=== PATIENT | female | born 1945 | race Caucasian/White ===

== ENCOUNTER → 2016-05-04 | Outpatient (CLI) | payer MEDICARE, OTHER ==
[2016-03-18 16:49] VITALS: BP 135/85
[~2016-05-04] MED LIST: ACET500T68 PO; ALPR0.5T10 PO; ASPI-482 PO; ASPI325T4 PO; BUPR100T6 PO; BUTA-14 PO; BUTA1CAP29 PO; CYCL10TA2 PO; DICY10CA3 PO; ESTR1TAB15 PO; FENT1PAT17 TD; FLUT16SP NS; GABA-585 PO; HYDR-2666 PO; HYDR-2678 PO; IBUP-1060 PO; IBUP200T43 PO; LEVO25TA4 PO; MELO-156 PO; OMEP40CA5 PO; ONDA8TAB12 PO; RISP0.5T18 PO; SIMV20TA PO; ZOLP5TAB PO; [UNRECOGNIZED DRUG - CODE]; [UNRECOGNIZED DRUG - CODE]; [UNRECOGNIZED DRUG - CODE] IJ; [UNRECOGNIZED DRUG - OTHER]; gi cocktail PO
--- NOTE | 2016-05-05 04:46 | PAIN ---
DATE OF SERVICE: 05/04/2016 PROGRESS NOTE DIAGNOSES: 1. Cervical radiculopathy with post-cervical laminectomy syndrome. 2. Lumbar degenerative disk disease with lumbar radiculopathy. 3. Bilateral knee joint pain and hip joint pain with primary osteoarthritis. HISTORY OF PRESENT ILLNESS: The patient is a 70-year-old female who returns for followup status post recent revision and replacement of right-sided stimulator generator with good results with the stimulation, she is reporting very good coverage, but she is having some pain with the pocket that the generator has been flipping posteriorly in the inferior aspect of it causing some pain and some pressure on her back itself. When it does this, the patient reports that she is having some significant pain and has to manually pushed down and flip the stimulator down into a more flat configuration to get it to charge and to be more comfortable. The patient reports otherwise doing well. Reports the pain as 4 on a scale of 10. Overall still pain in the low back and leg as well as the neck and shoulders with a combination of intrathecal therapy with her intrathecal pump and the stimulator she is doing very well with overall about 70% to 80% improvement without any side effects. The patient's old chart was reviewed as her current medication regimen updated. Current review of systems updated today as well. PHYSICAL EXAMINATION: VITAL SIGNS: Today, the patient's blood pressure is 119/64, pulse 85, respirations 16, temperature 98.1 degrees Fahrenheit, height is 5 feet 2 inches, weight is 205 pounds. GENERAL: The patient is awake, alert, oriented, appropriate, very pleasant demeanor. HEENT: Shows normocephalic, atraumatic. Extraocular movements are intact, symmetrical. Oral cavity, mucous membranes are moist and pink. Dentition is intact. NECK: Shows anterior throat supple. Swallow reflex is symmetrical. Neck shows good rotation motion both laterally greater than 45 degrees as well as extension, full forward flexion without significant tenderness. CHEST: Shows normal on inspection with breath sounds clear to auscultation bilaterally. HEART: Shows S1 and S2 clear. ABDOMEN: Soft, obese, nontender, nondistended. Easily palpable intrathecal pump is noted in the left lower quadrant, which is nontender. BACK: The patient's back shows spine grossly midline. Well-healed surgical scarring is noted. The lumbar paraspinous muscle shows some [id number] tenderness with palpation, but only diffusely in the lower lumbar distribution bilaterally. The patient's right-sided gluteus shows a well-healed surgical scar from recent replacement of spinal cord stimulator battery with some mobility with palpation in the inferior aspect of the stimulator itself, as it is anchored internally to the pocket on the superior aspect where the anchoring devices holes for anchoring are provided. But the patient's pocket is still manipulatable and the generator can be pushed into a more horizontal position, posterior vertical when the patient is standing, which is very tender for her. PLAN: Options were discussed with the patient. We will schedule patient for revision of the right-sided stimulator generator pocket and have this performed once scheduling time is available. We discussed the risk of the procedure including bleeding, infection, possibility of poor results regarding pain control. Damage to the stimulator itself and the patient is willing to undergo this and we will get her scheduled when available. The patient was given refill medications today for hydrocodone as she is doing well with this, but with the increased pain in her stimulator pocket has been using more of these lately, but again without side effect. CHITRA EPPERSON MD DR: TRAV/benito JOB#: [id number] / [id number]
== END | disposition home or self-care (01) ==
LOC: PNCL 11:09
PROVIDERS: ATTEND Anesthesiology
DX: M54.12 Radiculopathy, cervical region (principal); M96.1 Postlaminectomy syndrome, not elsewhere classified; M51.16 Intervertebral disc disorders with radiculopathy, lumbar region; M25.562 Pain in left knee; M25.561 Pain in right knee; M25.552 Pain in left hip; M25.551 Pain in right hip; M17.0 Bilateral primary osteoarthritis of knee
CPT/HCPCS: G0463

== ENCOUNTER → 2016-05-27 | Outpatient (CLI) | payer MEDICARE, OTHER ==
[2016-03-18 16:49] VITALS: BP 135/85
[~2016-05-27] MED LIST changes: +IOHEXOL 180 MG/ML 10 ML VIAL. ONE
--- NOTE | 2016-05-28 03:12 | PAIN ---
DATE OF SERVICE: 05/27/2016 DIAGNOSES: 1. Bilateral knee joint pain with primary osteoarthritis of the knee joints. 2. Cervical radiculopathy with post-laminectomy syndrome. 3. Degenerative disk disease, lumbar spine with lumbar spinal cord stimulator. HISTORY OF PRESENT ILLNESS: The patient is a 70-year-old female who returns for followup status post previous knee injections as well as revision of her spinal cord stimulator generator and intrathecal pump. The patient reports significant pain in the knees bilaterally, right greater than left, it is sharp, aching and dull alternating, rates it 8 on a scale of 10, mostly in the right knee and we have had good success with intra-articular knee joint injections in the past with steroid as well as Synvisc and she would like to try the Synvisc routine again. We discussed this with her earlier and she returns today for #1 Synvisc injection in the right knee. The patient reports it is sharp, again aching alternating with dull pain, worse with standing and walking, worse with putting all of her weight on her knees such as stepping up on stairs or on a curb with all the weight on one side. The patient reports right knee is worse than the left in the pain ____ and we will start with this today. The patient reports no new motor or sensory deficits, no new bowel or bladder incontinence or other complaints. The patient is doing well with her medication regimen, intrathecal pump as well as oral medications with good results and about 75% improvement without side effects with this in regard to the medications that she is taking. PHYSICAL EXAMINATION: VITAL SIGNS: The patient's blood pressure ____/92, pulse 74, respirations 18, temperature 97.9 degrees Fahrenheit, height is 5 feet 2 inches, weight is 205 pounds. GENERAL: The patient is awake, alert, oriented, appropriate, very pleasant demeanor. The patient accompanied by her . HEENT: Head shows normocephalic, atraumatic. The patient wears eyeglasses. Extraocular movements are intact and symmetrical. Oral cavity, mucous membranes are moist and pink. Dentition is intact. NECK: Shows anterior throat supple without palpable lymphadenopathy noted. Swallow reflex is symmetrical. CHEST: Shows normal on inspection. Breath sounds clear to auscultation bilaterally. HEART: Shows S1 and S2 clear. ABDOMEN: Soft, nontender, nondistended. Well-healed midline surgical scars noted. The patient has a small area on the left of the midline near the surgical scar where she does seem to have a slight outpouching consistent with a possible herniation from the previous surgery without any bowel sounds within it, but mildly tender with bearing down shows increased bulging of this area just to the left of midline in the upper abdomen. Otherwise, nontender. The patient's intrathecal pump is easily palpable without tenderness. BACK: Shows spine grossly midline. Lumbar paraspinous musculature shows some moderate tenderness throughout with palpation bilaterally and intrathecally ____spinal cord stimulator generator is palpable over the right gluteus, which has not been moving as much by her report and indeed it cannot, I was unable to get it to move or flip positions on exam today and is nontender with palpation. EXTREMITIES: Lower extremities show deep tendon reflexes 1+ in the patellar and tendo calcaneus tendons. Patient's knee shows tenderness with weightbearing only, good range of motion in hinged fashion bilaterally without crepitus or popping or ratcheting. PLAN: Options were discussed with the patient. Patient's old chart was reviewed as her current medication regimen and updated. Current review of systems updated today as well. We will plan on a right intra-articular knee joint injection with Synvisc with fluoroscopic guidance. Risks were again discussed including, but not limited to bleeding, infection, possibility of intravascular injection sequelae, spread of local anesthetic and numbness, exposure to fluoroscopy and poor results regarding pain control. The patient understands and wishes to proceed. The patient will return to clinic in approximately one week for a second injection of the Synvisc in the right knee. The patient was counseled as to activity levels as well as side effects to be aware of and followup appointment. DIAGNOSIS: Primary osteoarthritis, right knee joint. PROCEDURE: Intra-articular knee joint injection on the right with Synvisc using C-arm fluoroscopic guidance under sterile prep and drape using local anesthesia. MEDICATIONS INJECTED: 2 mL of Synvisc and 1 mL of Isovue contrast. CONDITION AT DISCHARGE: The patient is stable. The patient tolerated the procedure well, had no complications. CHITRA EPPERSON MD DR: TRAV/benito JOB#: [id number] / [id number]
== END ==
LOC: PNCL 10:01
PROVIDERS: ATTEND Anesthesiology
DX: M17.11 Unilateral primary osteoarthritis, right knee (principal); M51.36 Other intervertebral disc degeneration, lumbar region; M48.06 Spinal stenosis, lumbar region; M96.1 Postlaminectomy syndrome, not elsewhere classified; M54.12 Radiculopathy, cervical region; F41.9 Anxiety disorder, unspecified; F32.9 Major depressive disorder, single episode, unspecified; J44.9 Chronic obstructive pulmonary disease, unspecified; E03.9 Hypothyroidism, unspecified; Z90.49 Acquired absence of other specified parts of digestive tract; Z90.710 Acquired absence of both cervix and uterus
CPT/HCPCS: 20610; 77002

== ENCOUNTER → 2016-06-09 | Outpatient (CLI) | payer MEDICARE, OTHER ==
[2016-03-18 16:49] VITALS: BP 135/85
--- NOTE | 2016-06-10 23:01 | PAIN ---
DATE OF SERVICE: 06/09/2016 DIAGNOSES: 1. Cervical radiculopathy with post-cervical laminectomy syndrome. 2. Lumbar degenerative disk disease. 3. Bilateral knee joint pain with primary osteoarthritis. HISTORY OF PRESENT ILLNESS: The patient is a 70-year-old female who returns for followup status post right knee Synvisc injection about a week and a half ago. The patient reports she did very well for the first week or so, but the pain is beginning to return in the right knee especially with weightbearing, standing, walking, climbing stairs or putting all of her weight on her right leg, anywhere from 4 to a 10 on scale of 10, it was much worse last night, did awaken her from sleep actually, but is now 4 today. The patient reports no new motor or sensory deficits or other complaints, still some low back pain. The patient also with intrathecal pump and spinal cord stimulator and her pump is due for refill tomorrow actually. Patient's right knee shows significant pain, aching and dull, again worse with weightbearing, standing. Left knee is somewhat painful as well, but only about 50% of the pain level of the right knee she is experiencing. The patient reports no new motor or sensory deficits, no new bowel or bladder incontinence or other complaints. PHYSICAL EXAMINATION: VITAL SIGNS: The patient's blood pressure 130/94, pulse 77, respirations 18, temperature 98.3 degrees Fahrenheit, height is 5 feet 2 inches, weight is 207 pounds. GENERAL: The patient is awake, alert, oriented, appropriate, very pleasant demeanor. HEENT: Head shows normocephalic, atraumatic. Extraocular movements are intact and symmetrical. Oral cavity, mucous membranes are moist and pink. Dentition is intact. NECK: Shows anterior throat supple without palpable lymphadenopathy noted. Swallow reflex is symmetrical. CHEST: Shows normal on inspection. HEART: Shows S1 and S2 clear. ABDOMEN: Soft, nontender, nondistended. Patient does have a slight hernia next to ____ midline scar just to the left and easily palpable intrathecal pump in the left lower quadrant, which is nontender. BACK: The patient's back shows spine grossly midline. Well-healed surgical scarring is noted. Spinal cord stimulator is easily palpable over the right gluteus, but is nontender and scars appear well healed. Lumbar paraspinous muscle shows some moderate tenderness with palpation. EXTREMITIES: The patient's lower extremities show deep tendon reflexes at 1+ in the patellar and tendo calcaneus tendons. Significant tenderness with weightbearing on the right knee especially with putting all of her weight on her right leg such as standing on a step stool and coming up and down ____stairs. The patient reports moderate pain in the left knee, but motor and sensory exam is intact with 4/5 dorsiflexion, extension and equal bilaterally. Peripheral pulses are 1+ posterior tibial and dorsalis pedis pulses, but no peripheral edema is noted bilaterally. PLAN: Options were discussed with the patient. The patient's old chart was reviewed as her current medication regimen and updated. Current review of systems updated today as well. We will proceed with a right knee Synvisc injection, the second in this series with fluoroscopic guidance. Risks were again discussed including, but not limited to bleeding, infection, possibility of intravascular injection sequelae, spread of local anesthetic and numbness, side effects of steroid medications, exposure to fluoroscopy and poor results regarding pain control. The patient understands and wishes to proceed. The patient will return to clinic tomorrow for intrathecal pump refill and will return in about 1 week for third Synvisc injection in the right knee as well. The patient was counseled as to activity level as well as side effects to be aware of. DIAGNOSIS: Primary osteoarthritis, bilateral knee joints. PROCEDURE: Right knee intraarticular Synvisc injection with local anesthesia under sterile prep and drape and using a C-arm fluoroscopic guidance. MEDICATIONS INJECTED: Synvisc 2 mL and 2 mL of Isovue contrast. CONDITION AT DISCHARGE: Stable. The patient tolerated the procedure well, had no complications. CHITRA EPPERSON MD DR: TRAV/benito JOB#: [id number] / [id number]
== END | disposition home or self-care (01) ==
LOC: PNCL 09:36
PROVIDERS: ATTEND Anesthesiology
DX: M17.0 Bilateral primary osteoarthritis of knee (principal); M54.12 Radiculopathy, cervical region; M96.1 Postlaminectomy syndrome, not elsewhere classified; M51.36 Other intervertebral disc degeneration, lumbar region; I63.9 Cerebral infarction, unspecified; G45.9 Transient cerebral ischemic attack, unspecified; E78.00 Pure hypercholesterolemia, unspecified; J44.9 Chronic obstructive pulmonary disease, unspecified; Z90.49 Acquired absence of other specified parts of digestive tract; E66.9 Obesity, unspecified; K21.9 Gastro-esophageal reflux disease without esophagitis; Z90.710 Acquired absence of both cervix and uterus; N39.0 Urinary tract infection, site not specified; M19.90 Unspecified osteoarthritis, unspecified site; E03.9 Hypothyroidism, unspecified; F41.9 Anxiety disorder, unspecified; F32.9 Major depressive disorder, single episode, unspecified
CPT/HCPCS: 20610; 77002

== ENCOUNTER → 2016-06-10 | Outpatient (CLI) | payer MEDICARE, OTHER ==
[2016-03-18 16:49] VITALS: BP 135/85
[~2016-06-10] MED LIST changes: +BUPIVACAINE MPF 0.75% 30 ML VIAL. ONE; +CLONIDINE PF 5,000 MCG/10 ML VIAL for PC Charging ONLY. EP ONE; +FENTANYL PF 250 MCG/5 ML VIAL. ONE; -IOHEXOL 180 MG/ML 10 ML VIAL. ONE
--- NOTE | 2016-06-12 01:05 | PAIN ---
DATE OF SERVICE: 06/10/2016 DIAGNOSES: 1. Cervical radiculopathy with cervical post-laminectomy syndrome. 2. Bilateral knee joint pain with primary osteoarthritis. 3. Bilateral hip joint pain with osteoarthritis. 4. Lumbar degenerative disk disease with spinal cord stimulator and intrathecal pump therapy. HISTORY OF PRESENT ILLNESS: The patient is a 70-year-old female who returns follow up for pump refill today. The patient reports doing very well. Reports her pain is 0-1 on a scale of 10 with combination of her stimulator and intrathecal pump working very well for good coverage of her pain in her back and legs as well as her neck and shoulders without side effects with approximately a 75%-80% improvement in overall. The patient reports no new motor or sensory deficits. She did have Synvisc injection in her knee yesterday, which she reports is already feeling better on the right knee. The patient reports otherwise doing well. Her K-TRACS reporting has been appropriate to date as was her urinalysis to date. PHYSICAL EXAMINATION: VITAL SIGNS: The patient's blood pressure is 109/65, pulse 56, respirations 20, temperature 98.1 degrees Fahrenheit. Her weight is 204 pounds. GENERAL: The patient is awake, alert, oriented, appropriate, very pleasant demeanor. HEENT: Shows normocephalic, atraumatic. Extraocular movements are intact and symmetrical. The patient wears eye glasses. Oral cavity shows mucous membranes are moist and pink. Dentition is intact. NECK: Shows anterior throat supple without palpable lymphadenopathy noted. Swallow reflex is symmetrical. CHEST: Shows normal on inspection. Breath sounds are clear to auscultation bilaterally. HEART: Shows S1 and S2 clear. ABDOMEN: Obese, soft, nontender, nondistended. There is a slight area left midline in the upper abdomen with a small hernia, which is palpable, but nontender. Easily palpable intrathecal pump is noted in the left lower quadrant, which is mobile and nontender as well. Options were discussed with the patient. The patient's old chart was reviewed as was her current medication regimen and updated. Current review of systems is updated today as well. We will proceed with intrathecal pump, refill and reprogramming, and also PTM reprogramming today. Risks were discussed including but not limited to bleeding, infection, possibility of extravasation of medication with absorption of high concentration of intrathecal medicines with possible resuscitative measures if necessary as well as poor results regarding pain control. The patient understands and wished to proceed. The patient will return for pump refill prior to July and will return next week for additional Synvisc injections in the right knee as scheduled. DIAGNOSES: 1. Cervical radiculopathy, post-cervical laminectomy syndrome. 2. Bilateral knee joint pain. 3. Bilateral hip joint pain with primary osteoarthritis. 4. Lumbar degenerative disk disease. PROCEDURE: Intrathecal pump refill and reprogramming. Under sterile prep and drape using a 22-gauge Clinipace [employer] noncutting needle, pump was accessed easily without difficulty. 2 mL of the old medication was withdrawn and discarded and 40 mL of the new medication containing bupivacaine, clonidine and fentanyl was then replaced in the pump without difficulty. Needle was removed. Sterile bandage was applied. The patient tolerated procedure well, had no complications. CHITRA EPPERSON MD DR: TRAV/benito JOB#: [id number] / [id number]
== END | disposition home or self-care (01) ==
LOC: PNCL 10:45
PROVIDERS: ATTEND Anesthesiology
DX: M51.36 Other intervertebral disc degeneration, lumbar region (principal); M54.12 Radiculopathy, cervical region; M96.1 Postlaminectomy syndrome, not elsewhere classified
CPT/HCPCS: 95991; J0735; J3010; J3490

== ENCOUNTER → 2016-06-22 | Outpatient (CLI) | payer MEDICARE, OTHER ==
[2016-03-18 16:49] VITALS: BP 135/85
[~2016-06-22] MED LIST changes: -BUPIVACAINE MPF 0.75% 30 ML VIAL. ONE; -CLONIDINE PF 5,000 MCG/10 ML VIAL for PC Charging ONLY. EP ONE; -FENTANYL PF 250 MCG/5 ML VIAL. ONE; +HYLAN G-F 20 16 MG/2 ML SYRINGE. ONE; +IOHEXOL 180 MG/ML 10 ML VIAL. ONE
--- NOTE | 2016-06-23 05:12 | PAIN ---
DATE OF SERVICE: 06/22/2016 DIAGNOSES: 1. Bilateral knee joint pain with osteoarthritis primarily in the knee joints. 2. Bilateral hip joint pain with osteoarthritis in the hip joints. 3. Cervical radiculopathy with post-cervical laminectomy syndrome. 4. Lumbar degenerative disk disease with spinal cord stimulator and intrathecal pump implant. HISTORY OF PRESENT ILLNESS: The patient is a 70-year-old female who returns for followup status post Synvisc injections in the right knee x 2, last was on 06/10/2016. The patient reports she is doing very well with this, about 50% improvement overall in the right knee with pain still present with putting all of her weight on that leg such as climbing stairs or steps, but is getting better. The patient reports still some pain at night, rated at 3 on a scale of 10 at its worst. The patient reports it is intermittent in intensity and much less present during the daytime and walking has improved significantly with the Synvisc after her second injection, her ability to become mobile and is noticing more pain in the left knee now and the right one is feeling better. The patient reports no new motor or sensory deficits or other complaints. The patient is also taking hydrocodone on a long-term basis and has recently had a ventral hernia repair and was taking the hydrocodone as we instructed her to do for the postsurgical pain and will need a refill today. We will take care of this as well. She has had very stable dosing, been very stable regimen, appropriate K-TRACS reporting and appropriate urinalysis to date as well. PHYSICAL EXAMINATION: VITAL SIGNS: The patient's blood pressure 124/85, pulse 85, respirations 18, temperature 97.9 degrees Fahrenheit, height is 5 feet 2 inches, weight is 202 pounds. GENERAL: The patient is awake, alert, oriented, appropriate, very pleasant demeanor. HEENT: Shows normocephalic, atraumatic. Extraocular movements are intact and symmetrical. Oral cavity shows mucous membranes moist and pink. Dentition is intact. NECK: Shows anterior throat supple without palpable lymphadenopathy noted. Swallow reflex is symmetrical. CHEST: Shows normal on inspection. Breath sounds clear to auscultation bilaterally. HEART: Shows S1 and S2 clear. ABDOMEN: Obese, soft, nontender. BACK: Nondistended. Well healing surgical scar in the midline is demonstrated with some mild tenderness near the incision site, but otherwise not tender. Bowel sounds are present in all 4 quadrants. The patient's lower extremities shows significant tenderness with weightbearing on the knees, more on the left than the right; however, and better ambulation with less difficulty with balance and not using any assistive devices on her exam today. Options were discussed with the patient and the patient's old chart was reviewed. CURRENT MEDICATIONS: Regimen updated. CURRENT REVIEW OF SYSTEMS: Updated today as well. We will proceed with the third in the series of Synvisc injection in the right knee with fluoroscopic guidance. Risks were again discussed including, but not limited to bleeding, infection, possibility of intravascular injection sequelae, spread of local anesthetic and numbness as well as exposure to fluoroscopy and poor results regarding pain control. The patient understands and wishes to proceed. The patient will return to clinic in approximately 2 weeks for followup, counseled on return appointment, activity level and side effects to be aware of. DIAGNOSES: Primary osteoarthritis, bilateral knee joints with knee pain. PROCEDURE: Synvisc injection, right knee #3 in the series with C-arm fluoroscopic guidance under sterile prep and drape using local anesthetic. Medications injected is 2 mL of Synvisc and 1.5 mL of Isovue contrast. Condition on discharge is stable. The patient tolerated the procedure well. Had no complications. CHITRA EPPERSON MD DR: TRAV/benito JOB#: [id number] / [id number]
== END | disposition home or self-care (01) ==
LOC: PNCL 10:29
PROVIDERS: ATTEND Anesthesiology
DX: M17.0 Bilateral primary osteoarthritis of knee (principal); F41.9 Anxiety disorder, unspecified; F32.9 Major depressive disorder, single episode, unspecified; E03.9 Hypothyroidism, unspecified; E66.9 Obesity, unspecified; J44.9 Chronic obstructive pulmonary disease, unspecified; K21.9 Gastro-esophageal reflux disease without esophagitis; Z87.442 Personal history of urinary calculi; Z87.39 Personal history of other diseases of the musculoskeletal system and connective tissue; Z90.49 Acquired absence of other specified parts of digestive tract; Z96.698 Presence of other orthopedic joint implants
CPT/HCPCS: 20610; J7325

== ENCOUNTER → 2016-06-29 | Outpatient (CLI) | payer MEDICARE, OTHER ==
[2016-03-18 16:49] VITALS: BP 135/85
[~2016-06-29] MED LIST changes: -HYLAN G-F 20 16 MG/2 ML SYRINGE. ONE
--- NOTE | 2016-06-30 05:18 | PAIN ---
DATE OF SERVICE: 06/29/2016 DIAGNOSES: 1. Cervical radiculopathy with post-cervical laminectomy syndrome. 2. Bilateral knee joint pain with primary osteoarthritis in bilateral knee joints. 3. Bilateral hip joint pain with primary osteoarthritis in bilateral hip joints. 4. Degenerative disk disease of lumbar spine with spinal cord stimulator and intrathecal pump therapy. HISTORY OF PRESENT ILLNESS: The patient is a 79-year-old female, who returns for a followup, status post right-sided Synvisc injections in her knee x 3. The patient reports about 50% improvement in the right knee, but with still some significant pain at night in the knee itself and with standing and walking, but better than it was. The patient is still having some significant pain and hoping to avoid knee replacement anytime soon, but this may be inevitable. The patient reports that her pain now is a 6 on a scale of 10, and the left knee is much more painful than the right one after her Synvisc injections and we will plan to start on her left knee today with the first Synvisc injection in this series. The patient reports again pain that is worse at night on the right side as well as the left, worse with standing and walking, putting all of her weight on her left leg such as climbing stairs. The patient reports no new motor or sensory deficits and rates her pain as a 6 on a scale of 10. No new bowel or bladder incontinence or other complaints. PHYSICAL EXAMINATION: VITAL SIGNS: Today, the patient's blood pressure is 122/81, pulse 77, and respirations 18. Height is 5 feet 2 inches, weight is 202 pounds. The patient's temperature is 98.2 degrees Fahrenheit. GENERAL: The patient is awake, alert, oriented, and appropriate, very pleasant demeanor. HEENT: Head shows normocephalic, atraumatic. The patient wears eyeglasses. Extraocular movements are intact and symmetrical. Oral cavity shows mucous membranes moist and pink. Dentition is intact. NECK: Shows anterior throat supple without palpable lymphadenopathy noted. Swallow reflex is symmetrical. CHEST: Shows normal with inspection. Breath sounds are clear to auscultation bilaterally. HEART: Shows S1 and S2 clear. No murmurs auscultated. ABDOMEN: Obese, soft, nontender, and nondistended. The patient has a well-healed surgical scar in the midline, which is from a recent hernia repair, which is mildly tender in the inferior aspect only, but without rebound and without guarding demonstrated. BACK: Shows spine grossly in midline with some moderate tenderness with palpation in the lower lumbar distribution, but only diffusely in the lumbar paraspinous muscles. The patient's lower extremities show good range of motion in the knee joints with some tenderness in the left knee with even passive motion, but without any specific ratcheting or popping sensation to either knee. Motor exam is strong with approximately 4 on a scale of 5, but equal dorsiflexion, extension, quadriceps, and hamstring flexion and symmetrical. PLAN: Options were discussed with the patient. The patient's old chart was reviewed as was her current medication regimen updated. Current review of systems updated today as well. We will proceed with a left-sided intra-articular knee joint injection with Synvisc under fluoroscopic guidance. Risks were again discussed including, but not limited to bleeding, infection, possibility of epidural hematoma and possibility of intravascular injection and its sequelae, spread of local anesthetic and numbness, exposure to fluoroscopy as well as poor results regarding pain control. The patient understands and wishes to proceed. The patient will return to clinic in approximately 1 week for followup. She was counseled on return appointment, activity level, and side effects to be aware of. DIAGNOSIS: Primary osteoarthritis, bilateral knee joints. PROCEDURE: Left knee joint Synvisc injection with fluoroscopic guidance under sterile prep and drape using local anesthetic. Medication injected is 2 mL of Synvisc and 1.5 mL of Isovue for contrast. CONDITION AT DISCHARGE: Stable. The patient tolerated the procedure well, had no complications. CHITRA EPPERSON MD DR: TRAV/benito JOB#: [id number] / [id number]
== END | disposition home or self-care (01) ==
LOC: PNCL 10:25
PROVIDERS: ATTEND Anesthesiology
DX: M17.0 Bilateral primary osteoarthritis of knee (principal); E78.00 Pure hypercholesterolemia, unspecified; J44.9 Chronic obstructive pulmonary disease, unspecified; E66.9 Obesity, unspecified; K21.9 Gastro-esophageal reflux disease without esophagitis; M19.90 Unspecified osteoarthritis, unspecified site; F41.9 Anxiety disorder, unspecified; F32.9 Major depressive disorder, single episode, unspecified; E03.9 Hypothyroidism, unspecified; Z87.39 Personal history of other diseases of the musculoskeletal system and connective tissue; Z96.698 Presence of other orthopedic joint implants; Z87.442 Personal history of urinary calculi; Z90.49 Acquired absence of other specified parts of digestive tract; Z90.710 Acquired absence of both cervix and uterus
CPT/HCPCS: 20610; 77002

== ENCOUNTER → 2016-07-06 | Outpatient (CLI) | payer MEDICARE, OTHER ==
[2016-03-18 16:49] VITALS: BP 135/85
[~2016-07-06] MED LIST changes: +HYLAN G-F 20 16 MG/2 ML SYRINGE. ONE
--- NOTE | 2016-07-07 05:15 | PAIN ---
DATE OF SERVICE: 07/06/2016 PROGRESS NOTE FOR PAIN CLINIC DIAGNOSES: 1. Cervical radiculopathy with post-cervical laminectomy syndrome. 2. Lumbar radiculopathy with lumbar degenerative disk disease. 3. Bilateral knee joint pain with primary osteoarthritis of knee joints. 4. Bilateral hip joint pain with osteoarthritis of the hip joints. HISTORY OF PRESENT ILLNESS: The patient is a 70-year-old female who returns for followup status post left knee Synvisc injection x 1 and 3 injections on the right. The patient reports that her right knee is still having some significant pain, especially with walking, standing and weightbearing, putting all of her weight on one side. Left side shows improvement of about 40% after the last injection. The patient reports much better with walking on her left knee and she is considering checking back with her orthopedist regarding right knee replacement in the near future. The patient reports no new motor or sensory deficits. Still some aches at night in the knee, but significantly improved on the left side with weightbearing and standing. The patient reports no new motor or sensory deficits, no new bowel or bladder incontinence or other complaints, functioning well with her spinal cord stimulator as well as intrathecal pump without side effects. PHYSICAL EXAMINATION: VITAL SIGNS: Today, the patient's blood pressure is 117/85, pulse 99, respirations 18, temperature 98.0 degrees Fahrenheit, height is 5 feet 2 inches, weight is 201 pounds. GENERAL: The patient is awake, alert, oriented, appropriate, very pleasant demeanor. The patient accompanied by her spouse. HEENT: Head shows normocephalic, atraumatic. The patient wears eyeglasses. Extraocular movements are intact and symmetrical. Oral cavity, mucous membranes are moist and pink. Dentition is intact. NECK: Shows anterior throat supple without palpable lymphadenopathy noted. Swallow reflex is symmetrical. CHEST: Shows normal on inspection. Breath sounds are clear to auscultation bilaterally. HEART: Shows S1 and S2 clear. ABDOMEN: Soft, nontender, nondistended. No palpable organomegaly is noted. No rebound or guarding demonstrated. BACK: Shows spine grossly midline. Well-healed surgical scarring is noted once again with some moderate tenderness to palpation in the lower lumbar distribution bilaterally, but without radiation. EXTREMITIES: The patient's lower extremities show significant tenderness with palpation over the right anterior aspect of the patella and the medial component of the knee with good range of motion, however, bilaterally without popping or ratcheting noted. Left knee shows no significant tenderness with palpation medially or laterally over the collateral ligaments and good range of motion as well without ratcheting, popping or other abnormalities. Motor exam remain strong with lower extremities at approximately 4 on a scale of 5, but equal with dorsiflexion and extension bilaterally. PLAN: Options were discussed with the patient at this time. The patient's old chart was reviewed as her current medication regimen updated. Current review of systems updated today as well. We will proceed with a second Synvisc injection in the left knee under fluoroscopic guidance. Risks were again discussed including, but not limited to bleeding, infection, possibility of intravascular injection sequelae, spread of local anesthetic and numbness, side effects of contrast and exposure to fluoroscopy as well as poor results regarding pain control. The patient understands and wishes to proceed. The patient will return to the clinic in approximately 2 weeks for followup, was counseled on return appointment, activity level and side effects to be aware of. DIAGNOSIS: Primary osteoarthritis, bilateral knee joints. PROCEDURE: Left knee Synvisc injection #2 with ____ fluoroscopic guidance under sterile prep and drape using local anesthetic. Medication injected is 2 mL of Synvisc and 1 mL Isovue contrast. CONDITION AT DISCHARGE: Stable. The patient tolerated the procedure well, had no complications. CHITRA EPPERSON MD DR: TRAV/benito JOB#: [id number] / [id number]
== END | disposition home or self-care (01) ==
LOC: PNCL 10:32
PROVIDERS: ATTEND Anesthesiology
DX: M17.0 Bilateral primary osteoarthritis of knee (principal); M16.0 Bilateral primary osteoarthritis of hip; M51.16 Intervertebral disc disorders with radiculopathy, lumbar region; M96.1 Postlaminectomy syndrome, not elsewhere classified; J44.9 Chronic obstructive pulmonary disease, unspecified; E78.00 Pure hypercholesterolemia, unspecified; E66.9 Obesity, unspecified; M19.90 Unspecified osteoarthritis, unspecified site; F41.9 Anxiety disorder, unspecified; F32.9 Major depressive disorder, single episode, unspecified; E03.9 Hypothyroidism, unspecified; Z86.73 Personal history of transient ischemic attack (TIA), and cerebral infarction without residual deficits; Z90.49 Acquired absence of other specified parts of digestive tract; Z87.442 Personal history of urinary calculi
CPT/HCPCS: 20610

== ENCOUNTER → 2016-07-20 | Outpatient (CLI) | payer MEDICARE, OTHER ==
[2016-03-18 16:49] VITALS: BP 135/85
--- NOTE | 2016-07-21 03:03 | PAIN ---
DATE OF SERVICE: 07/20/2016 PROGRESS NOTE FOR PAIN CLINIC DIAGNOSES: 1. Bilateral knee joint pain with primary osteoarthritis, bilateral knees. 2. Bilateral hip joint pain with osteoarthritis of the hips. 3. Lumbar degenerative disk disease. 4. Cervical radiculopathy with post-cervical laminectomy syndrome. HISTORY OF PRESENT ILLNESS: The patient is a 70-year-old female who returns for followup status post Synvisc injection x 2 in the left knee. The patient reports her pain is decreased by about 50% overall in the left knee. The right knee, however, is significantly painful, is a 10/10, left knee is a 7 on a scale of 10, worse with walking up and down stairs now ____ on the right side primarily, but still significant pain on both sides. The patient reports that she feels Synvisc has been helping on the left side greater than on the right as she has had 3 injections on the right side in the past as well. The patient does have orthopedic referral pending for evaluation for total knee replacement on the right side. The patient reports otherwise doing fairly well. No new motor or sensory deficits, no new complaints. Intrathecal pump as well as spinal cord stimulator functioning well without side effects on either. The patient reports the pain is worse again with walking down stairs on the left knee, ____ left noticeable than the right, but still significant pain with weightbearing. PHYSICAL EXAMINATION: VITAL SIGNS: The patient's blood pressure is 150/96, pulse 85, respirations 18, temperature is 98.0 degrees Fahrenheit, height is 5 feet 2 inches, weight is 201 pounds. GENERAL: The patient is awake, alert, oriented, appropriate, has a very pleasant demeanor. The patient is accompanied by her spouse. HEENT: Shows normocephalic, atraumatic. Extraocular movements are intact, symmetrical. Oral cavity, mucous membranes are moist and pink. Dentition is intact. NECK: Shows anterior throat supple without palpable lymphadenopathy noted. Swallow reflex is symmetrical. CHEST: Shows normal on inspection. Breath sounds are clear to auscultation bilaterally. HEART: Shows S1 and S2 clear. ABDOMEN: Obese, soft, nontender, nondistended. Easily palpable intrathecal pump is noted without pain reported on manipulation. BACK: Shows spine grossly in the midline. Some flattening of the lumbar lordotic curvature is noted with previously well-healed surgical scars and spinal cord stimulator in the right gluteus without tenderness as well with palpation over the battery itself. EXTREMITIES: The patient's lower extremities showed deep tendon reflexes 1+ in the patellar and tendo calcaneus tendons. Motor exam is approximately 4 on a scale of 5, but equal and symmetrical with dorsiflexion, extension, quadriceps and hamstring flexion. The patient's knee shows good range of motion both passively and actively without ratcheting or popping noted. PLAN: Options were discussed with the patient and the patient's old chart was reviewed as was her current medication regimen and updated. Current review of systems updated today as well. We will proceed with a third Synvisc injection in the left knee with fluoroscopic guidance. Risks were again discussed including, but not limited to bleeding, infection, possibility of intravascular injection sequelae, spread of local anesthetic and numbness, exposure to fluoroscopy as well as poor results regarding pain control. The patient understands and wishes to proceed. The patient will return to clinic in approximately 2 weeks for followup, was counseled on return appointment, activity level and side effects to be aware of. DIAGNOSIS: Primary osteoarthritis, bilateral knee joints. PROCEDURE: Left knee Synvisc injection with fluoroscopic guidance under sterile prep and drape using local anesthetic. MEDICATIONS INJECTED: 2 mL of Synvisc and 1.5 mL of Isovue for contrast. CONDITION AT DISCHARGE: Stable. The patient tolerated the procedure well, had no complications. CHITRA EPPERSON MD DR: TRAV/benito JOB#: [id number] / [id number]
== END ==
LOC: PNCL 10:30
PROVIDERS: ATTEND Anesthesiology
DX: M17.0 Bilateral primary osteoarthritis of knee (principal); M16.0 Bilateral primary osteoarthritis of hip; M51.36 Other intervertebral disc degeneration, lumbar region; M50.30 Other cervical disc degeneration, unspecified cervical region
CPT/HCPCS: 20610; 77002; J7325

== ENCOUNTER → 2016-08-09 | Outpatient (CLI) | payer MEDICARE, OTHER ==
[2016-03-18 16:49] VITALS: BP 135/85
[~2016-08-09] MED LIST changes: +BUPIVACAINE MPF 0.75% 30 ML VIAL. ONE; -HYLAN G-F 20 16 MG/2 ML SYRINGE. ONE; -IOHEXOL 180 MG/ML 10 ML VIAL. ONE; +cloNIDine PF 5,000 MCG/10 ML VIAL EP ONE; +fentaNYL PF VIAL 250 MCG/5 ML VIAL ONE
--- NOTE | 2016-08-10 02:24 | PAIN ---
DATE OF SERVICE: 08/09/2016 PROGRESS NOTE FOR PAIN CLINIC DIAGNOSES: 1. Cervical radiculopathy with post-cervical laminectomy syndrome. 2. Bilateral knee joint pain with primary osteoarthritis, bilateral knee joints. 3. Bilateral hip joint pain with osteoarthritis of the bilateral hip joints. 4. Lumbar degenerative disk disease with spinal cord stimulator and intrathecal pump therapy. HISTORY OF PRESENT ILLNESS: The patient is a 71-year-old female who returns for followup status post left knee joint Synvisc injection with good results, but the pain has been returning after 07/20/2016. It was her third injection of Synvisc at that time and reports she did well, but the pain is still bothering her. She has seen her orthopedic surgeon for followup and he is recommending a total knee replacement. She is going to wait until the end of the summer to do this due to personal scheduling issues, but does want to get these done, probably the right knee replaced before the left one. The patient reports otherwise doing fairly well, doing well with her intrathecal pump, which she is here for refill and reprogramming today. No specific side effects and her pain is controlled fairly well, she reports anywhere from a 2 to a 10 on a scale of 10, but 10 is in the knees, mostly on the right side. The patient reports no new motor or sensory deficits, no new bowel or bladder incontinence or other complaints. Again, no side effects with the medications and reports about a 75% improvement with medications in the pump and her stimulator combined. The patient is getting good stimulation in the back and legs where she prefers it with good comfort with this as well. The patient also taking oral medications with good results and no side effects, constipation, dizziness, drowsiness or sedation as well. PHYSICAL EXAMINATION: VITAL SIGNS: Today, the patient's blood pressure is 155/90, pulse is 81, respirations 18, temperature is 98.2 degrees Fahrenheit, height is 5 feet 2 inches, weight is 200 pounds. GENERAL: The patient is awake, alert, oriented, appropriate, has a very pleasant demeanor. HEENT: Shows normocephalic, atraumatic. Extraocular movements are intact, symmetrical. Oral cavity, mucous membranes moist and pink. Dentition is intact. NECK: Shows anterior throat supple without palpable lymphadenopathy noted. Swallow reflex is symmetrical. CHEST: Shows normal on inspection with breath sounds clear to auscultation bilaterally. HEART: Shows S1 and S2 clear. No murmurs auscultated. ABDOMEN: Soft, obese, nontender, nondistended. No palpable organomegaly is noted. No rebound or guarding demonstrated. Easily palpable intrathecal pump is noted in the left lower quadrant, which is mobile, but nontender with well-healed surgical scar in this region as well. PLAN: Options were discussed with the patient. The patient's old chart was reviewed as was her current medication regimen and updated. Current review of systems updated today as well. We will proceed with the intrathecal pump refill and reprogramming today. Risks were discussed including, but not limited to bleeding, infection, possibility of intravascular injection and sequelae, spread of intrathecal medication outside of the pump with absorption and potential resuscitative efforts as well as poor results regarding pain control. The patient understands and wishes to proceed. Under sterile prep and drape, the patient's left lower quadrant of the abdomen was prepped over the site of her intrathecal pump. Using a 22-gauge noncutting [employer] needle, was accessed without difficulty. Aspiration of 2 mL of old medication was withdrawn and discarded and 40 mL of new medication containing bupivacaine, clonidine and fentanyl as noted was then injected into the pump without difficulty. Needle was withdrawn. Sterile bandage was applied. The pump was reprogrammed as to volume and rate settings. Also, PTM settings reprogrammed again. The patient will follow up for refill prior to 10/08/2016 and will check with her PTM if this date will change with use. The patient was discharged in stable and good condition without complications from the procedure. CHITRA EPPERSON MD DR: TRAV/benito JOB#: [id number] / [id number]
== END | disposition home or self-care (01) ==
LOC: PNCL 10:30
PROVIDERS: ATTEND Anesthesiology
DX: M17.0 Bilateral primary osteoarthritis of knee (principal); M16.0 Bilateral primary osteoarthritis of hip; M51.36 Other intervertebral disc degeneration, lumbar region; M96.1 Postlaminectomy syndrome, not elsewhere classified; M54.16 Radiculopathy, lumbar region; J44.9 Chronic obstructive pulmonary disease, unspecified; E78.00 Pure hypercholesterolemia, unspecified; E66.9 Obesity, unspecified; K21.9 Gastro-esophageal reflux disease without esophagitis; E03.9 Hypothyroidism, unspecified; F41.9 Anxiety disorder, unspecified; F32.9 Major depressive disorder, single episode, unspecified; Z90.49 Acquired absence of other specified parts of digestive tract; Z90.710 Acquired absence of both cervix and uterus
CPT/HCPCS: 62370; J0735; J3010; J3490; 95991

== ENCOUNTER → 2016-10-04 | Outpatient (CLI) | payer MEDICARE, OTHER ==
[2016-03-18 16:49] VITALS: BP 135/85
[~2016-10-04] MED LIST changes: -BUPIVACAINE MPF 0.75% 30 ML VIAL. ONE; +CONTRAST GIVEN MC PRN; +IOHEXOL 300 MG/ML 75 ML VIAL IV ONE; -cloNIDine PF 5,000 MCG/10 ML VIAL EP ONE; -fentaNYL PF VIAL 250 MCG/5 ML VIAL ONE
[2016-10-04 09:19] LABS: CALCIUM 8.5 mg/dL (8.5-10.1); CREATININE 0.9 mg/dL (0.6-1.0); GFR 61.7
--- NOTE | 2016-10-04 10:47 | RAD ---
Indication abdominal pain. Assess for potential hernia. Axial images through the abdomen and pelvis were obtained. Approximately 75 cc of Omnipaque 300 was administered intravenously. Only a very small amount of oral contrast was administered. Note is made of a previous examination 06/27/2013. The lung bases are clear. There is a very small hernia in the upper abdomen, containing only fat and appearing uncomplicated. There is considerable atrophy associated with the rectus muscles right greater than left and there is diastases of same. The mid transverse colon abuts the linea alba but does not protrude through it. No additional abdominal wall finding is seen. Battery device in the subcutaneous soft tissues of the left ventral pelvis is noted. Neuro stimulating device is also noted. Postoperative changes are seen associated with the lumbar spine. The liver and spleen appear unremarkable. Clips are noted in the gallbladder fossa. Slightly prominent extrahepatic biliary system is noted. This is likely a function of the postcholecystectomy state. The appearance is similar to the previous exam. The liver and spleen appear unremarkable. No pancreatic adrenal or renal anomalies are seen. Acute finding in the abdomen is not apparent. No acute finding is apparent in the pelvis. IMPRESSION: No acute finding seen in the abdomen or pelvis. Tiny ventral abdominal wall hernia in the upper abdomen containing only fat. Marked thinning of the rectus muscles with associated diastases of same. A portion of the transverse colon abuts the linea alba but does not protrude through it.
== END | disposition home or self-care (01) ==
LOC: CT 09:27
PROVIDERS: ATTEND Surgery
DX: K43.9 Ventral hernia without obstruction or gangrene (principal)
CPT/HCPCS: 36415; 74177; 80048; Q9967

== ENCOUNTER → 2016-10-07 | Outpatient (CLI) | payer MEDICARE, OTHER ==
[2016-03-18 16:49] VITALS: BP 135/85
[~2016-10-07] MED LIST changes: -ASPI325T4 PO; +ASPI325T8 PO; +BUPIVACAINE MPF 0.75% 30 ML VIAL. ONE; -CONTRAST GIVEN MC PRN; -HYDR-2666 PO; +HYDR-2758 PO; -IOHEXOL 300 MG/ML 75 ML VIAL IV ONE; -MELO-156 PO; +MELO7.5T29 PO; -RISP0.5T18 PO; +RISP0.5T24 PO; +cloNIDine PF 5,000 MCG/10 ML VIAL EP ONE; +fentaNYL PF VIAL 250 MCG/5 ML VIAL ONE
--- NOTE | 2016-10-08 09:07 | PAIN ---
DATE OF SERVICE: 10/07/2016 DIAGNOSES: 1. Cervical radiculopathy with post-cervical laminectomy syndrome. 2. Bilateral knee joint pain with osteoarthritis. 3. Bilateral hip joint pain with osteoarthritis. 4. Degenerative disk disease of the lumbar spine with spinal cord stimulator and intrathecal pump therapy. HISTORY OF PRESENT ILLNESS: The patient is a 71-year-old female who returns for followup status post intrathecal pump therapy and for refill today of the intrathecal pump and reprogramming. The patient reports she has been doing very well, has been feeling much better, has decreased her hydrocodone use, has been taking Tylenol instead, but still having some significant headaches and migraines, she is taking some butalbital for that, which seems to be helping fairly well. Also, the patient has been taking Tylenol hydrocodone mostly at night, which is helping with her knee and hip pain. The patient reports her pain is a 7 on a scale of 10 at its worst; it is a 1 on a scale of 10 currently. The patient reports she still awakens from sleep with the pain mostly from her back and knees, about 6 hours of sleep at a time to reposition, get up and walk around, change position in the bed, she is able to get back to sleep. The patient reports no new motor or sensory deficits, no new bowel or bladder incontinence, no side effects with her medications reported. PHYSICAL EXAMINATION: VITAL SIGNS: The patient's blood pressure is 152/80, pulse 68, respirations are 18, temperature 98.0 degrees Fahrenheit, height is 5 feet 2 inches, weight is 205 pounds. GENERAL: The patient is awake, alert, oriented, appropriate, very pleasant demeanor. HEENT: Shows normocephalic and atraumatic. Extraocular movements are intact and symmetrical. Oral cavity shows mucous membranes are moist and pink. Dentition is intact. NECK: Shows anterior throat supple. CHEST: Shows normal on inspection. Breath sounds are clear to auscultation bilaterally. HEART: Shows S1 and S2 clear. ABDOMEN: Obese, soft, nontender, nondistended. The patient's left lower quadrant shows easily palpable intrathecal pump. Options were discussed with the patient. The patient's old chart was reviewed as her current medication regimen and updated. Current review of systems updated today as well, and we will proceed with the intrathecal pump refill and reprogramming as well as PTM reprogramming. This is done under sterile prep and drape using 22-gauge noncutting [employer] kit needle, accessed the pump without difficulty after EMLA cream topical anesthetic, 2 mL of old medication was removed and 40 mL of new medication containing bupivacaine, fentanyl, and clonidine as documented was then replaced. The patient tolerated the procedure well, had no complications. Sterile bandage was applied once the needle was removed. The pump was then reprogrammed as was the PTM. The patient will follow up with return prior to 12/06/2016 for the next pump refill or sooner as necessary. DIAGNOSES: Cervical radiculopathy with post-cervical laminectomy syndrome and lumbar degenerative disk disease. PROCEDURE: Intrathecal pump refill and reprogramming and PTM reprogramming. MEDICATIONS: Include 2 mL of wasted old medication and 40 mL of new medication containing fentanyl, bupivacaine, and clonidine under sterile prep and drape using local anesthetic, topical. COMPLICATIONS: None. CONDITION AT DISCHARGE: Stable. The patient tolerated the procedure well, had no complications. CHITRA EPPERSON MD DR: TRAV/benito JOB#: [id number] / [id number]
== END | disposition home or self-care (01) ==
LOC: PNCL 10:50
PROVIDERS: ATTEND Anesthesiology
DX: M51.36 Other intervertebral disc degeneration, lumbar region (principal); M96.1 Postlaminectomy syndrome, not elsewhere classified; M54.12 Radiculopathy, cervical region; M17.0 Bilateral primary osteoarthritis of knee; M16.0 Bilateral primary osteoarthritis of hip; E78.00 Pure hypercholesterolemia, unspecified; J44.9 Chronic obstructive pulmonary disease, unspecified; F41.9 Anxiety disorder, unspecified; F32.9 Major depressive disorder, single episode, unspecified; E03.9 Hypothyroidism, unspecified; Z90.49 Acquired absence of other specified parts of digestive tract; Z90.710 Acquired absence of both cervix and uterus; Z87.442 Personal history of urinary calculi; Z88.1 Allergy status to other antibiotic agents; Z91.040 Latex allergy status; Z88.8 Allergy status to other drugs, medicaments and biological substances; Z91.048 Other nonmedicinal substance allergy status
CPT/HCPCS: 62370; 95991; J0735; J3010; J3490

== ENCOUNTER → 2016-10-25 | Outpatient (CLI) | payer MEDICARE, OTHER ==
[2016-03-18 16:49] VITALS: BP 135/85
[~2016-10-25] MED LIST changes: +BUPIVACAINE MPF 0.25% 10 ML VIAL. ONE; -BUPIVACAINE MPF 0.75% 30 ML VIAL. ONE; +IOHEXOL 180 MG/ML 10 ML VIAL. ONE; -cloNIDine PF 5,000 MCG/10 ML VIAL EP ONE; -fentaNYL PF VIAL 250 MCG/5 ML VIAL ONE; +methylPREDNISolone ACETATE 80 MG/ML VIAL. ONE
== END | disposition home or self-care (01) ==
LOC: PNCL 11:03
PROVIDERS: ATTEND Anesthesiology
DX: M17.11 Unilateral primary osteoarthritis, right knee (principal); Z86.69 Personal history of other diseases of the nervous system and sense organs; Z86.73 Personal history of transient ischemic attack (TIA), and cerebral infarction without residual deficits; E78.00 Pure hypercholesterolemia, unspecified; J44.9 Chronic obstructive pulmonary disease, unspecified; Z90.49 Acquired absence of other specified parts of digestive tract; E66.9 Obesity, unspecified; Z68.45 Body mass index [BMI] 70 or greater, adult; K21.9 Gastro-esophageal reflux disease without esophagitis; Z90.710 Acquired absence of both cervix and uterus; Z87.442 Personal history of urinary calculi; Z87.440 Personal history of urinary (tract) infections; M19.90 Unspecified osteoarthritis, unspecified site; E03.9 Hypothyroidism, unspecified; F41.9 Anxiety disorder, unspecified; F32.9 Major depressive disorder, single episode, unspecified; Z88.1 Allergy status to other antibiotic agents; Z91.040 Latex allergy status; Z91.048 Other nonmedicinal substance allergy status
CPT/HCPCS: 20610; J1040; J3490

== ENCOUNTER → 2016-11-21 | Outpatient (CLI) | payer MEDICARE, OTHER ==
[2016-03-18 16:49] VITALS: BP 135/85
[~2016-11-21] MED LIST changes: -BUPIVACAINE MPF 0.25% 10 ML VIAL. ONE; +CHOL2000 PO; -IOHEXOL 180 MG/ML 10 ML VIAL. ONE; -methylPREDNISolone ACETATE 80 MG/ML VIAL. ONE
[2016-11-21 09:16] LABS: BASO % 1 % (0-3); EOS % 2 % (0-3); HEMATOCRIT 36.3 % (36.0-47.0); HEMOGLOBIN 12.2 g/dL (12.0-15.5); LYMPH # 3.8 x10^3/uL (1.0-4.8); LYMPH % 51 % (24-48); MEAN CORPUSCULAR HEMOGLOBIN 28 pg (25-35); MEAN CORPUSCULAR HGB CONC 34 g/dL (31-37); MEAN CORPUSCULAR VOLUME 84 fL (79-100); MONO % 11 % (0-9); NEUT % 35 % (31-73); PLATELET COUNT 364 x10^3/uL (140-400); RED CELL DISTRIBUTION WIDTH 16.6 % (11.5-14.5); WHITE BLOOD COUNT 7.6 x10^3/uL (4.0-11.0)
[2016-11-21 09:38] LABS: PROTHROMBIN TIME PATIENT 12.7 SEC (11.7-14.0)
[2016-11-21 09:55] LABS: BILIRUBIN,URINE NEGATIVE (NEG); GLUCOSE,URINE NEGATIVE (NEG); NITRITE,URINE NEGATIVE (NEG); PROTEIN,URINE NEGATIVE (NEG-TRACE); UROBILINOGEN,URINE 0.2 mg/dL (0.2 mg/dL)
[2016-11-21 10:00] LABS: BACTERIA,URINE FEW /HPF (0-FEW); RBC,URINE OCC /HPF (0-2); SQUAMOUS EPITHELIAL CELL,UR MOD /LPF
--- NOTE | 2016-11-21 13:20 | EKG ---
[facility] [address] [place] [address] Test Date: 2016-11-21 Test Time: 13:17:53 Pat Name: RC MCMILLAN Department: Room: Gender: F Refractive Surgeon: RICHIE : 1945 Requested By: AIDAN ROMO Order Number: [id number] Reading MD: Measurements Intervals [place] Rate: 71 P: 35 MN: 146 QRS: -56 QRSD: 100 T: 32 QT: 446 QTc: 485 Interpretive Statements SINUS RHYTHM ABNORMAL LEFT AXIS DEVIATION R-S TRANSITION ZONE IN V LEADS DISPLACED TO THE LEFT LEFT ANTERIOR FASCICULAR BLOCK QRS(T) CONTOUR ABNORMALITY CONSIDER ANTEROSEPTAL MYOCARDIAL DAMAGE PROLONGED QT ABNORMAL ECG RI6.01 Compared to ECG 11/04/2015 14:43:51 Left-axis deviation now present Left anterior fascicular block now present Prolonged QT interval now present
--- NOTE | 2016-11-21 17:59 | RAD ---
Chest, 2 views, 11/21/2016: History: Preop evaluation for knee surgery Comparison is made to a study from 12/31/2014. Spinal stimulator leads extend into the upper thoracic spinal canal. The heart size and pulmonary vascularity are normal. There is calcific plaquing of the aorta. No pulmonary infiltrates are seen. There is no evidence of pleural fluid. IMPRESSION: No acute cardiopulmonary abnormality is detected.
== END | disposition home or self-care (01) ==
LOC: SURGPAT 15:34
PROVIDERS: ATTEND Orthopaedic Surgery Sports Medicine
DX: Z01.818 Encounter for other preprocedural examination (principal); I10 Essential (primary) hypertension
CPT/HCPCS: 36415; 71020; 81001; 85027; 85610; 85651; 85730; 87641; 93005

== ENCOUNTER → 2016-12-02 | Outpatient (CLI) | payer MEDICARE, OTHER ==
[2016-03-18 16:49] VITALS: BP 135/85
[~2016-12-02] MED LIST changes: +BUPIVACAINE MPF 0.75% 30 ML VIAL. ONE; -[UNRECOGNIZED DRUG - OTHER]; +[UNRECOGNIZED DRUG - OTHER] PO; +cloNIDine PF 5,000 MCG/10 ML VIAL EP ONE; +fentaNYL PF VIAL 250 MCG/5 ML VIAL ONE
--- NOTE | 2016-12-02 09:53 | PAIN ---
DATE OF SERVICE: 12/02/2016 PROGRESS NOTE FOR PAIN CLINIC DIAGNOSES: 1. Cervical radiculopathy with post-cervical laminectomy syndrome. 2. Bilateral knee joint pain with primary osteoarthritis of the knee joint. 3. Bilateral hip joint pain. 4. Lumbar degenerative disk disease. HISTORY OF PRESENT ILLNESS: The patient is a 71-year-old female who returns for followup status post both interventional techniques for her knees as well as medication management with intrathecal pump and oral medications. The patient also with spinal cord stimulator reports that with the combination of these she does very well, about a 70%-80% improvement in her pain in her knees as well as her back, neck, shoulders and upper extremities. The patient is having knee replacement on the right, coming up in about 3 days and she is quite excited to get this done, as she put off for many years. The patient reports she has been doing fairly well, has some burning and stabbing pain in the base of the neck, but is very tolerable. Her PTM settings on her intrathecal pump worked very well for her and she can ____ the pain pretty well. The patient reports no new motor or sensory deficits, no new bowel or bladder incontinence. No side effects with the medication. The patient reports she has been sleeping fairly well at night about 6 hours ____ she can reposition or get out of bed and reposition again and get back to sleep. PHYSICAL EXAMINATION: VITAL SIGNS: Today, the patient's blood pressure 132/93, pulse 79, respirations 18, temperature 97.9 degrees Fahrenheit. Height is 5 feet 1 inch, weight is 206 pounds. GENERAL: The patient is awake, alert, oriented, appropriate, very pleasant demeanor. HEENT: Head shows normocephalic, atraumatic. Extraocular movements are intact, symmetrical. Oral cavity, mucous membranes are moist and pink. The patient wears eye glasses. NECK: Shows anterior throat supple without palpable lymphadenopathy noted. Swallow reflex is symmetrical. CHEST: Shows normal with inspection. Breath sounds clear to auscultation bilaterally. HEART: Shows S1 and S2 clear. No murmurs auscultated. ABDOMEN: Soft, nontender, nondistended. The patient has a ventral hernia in the upper left quadrant which is palpable and more noticeable with Valsalva maneuver, but nontender, easily palpable intrathecal pump is noted in the left lower quadrant. No rebound or guarding demonstrated. BACK: The patient's back shows spine grossly in the midline. Slight exaggeration of thoracic kyphosis and some flattening of lumbar lordotic curvature as well as some flattening cervical lordotic curvature. The patient has surgical scars that are noted once again. Cervical paraspinous musculature shows some moderate tenderness to palpation, but only diffusely and only to moderate extend in the low cervical paraspinous musculature as well as the superior medial trapezius, but is symmetrical. The patient shows good rotational motion both laterally as well as extension and flexion of the cervical spine without significant difficulty. EXTREMITIES: Upper extremities show deep tendon reflexes at 2+ in the biceps and triceps tendons. Motor exam is strong with approximately 4 on a scale of 5 with military source operations specialist strength intact and symmetrical. Peripheral pulses are 2+ radial distribution. Options were discussed with the patient and the patient's old chart was reviewed as her current medication regimen updated. Current review of systems updated today as well and we will proceed with Intrathecal pump refill and reprogramming as well as PTM reprogramming. Risks were discussed including but not limited to bleeding, infection, possibility of extravasation of medication and resuscitative measures if necessary as well as poor results regarding pain control. The patient understands and wishes to proceed. The patient will have refill date of 01/31/2017 and we will have her return prior to this. Also, the patient was counseled as to activity level and her upcoming surgery, to follow the rehab instructions with this course. She will maintain her medication regimen with the pump while an inpatient. We will also recommend some medication for breakthrough when the surgery date arises. The patient will follow up as scheduled. DIAGNOSES: 1. Post-cervical laminectomy syndrome with cervical radiculopathy. 2. Bilateral knee joint pain with primary osteoarthritis of the bilateral knee. PROCEDURES: Intrathecal pump refill and reprogramming, under sterile prep and drape using local topical anesthesia, with 22-gauge noncutting [employer] Medical[employer] needle, pump was entered without difficulty, aspirated 4 mL of the old medication which was discarded and 40 mL of the new medication was then replaced after intermittent aspiration. Needle was withdrawn. Sterile bandage was applied. Pump was reprogrammed as was the PTM reprogrammed for settings. The patient's medications 40 mL included bupivacaine, fentanyl and clonidine as documented. CONDITION AT DISCHARGE: Stable. The patient tolerated the procedure and had no complications. CHITRA EPPERSON MD DR: Jas JOB#: [id number] / [id number]
== END | disposition home or self-care (01) ==
LOC: PNCL 08:07
PROVIDERS: ATTEND Anesthesiology
DX: M54.12 Radiculopathy, cervical region (principal); M51.36 Other intervertebral disc degeneration, lumbar region; M16.0 Bilateral primary osteoarthritis of hip
CPT/HCPCS: 95991; J0735; J3010; J3490

== ENCOUNTER 2016-12-05 06:02 | Inpatient (IN) | payer MEDICARE, OTHER ==
[~2016-12-05] VITALS: Ht 154.9 cm; Wt 93.4 kg
[2016-12-05] VITALS (12 sets, daily range): BP systolic 113–146; BP diastolic 67–100
[~2016-12-05 06:02] MED LIST changes: -BUPIVACAINE MPF 0.75% 30 ML VIAL. ONE; +HYDROcodone/APAP 7.5/325MG 1 TAB TABLET PO PRN; +MELOXICAM 7.5 MG TABLET PO PRN; +MORPHINE SULFATE 5 MG, KETOROLAC TROMETHAMINE 30 MG, ROPIVacaine 0.5% PF 60 ML, EPINEPH... INT ART ONE; -cloNIDine PF 5,000 MCG/10 ML VIAL EP ONE; -fentaNYL PF VIAL 250 MCG/5 ML VIAL ONE
[2016-12-05] MEDS ORDERED: ONDANSETRON PF 4 MG/2 ML VIAL. IV PRN (07:00)
[2016-12-05] MEDS ORDERED: IV RINGERS,LACTATED 1000ML 1,000 ML IV SCH (07:00)
[2016-12-05] MEDS ORDERED: LIDOCAINE 1% 1 ML SYRINGE. ID PRN (07:00)
[2016-12-05] MEDS ORDERED: fentaNYL PF VIAL 100 MCG/2 ML VIAL IV PRN ×2 (07:00→07:15)
[2016-12-05] MEDS ORDERED: LIDOCAINE 2% PF Vial for OR 5 ML VIAL. ONE (07:04)
[2016-12-05] MEDS ORDERED: PROPOFOL 20 ML IV ONE (07:04)
[2016-12-05] MEDS ORDERED: fentaNYL PF VIAL 100 MCG/2 ML VIAL ONE ×4 (07:04→10:33)
[2016-12-05] MEDS ORDERED: DEXAMETHASONE SOD PHOS 20 MG/5 ML VIAL. ONE (07:04)
[2016-12-05] MEDS ORDERED: MIDAZOLAM HCL/PF 2 MG/2 ML VIAL. ONE (07:04)
[2016-12-05] MEDS ORDERED: ONDANSETRON PF 4 MG/2 ML VIAL. ONE (07:04)
[2016-12-05] MEDS ORDERED: ROCURONIUM 100 MG/10 ML VIAL. ONE (07:04)
[2016-12-05] MEDS ORDERED: ZOLPIDEM 5 MG TABLET. PO PRN (07:15)
[2016-12-05] MEDS ORDERED: 0.9 % SODIUM CHLORIDE 10 ML DISP.SYRIN. IV PRN (07:15)
[2016-12-05] MEDS ORDERED: diphenhydrAMINE 50 MG/ML VIAL IV PRN (07:15)
[2016-12-05] MEDS ORDERED: ACETAMINOPHEN 325 MG TABLET. PO PRN (07:15)
[2016-12-05] MEDS ORDERED: METOCLOPRAMIDE HCL 10 MG/2 ML VIAL. IV PRN (07:15)
[2016-12-05] MEDS ORDERED: traMADol 50 MG TABLET PO PRN ×2 (07:15)
[2016-12-05] MEDS ORDERED: DEXTROSE 50% 25 GM / 50ML DISP.SYRIN. IV PRN (07:15)
[2016-12-05] MEDS ORDERED: MORPHINE SULFATE 10 MG/ML VIAL. IV PRN (07:15)
[2016-12-05] MEDS ORDERED: MORPHINE SULFATE 4 MG/ML DISP.SYRIN. IV PRN ×4 (07:15→11:00)
[2016-12-05] MEDS ORDERED: ONDANSETRON ODT 4 MG TAB.RAPDIS. PO PRN (07:30)
[2016-12-05] MEDS ORDERED: ALPRAZolam 0.5 MG TABLET PO PRN (07:30)
--- NOTE | 2016-12-05 07:46 | PDOC4 ---
Operative Note Operative Note Date of surgery: 12/05/2016 Surgeon: Blane Romo MD Preoperative diagnosis: Advanced right knee degenerative joint disease Postoperative diagnosis: Same Procedure performed: Right total knee arthroplasty Components inserted: [employer] cobalt chrome size 4 journey 2 femoral component, size 2 tibial component, 9 mm thick polyethylene articular insert, 23 mm biconvex patella Blood loss: 100 mL Tourniquet time: 49 minutes Anesthesia Gen. plus local Black Powder Glazing Operator: Norma Rush Reason for procedure: Patient is a very pleasant 71-year-old female with severe and progressive right knee pain that has failed conservative therapy such as a rehabilitation program, anti-inflammatories, and intra-articular injections. Because of progressive pain and interference with her activities of daily living we had a discussion of the risks, benefits, and alternatives to the above procedure and she wished to proceed. Description of procedure: Patient was greeted in the preoperative area by myself for the correct extremity was marked and verified. She was taken back to the operative suite and her antibiotics were started and row. Once in the operating room, she was transferred gently supine to the OR table and secured to the bed with all pressure points padded. After successful induction of a general anesthetic, we placed a nonsterile tourniquet in place to her right upper thigh. A padded bump was used laterally at her hip and we attached the footplate reddy for our Ojeda positioning device to the foot of the bed. After this, we proceeded to prep and drape in her usual sterile fashion including an Ioban [place]. I then palpated and marked her surface anatomy and marky a line from a standard anterior midline skin incision. With the extremity was exsanguinated with an Esmarch and tourniquet was insufflated to 250 mmHg. I then made my skin incision and dissected subcutaneous tissue with electrocautery until identified the extensor mechanism including quadriceps tendon, medial border of the patella and patellar tendon. I then made my standard medial parapatellar arthrotomy. I then bluntly dissected the fat pad off of the posterior patellar tendon and protected this with a retractor and excised the fat pad. I then performed my medial release with a combination of Leiva elevator and electrocautery. After this, her knee was flexed and the cruciates were excised. I then placed my Z retractors and pinned into position my distal femoral cutting guide. I then made my distal femoral cut. I then impacted my distal femoral 5 in 1 cutting guide into his edition and secured with threaded pins and then made these respective cuts. The bone ends were delivered from the operative field. I palpated at the posterior condyles to make sure I removed all osteophytes. After this, we directed our attention to the tibia and further flexed the knee and repositioned our Z retractors as well as our were pickle fork retractor. I then used the extramedullary tibial cutting guide and made my proximal tibial cut and delivered this remnant from the operative field was circumferentially electrocautery. We then brought her leg onto extension and I used a spacer block and drop griffin to confirm good alignment. After this we reflexed the knee and repositioned our retractors. I then sized for my tibial component and provisionally pinned it into position. I then drilled and punched for this. I then directed my attention to our femur and placed my trial femoral component and then reamed and punched for the cam. The trial cam was placed. We then trialed polyethylene sizes. The 9 mm thick trial polyethylene gave her excellent range of motion and stability After selecting our components I directed my attention to the patella and used the inset patellar guide and selected my size and then reamed for this. A trial patellar button was then inserted she had excellent tracking, stability, and range of motion. After this, all trial components were removed and all bony surfaces were thoroughly irrigated. We then proceeded to cement in place for tibial component followed by a femoral component. I took care to remove excess cement. We then placed a trial polyethylene insert and the cement was allowed to polymerize with the leg in extension. I then secured my patellar polyethylene button in place and held with a clamp. While the cement was polymerizing, I injected my periarticular mixture. After the cement hardened I tested range of motion and stability again and felt the above size polyethylene articular insert was most appropriate. I removed the trial polyethylene and irrigated everything out again. The tourniquet was let down and bleeders were cauterized. I then inserted my polyethylene articular insert and reduced the knee. I then close the arthrotomy with simple interrupted #1 Vicryl, with the exception of a [id number] proximally. I tested arthrotomy closure in flexion and noted no extravasation of blood. Her subcutaneous tissue was closed with inverted interrupted 2-0 Vicryl. Running 4-0 Monocryl in a subcuticular fashion was used for skin. Prior to comp she wound closure all culture report is correct 2. She tolerated surgery well. Conclusion of this procedure, her leg was cleansed and dried and a sterile dressing was applied. She was then awakened from anesthesia and transferred gently supine to a hospital bed and taken to the PACU in a stable and extubated condition. Postoperative plan is to admit her to the joint center where she will receive antibiotic and DVT prophylaxis. She'll receive IV pain medicine and begin her rehabilitation as well. BLANE ROMO II, MD Dec 05, 2016 07:46
[2016-12-05] MEDS ORDERED: SEVOFLURANE 61 TO 120 MINUTES. IH ONE (08:29)
[2016-12-05] MEDS ORDERED: NEOSTIGMINE 10 MG/10 ML VIAL. ONE (09:04)
[2016-12-05] MEDS ORDERED: GLYCOPYRROLATE 1 MG/5 ML VIAL. ONE (09:04)
[2016-12-05] MEDS: fentaNYL PF VIAL 100 MCG/2 ML VIAL IV PRN ×8 (10:16→20:04)
[2016-12-05] MEDS ORDERED: MORPHINE SULFATE 2 MG/ML DISP.SYRIN. ONE (10:53)
--- NOTE | 2016-12-05 11:12 | RAD ---
AP and lateral right knee radiographs 12/05/2016 Clinical history: Post right knee replacement. Portable AP and lateral digital radiographs of the right knee were obtained. The patient is status post right TKA. The prosthetic components are intact. No fracture or dislocation is seen. Impression: Status post right TKA.
[2016-12-05] MEDS: IV DEXTROSE 5 %-0.45 % NACL 1,000 ML IV SCH ×2 (11:55→15:00)
[2016-12-05] MEDS: CALCIUM CARBONATE 500 MG TAB.CHEW PO PRN (12:25)
[2016-12-05] MEDS: CYCLOBENZAPRINE 10 MG TABLET. PO SCH ×3 (14:00→21:12)
[2016-12-05] MEDS: GABAPENTIN 300 MG CAPSULE. PO SCH ×3 (14:00→21:12)
[2016-12-05] MEDS ORDERED: WARFARIN 7.5 MG TABLET. PO ONE (16:00)
[2016-12-05] MEDS: FERROUS SULFATE 325 MG TABLET. PO SCH (17:20)
[2016-12-05] MEDS: SIMVASTATIN 20 MG TABLET PO SCH (21:11)
[2016-12-05] MEDS: CELECOXIB 200 MG CAPSULE. PO SCH (21:11)
[2016-12-05] MEDS: risperiDONE 0.25 MG TABLET. PO SCH (21:12)
[2016-12-05] MEDS: ZOLPIDEM 5 MG TABLET. PO SCH (21:12)
--- NOTE | 2016-12-06 01:35 | ACF ---
Admission Forms Criteria PAIN MANAGEMENT [facility] Clinical Indications for Admission to Inpatient Care (Place 'X' for any and all applicable criteria): Hospital admission is needed for appropriate care of the patient because of 1 or more of the following are present (1)(2)(3)(4)(5): [ ]I. Severe pain requiring acute inpatient management as indicated by 1 or more of the following (2)(5)(10): [ ]a) Continuous or frequent (eg, every 2 to 4 hours) parenteral analgesics required [A] [ ]b) Necessity (ie, alternative approaches not effective) for analgesic regimen that can only be performed or initiated in inpatient setting [X]II. Pain causing debilitation to the point of inability to function or be supported at any other level of care [ ]III. Severe side effects from pain medications as indicated by ANY ONE of the following (12)(13)(14)(15): [ ]a) Uncontrollable seizures [ ]b) Cardiac arrhythmias of immediate concern [ ]c) Dehydration that is severe or persistent [ ]d) Vomiting that is severe or persistent [ ]e) Altered mental status that is severe or persistent [ ]f) Obstipation with inadequate GI function to maintain nutrition The original [employer] content created by [employer] has been revised. The portions of the content which have been revised are identified through the use of italic text or in bold, and [facility] [employer] [facility] has neither reviewed nor approved the modified material. All other unmodified content is copyright [employer]. Please see references footnoted in the original [employer] [facility] [employer] edition 2016 Admission Criteria Met?: Yes KAJAL GUTIERREZ Dec 06, 2016 01:35 AIDAN ROMO II, MD Dec 06, 2016 14:42
[2016-12-06] MEDS: fentaNYL PF VIAL 100 MCG/2 ML VIAL IV PRN ×2 (01:52→05:42)
[2016-12-06 03:00] VITALS: BP 121/71
[2016-12-06 04:22] LABS: HEMATOCRIT 32.5 % (36.0-47.0); HEMOGLOBIN 10.5 g/dL (12.0-15.5)
[2016-12-06 05:10] LABS: INR 1.2 (0.8-1.1); PROTHROMBIN TIME PATIENT 14.7 SEC (11.7-14.0)
[2016-12-06] MEDS: LEVOTHYROXINE 50 MCG TABLET PO SCH (05:41)
[2016-12-06] MEDS ORDERED: MAGNESIUM HYDROXIDE 2,400 MG/30 ML ORAL.SUSP. PO PRN (06:00)
[2016-12-06 07:14] VITALS: BP 142/77
[2016-12-06] MEDS: CALCIUM CARBONATE 500 MG TAB.CHEW PO PRN (07:32)
[2016-12-06] MEDS: PANTOPRAZOLE 40 MG TABLET.DR. PO SCH (07:32)
[2016-12-06] MEDS: HYDROcodone/APAP 7.5/325MG 1 TAB TABLET PO PRN (07:32)
[2016-12-06] MEDS: ASPIRIN 325 MG TABLET PO SCH (07:42)
[2016-12-06] MEDS: GABAPENTIN 300 MG CAPSULE. PO SCH ×3 (07:42→20:52)
[2016-12-06] MEDS: MULTIVITAMIN with MINERAL TABLET. PO SCH (07:42)
[2016-12-06] MEDS: CELECOXIB 200 MG CAPSULE. PO SCH ×2 (07:42→20:52)
[2016-12-06] MEDS: buPROPion XL 150 MG TAB.ER.24H. PO SCH (07:42)
[2016-12-06] MEDS: FERROUS SULFATE 325 MG TABLET. PO SCH ×2 (07:42→16:21)
[2016-12-06] MEDS: SENNOSIDES/DOCUSATE 8.6/50MG TABLET. PO SCH (07:42)
[2016-12-06] MEDS: CYCLOBENZAPRINE 10 MG TABLET. PO SCH ×3 (07:55→20:52)
[2016-12-06 09:37] LABS: BILIRUBIN,URINE NEGATIVE (NEG); GLUCOSE,URINE 100 mg/dL (NEG); NITRITE,URINE NEGATIVE (NEG); PROTEIN,URINE NEGATIVE (NEG-TRACE); UROBILINOGEN,URINE 0.2 mg/dL (0.2 mg/dL)
[2016-12-06 09:45] LABS: SQUAMOUS EPITHELIAL CELL,UR FEW /LPF; WBC,URINE TNTC /HPF (0-4)
[2016-12-06 09:46] LABS: BACTERIA,URINE FEW /HPF (0-FEW); RBC,URINE OCC /HPF (0-2)
--- NOTE | 2016-12-06 10:13 | PDOC ---
ORTHO PROGRESS NOTES Subjective Hayley tells me that her right knee is quite sore today. She does relate the pain meds are helping her quite a bit though. She denies any bowel complaints or breathing difficulty. Does feel like she is getting a urinary tract infection. She has had these frequently in the past Vitals Vital Signs Date Time Temp Pulse Resp B/P (MAP) Pulse Ox O2 Delivery O2 Flow Rate FiO2 12/06/16 08:11 Room Air 12/06/16 07:32 95 12/06/16 07:14 99.0 78 142/77 (98) 99.0 12/06/16 03:00 18 12/05/16 18:35 3.0 Labs Laboratory Tests Test 12/05/16 06:45 12/06/16 04:13 12/06/16 09:00 Prothrombin Time 13.0 SEC (11.7-14.0) 14.7 SEC (11.7-14.0) Prothromb Time International Ratio 1.0 (0.8-1.1) 1.2 (0.8-1.1) Activated Partial Thromboplast Time 27 SEC (24-38) Hemoglobin 10.5 g/dL (12.0-15.5) Hematocrit 32.5 % (36.0-47.0) Mean Corpuscular Hemoglobin Concent 32 g/dL (31-37) Urine Collection Type Unknown Urine Color Yellow Urine Clarity Clear Urine pH 6.0 Urine Specific [place] 1.020 Urine Protein Negative mg/dL (NEG-TRACE) Urine Glucose (UA) 100 mg/dL (NEG) Urine Ketones (Stick) Negative mg/dL (NEG) Urine Blood Negative (NEG) Urine Nitrite Negative (NEG) Urine Bilirubin Negative (NEG) Urine Urobilinogen Dipstick 0.2 mg/dL (0.2 mg/dL) Urine Leukocyte Esterase Large (NEG) Urine RBC Occ /HPF (0-2) Urine WBC Tntc /HPF (0-4) Urine Squamous Epithelial Cells Few /LPF Urine Bacteria Few /HPF (0-FEW) Urine Mucus Mod /LPF Laboratory Tests Test 12/06/16 04:13 12/06/16 09:00 Hemoglobin 10.5 g/dL (12.0-15.5) Hematocrit 32.5 % (36.0-47.0) Mean Corpuscular Hemoglobin Concent 32 g/dL (31-37) Prothrombin Time 14.7 SEC (11.7-14.0) Prothromb Time International Ratio 1.2 (0.8-1.1) Urine Collection Type Unknown Urine Color Yellow Urine Clarity Clear Urine pH 6.0 Urine Specific [place] 1.020 Urine Protein Negative mg/dL (NEG-TRACE) Urine Glucose (UA) 100 mg/dL (NEG) Urine Ketones (Stick) Negative mg/dL (NEG) Urine Blood Negative (NEG) Urine Nitrite Negative (NEG) Urine Bilirubin Negative (NEG) Urine Urobilinogen Dipstick 0.2 mg/dL (0.2 mg/dL) Urine Leukocyte Esterase Large (NEG) Urine RBC Occ /HPF (0-2) Urine WBC Tntc /HPF (0-4) Urine Squamous Epithelial Cells Few /LPF Urine Bacteria Few /HPF (0-FEW) Urine Mucus Mod /LPF Notes On examination, she is awake and alert and sitting in chair. Her right lower extremity is neurovascularly intact. Dressing has some bloody drainage around but looks okay. Assessment and Plan We will send off a urinalysis. Given her frequency with these in the past we will start her on some Cipro right now. AIDAN ROMO II, MD Dec 06, 2016 10:13
[2016-12-06] MEDS: HYDROcodone/APAP 10/325 1 TAB TABLET PO PRN ×3 (11:14→19:29)
[2016-12-06] MEDS ORDERED: BISACODYL 10 MG SUPP.RECT. PR PRN (16:00)
[2016-12-06] MEDS ORDERED: WARFARIN 5 MG TABLET. PO ONE (16:00)
[2016-12-06] MEDS: DOMPERIDONE 10 MG PO SCH (16:22)
[2016-12-06 18:31] VITALS: BP 142/79
[2016-12-06] MEDS: ZOLPIDEM 5 MG TABLET. PO SCH (20:52)
[2016-12-06] MEDS: SIMVASTATIN 20 MG TABLET PO SCH (20:52)
[2016-12-06] MEDS: risperiDONE 0.25 MG TABLET. PO SCH (20:52)
[2016-12-06] MEDS ORDERED: CIPROFLOXACIN HCL 250 MG TABLET. PO SCH (21:00)
[2016-12-07] MEDS: HYDROcodone/APAP 10/325 1 TAB TABLET PO PRN ×6 (00:36→20:46)
[2016-12-07 04:55] LABS: HEMATOCRIT 31.2 % (36.0-47.0)
[2016-12-07 05:19] LABS: INR 1.5 (0.8-1.1); PROTHROMBIN TIME PATIENT 17.5 SEC (11.7-14.0)
[2016-12-07] MEDS: PANTOPRAZOLE 40 MG TABLET.DR. PO SCH (05:48)
[2016-12-07] MEDS: LEVOTHYROXINE 50 MCG TABLET PO SCH (05:49)
[2016-12-07 06:21] VITALS: BP 110/69
[2016-12-07] MEDS: buPROPion XL 150 MG TAB.ER.24H. PO SCH (08:41)
[2016-12-07] MEDS: FERROUS SULFATE 325 MG TABLET. PO SCH ×2 (08:41→17:12)
[2016-12-07] MEDS: ASPIRIN 325 MG TABLET PO SCH (08:41)
[2016-12-07] MEDS: GABAPENTIN 300 MG CAPSULE. PO SCH ×3 (08:42→20:45)
[2016-12-07] MEDS: CELECOXIB 200 MG CAPSULE. PO SCH ×2 (08:42→20:46)
[2016-12-07] MEDS: CYCLOBENZAPRINE 10 MG TABLET. PO SCH ×3 (08:42→20:46)
[2016-12-07] MEDS: MULTIVITAMIN with MINERAL TABLET. PO SCH (08:42)
[2016-12-07] MEDS: SENNOSIDES/DOCUSATE 8.6/50MG TABLET. PO SCH (08:42)
[2016-12-07] MEDS: DOMPERIDONE 10 MG PO SCH ×3 (08:42→17:14)
[2016-12-07] MEDS ORDERED: WARFARIN 4 MG TABLET. PO ONE (16:00)
--- NOTE | 2016-12-07 16:58 | PATHOLOGY ---
PATHOLOGY REPORT * * * * * * * * FINAL DIAGNOSIS: Segments of bone and soft tissue, right total knee arthroplasty: - Degenerative arthritis. (JPM:db; 12/07/2016) REPORT ELECTRONICALLY SIGNED BY: Edwin Virgen M.D. DATE/TIME: 12/07/2016 16:57 * * * * * * * * GROSS PATHOLOGY: The specimen is received in formalin, labeled "Charisse-right knee bone and tissue" is a 78 g, 10.5 x 9.5 x 2.7 cm aggregate of yellowish-white irregular hard fragments of bone and attached yellow lobular adipose tissue and melo-brown membranous tissue. The articular surfaces of the specimens are white-melo with focal areas of eburnation. Sectioning through the specimens reveal yellow-melo hard trabeculated cut surfaces and articular surfaces ranging in thickness from 0.1 up to 0.3 cm. Rotary Helper sections of the specimen are submitted in cassette A1 following decalcification. (AKA; 12/06/2016) INITIAL CPT CODE(S): A; 58282, 04478 Professional services performed [place] [facility] [place] [address] Technical services performed by [facility] at [address] [place] [address]. SPECIMEN(S) RECEIVED: A.Right knee bone and tissue CLINICAL HISTORY: DJD PATIENT: RC MCMILLAN /AGE: 3 1945 (Age: 71) PATIENT #: [id number] ALT CASE #: SPECIMEN COLLECTION DATE: 12/05/2016 SPECIMEN RECEIVED DATE: 12/05/2016 [facility] - [address] [place] [address] - PHONE: [phone] * * * END OF REPORT * * *
[2016-12-07 18:42] VITALS: BP 126/71
[2016-12-07] MEDS: risperiDONE 0.25 MG TABLET. PO SCH (20:45)
[2016-12-07] MEDS: ZOLPIDEM 5 MG TABLET. PO SCH (20:46)
[2016-12-07] MEDS: SIMVASTATIN 20 MG TABLET PO SCH (20:46)
[2016-12-08] MEDS: HYDROcodone/APAP 10/325 1 TAB TABLET PO PRN ×2 (03:14→09:02)
[2016-12-08 05:45] VITALS: BP 106/61
[2016-12-08 05:49] LABS: HEMOGLOBIN 9.5 g/dL (12.0-15.5)
[2016-12-08 06:07] LABS: INR 1.5 (0.8-1.1)
[2016-12-08] MEDS: LEVOTHYROXINE 50 MCG TABLET PO SCH (06:22)
[2016-12-08] MEDS: PANTOPRAZOLE 40 MG TABLET.DR. PO SCH (06:22)
[2016-12-08] MEDS: DOMPERIDONE 10 MG PO SCH ×2 (07:20→11:43)
--- NOTE | 2016-12-08 08:24 | DISCH ---
DISCHARGE INSTRUCTIONS Condition on Discharge Condition on Discharge: Stable Activity After Discharge Activity Instructions for Disc: No restrictions Bathing Instructions: Shower-keep dressing dry Weight Bearing Status after Di: As tolerated Diet after Discharge Diet after Discharge: Regular Wound Incision Care Wound/Incision Care: Ice to area for comfort, Keep wound/cast CDI, Do not change dressing Contacting the DRKosta after DC Call your doctor for: Concerns you may have Follow-Up Follow up with: Louie in 2wks AIDAN ROMO II, MD Dec 08, 2016 08:24
--- NOTE | 2016-12-08 08:28 | PDOC ---
ORTHO PROGRESS NOTES Subjective Pain controlled. UTI improving Vitals Vital Signs Date Time Temp Pulse Resp B/P (MAP) Pulse Ox O2 Delivery O2 Flow Rate FiO2 12/08/16 05:45 98.8 71 16 106/61 (76) 93 BiPAP/CPAP 2.0 98.8 Labs Laboratory Tests Test 12/06/16 09:00 12/07/16 04:10 12/08/16 05:25 Urine Collection Type Unknown Urine Color Yellow Urine Clarity Clear Urine pH 6.0 Urine Specific [place] 1.020 Urine Protein Negative mg/dL (NEG-TRACE) Urine Glucose (UA) 100 mg/dL (NEG) Urine Ketones (Stick) Negative mg/dL (NEG) Urine Blood Negative (NEG) Urine Nitrite Negative (NEG) Urine Bilirubin Negative (NEG) Urine Urobilinogen Dipstick 0.2 mg/dL (0.2 mg/dL) Urine Leukocyte Esterase Large (NEG) Urine RBC Occ /HPF (0-2) Urine WBC Tntc /HPF (0-4) Urine Squamous Epithelial Cells Few /LPF Urine Bacteria Few /HPF (0-FEW) Urine Mucus Mod /LPF Hemoglobin 10.0 g/dL (12.0-15.5) 9.5 g/dL (12.0-15.5) Hematocrit 31.2 % (36.0-47.0) 28.0 % (36.0-47.0) Mean Corpuscular Hemoglobin Concent 32 g/dL (31-37) 34 g/dL (31-37) Prothrombin Time 17.5 SEC (11.7-14.0) 17.0 SEC (11.7-14.0) Prothromb Time International Ratio 1.5 (0.8-1.1) 1.5 (0.8-1.1) Laboratory Tests Test 12/08/16 05:25 Hemoglobin 9.5 g/dL (12.0-15.5) Hematocrit 28.0 % (36.0-47.0) Mean Corpuscular Hemoglobin Concent 34 g/dL (31-37) Prothrombin Time 17.0 SEC (11.7-14.0) Prothromb Time International Ratio 1.5 (0.8-1.1) X-Rays UA/UC reviewed Notes A and A in chair VAC in place and working remains NVI RLE Assessment and Plan to HCR today f/u 2 wks ABERLE,AIDAN S II MD Dec 08, 2016 08:28
[2016-12-08] MEDS: ASPIRIN 325 MG TABLET PO SCH (09:01)
[2016-12-08] MEDS: FERROUS SULFATE 325 MG TABLET. PO SCH (09:01)
[2016-12-08] MEDS: CELECOXIB 200 MG CAPSULE. PO SCH (09:01)
[2016-12-08] MEDS: MULTIVITAMIN with MINERAL TABLET. PO SCH (09:02)
[2016-12-08] MEDS: CYCLOBENZAPRINE 10 MG TABLET. PO SCH ×2 (09:02→14:36)
[2016-12-08] MEDS: buPROPion XL 150 MG TAB.ER.24H. PO SCH (09:02)
[2016-12-08] MEDS: GABAPENTIN 300 MG CAPSULE. PO SCH ×2 (09:02→14:36)
[2016-12-08] MEDS: SENNOSIDES/DOCUSATE 8.6/50MG TABLET. PO SCH (09:02)
[2016-12-08] MEDS: HYDROcodone/APAP 7.5/325MG 1 TAB TABLET PO PRN ×2 (11:46→16:36)
[2016-12-08] MEDS ORDERED: WARFARIN 5 MG TABLET. PO ONE (14:00)
[2016-12-08 14:57] VITALS: BP 120/69
--- NOTE | 2016-12-09 09:53 | HP ---
ADMIT DATE: 12/05/2016 CHIEF COMPLAINT: Right knee pain. HISTORY OF PRESENT ILLNESS: The patient has medial and anterior right knee pain, worse with walking on stairs. The pain does radiate distally a little bit. It does well occasionally. She does feel like out. Her pain has been progressive. She has tried and failed conservative therapy such as anti-inflammatories, exercises program and intraarticular injections. We discussed proceeding with total knee replacement and she elected to proceed. REVIEW OF SYSTEMS: Twelve point review of systems negative except as per HPI. PAST MEDICAL HISTORY: Hyperlipidemia, arthritis, GERD, gastroparesis, hypothyroidism, depression, anxiety, migraines. PAST SURGICAL HISTORY: , inguinal herniorrhaphy, , bunionectomy, hysterectomy, cholecystectomy, breast biopsy, spinal fusion, umbilical hernia repair, lumpectomies, spinal cord stimulator, gastric surgery. FAMILY HISTORY: Cardiac issue. SOCIAL HISTORY: No tobacco, no alcohol. MEDICATIONS: Synthroid, Wellbutrin, Zocor, domperidone, omeprazole, alprazolam, Risperdal, Fioricet, Ambien, Zofran, Lortab, aspirin, Flexeril, Mobic, clonidine. ALLERGIES: COMPAZINE, CIPRO, CLINDAMYCIN AND ADHESIVE TAPE. PHYSICAL EXAMINATION: GENERAL: The patient is alert and oriented. No acute distress. HEENT: Normocephalic, atraumatic. Extraocular muscles are intact. CARDIOVASCULAR: Regular rate and rhythm. Dorsalis pedis 2+ and symmetric. LUNGS: Respirations are unlabored with symmetric chest. ABDOMEN: Soft, nondistended. EXTREMITIES: Examination of right lower extremity reveals knee is stable to varus and valgus. Mild effusion present today. Overlying skin is intact. IMAGING: X-rays are reviewed. IMPRESSION: Primary right degenerative joint disease of her knee. PLAN: We will plan on proceeding with total knee arthroplasty as we did discuss in our outpatient note. AIDAN ROMO MD DR: ADDY/benito JOB#: [id number] / [id number]
== END 2016-12-08 16:44 | DRG 470 ==
LOC: OPSVCIP 06:02 → 4 SOUTHEST 12:00
PROVIDERS: ADMIT Orthopaedic Surgery Sports Medicine; ATTEND Orthopaedic Surgery Sports Medicine
PROC: 0SRC0J9 Replacement of Right Knee Joint with Synthetic Substitute, Cemented, Open Approach (ICD-10-PCS; principal; 2016-12-05 07:30)
DX: M17.11 Unilateral primary osteoarthritis, right knee (principal); N39.0 Urinary tract infection, site not specified; E03.9 Hypothyroidism, unspecified; E78.5 Hyperlipidemia, unspecified; K21.9 Gastro-esophageal reflux disease without esophagitis; K31.84 Gastroparesis
CPT/HCPCS: 36415; 73560; 81001; 85014; 85018; 85610; 85730; 86850; 86900; 86901; 87086; 88304; 88311; J0171; J0690; J1100; J1885; J2001; J2250; J2270; J2405; J2704; J2710; J2795; J3010; J3490; J7030; J7120; Q0162; 97110; 97116; 97150; 97530; 97535; C1769

== ENCOUNTER 2016-12-20 17:46 | Inpatient (IN) | payer MEDICARE ==
[~2016-12-20] VITALS: Ht 154.9 cm; Wt 97.1 kg
[~2016-12-20 17:46] MED LIST changes: -HYDROcodone/APAP 7.5/325MG 1 TAB TABLET PO PRN; -MELOXICAM 7.5 MG TABLET PO PRN; -MORPHINE SULFATE 5 MG, KETOROLAC TROMETHAMINE 30 MG, ROPIVacaine 0.5% PF 60 ML, EPINEPH... INT ART ONE
[2016-12-20] MEDS ORDERED: IV NORMAL SALINE 1000ML BAG 1,000 ML IV SCH (18:18)
--- NOTE | 2016-12-20 18:22 | PHYS DOC ---
Past Medical History Past Medical History: Anxiety, Arthritis, Depression, Diverticulitis, GERD, Hypothyroid, TIA Additional Past Medical Histor: CHRONIC PAIN, GASTROPARESIS, MIGRAINES, pre DM Past Surgical History: Cholecystectomy, , Tonsillectomy Additional Past Surgical Histo: HERNIA, BUNIONECTOMY BILAT FEET, FUNDOLICATION , SPINAL CORD STIMULATOR, Alcohol Use: None Drug Use: None Adult General Chief Complaint Chief Complaint: NAUSEA/VOMITING/DIARRHA HPI HPI Patient is a 71 year old female who presents with complaint of abdominal pain and vomiting. Patient's symptoms started early this afternoon after eating lunch. The patient has had several episodes of vomiting. The appearance of the vomitus was undigested food at first, however the last couple episodes have been red tinged according to the patient's . Patient also has been passing dark stools over the last couple days. Patient states that she is having pain all throughout her abdomen currently. Patient rates her pain as 9 out of 10. [facility] no [facility] in symptoms. The [facility] after recently having right total knee arthroplasty surgery 2 weeks ago. Patient has had history of abdominal hernia surgery and has followed with both Dr. Steele and Dr. John of general surgery in the past. Patient states that her pain currently is generalized. Patient denies any fever associated with her symptoms. Review of Systems Review of Systems Constitutional: Denies fever or chills [] Eyes: Denies change in visual acuity, redness, or eye pain [] HENT: Denies nasal congestion or sore throat [] Respiratory: Denies cough or shortness of breath [] Cardiovascular: Denies chest pain or edema [] GI: Abdominal pain, nausea, vomiting, dark stools [] : Denies dysuria or hematuria [] Musculoskeletal: Denies back pain or joint pain [] Integument: Denies rash or skin lesions [] Neurologic: Denies headache, focal weakness or sensory changes [] Current Medications Current Medications Current Medications Medications (Trade) Dose Ordered Sig/Suki Start Time Stop Time Status Last Admin Dose Admin Famotidine (Pepcid) 20 mg 1X ONCE 12/20/16 18:30 12/20/16 18:31 DC 12/20/16 18:38 20 MG Ondansetron HCl (Zofran) 4 mg 1X ONCE 12/20/16 18:30 12/20/16 18:31 DC 12/20/16 18:35 4 MG Sodium Chloride 1,000 ml @ 1,000 mls/hr Q1H 12/20/16 18:18 12/20/16 19:17 DC 12/20/16 18:31 1,000 MLS/HR Allergies Allergies Allergies Coded Allergies Type Severity Reaction Last Updated Verified prochlorperazine edisylate Allergy Severe Anaphylaxis 12/05/16 Yes prochlorperazine maleate Allergy Severe Anaphylaxis 12/05/16 Yes adhesive Allergy Intermediate 12/05/16 Yes ciprofloxacin Allergy Intermediate hallucinations 12/05/16 Yes ciprofloxacin HCl Allergy Intermediate hallucinations 12/05/16 Yes clindamycin Allergy Intermediate extreme heartburn 12/05/16 Yes latex Allergy Intermediate 12/05/16 Yes oxycodone Allergy Intermediate 12/05/16 Yes Physical Exam Physical Exam Constitutional: Alert, afebrile, appears in moderate to severe discomfort. [] HENT: Normocephalic, atraumatic, bilateral external ears normal, oropharynx moist, no oral exudates, nose normal. [] Eyes: PERRLA, EOMI, conjunctiva normal, no discharge. [] Neck: Normal range of motion, no tenderness, supple, no stridor. [] Cardiovascular:Heart rate regular rhythm, no murmur [] Lungs & Thorax: Mild to moderate restriction of air movement bilaterally, no wheezes, no rales [] Abdomen: Bowel sounds hypoactive, abdomen distended, diffusely tender in all 4 quadrants, ventral wall hernia reducible. [] Skin: Warm, dry, no erythema, no rash. [] Back: No tenderness, no CVA tenderness. [] Extremities: No tenderness, no cyanosis, no clubbing, ROM intact, no edema. [] Neurologic: Alert and oriented X 3, normal motor function, normal sensory function, no focal deficits noted. [] Current Patient Data Vital Signs Vital Signs Date Time Temp Pulse Resp B/P (MAP) Pulse Ox O2 Delivery O2 Flow Rate FiO2 12/20/16 18:58 96 Nasal Cannula 2.0 12/20/16 18:26 94 20 139/75 (96) 12/20/16 17:55 99.1 99.1 Lab Values Laboratory Tests Test 12/20/16 18:18 12/20/16 18:25 12/20/16 19:35 O2 Saturation 95 % (92-99) Arterial Blood pH 7.41 (7.35-7.45) Arterial Blood pCO2 at Patient Temp 39 mmHg (35-46) Arterial Blood pO2 at Patient Temp 84 mmHg (65-108) Arterial Blood HCO3 24 mmol/L (21-28) Arterial Blood Base Excess 0 mmol/L (-3-3) FiO2 28 White Blood Count 15.1 x10^3/uL (4.0-11.0) H Red Blood Count 3.95 x10^6/uL (3.50-5.40) Hemoglobin 11.2 g/dL (12.0-15.5) L Hematocrit 33.8 % (36.0-47.0) L Mean Corpuscular Volume 86 fL (79-100) Mean Corpuscular Hemoglobin 28 pg (25-35) Mean Corpuscular Hemoglobin Concent 33 g/dL (31-37) Red Cell Distribution Width 18.3 % (11.5-14.5) H Platelet Count 627 x10^3/uL (140-400) H Neutrophils (%) (Auto) 81 % (31-73) H Lymphocytes (%) (Auto) 9 % (24-48) L Monocytes (%) (Auto) 8 % (0-9) Eosinophils (%) (Auto) 0 % (0-3) Basophils (%) (Auto) 1 % (0-3) Neutrophils # (Auto) 12.3 x10^3uL (1.8-7.7) H Lymphocytes # (Auto) 1.4 x10^3/uL (1.0-4.8) Monocytes # (Auto) 1.1 x10^3/uL (0.0-1.1) Eosinophils # (Auto) 0.1 x10^3/uL (0.0-0.7) Basophils # (Auto) 0.2 x10^3/uL (0.0-0.2) Prothrombin Time 27.6 SEC (11.7-14.0) H Prothrombin Time INR 2.8 (0.8-1.1) H PTT 41 SEC (24-38) H Sodium Level 139 mmol/L (136-145) Potassium Level 4.0 mmol/L (3.5-5.1) Chloride Level 103 mmol/L (98-107) Carbon Dioxide Level 25 mmol/L (21-32) Anion Gap 11 (6-14) Blood Urea Nitrogen 19 mg/dL (7-20) Creatinine 0.8 mg/dL (0.6-1.0) Estimated GFR (Cockcroft-Gault) 70.7 BUN/Creatinine Ratio 24 (6-20) H Glucose Level 156 mg/dL (70-99) H Lactic Acid Level 0.9 mmol/L (0.4-2.0) Calcium Level 8.9 mg/dL (8.5-10.1) Total Bilirubin 0.3 mg/dL (0.2-1.0) Aspartate Amino Transferase (AST) 32 U/L (15-37) Alanine Aminotransferase (ALT) 39 U/L (14-59) Alkaline Phosphatase 127 U/L (46-116) H Total Protein 7.4 g/dL (6.4-8.2) Albumin 2.8 g/dL (3.4-5.0) L Albumin/Globulin Ratio 0.6 (1.0-1.7) L Lipase 360 U/L (73-393) Stool Occult Blood Negative (NEG) Laboratory Tests 12/20/16 18:25 Laboratory Tests 12/20/16 18:25 EKG EKG Interpreted by me: Heart rate 96, sinus rhythm, left axis deviation, no acute ST /T-wave abnormalities present [] Radiology/Procedures Radiology/Procedures 3 view acute abdominal series interpreted by me: No pulmonary infiltrates or effusions, normal cardiac silhouette, multiple loops of distended small bowel [] Course & Med Decision Making Course & Med Decision Making Pertinent Labs and Imaging studies reviewed. (See chart for details) The patient's abdominal x-rays appear consistent with acute small bowel obstruction. Stool guaiac test was negative for blood. The patient was initially started on IV fluids and Zofran. The patient had an NG tube placed in the emergency department and was given IV morphine for pain. I spoke with Dr. John of general surgery. He agreed with initial measures and will follow with patient in hospital. Patient admitted to Dr. Rodriguez. Sergio Disclaimer Sergio Disclaimer This electronic medical record was generated, in whole or in part, using a voice recognition dictation system. Departure Departure Impression: Primary Impression: Small bowel obstruction Disposition: ADMITTED INPATIENT Admitting Physician: Patricia Rodriguez Condition: GUARDED Referrals: DIMA BARAJAS MD (PCP) REINA CUMMINGS MD Dec 20, 2016 18:22
[2016-12-20] MEDS ORDERED: FAMOTIDINE 20 MG/2 ML VIAL IVP ONE (18:30)
[2016-12-20] MEDS ORDERED: ONDANSETRON PF 4 MG/2 ML VIAL. IV ONE (18:30)
[2016-12-20 18:35] LABS: BASO # 0.2 x10^3/uL (0.0-0.2); BASO % 1 % (0-3); EOS % 0 % (0-3); HEMATOCRIT 33.8 % (36.0-47.0); HEMOGLOBIN 11.2 g/dL (12.0-15.5); LYMPH # 1.4 x10^3/uL (1.0-4.8); LYMPH % 9 % (24-48); MEAN CORPUSCULAR HEMOGLOBIN 28 pg (25-35); MEAN CORPUSCULAR HGB CONC 33 g/dL (31-37); MEAN CORPUSCULAR VOLUME 86 fL (79-100); MONO % 8 % (0-9); NEUT % 81 % (31-73); PLATELET COUNT 627 x10^3/uL (140-400); RED BLOOD COUNT 3.95 x10^6/uL (3.50-5.40); RED CELL DISTRIBUTION WIDTH 18.3 % (11.5-14.5); WHITE BLOOD COUNT 15.1 x10^3/uL (4.0-11.0)
[2016-12-20 18:48] LABS: INR 2.8 (0.8-1.1); PROTHROMBIN TIME PATIENT 27.6 SEC (11.7-14.0)
[2016-12-20 19:26] LABS: CALCIUM 8.9 mg/dL (8.5-10.1); CREATININE 0.8 mg/dL (0.6-1.0); GFR 70.7
[2016-12-20 19:26] LABS: HCO3 ABG 24 mmol/L (21-28); PCO2 ABG 39 mmHg (35-46); PH ABG 7.41 (7.35-7.45); PO2 ABG 84 mmHg (65-108); SAT O2 ABG 95 % (92-99)
[2016-12-20 19:27] LABS: FIO2 ABG 28
[2016-12-20 19:35] LABS: ALBUMIN 2.8 g/dL (3.4-5.0); ALBUMIN/GLOBULIN RATIO 0.6 (1.0-1.7); TOTAL BILIRUBIN 0.3 mg/dL (0.2-1.0); TOTAL PROTEIN 7.4 g/dL (6.4-8.2)
[2016-12-20 19:56] LABS: NEG OBC FOB NEG; POS OBC FOB POS
[2016-12-20] MEDS ORDERED: MORPHINE SULFATE 10 MG/ML VIAL. IV ONE (20:30)
[2016-12-20] MEDS ORDERED: diphenhydrAMINE 50 MG/ML VIAL IVP PRN (20:45)
[2016-12-20] MEDS ORDERED: MORPHINE SULFATE 2 MG/ML DISP.SYRIN. IV PRN (20:45)
[2016-12-20] MEDS ORDERED: ACETAMINOPHEN 325 MG TABLET. PO PRN (20:45)
[2016-12-20] MEDS ORDERED: PROCHLORPERAZINE 10 MG/2 ML VIAL. IV PRN (20:45)
[2016-12-20] MEDS ORDERED: ONDANSETRON PF 4 MG/2 ML VIAL. IV PRN (20:45)
--- NOTE | 2016-12-20 20:47 | PDOC1 ---
History and Physical Date of Admission Date of Admission DATE: 12/20/16 TIME: 20:33 Identification/Chief Complaint Chief Complaint abd pain, vomiting multiple times today Problems: Source Source: Caregiver, Chart review, Patient History of Present Illness History of Present Illness Very pleasant 71/ y/oCAucasian female, from [facility] after a recent R knee sx by Louie Valladares on dec 05, comes in bec of today's acute onset emesis multiple times, loose stools severe abd pain, and bloatedness, Rushed to ER, Tympanitic abd, in pain, clearly uncomfortable, Acute abd series shows SBO, NGT placed and immediately, 400cc bilous matl out, Multiple abd sxs, known to our GS service, Sx include hernia repair with midline scar appreciable this yr, and a yvonne'? or pyloroplasty last yr also by our GS group. GS consulted,a oswald of admission, BP high side. Awaiting home meds, Will be strictly NPO Past Medical History Cardiovascular: HTN, Hyperlipidemia Past Surgical History Past Surgical History: Other (hernia repair, nissens. pylorolasty, TKA) Family History Family History: No Significant Social History Smoke: No ALCOHOL: none Drugs: None Current Medications Current Medications Current Medications Sodium Chloride 1,000 ml @ 1,000 mls/hr Q1H IV Last administered on 12/20/16 18:31; Start 12/20/16 at 18:18; Stop 12/20/16 at 19:17; Status DC Ondansetron HCl (Zofran) 4 mg 1X ONCE IV Last administered on 12/20/16 18:35 ; Start 12/20/16 at 18:30; Stop 12/20/16 at 18:31; Status DC Famotidine (Pepcid) 20 mg 1X ONCE IVP Last administered on 12/20/16 18:38; Start 12/20/16 at 18:30; Stop 12/20/16 at 18:31; Status DC Morphine Sulfate 5 mg 1X ONCE IV ; Start 12/20/16 at 20:30; Stop 12/20/16 at 20 :31; Status DC Active Scripts Active Reported Vitamin D (Cholecalciferol (Vitamin D3)) 2,000 Unit Capsule 2,000 Unit PO TID Cyclobenzaprine Hcl 10 Mg Tablet 10 Mg PO TID Lortab 5-325 mg Tablet (Hydrocodone/Acetaminophen) 1 Each Tablet 1 Tab PO PRN Q6HRS PRN Fioricet 50-300-40 Mg Capsule (Butalb/Acetaminophen/Caffeine) 1 Each Capsule 1 Each PO PRN Q4HRS PRN Gabapentin 100 Mg Capsule 300 Mg PO TID [gi cocktail] 500 Mg PO PRN PRN [Clonidine/Pump] [Fentanyl/Pump] Aspirin 325 Mg Tablet 1 Tab PO DAILY Bupivacaine 0.25% On-Q Pump (Bupivacaine Hcl/Pf) 100 Ml Els.desulfurizer machine.fr 100 Ml IJ PER PAIN PUMP Alprazolam 0.5 Mg Tab.rapdis 0.5 Mg PO PRN Zofran Odt (Ondansetron) 8 Mg Tab.rapdis 8 Mg PO PRN Ambien (Zolpidem Tartrate) 5 Mg Tablet 5 Mg PO HS Risperdal (Risperidone) 0.5 Mg Tablet 0.5 Mg PO HS [domperadone] 10mg Tablet 20 Mg PO TIDAC Omeprazole 40 Mg Capsule.dr 40 Mg PO BID Zocor (Simvastatin) 20 Mg Tablet 20 Mg PO HS Wellbutrin (Bupropion Hcl) 100 Mg Tablet 150 Mg PO DAILY Levothyroxine Sodium 25 Mcg Tablet 50 Mcg PO DAILY Allergies Allergies: Coded Allergies: prochlorperazine edisylate (Verified Allergy, Severe, Anaphylaxis, 12/05/16) prochlorperazine maleate (Verified Allergy, Severe, Anaphylaxis, 12/05/16) adhesive (Verified Allergy, Intermediate, 12/05/16) ciprofloxacin (Verified Allergy, Intermediate, hallucinations, 12/05/16) ciprofloxacin HCl (Verified Allergy, Intermediate, hallucinations, 12/05/16) clindamycin (Verified Allergy, Intermediate, extreme heartburn, 12/05/16) latex (Verified Allergy, Intermediate, 12/05/16) oxycodone (Verified Allergy, Intermediate, 12/05/16) 'HALLUCINATIONS' ROS Review of System as per HPI, limited uncomfortable Physical Exam General: No acute distress, Other (but clearly uncofrtable) HEENT: Atraumatic, PERRLA, Other (NGT in place with bilous draiange) Lungs: Clear to auscultation Heart: S1S2, RRR, no gallops, no murmurs Cardiovascular: S1, S2 Breasts: Normal, Rt breast nml w/o mass, Lt breast nml w/o mass, Nipples normal Abdomen: Normal bowel sounds, Soft, No tenderness (tender on mild to mod palp, bloated, tympanitic no guarding), No hepatosplenomegaly, No masses Male Genitals Exam: normal genitalia, normal prostate Rectal Exam: not examined Extremities: No clubbing, No cyanosis, No edema, Normal pulses, No tenderness/ swelling Vitals Vitals Vital Signs Date Time Temp Pulse Resp B/P (MAP) Pulse Ox O2 Delivery O2 Flow Rate FiO2 12/20/16 18:58 96 Nasal Cannula 2.0 12/20/16 18:26 94 20 139/75 (96) 12/20/16 17:55 99.1 99.1 Labs Labs Laboratory Tests Test 12/20/16 18:18 12/20/16 18:25 12/20/16 19:35 O2 Saturation 95 % (92-99) Arterial Blood pH 7.41 (7.35-7.45) Arterial Blood pCO2 at Patient Temp 39 mmHg (35-46) Arterial Blood pO2 at Patient Temp 84 mmHg (65-108) Arterial Blood HCO3 24 mmol/L (21-28) Arterial Blood Base Excess 0 mmol/L (-3-3) FiO2 28 White Blood Count 15.1 x10^3/uL (4.0-11.0) Red Blood Count 3.95 x10^6/uL (3.50-5.40) Hemoglobin 11.2 g/dL (12.0-15.5) Hematocrit 33.8 % (36.0-47.0) Mean Corpuscular Volume 86 fL (79-100) Mean Corpuscular Hemoglobin 28 pg (25-35) Mean Corpuscular Hemoglobin Concent 33 g/dL (31-37) Red Cell Distribution Width 18.3 % (11.5-14.5) Platelet Count 627 x10^3/uL (140-400) Neutrophils (%) (Auto) 81 % (31-73) Lymphocytes (%) (Auto) 9 % (24-48) Monocytes (%) (Auto) 8 % (0-9) Eosinophils (%) (Auto) 0 % (0-3) Basophils (%) (Auto) 1 % (0-3) Neutrophils # (Auto) 12.3 x10^3uL (1.8-7.7) Lymphocytes # (Auto) 1.4 x10^3/uL (1.0-4.8) Monocytes # (Auto) 1.1 x10^3/uL (0.0-1.1) Eosinophils # (Auto) 0.1 x10^3/uL (0.0-0.7) Basophils # (Auto) 0.2 x10^3/uL (0.0-0.2) Prothrombin Time 27.6 SEC (11.7-14.0) Prothromb Time International Ratio 2.8 (0.8-1.1) Activated Partial Thromboplast Time 41 SEC (24-38) Sodium Level 139 mmol/L (136-145) Potassium Level 4.0 mmol/L (3.5-5.1) Chloride Level 103 mmol/L (98-107) Carbon Dioxide Level 25 mmol/L (21-32) Anion Gap 11 (6-14) Blood Urea Nitrogen 19 mg/dL (7-20) Creatinine 0.8 mg/dL (0.6-1.0) Estimated GFR (Cockcroft-Gault) 70.7 BUN/Creatinine Ratio 24 (6-20) Glucose Level 156 mg/dL (70-99) Lactic Acid Level 0.9 mmol/L (0.4-2.0) Calcium Level 8.9 mg/dL (8.5-10.1) Total Bilirubin 0.3 mg/dL (0.2-1.0) Aspartate Amino Transf (AST/SGOT) 32 U/L (15-37) Alanine Aminotransferase (ALT/SGPT) 39 U/L (14-59) Alkaline Phosphatase 127 U/L (46-116) Total Protein 7.4 g/dL (6.4-8.2) Albumin 2.8 g/dL (3.4-5.0) Albumin/Globulin Ratio 0.6 (1.0-1.7) Lipase 360 U/L (73-393) Stool Occult Blood Negative (NEG) Laboratory Tests Test 12/20/16 18:18 12/20/16 18:25 12/20/16 19:35 O2 Saturation 95 % (92-99) Arterial Blood pH 7.41 (7.35-7.45) Arterial Blood pCO2 at Patient Temp 39 mmHg (35-46) Arterial Blood pO2 at Patient Temp 84 mmHg (65-108) Arterial Blood HCO3 24 mmol/L (21-28) Arterial Blood Base Excess 0 mmol/L (-3-3) FiO2 28 White Blood Count 15.1 x10^3/uL (4.0-11.0) Red Blood Count 3.95 x10^6/uL (3.50-5.40) Hemoglobin 11.2 g/dL (12.0-15.5) Hematocrit 33.8 % (36.0-47.0) Mean Corpuscular Volume 86 fL (79-100) Mean Corpuscular Hemoglobin 28 pg (25-35) Mean Corpuscular Hemoglobin Concent 33 g/dL (31-37) Red Cell Distribution Width 18.3 % (11.5-14.5) Platelet Count 627 x10^3/uL (140-400) Neutrophils (%) (Auto) 81 % (31-73) Lymphocytes (%) (Auto) 9 % (24-48) Monocytes (%) (Auto) 8 % (0-9) Eosinophils (%) (Auto) 0 % (0-3) Basophils (%) (Auto) 1 % (0-3) Neutrophils # (Auto) 12.3 x10^3uL (1.8-7.7) Lymphocytes # (Auto) 1.4 x10^3/uL (1.0-4.8) Monocytes # (Auto) 1.1 x10^3/uL (0.0-1.1) Eosinophils # (Auto) 0.1 x10^3/uL (0.0-0.7) Basophils # (Auto) 0.2 x10^3/uL (0.0-0.2) Prothrombin Time 27.6 SEC (11.7-14.0) Prothromb Time International Ratio 2.8 (0.8-1.1) Activated Partial Thromboplast Time 41 SEC (24-38) Sodium Level 139 mmol/L (136-145) Potassium Level 4.0 mmol/L (3.5-5.1) Chloride Level 103 mmol/L (98-107) Carbon Dioxide Level 25 mmol/L (21-32) Anion Gap 11 (6-14) Blood Urea Nitrogen 19 mg/dL (7-20) Creatinine 0.8 mg/dL (0.6-1.0) Estimated GFR (Cockcroft-Gault) 70.7 BUN/Creatinine Ratio 24 (6-20) Glucose Level 156 mg/dL (70-99) Lactic Acid Level 0.9 mmol/L (0.4-2.0) Calcium Level 8.9 mg/dL (8.5-10.1) Total Bilirubin 0.3 mg/dL (0.2-1.0) Aspartate Amino Transf (AST/SGOT) 32 U/L (15-37) Alanine Aminotransferase (ALT/SGPT) 39 U/L (14-59) Alkaline Phosphatase 127 U/L (46-116) Total Protein 7.4 g/dL (6.4-8.2) Albumin 2.8 g/dL (3.4-5.0) Albumin/Globulin Ratio 0.6 (1.0-1.7) Lipase 360 U/L (73-393) Stool Occult Blood Negative (NEG) VTE Prophylaxis Ordered VTE Prophylaxis Devices: Yes VTE Pharmacological Prophylaxi: Yes Assessment/Plan Assessment/Plan 1. BOwel obstruction, indwelling NGT with drainage 2. Mult abd sxs, (hernia repair, yvonne/pyloropasty?) 3. SIRS POA no sepsis 4. Recent Rt knee TKA 5. Diarrhea PLAN: Admit STrict NPO Pocalamine for nutrition DVt prophy PT/OT PPI iV COnsult GS Consult Ortho - due 2 week post TKA ff up Should be on coumadin post knee sx? buts trictly NPO so I have her on Lovenox qD only - will defer to orthi if want BID therapeutic dose IV synthroid - half dose of oral synthroid Ice chips ok NGT to low intermittent suction Send for stool studies PAin control ICe chips ok Dw hsuband and ER MD Dr. Jhaveri Recheck labs marta feliciano leukocytosis SANGEETA BARKLEY MD Dec 20, 2016 20:47
[2016-12-20] MEDS: ONDANSETRON PF 4 MG/2 ML VIAL. IV PRN (20:51)
[2016-12-20] MEDS: ENOXAPARIN 40 MG/0.4 ML SYRINGE. SQ SCH (21:00)
[2016-12-20 21:20] VITALS: BP 115/81
[2016-12-20] MEDS: IV NORMAL SALINE 1000ML BAG 1,000 ML IV SCH (21:20)
[2016-12-20] MEDS: fentaNYL PF VIAL 100 MCG/2 ML VIAL IV PRN (21:38)
[2016-12-20] MEDS: AMINO AC 3%/ELECTROLYTE/GLYCER 1,000 ML IV SCH (21:42)
--- NOTE | 2016-12-20 22:03 | EKG ---
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
[2016-12-20] MEDS: NITROGLYCERIN SUBLINGUAL 0.4 MG BOTTLE OF 25. SL PRN ×2 (22:42→22:57)
[2016-12-20 22:58] LABS: NEG OBC GOB NEG
[2016-12-20 22:59] LABS: POS OBC GOB POS
[2016-12-20 23:00] VITALS: BP 112/61
--- NOTE | 2016-12-20 23:09 | ACF ---
Admission Forms Criteria INTESTINAL OBSTRUCTION Clinical Indications for Admission to Inpatient Care ([place]/check or initial the applicable condition/criteria) Admission is indicated for 1 or more of the following (1)(2)(3)(4)(5)(6)(7): [X] I. Partial bowel obstruction II. Complete bowel obstruction Extended stay beyond goal length of stay may be needed for(3)(25): [ ]a) Identified etiology (eg, hernia, volvulus, cancer with obstruction) requiring intervention [ ]b) Gallstone ileus (26) [ ]c) Surgical intervention (3)(4)(5)(7)(27)(28)(29)(30): [ ]d) Acute comorbid illness (eg, electrolyte imbalance, hypovolemia, renal failure) The original [employer] content created by [employer] has been revised. The portions of the content which have been revised are identified through the use of italic text or in bold, and [facility] has neither reviewed nor approved the modified material. All other unmodified content is copyright [facility]. Please see references footnoted in the original [employer] edition 2017 Admission Criteria Met?: Yes KAJAL GUTIERREZ Dec 20, 2016 23:09
[2016-12-20 23:24] LABS: CKMB MASS 1.6 ng/mL (0.0-3.6)
[2016-12-21 03:00] VITALS: BP 123/81
[2016-12-21 05:16] LABS: BILIRUBIN,URINE NEGATIVE (NEG); GLUCOSE,URINE NEGATIVE (NEG); NITRITE,URINE NEGATIVE (NEG); PROTEIN,URINE NEGATIVE (NEG-TRACE); UROBILINOGEN,URINE 0.2 mg/dL (0.2 mg/dL)
[2016-12-21 05:27] LABS: BACTERIA,URINE FEW /HPF (0-FEW); RBC,URINE OCC /HPF (0-2); SQUAMOUS EPITHELIAL CELL,UR MOD /LPF
[2016-12-21] MEDS: fentaNYL PF VIAL 100 MCG/2 ML VIAL IV PRN ×4 (05:31→13:14)
[2016-12-21 05:58] LABS: BASO # 0.1 x10^3/uL (0.0-0.2); BASO % 1 % (0-3); EOS % 1 % (0-3); HEMATOCRIT 27.8 % (36.0-47.0); HEMOGLOBIN 9.3 g/dL (12.0-15.5); LYMPH # 2.7 x10^3/uL (1.0-4.8); LYMPH % 23 % (24-48); MEAN CORPUSCULAR HEMOGLOBIN 29 pg (25-35); MEAN CORPUSCULAR HGB CONC 33 g/dL (31-37); MEAN CORPUSCULAR VOLUME 87 fL (79-100); MONO % 11 % (0-9); NEUT % 63 % (31-73); PLATELET COUNT 539 x10^3/uL (140-400); RED BLOOD COUNT 3.19 x10^6/uL (3.50-5.40); RED CELL DISTRIBUTION WIDTH 18.8 % (11.5-14.5); WHITE BLOOD COUNT 11.5 x10^3/uL (4.0-11.0)
[2016-12-21 06:10] LABS: CREATININE 0.7 mg/dL (0.6-1.0); GFR 82.5; POTASSIUM 3.7 mmol/L (3.5-5.1)
[2016-12-21] MEDS: IV NORMAL SALINE 1000ML BAG 1,000 ML IV SCH ×2 (06:52→16:40)
[2016-12-21 07:00] VITALS: BP 134/75
[2016-12-21] MEDS ORDERED: SENN1TAB21 PO (07:02)
[2016-12-21] MEDS ORDERED: NA P133E2 RC (07:11)
[2016-12-21] MEDS ORDERED: PANT40TA3 PO (07:11)
[2016-12-21] MEDS ORDERED: LEVO50TA5 PO (07:11)
[2016-12-21] MEDS ORDERED: WARF-78 PO (07:11)
[2016-12-21] MEDS ORDERED: TRAM50TA PO ×2 (07:11)
[2016-12-21] MEDS ORDERED: GUAI600T47 PO (07:11)
[2016-12-21] MEDS ORDERED: BISA10SU55 RC (07:24)
[2016-12-21] MEDS: PHENOL ORAL SPRAY 177ML BOTTLE. PO PRN ×2 (08:32→22:38)
--- NOTE | 2016-12-21 09:15 | PDOC ---
ORTHO PROGRESS NOTES Vitals Vital Signs Date Time Temp Pulse Resp B/P (MAP) Pulse Ox O2 Delivery O2 Flow Rate FiO2 12/21/16 07:00 98.6 83 18 134/75 (94) 97 Nasal Cannula 2.0 98.6 Labs Laboratory Tests Test 12/20/16 18:18 12/20/16 18:25 12/20/16 19:35 12/20/16 22:45 O2 Saturation 95 % (92-99) Arterial Blood pH 7.41 (7.35-7.45) Arterial Blood pCO2 at Patient Temp 39 mmHg (35-46) Arterial Blood pO2 at Patient Temp 84 mmHg (65-108) Arterial Blood HCO3 24 mmol/L (21-28) Arterial Blood Base Excess 0 mmol/L (-3-3) FiO2 28 White Blood Count 15.1 x10^3/uL (4.0-11.0) Red Blood Count 3.95 x10^6/uL (3.50-5.40) Hemoglobin 11.2 g/dL (12.0-15.5) Hematocrit 33.8 % (36.0-47.0) Mean Corpuscular Volume 86 fL (79-100) Mean Corpuscular Hemoglobin 28 pg (25-35) Mean Corpuscular Hemoglobin Concent 33 g/dL (31-37) Red Cell Distribution Width 18.3 % (11.5-14.5) Platelet Count 627 x10^3/uL (140-400) Neutrophils (%) (Auto) 81 % (31-73) Lymphocytes (%) (Auto) 9 % (24-48) Monocytes (%) (Auto) 8 % (0-9) Eosinophils (%) (Auto) 0 % (0-3) Basophils (%) (Auto) 1 % (0-3) Neutrophils # (Auto) 12.3 x10^3uL (1.8-7.7) Lymphocytes # (Auto) 1.4 x10^3/uL (1.0-4.8) Monocytes # (Auto) 1.1 x10^3/uL (0.0-1.1) Eosinophils # (Auto) 0.1 x10^3/uL (0.0-0.7) Basophils # (Auto) 0.2 x10^3/uL (0.0-0.2) Prothrombin Time 27.6 SEC (11.7-14.0) Prothromb Time International Ratio 2.8 (0.8-1.1) Activated Partial Thromboplast Time 41 SEC (24-38) Sodium Level 139 mmol/L (136-145) Potassium Level 4.0 mmol/L (3.5-5.1) Chloride Level 103 mmol/L (98-107) Carbon Dioxide Level 25 mmol/L (21-32) Anion Gap 11 (6-14) Blood Urea Nitrogen 19 mg/dL (7-20) Creatinine 0.8 mg/dL (0.6-1.0) Estimated GFR (Cockcroft-Gault) 70.7 BUN/Creatinine Ratio 24 (6-20) Glucose Level 156 mg/dL (70-99) Lactic Acid Level 0.9 mmol/L (0.4-2.0) Calcium Level 8.9 mg/dL (8.5-10.1) Total Bilirubin 0.3 mg/dL (0.2-1.0) Aspartate Amino Transf (AST/SGOT) 32 U/L (15-37) Alanine Aminotransferase (ALT/SGPT) 39 U/L (14-59) Alkaline Phosphatase 127 U/L (46-116) Total Protein 7.4 g/dL (6.4-8.2) Albumin 2.8 g/dL (3.4-5.0) Albumin/Globulin Ratio 0.6 (1.0-1.7) Lipase 360 U/L (73-393) Stool Occult Blood Negative (NEG) Gastric Fluid Occult Blood Positive (NEG) Test 12/20/16 22:50 12/21/16 04:25 12/21/16 04:50 Creatine Kinase 82 U/L (26-192) Creatine Kinase MB (Mass) 1.6 ng/mL (0.0-3.6) Creatine Kinase MB Relative Index 2.0 % (0-4) Troponin I Quantitative < 0.017 ng/mL (0.000-0.055) White Blood Count 11.5 x10^3/uL (4.0-11.0) Red Blood Count 3.19 x10^6/uL (3.50-5.40) Hemoglobin 9.3 g/dL (12.0-15.5) Hematocrit 27.8 % (36.0-47.0) Mean Corpuscular Volume 87 fL (79-100) Mean Corpuscular Hemoglobin 29 pg (25-35) Mean Corpuscular Hemoglobin Concent 33 g/dL (31-37) Red Cell Distribution Width 18.8 % (11.5-14.5) Platelet Count 539 x10^3/uL (140-400) Neutrophils (%) (Auto) 63 % (31-73) Lymphocytes (%) (Auto) 23 % (24-48) Monocytes (%) (Auto) 11 % (0-9) Eosinophils (%) (Auto) 1 % (0-3) Basophils (%) (Auto) 1 % (0-3) Neutrophils # (Auto) 7.3 x10^3uL (1.8-7.7) Lymphocytes # (Auto) 2.7 x10^3/uL (1.0-4.8) Monocytes # (Auto) 1.3 x10^3/uL (0.0-1.1) Eosinophils # (Auto) 0.1 x10^3/uL (0.0-0.7) Basophils # (Auto) 0.1 x10^3/uL (0.0-0.2) Sodium Level 140 mmol/L (136-145) Potassium Level 3.7 mmol/L (3.5-5.1) Chloride Level 106 mmol/L (98-107) Carbon Dioxide Level 28 mmol/L (21-32) Anion Gap 6 (6-14) Blood Urea Nitrogen 14 mg/dL (7-20) Creatinine 0.7 mg/dL (0.6-1.0) Estimated GFR (Cockcroft-Gault) 82.5 Glucose Level 121 mg/dL (70-99) Calcium Level 8.0 mg/dL (8.5-10.1) Urine Collection Type Unknown Urine Color Yellow Urine Clarity Clear Urine pH 7.0 Urine Specific [place] 1.020 Urine Protein Negative mg/dL (NEG-TRACE) Urine Glucose (UA) Negative mg/dL (NEG) Urine Ketones (Stick) Negative mg/dL (NEG) Urine Blood Negative (NEG) Urine Nitrite Negative (NEG) Urine Bilirubin Negative (NEG) Urine Urobilinogen Dipstick 0.2 mg/dL (0.2 mg/dL) Urine Leukocyte Esterase Negative (NEG) Urine RBC Occ /HPF (0-2) Urine WBC 1-4 /HPF (0-4) Urine Squamous Epithelial Cells Mod /LPF Urine Bacteria Few /HPF (0-FEW) Urine Mucus Slight /LPF Laboratory Tests Test 12/20/16 18:18 12/20/16 18:25 12/20/16 19:35 12/20/16 22:45 O2 Saturation 95 % (92-99) Arterial Blood pH 7.41 (7.35-7.45) Arterial Blood pCO2 at Patient Temp 39 mmHg (35-46) Arterial Blood pO2 at Patient Temp 84 mmHg (65-108) Arterial Blood HCO3 24 mmol/L (21-28) Arterial Blood Base Excess 0 mmol/L (-3-3) FiO2 28 White Blood Count 15.1 x10^3/uL (4.0-11.0) Red Blood Count 3.95 x10^6/uL (3.50-5.40) Hemoglobin 11.2 g/dL (12.0-15.5) Hematocrit 33.8 % (36.0-47.0) Mean Corpuscular Volume 86 fL (79-100) Mean Corpuscular Hemoglobin 28 pg (25-35) Mean Corpuscular Hemoglobin Concent 33 g/dL (31-37) Red Cell Distribution Width 18.3 % (11.5-14.5) Platelet Count 627 x10^3/uL (140-400) Neutrophils (%) (Auto) 81 % (31-73) Lymphocytes (%) (Auto) 9 % (24-48) Monocytes (%) (Auto) 8 % (0-9) Eosinophils (%) (Auto) 0 % (0-3) Basophils (%) (Auto) 1 % (0-3) Neutrophils # (Auto) 12.3 x10^3uL (1.8-7.7) Lymphocytes # (Auto) 1.4 x10^3/uL (1.0-4.8) Monocytes # (Auto) 1.1 x10^3/uL (0.0-1.1) Eosinophils # (Auto) 0.1 x10^3/uL (0.0-0.7) Basophils # (Auto) 0.2 x10^3/uL (0.0-0.2) Prothrombin Time 27.6 SEC (11.7-14.0) Prothromb Time International Ratio 2.8 (0.8-1.1) Activated Partial Thromboplast Time 41 SEC (24-38) Sodium Level 139 mmol/L (136-145) Potassium Level 4.0 mmol/L (3.5-5.1) Chloride Level 103 mmol/L (98-107) Carbon Dioxide Level 25 mmol/L (21-32) Anion Gap 11 (6-14) Blood Urea Nitrogen 19 mg/dL (7-20) Creatinine 0.8 mg/dL (0.6-1.0) Estimated GFR (Cockcroft-Gault) 70.7 BUN/Creatinine Ratio 24 (6-20) Glucose Level 156 mg/dL (70-99) Lactic Acid Level 0.9 mmol/L (0.4-2.0) Calcium Level 8.9 mg/dL (8.5-10.1) Total Bilirubin 0.3 mg/dL (0.2-1.0) Aspartate Amino Transf (AST/SGOT) 32 U/L (15-37) Alanine Aminotransferase (ALT/SGPT) 39 U/L (14-59) Alkaline Phosphatase 127 U/L (46-116) Total Protein 7.4 g/dL (6.4-8.2) Albumin 2.8 g/dL (3.4-5.0) Albumin/Globulin Ratio 0.6 (1.0-1.7) Lipase 360 U/L (73-393) Stool Occult Blood Negative (NEG) Gastric Fluid Occult Blood Positive (NEG) Test 12/20/16 22:50 12/21/16 04:25 12/21/16 04:50 Creatine Kinase 82 U/L (26-192) Creatine Kinase MB (Mass) 1.6 ng/mL (0.0-3.6) Creatine Kinase MB Relative Index 2.0 % (0-4) Troponin I Quantitative < 0.017 ng/mL (0.000-0.055) White Blood Count 11.5 x10^3/uL (4.0-11.0) Red Blood Count 3.19 x10^6/uL (3.50-5.40) Hemoglobin 9.3 g/dL (12.0-15.5) Hematocrit 27.8 % (36.0-47.0) Mean Corpuscular Volume 87 fL (79-100) Mean Corpuscular Hemoglobin 29 pg (25-35) Mean Corpuscular Hemoglobin Concent 33 g/dL (31-37) Red Cell Distribution Width 18.8 % (11.5-14.5) Platelet Count 539 x10^3/uL (140-400) Neutrophils (%) (Auto) 63 % (31-73) Lymphocytes (%) (Auto) 23 % (24-48) Monocytes (%) (Auto) 11 % (0-9) Eosinophils (%) (Auto) 1 % (0-3) Basophils (%) (Auto) 1 % (0-3) Neutrophils # (Auto) 7.3 x10^3uL (1.8-7.7) Lymphocytes # (Auto) 2.7 x10^3/uL (1.0-4.8) Monocytes # (Auto) 1.3 x10^3/uL (0.0-1.1) Eosinophils # (Auto) 0.1 x10^3/uL (0.0-0.7) Basophils # (Auto) 0.1 x10^3/uL (0.0-0.2) Sodium Level 140 mmol/L (136-145) Potassium Level 3.7 mmol/L (3.5-5.1) Chloride Level 106 mmol/L (98-107) Carbon Dioxide Level 28 mmol/L (21-32) Anion Gap 6 (6-14) Blood Urea Nitrogen 14 mg/dL (7-20) Creatinine 0.7 mg/dL (0.6-1.0) Estimated GFR (Cockcroft-Gault) 82.5 Glucose Level 121 mg/dL (70-99) Calcium Level 8.0 mg/dL (8.5-10.1) Urine Collection Type Unknown Urine Color Yellow Urine Clarity Clear Urine pH 7.0 Urine Specific [place] 1.020 Urine Protein Negative mg/dL (NEG-TRACE) Urine Glucose (UA) Negative mg/dL (NEG) Urine Ketones (Stick) Negative mg/dL (NEG) Urine Blood Negative (NEG) Urine Nitrite Negative (NEG) Urine Bilirubin Negative (NEG) Urine Urobilinogen Dipstick 0.2 mg/dL (0.2 mg/dL) Urine Leukocyte Esterase Negative (NEG) Urine RBC Occ /HPF (0-2) Urine WBC 1-4 /HPF (0-4) Urine Squamous Epithelial Cells Mod /LPF Urine Bacteria Few /HPF (0-FEW) Urine Mucus Slight /LPF Assessment and Plan WBAT, PT as eldon Lovenox 40 daily AIDAN ROMO II, MD Dec 21, 2016 09:15
--- NOTE | 2016-12-21 09:19 | PDOC2 ---
CONSULT Date of Consult Date of Consult DATE: 12/21/16 TIME: 09:15 Reason for Consult Reason for Consult: Right total knee arthroplasty Referring Physician Referring Physician: Jennifer Identification/Chief Complaint Chief Complaint Nausea and vomiting Problems: Source Source: Caregiver, Patient History of Present Illness Reason for Visit: Hayley underwent a right total knee arthroplasty with an uncomplicated postoperative course until recently. [place] had some abdominal distention, fullness, nausea and a large amount of vomiting. She was transferred back here for a small bowel obstruction. She tells me her right knee has been sore. She does not take her Coumadin yesterday. She feels pretty fatigued as well. Her abdomen is a little bit better since arriving here. She still has some nausea. Past Medical History Cardiovascular: HTN, Hyperlipidemia Past Surgical History Past Surgical History: Total hip replacement, Total knee replacement, Other ( hernia repair, nissens. pylorolasty, TKA) Family History Family History: No Significant Social History No ALCOHOL: none Drugs: None Current Medications Current Medications Current Medications Sodium Chloride 1,000 ml @ 1,000 mls/hr Q1H IV Last administered on 12/20/16 18:31; Start 12/20/16 at 18:18; Stop 12/20/16 at 19:17; Status DC Ondansetron HCl (Zofran) 4 mg 1X ONCE IV Last administered on 12/20/16 18:35 ; Start 12/20/16 at 18:30; Stop 12/20/16 at 18:31; Status DC Famotidine (Pepcid) 20 mg 1X ONCE IVP Last administered on 12/20/16 18:38; Start 12/20/16 at 18:30; Stop 12/20/16 at 18:31; Status DC Morphine Sulfate 5 mg 1X ONCE IV Last administered on 12/20/16 20:48; Start 12/20/16 at 20:30; Stop 12/20/16 at 20:31; Status DC Morphine Sulfate 4 mg PRN Q2HR PRN IV PAIN; Start 12/20/16 at 20:45 Ondansetron HCl (Zofran) 4 mg PRN Q6HRS PRN IV NAUSEA/VOMITING Last administered on 12/20/16 20:51; Start 12/20/16 at 20:45 Prochlorperazine Edisylate (Compazine) 10 mg TID PRN IV n/v; Start 12/20/16 at 20:45; Status UNV Enoxaparin Sodium (Lovenox 40mg Syringe) 40 mg QHS SQ ; Start 12/20/16 at 21:00 Lorazepam (Ativan) 1 mg PRN Q4HRS PRN IV ANXIETY / AGITATION Last administered on 12/20/16 23:13; Start 12/20/16 at 20:45 Diphenhydramine HCl (Benadryl) 25 mg PRN QHS PRN IVP sleep; Start 12/20/16 at 20:45 Amino Acids/ Glycerin/ Electrolytes 1,000 ml @ 80 mls/hr [id number] IV Last administered on 12/20/16 21:42; Start 12/20/16 at 20:45 Ondansetron HCl (Zofran) 4 mg PRN Q8HRS PRN IV NAUSEA/VOMITING; Start 12/20/16 at 20:45; Stop 12/21/16 at 20:44 Fentanyl Citrate (Fentanyl 2ml Vial) 50 mcg PRN Q2HR PRN IV PAIN Last administered on 12/21/16 08:32; Start 12/20/16 at 20:45; Stop 12/21/16 at 20:44 Sodium Chloride 1,000 ml @ 100 mls/hr Q10H IV Last administered on 12/21/16 06:52; Start 12/20/16 at 20:40; Stop 12/21/16 at 20:39 Acetaminophen (Tylenol) 650 mg PRN Q4HRS PRN PO FEVER; Start 12/20/16 at 20:45 ; Stop 12/21/16 at 20:44 Levothyroxine Sodium 25 mcg/ Sodium Chloride 5 ml @ 100 mls/hr DAILY IVP ; Start 12/21/16 at 09:00 Nitroglycerin (Nitrostat) 0.4 mg PRN Q5MIN PRN SL X 3 DOSES FOR CHEST PAIN Last administered on 12/20/16 22:57; Start 12/20/16 at 22:00 Throat Lozenges (Chloraseptic) 1 spray PRN Q2HR PRN PO SORE THROAT Last administered on 12/21/16 08:32; Start 12/21/16 at 08:00 Active Scripts Active Reported Dulcolax (Bisacodyl) 10 Mg Supp.rect 10 Mg RC PRN DAILY PRN Fleet Enema (Na Phos,M-B/Na Phos,Di-Ba) 133 Ml Enema 1 Each RC DAILY PRN Tramadol Hcl 50 Mg Tablet 2 Tab PO PRN Q3HRS PRN Tramadol Hcl 50 Mg Tablet 1 Tab PO PRN Q6HRS Mucinex (Guaifenesin) 600 Mg Tablet.er 1 Tab PO BID PRN Coumadin (Warfarin Sodium) 5 Mg Tablet 1 Tab PO DAILY Protonix (Pantoprazole Sodium) 40 Mg Tablet.dr 1 Tab PO DAILY Levothyroxine Sodium 50 Mcg Tablet 1 Tab PO DAILY Senna Plus Tablet (Sennosides/Docusate Sodium) 1 Each Tablet 1 Tab PO DAILY Vitamin D (Cholecalciferol (Vitamin D3)) 2,000 Unit Capsule 2,000 Unit PO TID Cyclobenzaprine Hcl 10 Mg Tablet 10 Mg PO TID Lortab 5-325 mg Tablet (Hydrocodone/Acetaminophen) 1 Each Tablet 1 Tab PO PRN Q6HRS PRN Fioricet 50-300-40 Mg Capsule (Butalb/Acetaminophen/Caffeine) 1 Each Capsule 1 Each PO PRN Q4HRS PRN Gabapentin 100 Mg Capsule 300 Mg PO TID [gi cocktail] 500 Mg PO PRN PRN [Clonidine/Pump] [Fentanyl/Pump] Aspirin 325 Mg Tablet 1 Tab PO DAILY Bupivacaine 0.25% On-Q Pump (Bupivacaine Hcl/Pf) 100 Ml 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 100 Ml IJ PER PAIN PUMP Alprazolam 0.5 Mg Tab.rapdis 0.5 Mg PO PRN Zofran Odt (Ondansetron) 8 Mg Tab.rapdis 8 Mg PO PRN Ambien (Zolpidem Tartrate) 5 Mg Tablet 5 Mg PO HS Risperdal (Risperidone) 0.5 Mg Tablet 0.5 Mg PO HS [domperadone] 10mg Tablet 20 Mg PO TIDAC Omeprazole 40 Mg Capsule.dr 40 Mg PO BID Zocor (Simvastatin) 20 Mg Tablet 20 Mg PO HS Wellbutrin (Bupropion Hcl) 100 Mg Tablet 150 Mg PO DAILY Levothyroxine Sodium 25 Mcg Tablet 50 Mcg PO DAILY Allergies Allergies: Coded Allergies: prochlorperazine edisylate (Verified Allergy, Severe, Anaphylaxis, 12/05/16) prochlorperazine maleate (Verified Allergy, Severe, Anaphylaxis, 12/05/16) adhesive (Verified Allergy, Intermediate, 12/05/16) ciprofloxacin (Verified Allergy, Intermediate, hallucinations, 12/05/16) ciprofloxacin HCl (Verified Allergy, Intermediate, hallucinations, 12/05/16) clindamycin (Verified Allergy, Intermediate, extreme heartburn, 12/05/16) latex (Verified Allergy, Intermediate, 12/05/16) oxycodone (Verified Allergy, Intermediate, 12/05/16) 'HALLUCINATIONS' ROS General: YES: Fatigue PSYCHOLOGICAL ROS: No: Anxiety, Behavioral Disorder, Concentration difficultie , Decreased libido, Depression, Disorientation, Hallucinations, Hostility, Irritablity, Memory difficulties, Mood Swings, Obsessive thoughts, Physical abuse, Sexual abuse, Sleep disturbances, Suicidal ideation, Other Eyes: No Blurry vision, No Decreased vision, No Double vision, No Dry eyes, No Excessive tearing, No Eye Pain, No Itchy Eyes, No Loss of vision, No Photophobia , No Scotomata, No Uses contacts, No Uses glasses, No Other HEENT: No: Heacaches, Visual Changes, Hearing change, Nasal congestion, Nasal discharge, Oral lesions, Sinus pain, Sore Throat, Epistaxis, Sneezing, Snoring, Tinnitus, Vertigo, Vocal changes, Other ALLERGY AND IMMUNOLOGY: No: Hives, Insect Bite Sensitivity, Itchy/Watery Eyes, Nasal Congestion, Post Nasal Drip, Seasonal Allergies, Other Respiratory: No: Cough, Hemoptysis, Orthopnea, Pleuritic Pain, Shortness of breath, SOB with excertion, Sputum Changes, Stridor, Tachypnea, Wheezing, Other Cardiovascular: No Chest Pain, No Palpitations, No Orthopnea, No Paroxysmal Noc. Dyspnea, No Edema, No Lt Headedness, No Other Gastrointestinal: Yes Nausea, Yes Vomiting, Yes Abdominal Pain Genitourinary: No Dysuria, No Frequency, No Incontinence, No Hematuria, No Retention, No Discharge, No Urgency, No Pain, No Flank Pain, No Other, No , No , No , No , No , No , No Musculoskeletal: Yes Joint Pain Neurological: No Behavorial Changes, No Bowel/Bladder ControlChng, No Confusion , No Dizziness, No Gait Disturbance, No Headaches, No Impaired Coord/balance, No Memory Loss, No Numbness/Tingling, No Seizures, No Speech Problems, No Tremors, No Visual Changes, No Weakness, No Other Physical Exam General: Alert, Oriented X3, Other (she is ill-appearing) HEENT: Atraumatic, EOMI Lungs: Other (respirations are unlabored with symmetric chest rise) Abdomen: Other (abdomen is distended and tender) Extremities: Normal pulses Neuro: Strength at 5/5 X4 ext, Sensation intact Psych/Mental Status: Mental status NL, Mood NL MUSCULOSKELETAL: Other (her right total knee arthroplasty incision is healing well. She is stave machine tender to palpation around her anterior knee.) Vitals VITALS Vital Signs Date Time Temp Pulse Resp B/P (MAP) Pulse Ox O2 Delivery O2 Flow Rate FiO2 12/21/16 07:00 98.6 83 18 134/75 (94) 97 Nasal Cannula 2.0 98.6 Labs Labs Laboratory Tests Test 12/20/16 18:18 12/20/16 18:25 12/20/16 19:35 12/20/16 22:45 O2 Saturation 95 % (92-99) Arterial Blood pH 7.41 (7.35-7.45) Arterial Blood pCO2 at Patient Temp 39 mmHg (35-46) Arterial Blood pO2 at Patient Temp 84 mmHg (65-108) Arterial Blood HCO3 24 mmol/L (21-28) Arterial Blood Base Excess 0 mmol/L (-3-3) FiO2 28 White Blood Count 15.1 x10^3/uL (4.0-11.0) Red Blood Count 3.95 x10^6/uL (3.50-5.40) Hemoglobin 11.2 g/dL (12.0-15.5) Hematocrit 33.8 % (36.0-47.0) Mean Corpuscular Volume 86 fL (79-100) Mean Corpuscular Hemoglobin 28 pg (25-35) Mean Corpuscular Hemoglobin Concent 33 g/dL (31-37) Red Cell Distribution Width 18.3 % (11.5-14.5) Platelet Count 627 x10^3/uL (140-400) Neutrophils (%) (Auto) 81 % (31-73) Lymphocytes (%) (Auto) 9 % (24-48) Monocytes (%) (Auto) 8 % (0-9) Eosinophils (%) (Auto) 0 % (0-3) Basophils (%) (Auto) 1 % (0-3) Neutrophils # (Auto) 12.3 x10^3uL (1.8-7.7) Lymphocytes # (Auto) 1.4 x10^3/uL (1.0-4.8) Monocytes # (Auto) 1.1 x10^3/uL (0.0-1.1) Eosinophils # (Auto) 0.1 x10^3/uL (0.0-0.7) Basophils # (Auto) 0.2 x10^3/uL (0.0-0.2) Prothrombin Time 27.6 SEC (11.7-14.0) Prothromb Time International Ratio 2.8 (0.8-1.1) Activated Partial Thromboplast Time 41 SEC (24-38) Sodium Level 139 mmol/L (136-145) Potassium Level 4.0 mmol/L (3.5-5.1) Chloride Level 103 mmol/L (98-107) Carbon Dioxide Level 25 mmol/L (21-32) Anion Gap 11 (6-14) Blood Urea Nitrogen 19 mg/dL (7-20) Creatinine 0.8 mg/dL (0.6-1.0) Estimated GFR (Cockcroft-Gault) 70.7 BUN/Creatinine Ratio 24 (6-20) Glucose Level 156 mg/dL (70-99) Lactic Acid Level 0.9 mmol/L (0.4-2.0) Calcium Level 8.9 mg/dL (8.5-10.1) Total Bilirubin 0.3 mg/dL (0.2-1.0) Aspartate Amino Transf (AST/SGOT) 32 U/L (15-37) Alanine Aminotransferase (ALT/SGPT) 39 U/L (14-59) Alkaline Phosphatase 127 U/L (46-116) Total Protein 7.4 g/dL (6.4-8.2) Albumin 2.8 g/dL (3.4-5.0) Albumin/Globulin Ratio 0.6 (1.0-1.7) Lipase 360 U/L (73-393) Stool Occult Blood Negative (NEG) Gastric Fluid Occult Blood Positive (NEG) Test 12/20/16 22:50 12/21/16 04:12/21/16 04:50 Creatine Kinase 82 U/L (26-192) Creatine Kinase MB (Mass) 1.6 ng/mL (0.0-3.6) Creatine Kinase MB Relative Index 2.0 % (0-4) Troponin I Quantitative < 0.017 ng/mL (0.000-0.055) White Blood Count 11.5 x10^3/uL (4.0-11.0) Red Blood Count 3.19 x10^6/uL (3.50-5.40) Hemoglobin 9.3 g/dL (12.0-15.5) Hematocrit 27.8 % (36.0-47.0) Mean Corpuscular Volume 87 fL (79-100) Mean Corpuscular Hemoglobin 29 pg (25-35) Mean Corpuscular Hemoglobin Concent 33 g/dL (31-37) Red Cell Distribution Width 18.8 % (11.5-14.5) Platelet Count 539 x10^3/uL (140-400) Neutrophils (%) (Auto) 63 % (31-73) Lymphocytes (%) (Auto) 23 % (24-48) Monocytes (%) (Auto) 11 % (0-9) Eosinophils (%) (Auto) 1 % (0-3) Basophils (%) (Auto) 1 % (0-3) Neutrophils # (Auto) 7.3 x10^3uL (1.8-7.7) Lymphocytes # (Auto) 2.7 x10^3/uL (1.0-4.8) Monocytes # (Auto) 1.3 x10^3/uL (0.0-1.1) Eosinophils # (Auto) 0.1 x10^3/uL (0.0-0.7) Basophils # (Auto) 0.1 x10^3/uL (0.0-0.2) Sodium Level 140 mmol/L (136-145) Potassium Level 3.7 mmol/L (3.5-5.1) Chloride Level 106 mmol/L (98-107) Carbon Dioxide Level 28 mmol/L (21-32) Anion Gap 6 (6-14) Blood Urea Nitrogen 14 mg/dL (7-20) Creatinine 0.7 mg/dL (0.6-1.0) Estimated GFR (Cockcroft-Gault) 82.5 Glucose Level 121 mg/dL (70-99) Calcium Level 8.0 mg/dL (8.5-10.1) Urine Collection Type Unknown Urine Color Yellow Urine Clarity Clear Urine pH 7.0 Urine Specific [place] 1.020 Urine Protein Negative mg/dL (NEG-TRACE) Urine Glucose (UA) Negative mg/dL (NEG) Urine Ketones (Stick) Negative mg/dL (NEG) Urine Blood Negative (NEG) Urine Nitrite Negative (NEG) Urine Bilirubin Negative (NEG) Urine Urobilinogen Dipstick 0.2 mg/dL (0.2 mg/dL) Urine Leukocyte Esterase Negative (NEG) Urine RBC Occ /HPF (0-2) Urine WBC 1-4 /HPF (0-4) Urine Squamous Epithelial Cells Mod /LPF Urine Bacteria Few /HPF (0-FEW) Urine Mucus Slight /LPF Laboratory Tests Test 12/20/16 18:18 12/20/16 18:25 12/20/16 19:35 12/20/16 22:45 O2 Saturation 95 % (92-99) Arterial Blood pH 7.41 (7.35-7.45) Arterial Blood pCO2 at Patient Temp 39 mmHg (35-46) Arterial Blood pO2 at Patient Temp 84 mmHg (65-108) Arterial Blood HCO3 24 mmol/L (21-28) Arterial Blood Base Excess 0 mmol/L (-3-3) FiO2 28 White Blood Count 15.1 x10^3/uL (4.0-11.0) Red Blood Count 3.95 x10^6/uL (3.50-5.40) Hemoglobin 11.2 g/dL (12.0-15.5) Hematocrit 33.8 % (36.0-47.0) Mean Corpuscular Volume 86 fL (79-100) Mean Corpuscular Hemoglobin 28 pg (25-35) Mean Corpuscular Hemoglobin Concent 33 g/dL (31-37) Red Cell Distribution Width 18.3 % (11.5-14.5) Platelet Count 627 x10^3/uL (140-400) Neutrophils (%) (Auto) 81 % (31-73) Lymphocytes (%) (Auto) 9 % (24-48) Monocytes (%) (Auto) 8 % (0-9) Eosinophils (%) (Auto) 0 % (0-3) Basophils (%) (Auto) 1 % (0-3) Neutrophils # (Auto) 12.3 x10^3uL (1.8-7.7) Lymphocytes # (Auto) 1.4 x10^3/uL (1.0-4.8) Monocytes # (Auto) 1.1 x10^3/uL (0.0-1.1) Eosinophils # (Auto) 0.1 x10^3/uL (0.0-0.7) Basophils # (Auto) 0.2 x10^3/uL (0.0-0.2) Prothrombin Time 27.6 SEC (11.7-14.0) Prothromb Time International Ratio 2.8 (0.8-1.1) Activated Partial Thromboplast Time 41 SEC (24-38) Sodium Level 139 mmol/L (136-145) Potassium Level 4.0 mmol/L (3.5-5.1) Chloride Level 103 mmol/L (98-107) Carbon Dioxide Level 25 mmol/L (21-32) Anion Gap 11 (6-14) Blood Urea Nitrogen 19 mg/dL (7-20) Creatinine 0.8 mg/dL (0.6-1.0) Estimated GFR (Cockcroft-Gault) 70.7 BUN/Creatinine Ratio 24 (6-20) Glucose Level 156 mg/dL (70-99) Lactic Acid Level 0.9 mmol/L (0.4-2.0) Calcium Level 8.9 mg/dL (8.5-10.1) Total Bilirubin 0.3 mg/dL (0.2-1.0) Aspartate Amino Transf (AST/SGOT) 32 U/L (15-37) Alanine Aminotransferase (ALT/SGPT) 39 U/L (14-59) Alkaline Phosphatase 127 U/L (46-116) Total Protein 7.4 g/dL (6.4-8.2) Albumin 2.8 g/dL (3.4-5.0) Albumin/Globulin Ratio 0.6 (1.0-1.7) Lipase 360 U/L (73-393) Stool Occult Blood Negative (NEG) Gastric Fluid Occult Blood Positive (NEG) Test 12/20/16 22:50 12/21/16 04:25 12/21/16 04:50 Creatine Kinase 82 U/L (26-192) Creatine Kinase MB (Mass) 1.6 ng/mL (0.0-3.6) Creatine Kinase MB Relative Index 2.0 % (0-4) Troponin I Quantitative < 0.017 ng/mL (0.000-0.055) White Blood Count 11.5 x10^3/uL (4.0-11.0) Red Blood Count 3.19 x10^6/uL (3.50-5.40) Hemoglobin 9.3 g/dL (12.0-15.5) Hematocrit 27.8 % (36.0-47.0) Mean Corpuscular Volume 87 fL (79-100) Mean Corpuscular Hemoglobin 29 pg (25-35) Mean Corpuscular Hemoglobin Concent 33 g/dL (31-37) Red Cell Distribution Width 18.8 % (11.5-14.5) Platelet Count 539 x10^3/uL (140-400) Neutrophils (%) (Auto) 63 % (31-73) Lymphocytes (%) (Auto) 23 % (24-48) Monocytes (%) (Auto) 11 % (0-9) Eosinophils (%) (Auto) 1 % (0-3) Basophils (%) (Auto) 1 % (0-3) Neutrophils # (Auto) 7.3 x10^3uL (1.8-7.7) Lymphocytes # (Auto) 2.7 x10^3/uL (1.0-4.8) Monocytes # (Auto) 1.3 x10^3/uL (0.0-1.1) Eosinophils # (Auto) 0.1 x10^3/uL (0.0-0.7) Basophils # (Auto) 0.1 x10^3/uL (0.0-0.2) Sodium Level 140 mmol/L (136-145) Potassium Level 3.7 mmol/L (3.5-5.1) Chloride Level 106 mmol/L (98-107) Carbon Dioxide Level 28 mmol/L (21-32) Anion Gap 6 (6-14) Blood Urea Nitrogen 14 mg/dL (7-20) Creatinine 0.7 mg/dL (0.6-1.0) Estimated GFR (Cockcroft-Gault) 82.5 Glucose Level 121 mg/dL (70-99) Calcium Level 8.0 mg/dL (8.5-10.1) Urine Collection Type Unknown Urine Color Yellow Urine Clarity Clear Urine pH 7.0 Urine Specific [place] 1.020 Urine Protein Negative mg/dL (NEG-TRACE) Urine Glucose (UA) Negative mg/dL (NEG) Urine Ketones (Stick) Negative mg/dL (NEG) Urine Blood Negative (NEG) Urine Nitrite Negative (NEG) Urine Bilirubin Negative (NEG) Urine Urobilinogen Dipstick 0.2 mg/dL (0.2 mg/dL) Urine Leukocyte Esterase Negative (NEG) Urine RBC Occ /HPF (0-2) Urine WBC 1-4 /HPF (0-4) Urine Squamous Epithelial Cells Mod /LPF Urine Bacteria Few /HPF (0-FEW) Urine Mucus Slight /LPF Assessment/Plan Assessment/Plan Small bowel obstruction Right total knee arthroplasty recently. I do think she would benefit from some physical therapy. She can weight-bear as tolerated. PT would be helpful, even if she can only do it supine in while lying down. I would recommend Lovenox 40 mg daily. AIDAN ROMO II, MD Dec 21, 2016 09:19
--- NOTE | 2016-12-21 09:33 | RAD ---
Acute abdomen series with chest, 3 views, 12/20/2016: History: Vomiting, abdominal distention There is mild gaseous distention of several small bowel loops in the central abdomen. A small amount of colonic gas is present. No free air is seen in the abdomen. There are surgical clips in the abdomen and pelvis. Spinal stimulator leads extend into the lower thoracic spinal canal. There are associated electronic devices projected over the left upper pelvis and right mid abdomen. Surgical fixation screws and rods are present in the lower lumbar spine. The heart is at the upper limits of normal in size. The pulmonary vascularity is normal. There is calcific plaquing of the aorta. No pulmonary infiltrates are seen. There is no evidence of pleural fluid. IMPRESSION: 1. Postsurgical changes as described above. 2. Mild gaseous distention of small bowel loops raising the possibility of small bowel obstruction. Note: The findings were called to personnel in the [facility] ER at 9:30 AM on 12/21/2016.
[2016-12-21] MEDS: AMINO AC 3%/ELECTROLYTE/GLYCER 1,000 ML IV SCH (09:56)
[2016-12-21] MEDS: LEVOTHYROXINE SODIUM 25 MCG in IV NORMAL SALINE 50ML 5 ML IVP SCH (09:57)
--- NOTE | 2016-12-21 10:06 | EKG ---
[facility] [address] [place] [id number] Test Date: 2016-12-20 Test Time: 17:58:56 Pat Name: RC MCMILLAN Department: Room: 406 Gender: F [employer] Clerk: : [id number] Requested By: SANGEETA BARKLEY Order Number: [id number] Reading MD: Alberto Carranza Measurements Intervals [place] Rate: 96 P: -24 [place]: 124 QRS: -76 QRSD: 98 T: 56 QT: 344 QTc: 435 Interpretive Statements SINUS RHYTHM ABNORMAL LEFT AXIS DEVIATION R-S TRANSITION ZONE IN V LEADS DISPLACED TO THE LEFT LEFT ANTERIOR FASCICULAR BLOCK NON-SPECIFIC ST/T CHANGES Electronically Signed On 12-26-2016 14:20:57 CDT by Alberto Carranza
[2016-12-21 11:00] VITALS: BP 139/76
[2016-12-21] MEDS ORDERED: ONDANSETRON PF 4 MG/2 ML VIAL. IV PRN (11:36)
--- NOTE | 2016-12-21 11:42 | PDOC ---
PROGRESS NOTES Chief Complaint Chief Complaint 1. BOwel obstruction, indwelling NGT with drainage 2. Mult abd sxs, (hernia repair, yvonne/pyloropasty?) 3. SIRS POA no sepsis 4. Recent Rt knee TKA 5. Diarrhea, better History of Present Illness History of Present Illness LOts of NGT drainage - 300cc so far (400cc from ER) NGT hurts Pulled it out last night - needed mittens- does not remember the events last night NAusea better CUrrent pain regimen working Abd tympanitic,bloated, no guarding Lytes ok On procalamine BP ok WBC 11 from 15 on admit Ortho note reviewed, recommended lovenox 40 SQ PLAN: HUrrican spray qdaily prn Await GS rounds PT/OT Keep lovenox 40 SQ - appreciate ortho Keep NGT - still lots of drainage Dw family at bedside and pt Vitals Vitals Vital Signs Date Time Temp Pulse Resp B/P (MAP) Pulse Ox O2 Delivery O2 Flow Rate FiO2 12/21/16 11:00 98.2 86 18 139/76 (97) 98 Nasal Cannula 2.0 98.2 Physical Exam General: Alert, Oriented X3, Other (she is ill-appearing) Heart: Regular rate, Normal S1 Lungs: Clear, Other Abdomen: Soft, Other (abdomen is distended and tender) Extremities: Normal pulses Labs LABS Laboratory Tests Test 12/20/16 18:18 12/20/16 18:25 12/20/16 19:35 12/20/16 22:45 O2 Saturation 95 % (92-99) Arterial Blood pH 7.41 (7.35-7.45) Arterial Blood pCO2 at Patient Temp 39 mmHg (35-46) Arterial Blood pO2 at Patient Temp 84 mmHg (65-108) Arterial Blood HCO3 24 mmol/L (21-28) Arterial Blood Base Excess 0 mmol/L (-3-3) FiO2 28 White Blood Count 15.1 x10^3/uL (4.0-11.0) Red Blood Count 3.95 x10^6/uL (3.50-5.40) Hemoglobin 11.2 g/dL (12.0-15.5) Hematocrit 33.8 % (36.0-47.0) Mean Corpuscular Volume 86 fL (79-100) Mean Corpuscular Hemoglobin 28 pg (25-35) Mean Corpuscular Hemoglobin Concent 33 g/dL (31-37) Red Cell Distribution Width 18.3 % (11.5-14.5) Platelet Count 627 x10^3/uL (140-400) Neutrophils (%) (Auto) 81 % (31-73) Lymphocytes (%) (Auto) 9 % (24-48) Monocytes (%) (Auto) 8 % (0-9) Eosinophils (%) (Auto) 0 % (0-3) Basophils (%) (Auto) 1 % (0-3) Neutrophils # (Auto) 12.3 x10^3uL (1.8-7.7) Lymphocytes # (Auto) 1.4 x10^3/uL (1.0-4.8) Monocytes # (Auto) 1.1 x10^3/uL (0.0-1.1) Eosinophils # (Auto) 0.1 x10^3/uL (0.0-0.7) Basophils # (Auto) 0.2 x10^3/uL (0.0-0.2) Prothrombin Time 27.6 SEC (11.7-14.0) Prothromb Time International Ratio 2.8 (0.8-1.1) Activated Partial Thromboplast Time 41 SEC (24-38) Sodium Level 139 mmol/L (136-145) Potassium Level 4.0 mmol/L (3.5-5.1) Chloride Level 103 mmol/L (98-107) Carbon Dioxide Level 25 mmol/L (21-32) Anion Gap 11 (6-14) Blood Urea Nitrogen 19 mg/dL (7-20) Creatinine 0.8 mg/dL (0.6-1.0) Estimated GFR (Cockcroft-Gault) 70.7 BUN/Creatinine Ratio 24 (6-20) Glucose Level 156 mg/dL (70-99) Lactic Acid Level 0.9 mmol/L (0.4-2.0) Calcium Level 8.9 mg/dL (8.5-10.1) Total Bilirubin 0.3 mg/dL (0.2-1.0) Aspartate Amino Transf (AST/SGOT) 32 U/L (15-37) Alanine Aminotransferase (ALT/SGPT) 39 U/L (14-59) Alkaline Phosphatase 127 U/L (46-116) Total Protein 7.4 g/dL (6.4-8.2) Albumin 2.8 g/dL (3.4-5.0) Albumin/Globulin Ratio 0.6 (1.0-1.7) Lipase 360 U/L (73-393) Stool Occult Blood Negative (NEG) Gastric Fluid Occult Blood Positive (NEG) Test 12/20/16 22:50 12/21/16 04:25 12/21/16 04:50 Creatine Kinase 82 U/L (26-192) Creatine Kinase MB (Mass) 1.6 ng/mL (0.0-3.6) Creatine Kinase MB Relative Index 2.0 % (0-4) Troponin I Quantitative < 0.017 ng/mL (0.000-0.055) White Blood Count 11.5 x10^3/uL (4.0-11.0) Red Blood Count 3.19 x10^6/uL (3.50-5.40) Hemoglobin 9.3 g/dL (12.0-15.5) Hematocrit 27.8 % (36.0-47.0) Mean Corpuscular Volume 87 fL (79-100) Mean Corpuscular Hemoglobin 29 pg (25-35) Mean Corpuscular Hemoglobin Concent 33 g/dL (31-37) Red Cell Distribution Width 18.8 % (11.5-14.5) Platelet Count 539 x10^3/uL (140-400) Neutrophils (%) (Auto) 63 % (31-73) Lymphocytes (%) (Auto) 23 % (24-48) Monocytes (%) (Auto) 11 % (0-9) Eosinophils (%) (Auto) 1 % (0-3) Basophils (%) (Auto) 1 % (0-3) Neutrophils # (Auto) 7.3 x10^3uL (1.8-7.7) Lymphocytes # (Auto) 2.7 x10^3/uL (1.0-4.8) Monocytes # (Auto) 1.3 x10^3/uL (0.0-1.1) Eosinophils # (Auto) 0.1 x10^3/uL (0.0-0.7) Basophils # (Auto) 0.1 x10^3/uL (0.0-0.2) Sodium Level 140 mmol/L (136-145) Potassium Level 3.7 mmol/L (3.5-5.1) Chloride Level 106 mmol/L (98-107) Carbon Dioxide Level 28 mmol/L (21-32) Anion Gap 6 (6-14) Blood Urea Nitrogen 14 mg/dL (7-20) Creatinine 0.7 mg/dL (0.6-1.0) Estimated GFR (Cockcroft-Gault) 82.5 Glucose Level 121 mg/dL (70-99) Calcium Level 8.0 mg/dL (8.5-10.1) Urine Collection Type Unknown Urine Color Yellow Urine Clarity Clear Urine pH 7.0 Urine Specific [place] 1.020 Urine Protein Negative mg/dL (NEG-TRACE) Urine Glucose (UA) Negative mg/dL (NEG) Urine Ketones (Stick) Negative mg/dL (NEG) Urine Blood Negative (NEG) Urine Nitrite Negative (NEG) Urine Bilirubin Negative (NEG) Urine Urobilinogen Dipstick 0.2 mg/dL (0.2 mg/dL) Urine Leukocyte Esterase Negative (NEG) Urine RBC Occ /HPF (0-2) Urine WBC 1-4 /HPF (0-4) Urine Squamous Epithelial Cells Mod /LPF Urine Bacteria Few /HPF (0-FEW) Urine Mucus Slight /LPF Review of Systems Review of Systems abd pain, nausea, thirsty, dry mouth Comment Review of Relevant I have reviewed the following items néstor (where applicable) has been applied. Labs Laboratory Tests Test 12/20/16 18:18 12/20/16 18:25 12/20/16 19:35 12/20/16 22:45 O2 Saturation 95 % (92-99) Arterial Blood pH 7.41 (7.35-7.45) Arterial Blood pCO2 at Patient Temp 39 mmHg (35-46) Arterial Blood pO2 at Patient Temp 84 mmHg (65-108) Arterial Blood HCO3 24 mmol/L (21-28) Arterial Blood Base Excess 0 mmol/L (-3-3) FiO2 28 White Blood Count 15.1 x10^3/uL (4.0-11.0) Red Blood Count 3.95 x10^6/uL (3.50-5.40) Hemoglobin 11.2 g/dL (12.0-15.5) Hematocrit 33.8 % (36.0-47.0) Mean Corpuscular Volume 86 fL (79-100) Mean Corpuscular Hemoglobin 28 pg (25-35) Mean Corpuscular Hemoglobin Concent 33 g/dL (31-37) Red Cell Distribution Width 18.3 % (11.5-14.5) Platelet Count 627 x10^3/uL (140-400) Neutrophils (%) (Auto) 81 % (31-73) Lymphocytes (%) (Auto) 9 % (24-48) Monocytes (%) (Auto) 8 % (0-9) Eosinophils (%) (Auto) 0 % (0-3) Basophils (%) (Auto) 1 % (0-3) Neutrophils # (Auto) 12.3 x10^3uL (1.8-7.7) Lymphocytes # (Auto) 1.4 x10^3/uL (1.0-4.8) Monocytes # (Auto) 1.1 x10^3/uL (0.0-1.1) Eosinophils # (Auto) 0.1 x10^3/uL (0.0-0.7) Basophils # (Auto) 0.2 x10^3/uL (0.0-0.2) Prothrombin Time 27.6 SEC (11.7-14.0) Prothromb Time International Ratio 2.8 (0.8-1.1) Activated Partial Thromboplast Time 41 SEC (24-38) Sodium Level 139 mmol/L (136-145) Potassium Level 4.0 mmol/L (3.5-5.1) Chloride Level 103 mmol/L (98-107) Carbon Dioxide Level 25 mmol/L (21-32) Anion Gap 11 (6-14) Blood Urea Nitrogen 19 mg/dL (7-20) Creatinine 0.8 mg/dL (0.6-1.0) Estimated GFR (Cockcroft-Gault) 70.7 BUN/Creatinine Ratio 24 (6-20) Glucose Level 156 mg/dL (70-99) Lactic Acid Level 0.9 mmol/L (0.4-2.0) Calcium Level 8.9 mg/dL (8.5-10.1) Total Bilirubin 0.3 mg/dL (0.2-1.0) Aspartate Amino Transf (AST/SGOT) 32 U/L (15-37) Alanine Aminotransferase (ALT/SGPT) 39 U/L (14-59) Alkaline Phosphatase 127 U/L (46-116) Total Protein 7.4 g/dL (6.4-8.2) Albumin 2.8 g/dL (3.4-5.0) Albumin/Globulin Ratio 0.6 (1.0-1.7) Lipase 360 U/L (73-393) Stool Occult Blood Negative (NEG) Gastric Fluid Occult Blood Positive (NEG) Test 12/20/16 22:50 12/21/16 04:25 12/21/16 04:50 Creatine Kinase 82 U/L (26-192) Creatine Kinase MB (Mass) 1.6 ng/mL (0.0-3.6) Creatine Kinase MB Relative Index 2.0 % (0-4) Troponin I Quantitative < 0.017 ng/mL (0.000-0.055) White Blood Count 11.5 x10^3/uL (4.0-11.0) Red Blood Count 3.19 x10^6/uL (3.50-5.40) Hemoglobin 9.3 g/dL (12.0-15.5) Hematocrit 27.8 % (36.0-47.0) Mean Corpuscular Volume 87 fL (79-100) Mean Corpuscular Hemoglobin 29 pg (25-35) Mean Corpuscular Hemoglobin Concent 33 g/dL (31-37) Red Cell Distribution Width 18.8 % (11.5-14.5) Platelet Count 539 x10^3/uL (140-400) Neutrophils (%) (Auto) 63 % (31-73) Lymphocytes (%) (Auto) 23 % (24-48) Monocytes (%) (Auto) 11 % (0-9) Eosinophils (%) (Auto) 1 % (0-3) Basophils (%) (Auto) 1 % (0-3) Neutrophils # (Auto) 7.3 x10^3uL (1.8-7.7) Lymphocytes # (Auto) 2.7 x10^3/uL (1.0-4.8) Monocytes # (Auto) 1.3 x10^3/uL (0.0-1.1) Eosinophils # (Auto) 0.1 x10^3/uL (0.0-0.7) Basophils # (Auto) 0.1 x10^3/uL (0.0-0.2) Sodium Level 140 mmol/L (136-145) Potassium Level 3.7 mmol/L (3.5-5.1) Chloride Level 106 mmol/L (98-107) Carbon Dioxide Level 28 mmol/L (21-32) Anion Gap 6 (6-14) Blood Urea Nitrogen 14 mg/dL (7-20) Creatinine 0.7 mg/dL (0.6-1.0) Estimated GFR (Cockcroft-Gault) 82.5 Glucose Level 121 mg/dL (70-99) Calcium Level 8.0 mg/dL (8.5-10.1) Urine Collection Type Unknown Urine Color Yellow Urine Clarity Clear Urine pH 7.0 Urine Specific [place] 1.020 Urine Protein Negative mg/dL (NEG-TRACE) Urine Glucose (UA) Negative mg/dL (NEG) Urine Ketones (Stick) Negative mg/dL (NEG) Urine Blood Negative (NEG) Urine Nitrite Negative (NEG) Urine Bilirubin Negative (NEG) Urine Urobilinogen Dipstick 0.2 mg/dL (0.2 mg/dL) Urine Leukocyte Esterase Negative (NEG) Urine RBC Occ /HPF (0-2) Urine WBC 1-4 /HPF (0-4) Urine Squamous Epithelial Cells Mod /LPF Urine Bacteria Few /HPF (0-FEW) Urine Mucus Slight /LPF Laboratory Tests Test 12/20/16 18:18 12/20/16 18:25 12/20/16 19:35 12/20/16 22:45 O2 Saturation 95 % (92-99) Arterial Blood pH 7.41 (7.35-7.45) Arterial Blood pCO2 at Patient Temp 39 mmHg (35-46) Arterial Blood pO2 at Patient Temp 84 mmHg (65-108) Arterial Blood HCO3 24 mmol/L (21-28) Arterial Blood Base Excess 0 mmol/L (-3-3) FiO2 28 White Blood Count 15.1 x10^3/uL (4.0-11.0) Red Blood Count 3.95 x10^6/uL (3.50-5.40) Hemoglobin 11.2 g/dL (12.0-15.5) Hematocrit 33.8 % (36.0-47.0) Mean Corpuscular Volume 86 fL (79-100) Mean Corpuscular Hemoglobin 28 pg (25-35) Mean Corpuscular Hemoglobin Concent 33 g/dL (31-37) Red Cell Distribution Width 18.3 % (11.5-14.5) Platelet Count 627 x10^3/uL (140-400) Neutrophils (%) (Auto) 81 % (31-73) Lymphocytes (%) (Auto) 9 % (24-48) Monocytes (%) (Auto) 8 % (0-9) Eosinophils (%) (Auto) 0 % (0-3) Basophils (%) (Auto) 1 % (0-3) Neutrophils # (Auto) 12.3 x10^3uL (1.8-7.7) Lymphocytes # (Auto) 1.4 x10^3/uL (1.0-4.8) Monocytes # (Auto) 1.1 x10^3/uL (0.0-1.1) Eosinophils # (Auto) 0.1 x10^3/uL (0.0-0.7) Basophils # (Auto) 0.2 x10^3/uL (0.0-0.2) Prothrombin Time 27.6 SEC (11.7-14.0) Prothromb Time International Ratio 2.8 (0.8-1.1) Activated Partial Thromboplast Time 41 SEC (24-38) Sodium Level 139 mmol/L (136-145) Potassium Level 4.0 mmol/L (3.5-5.1) Chloride Level 103 mmol/L (98-107) Carbon Dioxide Level 25 mmol/L (21-32) Anion Gap 11 (6-14) Blood Urea Nitrogen 19 mg/dL (7-20) Creatinine 0.8 mg/dL (0.6-1.0) Estimated GFR (Cockcroft-Gault) 70.7 BUN/Creatinine Ratio 24 (6-20) Glucose Level 156 mg/dL (70-99) Lactic Acid Level 0.9 mmol/L (0.4-2.0) Calcium Level 8.9 mg/dL (8.5-10.1) Total Bilirubin 0.3 mg/dL (0.2-1.0) Aspartate Amino Transf (AST/SGOT) 32 U/L (15-37) Alanine Aminotransferase (ALT/SGPT) 39 U/L (14-59) Alkaline Phosphatase 127 U/L (46-116) Total Protein 7.4 g/dL (6.4-8.2) Albumin 2.8 g/dL (3.4-5.0) Albumin/Globulin Ratio 0.6 (1.0-1.7) Lipase 360 U/L (73-393) Stool Occult Blood Negative (NEG) Gastric Fluid Occult Blood Positive (NEG) Test 12/20/16 22:50 12/21/16 04:25 12/21/16 04:50 Creatine Kinase 82 U/L (26-192) Creatine Kinase MB (Mass) 1.6 ng/mL (0.0-3.6) Creatine Kinase MB Relative Index 2.0 % (0-4) Troponin I Quantitative < 0.017 ng/mL (0.000-0.055) White Blood Count 11.5 x10^3/uL (4.0-11.0) Red Blood Count 3.19 x10^6/uL (3.50-5.40) Hemoglobin 9.3 g/dL (12.0-15.5) Hematocrit 27.8 % (36.0-47.0) Mean Corpuscular Volume 87 fL (79-100) Mean Corpuscular Hemoglobin 29 pg (25-35) Mean Corpuscular Hemoglobin Concent 33 g/dL (31-37) Red Cell Distribution Width 18.8 % (11.5-14.5) Platelet Count 539 x10^3/uL (140-400) Neutrophils (%) (Auto) 63 % (31-73) Lymphocytes (%) (Auto) 23 % (24-48) Monocytes (%) (Auto) 11 % (0-9) Eosinophils (%) (Auto) 1 % (0-3) Basophils (%) (Auto) 1 % (0-3) Neutrophils # (Auto) 7.3 x10^3uL (1.8-7.7) Lymphocytes # (Auto) 2.7 x10^3/uL (1.0-4.8) Monocytes # (Auto) 1.3 x10^3/uL (0.0-1.1) Eosinophils # (Auto) 0.1 x10^3/uL (0.0-0.7) Basophils # (Auto) 0.1 x10^3/uL (0.0-0.2) Sodium Level 140 mmol/L (136-145) Potassium Level 3.7 mmol/L (3.5-5.1) Chloride Level 106 mmol/L (98-107) Carbon Dioxide Level 28 mmol/L (21-32) Anion Gap 6 (6-14) Blood Urea Nitrogen 14 mg/dL (7-20) Creatinine 0.7 mg/dL (0.6-1.0) Estimated GFR (Cockcroft-Gault) 82.5 Glucose Level 121 mg/dL (70-99) Calcium Level 8.0 mg/dL (8.5-10.1) Urine Collection Type Unknown Urine Color Yellow Urine Clarity Clear Urine pH 7.0 Urine Specific [place] 1.020 Urine Protein Negative mg/dL (NEG-TRACE) Urine Glucose (UA) Negative mg/dL (NEG) Urine Ketones (Stick) Negative mg/dL (NEG) Urine Blood Negative (NEG) Urine Nitrite Negative (NEG) Urine Bilirubin Negative (NEG) Urine Urobilinogen Dipstick 0.2 mg/dL (0.2 mg/dL) Urine Leukocyte Esterase Negative (NEG) Urine RBC Occ /HPF (0-2) Urine WBC 1-4 /HPF (0-4) Urine Squamous Epithelial Cells Mod /LPF Urine Bacteria Few /HPF (0-FEW) Urine Mucus Slight /LPF Medications Current Medications Sodium Chloride 1,000 ml @ 1,000 mls/hr Q1H IV Last administered on 12/20/16 18:31; Start 12/20/16 at 18:18; Stop 12/20/16 at 19:17; Status DC Ondansetron HCl (Zofran) 4 mg 1X ONCE IV Last administered on 12/20/16 18:35 ; Start 12/20/16 at 18:30; Stop 12/20/16 at 18:31; Status DC Famotidine (Pepcid) 20 mg 1X ONCE IVP Last administered on 12/20/16 18:38; Start 12/20/16 at 18:30; Stop 12/20/16 at 18:31; Status DC Morphine Sulfate 5 mg 1X ONCE IV Last administered on 12/20/16 20:48; Start 12/20/16 at 20:30; Stop 12/20/16 at 20:31; Status DC Morphine Sulfate 4 mg PRN Q2HR PRN IV PAIN; Start 12/20/16 at 20:45; Stop 12/21 at 10:37; Status DC Ondansetron HCl (Zofran) 4 mg PRN Q6HRS PRN IV NAUSEA/VOMITING Last administered on 12/20/16 20:51; Start 12/20/16 at 20:45 Prochlorperazine Edisylate (Compazine) 10 mg TID PRN IV n/v; Start 12/20/16 at 20:45; Status UNV Enoxaparin Sodium (Lovenox 40mg Syringe) 40 mg QHS SQ ; Start 12/20/16 at 21:00 Lorazepam (Ativan) 1 mg PRN Q4HRS PRN IV ANXIETY / AGITATION Last administered on 12/20/16 23:13; Start 12/20/16 at 20:45 Diphenhydramine HCl (Benadryl) 25 mg PRN QHS PRN IVP sleep; Start 12/20/16 at 20:45 Amino Acids/ Glycerin/ Electrolytes 1,000 ml @ 80 mls/hr [id number] IV Last administered on 12/21/16 09:56; Start 12/20/16 at 20:45 Ondansetron HCl (Zofran) 4 mg PRN Q8HRS PRN IV NAUSEA/VOMITING; Start 12/20/16 at 20:45; Stop 12/21/16 at 20:44 Fentanyl Citrate (Fentanyl 2ml Vial) 50 mcg PRN Q2HR PRN IV PAIN Last administered on 12/21/16 10:45; Start 12/20/16 at 20:45; Stop 12/21/16 at 20:44 Sodium Chloride 1,000 ml @ 100 mls/hr Q10H IV Last administered on 12/21/16 06:52; Start 12/20/16 at 20:40; Stop 12/21/16 at 20:39 Acetaminophen (Tylenol) 650 mg PRN Q4HRS PRN PO FEVER; Start 12/20/16 at 20:45 ; Stop 12/21/16 at 20:44 Levothyroxine Sodium 25 mcg/ Sodium Chloride 5 ml @ 100 mls/hr DAILY IVP Last administered on 12/21/16 09:57; Start 12/21/16 at 09:00 Nitroglycerin (Nitrostat) 0.4 mg PRN Q5MIN PRN SL X 3 DOSES FOR CHEST PAIN Last administered on 12/20/16 22:57; Start 12/20/16 at 22:00 Throat Lozenges (Chloraseptic) 1 spray PRN Q2HR PRN PO SORE THROAT Last administered on 12/21/16 08:32; Start 12/21/16 at 08:00 Morphine Sulfate 4 mg PRN Q2HR PRN IV PAIN; Start 12/21/16 at 10:45 Active Scripts Active Reported Dulcolax (Bisacodyl) 10 Mg Supp.rect 10 Mg RC PRN DAILY PRN Fleet Enema (Na Phos,M-B/Na Phos,Di-Ba) 133 Ml Enema 1 Each RC DAILY PRN Tramadol Hcl 50 Mg Tablet 2 Tab PO PRN Q3HRS PRN Tramadol Hcl 50 Mg Tablet 1 Tab PO PRN Q6HRS Mucinex (Guaifenesin) 600 Mg Tablet.er 1 Tab PO BID PRN Coumadin (Warfarin Sodium) 5 Mg Tablet 1 Tab PO DAILY Protonix (Pantoprazole Sodium) 40 Mg Tablet.dr 1 Tab PO DAILY Levothyroxine Sodium 50 Mcg Tablet 1 Tab PO DAILY Senna Plus Tablet (Sennosides/Docusate Sodium) 1 Each Tablet 1 Tab PO DAILY Vitamin D (Cholecalciferol (Vitamin D3)) 2,000 Unit Capsule 2,000 Unit PO TID Cyclobenzaprine Hcl 10 Mg Tablet 10 Mg PO TID Lortab 5-325 mg Tablet (Hydrocodone/Acetaminophen) 1 Each Tablet 1 Tab PO PRN Q6HRS PRN Fioricet 50-300-40 Mg Capsule (Butalb/Acetaminophen/Caffeine) 1 Each Capsule 1 Each PO PRN Q4HRS PRN Gabapentin 100 Mg Capsule 300 Mg PO TID [gi cocktail] 500 Mg PO PRN PRN [Clonidine/Pump] [Fentanyl/Pump] Aspirin 325 Mg Tablet 1 Tab PO DAILY Bupivacaine 0.25% On-Q Pump (Bupivacaine Hcl/Pf) 100 Ml [email or web address] 100 Ml IJ PER PAIN PUMP Alprazolam 0.5 Mg Tab.rapdis 0.5 Mg PO PRN Zofran Odt (Ondansetron) 8 Mg Tab.rapdis 8 Mg PO PRN Ambien (Zolpidem Tartrate) 5 Mg Tablet 5 Mg PO HS Risperdal (Risperidone) 0.5 Mg Tablet 0.5 Mg PO HS [domperadone] 10mg Tablet 20 Mg PO TIDAC Omeprazole 40 Mg Capsule.dr 40 Mg PO BID Zocor (Simvastatin) 20 Mg Tablet 20 Mg PO HS Wellbutrin (Bupropion Hcl) 100 Mg Tablet 150 Mg PO DAILY Levothyroxine Sodium 25 Mcg Tablet 50 Mcg PO DAILY Vitals/I & O Vital Sign - Last 24 Hours 12/20/16 12/20/16 12/20/16 12/20/16 17:55 18:26 18:51 18:58 Temp 99.1 99.1 Pulse 97 94 83 Resp 20 20 B/P (MAP) 138/76 (96) 139/75 (96) 134/72 (92) Pulse Ox 92 94 95 96 O2 Delivery Room Air Nasal Cannula Nasal Cannula Nasal Cannula O2 Flow Rate 2.0 2.0 2.0 12/20/16 12/20/16 12/20/16 12/20/16 19:21 19:51 20:41 21:18 Pulse 84 107 86 B/P (MAP) 138/84 (102) 142/92 (109) 144/79 (100) Pulse Ox 98 98 98 95 O2 Delivery Nasal Cannula Nasal Cannula Nasal Cannula Nasal Cannula O2 Flow Rate 2.0 2.0 2.0 2.0 12/20/16 12/20/16 12/20/16 12/20/16 21:20 21:38 22:08 22:42 Temp 96.6 96.6 Pulse 91 82 Resp 18 18 B/P (MAP) 115/81 (92) 147/75 Pulse Ox 90 96 95 O2 Delivery Nasal Cannula Nasal Cannula Nasal Cannula O2 Flow Rate 2.0 2.0 2.0 12/20/16 12/20/16 12/20/16 12/21/16 22:57 23:00 23:20 03:00 Temp 98.8 98.8 98.8 98.8 Pulse 83 86 84 Resp 18 18 B/P (MAP) 117/68 112/61 (78) 123/81 (95) Pulse Ox 94 95 O2 Delivery Nasal Cannula Nasal Cannula Room Air O2 Flow Rate 2.0 2.0 2.0 12/21/16 12/21/16 12/21/16 12/21/16 05:31 07:00 08:00 11:00 Temp 98.6 98.2 98.6 98.2 Pulse 83 86 Resp 20 18 18 B/P (MAP) 134/75 (94) 139/76 (97) Pulse Ox 95 97 98 O2 Delivery Nasal Cannula Nasal Cannula Nasal Cannula Nasal Cannula O2 Flow Rate 2.0 2.0 2.0 2.0 Intake and Output 12/20/16 12/20/16 12/21/16 15:00 23:00 07:00 Intake Total 1000 ml Balance 1000 ml SANGEETA BARKLEY MD Dec 21, 2016 11:42
[2016-12-21] MEDS ORDERED: BENZOCAINE ONE 20% MUCOSAL SPRAY. MM PRN (11:45)
[2016-12-21] MEDS: MORPHINE SULFATE 4 MG/ML DISP.SYRIN. IV PRN ×2 (12:09→23:46)
--- NOTE | 2016-12-21 12:11 | PDOC2 ---
CONSULT Date of Consult Date of Consult DATE: 12/21/16 TIME: 12:07 Reason for Consult Reason for Consult: possible SBO Referring Physician Referring Physician: Jennifer Identification/Chief Complaint Chief Complaint Nausea, abd pain, hematemesis Problems: Source Source: Caregiver, Chart review, Patient History of Present Illness Reason for Visit: 71 yo F well known, presents with c/o N/V, concern for hematemesis. Recent ortho procedure and rehabbing at longterm. Also noted to have loose stools. Past Medical History Cardiovascular: HTN, Hyperlipidemia Past Surgical History Past Surgical History: Total hip replacement, Total knee replacement, Other ( hernia repair, nissens. pylorolasty, TKA) Family History Family History: No Significant Social History No ALCOHOL: none Drugs: None Current Medications Current Medications Current Medications Sodium Chloride 1,000 ml @ 1,000 mls/hr Q1H IV Last administered on 12/20/16 18:31; Start 12/20/16 at 18:18; Stop 12/20/16 at 19:17; Status DC Ondansetron HCl (Zofran) 4 mg 1X ONCE IV Last administered on 12/20/16 18:35 ; Start 12/20/16 at 18:30; Stop 12/20/16 at 18:31; Status DC Famotidine (Pepcid) 20 mg 1X ONCE IVP Last administered on 12/20/16 18:38; Start 12/20/16 at 18:30; Stop 12/20/16 at 18:31; Status DC Morphine Sulfate 5 mg 1X ONCE IV Last administered on 12/20/16 20:48; Start 12/20/16 at 20:30; Stop 12/20/16 at 20:31; Status DC Morphine Sulfate 4 mg PRN Q2HR PRN IV PAIN; Start 12/20/16 at 20:45; Stop 12/21 at 10:37; Status DC Ondansetron HCl (Zofran) 4 mg PRN Q6HRS PRN IV NAUSEA/VOMITING Last administered on 12/20/16 20:51; Start 12/20/16 at 20:45 Prochlorperazine Edisylate (Compazine) 10 mg TID PRN IV n/v; Start 12/20/16 at 20:45; Status UNV Enoxaparin Sodium (Lovenox 40mg Syringe) 40 mg QHS SQ ; Start 12/20/16 at 21:00 Lorazepam (Ativan) 1 mg PRN Q4HRS PRN IV ANXIETY / AGITATION Last administered on 12/20/16 23:13; Start 12/20/16 at 20:45 Diphenhydramine HCl (Benadryl) 25 mg PRN QHS PRN IVP sleep; Start 12/20/16 at 20:45 Amino Acids/ Glycerin/ Electrolytes 1,000 ml @ 80 mls/hr [id number] IV Last administered on 12/21/16 09:56; Start 12/20/16 at 20:45 Ondansetron HCl (Zofran) 4 mg PRN Q8HRS PRN IV NAUSEA/VOMITING; Start 12/20/16 at 20:45; Stop 12/21/16 at 11:39; Status DC Fentanyl Citrate (Fentanyl 2ml Vial) 50 mcg PRN Q2HR PRN IV PAIN Last administered on 12/21/16 10:45; Start 12/20/16 at 20:45; Stop 12/21/16 at 20:44 Sodium Chloride 1,000 ml @ 100 mls/hr Q10H IV Last administered on 12/21/16 06:52; Start 12/20/16 at 20:40; Stop 12/21/16 at 20:39 Acetaminophen (Tylenol) 650 mg PRN Q4HRS PRN PO FEVER; Start 12/20/16 at 20:45 ; Stop 12/21/16 at 20:44 Levothyroxine Sodium 25 mcg/ Sodium Chloride 5 ml @ 100 mls/hr DAILY IVP Last administered on 12/21/16 09:57; Start 12/21/16 at 09:00 Nitroglycerin (Nitrostat) 0.4 mg PRN Q5MIN PRN SL X 3 DOSES FOR CHEST PAIN Last administered on 12/20/16 22:57; Start 12/20/16 at 22:00 Throat Lozenges (Chloraseptic) 1 spray PRN Q2HR PRN PO SORE THROAT Last administered on 12/21/16 08:32; Start 12/21/16 at 08:00 Morphine Sulfate 4 mg PRN Q2HR PRN IV PAIN; Start 12/21/16 at 10:45 Ondansetron HCl (Zofran) 4 mg PRN Q6HRS PRN IV NAUSEA/VOMITING; Start 12/21/16 at 11:36; Stop 12/22/16 at 11:35 Benzocaine (Hurricaine One) 1 spray PRN DAILY PRN MM pain ; Start 12/21/16 at 11:45 Active Scripts Active Reported Dulcolax (Bisacodyl) 10 Mg Supp.rect 10 Mg RC PRN DAILY PRN Fleet Enema (Na Phos,M-B/Na Phos,Di-Ba) 133 Ml Enema 1 Each RC DAILY PRN Tramadol Hcl 50 Mg Tablet 2 Tab PO PRN Q3HRS PRN Tramadol Hcl 50 Mg Tablet 1 Tab PO PRN Q6HRS Mucinex (Guaifenesin) 600 Mg Tablet.er 1 Tab PO BID PRN Coumadin (Warfarin Sodium) 5 Mg Tablet 1 Tab PO DAILY Protonix (Pantoprazole Sodium) 40 Mg Tablet.dr 1 Tab PO DAILY Levothyroxine Sodium 50 Mcg Tablet 1 Tab PO DAILY Senna Plus Tablet (Sennosides/Docusate Sodium) 1 Each Tablet 1 Tab PO DAILY Vitamin D (Cholecalciferol (Vitamin D3)) 2,000 Unit Capsule 2,000 Unit PO TID Cyclobenzaprine Hcl 10 Mg Tablet 10 Mg PO TID Lortab 5-325 mg Tablet (Hydrocodone/Acetaminophen) 1 Each Tablet 1 Tab PO PRN Q6HRS PRN Fioricet 50-300-40 Mg Capsule (Butalb/Acetaminophen/Caffeine) 1 Each Capsule 1 Each PO PRN Q4HRS PRN Gabapentin 100 Mg Capsule 300 Mg PO TID [gi cocktail] 500 Mg PO PRN PRN [Clonidine/Pump] [Fentanyl/Pump] Aspirin 325 Mg Tablet 1 Tab PO DAILY Bupivacaine 0.25% On-Q Pump (Bupivacaine Hcl/Pf) 100 Ml Els.rn tele.fr 100 Ml IJ PER PAIN PUMP Alprazolam 0.5 Mg Tab.rapdis 0.5 Mg PO PRN Zofran Odt (Ondansetron) 8 Mg Tab.rapdis 8 Mg PO PRN Ambien (Zolpidem Tartrate) 5 Mg Tablet 5 Mg PO HS Risperdal (Risperidone) 0.5 Mg Tablet 0.5 Mg PO HS [domperadone] 10mg Tablet 20 Mg PO TIDAC Omeprazole 40 Mg Capsule.dr 40 Mg PO BID Zocor (Simvastatin) 20 Mg Tablet 20 Mg PO HS Wellbutrin (Bupropion Hcl) 100 Mg Tablet 150 Mg PO DAILY Levothyroxine Sodium 25 Mcg Tablet 50 Mcg PO DAILY Allergies Allergies: Coded Allergies: prochlorperazine edisylate (Verified Allergy, Severe, Anaphylaxis, 12/05/16) prochlorperazine maleate (Verified Allergy, Severe, Anaphylaxis, 12/05/16) adhesive (Verified Allergy, Intermediate, 12/05/16) ciprofloxacin (Verified Allergy, Intermediate, hallucinations, 12/05/16) ciprofloxacin HCl (Verified Allergy, Intermediate, hallucinations, 12/05/16) clindamycin (Verified Allergy, Intermediate, extreme heartburn, 12/05/16) latex (Verified Allergy, Intermediate, 12/05/16) oxycodone (Verified Allergy, Intermediate, 12/05/16) 'HALLUCINATIONS' ROS Review of System pt not providing much history currently, pt's notes severe nausea, more then usual with her gastroparesis Physical Exam General: Alert, Cooperative, No acute distress HEENT: Atraumatic, EOMI Lungs: Normal air movement Abdomen: Soft, Other (mild TTP) Extremities: No clubbing, No edema Skin: No rashes, No breakdown Psych/Mental Status: Mood NL Vitals VITALS Vital Signs Date Time Temp Pulse Resp B/P (MAP) Pulse Ox O2 Delivery O2 Flow Rate FiO2 12/21/16 11:00 98.2 86 18 139/76 (97) 98 Nasal Cannula 2.0 98.2 Labs Labs Laboratory Tests Test 12/20/16 18:18 12/20/16 18:25 12/20/16 19:35 12/20/16 22:45 O2 Saturation 95 % (92-99) Arterial Blood pH 7.41 (7.35-7.45) Arterial Blood pCO2 at Patient Temp 39 mmHg (35-46) Arterial Blood pO2 at Patient Temp 84 mmHg (65-108) Arterial Blood HCO3 24 mmol/L (21-28) Arterial Blood Base Excess 0 mmol/L (-3-3) FiO2 28 White Blood Count 15.1 x10^3/uL (4.0-11.0) Red Blood Count 3.95 x10^6/uL (3.50-5.40) Hemoglobin 11.2 g/dL (12.0-15.5) Hematocrit 33.8 % (36.0-47.0) Mean Corpuscular Volume 86 fL (79-100) Mean Corpuscular Hemoglobin 28 pg (25-35) Mean Corpuscular Hemoglobin Concent 33 g/dL (31-37) Red Cell Distribution Width 18.3 % (11.5-14.5) Platelet Count 627 x10^3/uL (140-400) Neutrophils (%) (Auto) 81 % (31-73) Lymphocytes (%) (Auto) 9 % (24-48) Monocytes (%) (Auto) 8 % (0-9) Eosinophils (%) (Auto) 0 % (0-3) Basophils (%) (Auto) 1 % (0-3) Neutrophils # (Auto) 12.3 x10^3uL (1.8-7.7) Lymphocytes # (Auto) 1.4 x10^3/uL (1.0-4.8) Monocytes # (Auto) 1.1 x10^3/uL (0.0-1.1) Eosinophils # (Auto) 0.1 x10^3/uL (0.0-0.7) Basophils # (Auto) 0.2 x10^3/uL (0.0-0.2) Prothrombin Time 27.6 SEC (11.7-14.0) Prothromb Time International Ratio 2.8 (0.8-1.1) Activated Partial Thromboplast Time 41 SEC (24-38) Sodium Level 139 mmol/L (136-145) Potassium Level 4.0 mmol/L (3.5-5.1) Chloride Level 103 mmol/L (98-107) Carbon Dioxide Level 25 mmol/L (21-32) Anion Gap 11 (6-14) Blood Urea Nitrogen 19 mg/dL (7-20) Creatinine 0.8 mg/dL (0.6-1.0) Estimated GFR (Cockcroft-Gault) 70.7 BUN/Creatinine Ratio 24 (6-20) Glucose Level 156 mg/dL (70-99) Lactic Acid Level 0.9 mmol/L (0.4-2.0) Calcium Level 8.9 mg/dL (8.5-10.1) Total Bilirubin 0.3 mg/dL (0.2-1.0) Aspartate Amino Transf (AST/SGOT) 32 U/L (15-37) Alanine Aminotransferase (ALT/SGPT) 39 U/L (14-59) Alkaline Phosphatase 127 U/L (46-116) Total Protein 7.4 g/dL (6.4-8.2) Albumin 2.8 g/dL (3.4-5.0) Albumin/Globulin Ratio 0.6 (1.0-1.7) Lipase 360 U/L (73-393) Stool Occult Blood Negative (NEG) Gastric Fluid Occult Blood Positive (NEG) Test 12/20/16 22:50 12/21/16 04:25 12/21/16 04:50 Creatine Kinase 82 U/L (26-192) Creatine Kinase MB (Mass) 1.6 ng/mL (0.0-3.6) Creatine Kinase MB Relative Index 2.0 % (0-4) Troponin I Quantitative < 0.017 ng/mL (0.000-0.055) White Blood Count 11.5 x10^3/uL (4.0-11.0) Red Blood Count 3.19 x10^6/uL (3.50-5.40) Hemoglobin 9.3 g/dL (12.0-15.5) Hematocrit 27.8 % (36.0-47.0) Mean Corpuscular Volume 87 fL (79-100) Mean Corpuscular Hemoglobin 29 pg (25-35) Mean Corpuscular Hemoglobin Concent 33 g/dL (31-37) Red Cell Distribution Width 18.8 % (11.5-14.5) Platelet Count 539 x10^3/uL (140-400) Neutrophils (%) (Auto) 63 % (31-73) Lymphocytes (%) (Auto) 23 % (24-48) Monocytes (%) (Auto) 11 % (0-9) Eosinophils (%) (Auto) 1 % (0-3) Basophils (%) (Auto) 1 % (0-3) Neutrophils # (Auto) 7.3 x10^3uL (1.8-7.7) Lymphocytes # (Auto) 2.7 x10^3/uL (1.0-4.8) Monocytes # (Auto) 1.3 x10^3/uL (0.0-1.1) Eosinophils # (Auto) 0.1 x10^3/uL (0.0-0.7) Basophils # (Auto) 0.1 x10^3/uL (0.0-0.2) Sodium Level 140 mmol/L (136-145) Potassium Level 3.7 mmol/L (3.5-5.1) Chloride Level 106 mmol/L (98-107) Carbon Dioxide Level 28 mmol/L (21-32) Anion Gap 6 (6-14) Blood Urea Nitrogen 14 mg/dL (7-20) Creatinine 0.7 mg/dL (0.6-1.0) Estimated GFR (Cockcroft-Gault) 82.5 Glucose Level 121 mg/dL (70-99) Calcium Level 8.0 mg/dL (8.5-10.1) Urine Collection Type Unknown Urine Color Yellow Urine Clarity Clear Urine pH 7.0 Urine Specific [place] 1.020 Urine Protein Negative mg/dL (NEG-TRACE) Urine Glucose (UA) Negative mg/dL (NEG) Urine Ketones (Stick) Negative mg/dL (NEG) Urine Blood Negative (NEG) Urine Nitrite Negative (NEG) Urine Bilirubin Negative (NEG) Urine Urobilinogen Dipstick 0.2 mg/dL (0.2 mg/dL) Urine Leukocyte Esterase Negative (NEG) Urine RBC Occ /HPF (0-2) Urine WBC 1-4 /HPF (0-4) Urine Squamous Epithelial Cells Mod /LPF Urine Bacteria Few /HPF (0-FEW) Urine Mucus Slight /LPF Laboratory Tests Test 12/20/16 18:18 12/20/16 18:25 12/20/16 19:35 12/20/16 22:45 O2 Saturation 95 % (92-99) Arterial Blood pH 7.41 (7.35-7.45) Arterial Blood pCO2 at Patient Temp 39 mmHg (35-46) Arterial Blood pO2 at Patient Temp 84 mmHg (65-108) Arterial Blood HCO3 24 mmol/L (21-28) Arterial Blood Base Excess 0 mmol/L (-3-3) FiO2 28 White Blood Count 15.1 x10^3/uL (4.0-11.0) Red Blood Count 3.95 x10^6/uL (3.50-5.40) Hemoglobin 11.2 g/dL (12.0-15.5) Hematocrit 33.8 % (36.0-47.0) Mean Corpuscular Volume 86 fL (79-100) Mean Corpuscular Hemoglobin 28 pg (25-35) Mean Corpuscular Hemoglobin Concent 33 g/dL (31-37) Red Cell Distribution Width 18.3 % (11.5-14.5) Platelet Count 627 x10^3/uL (140-400) Neutrophils (%) (Auto) 81 % (31-73) Lymphocytes (%) (Auto) 9 % (24-48) Monocytes (%) (Auto) 8 % (0-9) Eosinophils (%) (Auto) 0 % (0-3) Basophils (%) (Auto) 1 % (0-3) Neutrophils # (Auto) 12.3 x10^3uL (1.8-7.7) Lymphocytes # (Auto) 1.4 x10^3/uL (1.0-4.8) Monocytes # (Auto) 1.1 x10^3/uL (0.0-1.1) Eosinophils # (Auto) 0.1 x10^3/uL (0.0-0.7) Basophils # (Auto) 0.2 x10^3/uL (0.0-0.2) Prothrombin Time 27.6 SEC (11.7-14.0) Prothromb Time International Ratio 2.8 (0.8-1.1) Activated Partial Thromboplast Time 41 SEC (24-38) Sodium Level 139 mmol/L (136-145) Potassium Level 4.0 mmol/L (3.5-5.1) Chloride Level 103 mmol/L (98-107) Carbon Dioxide Level 25 mmol/L (21-32) Anion Gap 11 (6-14) Blood Urea Nitrogen 19 mg/dL (7-20) Creatinine 0.8 mg/dL (0.6-1.0) Estimated GFR (Cockcroft-Gault) 70.7 BUN/Creatinine Ratio 24 (6-20) Glucose Level 156 mg/dL (70-99) Lactic Acid Level 0.9 mmol/L (0.4-2.0) Calcium Level 8.9 mg/dL (8.5-10.1) Total Bilirubin 0.3 mg/dL (0.2-1.0) Aspartate Amino Transf (AST/SGOT) 32 U/L (15-37) Alanine Aminotransferase (ALT/SGPT) 39 U/L (14-59) Alkaline Phosphatase 127 U/L (46-116) Total Protein 7.4 g/dL (6.4-8.2) Albumin 2.8 g/dL (3.4-5.0) Albumin/Globulin Ratio 0.6 (1.0-1.7) Lipase 360 U/L (73-393) Stool Occult Blood Negative (NEG) Gastric Fluid Occult Blood Positive (NEG) Test 12/20/16 22:50 12/21/16 04:25 12/21/16 04:50 Creatine Kinase 82 U/L (26-192) Creatine Kinase MB (Mass) 1.6 ng/mL (0.0-3.6) Creatine Kinase MB Relative Index 2.0 % (0-4) Troponin I Quantitative < 0.017 ng/mL (0.000-0.055) White Blood Count 11.5 x10^3/uL (4.0-11.0) Red Blood Count 3.19 x10^6/uL (3.50-5.40) Hemoglobin 9.3 g/dL (12.0-15.5) Hematocrit 27.8 % (36.0-47.0) Mean Corpuscular Volume 87 fL (79-100) Mean Corpuscular Hemoglobin 29 pg (25-35) Mean Corpuscular Hemoglobin Concent 33 g/dL (31-37) Red Cell Distribution Width 18.8 % (11.5-14.5) Platelet Count 539 x10^3/uL (140-400) Neutrophils (%) (Auto) 63 % (31-73) Lymphocytes (%) (Auto) 23 % (24-48) Monocytes (%) (Auto) 11 % (0-9) Eosinophils (%) (Auto) 1 % (0-3) Basophils (%) (Auto) 1 % (0-3) Neutrophils # (Auto) 7.3 x10^3uL (1.8-7.7) Lymphocytes # (Auto) 2.7 x10^3/uL (1.0-4.8) Monocytes # (Auto) 1.3 x10^3/uL (0.0-1.1) Eosinophils # (Auto) 0.1 x10^3/uL (0.0-0.7) Basophils # (Auto) 0.1 x10^3/uL (0.0-0.2) Sodium Level 140 mmol/L (136-145) Potassium Level 3.7 mmol/L (3.5-5.1) Chloride Level 106 mmol/L (98-107) Carbon Dioxide Level 28 mmol/L (21-32) Anion Gap 6 (6-14) Blood Urea Nitrogen 14 mg/dL (7-20) Creatinine 0.7 mg/dL (0.6-1.0) Estimated GFR (Cockcroft-Gault) 82.5 Glucose Level 121 mg/dL (70-99) Calcium Level 8.0 mg/dL (8.5-10.1) Urine Collection Type Unknown Urine Color Yellow Urine Clarity Clear Urine pH 7.0 Urine Specific [place] 1.020 Urine Protein Negative mg/dL (NEG-TRACE) Urine Glucose (UA) Negative mg/dL (NEG) Urine Ketones (Stick) Negative mg/dL (NEG) Urine Blood Negative (NEG) Urine Nitrite Negative (NEG) Urine Bilirubin Negative (NEG) Urine Urobilinogen Dipstick 0.2 mg/dL (0.2 mg/dL) Urine Leukocyte Esterase Negative (NEG) Urine RBC Occ /HPF (0-2) Urine WBC 1-4 /HPF (0-4) Urine Squamous Epithelial Cells Mod /LPF Urine Bacteria Few /HPF (0-FEW) Urine Mucus Slight /LPF Images Images KUB c/w SBO Assessment/Plan Assessment/Plan SBO, hematemesis favor gastroenteritis cont supportive care will check CT consult GI Thanks for consult! KEENA DEVLIN MD Dec 21, 2016 12:11
[2016-12-21] MEDS ORDERED: IOHEXOL 300 MG/ML 75 ML VIAL IV ONE (12:30)
[2016-12-21] MEDS ORDERED: IOHEXOL 240 MG/ML 50ML VIAL. PO ONE (12:30)
[2016-12-21] MEDS ORDERED: CONTRAST GIVEN MC PRN (12:30)
[2016-12-21] MEDS: ONDANSETRON PF 4 MG/2 ML VIAL. IV PRN (12:54)
--- NOTE | 2016-12-21 14:52 | PDOC2 ---
GI CONSULT Reason For Consult: NGT aspirate positive for blood HPI: HPI: 71 y/o female admitted from rehab where she was recovering from recent knee replacement. Most of history from , pt participates some. Reports sticky dark stools for a few days, then yesterday vomited after lunch - significant amount, first food and then bile w/ red tinge. Also had abd pain. Acute abd series w/ small bowel distention, NG tube placed. Per RN, contents were bilious and then bloody. Currently clamped for CT A/P w/ oral and IV contrast. Has been on Warfarin since knee surgery, Hgb from 11.2 to 9.3, INR 2.8. Gastric occult positive, fecal occult negative. Normal BUN/Cr, lactic acid, LFTs (except Alk Phos 127), and lipase. On PPN, no anti-secretory. Significant GI history as below includes GERD on PPI, gastroparesis on domperidone (has continued at rehab), and multiple abd surgeries. Sees Dr. Strickland. Last EGD 07/2013 w/ reflux esophagitis and gastritis. Last colonoscopy w/ retained stool throughout the colon, few divertiula, small tubular adenoma, and int/ext hemorrhoids. PMH: PMH: HTN, HLD, OA, depression/anxiety, hypothyroidism, GERD, adenomatous colon polyp , ischemic colitis, non-alcoholic liver disease, diverticulosis, hemorrhoids, gastroparesis (last GES w/ rapid emptying on domperidone in 2012), incisional hernia repair, modified fundoplication and pyloroplasty w/ G tube placement, previous fundoplication (1977), spinal cord stimulator, pain pump, , hysterectomy w/ BSO, cholecystectomy, tonsillectomy, right toe surgery, bunionectomies, right total knee replacement, lumbar fusion, left ureteral implantation, benign breast lumpectomies FH: Family History: CAD, CVA, Other (mother - "bowel disease") Social History: Smoke: No ALCOHOL: none Drugs: None ROS: GEN: Denies fevers, chills, sweats HEENT: Denies blurred vision, sore throat CV: Denies chest pain RESP: Denies shortness of air, cough GI: Per HPI : Denies hematuria, dysuria ENDO: Denies weight changes NEURO: Denies confusion, dizziness MSK: +weakness +knee pain SKIN: Denies jaundice, pruritus Vitals: Vitals: Vital Signs Date Time Temp Pulse Resp B/P (MAP) Pulse Ox O2 Delivery O2 Flow Rate FiO2 12/21/16 11:00 98.2 86 18 139/76 (97) 98 Nasal Cannula 2.0 98.2 Labs: Labs: Laboratory Tests Test 12/20/16 18:18 12/20/16 18:25 12/20/16 19:35 12/20/16 22:45 O2 Saturation 95 % (92-99) Arterial Blood pH 7.41 (7.35-7.45) Arterial Blood pCO2 at Patient Temp 39 mmHg (35-46) Arterial Blood pO2 at Patient Temp 84 mmHg (65-108) Arterial Blood HCO3 24 mmol/L (21-28) Arterial Blood Base Excess 0 mmol/L (-3-3) FiO2 28 White Blood Count 15.1 x10^3/uL (4.0-11.0) Red Blood Count 3.95 x10^6/uL (3.50-5.40) Hemoglobin 11.2 g/dL (12.0-15.5) Hematocrit 33.8 % (36.0-47.0) Mean Corpuscular Volume 86 fL (79-100) Mean Corpuscular Hemoglobin 28 pg (25-35) Mean Corpuscular Hemoglobin Concent 33 g/dL (31-37) Red Cell Distribution Width 18.3 % (11.5-14.5) Platelet Count 627 x10^3/uL (140-400) Neutrophils (%) (Auto) 81 % (31-73) Lymphocytes (%) (Auto) 9 % (24-48) Monocytes (%) (Auto) 8 % (0-9) Eosinophils (%) (Auto) 0 % (0-3) Basophils (%) (Auto) 1 % (0-3) Neutrophils # (Auto) 12.3 x10^3uL (1.8-7.7) Lymphocytes # (Auto) 1.4 x10^3/uL (1.0-4.8) Monocytes # (Auto) 1.1 x10^3/uL (0.0-1.1) Eosinophils # (Auto) 0.1 x10^3/uL (0.0-0.7) Basophils # (Auto) 0.2 x10^3/uL (0.0-0.2) Prothrombin Time 27.6 SEC (11.7-14.0) Prothromb Time International Ratio 2.8 (0.8-1.1) Activated Partial Thromboplast Time 41 SEC (24-38) Sodium Level 139 mmol/L (136-145) Potassium Level 4.0 mmol/L (3.5-5.1) Chloride Level 103 mmol/L (98-107) Carbon Dioxide Level 25 mmol/L (21-32) Anion Gap 11 (6-14) Blood Urea Nitrogen 19 mg/dL (7-20) Creatinine 0.8 mg/dL (0.6-1.0) Estimated GFR (Cockcroft-Gault) 70.7 BUN/Creatinine Ratio 24 (6-20) Glucose Level 156 mg/dL (70-99) Lactic Acid Level 0.9 mmol/L (0.4-2.0) Calcium Level 8.9 mg/dL (8.5-10.1) Total Bilirubin 0.3 mg/dL (0.2-1.0) Aspartate Amino Transf (AST/SGOT) 32 U/L (15-37) Alanine Aminotransferase (ALT/SGPT) 39 U/L (14-59) Alkaline Phosphatase 127 U/L (46-116) Total Protein 7.4 g/dL (6.4-8.2) Albumin 2.8 g/dL (3.4-5.0) Albumin/Globulin Ratio 0.6 (1.0-1.7) Lipase 360 U/L (73-393) Stool Occult Blood Negative (NEG) Gastric Fluid Occult Blood Positive (NEG) Test 12/20/16 22:50 12/21/16 04:25 12/21/16 04:50 Creatine Kinase 82 U/L (26-192) Creatine Kinase MB (Mass) 1.6 ng/mL (0.0-3.6) Creatine Kinase MB Relative Index 2.0 % (0-4) Troponin I Quantitative < 0.017 ng/mL (0.000-0.055) White Blood Count 11.5 x10^3/uL (4.0-11.0) Red Blood Count 3.19 x10^6/uL (3.50-5.40) Hemoglobin 9.3 g/dL (12.0-15.5) Hematocrit 27.8 % (36.0-47.0) Mean Corpuscular Volume 87 fL (79-100) Mean Corpuscular Hemoglobin 29 pg (25-35) Mean Corpuscular Hemoglobin Concent 33 g/dL (31-37) Red Cell Distribution Width 18.8 % (11.5-14.5) Platelet Count 539 x10^3/uL (140-400) Neutrophils (%) (Auto) 63 % (31-73) Lymphocytes (%) (Auto) 23 % (24-48) Monocytes (%) (Auto) 11 % (0-9) Eosinophils (%) (Auto) 1 % (0-3) Basophils (%) (Auto) 1 % (0-3) Neutrophils # (Auto) 7.3 x10^3uL (1.8-7.7) Lymphocytes # (Auto) 2.7 x10^3/uL (1.0-4.8) Monocytes # (Auto) 1.3 x10^3/uL (0.0-1.1) Eosinophils # (Auto) 0.1 x10^3/uL (0.0-0.7) Basophils # (Auto) 0.1 x10^3/uL (0.0-0.2) Sodium Level 140 mmol/L (136-145) Potassium Level 3.7 mmol/L (3.5-5.1) Chloride Level 106 mmol/L (98-107) Carbon Dioxide Level 28 mmol/L (21-32) Anion Gap 6 (6-14) Blood Urea Nitrogen 14 mg/dL (7-20) Creatinine 0.7 mg/dL (0.6-1.0) Estimated GFR (Cockcroft-Gault) 82.5 Glucose Level 121 mg/dL (70-99) Calcium Level 8.0 mg/dL (8.5-10.1) Urine Collection Type Unknown Urine Color Yellow Urine Clarity Clear Urine pH 7.0 Urine Specific [place] 1.020 Urine Protein Negative mg/dL (NEG-TRACE) Urine Glucose (UA) Negative mg/dL (NEG) Urine Ketones (Stick) Negative mg/dL (NEG) Urine Blood Negative (NEG) Urine Nitrite Negative (NEG) Urine Bilirubin Negative (NEG) Urine Urobilinogen Dipstick 0.2 mg/dL (0.2 mg/dL) Urine Leukocyte Esterase Negative (NEG) Urine RBC Occ /HPF (0-2) Urine WBC 1-4 /HPF (0-4) Urine Squamous Epithelial Cells Mod /LPF Urine Bacteria Few /HPF (0-FEW) Urine Mucus Slight /LPF Allergies: Coded Allergies: prochlorperazine edisylate (Verified Allergy, Severe, Anaphylaxis, 12/05/16) prochlorperazine maleate (Verified Allergy, Severe, Anaphylaxis, 12/05/16) adhesive (Verified Allergy, Intermediate, 12/05/16) ciprofloxacin (Verified Allergy, Intermediate, hallucinations, 12/05/16) ciprofloxacin HCl (Verified Allergy, Intermediate, hallucinations, 12/05/16) clindamycin (Verified Allergy, Intermediate, extreme heartburn, 12/05/16) latex (Verified Allergy, Intermediate, 12/05/16) oxycodone (Verified Allergy, Intermediate, 12/05/16) 'HALLUCINATIONS' Medications: Current Medications Medications (Trade) Dose Ordered Sig/Suki Route PRN Reason Start Time Stop Time Status Last Admin Dose Admin Sodium Chloride 1,000 ml @ 1,000 mls/hr Q1H IV 12/20/16 18:18 12/20/16 19:17 DC 12/20/16 18:31 Ondansetron HCl (Zofran) 4 mg 1X ONCE IV 12/20/16 18:30 12/20/16 18:31 DC 12/20/16 18:35 Famotidine (Pepcid) 20 mg 1X ONCE IVP 12/20/16 18:30 12/20/16 18:31 DC 12/20/16 18:38 Morphine Sulfate 5 mg 1X ONCE IV 12/20/16 20:30 12/20/16 20:31 DC 12/20/16 20:48 Ondansetron HCl (Zofran) 4 mg PRN Q6HRS PRN IV NAUSEA/VOMITING 12/20/16 20:45 12/21/16 12:54 Lorazepam (Ativan) 1 mg PRN Q4HRS PRN IV ANXIETY / AGITATION 12/20/16 20:45 12/20/16 23:13 Amino Acids/ Glycerin/ Electrolytes 1,000 ml @ 80 mls/hr [id number] IV 12/20/16 20:45 12/21/16 09:56 Fentanyl Citrate (Fentanyl 2ml Vial) 50 mcg PRN Q2HR PRN IV PAIN 12/20/16 20:45 12/21/16 20:44 12/21/16 13:14 Sodium Chloride 1,000 ml @ 100 mls/hr Q10H IV 12/20/16 20:40 12/21/16 20:39 12/21/16 06:52 Levothyroxine Sodium 25 mcg/ Sodium Chloride 5 ml @ 100 mls/hr DAILY IVP 12/21/16 09:00 12/21/16 09:57 Nitroglycerin (Nitrostat) 0.4 mg PRN Q5MIN PRN SL X 3 DOSES FOR CHEST PAIN 12/20/16 22:00 12/20/16 22:57 Throat Lozenges (Chloraseptic) 1 spray PRN Q2HR PRN PO SORE THROAT 12/21/16 08:00 12/21/16 08:32 Morphine Sulfate 4 mg PRN Q2HR PRN IV PAIN 12/21/16 10:45 12/21/16 12:09 Benzocaine (Hurricaine One) 1 spray PRN DAILY PRN MM pain 12/21/16 11:45 12/21/16 12:09 Imaging: Imaging: Acute Abd Series 12/20/16 IMPRESSION: 1. Postsurgical changes as described above. 2. Mild gaseous distention of small bowel loops raising the possibility of small bowel obstruction. PE: GEN: NAD HEENT: Atraumatic, PERRL LUNGS: clear, nasal cannula HEART: RRR ABD: BS+, vaguely tender throughout, NG clamped EXTREMITY: BLE edema, wrapped SKIN: No rashes, no jaundice NEURO/PSYCH: forgetful A/P: A/P: Vomiting/hematemesis/blood in NG, abd pain, dark stools -acute abd series w/ SB dilation, NG placed, currently clamped for CT GERD, gastroparesis, diverticulosis, hemorrhoids -last EGD 2013, last colonoscopy 2014 Multiple abd surgeries as above Anemia, gastric occult positive Recent knee surgery on Warfarin, INR 2.8 -- Start IV H2 tyson. Update: D/w Dr. Emery. CT shows no obstruction but ventral midline abdominal wall defects containing anterior wall of the mid transverse colon and omental fat. Continue per surgery. KAM DAMON Dec 21, 2016 14:52
--- NOTE | 2016-12-21 15:08 | RAD ---
CT abdomen/pelvis with IV contrast Indication: Abdominal pain. Technique: CT abdomen/pelvis with 60 mL of Omnipaque 300 with multiplanar reformats. Comparison: Previous study from 10/04/2016 Findings: Heart is normal in size. No pericardial or pleural effusion. Mild bibasilar atelectasis. Liver is mildly enlarged measuring 22 cm and clinical dimension without focal lesion. Spleen is within normal limits. Status post cholecystectomy. Stable dilation of CBD measuring 1.7 cm in the mid segment with smooth distal tapering. Pancreas is within normal limits. Stable mild dilation of the main pancreatic duct in the head. Adrenal glands show no focal lesion. Bilateral extrarenal pelvises. No hydronephrosis or suspicious renal lesion. 1.5 x 1.1 cm common hepatic artery lymph node, previously 2.0 x 1.2 cm. 2.2 x 0.9 cm vance hepatis lymph node, previously 1.7 x 0.7 cm. No retroperitoneal or pelvic adenopathy. NG tube is seen with its tip within the body of the stomach. No bowel obstruction. Loops of small bowel are opacified with contrast material. Mild sigmoid diverticulosis. Stable defect seen within the anterior abdominal wall musculature with herniation of the anterior wall of the mid transverse colon. The neck of the hernia measures approximately 6.7 cm. Herniation of omental fat is seen inferior to this defect. The bladder is markedly distended without focal lesion. Uterus is not visualized likely surgically absent. No solid pelvic masses. No free fluid in the pelvis. Spinal canal stimulator noted in the left anterolateral abdominal wall and right gluteal region. Laminectomy changes noted at L4, L5 vertebral bodies with pedicle screws. Impression: 1. No bowel obstruction. 2. Ventral midline abdominal wall defects containing anterior wall of the mid transverse colon and omental fat. 3. Nonspecific abdominal lymph nodes as above, likely reactive. PQRS Compliance Statement: One or more of the following individualized dose reduction techniques were utilized for this examination: 1. Automated exposure control 2. Adjustment of the mA and/or kV according to patient size 3. Use of iterative reconstruction technique
[2016-12-21 19:00] VITALS: BP 144/80
[2016-12-21] MEDS: ENOXAPARIN 40 MG/0.4 ML SYRINGE. SQ SCH (21:00)
[2016-12-21] MEDS: FAMOTIDINE 20 MG/2 ML VIAL IVP SCH (22:38)
[2016-12-21 23:00] VITALS: BP 120/72
[2016-12-22] MEDS: AMINO AC 3%/ELECTROLYTE/GLYCER 1,000 ML IV SCH ×2 (02:10→10:15)
[2016-12-22] MEDS: fentaNYL PF VIAL 100 MCG/2 ML VIAL IV PRN ×4 (02:27→18:16)
[2016-12-22 03:00] VITALS: BP 131/71
[2016-12-22 07:33] VITALS: BP 138/78
--- NOTE | 2016-12-22 08:06 | PDOC ---
ORTHO PROGRESS NOTES Subjective Abd feels better today. Knee pain tolerable Vitals Vital Signs Date Time Temp Pulse Resp B/P (MAP) Pulse Ox O2 Delivery O2 Flow Rate FiO2 12/22/16 04:59 20 12/22/16 04:29 Nasal Cannula 3.0 12/22/16 03:00 98.1 80 131/71 (91) 93 98.1 Labs Laboratory Tests Test 12/20/16 18:18 12/20/16 18:25 12/20/16 19:35 12/20/16 21:00 O2 Saturation 95 % (92-99) Arterial Blood pH 7.41 (7.35-7.45) Arterial Blood pCO2 at Patient Temp 39 mmHg (35-46) Arterial Blood pO2 at Patient Temp 84 mmHg (65-108) Arterial Blood HCO3 24 mmol/L (21-28) Arterial Blood Base Excess 0 mmol/L (-3-3) FiO2 28 White Blood Count 15.1 x10^3/uL (4.0-11.0) Red Blood Count 3.95 x10^6/uL (3.50-5.40) Hemoglobin 11.2 g/dL (12.0-15.5) Hematocrit 33.8 % (36.0-47.0) Mean Corpuscular Volume 86 fL (79-100) Mean Corpuscular Hemoglobin 28 pg (25-35) Mean Corpuscular Hemoglobin Concent 33 g/dL (31-37) Red Cell Distribution Width 18.3 % (11.5-14.5) Platelet Count 627 x10^3/uL (140-400) Neutrophils (%) (Auto) 81 % (31-73) Lymphocytes (%) (Auto) 9 % (24-48) Monocytes (%) (Auto) 8 % (0-9) Eosinophils (%) (Auto) 0 % (0-3) Basophils (%) (Auto) 1 % (0-3) Neutrophils # (Auto) 12.3 x10^3uL (1.8-7.7) Lymphocytes # (Auto) 1.4 x10^3/uL (1.0-4.8) Monocytes # (Auto) 1.1 x10^3/uL (0.0-1.1) Eosinophils # (Auto) 0.1 x10^3/uL (0.0-0.7) Basophils # (Auto) 0.2 x10^3/uL (0.0-0.2) Prothrombin Time 27.6 SEC (11.7-14.0) Prothromb Time International Ratio 2.8 (0.8-1.1) Activated Partial Thromboplast Time 41 SEC (24-38) Sodium Level 139 mmol/L (136-145) Potassium Level 4.0 mmol/L (3.5-5.1) Chloride Level 103 mmol/L (98-107) Carbon Dioxide Level 25 mmol/L (21-32) Anion Gap 11 (6-14) Blood Urea Nitrogen 19 mg/dL (7-20) Creatinine 0.8 mg/dL (0.6-1.0) Estimated GFR (Cockcroft-Gault) 70.7 BUN/Creatinine Ratio 24 (6-20) Glucose Level 156 mg/dL (70-99) Lactic Acid Level 0.9 mmol/L (0.4-2.0) Calcium Level 8.9 mg/dL (8.5-10.1) Total Bilirubin 0.3 mg/dL (0.2-1.0) Aspartate Amino Transf (AST/SGOT) 32 U/L (15-37) Alanine Aminotransferase (ALT/SGPT) 39 U/L (14-59) Alkaline Phosphatase 127 U/L (46-116) Total Protein 7.4 g/dL (6.4-8.2) Albumin 2.8 g/dL (3.4-5.0) Albumin/Globulin Ratio 0.6 (1.0-1.7) Lipase 360 U/L (73-393) Stool Occult Blood Negative (NEG) Nasal Screen MRSA (PCR) Negative (Negative) Test 12/20/16 22:45 12/20/16 22:50 12/21/16 04:25 12/21/16 04:50 Gastric Fluid Occult Blood Positive (NEG) Creatine Kinase 82 U/L (26-192) Creatine Kinase MB (Mass) 1.6 ng/mL (0.0-3.6) Creatine Kinase MB Relative Index 2.0 % (0-4) Troponin I Quantitative < 0.017 ng/mL (0.000-0.055) White Blood Count 11.5 x10^3/uL (4.0-11.0) Red Blood Count 3.19 x10^6/uL (3.50-5.40) Hemoglobin 9.3 g/dL (12.0-15.5) Hematocrit 27.8 % (36.0-47.0) Mean Corpuscular Volume 87 fL (79-100) Mean Corpuscular Hemoglobin 29 pg (25-35) Mean Corpuscular Hemoglobin Concent 33 g/dL (31-37) Red Cell Distribution Width 18.8 % (11.5-14.5) Platelet Count 539 x10^3/uL (140-400) Neutrophils (%) (Auto) 63 % (31-73) Lymphocytes (%) (Auto) 23 % (24-48) Monocytes (%) (Auto) 11 % (0-9) Eosinophils (%) (Auto) 1 % (0-3) Basophils (%) (Auto) 1 % (0-3) Neutrophils # (Auto) 7.3 x10^3uL (1.8-7.7) Lymphocytes # (Auto) 2.7 x10^3/uL (1.0-4.8) Monocytes # (Auto) 1.3 x10^3/uL (0.0-1.1) Eosinophils # (Auto) 0.1 x10^3/uL (0.0-0.7) Basophils # (Auto) 0.1 x10^3/uL (0.0-0.2) Sodium Level 140 mmol/L (136-145) Potassium Level 3.7 mmol/L (3.5-5.1) Chloride Level 106 mmol/L (98-107) Carbon Dioxide Level 28 mmol/L (21-32) Anion Gap 6 (6-14) Blood Urea Nitrogen 14 mg/dL (7-20) Creatinine 0.7 mg/dL (0.6-1.0) Estimated GFR (Cockcroft-Gault) 82.5 Glucose Level 121 mg/dL (70-99) Calcium Level 8.0 mg/dL (8.5-10.1) Urine Collection Type Unknown Urine Color Yellow Urine Clarity Clear Urine pH 7.0 Urine Specific [place] 1.020 Urine Protein Negative mg/dL (NEG-TRACE) Urine Glucose (UA) Negative mg/dL (NEG) Urine Ketones (Stick) Negative mg/dL (NEG) Urine Blood Negative (NEG) Urine Nitrite Negative (NEG) Urine Bilirubin Negative (NEG) Urine Urobilinogen Dipstick 0.2 mg/dL (0.2 mg/dL) Urine Leukocyte Esterase Negative (NEG) Urine RBC Occ /HPF (0-2) Urine WBC 1-4 /HPF (0-4) Urine Squamous Epithelial Cells Mod /LPF Urine Bacteria Few /HPF (0-FEW) Urine Mucus Slight /LPF Notes A and A in bed, NG in place RLE: incision over knee ok remains NVI RLE Assessment and Plan PT/OT for knee rehab AIDAN ROMO II, MD Dec 22, 2016 08:06
[2016-12-22] MEDS: LEVOTHYROXINE SODIUM 25 MCG in IV NORMAL SALINE 50ML 5 ML IVP SCH (09:41)
[2016-12-22] MEDS: FAMOTIDINE 20 MG/2 ML VIAL IVP SCH ×2 (09:41→20:24)
[2016-12-22] MEDS: ONDANSETRON PF 4 MG/2 ML VIAL. IV PRN (10:51)
[2016-12-22 11:26] VITALS: BP 125/73
--- NOTE | 2016-12-22 11:52 | PDOC ---
PROGRESS NOTES Chief Complaint Chief Complaint 1. BOwel obstruction, indwelling NGT with drainage 2. Mult abd sxs, (hernia repair, yvonne/pyloropasty?) 3. SIRS POA no sepsis 4. Recent Rt knee TKA 5. Diarrhea, better 6. Mild hemoptysis History of Present Illness History of Present Illness NGT seems to be less in output Shows me some blood tinged mucousy phlegm Seems better abd sequeira Explained the CT findings ti Lots of qs - 30 mins in room alone ct: Impression: 1. No bowel obstruction. 2. Ventral midline abdominal wall defects containing anterior wall of the mid transverse colon and omental fat. 3. Nonspecific abdominal lymph nodes as above, likely reactive. mentions EGD plans? NOthing mentioned in notes re that. RT knee looks good, curious if we should restart coumadin post knee sx given risks of developing clots PLAN: Wait for bowel fcn to normalize ENcoiurage ambulation PT/OT on case Hopefully will be able to dc NGT marta once less output- NGT clamping trial per gS Ok to start couamdin for post knee sx (30 day duration) goal INR 2-3. WOF bleeding Dw -and RN rafael, Signif time Will go back to HCR upon dc Vitals Vitals Vital Signs Date Time Temp Pulse Resp B/P (MAP) Pulse Ox O2 Delivery O2 Flow Rate FiO2 12/22/16 11:26 98.4 86 18 125/73 (90) 98 Nasal Cannula 2.0 98.4 Physical Exam General: Alert, Cooperative, No acute distress Heart: Regular rate, Normal S1 Lungs: Clear, Other Abdomen: Soft, Other (mild TTP) Extremities: No clubbing, No edema Skin: No rashes, No breakdown Review of Systems Review of Systems hemoptysis, all else is neg Comment Review of Relevant I have reviewed the following items néstor (where applicable) has been applied. Labs Laboratory Tests Test 12/20/16 18:18 12/20/16 18:25 12/20/16 19:35 12/20/16 21:00 O2 Saturation 95 % (92-99) Arterial Blood pH 7.41 (7.35-7.45) Arterial Blood pCO2 at Patient Temp 39 mmHg (35-46) Arterial Blood pO2 at Patient Temp 84 mmHg (65-108) Arterial Blood HCO3 24 mmol/L (21-28) Arterial Blood Base Excess 0 mmol/L (-3-3) FiO2 28 White Blood Count 15.1 x10^3/uL (4.0-11.0) Red Blood Count 3.95 x10^6/uL (3.50-5.40) Hemoglobin 11.2 g/dL (12.0-15.5) Hematocrit 33.8 % (36.0-47.0) Mean Corpuscular Volume 86 fL (79-100) Mean Corpuscular Hemoglobin 28 pg (25-35) Mean Corpuscular Hemoglobin Concent 33 g/dL (31-37) Red Cell Distribution Width 18.3 % (11.5-14.5) Platelet Count 627 x10^3/uL (140-400) Neutrophils (%) (Auto) 81 % (31-73) Lymphocytes (%) (Auto) 9 % (24-48) Monocytes (%) (Auto) 8 % (0-9) Eosinophils (%) (Auto) 0 % (0-3) Basophils (%) (Auto) 1 % (0-3) Neutrophils # (Auto) 12.3 x10^3uL (1.8-7.7) Lymphocytes # (Auto) 1.4 x10^3/uL (1.0-4.8) Monocytes # (Auto) 1.1 x10^3/uL (0.0-1.1) Eosinophils # (Auto) 0.1 x10^3/uL (0.0-0.7) Basophils # (Auto) 0.2 x10^3/uL (0.0-0.2) Prothrombin Time 27.6 SEC (11.7-14.0) Prothromb Time International Ratio 2.8 (0.8-1.1) Activated Partial Thromboplast Time 41 SEC (24-38) Sodium Level 139 mmol/L (136-145) Potassium Level 4.0 mmol/L (3.5-5.1) Chloride Level 103 mmol/L (98-107) Carbon Dioxide Level 25 mmol/L (21-32) Anion Gap 11 (6-14) Blood Urea Nitrogen 19 mg/dL (7-20) Creatinine 0.8 mg/dL (0.6-1.0) Estimated GFR (Cockcroft-Gault) 70.7 BUN/Creatinine Ratio 24 (6-20) Glucose Level 156 mg/dL (70-99) Lactic Acid Level 0.9 mmol/L (0.4-2.0) Calcium Level 8.9 mg/dL (8.5-10.1) Total Bilirubin 0.3 mg/dL (0.2-1.0) Aspartate Amino Transf (AST/SGOT) 32 U/L (15-37) Alanine Aminotransferase (ALT/SGPT) 39 U/L (14-59) Alkaline Phosphatase 127 U/L (46-116) Total Protein 7.4 g/dL (6.4-8.2) Albumin 2.8 g/dL (3.4-5.0) Albumin/Globulin Ratio 0.6 (1.0-1.7) Lipase 360 U/L (73-393) Stool Occult Blood Negative (NEG) Nasal Screen MRSA (PCR) Negative (Negative) Test 12/20/16 22:45 12/20/16 22:50 12/21/16 04:25 12/21/16 04:50 Gastric Fluid Occult Blood Positive (NEG) Creatine Kinase 82 U/L (26-192) Creatine Kinase MB (Mass) 1.6 ng/mL (0.0-3.6) Creatine Kinase MB Relative Index 2.0 % (0-4) Troponin I Quantitative < 0.017 ng/mL (0.000-0.055) White Blood Count 11.5 x10^3/uL (4.0-11.0) Red Blood Count 3.19 x10^6/uL (3.50-5.40) Hemoglobin 9.3 g/dL (12.0-15.5) Hematocrit 27.8 % (36.0-47.0) Mean Corpuscular Volume 87 fL (79-100) Mean Corpuscular Hemoglobin 29 pg (25-35) Mean Corpuscular Hemoglobin Concent 33 g/dL (31-37) Red Cell Distribution Width 18.8 % (11.5-14.5) Platelet Count 539 x10^3/uL (140-400) Neutrophils (%) (Auto) 63 % (31-73) Lymphocytes (%) (Auto) 23 % (24-48) Monocytes (%) (Auto) 11 % (0-9) Eosinophils (%) (Auto) 1 % (0-3) Basophils (%) (Auto) 1 % (0-3) Neutrophils # (Auto) 7.3 x10^3uL (1.8-7.7) Lymphocytes # (Auto) 2.7 x10^3/uL (1.0-4.8) Monocytes # (Auto) 1.3 x10^3/uL (0.0-1.1) Eosinophils # (Auto) 0.1 x10^3/uL (0.0-0.7) Basophils # (Auto) 0.1 x10^3/uL (0.0-0.2) Sodium Level 140 mmol/L (136-145) Potassium Level 3.7 mmol/L (3.5-5.1) Chloride Level 106 mmol/L (98-107) Carbon Dioxide Level 28 mmol/L (21-32) Anion Gap 6 (6-14) Blood Urea Nitrogen 14 mg/dL (7-20) Creatinine 0.7 mg/dL (0.6-1.0) Estimated GFR (Cockcroft-Gault) 82.5 Glucose Level 121 mg/dL (70-99) Calcium Level 8.0 mg/dL (8.5-10.1) Urine Collection Type Unknown Urine Color Yellow Urine Clarity Clear Urine pH 7.0 Urine Specific [place] 1.020 Urine Protein Negative mg/dL (NEG-TRACE) Urine Glucose (UA) Negative mg/dL (NEG) Urine Ketones (Stick) Negative mg/dL (NEG) Urine Blood Negative (NEG) Urine Nitrite Negative (NEG) Urine Bilirubin Negative (NEG) Urine Urobilinogen Dipstick 0.2 mg/dL (0.2 mg/dL) Urine Leukocyte Esterase Negative (NEG) Urine RBC Occ /HPF (0-2) Urine WBC 1-4 /HPF (0-4) Urine Squamous Epithelial Cells Mod /LPF Urine Bacteria Few /HPF (0-FEW) Urine Mucus Slight /LPF Medications Current Medications Sodium Chloride 1,000 ml @ 1,000 mls/hr Q1H IV Last administered on 12/20/16 18:31; Start 12/20/16 at 18:18; Stop 12/20/16 at 19:17; Status DC Ondansetron HCl (Zofran) 4 mg 1X ONCE IV Last administered on 12/20/16 18:35 ; Start 12/20/16 at 18:30; Stop 12/20/16 at 18:31; Status DC Famotidine (Pepcid) 20 mg 1X ONCE IVP Last administered on 12/20/16 18:38; Start 12/20/16 at 18:30; Stop 12/20/16 at 18:31; Status DC Morphine Sulfate 5 mg 1X ONCE IV Last administered on 12/20/16 20:48; Start 12/20/16 at 20:30; Stop 12/20/16 at 20:31; Status DC Morphine Sulfate 4 mg PRN Q2HR PRN IV PAIN; Start 12/20/16 at 20:45; Stop 12/21 at 10:37; Status DC Ondansetron HCl (Zofran) 4 mg PRN Q6HRS PRN IV NAUSEA/VOMITING Last administered on 12/22/16 10:51; Start 12/20/16 at 20:45 Prochlorperazine Edisylate (Compazine) 10 mg TID PRN IV n/v; Start 12/20/16 at 20:45; Status UNV Enoxaparin Sodium (Lovenox 40mg Syringe) 40 mg QHS SQ ; Start 12/20/16 at 21:00 Lorazepam (Ativan) 1 mg PRN Q4HRS PRN IV ANXIETY / AGITATION Last administered on 12/20/16 23:13; Start 12/20/16 at 20:45 Diphenhydramine HCl (Benadryl) 25 mg PRN QHS PRN IVP sleep; Start 12/20/16 at 20:45 Amino Acids/ Glycerin/ Electrolytes 1,000 ml @ 80 mls/hr [id number] IV Last administered on 12/22/16 02:10; Start 12/20/16 at 20:45 Ondansetron HCl (Zofran) 4 mg PRN Q8HRS PRN IV NAUSEA/VOMITING; Start 12/20/16 at 20:45; Stop 12/21/16 at 11:39; Status DC Fentanyl Citrate (Fentanyl 2ml Vial) 50 mcg PRN Q2HR PRN IV PAIN Last administered on 12/21/16 13:14; Start 12/20/16 at 20:45; Stop 12/21/16 at 20:44 ; Status DC Sodium Chloride 1,000 ml @ 100 mls/hr Q10H IV Last administered on 12/21/16 06:52; Start 12/20/16 at 20:40; Stop 12/21/16 at 17:44; Status DC Acetaminophen (Tylenol) 650 mg PRN Q4HRS PRN PO FEVER; Start 12/20/16 at 20:45 ; Stop 12/21/16 at 20:44; Status DC Levothyroxine Sodium 25 mcg/ Sodium Chloride 5 ml @ 100 mls/hr DAILY IVP Last administered on 12/22/16 09:41; Start 12/21/16 at 09:00 Nitroglycerin (Nitrostat) 0.4 mg PRN Q5MIN PRN SL X 3 DOSES FOR CHEST PAIN Last administered on 12/20/16 22:57; Start 12/20/16 at 22:00 Throat Lozenges (Chloraseptic) 1 spray PRN Q2HR PRN PO SORE THROAT Last administered on 12/21/16 22:38; Start 12/21/16 at 08:00 Morphine Sulfate 4 mg PRN Q2HR PRN IV PAIN Last administered on 12/21/16 23:46 ; Start 12/21/16 at 10:45 Ondansetron HCl (Zofran) 4 mg PRN Q6HRS PRN IV NAUSEA/VOMITING; Start 12/21/16 at 11:36; Stop 12/22/16 at 11:35; Status DC Benzocaine (Hurricaine One) 1 spray PRN DAILY PRN MM pain Last administered on 12/21/16 12:09; Start 12/21/16 at 11:45; Stop 12/21/16 at 21:19; Status DC Iohexol (Omnipaque 240 Mg/ml) 30 ml 1X ONCE PO ; Start 12/21/16 at 12:30; Stop 12/21/16 at 12:31; Status DC Iohexol (Omnipaque 300 Mg/ml) 75 ml 1X ONCE IV Last administered on 12/21/16 12:30; Start 12/21/16 at 12:30; Stop 12/21/16 at 12:31; Status DC Info (Do NOT chart on this entry -- for MONITORING) 1 each PRN DAILY PRN MC SEE COMMENTS; Start 12/21/16 at 12:30; Stop 12/23/16 at 12:29 Famotidine (Pepcid) 20 mg BID IVP Last administered on 12/22/16 09:41; Start 12/21/16 at 21:00 Fentanyl Citrate (Fentanyl 2ml Vial) 50 mcg PRN Q2HR PRN IV PAIN Last administered on 12/22/16 04:29; Start 12/22/16 at 02:00 Active Scripts Active Reported Dulcolax (Bisacodyl) 10 Mg Supp.rect 10 Mg RC PRN DAILY PRN Fleet Enema (Na Phos,M-B/Na Phos,Di-Ba) 133 Ml Enema 1 Each RC DAILY PRN Tramadol Hcl 50 Mg Tablet 2 Tab PO PRN Q3HRS PRN Tramadol Hcl 50 Mg Tablet 1 Tab PO PRN Q6HRS Mucinex (Guaifenesin) 600 Mg Tablet.er 1 Tab PO BID PRN Coumadin (Warfarin Sodium) 5 Mg Tablet 1 Tab PO DAILY Protonix (Pantoprazole Sodium) 40 Mg Tablet.dr 1 Tab PO DAILY Levothyroxine Sodium 50 Mcg Tablet 1 Tab PO DAILY Senna Plus Tablet (Sennosides/Docusate Sodium) 1 Each Tablet 1 Tab PO DAILY Vitamin D (Cholecalciferol (Vitamin D3)) 2,000 Unit Capsule 2,000 Unit PO TID Cyclobenzaprine Hcl 10 Mg Tablet 10 Mg PO TID Lortab 5-325 mg Tablet (Hydrocodone/Acetaminophen) 1 Each Tablet 1 Tab PO PRN Q6HRS PRN Fioricet 50-300-40 Mg Capsule (Butalb/Acetaminophen/Caffeine) 1 Each Capsule 1 Each PO PRN Q4HRS PRN Gabapentin 100 Mg Capsule 300 Mg PO TID [gi cocktail] 500 Mg PO PRN PRN [Clonidine/Pump] [Fentanyl/Pump] Aspirin 325 Mg Tablet 1 Tab PO DAILY Bupivacaine 0.25% On-Q Pump (Bupivacaine Hcl/Pf) 100 Ml Els.high school admissions representative.fr 100 Ml IJ PER PAIN PUMP Alprazolam 0.5 Mg Tab.rapdis 0.5 Mg PO PRN Zofran Odt (Ondansetron) 8 Mg Tab.rapdis 8 Mg PO PRN Ambien (Zolpidem Tartrate) 5 Mg Tablet 5 Mg PO HS Risperdal (Risperidone) 0.5 Mg Tablet 0.5 Mg PO HS [domperadone] 10mg Tablet 20 Mg PO TIDAC Omeprazole 40 Mg Capsule.dr 40 Mg PO BID Zocor (Simvastatin) 20 Mg Tablet 20 Mg PO HS Wellbutrin (Bupropion Hcl) 100 Mg Tablet 150 Mg PO DAILY Levothyroxine Sodium 25 Mcg Tablet 50 Mcg PO DAILY Vitals/I & O Vital Sign - Last 24 Hours 12/21/16 12/21/16 12/21/16 12/21/16 19:00 20:00 23:00 23:46 Temp 99.5 97.5 99.5 97.5 Pulse 80 79 Resp 18 18 20 B/P (MAP) 144/80 (101) 120/72 (88) Pulse Ox 98 94 O2 Delivery Nasal Cannula Nasal Cannula Nasal Cannula O2 Flow Rate 2.0 2.0 2.0 12/22/16 12/22/16 12/22/16 12/22/16 00:16 02:27 03:00 04:29 Temp 98.1 98.1 Pulse 80 Resp 18 16 B/P (MAP) 131/71 (91) Pulse Ox 93 O2 Delivery Nasal Cannula Nasal Cannula O2 Flow Rate 2.0 3.0 12/22/16 12/22/16 12/22/16 12/22/16 04:59 07:33 07:40 11:26 Temp 98.4 98.4 98.4 98.4 Pulse 81 86 Resp 20 18 18 B/P (MAP) 138/78 (98) 125/73 (90) Pulse Ox 97 98 O2 Delivery Nasal Cannula Nasal Cannula Nasal Cannula O2 Flow Rate 2.0 2.0 2.0 Intake and Output 12/21/16 12/21/16 12/22/16 15:00 23:00 07:00 Intake Total 0 ml Output Total 200 ml 150 ml 150 ml Balance -200 ml -150 ml -150 ml SANGEETA BARKLEY MD Dec 22, 2016 11:52
--- NOTE | 2016-12-22 13:06 | PDOC ---
Subjective: Subjective: Nausea. says related to phlegm. No flatus or stools. Objective: Objective: Per RN - ~600 out of NG last night, slowing today. Vital Signs: Vital Signs Date Time Temp Pulse Resp B/P (MAP) Pulse Ox O2 Delivery O2 Flow Rate FiO2 12/22/16 11:26 98.4 86 18 125/73 (90) 98 Nasal Cannula 2.0 98.4 PE: GEN: NAD, on commode LUNGS: CTAB HEART: RRR ABD: NG, some distention, non-tender NEURO/PSYCH: A & O 3 A/P: Ventral midline abdominal wall defects containing colon Anemia, gastric occult positive, hematemesis (resolved) -recent knee surg on Warfarin -on IV H2 tyson -last EGD 2013, colonoscopy 2014 ---> h/o GERD, gastroparesis, diverticulosis, hemorrhoids -- Continue same GI-sequeira, defer NG management and discussion re: abd wall defect to surgery. KAM DAMON Dec 22, 2016 13:06
--- NOTE | 2016-12-22 13:33 | PDOC ---
SURGICAL PROGRESS NOTE Subjective NG in place no flatus or stool CT showing hernia with loop of bowel Vital Signs Vital Signs Date Time Temp Pulse Resp B/P (MAP) Pulse Ox O2 Delivery O2 Flow Rate FiO2 12/22/16 11:26 98.4 86 18 125/73 (90) 98 Nasal Cannula 2.0 98.4 I&O Intake and Output 12/22/16 07:00 Intake Total 0 ml Output Total 500 ml Balance -500 ml Intake Oral 0 ml Output Gastric Drainage Total 500 ml # Voids 8 General: Alert, Oriented X3, Cooperative, No acute distress HEENT: Other (NG bilious) Abdomen: Soft, No tenderness Labs Laboratory Tests Test 12/20/16 18:18 12/20/16 18:25 12/20/16 19:35 12/20/16 21:00 O2 Saturation 95 % (92-99) Arterial Blood pH 7.41 (7.35-7.45) Arterial Blood pCO2 at Patient Temp 39 mmHg (35-46) Arterial Blood pO2 at Patient Temp 84 mmHg (65-108) Arterial Blood HCO3 24 mmol/L (21-28) Arterial Blood Base Excess 0 mmol/L (-3-3) FiO2 28 White Blood Count 15.1 x10^3/uL (4.0-11.0) Red Blood Count 3.95 x10^6/uL (3.50-5.40) Hemoglobin 11.2 g/dL (12.0-15.5) Hematocrit 33.8 % (36.0-47.0) Mean Corpuscular Volume 86 fL (79-100) Mean Corpuscular Hemoglobin 28 pg (25-35) Mean Corpuscular Hemoglobin Concent 33 g/dL (31-37) Red Cell Distribution Width 18.3 % (11.5-14.5) Platelet Count 627 x10^3/uL (140-400) Neutrophils (%) (Auto) 81 % (31-73) Lymphocytes (%) (Auto) 9 % (24-48) Monocytes (%) (Auto) 8 % (0-9) Eosinophils (%) (Auto) 0 % (0-3) Basophils (%) (Auto) 1 % (0-3) Neutrophils # (Auto) 12.3 x10^3uL (1.8-7.7) Lymphocytes # (Auto) 1.4 x10^3/uL (1.0-4.8) Monocytes # (Auto) 1.1 x10^3/uL (0.0-1.1) Eosinophils # (Auto) 0.1 x10^3/uL (0.0-0.7) Basophils # (Auto) 0.2 x10^3/uL (0.0-0.2) Prothrombin Time 27.6 SEC (11.7-14.0) Prothromb Time International Ratio 2.8 (0.8-1.1) Activated Partial Thromboplast Time 41 SEC (24-38) Sodium Level 139 mmol/L (136-145) Potassium Level 4.0 mmol/L (3.5-5.1) Chloride Level 103 mmol/L (98-107) Carbon Dioxide Level 25 mmol/L (21-32) Anion Gap 11 (6-14) Blood Urea Nitrogen 19 mg/dL (7-20) Creatinine 0.8 mg/dL (0.6-1.0) Estimated GFR (Cockcroft-Gault) 70.7 BUN/Creatinine Ratio 24 (6-20) Glucose Level 156 mg/dL (70-99) Lactic Acid Level 0.9 mmol/L (0.4-2.0) Calcium Level 8.9 mg/dL (8.5-10.1) Total Bilirubin 0.3 mg/dL (0.2-1.0) Aspartate Amino Transf (AST/SGOT) 32 U/L (15-37) Alanine Aminotransferase (ALT/SGPT) 39 U/L (14-59) Alkaline Phosphatase 127 U/L (46-116) Total Protein 7.4 g/dL (6.4-8.2) Albumin 2.8 g/dL (3.4-5.0) Albumin/Globulin Ratio 0.6 (1.0-1.7) Lipase 360 U/L (73-393) Stool Occult Blood Negative (NEG) Nasal Screen MRSA (PCR) Negative (Negative) Test 12/20/16 22:45 12/20/16 22:50 12/21/16 04:25 12/21/16 04:50 Gastric Fluid Occult Blood Positive (NEG) Creatine Kinase 82 U/L (26-192) Creatine Kinase MB (Mass) 1.6 ng/mL (0.0-3.6) Creatine Kinase MB Relative Index 2.0 % (0-4) Troponin I Quantitative < 0.017 ng/mL (0.000-0.055) White Blood Count 11.5 x10^3/uL (4.0-11.0) Red Blood Count 3.19 x10^6/uL (3.50-5.40) Hemoglobin 9.3 g/dL (12.0-15.5) Hematocrit 27.8 % (36.0-47.0) Mean Corpuscular Volume 87 fL (79-100) Mean Corpuscular Hemoglobin 29 pg (25-35) Mean Corpuscular Hemoglobin Concent 33 g/dL (31-37) Red Cell Distribution Width 18.8 % (11.5-14.5) Platelet Count 539 x10^3/uL (140-400) Neutrophils (%) (Auto) 63 % (31-73) Lymphocytes (%) (Auto) 23 % (24-48) Monocytes (%) (Auto) 11 % (0-9) Eosinophils (%) (Auto) 1 % (0-3) Basophils (%) (Auto) 1 % (0-3) Neutrophils # (Auto) 7.3 x10^3uL (1.8-7.7) Lymphocytes # (Auto) 2.7 x10^3/uL (1.0-4.8) Monocytes # (Auto) 1.3 x10^3/uL (0.0-1.1) Eosinophils # (Auto) 0.1 x10^3/uL (0.0-0.7) Basophils # (Auto) 0.1 x10^3/uL (0.0-0.2) Sodium Level 140 mmol/L (136-145) Potassium Level 3.7 mmol/L (3.5-5.1) Chloride Level 106 mmol/L (98-107) Carbon Dioxide Level 28 mmol/L (21-32) Anion Gap 6 (6-14) Blood Urea Nitrogen 14 mg/dL (7-20) Creatinine 0.7 mg/dL (0.6-1.0) Estimated GFR (Cockcroft-Gault) 82.5 Glucose Level 121 mg/dL (70-99) Calcium Level 8.0 mg/dL (8.5-10.1) Urine Collection Type Unknown Urine Color Yellow Urine Clarity Clear Urine pH 7.0 Urine Specific [place] 1.020 Urine Protein Negative mg/dL (NEG-TRACE) Urine Glucose (UA) Negative mg/dL (NEG) Urine Ketones (Stick) Negative mg/dL (NEG) Urine Blood Negative (NEG) Urine Nitrite Negative (NEG) Urine Bilirubin Negative (NEG) Urine Urobilinogen Dipstick 0.2 mg/dL (0.2 mg/dL) Urine Leukocyte Esterase Negative (NEG) Urine RBC Occ /HPF (0-2) Urine WBC 1-4 /HPF (0-4) Urine Squamous Epithelial Cells Mod /LPF Urine Bacteria Few /HPF (0-FEW) Urine Mucus Slight /LPF Problem List sbo vs gastroenteritis CT showing hernia with loop of colon--no obstructive signs she is on coumadin with INR of 2.[address] John Problems: BRADLEY FRANCOIS APRN Dec 22, 2016 13:33
[2016-12-22] MEDS: PHENOL ORAL SPRAY 177ML BOTTLE. PO PRN (14:12)
[2016-12-22 15:28] VITALS: BP 129/86
[2016-12-22] MEDS ORDERED: WARFARIN 5 MG TABLET. PO ONE (16:00)
[2016-12-22 19:00] VITALS: BP 138/69
[2016-12-22] MEDS: ENOXAPARIN 40 MG/0.4 ML SYRINGE. SQ SCH (20:24)
[2016-12-22] MEDS: NYSTATIN TOPICAL POWDER 15GM BOTTLE. TP SCH (21:00)
[2016-12-22 23:30] VITALS: BP 142/74
[2016-12-23] MEDS: AMINO AC 3%/ELECTROLYTE/GLYCER 1,000 ML IV SCH ×2 (02:47→11:26)
[2016-12-23] MEDS: fentaNYL PF VIAL 100 MCG/2 ML VIAL IV PRN (02:47)
[2016-12-23 03:00] VITALS: BP 138/79
[2016-12-23 07:00] VITALS: BP 145/80
--- NOTE | 2016-12-23 08:48 | PDOC ---
SURGICAL PROGRESS NOTE Subjective Pt with c/o multiple loose stools, feels better overall, No N/V, no obvious bleeding in NGT Vital Signs Vital Signs Date Time Temp Pulse Resp B/P (MAP) Pulse Ox O2 Delivery O2 Flow Rate FiO2 12/23/16 07:00 97.7 91 18 145/80 (101) 95 Nasal Cannula 2.0 97.7 I&O Intake and Output 12/23/16 07:00 Intake Total 560 ml Output Total 100 ml Balance 460 ml Intake Oral 0 ml IV Total 560 ml Output Gastric Drainage Total 100 ml # Voids 17 # Bowel Movements 1 General: Alert, Oriented X3, Cooperative Abdomen: Soft, No tenderness I have reviewed the following CT hernia, but no obstruction Problem List SBO vs ileus, favor gastroenteritis, improving d/c NGT clears Problems: KEENA DEVLIN MD Dec 23, 2016 08:48
[2016-12-23 09:00] LABS: INR 1.8 (0.8-1.1); PROTHROMBIN TIME PATIENT 19.7 SEC (11.7-14.0)
[2016-12-23] MEDS: FAMOTIDINE 20 MG/2 ML VIAL IVP SCH (09:00)
--- NOTE | 2016-12-23 10:10 | PDOC ---
Subjective: Subjective: Right upper throat soreness w/ swallowing. No abd pain. +flatus, also reports 3 stools Objective: Objective: Reviewed other notes, plans to try clears. Per RN - NG fell out. No bleeding. Urinary frequency. Vital Signs: Vital Signs Date Time Temp Pulse Resp B/P (MAP) Pulse Ox O2 Delivery O2 Flow Rate FiO2 12/23/16 07:00 97.7 91 18 145/80 (101) 95 Nasal Cannula 2.0 97.7 Labs: Laboratory Tests Test 12/23/16 08:40 Prothrombin Time 19.7 SEC Prothromb Time International Ratio 1.8 PE: GEN: NAD, on commode LUNGS: CTAB HEART: RRR ABD: BS+, soft, non-tender NEURO/PSYCH: A & O 3 A/P: Abdominal wall defects containing colon -no obstructive symptoms currently Anemia, gastric occult positive, hematemesis (resolved) -recent knee surg on Warfarin, INR improving -on IV H2 tyson -last EGD 2013, colonoscopy 2014 ---> h/o GERD, gastroparesis, diverticulosis, hemorrhoids -- Await response to diet. Stop IV H2 tyson, change to PO PPI. KAM DAMON Dec 23, 2016 10:10
[2016-12-23] MEDS: LEVOTHYROXINE SODIUM 25 MCG in IV NORMAL SALINE 50ML 5 ML IVP SCH (10:14)
[2016-12-23] MEDS: NYSTATIN TOPICAL POWDER 15GM BOTTLE. TP SCH ×2 (10:15→21:06)
[2016-12-23] MEDS ORDERED: BUPIVACAINE HCL IJ SCH (10:30)
[2016-12-23] MEDS ORDERED: BISACODYL 10 MG SUPP.RECT. RC PRN (10:30)
[2016-12-23] MEDS ORDERED: MAG HYDROX/ALUMINUM HYD/SIMETH 30 ML ORAL.SUSP PO PRN (10:30)
[2016-12-23] MEDS ORDERED: SODIUM PHOSPHATES 19/7GM 133 ML ENEMA. RC PRN (10:30)
--- NOTE | 2016-12-23 10:33 | PDOC ---
PROGRESS NOTES Chief Complaint Chief Complaint 1. BOwel obstruction,improving with conservative measures 2. Mult abd sxs, (hernia repair, yvonne/pyloropasty?) 3. SIRS POA no sepsis 4. Recent Rt knee TKA 5. Diarrhea, better 6. Mild hemoptysis History of Present Illness History of Present Illness NGT out Soft belly Started on liquids, no emesis but "still not sitting right with her" Hx of mulriple abd/sxconditions/hostile abd Educated her again about small meals instead of big large ones and keeping upright Walks to the bathroom, but minimal over all ambulation RT TKA looks ok Warf per pharamcy x 30 days post TKA INR 1.[address] John, no surgical plans PLAn: Resume PO pain meds Liquid diet Dc iV synthroid Current procalamine to consume Encourage ambulation Mylanta prn PT/OT WIll go back to [facility] on dc Warf per pharmacy (goal INR 2-3) Vitals Vitals Vital Signs Date Time Temp Pulse Resp B/P (MAP) Pulse Ox O2 Delivery O2 Flow Rate FiO2 12/23/16 07:00 97.7 91 18 145/80 (101) 95 Nasal Cannula 2.0 97.7 Physical Exam General: Alert, Oriented X3, Cooperative Heart: Regular rate, Normal S1 Lungs: Clear, Other Abdomen: Soft, No tenderness Extremities: No clubbing, No edema Skin: No rashes, No breakdown Labs LABS Laboratory Tests Test 12/23/16 08:40 Prothrombin Time 19.7 SEC (11.7-14.0) Prothromb Time International Ratio 1.8 (0.8-1.1) Review of Systems Review of Systems chronic nausea, no emesis, some abd dc Comment Review of Relevant I have reviewed the following items néstor (where applicable) has been applied. Labs Laboratory Tests Test 12/23/16 08:40 Prothrombin Time 19.7 SEC (11.7-14.0) Prothromb Time International Ratio 1.8 (0.8-1.1) Laboratory Tests Test 12/23/16 08:40 Prothrombin Time 19.7 SEC (11.7-14.0) Prothromb Time International Ratio 1.8 (0.8-1.1) Medications Current Medications Sodium Chloride 1,000 ml @ 1,000 mls/hr Q1H IV Last administered on 12/20/16 18:31; Start 12/20/16 at 18:18; Stop 12/20/16 at 19:17; Status DC Ondansetron HCl (Zofran) 4 mg 1X ONCE IV Last administered on 12/20/16 18:35 ; Start 12/20/16 at 18:30; Stop 12/20/16 at 18:31; Status DC Famotidine (Pepcid) 20 mg 1X ONCE IVP Last administered on 12/20/16 18:38; Start 12/20/16 at 18:30; Stop 12/20/16 at 18:31; Status DC Morphine Sulfate 5 mg 1X ONCE IV Last administered on 12/20/16 20:48; Start 12/20/16 at 20:30; Stop 12/20/16 at 20:31; Status DC Morphine Sulfate 4 mg PRN Q2HR PRN IV PAIN; Start 12/20/16 at 20:45; Stop 12/21 at 10:37; Status DC Ondansetron HCl (Zofran) 4 mg PRN Q6HRS PRN IV NAUSEA/VOMITING Last administered on 12/22/16 10:51; Start 12/20/16 at 20:45 Prochlorperazine Edisylate (Compazine) 10 mg TID PRN IV n/v; Start 12/20/16 at 20:45; Status UNV Enoxaparin Sodium (Lovenox 40mg Syringe) 40 mg QHS SQ ; Start 12/20/16 at 21:00 Lorazepam (Ativan) 1 mg PRN Q4HRS PRN IV ANXIETY / AGITATION Last administered on 12/20/16 23:13; Start 12/20/16 at 20:45 Diphenhydramine HCl (Benadryl) 25 mg PRN QHS PRN IVP sleep; Start 12/20/16 at 20:45 Amino Acids/ Glycerin/ Electrolytes 1,000 ml @ 80 mls/hr [id number] IV Last administered on 12/23/16 02:47; Start 12/20/16 at 20:45 Ondansetron HCl (Zofran) 4 mg PRN Q8HRS PRN IV NAUSEA/VOMITING; Start 12/20/16 at 20:45; Stop 12/21/16 at 11:39; Status DC Fentanyl Citrate (Fentanyl 2ml Vial) 50 mcg PRN Q2HR PRN IV PAIN Last administered on 12/21/16 13:14; Start 12/20/16 at 20:45; Stop 12/21/16 at 20:44 ; Status DC Sodium Chloride 1,000 ml @ 100 mls/hr Q10H IV Last administered on 12/21/16 06:52; Start 12/20/16 at 20:40; Stop 12/21/16 at 17:44; Status DC Acetaminophen (Tylenol) 650 mg PRN Q4HRS PRN PO FEVER; Start 12/20/16 at 20:45 ; Stop 12/21/16 at 20:44; Status DC Levothyroxine Sodium 25 mcg/ Sodium Chloride 5 ml @ 100 mls/hr DAILY IVP Last administered on 12/23/16 10:14; Start 12/21/16 at 09:00 Nitroglycerin (Nitrostat) 0.4 mg PRN Q5MIN PRN SL X 3 DOSES FOR CHEST PAIN Last administered on 12/20/16 22:57; Start 12/20/16 at 22:00 Throat Lozenges (Chloraseptic) 1 spray PRN Q2HR PRN PO SORE THROAT Last administered on 12/22/16 14:12; Start 12/21/16 at 08:00 Morphine Sulfate 4 mg PRN Q2HR PRN IV PAIN Last administered on 12/21/16 23:46 ; Start 12/21/16 at 10:45 Ondansetron HCl (Zofran) 4 mg PRN Q6HRS PRN IV NAUSEA/VOMITING; Start 12/21/16 at 11:36; Stop 12/22/16 at 11:35; Status DC Benzocaine (Hurricaine One) 1 spray PRN DAILY PRN MM pain Last administered on 12/21/16 12:09; Start 12/21/16 at 11:45; Stop 12/21/16 at 21:19; Status DC Iohexol (Omnipaque 240 Mg/ml) 30 ml 1X ONCE PO ; Start 12/21/16 at 12:30; Stop 12/21/16 at 12:31; Status DC Iohexol (Omnipaque 300 Mg/ml) 75 ml 1X ONCE IV Last administered on 12/21/16 12:30; Start 12/21/16 at 12:30; Stop 12/21/16 at 12:31; Status DC Info (Do NOT chart on this entry -- for MONITORING) 1 each PRN DAILY PRN MC SEE COMMENTS; Start 12/21/16 at 12:30; Stop 12/23/16 at 12:29 Famotidine (Pepcid) 20 mg BID IVP Last administered on 12/22/16 20:24; Start 12/21/16 at 21:00; Stop 12/23/16 at 10:11; Status DC Fentanyl Citrate (Fentanyl 2ml Vial) 50 mcg PRN Q2HR PRN IV PAIN Last administered on 12/23/16 02:47; Start 12/22/16 at 02:00 Warfarin Sodium (Coumadin Per Pharmacy) 1 each PRN DAILY PRN MC SEE COMMENTS Last administered on 12/22/16 14:19; Start 12/22/16 at 12:00 Warfarin Sodium (Coumadin) 5 mg 1X WARF ONCE PO ; Start 12/22/16 at 16:00; Stop 12/22/16 at 16:01; Status DC Nystatin (Nystop) 1 astrid BID TP Last administered on 12/23/16 10:15; Start at 21:00 Pantoprazole Sodium (Protonix) 40 mg DAILYAC PO ; Start 12/23/16 at 11:00 Active Scripts Active Reported Dulcolax (Bisacodyl) 10 Mg Supp.rect 10 Mg RC PRN DAILY PRN Fleet Enema (Na Phos,M-B/Na Phos,Di-Ba) 133 Ml Enema 1 Each RC DAILY PRN Tramadol Hcl 50 Mg Tablet 2 Tab PO PRN Q3HRS PRN Tramadol Hcl 50 Mg Tablet 1 Tab PO PRN Q6HRS Mucinex (Guaifenesin) 600 Mg Tablet.er 1 Tab PO BID PRN Coumadin (Warfarin Sodium) 5 Mg Tablet 1 Tab PO DAILY Protonix (Pantoprazole Sodium) 40 Mg Tablet.dr 1 Tab PO DAILY Levothyroxine Sodium 50 Mcg Tablet 1 Tab PO DAILY Senna Plus Tablet (Sennosides/Docusate Sodium) 1 Each Tablet 1 Tab PO DAILY Vitamin D (Cholecalciferol (Vitamin D3)) 2,000 Unit Capsule 2,000 Unit PO TID Cyclobenzaprine Hcl 10 Mg Tablet 10 Mg PO TID Lortab 5-325 mg Tablet (Hydrocodone/Acetaminophen) 1 Each Tablet 1 Tab PO PRN Q6HRS PRN Fioricet 50-300-40 Mg Capsule (Butalb/Acetaminophen/Caffeine) 1 Each Capsule 1 Each PO PRN Q4HRS PRN Gabapentin 100 Mg Capsule 300 Mg PO TID [gi cocktail] 500 Mg PO PRN PRN [Clonidine/Pump] [Fentanyl/Pump] Aspirin 325 Mg Tablet 1 Tab PO DAILY Bupivacaine 0.25% On-Q Pump (Bupivacaine Hcl/Pf) 100 Ml Els.relocation specialist.fr 100 Ml IJ PER PAIN PUMP Alprazolam 0.5 Mg Tab.rapdis 0.5 Mg PO PRN Zofran Odt (Ondansetron) 8 Mg Tab.rapdis 8 Mg PO PRN Ambien (Zolpidem Tartrate) 5 Mg Tablet 5 Mg PO HS Risperdal (Risperidone) 0.5 Mg Tablet 0.5 Mg PO HS [domperadone] 10mg Tablet 20 Mg PO TIDAC Omeprazole 40 Mg Capsule.dr 40 Mg PO BID Zocor (Simvastatin) 20 Mg Tablet 20 Mg PO HS Wellbutrin (Bupropion Hcl) 100 Mg Tablet 150 Mg PO DAILY Levothyroxine Sodium 25 Mcg Tablet 50 Mcg PO DAILY Vitals/I & O Vital Sign - Last 24 Hours 12/22/16 12/22/16 12/22/16 12/22/16 11:26 15:28 15:34 16:27 Temp 98.4 98.1 98.4 98.1 Pulse 86 83 Resp 18 18 16 B/P (MAP) 125/73 (90) 129/86 (100) Pulse Ox 98 97 O2 Delivery Nasal Cannula Nasal Cannula Room Air O2 Flow Rate 2.0 2.0 2.0 12/22/16 12/22/16 12/22/16 12/22/16 18:16 19:00 20:00 23:30 Temp 98.9 98.0 98.9 98.0 Pulse 82 88 Resp 16 18 18 B/P (MAP) 138/69 (92) 142/74 (96) Pulse Ox 94 94 O2 Delivery Nasal Cannula Room Air Room Air Room Air O2 Flow Rate 2.0 12/23/16 12/23/16 12/23/16 12/23/16 02:47 03:00 03:17 07:00 Temp 99.6 97.7 99.6 97.7 Pulse 87 91 Resp 20 18 18 18 B/P (MAP) 138/79 (98) 145/80 (101) Pulse Ox 94 92 92 95 O2 Delivery Room Air Room Air Room Air Nasal Cannula O2 Flow Rate 2.0 Intake and Output 12/22/16 12/22/16 12/23/16 15:00 23:00 07:00 Intake Total 0 ml 560 ml Output Total 100 ml Balance -100 ml 560 ml SANGEETA BARKLEY MD Dec 23, 2016 10:33
[2016-12-23 11:00] VITALS: BP_SYST 114; BP_SYST 136; BP_DIAS 45; BP_DIAS 77
[2016-12-23] MEDS ORDERED: BUTALB/APAP/CAFEIN 50/325/40MG TABLET. PO PRN (11:00)
[2016-12-23] MEDS: PANTOPRAZOLE 40 MG TABLET.DR. PO SCH (11:26)
[2016-12-23] MEDS: ALPRAZolam 0.5 MG TABLET PO PRN (11:26)
[2016-12-23] MEDS: buPROPion 100 MG TABLET PO SCH (11:26)
[2016-12-23] MEDS: traMADol 50 MG TABLET PO PRN ×2 (11:26→20:11)
[2016-12-23] MEDS: ASPIRIN 325 MG TABLET PO SCH (11:26)
[2016-12-23] MEDS: CHOLECALCIFEROL (VITAMIN D3) 1,000 UNIT TABLET PO SCH (11:26)
[2016-12-23] MEDS: HYDROcodone/APAP 5/325MG 1 TAB TABLET PO PRN ×2 (11:30→17:03)
[2016-12-23] MEDS: DOMPERIDONE 20 MG PO SCH ×2 (11:30→16:30)
[2016-12-23] MEDS: GABAPENTIN 300 MG CAPSULE. PO SCH ×2 (14:10→21:03)
[2016-12-23] MEDS: CYCLOBENZAPRINE 10 MG TABLET. PO SCH ×2 (14:10→21:04)
[2016-12-23 15:00] VITALS: BP 129/74
[2016-12-23] MEDS ORDERED: WARFARIN 5 MG TABLET. PO ONE (16:00)
[2016-12-23 19:00] VITALS: BP 118/49
[2016-12-23] MEDS: ZOLPIDEM 5 MG TABLET. PO SCH (21:03)
[2016-12-23] MEDS: SIMVASTATIN 20 MG TABLET PO SCH (21:03)
[2016-12-23] MEDS: risperiDONE 0.25 MG TABLET. PO SCH (21:04)
[2016-12-23] MEDS: ENOXAPARIN 40 MG/0.4 ML SYRINGE. SQ SCH (21:04)
[2016-12-23 23:00] VITALS: BP 108/47
[2016-12-24] MEDS: HYDROcodone/APAP 5/325MG 1 TAB TABLET PO PRN ×3 (00:03→15:57)
[2016-12-24] MEDS: AMINO AC 3%/ELECTROLYTE/GLYCER 1,000 ML IV SCH ×2 (02:30→12:15)
[2016-12-24] MEDS: traMADol 50 MG TABLET PO PRN (02:31)
[2016-12-24 03:00] VITALS: BP 97/49
[2016-12-24] MEDS: LEVOTHYROXINE 50 MCG TABLET PO SCH (06:24)
[2016-12-24] MEDS: DOMPERIDONE 20 MG PO SCH (07:30)
[2016-12-24 07:35] VITALS: BP 116/66
[2016-12-24] MEDS: CYCLOBENZAPRINE 10 MG TABLET. PO SCH ×3 (08:17→21:24)
[2016-12-24] MEDS: ASPIRIN 325 MG TABLET PO SCH (08:17)
[2016-12-24] MEDS: ALPRAZolam 0.5 MG TABLET PO PRN (08:17)
[2016-12-24] MEDS: CHOLECALCIFEROL (VITAMIN D3) 1,000 UNIT TABLET PO SCH (08:18)
[2016-12-24] MEDS: PANTOPRAZOLE 40 MG TABLET.DR. PO SCH (08:19)
[2016-12-24] MEDS: GABAPENTIN 300 MG CAPSULE. PO SCH ×3 (08:19→21:24)
[2016-12-24] MEDS: buPROPion 100 MG TABLET PO SCH (08:19)
[2016-12-24] MEDS: NYSTATIN TOPICAL POWDER 15GM BOTTLE. TP SCH ×2 (08:22→21:24)
[2016-12-24 10:14] LABS: INR 2.1 (0.8-1.1); PROTHROMBIN TIME PATIENT 22.1 SEC (11.7-14.0)
[2016-12-24 11:30] VITALS: BP 90/56
--- NOTE | 2016-12-24 12:26 | PDOC ---
PROGRESS NOTES Chief Complaint Chief Complaint 1. BOwel obstruction,improving with conservative measures 2. Mult abd sxs, (hernia repair, yvonne/pyloropasty?) 3. SIRS POA no sepsis 4. Recent Rt knee TKA on coumadin x 30 days with INR at goal 5. Diarrhea, better 6. Mild hemoptysis History of Present Illness History of Present Illness COnt to improve Tolerating liq diet so far INR at goal, dw pharmacy - for knee sx - goal is 1.6 to 2.5 x 30 days She was at 1.8 yesterday PLAN: Dc lovenox Shots since iNR at goal Advance to GI soft NOw does not want to go back to [facility] - patient is ok going back there Await SW to screen other SNU per request ( mentions ortho had other SNU preference?) Vitals Vitals Vital Signs Date Time Temp Pulse Resp B/P (MAP) Pulse Ox O2 Delivery O2 Flow Rate FiO2 12/24/16 11:30 97.5 70 20 90/56 (67) 93 BiPAP/CPAP 97.5 12/23/16 23:00 2.0 Physical Exam General: Alert, Oriented X3, Cooperative Heart: Regular rate, Normal S1 Lungs: Clear, Other Abdomen: Soft, No tenderness Extremities: No clubbing, No edema Skin: No rashes, No breakdown Labs LABS Laboratory Tests Test 12/24/16 09:18 Prothrombin Time 22.1 SEC (11.7-14.0) Prothromb Time International Ratio 2.1 (0.8-1.1) Review of Systems Review of Systems denies 14 pt reviewed Comment Review of Relevant I have reviewed the following items néstor (where applicable) has been applied. Labs Laboratory Tests Test 12/23/16 08:40 12/24/16 09:18 Prothrombin Time 19.7 SEC (11.7-14.0) 22.1 SEC (11.7-14.0) Prothromb Time International Ratio 1.8 (0.8-1.1) 2.1 (0.8-1.1) Laboratory Tests Test 12/24/16 09:18 Prothrombin Time 22.1 SEC (11.7-14.0) Prothromb Time International Ratio 2.1 (0.8-1.1) Medications Current Medications Sodium Chloride 1,000 ml @ 1,000 mls/hr Q1H IV Last administered on 12/20/16 18:31; Start 12/20/16 at 18:18; Stop 12/20/16 at 19:17; Status DC Ondansetron HCl (Zofran) 4 mg 1X ONCE IV Last administered on 12/20/16 18:35 ; Start 12/20/16 at 18:30; Stop 12/20/16 at 18:31; Status DC Famotidine (Pepcid) 20 mg 1X ONCE IVP Last administered on 12/20/16 18:38; Start 12/20/16 at 18:30; Stop 12/20/16 at 18:31; Status DC Morphine Sulfate 5 mg 1X ONCE IV Last administered on 12/20/16 20:48; Start 12/20/16 at 20:30; Stop 12/20/16 at 20:31; Status DC Morphine Sulfate 4 mg PRN Q2HR PRN IV PAIN; Start 12/20/16 at 20:45; Stop 12/21 at 10:37; Status DC Ondansetron HCl (Zofran) 4 mg PRN Q6HRS PRN IV NAUSEA/VOMITING Last administered on 12/22/16 10:51; Start 12/20/16 at 20:45 Prochlorperazine Edisylate (Compazine) 10 mg TID PRN IV n/v; Start 12/20/16 at 20:45; Status UNV Enoxaparin Sodium (Lovenox 40mg Syringe) 40 mg QHS SQ Last administered on 12/23 21:04; Start 12/20/16 at 21:00; Stop 12/24/16 at 08:50; Status DC Lorazepam (Ativan) 1 mg PRN Q4HRS PRN IV ANXIETY / AGITATION Last administered on 12/20/16 23:13; Start 12/20/16 at 20:45 Diphenhydramine HCl (Benadryl) 25 mg PRN QHS PRN IVP sleep; Start 12/20/16 at 20:45 Amino Acids/ Glycerin/ Electrolytes 1,000 ml @ 80 mls/hr [id number] IV Last administered on 12/24/16 02:30; Start 12/20/16 at 20:45 Ondansetron HCl (Zofran) 4 mg PRN Q8HRS PRN IV NAUSEA/VOMITING; Start 12/20/16 at 20:45; Stop 12/21/16 at 11:39; Status DC Fentanyl Citrate (Fentanyl 2ml Vial) 50 mcg PRN Q2HR PRN IV PAIN Last administered on 12/21/16 13:14; Start 12/20/16 at 20:45; Stop 12/21/16 at 20:44 ; Status DC Sodium Chloride 1,000 ml @ 100 mls/hr Q10H IV Last administered on 12/21/16 06:52; Start 12/20/16 at 20:40; Stop 12/21/16 at 17:44; Status DC Acetaminophen (Tylenol) 650 mg PRN Q4HRS PRN PO FEVER; Start 12/20/16 at 20:45 ; Stop 12/21/16 at 20:44; Status DC Levothyroxine Sodium 25 mcg/ Sodium Chloride 5 ml @ 100 mls/hr DAILY IVP Last administered on 12/23/16 10:14; Start 12/21/16 at 09:00; Stop 12/23/16 at 10:31 ; Status DC Nitroglycerin (Nitrostat) 0.4 mg PRN Q5MIN PRN SL X 3 DOSES FOR CHEST PAIN Last administered on 12/20/16 22:57; Start 12/20/16 at 22:00 Throat Lozenges (Chloraseptic) 1 spray PRN Q2HR PRN PO SORE THROAT Last administered on 12/22/16 14:12; Start 12/21/16 at 08:00 Morphine Sulfate 4 mg PRN Q2HR PRN IV PAIN Last administered on 12/21/16 23:46 ; Start 12/21/16 at 10:45 Ondansetron HCl (Zofran) 4 mg PRN Q6HRS PRN IV NAUSEA/VOMITING; Start 12/21/16 at 11:36; Stop 12/22/16 at 11:35; Status DC Benzocaine (Hurricaine One) 1 spray PRN DAILY PRN MM pain Last administered on 12/21/16 12:09; Start 12/21/16 at 11:45; Stop 12/21/16 at 21:19; Status DC Iohexol (Omnipaque 240 Mg/ml) 30 ml 1X ONCE PO ; Start 12/21/16 at 12:30; Stop 12/21/16 at 12:31; Status DC Iohexol (Omnipaque 300 Mg/ml) 75 ml 1X ONCE IV Last administered on 12/21/16 12:30; Start 12/21/16 at 12:30; Stop 12/21/16 at 12:31; Status DC Info (Do NOT chart on this entry -- for MONITORING) 1 each PRN DAILY PRN MC SEE COMMENTS; Start 12/21/16 at 12:30; Stop 12/23/16 at 12:29; Status DC Famotidine (Pepcid) 20 mg BID IVP Last administered on 12/22/16 20:24; Start 12/21/16 at 21:00; Stop 12/23/16 at 10:11; Status DC Fentanyl Citrate (Fentanyl 2ml Vial) 50 mcg PRN Q2HR PRN IV PAIN Last administered on 12/23/16 02:47; Start 12/22/16 at 02:00 Warfarin Sodium (Coumadin Per Pharmacy) 1 each PRN DAILY PRN MC SEE COMMENTS Last administered on 12/23/16 14:44; Start 12/22/16 at 12:00 Warfarin Sodium (Coumadin) 5 mg 1X WARF ONCE PO ; Start 12/22/16 at 16:00; Stop 12/22/16 at 16:01; Status DC Nystatin (Nystop) 1 astrid BID TP Last administered on 12/24/16 08:22; Start at 21:00 Pantoprazole Sodium (Protonix) 40 mg DAILYAC PO Last administered on 12/24/16 08:19; Start 12/23/16 at 11:00 Al Hydroxide/Mg Hydroxide (Mylanta Plus Xs) 30 ml PRN Q2HR PRN PO HEARTBURN / GAS; Start 12/23/16 at 10:30 Levothyroxine Sodium (Synthroid) 50 mcg DAILY07 PO Last administered on 06:24; Start 12/24/16 at 07:00 Aspirin (Ale Aspirin) 325 mg DAILY PO Last administered on 12/24/16 08:17; Start 12/23/16 at 11:30 Bisacodyl (Dulcolax Supp) 10 mg PRN DAILY PRN RC CONSTIPATION; Start 12/23/16 at 10:30 Bupropion HCl (Wellbutrin) 150 mg DAILY PO Last administered on 12/24/16 08:19 ; Start 12/23/16 at 11:30 Cyclobenzaprine HCl (Flexeril) 10 mg TID PO Last administered on 12/24/16 08: 17; Start 12/23/16 at 14:00 Gabapentin (Neurontin) 300 mg TID PO Last administered on 12/24/16 08:19; Start 12/23/16 at 14:00 Guaifenesin (Mucinex) 600 mg PRN BID PRN PO SEE COMMENTS; Start 12/23/16 at 10: 30 Acetaminophen/ Hydrocodone Bitart (Lortab 5/325) 1 tab PRN Q6HRS PRN PO PAIN Last administered on 12/24/16 08:18; Start 12/23/16 at 10:30 Sodium Monofluorophosphate (Fleet Adult) 133 ml PRN DAILY PRN RC CONSTIPATION; Start 12/23/16 at 10:30 Simvastatin (Zocor) 20 mg HS PO Last administered on 12/23/16 21:03; Start at 21:00 Tramadol HCl (Ultram) 50 mg PRN Q6HRS PRN PO PAIN Last administered on 02:31; Start 12/23/16 at 10:30 Zolpidem Tartrate (Ambien) 5 mg HS PO Last administered on 12/23/16 21:03; Start 12/23/16 at 21:00 Alprazolam (Xanax) 0.5 mg PRN DAILY PRN PO ANXIETY / AGITATION Last administered on 12/24/16 08:17; Start 12/23/16 at 11:00 Non-Formulary Medication 100 ml per pain pump IJ ; Start 12/23/16 at 10:30 Acetaminophen/ Butalbital/ Caffeine (Fioricet) 1 tab PRN Q6HRS PRN PO MIGRAINE HEADACHE Last administered on 12/23/16 14:10; Start 12/23/16 at 11:00 Vitamin D (Vitamin D3) 2,000 unit DAILY PO Last administered on 12/24/16 08:18 ; Start 12/23/16 at 11:30 Risperidone (RisperDAL) 0.5 mg QHS PO Last administered on 12/23/16 21:04; Start 12/23/16 at 21:00 Non-Formulary Medication 20 mg TIDAC PO ; Start 12/23/16 at 11:30; Stop at 08:00; Status DC Warfarin Sodium (Coumadin) 5 mg 1X WARF ONCE PO Last administered on t 17:03; Start 12/23/16 at 16:00; Stop 12/23/16 at 16:01; Status DC Active Scripts Active Reported Dulcolax (Bisacodyl) 10 Mg Supp.rect 10 Mg RC PRN DAILY PRN Fleet Enema (Na Phos,M-B/Na Phos,Di-Ba) 133 Ml Enema 1 Each RC DAILY PRN Tramadol Hcl 50 Mg Tablet 2 Tab PO PRN Q3HRS PRN Tramadol Hcl 50 Mg Tablet 1 Tab PO PRN Q6HRS Mucinex (Guaifenesin) 600 Mg Tablet.er 1 Tab PO BID PRN Coumadin (Warfarin Sodium) 5 Mg Tablet 1 Tab PO DAILY Protonix (Pantoprazole Sodium) 40 Mg Tablet.dr 1 Tab PO DAILY Levothyroxine Sodium 50 Mcg Tablet 1 Tab PO DAILY Senna Plus Tablet (Sennosides/Docusate Sodium) 1 Each Tablet 1 Tab PO DAILY Vitamin D (Cholecalciferol (Vitamin D3)) 2,000 Unit Capsule 2,000 Unit PO TID Cyclobenzaprine Hcl 10 Mg Tablet 10 Mg PO TID Lortab 5-325 mg Tablet (Hydrocodone/Acetaminophen) 1 Each Tablet 1 Tab PO PRN Q6HRS PRN Fioricet 50-300-40 Mg Capsule (Butalb/Acetaminophen/Caffeine) 1 Each Capsule 1 Each PO PRN Q4HRS PRN Gabapentin 100 Mg Capsule 300 Mg PO TID [gi cocktail] 500 Mg PO PRN PRN [Clonidine/Pump] [Fentanyl/Pump] Aspirin 325 Mg Tablet 1 Tab PO DAILY Bupivacaine 0.25% On-Q Pump (Bupivacaine Hcl/Pf) 100 Ml Els.dye lab technician.fr 100 Ml IJ PER PAIN PUMP Alprazolam 0.5 Mg Tab.rapdis 0.5 Mg PO PRN Zofran Odt (Ondansetron) 8 Mg Tab.rapdis 8 Mg PO PRN Ambien (Zolpidem Tartrate) 5 Mg Tablet 5 Mg PO HS Risperdal (Risperidone) 0.5 Mg Tablet 0.5 Mg PO HS [domperadone] 10mg Tablet 20 Mg PO TIDAC Omeprazole 40 Mg Capsule.dr 40 Mg PO BID Zocor (Simvastatin) 20 Mg Tablet 20 Mg PO HS Wellbutrin (Bupropion Hcl) 100 Mg Tablet 150 Mg PO DAILY Levothyroxine Sodium 25 Mcg Tablet 50 Mcg PO DAILY Vitals/I & O Vital Sign - Last 24 Hours 12/23/16 12/23/16 12/23/16 12/23/16 15:00 19:00 19:49 20:11 Temp 99.3 97.9 99.3 97.9 Pulse 82 72 Resp 18 18 18 B/P (MAP) 129/74 (92) 118/49 (72) Pulse Ox 94 96 O2 Delivery Nasal Cannula Nasal Cannula Room Air Room Air O2 Flow Rate 2.0 2.0 2.0 12/23/16 12/24/16 12/24/16 12/24/16 23:00 00:03 01:10 02:31 Temp 97.9 97.9 Pulse 82 Resp 18 16 16 16 B/P (MAP) 108/47 (67) Pulse Ox 90 O2 Delivery Nasal Cannula Room Air Room Air Room Air O2 Flow Rate 2.0 12/24/16 12/24/16 12/24/16 12/24/16 03:00 03:40 07:35 08:00 Temp 97.9 97.9 97.9 97.9 Pulse 78 82 Resp 20 16 20 B/P (MAP) 97/49 (65) 116/66 (83) Pulse Ox 97 93 O2 Delivery BiPAP/CPAP Room Air BiPAP/CPAP Room Air 12/24/16 12/24/16 08:18 11:30 Temp 97.5 97.5 Pulse 70 Resp 20 20 B/P (MAP) 90/56 (67) Pulse Ox 93 O2 Delivery Room Air BiPAP/CPAP Intake and Output 12/23/16 12/23/16 12/24/16 15:00 23:00 07:00 Intake Total 1000 ml 790 ml Balance 1000 ml 790 ml SANGEETA BARKLEY MD Dec 24, 2016 12:26
--- NOTE | 2016-12-24 14:11 | PDOC ---
SURGICAL PROGRESS NOTE Subjective tolerating clears had loose stool no pain Vital Signs Vital Signs Date Time Temp Pulse Resp B/P (MAP) Pulse Ox O2 Delivery O2 Flow Rate FiO2 12/24/16 11:30 97.5 70 20 90/56 (67) 93 BiPAP/CPAP 97.5 12/23/16 23:00 2.0 I&O Intake and Output 12/24/16 06:59 Intake Total 1790 ml Balance 1790 ml Intake Oral 1790 ml # Voids 8 # Bowel Movements 1 General: Alert, Oriented X3, Cooperative, No acute distress Abdomen: Normal bowel sounds, Soft, No tenderness Labs Laboratory Tests Test 12/23/16 08:40 12/24/16 09:18 Prothrombin Time 19.7 SEC (11.7-14.0) 22.1 SEC (11.7-14.0) Prothromb Time International Ratio 1.8 (0.8-1.1) 2.1 (0.8-1.1) Laboratory Tests Test 12/24/16 09:18 Prothrombin Time 22.1 SEC (11.7-14.0) Prothromb Time International Ratio 2.1 (0.8-1.1) Problem List abd pain, likely gastroenteritis advancing diet Problems: BRADLEY FRANCOIS CIRCULAR CLERK Dec 24, 2016 14:11
[2016-12-24 15:21] VITALS: BP 105/63
[2016-12-24] MEDS ORDERED: WARFARIN 4 MG TABLET. PO ONE (16:00)
[2016-12-24] MEDS: DOMPERIDONE 10 MG PO SCH (17:03)
[2016-12-24 19:00] VITALS: BP 110/62
[2016-12-24] MEDS: SIMVASTATIN 20 MG TABLET PO SCH (21:24)
[2016-12-24] MEDS: ZOLPIDEM 5 MG TABLET. PO SCH (21:24)
[2016-12-24] MEDS: risperiDONE 0.25 MG TABLET. PO SCH (21:24)
[2016-12-24 23:00] VITALS: BP 112/60
[2016-12-25 03:00] VITALS: BP 104/57
[2016-12-25] MEDS: LEVOTHYROXINE 50 MCG TABLET PO SCH (06:28)
[2016-12-25 07:15] VITALS: BP 109/61
--- NOTE | 2016-12-25 08:06 | PDOC ---
SURGICAL PROGRESS NOTE Subjective tolerating diet loose stools no abdominal pain Vital Signs Vital Signs Date Time Temp Pulse Resp B/P (MAP) Pulse Ox O2 Delivery O2 Flow Rate FiO2 12/25/16 07:15 97.8 63 17 109/61 (77) 95 Room Air 97.8 I&O Intake and Output 12/25/16 07:00 Intake Total 900 ml Balance 900 ml Intake Oral 900 ml # Voids 6 General: Alert, Oriented X3, Cooperative, No acute distress Abdomen: Soft, No tenderness, Other (ND) Labs Laboratory Tests Test 12/23/16 08:40 12/24/16 09:18 Prothrombin Time 19.7 SEC (11.7-14.0) 22.1 SEC (11.7-14.0) Prothromb Time International Ratio 1.8 (0.8-1.1) 2.1 (0.8-1.1) Laboratory Tests Test 12/24/16 09:18 Prothrombin Time 22.1 SEC (11.7-14.0) Prothromb Time International Ratio 2.1 (0.8-1.1) Problem List abd pain, gastroenteritis tolerating diet, no pain no surgical needs Dc planning Problems: BRADLEY FRANCOIS APRN Dec 25, 2016 08:06
[2016-12-25] MEDS: DOMPERIDONE 10 MG PO SCH ×3 (08:19→17:12)
[2016-12-25] MEDS: PANTOPRAZOLE 40 MG TABLET.DR. PO SCH (08:20)
[2016-12-25] MEDS: CHOLECALCIFEROL (VITAMIN D3) 1,000 UNIT TABLET PO SCH (08:20)
[2016-12-25] MEDS: buPROPion 100 MG TABLET PO SCH (08:20)
[2016-12-25] MEDS: GABAPENTIN 300 MG CAPSULE. PO SCH ×3 (08:21→21:00)
[2016-12-25] MEDS: CYCLOBENZAPRINE 10 MG TABLET. PO SCH ×3 (08:21→21:00)
[2016-12-25] MEDS: HYDROcodone/APAP 5/325MG 1 TAB TABLET PO PRN ×3 (08:21→21:01)
[2016-12-25] MEDS: ASPIRIN 325 MG TABLET PO SCH (08:21)
--- NOTE | 2016-12-25 09:07 | PDOC ---
PROGRESS NOTES Chief Complaint Chief Complaint 1. BOwel obstruction,improving with conservative measures 2. Mult abd sxs, (hernia repair, yvonne/pyloropasty?) 3. SIRS POA no sepsis 4. Recent Rt knee TKA on coumadin x 30 days with INR at goal 5. Diarrhea, better 6. Mild hemoptysis History of Present Illness History of Present Illness Tolerated GI soft started monday lunch time Was able to go to the bathroom byv herself with walker! (she was very proud of it) wants a diff SNU on dc (claims Nayana squires shares same opinion). LOng time dw on weekend INR at goal (Goal inr post TKA is 1.6 -2.5 per pharmacy x 30d ays PLAN: COnt GI soft (tends to have GI upset real quick) SW consult for different SNU preference Otherwise medically ready to dc to snu with coumadin goal inr 1.6-2.5 for around 2 more weeks (total 30 days) - (s/p RT TKA) Vitals Vitals Vital Signs Date Time Temp Pulse Resp B/P (MAP) Pulse Ox O2 Delivery O2 Flow Rate FiO2 12/25/16 08:21 20 Room Air 12/25/16 07:15 97.8 63 109/61 (77) 95 97.8 Physical Exam General: Alert, Oriented X3, Cooperative, No acute distress Heart: Regular rate, Normal S1 Lungs: Clear, Other Abdomen: Soft, No tenderness, Other (ND) Extremities: No clubbing, No edema Skin: No rashes, No breakdown Labs LABS Laboratory Tests Test 12/24/16 09:18 Prothrombin Time 22.1 SEC (11.7-14.0) Prothromb Time International Ratio 2.1 (0.8-1.1) Review of Systems Review of Systems denies 14 pt Comment Review of Relevant I have reviewed the following items néstor (where applicable) has been applied. Labs Laboratory Tests Test 12/24/16 09:18 Prothrombin Time 22.1 SEC (11.7-14.0) Prothromb Time International Ratio 2.1 (0.8-1.1) Laboratory Tests Test 12/24/16 09:18 Prothrombin Time 22.1 SEC (11.7-14.0) Prothromb Time International Ratio 2.1 (0.8-1.1) Medications Current Medications Sodium Chloride 1,000 ml @ 1,000 mls/hr Q1H IV Last administered on 12/20/16 18:31; Start 12/20/16 at 18:18; Stop 12/20/16 at 19:17; Status DC Ondansetron HCl (Zofran) 4 mg 1X ONCE IV Last administered on 12/20/16 18:35 ; Start 12/20/16 at 18:30; Stop 12/20/16 at 18:31; Status DC Famotidine (Pepcid) 20 mg 1X ONCE IVP Last administered on 12/20/16 18:38; Start 12/20/16 at 18:30; Stop 12/20/16 at 18:31; Status DC Morphine Sulfate 5 mg 1X ONCE IV Last administered on 12/20/16 20:48; Start 12/20/16 at 20:30; Stop 12/20/16 at 20:31; Status DC Morphine Sulfate 4 mg PRN Q2HR PRN IV PAIN; Start 12/20/16 at 20:45; Stop 12/21 at 10:37; Status DC Ondansetron HCl (Zofran) 4 mg PRN Q6HRS PRN IV NAUSEA/VOMITING Last administered on 12/22/16 10:51; Start 12/20/16 at 20:45 Prochlorperazine Edisylate (Compazine) 10 mg TID PRN IV n/v; Start 12/20/16 at 20:45; Status UNV Enoxaparin Sodium (Lovenox 40mg Syringe) 40 mg QHS SQ Last administered on 12/23 21:04; Start 12/20/16 at 21:00; Stop 12/24/16 at 08:50; Status DC Lorazepam (Ativan) 1 mg PRN Q4HRS PRN IV ANXIETY / AGITATION Last administered on 12/20/16 23:13; Start 12/20/16 at 20:45 Diphenhydramine HCl (Benadryl) 25 mg PRN QHS PRN IVP sleep; Start 12/20/16 at 20:45 Amino Acids/ Glycerin/ Electrolytes 1,000 ml @ 80 mls/hr [id number] IV Last administered on 12/24/16 02:30; Start 12/20/16 at 20:45; Stop 12/24/16 at 12:24 ; Status DC Ondansetron HCl (Zofran) 4 mg PRN Q8HRS PRN IV NAUSEA/VOMITING; Start 12/20/16 at 20:45; Stop 12/21/16 at 11:39; Status DC Fentanyl Citrate (Fentanyl 2ml Vial) 50 mcg PRN Q2HR PRN IV PAIN Last administered on 12/21/16 13:14; Start 12/20/16 at 20:45; Stop 12/21/16 at 20:44 ; Status DC Sodium Chloride 1,000 ml @ 100 mls/hr Q10H IV Last administered on 12/21/16 06:52; Start 12/20/16 at 20:40; Stop 12/21/16 at 17:44; Status DC Acetaminophen (Tylenol) 650 mg PRN Q4HRS PRN PO FEVER; Start 12/20/16 at 20:45 ; Stop 12/21/16 at 20:44; Status DC Levothyroxine Sodium 25 mcg/ Sodium Chloride 5 ml @ 100 mls/hr DAILY IVP Last administered on 12/23/16 10:14; Start 12/21/16 at 09:00; Stop 12/23/16 at 10:31 ; Status DC Nitroglycerin (Nitrostat) 0.4 mg PRN Q5MIN PRN SL X 3 DOSES FOR CHEST PAIN Last administered on 12/20/16 22:57; Start 12/20/16 at 22:00 Throat Lozenges (Chloraseptic) 1 spray PRN Q2HR PRN PO SORE THROAT Last administered on 12/22/16 14:12; Start 12/21/16 at 08:00 Morphine Sulfate 4 mg PRN Q2HR PRN IV PAIN Last administered on 12/21/16 23:46 ; Start 12/21/16 at 10:45 Ondansetron HCl (Zofran) 4 mg PRN Q6HRS PRN IV NAUSEA/VOMITING; Start 12/21/16 at 11:36; Stop 12/22/16 at 11:35; Status DC Benzocaine (Hurricaine One) 1 spray PRN DAILY PRN MM pain Last administered on 12/21/16 12:09; Start 12/21/16 at 11:45; Stop 12/21/16 at 21:19; Status DC Iohexol (Omnipaque 240 Mg/ml) 30 ml 1X ONCE PO ; Start 12/21/16 at 12:30; Stop 12/21/16 at 12:31; Status DC Iohexol (Omnipaque 300 Mg/ml) 75 ml 1X ONCE IV Last administered on 12/21/16 12:30; Start 12/21/16 at 12:30; Stop 12/21/16 at 12:31; Status DC Info (Do NOT chart on this entry -- for MONITORING) 1 each PRN DAILY PRN MC SEE COMMENTS; Start 12/21/16 at 12:30; Stop 12/23/16 at 12:29; Status DC Famotidine (Pepcid) 20 mg BID IVP Last administered on 12/22/16 20:24; Start 12/21/16 at 21:00; Stop 12/23/16 at 10:11; Status DC Fentanyl Citrate (Fentanyl 2ml Vial) 50 mcg PRN Q2HR PRN IV PAIN Last administered on 12/23/16 02:47; Start 12/22/16 at 02:00 Warfarin Sodium (Coumadin Per Pharmacy) 1 each PRN DAILY PRN MC SEE COMMENTS Last administered on 12/24/16 13:47; Start 12/22/16 at 12:00 Warfarin Sodium (Coumadin) 5 mg 1X WARF ONCE PO ; Start 12/22/16 at 16:00; Stop 12/22/16 at 16:01; Status DC Nystatin (Nystop) 1 astrid BID TP Last administered on 12/24/16 21:24; Start at 21:00 Pantoprazole Sodium (Protonix) 40 mg DAILYAC PO Last administered on 12/25/16 08:20; Start 12/23/16 at 11:00 Al Hydroxide/Mg Hydroxide (Mylanta Plus Xs) 30 ml PRN Q2HR PRN PO HEARTBURN / GAS; Start 12/23/16 at 10:30 Levothyroxine Sodium (Synthroid) 50 mcg DAILY07 PO Last administered on 06:28; Start 12/24/16 at 07:00 Aspirin (Ale Aspirin) 325 mg DAILY PO Last administered on 12/25/16 08:21; Start 12/23/16 at 11:30 Bisacodyl (Dulcolax Supp) 10 mg PRN DAILY PRN RC CONSTIPATION; Start 12/23/16 at 10:30 Bupropion HCl (Wellbutrin) 150 mg DAILY PO Last administered on 12/25/16 08:20 ; Start 12/23/16 at 11:30 Cyclobenzaprine HCl (Flexeril) 10 mg TID PO Last administered on 12/25/16 08: 21; Start 12/23/16 at 14:00 Gabapentin (Neurontin) 300 mg TID PO Last administered on 12/25/16 08:21; Start 12/23/16 at 14:00 Guaifenesin (Mucinex) 600 mg PRN BID PRN PO SEE COMMENTS; Start 12/23/16 at 10: 30 Acetaminophen/ Hydrocodone Bitart (Lortab 5/325) 1 tab PRN Q6HRS PRN PO SEVERE PAIN Last administered on 12/25/16 08:21; Start 12/23/16 at 10:30 Sodium Monofluorophosphate (Fleet Adult) 133 ml PRN DAILY PRN RC CONSTIPATION; Start 12/23/16 at 10:30 Simvastatin (Zocor) 20 mg HS PO Last administered on 12/24/16 21:24; Start at 21:00 Tramadol HCl (Ultram) 50 mg PRN Q6HRS PRN PO MODERATE PAIN Last administered on 12/24/16 02:31; Start 12/23/16 at 10:30 Zolpidem Tartrate (Ambien) 5 mg HS PO Last administered on 12/24/16 21:24; Start 12/23/16 at 21:00 Alprazolam (Xanax) 0.5 mg PRN DAILY PRN PO ANXIETY / AGITATION Last administered on 12/24/16 08:17; Start 12/23/16 at 11:00 Non-Formulary Medication 100 ml per pain pump IJ ; Start 12/23/16 at 10:30 Acetaminophen/ Butalbital/ Caffeine (Fioricet) 1 tab PRN Q6HRS PRN PO MIGRAINE HEADACHE Last administered on 12/23/16 14:10; Start 12/23/16 at 11:00 Vitamin D (Vitamin D3) 2,000 unit DAILY PO Last administered on 12/25/16 08:20 ; Start 12/23/16 at 11:30 Risperidone (RisperDAL) 0.5 mg QHS PO Last administered on 12/24/16 21:24; Start 12/23/16 at 21:00 Non-Formulary Medication 20 mg TIDAC PO ; Start 12/23/16 at 11:30; Stop at 08:00; Status DC Warfarin Sodium (Coumadin) 5 mg 1X WARF ONCE PO Last administered on 17:03; Start 12/23/16 at 16:00; Stop 12/23/16 at 16:01; Status DC Warfarin Sodium (Coumadin) 4 mg 1X WARF ONCE PO Last administered on 17:03; Start 12/24/16 at 16:00; Stop 12/24/16 at 16:01; Status DC Non-Formulary Medication 2 ea TIDAC PO Last administered on 12/25/16 08:19; Start 12/24/16 at 17:00 Active Scripts Active Reported Dulcolax (Bisacodyl) 10 Mg Supp.rect 10 Mg RC PRN DAILY PRN Fleet Enema (Na Phos,M-B/Na Phos,Di-Ba) 133 Ml Enema 1 Each RC DAILY PRN Tramadol Hcl 50 Mg Tablet 2 Tab PO PRN Q3HRS PRN Tramadol Hcl 50 Mg Tablet 1 Tab PO PRN Q6HRS Mucinex (Guaifenesin) 600 Mg Tablet.er 1 Tab PO BID PRN Coumadin (Warfarin Sodium) 5 Mg Tablet 1 Tab PO DAILY Protonix (Pantoprazole Sodium) 40 Mg Tablet.dr 1 Tab PO DAILY Levothyroxine Sodium 50 Mcg Tablet 1 Tab PO DAILY Senna Plus Tablet (Sennosides/Docusate Sodium) 1 Each Tablet 1 Tab PO DAILY Vitamin D (Cholecalciferol (Vitamin D3)) 2,000 Unit Capsule 2,000 Unit PO TID Cyclobenzaprine Hcl 10 Mg Tablet 10 Mg PO TID Lortab 5-325 mg Tablet (Hydrocodone/Acetaminophen) 1 Each Tablet 1 Tab PO PRN Q6HRS PRN Fioricet 50-300-40 Mg Capsule (Butalb/Acetaminophen/Caffeine) 1 Each Capsule 1 Each PO PRN Q4HRS PRN Gabapentin 100 Mg Capsule 300 Mg PO TID [gi cocktail] 500 Mg PO PRN PRN [Clonidine/Pump] [Fentanyl/Pump] Aspirin 325 Mg Tablet 1 Tab PO DAILY Bupivacaine 0.25% On-Q Pump (Bupivacaine Hcl/Pf) 100 Ml Els.sales engagement executive.fr 100 Ml IJ PER PAIN PUMP Alprazolam 0.5 Mg Tab.rapdis 0.5 Mg PO PRN Zofran Odt (Ondansetron) 8 Mg Tab.rapdis 8 Mg PO PRN Ambien (Zolpidem Tartrate) 5 Mg Tablet 5 Mg PO HS Risperdal (Risperidone) 0.5 Mg Tablet 0.5 Mg PO HS [domperadone] 10mg Tablet 20 Mg PO TIDAC Omeprazole 40 Mg Capsule.dr 40 Mg PO BID Zocor (Simvastatin) 20 Mg Tablet 20 Mg PO HS Wellbutrin (Bupropion Hcl) 100 Mg Tablet 150 Mg PO DAILY Levothyroxine Sodium 25 Mcg Tablet 50 Mcg PO DAILY Vitals/I & O Vital Sign - Last 24 Hours 12/24/16 12/24/16 12/24/16 12/24/16 11:30 15:21 15:57 16:57 Temp 97.5 97.9 97.5 97.9 Pulse 70 75 Resp 20 20 20 20 B/P (MAP) 90/56 (67) 105/63 (77) Pulse Ox 93 96 O2 Delivery BiPAP/CPAP BiPAP/CPAP Room Air Room Air 12/24/16 12/24/16 12/24/16 12/25/16 19:00 20:00 23:00 03:00 Temp 96.3 97.3 97.7 96.3 97.3 97.7 Pulse 60 79 70 Resp 17 19 18 B/P (MAP) 110/62 (78) 112/60 (77) 104/57 (73) Pulse Ox 97 96 95 O2 Delivery Room Air Room Air BiPAP/CPAP BiPAP/CPAP 12/25/16 12/25/16 12/25/16 07:15 08:00 08:21 Temp 97.8 97.8 Pulse 63 Resp 17 20 B/P (MAP) 109/61 (77) Pulse Ox 95 O2 Delivery Room Air Room Air Room Air Intake and Output 12/24/16 12/24/16 12/25/16 15:00 23:00 07:00 Intake Total 900 ml Balance 900 ml SANGEETA BARKLEY MD Dec 25, 2016 09:07
[2016-12-25 09:21] LABS: BASO # 0.1 x10^3/uL (0.0-0.2); BASO % 1 % (0-3); EOS % 4 % (0-3); HEMATOCRIT 30.3 % (36.0-47.0); LYMPH # 2.6 x10^3/uL (1.0-4.8); LYMPH % 34 % (24-48); MEAN CORPUSCULAR HEMOGLOBIN 29 pg (25-35); MEAN CORPUSCULAR HGB CONC 33 g/dL (31-37); MEAN CORPUSCULAR VOLUME 88 fL (79-100); MONO % 13 % (0-9); NEUT % 49 % (31-73); PLATELET COUNT 575 x10^3/uL (140-400); RED BLOOD COUNT 3.45 x10^6/uL (3.50-5.40); RED CELL DISTRIBUTION WIDTH 18.8 % (11.5-14.5); WHITE BLOOD COUNT 7.8 x10^3/uL (4.0-11.0)
[2016-12-25 09:25] LABS: CALCIUM 8.7 mg/dL (8.5-10.1); CREATININE 0.9 mg/dL (0.6-1.0); GFR 61.7; POTASSIUM 3.9 mmol/L (3.5-5.1)
[2016-12-25 09:31] LABS: INR 2.3 (0.8-1.1); PROTHROMBIN TIME PATIENT 23.5 SEC (11.7-14.0)
[2016-12-25 10:38] VITALS: BP 125/74
[2016-12-25] MEDS: ALPRAZolam 0.5 MG TABLET PO PRN (12:41)
[2016-12-25] MEDS: traMADol 50 MG TABLET PO PRN ×2 (12:41→23:55)
[2016-12-25] MEDS: NYSTATIN TOPICAL POWDER 15GM BOTTLE. TP SCH ×2 (12:42→21:00)
[2016-12-25 15:22] VITALS: BP 106/62
[2016-12-25] MEDS ORDERED: WARFARIN 4 MG TABLET. PO ONE (16:00)
[2016-12-25 19:00] VITALS: BP 122/68
[2016-12-25] MEDS: ZOLPIDEM 5 MG TABLET. PO SCH (21:00)
[2016-12-25] MEDS: SIMVASTATIN 20 MG TABLET PO SCH (21:01)
[2016-12-25] MEDS: risperiDONE 0.25 MG TABLET. PO SCH (21:01)
[2016-12-25] MEDS: FLUCONAZOLE 100 MG TABLET. PO SCH (21:01)
[2016-12-25 23:00] VITALS: BP 115/62
[2016-12-26 03:00] VITALS: BP 108/60
[2016-12-26] MEDS: LEVOTHYROXINE 50 MCG TABLET PO SCH (06:41)
[2016-12-26 07:00] VITALS: BP 129/72
[2016-12-26] MEDS: CYCLOBENZAPRINE 10 MG TABLET. PO SCH ×3 (08:17→21:00)
[2016-12-26] MEDS: HYDROcodone/APAP 5/325MG 1 TAB TABLET PO PRN ×3 (08:17→23:47)
[2016-12-26] MEDS: PANTOPRAZOLE 40 MG TABLET.DR. PO SCH (08:17)
[2016-12-26] MEDS: CHOLECALCIFEROL (VITAMIN D3) 1,000 UNIT TABLET PO SCH (08:18)
[2016-12-26] MEDS: GABAPENTIN 300 MG CAPSULE. PO SCH ×3 (08:18→20:50)
[2016-12-26] MEDS: buPROPion 100 MG TABLET PO SCH (08:18)
[2016-12-26] MEDS: FLUCONAZOLE 100 MG TABLET. PO SCH ×2 (08:18→20:50)
[2016-12-26] MEDS: ASPIRIN 325 MG TABLET PO SCH (08:18)
[2016-12-26] MEDS: DOMPERIDONE 10 MG PO SCH ×3 (08:21→15:57)
[2016-12-26] MEDS: NYSTATIN TOPICAL POWDER 15GM BOTTLE. TP SCH ×2 (08:22→21:01)
[2016-12-26] MEDS ORDERED: HYDR-2758 PO (10:10)
[2016-12-26 11:00] VITALS: BP 115/66
--- NOTE | 2016-12-26 11:04 | PDOC ---
Subjective: Subjective: Feeling much better. Tolerating PO w/o abd pain, stooling normally. Plans to DC to [place] or [facility]. Objective: Vital Signs: Vital Signs Date Time Temp Pulse Resp B/P (MAP) Pulse Ox O2 Delivery O2 Flow Rate FiO2 12/26/16 08:25 Room Air 12/26/16 07:00 99.7 74 20 129/72 (91) 94 99.7 PE: GEN: NAD, looks much better LUNGS: CTAB HEART: RRR ABD: NABS, S/ND/NT NEURO/PSYCH: A & O 3 A/P: Hernia containing colon (on CT 12/21/16) -obstructive symptoms resolved -surg following Anemia, gastric occult positive, hematemesis (resolved) -recent knee surg on Warfarin -last EGD 2013, colonoscopy 2014 ---> h/o GERD, gastroparesis, diverticulosis, hemorrhoids -on PPI, Domperidone -- Improved. DC per primary. KAM DAMON Dec 26, 2016 11:04
[2016-12-26] MEDS: traMADol 50 MG TABLET PO PRN ×2 (13:01→18:33)
--- NOTE | 2016-12-26 13:13 | PDOC ---
SURGICAL PROGRESS NOTE Subjective Pt feels better, eldon PO well, having stools, min abd pain Vital Signs Vital Signs Date Time Temp Pulse Resp B/P (MAP) Pulse Ox O2 Delivery O2 Flow Rate FiO2 12/26/16 13:01 Room Air 12/26/16 11:00 99.5 72 18 115/66 (82) 93 99.5 I&O Intake and Output 12/26/16 07:00 Intake Total 420 ml Balance 420 ml Intake Oral 420 ml # Voids 4 General: Alert, Oriented X3, Cooperative, No acute distress Abdomen: Soft, No tenderness Labs Laboratory Tests Test 12/25/16 08:13 White Blood Count 7.8 x10^3/uL (4.0-11.0) Red Blood Count 3.45 x10^6/uL (3.50-5.40) Hemoglobin 10.0 g/dL (12.0-15.5) Hematocrit 30.3 % (36.0-47.0) Mean Corpuscular Volume 88 fL (79-100) Mean Corpuscular Hemoglobin 29 pg (25-35) Mean Corpuscular Hemoglobin Concent 33 g/dL (31-37) Red Cell Distribution Width 18.8 % (11.5-14.5) Platelet Count 575 x10^3/uL (140-400) Neutrophils (%) (Auto) 49 % (31-73) Lymphocytes (%) (Auto) 34 % (24-48) Monocytes (%) (Auto) 13 % (0-9) Eosinophils (%) (Auto) 4 % (0-3) Basophils (%) (Auto) 1 % (0-3) Neutrophils # (Auto) 3.8 x10^3uL (1.8-7.7) Lymphocytes # (Auto) 2.6 x10^3/uL (1.0-4.8) Monocytes # (Auto) 1.0 x10^3/uL (0.0-1.1) Eosinophils # (Auto) 0.3 x10^3/uL (0.0-0.7) Basophils # (Auto) 0.1 x10^3/uL (0.0-0.2) Prothrombin Time 23.5 SEC (11.7-14.0) Prothromb Time International Ratio 2.3 (0.8-1.1) Sodium Level 138 mmol/L (136-145) Potassium Level 3.9 mmol/L (3.5-5.1) Chloride Level 103 mmol/L (98-107) Carbon Dioxide Level 25 mmol/L (21-32) Anion Gap 10 (6-14) Blood Urea Nitrogen 12 mg/dL (7-20) Creatinine 0.9 mg/dL (0.6-1.0) Estimated GFR (Cockcroft-Gault) 61.7 Glucose Level 141 mg/dL (70-99) Calcium Level 8.7 mg/dL (8.5-10.1) Problem List gastroenteritis, resolving doing well, eldon diet OK to d/c f/u PRN to consider hernia repair Problems: KEENA DEVLIN MD Dec 26, 2016 13:13
[2016-12-26 15:00] VITALS: BP 122/69
[2016-12-26] MEDS ORDERED: WARFARIN 4 MG TABLET. PO SCH (16:00)
[2016-12-26 19:00] VITALS: BP 130/68
[2016-12-26] MEDS: risperiDONE 0.25 MG TABLET. PO SCH (20:50)
[2016-12-26] MEDS: SIMVASTATIN 20 MG TABLET PO SCH (20:51)
[2016-12-26] MEDS: ZOLPIDEM 5 MG TABLET. PO SCH (20:51)
[2016-12-26 23:07] VITALS: BP 108/56
[2016-12-27] MEDS: traMADol 50 MG TABLET PO PRN (00:32)
[2016-12-27 02:51] VITALS: BP 111/73
[2016-12-27 07:00] VITALS: BP 118/82
[2016-12-27] MEDS: LEVOTHYROXINE 50 MCG TABLET PO SCH (07:00)
[2016-12-27] MEDS: PANTOPRAZOLE 40 MG TABLET.DR. PO SCH (07:30)
[2016-12-27] MEDS: DOMPERIDONE 10 MG PO SCH (07:30)
[2016-12-27] MEDS: NYSTATIN TOPICAL POWDER 15GM BOTTLE. TP SCH (09:00)
[2016-12-27] MEDS: ASPIRIN 325 MG TABLET PO SCH (09:00)
[2016-12-27] MEDS: FLUCONAZOLE 100 MG TABLET. PO SCH (09:00)
[2016-12-27] MEDS: GABAPENTIN 300 MG CAPSULE. PO SCH (09:00)
[2016-12-27] MEDS: CHOLECALCIFEROL (VITAMIN D3) 1,000 UNIT TABLET PO SCH (09:00)
[2016-12-27] MEDS: CYCLOBENZAPRINE 10 MG TABLET. PO SCH (09:00)
[2016-12-27] MEDS: buPROPion 100 MG TABLET PO SCH (09:00)
--- NOTE | 2016-12-27 09:45 | PDOC ---
SURGICAL PROGRESS NOTE Subjective Pt with c/o left knee pain, eldon diet well, min abd pain, having normal stools. Vital Signs Vital Signs Date Time Temp Pulse Resp B/P (MAP) Pulse Ox O2 Delivery O2 Flow Rate FiO2 12/27/16 07:00 97.8 75 20 118/82 (94) 93 Room Air 97.8 General: Alert, Oriented X3, Cooperative, No acute distress Abdomen: Soft, No tenderness Assessment/Plan ileus vs SBO, favor gastroenteritis, improved cont supportive care, agree with tx to rehab d/w pt and pt's , f/u PRN Problems: KEENA DEVLIN MD Dec 27, 2016 09:45
[2016-12-27] MEDS: HYDROcodone/APAP 5/325MG 1 TAB TABLET PO PRN (10:47)
--- NOTE | 2016-12-27 10:52 | PDOC ---
Subjective: Subjective: No GI complaints. Going to [facility] today. present, has questions. Objective: Vital Signs: Vital Signs Date Time Temp Pulse Resp B/P (MAP) Pulse Ox O2 Delivery O2 Flow Rate FiO2 12/27/16 10:47 Room Air 12/27/16 07:00 97.8 75 20 118/82 (94) 93 97.8 PE: GEN: NAD, up to chair LUNGS: CTAB HEART: RRR ABD: NABS, S/ND/NT NEURO/PSYCH: A & O 3 A/P: Anemia (stable), gastric occult positive, hematemesis (resolved) -recent knee surg on Warfarin -last EGD 2013, colonoscopy 2014 -h/o GERD, gastroparesis, diverticulosis, hemorrhoids ---> on PPI, Domperidone Hernia containing colon (on CT 12/21/16) -had NG, obstructive symptoms resolved, surgery has seen -- Improved. DC per primary. Continue current GI meds. KAM DAMON Dec 27, 2016 10:52
--- NOTE | 2016-12-27 11:30 | PDOC ---
PROGRESS NOTES Chief Complaint Chief Complaint late entry, from 12.26, had been initiated to DC to rehab 1. BOwel obstruction,improving with conservative measures 2. Mult abd sxs, (hernia repair, yvonne/pyloropasty?) 3. SIRS POA no sepsis 4. Recent Rt knee TKA on coumadin x 30 days with INR at goal 5. Diarrhea, better 6. Mild hemoptysis History of Present Illness History of Present Illness Tolerated GI soft up with walker, plan to SNU, prov place or resort INR at goal (Goal inr post TKA is 1.6 -2.5 per pharmacy x 30d ays SW consult for different SNU preference Vitals Vitals Vital Signs Date Time Temp Pulse Resp B/P (MAP) Pulse Ox O2 Delivery O2 Flow Rate FiO2 12/27/16 10:47 Room Air 12/27/16 07:00 97.8 75 20 118/82 (94) 93 97.8 Physical Exam General: Alert, Oriented X3, Cooperative, No acute distress Heart: Regular rate, Normal S1 Lungs: Clear, Other Abdomen: Soft, No tenderness Extremities: No clubbing, No edema Skin: No rashes, No breakdown Comment Review of Relevant I have reviewed the following items néstor (where applicable) has been applied. Medications Current Medications Sodium Chloride 1,000 ml @ 1,000 mls/hr Q1H IV Last administered on 12/20/16 18:31; Start 12/20/16 at 18:18; Stop 12/20/16 at 19:17; Status DC Ondansetron HCl (Zofran) 4 mg 1X ONCE IV Last administered on 12/20/16 18:35 ; Start 12/20/16 at 18:30; Stop 12/20/16 at 18:31; Status DC Famotidine (Pepcid) 20 mg 1X ONCE IVP Last administered on 12/20/16 18:38; Start 12/20/16 at 18:30; Stop 12/20/16 at 18:31; Status DC Morphine Sulfate 5 mg 1X ONCE IV Last administered on 12/20/16 20:48; Start 12/20/16 at 20:30; Stop 12/20/16 at 20:31; Status DC Morphine Sulfate 4 mg PRN Q2HR PRN IV PAIN; Start 12/20/16 at 20:45; Stop 12/21 at 10:37; Status DC Ondansetron HCl (Zofran) 4 mg PRN Q6HRS PRN IV NAUSEA/VOMITING Last administered on 12/22/16 10:51; Start 12/20/16 at 20:45 Prochlorperazine Edisylate (Compazine) 10 mg TID PRN IV n/v; Start 12/20/16 at 20:45; Status UNV Enoxaparin Sodium (Lovenox 40mg Syringe) 40 mg QHS SQ Last administered on 12/23 21:04; Start 12/20/16 at 21:00; Stop 12/24/16 at 08:50; Status DC Lorazepam (Ativan) 1 mg PRN Q4HRS PRN IV ANXIETY / AGITATION Last administered on 12/20/16 23:13; Start 12/20/16 at 20:45 Diphenhydramine HCl (Benadryl) 25 mg PRN QHS PRN IVP sleep; Start 12/20/16 at 20:45 Amino Acids/ Glycerin/ Electrolytes 1,000 ml @ 80 mls/hr [id number] IV Last administered on 12/24/16 02:30; Start 12/20/16 at 20:45; Stop 12/24/16 at 12:24 ; Status DC Ondansetron HCl (Zofran) 4 mg PRN Q8HRS PRN IV NAUSEA/VOMITING; Start 12/20/16 at 20:45; Stop 12/21/16 at 11:39; Status DC Fentanyl Citrate (Fentanyl 2ml Vial) 50 mcg PRN Q2HR PRN IV PAIN Last administered on 12/21/16 13:14; Start 12/20/16 at 20:45; Stop 12/21/16 at 20:44 ; Status DC Sodium Chloride 1,000 ml @ 100 mls/hr Q10H IV Last administered on 12/21/16 06:52; Start 12/20/16 at 20:40; Stop 12/21/16 at 17:44; Status DC Acetaminophen (Tylenol) 650 mg PRN Q4HRS PRN PO FEVER; Start 12/20/16 at 20:45 ; Stop 12/21/16 at 20:44; Status DC Levothyroxine Sodium 25 mcg/ Sodium Chloride 5 ml @ 100 mls/hr DAILY IVP Last administered on 12/23/16 10:14; Start 12/21/16 at 09:00; Stop 12/23/16 at 10:31 ; Status DC Nitroglycerin (Nitrostat) 0.4 mg PRN Q5MIN PRN SL X 3 DOSES FOR CHEST PAIN Last administered on 12/20/16 22:57; Start 12/20/16 at 22:00 Throat Lozenges (Chloraseptic) 1 spray PRN Q2HR PRN PO SORE THROAT Last administered on 12/22/16 14:12; Start 12/21/16 at 08:00 Morphine Sulfate 4 mg PRN Q2HR PRN IV PAIN Last administered on 12/21/16 23:46 ; Start 12/21/16 at 10:45 Ondansetron HCl (Zofran) 4 mg PRN Q6HRS PRN IV NAUSEA/VOMITING; Start 12/21/16 at 11:36; Stop 12/22/16 at 11:35; Status DC Benzocaine (Hurricaine One) 1 spray PRN DAILY PRN MM pain Last administered on 12/21/16 12:09; Start 12/21/16 at 11:45; Stop 12/21/16 at 21:19; Status DC Iohexol (Omnipaque 240 Mg/ml) 30 ml 1X ONCE PO ; Start 12/21/16 at 12:30; Stop 12/21/16 at 12:31; Status DC Iohexol (Omnipaque 300 Mg/ml) 75 ml 1X ONCE IV Last administered on 12/21/16 12:30; Start 12/21/16 at 12:30; Stop 12/21/16 at 12:31; Status DC Info (Do NOT chart on this entry -- for MONITORING) 1 each PRN DAILY PRN MC SEE COMMENTS; Start 12/21/16 at 12:30; Stop 12/23/16 at 12:29; Status DC Famotidine (Pepcid) 20 mg BID IVP Last administered on 12/22/16 20:24; Start 12/21/16 at 21:00; Stop 12/23/16 at 10:11; Status DC Fentanyl Citrate (Fentanyl 2ml Vial) 50 mcg PRN Q2HR PRN IV PAIN Last administered on 12/23/16 02:47; Start 12/22/16 at 02:00 Warfarin Sodium (Coumadin Per Pharmacy) 1 each PRN DAILY PRN MC SEE COMMENTS Last administered on 12/26/16 11:33; Start 12/22/16 at 12:00 Warfarin Sodium (Coumadin) 5 mg 1X WARF ONCE PO ; Start 12/22/16 at 16:00; Stop 12/22/16 at 16:01; Status DC Nystatin (Nystop) 1 astrid BID TP Last administered on 12/26/16 21:01; Start at 21:00 Pantoprazole Sodium (Protonix) 40 mg DAILYAC PO Last administered on 12/26/16 08:17; Start 12/23/16 at 11:00 Al Hydroxide/Mg Hydroxide (Mylanta Plus Xs) 30 ml PRN Q2HR PRN PO HEARTBURN / GAS; Start 12/23/16 at 10:30 Levothyroxine Sodium (Synthroid) 50 mcg DAILY07 PO Last administered on 06:41; Start 12/24/16 at 07:00 Aspirin (Ale Aspirin) 325 mg DAILY PO Last administered on 12/26/16 08:18; Start 12/23/16 at 11:30 Bisacodyl (Dulcolax Supp) 10 mg PRN DAILY PRN RC CONSTIPATION; Start 12/23/16 at 10:30 Bupropion HCl (Wellbutrin) 150 mg DAILY PO Last administered on 12/26/16 08:18 ; Start 12/23/16 at 11:30 Cyclobenzaprine HCl (Flexeril) 10 mg TID PO Last administered on 12/26/16 21: 00; Start 12/23/16 at 14:00 Gabapentin (Neurontin) 300 mg TID PO Last administered on 12/26/16 20:50; Start 12/23/16 at 14:00 Guaifenesin (Mucinex) 600 mg PRN BID PRN PO SEE COMMENTS; Start 12/23/16 at 10: 30 Acetaminophen/ Hydrocodone Bitart (Lortab 5/325) 1 tab PRN Q6HRS PRN PO SEVERE PAIN Last administered on 12/27/16 10:47; Start 12/23/16 at 10:30 Sodium Monofluorophosphate (Fleet Adult) 133 ml PRN DAILY PRN RC CONSTIPATION; Start 12/23/16 at 10:30 Simvastatin (Zocor) 20 mg HS PO Last administered on 12/26/16 20:51; Start at 21:00 Tramadol HCl (Ultram) 50 mg PRN Q6HRS PRN PO MODERATE PAIN Last administered on 12/27/16 00:32; Start 12/23/16 at 10:30 Zolpidem Tartrate (Ambien) 5 mg HS PO Last administered on 12/26/16 20:51; Start 12/23/16 at 21:00 Alprazolam (Xanax) 0.5 mg PRN DAILY PRN PO ANXIETY / AGITATION Last administered on 12/25/16 12:41; Start 12/23/16 at 11:00 Non-Formulary Medication 100 ml per pain pump IJ ; Start 12/23/16 at 10:30 Acetaminophen/ Butalbital/ Caffeine (Fioricet) 1 tab PRN Q6HRS PRN PO MIGRAINE HEADACHE Last administered on 12/23/16 14:10; Start 12/23/16 at 11:00 Vitamin D (Vitamin D3) 2,000 unit DAILY PO Last administered on 12/26/16 08:18 ; Start 12/23/16 at 11:30 Risperidone (RisperDAL) 0.5 mg QHS PO Last administered on 12/26/16 20:50; Start 12/23/16 at 21:00 Non-Formulary Medication 20 mg TIDAC PO ; Start 12/23/16 at 11:30; Stop at 08:00; Status DC Warfarin Sodium (Coumadin) 5 mg 1X WARF ONCE PO Last administered on 17:03; Start 12/23/16 at 16:00; Stop 12/23/16 at 16:01; Status DC Warfarin Sodium (Coumadin) 4 mg 1X WARF ONCE PO Last administered on 17:03; Start 12/24/16 at 16:00; Stop 12/24/16 at 16:01; Status DC Non-Formulary Medication 2 ea TIDAC PO Last administered on 12/26/16 15:57; Start 12/24/16 at 17:00 Warfarin Sodium (Coumadin) 4 mg 1X WARF ONCE PO Last administered on 17:11; Start 12/25/16 at 16:00; Stop 12/25/16 at 16:01; Status DC Fluconazole (Diflucan) 100 mg BID PO Last administered on 12/26/16 20:50; Start 12/25/16 at 21:00 Warfarin Sodium (Coumadin) 4 mg DAILY16 PO Last administered on 12/26/16 15:56 ; Start 12/26/16 at 16:00; Stop 01/01/17 at 15:59 Active Scripts Active Hydrocodone-Apap 5-325 (Hydrocodone Bit/Acetaminophen) 1 Each Tablet 1 Tab PO PRN Q6HRS PRN Reported Dulcolax (Bisacodyl) 10 Mg Supp.rect 10 Mg RC PRN DAILY PRN Fleet Enema (Na Phos,M-B/Na Phos,Di-Ba) 133 Ml Enema 1 Each RC DAILY PRN Tramadol Hcl 50 Mg Tablet 2 Tab PO PRN Q3HRS PRN Tramadol Hcl 50 Mg Tablet 1 Tab PO PRN Q6HRS Mucinex (Guaifenesin) 600 Mg Tablet.er 1 Tab PO BID PRN Coumadin (Warfarin Sodium) 5 Mg Tablet 1 Tab PO DAILY Protonix (Pantoprazole Sodium) 40 Mg Tablet.dr 1 Tab PO DAILY Levothyroxine Sodium 50 Mcg Tablet 1 Tab PO DAILY Senna Plus Tablet (Sennosides/Docusate Sodium) 1 Each Tablet 1 Tab PO DAILY Vitamin D (Cholecalciferol (Vitamin D3)) 2,000 Unit Capsule 2,000 Unit PO TID Cyclobenzaprine Hcl 10 Mg Tablet 10 Mg PO TID Lortab 5-325 mg Tablet (Hydrocodone/Acetaminophen) 1 Each Tablet 1 Tab PO PRN Q6HRS PRN Fioricet 50-300-40 Mg Capsule (Butalb/Acetaminophen/Caffeine) 1 Each Capsule 1 Each PO PRN Q4HRS PRN Gabapentin 100 Mg Capsule 300 Mg PO TID [gi cocktail] 500 Mg PO PRN PRN [Clonidine/Pump] [Fentanyl/Pump] Aspirin 325 Mg Tablet 1 Tab PO DAILY Bupivacaine 0.25% On-Q Pump (Bupivacaine Hcl/Pf) 100 Ml Els.body welder.fr 100 Ml IJ PER PAIN PUMP Alprazolam 0.5 Mg Tab.rapdis 0.5 Mg PO PRN Zofran Odt (Ondansetron) 8 Mg Tab.rapdis 8 Mg PO PRN Ambien (Zolpidem Tartrate) 5 Mg Tablet 5 Mg PO HS Risperdal (Risperidone) 0.5 Mg Tablet 0.5 Mg PO HS [domperadone] 10mg Tablet 20 Mg PO TIDAC Omeprazole 40 Mg Capsule.dr 40 Mg PO BID Zocor (Simvastatin) 20 Mg Tablet 20 Mg PO HS Wellbutrin (Bupropion Hcl) 100 Mg Tablet 150 Mg PO DAILY Levothyroxine Sodium 25 Mcg Tablet 50 Mcg PO DAILY Vitals/I & O Vital Sign - Last 24 Hours 12/26/16 12/26/16 12/26/16 12/26/16 13:01 15:00 15:13 16:15 Temp 98.1 98.1 Pulse 76 Resp 20 B/P (MAP) 122/69 (86) Pulse Ox 94 O2 Delivery Room Air Room Air Room Air Room Air 12/26/16 12/26/16 12/26/16 12/26/16 18:33 19:00 20:00 23:07 Temp 98.2 97.7 98.2 97.7 Pulse 71 68 Resp 18 20 B/P (MAP) 130/68 (88) 108/56 (73) Pulse Ox 97 98 O2 Delivery Room Air Room Air Room Air BiPAP/CPAP 12/26/16 12/27/16 12/27/16 12/27/16 23:47 00:32 01:32 02:51 Temp 97.5 97.5 Pulse 72 Resp 20 B/P (MAP) 111/73 (86) Pulse Ox 94 O2 Delivery Room Air Room Air Room Air Room Air 12/27/16 12/27/16 07:00 10:47 Temp 97.8 97.8 Pulse 75 Resp 20 B/P (MAP) 118/82 (94) Pulse Ox 93 O2 Delivery Room Air Room Air CHIVO WATSON MD Dec 27, 2016 11:30
== END 2016-12-27 11:00 | disposition home or self-care (01) | DRG 389 ==
LOC: ER 17:46 → 4 NORTH 19:35
PROVIDERS: ADMIT Internal Medicine; ATTEND Internal Medicine
DX: K56.60 Unspecified intestinal obstruction (principal); A09 Infectious gastroenteritis and colitis, unspecified; E44.0 Moderate protein-calorie malnutrition; R65.10 Systemic inflammatory response syndrome (SIRS) of non-infectious origin without acute organ dysfunction; R04.2 Hemoptysis; K31.84 Gastroparesis; D64.9 Anemia, unspecified; G43.909 Migraine, unspecified, not intractable, without status migrainosus; G89.29 Other chronic pain; K21.0 Gastro-esophageal reflux disease with esophagitis; M19.90 Unspecified osteoarthritis, unspecified site; Z96.651 Presence of right artificial knee joint; I10 Essential (primary) hypertension; K21.9 Gastro-esophageal reflux disease without esophagitis; Z96.649 Presence of unspecified artificial hip joint; E03.9 Hypothyroidism, unspecified; E78.5 Hyperlipidemia, unspecified; F32.9 Major depressive disorder, single episode, unspecified; K43.9 Ventral hernia without obstruction or gangrene; K57.90 Diverticulosis of intestine, part unspecified, without perforation or abscess without bleeding; F41.9 Anxiety disorder, unspecified; Z82.3 Family history of stroke; Z82.49 Family history of ischemic heart disease and other diseases of the circulatory system; Z86.73 Personal history of transient ischemic attack (TIA), and cerebral infarction without residual deficits; Z88.5 Allergy status to narcotic agent; Z88.8 Allergy status to other drugs, medicaments and biological substances; Z88.1 Allergy status to other antibiotic agents; Z91.040 Latex allergy status; Z90.49 Acquired absence of other specified parts of digestive tract; Z90.89 Acquired absence of other organs
CPT/HCPCS: 36415; 36600; 43752; 74022; 74177; 80048; 80053; 81001; 82271; 82274; 82553; 82805; 83605; 83690; 84484; 85025; 85610; 85730; 87641; 93005; 96361; 96374; 96375; J1650; J2060; J2270; J2405; J3010; J7030; Q9967; S0028; 97110; 97116; 97530; 97535; 99285-25

== ENCOUNTER → 2017-02-01 | Outpatient (CLI) | payer MEDICARE, OTHER ==
[~2017-02-01] MED LIST changes: +BISA10SU55 RC; +BUPIVACAINE MPF 0.75% 30 ML VIAL. ONE; +GUAI600T47 PO; +LEVO50TA5 PO; +LIDOCAINE/PRILOCAINE TOPICAL CREAM 5GM TUBE. TP ONE; +NA P133E2 RC; +PANT40TA3 PO; +SENN1TAB21 PO; +TRAM50TA PO; +WARF-78 PO; +cloNIDine PF 5,000 MCG/10 ML VIAL EP ONE; +fentaNYL PF VIAL 250 MCG/5 ML VIAL ONE
--- NOTE | 2017-02-02 04:43 | PAIN ---
DATE OF SERVICE: 02/01/2017 PROGRESS NOTE FOR PAIN CLINIC DIAGNOSES: 1. Cervical radiculopathy with post-cervical laminectomy syndrome. 2. Bilateral knee joint pain with osteoarthritis. 3. Bilateral hip joint pain with osteoarthritis of the hips. 4. Lumbar degenerative disk disease with intrathecal therapy and spinal cord stimulator therapy. HISTORY OF PRESENT ILLNESS: The patient is a 71-year-old female who returns for followup status post medication management as well as intrathecal pump therapy, spinal cord stimulator therapy and knee joint injections. The patient has recently had her right knee replaced ____ doing well. Reports good rehab and good treatment with her facilities and her rehabilitation is coming along very well on the right knee, still having some significant pain in neck, upper back, shoulders as well as low back and extremities, but fairly well controlled with her intrathecal pump and spinal cord stimulator combination. The patient reports no new motor or sensory deficits, no new bowel or bladder incontinence or other complaints and again some pain with her right knee secondary to rehab, but doing quite well. The patient reports she has not been using her PTM very often as she has been through therapy and is doing quite well with it. The patient reports her pain is a 6 on a scale of 10, it is worse at a 3, on average at 2 at least with sitting, worse in the evenings when she has been up and around with pain in the base of the neck and shoulder as her primary complaint. The patient reports it is burning, radiating off and on now and again well controlled with her intrathecal pump therapy and spinal cord stimulator therapy for the low back and legs. The patient reports no new motor or sensory deficits, no new bowel or bladder incontinence or other complaints. PHYSICAL EXAMINATION: VITAL SIGNS: Shows blood pressure of 138/90, pulse 81, respirations are 20, temperature 98.6 degrees Fahrenheit. Weight is 201 pounds. GENERAL: The patient is awake, alert, oriented, appropriate, very pleasant demeanor. The patient is accompanied by her spouse. HEENT: Shows normocephalic, atraumatic. Extraocular movements are intact and symmetrical. Oral cavity shows mucous membranes moist and pink. The patient wears eye glasses. NECK: Shows anterior throat supple without palpable lymphadenopathy noted. Swallow reflex is symmetrical. CHEST: Shows normal on inspection. Breath sounds are clear to auscultation bilaterally. HEART: Shows S1 and S2 clear. ABDOMEN: Obese, soft, nontender, nondistended. The patient does have a noticeable hernia in the left upper quadrant, which is reducible and without significant tenderness. Well-healed surgical scars noted in the midline. The patient has easily detected intrathecal pump on the left side and left lower quadrant, which is nontender with palpation as well. The patient's back shows spine grossly in the midline with slight exaggeration of thoracic kyphosis and mild flattening of lumbar lordotic curvature, but only with moderate tenderness with palpation in the cervical paraspinous musculature, good rotational motion both laterally as well as extension and flexion. Thoracic paraspinous muscles are mildly tender and the lumbar paraspinous muscles are also mildly tender diffusely bilaterally without radiation. EXTREMITIES: The patient's upper extremities show deep tendon reflexes at 2+ in the biceps and triceps tendons. Motor exam is strong with hand ironer strength rated at 5/5 as is biceps and triceps flexion. Peripheral pulses are 2+. Lower extremities show well-healed surgical scar on the right knee. Patellar tendon reflex is deferred on the right by the patient's request and is 1+ on the left. Tendo-calcaneus tendons are 1+ bilaterally. Motor exam is strong with approximately 3-4 on a scale of 5 with right quadriceps and hamstring flexion 5/5 on the left. Options were discussed with the patient. The patient's old chart was reviewed as her current medication regimen updated. Current review of systems updated today as well and we will refill the patient's intrathecal pump today with 40 mL medications containing bupivacaine, fentanyl, clonidine as documented, 2 mL of old medication was withdrawn. Under sterile prep and drape, the patient's pump and PTM were then reprogrammed to rate and volume as documented. The patient will continue rehab with her right knee, also maintain activity stretches and strengthening exercises as previously and we will follow up prior to next refill day, which is 04/01. DIAGNOSES: Cervical radiculopathy with post-cervical laminectomy syndrome, bilateral knee joint pain, bilateral hip joint pain, lumbar degenerative disk disease. PROCEDURE: Intrathecal pump refill and reprogramming under sterile prep and drape using a topical local anesthetic with a 22-gauge noncutting [employer]ptive [employer] needle accessing the pump without difficulty with aspiration of 2 mL of old medication and replacing 40 mL of the new medication containing bupivacaine, fentanyl and clonidine as documented. Needle was withdrawn. Sterile bandage applied. The patient tolerated the procedure well, had no complications. CHITRA EPPERSON MD DR: TRAV/benito JOB#: [id number] / [id number]
== END | disposition home or self-care (01) ==
LOC: PNCL 14:39
PROVIDERS: ATTEND Anesthesiology
DX: M51.36 Other intervertebral disc degeneration, lumbar region (principal); M54.12 Radiculopathy, cervical region; M96.1 Postlaminectomy syndrome, not elsewhere classified; E78.00 Pure hypercholesterolemia, unspecified; J44.9 Chronic obstructive pulmonary disease, unspecified; E66.9 Obesity, unspecified; K21.9 Gastro-esophageal reflux disease without esophagitis; M19.91 Primary osteoarthritis, unspecified site; E03.9 Hypothyroidism, unspecified; F41.9 Anxiety disorder, unspecified; F32.9 Major depressive disorder, single episode, unspecified; Z98.890 Other specified postprocedural states; Z86.69 Personal history of other diseases of the nervous system and sense organs; Z87.440 Personal history of urinary (tract) infections; Z86.73 Personal history of transient ischemic attack (TIA), and cerebral infarction without residual deficits; Z90.49 Acquired absence of other specified parts of digestive tract; Z90.710 Acquired absence of both cervix and uterus; Z87.39 Personal history of other diseases of the musculoskeletal system and connective tissue; Z87.442 Personal history of urinary calculi; Z88.1 Allergy status to other antibiotic agents; Z86.39 Personal history of other endocrine, nutritional and metabolic disease; Z91.040 Latex allergy status; Z88.8 Allergy status to other drugs, medicaments and biological substances; Z91.048 Other nonmedicinal substance allergy status
CPT/HCPCS: 62370; 95991; J0735; J3010; J3490

== ENCOUNTER 2017-03-25 16:11 | Inpatient (IN) | payer MEDICARE ==
[~2017-03-25] VITALS: Ht 154.9 cm; Wt 89.4 kg
[~2017-03-25 16:11] MED LIST changes: -BUPIVACAINE MPF 0.75% 30 ML VIAL. ONE; -LIDOCAINE/PRILOCAINE TOPICAL CREAM 5GM TUBE. TP ONE; -cloNIDine PF 5,000 MCG/10 ML VIAL EP ONE; -fentaNYL PF VIAL 250 MCG/5 ML VIAL ONE
[2017-03-25 16:55] LABS: BASO # 0.1 x10^3/uL (0.0-0.2); BASO % 1 % (0-3); EOS % 3 % (0-3); HEMOGLOBIN 13.4 g/dL (12.0-15.5); LYMPH # 3.9 x10^3/uL (1.0-4.8); LYMPH % 46 % (24-48); MEAN CORPUSCULAR HEMOGLOBIN 27 pg (25-35); MEAN CORPUSCULAR HGB CONC 32 g/dL (31-37); MEAN CORPUSCULAR VOLUME 84 fL (79-100); MONO % 11 % (0-9); NEUT % 39 % (31-73); PLATELET COUNT 383 x10^3/uL (140-400); RED BLOOD COUNT 4.99 x10^6/uL (3.50-5.40); RED CELL DISTRIBUTION WIDTH 16.8 % (11.5-14.5); WHITE BLOOD COUNT 8.5 x10^3/uL (4.0-11.0)
[2017-03-25] MEDS: fentaNYL PF VIAL 100 MCG/2 ML VIAL IV PRN ×2 (16:55→18:03)
[2017-03-25] MEDS ORDERED: CONTRAST GIVEN MC PRN (17:00)
[2017-03-25 17:02] LABS: CALCIUM 9.7 mg/dL (8.5-10.1); CREATININE 0.8 mg/dL (0.6-1.0); GFR 70.7; POTASSIUM 3.7 mmol/L (3.5-5.1)
[2017-03-25 17:08] LABS: ALBUMIN 3.4 g/dL (3.4-5.0); ALBUMIN/GLOBULIN RATIO 0.8 (1.0-1.7); TOTAL BILIRUBIN 0.4 mg/dL (0.2-1.0); TOTAL PROTEIN 7.7 g/dL (6.4-8.2)
[2017-03-25] MEDS ORDERED: IOHEXOL 300 MG/ML 100ML VIAL. IV ONE (17:15)
--- NOTE | 2017-03-25 18:07 | RAD ---
CT ABD PELV W/ IV CONTRST ONLY dated 03/25/2017 5:34 PM Indication:abd pain; Omni 300, 75ml Comparison: 12/29/2010. Technique: Images were obtained through the abdomen and pelvis using IV contrast. No oral contrast was given. One or more of the following individualized dose reduction techniques were utilized for this examination: 1. Automated exposure control 2. Adjustment of the mA and/or kV according to patient size 3. Use of iterative reconstruction technique Findings: There is mild atelectasis in the left lower lobe. The lung bases otherwise are clear. The liver and spleen are homogeneous in density and normal in configuration. Both kidneys enhance with contrast. No mass or obstruction is seen. The adrenal glands are not enlarged. No pancreatic abnormality is seen. Prominent caliber of the extrahepatic biliary tree is unchanged and likely relates to previous cholecystectomy. No retroperitoneal or mesenteric adenopathy is seen. There is no apparent abdominal soft tissue mass. A hernia is now seen through the left anterior abdominal wall. This contains fat and a segment of what is thought to be small bowel. There is some narrowing of one of the loops leaving the hernia, and a component of obstruction may be present. There are fluid-filled dilated small bowel loops in the area. The more distal small bowel is decompressed. Transverse colon also bulges into this region, but does not appear to be entrapped. A second fat-containing hernia is seen just below this level near the midline. There is now an electronic device in the left anterior abdominal wall. This is apparently a stimulator device. Images through the pelvis show no abnormality of the distal ureters or bladder. No pelvic or inguinal adenopathy is seen. There is no separate pelvic mass or inflammatory process. IMPRESSION: There is now an anterior abdominal wall hernia containing small bowel, and there may be a component of obstruction related to this. Electronically signed by: Benjamin Arreola Jr., MD (03/25/2017 6:03 PM) [facility]
--- NOTE | 2017-03-25 18:24 | PHYS DOC ---
Past Medical History Past Medical History: Anxiety, Arthritis, Depression, Diverticulitis, GERD, Hypothyroid, Migraines, TIA, Other Additional Past Medical Histor: CHRONIC PAIN,GASTROPARESIS,pre DM,SBO,PAIN PUMP Past Surgical History: Cholecystectomy, , Knee Replacement, Tonsillectomy Additional Past Surgical Histo: HERNIA,BUNIONECTOMY BILAT FEET,FUNDOLICATION, SPINAL CORD STIMULATOR, Alcohol Use: Rarely Drug Use: None Adult General Chief Complaint Chief Complaint: ABDOMINAL PAIN HPI HPI Patient is a 71 year old female who presents ambulatory to the ED with the complaint of abdominal pain. "It hurts so bad". Patient had diarrhea several times yesterday. She's had no vomiting. The pain made her toss and turn last night that was with her when she got up this morning and has gotten worse all day. She didn't eat today because of the pain. She's never had pain just like this before. She has a history of gastroparesis. She also has an implanted pain pump. She recently a few weeks ago had a knee replacement. She was admitted here in November for possible small bowel obstruction but patient has been states that Dr. John ended up thinking that she just had a bad GI virus. She got all better after that. states that she has "diastases recti". She has had many abdominal surgeries. She has known abdominal wall herniation sped Dr. John is reluctant to use mesh if he doesn't have to. She has had cholecystectomy, fundoplication and repeat, hernia repairs. She does have the left-sided abdomen implanted pain pump. She has not had appendectomy. No history of pancreatitis. Patient denies vomiting. Denies fever or chills. Denies UTI symptoms. Surgeon Dr. John PCP Dr. Dima Shirley Review of Systems Review of Systems Constitutional: Denies fever or chills [] HENT: Denies nasal congestion or sore throat [] Respiratory: Denies cough or shortness of breath [] Cardiovascular: Denies chest pain GI: As in history of present illness : Denies dysuria or hematuria [] Musculoskeletal: Recent joint replacement, pain is improving, using a cane Integument: Denies rash or skin lesions [] Neurologic: Denies headache, focal weakness or sensory changes [] All other systems were reviewed and found to be within normal limits, except as documented in this note. Current Medications Current Medications Current Medications Medications (Trade) Dose Ordered Sig/Suki Start Time Stop Time Status Last Admin Dose Admin Fentanyl Citrate (Fentanyl 2ml Vial) 50 mcg PRN Q15MIN PRN 03/25/17 17:00 03/25/17 19:35 DC 03/25/17 18:03 50 MCG Info (Do NOT chart on this entry -- for MONITORING) 1 each PRN DAILY PRN 03/25/17 17:00 03/27/17 16:59 Iohexol (Omnipaque 300 Mg/ml) 75 ml 1X ONCE 03/25/17 17:15 03/25/17 17:16 DC 03/25/17 17:40 75 ML Allergies Allergies Allergies Coded Allergies Type Severity Reaction Last Updated Verified prochlorperazine edisylate Allergy Severe Anaphylaxis 12/05/16 Yes prochlorperazine maleate Allergy Severe Anaphylaxis 12/05/16 Yes adhesive Allergy Intermediate 12/05/16 Yes ciprofloxacin Allergy Intermediate hallucinations 12/05/16 Yes ciprofloxacin HCl Allergy Intermediate hallucinations 12/05/16 Yes clindamycin Allergy Intermediate extreme heartburn 12/05/16 Yes latex Allergy Intermediate 12/05/16 Yes oxycodone Allergy Intermediate 12/05/16 Yes Physical Exam Physical Exam Constitutional: Well developed, well nourished, no acute distress, non-toxic appearance. Alert, warm and dry, appears uncomfortable but not acute. HENT: Normocephalic, atraumatic, bilateral external ears normal, nose normal. [ ] Eyes: conjunctiva normal, no discharge. [] Neck: Normal range of motion, no stridor. [] Cardiovascular:Heart rate regular rhythm, no murmur [] Lungs & Thorax: Bilateral breath sounds clear to auscultation [] Abdomen: Obese. Somewhat distended. Tender to palpation across the upper abdomen. No rebound or guarding. Increased tympany across the upper abdomen. No significant tenderness below the umbilicus. Implanted pain pump is palpable, overlying skin appears normal. Skin: Warm, dry, no erythema, no rash. [] Back: No tenderness, no CVA tenderness. [] Extremities: No tenderness, no cyanosis, no clubbing, ROM intact, no edema. [] Neurologic: Alert and oriented X 3, normal motor function, normal sensory function, no focal deficits noted. [] Current Patient Data Vital Signs Vital Signs Date Time Temp Pulse Resp B/P (MAP) Pulse Ox O2 Delivery O2 Flow Rate FiO2 03/25/17 18:14 66 12 135/77 (96) 95 Room Air 03/25/17 16:16 98.4 98.4 Lab Values Laboratory Tests Test 03/25/17 16:30 White Blood Count 8.5 x10^3/uL (4.0-11.0) Red Blood Count 4.99 x10^6/uL (3.50-5.40) Hemoglobin 13.4 g/dL (12.0-15.5) Hematocrit 42.0 % (36.0-47.0) Mean Corpuscular Volume 84 fL (79-100) Mean Corpuscular Hemoglobin 27 pg (25-35) Mean Corpuscular Hemoglobin Concent 32 g/dL (31-37) Red Cell Distribution Width 16.8 % (11.5-14.5) H Platelet Count 383 x10^3/uL (140-400) Neutrophils (%) (Auto) 39 % (31-73) Lymphocytes (%) (Auto) 46 % (24-48) Monocytes (%) (Auto) 11 % (0-9) H Eosinophils (%) (Auto) 3 % (0-3) Basophils (%) (Auto) 1 % (0-3) Neutrophils # (Auto) 3.4 x10^3uL (1.8-7.7) Lymphocytes # (Auto) 3.9 x10^3/uL (1.0-4.8) Monocytes # (Auto) 0.9 x10^3/uL (0.0-1.1) Eosinophils # (Auto) 0.2 x10^3/uL (0.0-0.7) Basophils # (Auto) 0.1 x10^3/uL (0.0-0.2) Sodium Level 142 mmol/L (136-145) Potassium Level 3.7 mmol/L (3.5-5.1) Chloride Level 104 mmol/L (98-107) Carbon Dioxide Level 27 mmol/L (21-32) Anion Gap 11 (6-14) Blood Urea Nitrogen 10 mg/dL (7-20) Creatinine 0.8 mg/dL (0.6-1.0) Estimated GFR (Cockcroft-Gault) 70.7 BUN/Creatinine Ratio 13 (6-20) Glucose Level 117 mg/dL (70-99) H Calcium Level 9.7 mg/dL (8.5-10.1) Total Bilirubin 0.4 mg/dL (0.2-1.0) Aspartate Amino Transferase (AST) 34 U/L (15-37) Alanine Aminotransferase (ALT) 32 U/L (14-59) Alkaline Phosphatase 113 U/L (46-116) Total Protein 7.7 g/dL (6.4-8.2) Albumin 3.4 g/dL (3.4-5.0) Albumin/Globulin Ratio 0.8 (1.0-1.7) L Lipase 83 U/L (73-393) Laboratory Tests 03/25/17 16:30 Laboratory Tests 03/25/17 16:30 EKG EKG [] Radiology/Procedures Radiology/Procedures CT scan of the abdomen and pelvis with IV contrast was read by the radiologist. I discussed the findings with the radiologist. Compared to previous CT scans, they are now noting small bowel herniated through an abdominal wall hernia. It' s hard to say whether that intestine has good blood flow but the intestinal saldana look okay and the neck of the hernia is wide, radiologist does not believe it is likely that the intestine is strangulated or incarcerated. There is the appearance of small bowel obstruction proximally and flattened bowel distally.[] Course & Med Decision Making Course & Med Decision Making Pertinent Labs and Imaging studies reviewed. (See chart for details) 71-year-old female with known abdominal wall hernias presents with upper abdominal pain, no vomiting. Labs are unremarkable. CT scan is concerning for positive small bowel herniated through a left upper quadrant abdominal wall hernia, per my discussion with the radiologist. She was given 1 dose of IV fentanyl without much relief, given the second dose, and I rechecked the patient and she stated she felt "better". Repeat exam of the patient. The upper abdominal area of the hernia feels flat and nontender at this time. I'm not able to palpate intestine in the hernia at this time. It may have reduced on its own. I'm encouraged the patient's pain improved after 2 doses of IV fentanyl and reexam suggests that possibly the small bowel may have reduced itself. I would like to admit the patient for nothing by mouth status, reevaluation by her surgeon Dr. John. Patient is agreeable to that plan. Discussed the case with Dr. Rodriguez, [facility]. She will admit the patient. I wrote bridge orders. I discussed the case with Dr. John who will see the patient in the hospital. I don't believe she has a surgical abdomen or requires any intervention tonight. [] Dragon Disclaimer Dragon Disclaimer This electronic medical record was generated, in whole or in part, using a voice recognition dictation system. Departure Departure Impression: Primary Impression: Small bowel obstruction Disposition: ADMITTED INPATIENT Admitting Physician: Patricia Rodriguez Condition: STABLE Referrals: DIMA SHIRLEY MD (PCP) ROSEANNE COYLE MD Mar 25, 2017 18:24
[2017-03-25] MEDS ORDERED: fentaNYL PF VIAL 100 MCG/2 ML VIAL IV PRN (18:30)
[2017-03-25] MEDS ORDERED: ONDANSETRON PF 4 MG/2 ML VIAL. IV PRN (18:30)
[2017-03-25] MEDS ORDERED: BISACODYL 10 MG SUPP.RECT. RC PRN (19:45)
[2017-03-25] MEDS ORDERED: diphenhydrAMINE 50 MG/ML VIAL IVP PRN (19:45)
[2017-03-25 19:59] VITALS: BP 144/80
--- NOTE | 2017-03-25 20:34 | PDOC1 ---
History and Physical Date of Admission Date of Admission DATE: 03/25/17 TIME: 20:28 Identification/Chief Complaint Chief Complaint severe abd pain today Problems: Source Source: Caregiver, Chart review, Patient History of Present Illness History of Present Illness Very pleasant 71 y.o female who lives at home and is accompanied by her started to have diarrhea 1 day SCLEROSCOPE TESTER, no fevers, watery then today 10/ 10 abd pain woke her up from sleep, anterior abdominal area COULD not take in anything today but her cough drops so went to ER, SHe has had multiple abd sxs in past and known to [facility]. CT shows the abd verntal hernia with fat and loops of bowel in it with possible obstrxn, Hence pt admitted with GS on board, NPO and iVF and pain meds Past Medical History Cardiovascular: HTN, Hyperlipidemia Past Surgical History Past Surgical History: Total hip replacement, Total knee replacement, Other ( Bambi fundoplication) Family History Family History: No Significant Social History Smoke: No ALCOHOL: none Drugs: None Current Medications Current Medications Current Medications Fentanyl Citrate (Fentanyl 2ml Vial) 50 mcg PRN Q15MIN PRN IV PAIN GREATER THAN 3/10 Last administered on 03/25/17 18:03; Start 03/25/17 at 17:00; Stop 03/25/17 at 19:35; Status DC Iohexol (Omnipaque 300 Mg/ml) 75 ml 1X ONCE IV Last administered on t 17:40; Start 03/25/17 at 17:15; Stop 03/25/17 at 17:16; Status DC Info (Do NOT chart on this entry -- for MONITORING) 1 each PRN DAILY PRN MC SEE COMMENTS; Start 03/25/17 at 17:00; Stop 03/27/17 at 16:59 Ondansetron HCl (Zofran) 4 mg PRN Q8HRS PRN IV NAUSEA/VOMITING; Start at 18:30; Stop 03/25/17 at 19:35; Status DC Fentanyl Citrate (Fentanyl 2ml Vial) 50 mcg PRN Q2HR PRN IV PAIN; Start at 18:30; Stop 03/26/17 at 18:29 Sodium Chloride 1,000 ml @ 75 mls/hr [id number] IV ; Start 03/25/17 at 19:00; Stop 03/26/17 at 18:59 Ondansetron HCl (Zofran) 4 mg PRN Q6HRS PRN IV NAUSEA/VOMITING; Start at 19:45 Famotidine (Pepcid Vial) 20 mg QHS IVP ; Start 03/25/17 at 21:00 Bisacodyl (Dulcolax Supp) 10 mg PRN DAILY PRN RC CONSTIPATION; Start 03/25/17 at 19:45 Levothyroxine Sodium 25 mcg/ Sodium Chloride 5 ml @ 100 mls/hr DAILY IVP ; Start 03/26/17 at 09:00 Diphenhydramine HCl (Benadryl) 25 mg PRN QHS PRN IVP INSOMNIA; Start 03/25/17 at 19:45 Active Scripts Active Hydrocodone-Apap 5-325 (Hydrocodone Bit/Acetaminophen) 1 Each Tablet 1 Tab PO PRN Q6HRS PRN Reported Dulcolax (Bisacodyl) 10 Mg Supp.rect 10 Mg RC PRN DAILY PRN Fleet Enema (Na Phos,M-B/Na Phos,Di-Ba) 133 Ml Enema 1 Each RC DAILY PRN Tramadol Hcl 50 Mg Tablet 2 Tab PO PRN Q3HRS PRN Tramadol Hcl 50 Mg Tablet 1 Tab PO PRN Q6HRS Mucinex (Guaifenesin) 600 Mg Tablet.er 1 Tab PO BID PRN Coumadin (Warfarin Sodium) 5 Mg Tablet 1 Tab PO DAILY Protonix (Pantoprazole Sodium) 40 Mg Tablet.dr 1 Tab PO DAILY Levothyroxine Sodium 50 Mcg Tablet 1 Tab PO DAILY Senna Plus Tablet (Sennosides/Docusate Sodium) 1 Each Tablet 1 Tab PO DAILY Vitamin D (Cholecalciferol (Vitamin D3)) 2,000 Unit Capsule 2,000 Unit PO TID Cyclobenzaprine Hcl 10 Mg Tablet 10 Mg PO TID Lortab 5-325 mg Tablet (Hydrocodone/Acetaminophen) 1 Each Tablet 1 Tab PO PRN Q6HRS PRN Fioricet 50-300-40 Mg Capsule (Butalb/Acetaminophen/Caffeine) 1 Each Capsule 1 Each PO PRN Q4HRS PRN Gabapentin 100 Mg Capsule 300 Mg PO TID [gi cocktail] 500 Mg PO PRN PRN [Clonidine/Pump] [Fentanyl/Pump] Aspirin 325 Mg Tablet 1 Tab PO DAILY Bupivacaine 0.25% On-Q Pump (Bupivacaine Hcl/Pf) 100 Ml Els.inspector aligning.fr 100 Ml IJ PER PAIN PUMP Alprazolam 0.5 Mg Tab.rapdis 0.5 Mg PO PRN Zofran Odt (Ondansetron) 8 Mg Tab.rapdis 8 Mg PO PRN Ambien (Zolpidem Tartrate) 5 Mg Tablet 5 Mg PO HS Risperdal (Risperidone) 0.5 Mg Tablet 0.5 Mg PO HS [domperadone] 10mg Tablet 20 Mg PO TIDAC Omeprazole 40 Mg Capsule.dr 40 Mg PO BID Zocor (Simvastatin) 20 Mg Tablet 20 Mg PO HS Wellbutrin (Bupropion Hcl) 100 Mg Tablet 150 Mg PO DAILY Levothyroxine Sodium 25 Mcg Tablet 50 Mcg PO DAILY Allergies Allergies: Coded Allergies: prochlorperazine edisylate (Verified Allergy, Severe, Anaphylaxis, 12/05/16) prochlorperazine maleate (Verified Allergy, Severe, Anaphylaxis, 12/05/16) adhesive (Verified Allergy, Intermediate, 12/05/16) ciprofloxacin (Verified Allergy, Intermediate, hallucinations, 12/05/16) ciprofloxacin HCl (Verified Allergy, Intermediate, hallucinations, 12/05/16) clindamycin (Verified Allergy, Intermediate, extreme heartburn, 12/05/16) latex (Verified Allergy, Intermediate, 12/05/16) oxycodone (Verified Allergy, Intermediate, 12/05/16) 'HALLUCINATIONS' ROS Review of System as per HPI, cough too, diarrhea, abd pain, all else is neg, NO emesis Physical Exam General: Alert, Oriented X3, Cooperative, No acute distress HEENT: Atraumatic, PERRLA, EOMI Lungs: Clear to auscultation, Normal air movement Heart: S1S2, RRR, no thrills, no rubs, no gallops Cardiovascular: S1, S2 Breasts: Normal, Rt breast nml w/o mass, Lt breast nml w/o mass, Nipples normal Abdomen: Soft, Other (protruding abd wall hernia, midline scar, no guarding actually minimally tender to my exam tonight) Rectal Exam: not examined PELVIC: Nml ext genitalia Extremities: No clubbing, No cyanosis, No edema, Normal pulses, No tenderness/ swelling Skin: No rashes, No breakdown, No significant lesion Neuro: Normal gait, Normal speech, Strength at 5/5 X4 ext, Normal tone, Sensation intact, Cranial nerves 3-12 NL, Reflexes 2+ Psych/Mental Status: Mental status NL, Mood NL Vitals Vitals Vital Signs Date Time Temp Pulse Resp B/P (MAP) Pulse Ox O2 Delivery O2 Flow Rate FiO2 03/25/17 19:22 66 17 149/82 (104) 99 Room Air 03/25/17 16:16 98.4 98.4 Labs Labs Laboratory Tests Test 03/25/17 16:30 White Blood Count 8.5 x10^3/uL (4.0-11.0) Red Blood Count 4.99 x10^6/uL (3.50-5.40) Hemoglobin 13.4 g/dL (12.0-15.5) Hematocrit 42.0 % (36.0-47.0) Mean Corpuscular Volume 84 fL (79-100) Mean Corpuscular Hemoglobin 27 pg (25-35) Mean Corpuscular Hemoglobin Concent 32 g/dL (31-37) Red Cell Distribution Width 16.8 % (11.5-14.5) Platelet Count 383 x10^3/uL (140-400) Neutrophils (%) (Auto) 39 % (31-73) Lymphocytes (%) (Auto) 46 % (24-48) Monocytes (%) (Auto) 11 % (0-9) Eosinophils (%) (Auto) 3 % (0-3) Basophils (%) (Auto) 1 % (0-3) Neutrophils # (Auto) 3.4 x10^3uL (1.8-7.7) Lymphocytes # (Auto) 3.9 x10^3/uL (1.0-4.8) Monocytes # (Auto) 0.9 x10^3/uL (0.0-1.1) Eosinophils # (Auto) 0.2 x10^3/uL (0.0-0.7) Basophils # (Auto) 0.1 x10^3/uL (0.0-0.2) Sodium Level 142 mmol/L (136-145) Potassium Level 3.7 mmol/L (3.5-5.1) Chloride Level 104 mmol/L (98-107) Carbon Dioxide Level 27 mmol/L (21-32) Anion Gap 11 (6-14) Blood Urea Nitrogen 10 mg/dL (7-20) Creatinine 0.8 mg/dL (0.6-1.0) Estimated GFR (Cockcroft-Gault) 70.7 BUN/Creatinine Ratio 13 (6-20) Glucose Level 117 mg/dL (70-99) Calcium Level 9.7 mg/dL (8.5-10.1) Total Bilirubin 0.4 mg/dL (0.2-1.0) Aspartate Amino Transf (AST/SGOT) 34 U/L (15-37) Alanine Aminotransferase (ALT/SGPT) 32 U/L (14-59) Alkaline Phosphatase 113 U/L (46-116) Total Protein 7.7 g/dL (6.4-8.2) Albumin 3.4 g/dL (3.4-5.0) Albumin/Globulin Ratio 0.8 (1.0-1.7) Lipase 83 U/L (73-393) Laboratory Tests Test 03/25/17 16:30 White Blood Count 8.5 x10^3/uL (4.0-11.0) Red Blood Count 4.99 x10^6/uL (3.50-5.40) Hemoglobin 13.4 g/dL (12.0-15.5) Hematocrit 42.0 % (36.0-47.0) Mean Corpuscular Volume 84 fL (79-100) Mean Corpuscular Hemoglobin 27 pg (25-35) Mean Corpuscular Hemoglobin Concent 32 g/dL (31-37) Red Cell Distribution Width 16.8 % (11.5-14.5) Platelet Count 383 x10^3/uL (140-400) Neutrophils (%) (Auto) 39 % (31-73) Lymphocytes (%) (Auto) 46 % (24-48) Monocytes (%) (Auto) 11 % (0-9) Eosinophils (%) (Auto) 3 % (0-3) Basophils (%) (Auto) 1 % (0-3) Neutrophils # (Auto) 3.4 x10^3uL (1.8-7.7) Lymphocytes # (Auto) 3.9 x10^3/uL (1.0-4.8) Monocytes # (Auto) 0.9 x10^3/uL (0.0-1.1) Eosinophils # (Auto) 0.2 x10^3/uL (0.0-0.7) Basophils # (Auto) 0.1 x10^3/uL (0.0-0.2) Sodium Level 142 mmol/L (136-145) Potassium Level 3.7 mmol/L (3.5-5.1) Chloride Level 104 mmol/L (98-107) Carbon Dioxide Level 27 mmol/L (21-32) Anion Gap 11 (6-14) Blood Urea Nitrogen 10 mg/dL (7-20) Creatinine 0.8 mg/dL (0.6-1.0) Estimated GFR (Cockcroft-Gault) 70.7 BUN/Creatinine Ratio 13 (6-20) Glucose Level 117 mg/dL (70-99) Calcium Level 9.7 mg/dL (8.5-10.1) Total Bilirubin 0.4 mg/dL (0.2-1.0) Aspartate Amino Transf (AST/SGOT) 34 U/L (15-37) Alanine Aminotransferase (ALT/SGPT) 32 U/L (14-59) Alkaline Phosphatase 113 U/L (46-116) Total Protein 7.7 g/dL (6.4-8.2) Albumin 3.4 g/dL (3.4-5.0) Albumin/Globulin Ratio 0.8 (1.0-1.7) Lipase 83 U/L (73-393) VTE Prophylaxis Ordered VTE Prophylaxis Devices: Yes VTE Pharmacological Prophylaxi: Yes Assessment/Plan Assessment/Plan 1. Abd ventral hernia with fat and bowel in it with possible obstrxn 2. Hx multiple abd sxs in past Bambi fundoplication etc 3. Diastasis recti 4. HTN , Dyslipidemia, HYpothyroidism -chronic stable 5,. COugh 6. Obesity bMI 37.8 PLan: Admit 2MN NPO,strict including meds IVF GS consult Synthroid IV PPI IV since NPO COugh drops ok Prn IV pushes in case BP shoots up PT/OT Dw and RN at bedside SANGEETA BARKLEY MD Mar 25, 2017 20:34
[2017-03-25] MEDS: IV NORMAL SALINE 1000ML BAG 1,000 ML IV SCH (21:29)
[2017-03-25] MEDS: BENZOCAINE/MENTHOL LOZENGE. PO PRN (21:32)
[2017-03-25] MEDS: FAMOTIDINE 20 MG/2 ML VIAL IVP SCH (21:32)
[2017-03-25 23:11] VITALS: BP 155/86
[2017-03-26 03:08] VITALS: BP 137/83
[2017-03-26 07:00] VITALS: BP 131/93
[2017-03-26] MEDS: IV NORMAL SALINE 1000ML BAG 1,000 ML IV SCH ×2 (08:48→20:17)
[2017-03-26] MEDS: LEVOTHYROXINE SODIUM 25 MCG in IV NORMAL SALINE 50ML 5 ML IVP SCH (08:48)
--- NOTE | 2017-03-26 10:38 | PDOC2 ---
CONSULT Date of Consult Date of Consult DATE: 03/26/17 TIME: 10:25 Reason for Consult Reason for Consult: VIH with partial SBO Referring Physician Referring Physician: GUMARO Identification/Chief Complaint Chief Complaint abdominal pain, diarrhea Problems: Source Source: Chart review, Patient History of Present Illness Reason for Visit: 71 yo obese female known to our service from previous procedures. Presents with abdominal pain and diarrhea. No nausea or vomiting. Known VIH. Past Medical History Cardiovascular: HTN, Hyperlipidemia CENTRAL NERVOUS SYSTEM: Migraine GI: Diverticulosis, GERD, Other (gastroparesis) Psych: Anxiety, Depression Endocrine: Hypothyroidism Past Surgical History Past Surgical History: Cholecystectomy, Total hip replacement, Total knee replacement, Other (Bambi fundoplication) Family History Family History: No Significant Social History No ALCOHOL: none Drugs: None Current Medications Current Medications Current Medications Fentanyl Citrate (Fentanyl 2ml Vial) 50 mcg PRN Q15MIN PRN IV PAIN GREATER THAN 3/10 Last administered on 03/25/17 18:03; Start 03/25/17 at 17:00; Stop 03/25/17 at 19:35; Status DC Iohexol (Omnipaque 300 Mg/ml) 75 ml 1X ONCE IV Last administered on 17:40; Start 03/25/17 at 17:15; Stop 03/25/17 at 17:16; Status DC Info (Do NOT chart on this entry -- for MONITORING) 1 each PRN DAILY PRN MC SEE COMMENTS; Start 03/25/17 at 17:00; Stop 03/27/17 at 16:59 Ondansetron HCl (Zofran) 4 mg PRN Q8HRS PRN IV NAUSEA/VOMITING; Start at 18:30; Stop 03/25/17 at 19:35; Status DC Fentanyl Citrate (Fentanyl 2ml Vial) 50 mcg PRN Q2HR PRN IV PAIN; Start at 18:30; Stop 03/26/17 at 18:29 Sodium Chloride 1,000 ml @ 75 mls/hr [id number] IV Last administered on 08:48; Start 03/25/17 at 19:00; Stop 03/26/17 at 18:59 Ondansetron HCl (Zofran) 4 mg PRN Q6HRS PRN IV NAUSEA/VOMITING; Start at 19:45 Famotidine (Pepcid Vial) 20 mg QHS IVP Last administered on 03/25/17 21:32; Start 03/25/17 at 21:00 Bisacodyl (Dulcolax Supp) 10 mg PRN DAILY PRN RC CONSTIPATION; Start 03/25/17 at 19:45 Levothyroxine Sodium 25 mcg/ Sodium Chloride 5 ml @ 100 mls/hr DAILY IVP Last administered on 03/26/17 08:48; Start 03/26/17 at 09:00 Diphenhydramine HCl (Benadryl) 25 mg PRN QHS PRN IVP INSOMNIA; Start 03/25/17 at 19:45 Throat Lozenges (Cepacol Sore Throat Lozenge) 1 katelynn PRN Q2HRS PRN PO SORE THROAT Last administered on 03/25/17 21:32; Start 03/25/17 at 20:30 Active Scripts Active Hydrocodone-Apap 5-325 (Hydrocodone Bit/Acetaminophen) 1 Each Tablet 1 Tab PO PRN Q6HRS PRN Reported Dulcolax (Bisacodyl) 10 Mg Supp.rect 10 Mg RC PRN DAILY PRN Fleet Enema (Na Phos,M-B/Na Phos,Di-Ba) 133 Ml Enema 1 Each RC DAILY PRN Tramadol Hcl 50 Mg Tablet 1 Tab PO PRN Q6HRS Mucinex (Guaifenesin) 600 Mg Tablet.er 1 Tab PO BID PRN Protonix (Pantoprazole Sodium) 40 Mg Tablet.dr 1 Tab PO DAILY Levothyroxine Sodium 50 Mcg Tablet 1 Tab PO DAILY Vitamin D (Cholecalciferol (Vitamin D3)) 2,000 Unit Capsule 2,000 Unit PO TID Cyclobenzaprine Hcl 10 Mg Tablet 10 Mg PO TID Lortab 5-325 mg Tablet (Hydrocodone/Acetaminophen) 1 Each Tablet 1 Tab PO PRN Q6HRS PRN Fioricet 50-300-40 Mg Capsule (Butalb/Acetaminophen/Caffeine) 1 Each Capsule 1 Each PO PRN Q4HRS PRN Gabapentin 100 Mg Capsule 300 Mg PO TID [gi cocktail] 500 Mg PO PRN PRN [Clonidine/Pump] [Fentanyl/Pump] Aspirin 325 Mg Tablet 1 Tab PO DAILY Bupivacaine 0.25% On-Q Pump (Bupivacaine Hcl/Pf) 100 Ml Els.pathology laboratory director.fr 100 Ml IJ PER PAIN PUMP Alprazolam 0.5 Mg Tab.rapdis 0.5 Mg PO PRN Zofran Odt (Ondansetron) 8 Mg Tab.rapdis 8 Mg PO PRN Ambien (Zolpidem Tartrate) 5 Mg Tablet 5 Mg PO HS Risperdal (Risperidone) 0.5 Mg Tablet 0.5 Mg PO HS [domperadone] 10mg Tablet 20 Mg PO TIDAC Zocor (Simvastatin) 20 Mg Tablet 20 Mg PO HS Wellbutrin (Bupropion Hcl) 100 Mg Tablet 150 Mg PO DAILY Allergies Allergies: Coded Allergies: prochlorperazine edisylate (Verified Allergy, Severe, Anaphylaxis, 12/05/16) prochlorperazine maleate (Verified Allergy, Severe, Anaphylaxis, 12/05/16) adhesive (Verified Allergy, Intermediate, 12/05/16) ciprofloxacin (Verified Allergy, Intermediate, hallucinations, 12/05/16) ciprofloxacin HCl (Verified Allergy, Intermediate, hallucinations, 12/05/16) clindamycin (Verified Allergy, Intermediate, extreme heartburn, 12/05/16) latex (Verified Allergy, Intermediate, 12/05/16) oxycodone (Verified Allergy, Intermediate, 12/05/16) 'HALLUCINATIONS' ROS Gastrointestinal: Yes Abdominal Pain, Yes Diarrhea Physical Exam General: Alert, Oriented X3, Cooperative, No acute distress HEENT: Atraumatic, EOMI Lungs: Normal air movement Heart: Regular rate Abdomen: Soft, Other (well healed right subcostal incision, well healed mildine incision, at the upper end of midline scar is an area suggesting fascial defect, no palpable contents, no TTP) Extremities: Other (recent TKR scar) Skin: No rashes Neuro: Normal speech Psych/Mental Status: Mental status NL Vitals VITALS Vital Signs Date Time Temp Pulse Resp B/P (MAP) Pulse Ox O2 Delivery O2 Flow Rate FiO2 03/26/17 07:00 97.9 69 18 131/93 (106) 92 Room Air 97.9 03/25/17 19:45 2.0 Labs Labs Laboratory Tests Test 03/25/17 16:30 White Blood Count 8.5 x10^3/uL (4.0-11.0) Red Blood Count 4.99 x10^6/uL (3.50-5.40) Hemoglobin 13.4 g/dL (12.0-15.5) Hematocrit 42.0 % (36.0-47.0) Mean Corpuscular Volume 84 fL (79-100) Mean Corpuscular Hemoglobin 27 pg (25-35) Mean Corpuscular Hemoglobin Concent 32 g/dL (31-37) Red Cell Distribution Width 16.8 % (11.5-14.5) Platelet Count 383 x10^3/uL (140-400) Neutrophils (%) (Auto) 39 % (31-73) Lymphocytes (%) (Auto) 46 % (24-48) Monocytes (%) (Auto) 11 % (0-9) Eosinophils (%) (Auto) 3 % (0-3) Basophils (%) (Auto) 1 % (0-3) Neutrophils # (Auto) 3.4 x10^3uL (1.8-7.7) Lymphocytes # (Auto) 3.9 x10^3/uL (1.0-4.8) Monocytes # (Auto) 0.9 x10^3/uL (0.0-1.1) Eosinophils # (Auto) 0.2 x10^3/uL (0.0-0.7) Basophils # (Auto) 0.1 x10^3/uL (0.0-0.2) Sodium Level 142 mmol/L (136-145) Potassium Level 3.7 mmol/L (3.5-5.1) Chloride Level 104 mmol/L (98-107) Carbon Dioxide Level 27 mmol/L (21-32) Anion Gap 11 (6-14) Blood Urea Nitrogen 10 mg/dL (7-20) Creatinine 0.8 mg/dL (0.6-1.0) Estimated GFR (Cockcroft-Gault) 70.7 BUN/Creatinine Ratio 13 (6-20) Glucose Level 117 mg/dL (70-99) Calcium Level 9.7 mg/dL (8.5-10.1) Total Bilirubin 0.4 mg/dL (0.2-1.0) Aspartate Amino Transf (AST/SGOT) 34 U/L (15-37) Alanine Aminotransferase (ALT/SGPT) 32 U/L (14-59) Alkaline Phosphatase 113 U/L (46-116) Total Protein 7.7 g/dL (6.4-8.2) Albumin 3.4 g/dL (3.4-5.0) Albumin/Globulin Ratio 0.8 (1.0-1.7) Lipase 83 U/L (73-393) Laboratory Tests Test 03/25/17 16:30 White Blood Count 8.5 x10^3/uL (4.0-11.0) Red Blood Count 4.99 x10^6/uL (3.50-5.40) Hemoglobin 13.4 g/dL (12.0-15.5) Hematocrit 42.0 % (36.0-47.0) Mean Corpuscular Volume 84 fL (79-100) Mean Corpuscular Hemoglobin 27 pg (25-35) Mean Corpuscular Hemoglobin Concent 32 g/dL (31-37) Red Cell Distribution Width 16.8 % (11.5-14.5) Platelet Count 383 x10^3/uL (140-400) Neutrophils (%) (Auto) 39 % (31-73) Lymphocytes (%) (Auto) 46 % (24-48) Monocytes (%) (Auto) 11 % (0-9) Eosinophils (%) (Auto) 3 % (0-3) Basophils (%) (Auto) 1 % (0-3) Neutrophils # (Auto) 3.4 x10^3uL (1.8-7.7) Lymphocytes # (Auto) 3.9 x10^3/uL (1.0-4.8) Monocytes # (Auto) 0.9 x10^3/uL (0.0-1.1) Eosinophils # (Auto) 0.2 x10^3/uL (0.0-0.7) Basophils # (Auto) 0.1 x10^3/uL (0.0-0.2) Sodium Level 142 mmol/L (136-145) Potassium Level 3.7 mmol/L (3.5-5.1) Chloride Level 104 mmol/L (98-107) Carbon Dioxide Level 27 mmol/L (21-32) Anion Gap 11 (6-14) Blood Urea Nitrogen 10 mg/dL (7-20) Creatinine 0.8 mg/dL (0.6-1.0) Estimated GFR (Cockcroft-Gault) 70.7 BUN/Creatinine Ratio 13 (6-20) Glucose Level 117 mg/dL (70-99) Calcium Level 9.7 mg/dL (8.5-10.1) Total Bilirubin 0.4 mg/dL (0.2-1.0) Aspartate Amino Transf (AST/SGOT) 34 U/L (15-37) Alanine Aminotransferase (ALT/SGPT) 32 U/L (14-59) Alkaline Phosphatase 113 U/L (46-116) Total Protein 7.7 g/dL (6.4-8.2) Albumin 3.4 g/dL (3.4-5.0) Albumin/Globulin Ratio 0.8 (1.0-1.7) Lipase 83 U/L (73-393) Images Images CT scan done on admission is reviewed. Assessment/Plan Assessment/Plan abdominal pain, diarrhea known VIH partial SBO by CT 2/2 hernia obesity no emergent surgical need will offer water, ice chips will discuss elective repair will follow Thanks for consult TRESSA DAWN MD Mar 26, 2017 10:38
[2017-03-26 11:42] VITALS: BP 143/86
--- NOTE | 2017-03-26 12:14 | PDOC ---
PROGRESS NOTES Chief Complaint Chief Complaint 1. Abd ventral hernia with fat and bowel in it with possible obstrxn 2. Hx multiple abd sxs in past Bambi fundoplication etc 3. Diastasis recti 4. HTN , Dyslipidemia, HYpothyroidism -chronic stable 5,. COugh 6. Obesity bMI 37.8 History of Present Illness History of Present Illness Looks good Minimal pain Possibe plans of sx either tmr or monday after GS discusses with Dr. John who is her surgeon She has had multiple abd surgeries in the past by Dr. John She is leaning towards wanting to have sx to "fix the problem" Allowed to drink water with ice chips today by GS On CT she had abd fat and loop bowel with poss obstruction SHe came in with a 10/10 abd pain that woke he r up from sleep and loose stools that has since resolved PLAN: ALlowed to drink water and ice NPO post MN in case OR monday Cont IVF pain meds ALl po meds on hold IV synthroid Dw her and RN at bedside Vitals Vitals Vital Signs Date Time Temp Pulse Resp B/P (MAP) Pulse Ox O2 Delivery O2 Flow Rate FiO2 03/26/17 11:42 98.0 70 18 143/86 (105) 93 Room Air 98.0 03/25/17 19:45 2.0 Physical Exam General: Alert, Oriented X3, Cooperative, No acute distress Heart: Regular rate Lungs: Clear, Other Abdomen: Soft, Other (well healed right subcostal incision, well healed mildine incision, at the upper end of midline scar is an area suggesting fascial defect, no palpable contents, no TTP) Extremities: Other (recent TKR scar) Skin: No rashes Labs LABS Laboratory Tests Test 03/25/17 16:30 White Blood Count 8.5 x10^3/uL (4.0-11.0) Red Blood Count 4.99 x10^6/uL (3.50-5.40) Hemoglobin 13.4 g/dL (12.0-15.5) Hematocrit 42.0 % (36.0-47.0) Mean Corpuscular Volume 84 fL (79-100) Mean Corpuscular Hemoglobin 27 pg (25-35) Mean Corpuscular Hemoglobin Concent 32 g/dL (31-37) Red Cell Distribution Width 16.8 % (11.5-14.5) Platelet Count 383 x10^3/uL (140-400) Neutrophils (%) (Auto) 39 % (31-73) Lymphocytes (%) (Auto) 46 % (24-48) Monocytes (%) (Auto) 11 % (0-9) Eosinophils (%) (Auto) 3 % (0-3) Basophils (%) (Auto) 1 % (0-3) Neutrophils # (Auto) 3.4 x10^3uL (1.8-7.7) Lymphocytes # (Auto) 3.9 x10^3/uL (1.0-4.8) Monocytes # (Auto) 0.9 x10^3/uL (0.0-1.1) Eosinophils # (Auto) 0.2 x10^3/uL (0.0-0.7) Basophils # (Auto) 0.1 x10^3/uL (0.0-0.2) Sodium Level 142 mmol/L (136-145) Potassium Level 3.7 mmol/L (3.5-5.1) Chloride Level 104 mmol/L (98-107) Carbon Dioxide Level 27 mmol/L (21-32) Anion Gap 11 (6-14) Blood Urea Nitrogen 10 mg/dL (7-20) Creatinine 0.8 mg/dL (0.6-1.0) Estimated GFR (Cockcroft-Gault) 70.7 BUN/Creatinine Ratio 13 (6-20) Glucose Level 117 mg/dL (70-99) Calcium Level 9.7 mg/dL (8.5-10.1) Total Bilirubin 0.4 mg/dL (0.2-1.0) Aspartate Amino Transf (AST/SGOT) 34 U/L (15-37) Alanine Aminotransferase (ALT/SGPT) 32 U/L (14-59) Alkaline Phosphatase 113 U/L (46-116) Total Protein 7.7 g/dL (6.4-8.2) Albumin 3.4 g/dL (3.4-5.0) Albumin/Globulin Ratio 0.8 (1.0-1.7) Lipase 83 U/L (73-393) Review of Systems Review of Systems minimal abd pain, thirsty, no emesis, no cp, soa Comment Review of Relevant I have reviewed the following items néstor (where applicable) has been applied. Labs Laboratory Tests Test 11/25/17 16:30 White Blood Count 8.5 x10^3/uL (4.0-11.0) Red Blood Count 4.99 x10^6/uL (3.50-5.40) Hemoglobin 13.4 g/dL (12.0-15.5) Hematocrit 42.0 % (36.0-47.0) Mean Corpuscular Volume 84 fL (79-100) Mean Corpuscular Hemoglobin 27 pg (25-35) Mean Corpuscular Hemoglobin Concent 32 g/dL (31-37) Red Cell Distribution Width 16.8 % (11.5-14.5) Platelet Count 383 x10^3/uL (140-400) Neutrophils (%) (Auto) 39 % (31-73) Lymphocytes (%) (Auto) 46 % (24-48) Monocytes (%) (Auto) 11 % (0-9) Eosinophils (%) (Auto) 3 % (0-3) Basophils (%) (Auto) 1 % (0-3) Neutrophils # (Auto) 3.4 x10^3uL (1.8-7.7) Lymphocytes # (Auto) 3.9 x10^3/uL (1.0-4.8) Monocytes # (Auto) 0.9 x10^3/uL (0.0-1.1) Eosinophils # (Auto) 0.2 x10^3/uL (0.0-0.7) Basophils # (Auto) 0.1 x10^3/uL (0.0-0.2) Sodium Level 142 mmol/L (136-145) Potassium Level 3.7 mmol/L (3.5-5.1) Chloride Level 104 mmol/L (98-107) Carbon Dioxide Level 27 mmol/L (21-32) Anion Gap 11 (6-14) Blood Urea Nitrogen 10 mg/dL (7-20) Creatinine 0.8 mg/dL (0.6-1.0) Estimated GFR (Cockcroft-Gault) 70.7 BUN/Creatinine Ratio 13 (6-20) Glucose Level 117 mg/dL (70-99) Calcium Level 9.7 mg/dL (8.5-10.1) Total Bilirubin 0.4 mg/dL (0.2-1.0) Aspartate Amino Transf (AST/SGOT) 34 U/L (15-37) Alanine Aminotransferase (ALT/SGPT) 32 U/L (14-59) Alkaline Phosphatase 113 U/L (46-116) Total Protein 7.7 g/dL (6.4-8.2) Albumin 3.4 g/dL (3.4-5.0) Albumin/Globulin Ratio 0.8 (1.0-1.7) Lipase 83 U/L (73-393) Laboratory Tests Test 03/25/17 16:30 White Blood Count 8.5 x10^3/uL (4.0-11.0) Red Blood Count 4.99 x10^6/uL (3.50-5.40) Hemoglobin 13.4 g/dL (12.0-15.5) Hematocrit 42.0 % (36.0-47.0) Mean Corpuscular Volume 84 fL (79-100) Mean Corpuscular Hemoglobin 27 pg (25-35) Mean Corpuscular Hemoglobin Concent 32 g/dL (31-37) Red Cell Distribution Width 16.8 % (11.5-14.5) Platelet Count 383 x10^3/uL (140-400) Neutrophils (%) (Auto) 39 % (31-73) Lymphocytes (%) (Auto) 46 % (24-48) Monocytes (%) (Auto) 11 % (0-9) Eosinophils (%) (Auto) 3 % (0-3) Basophils (%) (Auto) 1 % (0-3) Neutrophils # (Auto) 3.4 x10^3uL (1.8-7.7) Lymphocytes # (Auto) 3.9 x10^3/uL (1.0-4.8) Monocytes # (Auto) 0.9 x10^3/uL (0.0-1.1) Eosinophils # (Auto) 0.2 x10^3/uL (0.0-0.7) Basophils # (Auto) 0.1 x10^3/uL (0.0-0.2) Sodium Level 142 mmol/L (136-145) Potassium Level 3.7 mmol/L (3.5-5.1) Chloride Level 104 mmol/L (98-107) Carbon Dioxide Level 27 mmol/L (21-32) Anion Gap 11 (6-14) Blood Urea Nitrogen 10 mg/dL (7-20) Creatinine 0.8 mg/dL (0.6-1.0) Estimated GFR (Cockcroft-Gault) 70.7 BUN/Creatinine Ratio 13 (6-20) Glucose Level 117 mg/dL (70-99) Calcium Level 9.7 mg/dL (8.5-10.1) Total Bilirubin 0.4 mg/dL (0.2-1.0) Aspartate Amino Transf (AST/SGOT) 34 U/L (15-37) Alanine Aminotransferase (ALT/SGPT) 32 U/L (14-59) Alkaline Phosphatase 113 U/L (46-116) Total Protein 7.7 g/dL (6.4-8.2) Albumin 3.4 g/dL (3.4-5.0) Albumin/Globulin Ratio 0.8 (1.0-1.7) Lipase 83 U/L (73-393) Medications Current Medications Fentanyl Citrate (Fentanyl 2ml Vial) 50 mcg PRN Q15MIN PRN IV PAIN GREATER THAN 3/10 Last administered on 03/25/17 18:03; Start 03/25/17 at 17:00; Stop 03/25/17 at 19:35; Status DC Iohexol (Omnipaque 300 Mg/ml) 75 ml 1X ONCE IV Last administered on 17:40; Start 03/25/17 at 17:15; Stop 03/25/17 at 17:16; Status DC Info (Do NOT chart on this entry -- for MONITORING) 1 each PRN DAILY PRN MC SEE COMMENTS; Start 03/25/17 at 17:00; Stop 03/27/17 at 16:59 Ondansetron HCl (Zofran) 4 mg PRN Q8HRS PRN IV NAUSEA/VOMITING; Start at 18:30; Stop 03/25/17 at 19:35; Status DC Fentanyl Citrate (Fentanyl 2ml Vial) 50 mcg PRN Q2HR PRN IV PAIN; Start at 18:30; Stop 03/26/17 at 18:29 Sodium Chloride 1,000 ml @ 75 mls/hr [id number] IV Last administered on 08:48; Start 03/25/17 at 19:00; Stop 03/26/17 at 18:59 Ondansetron HCl (Zofran) 4 mg PRN Q6HRS PRN IV NAUSEA/VOMITING; Start at 19:45 Famotidine (Pepcid Vial) 20 mg QHS IVP Last administered on 03/25/17 21:32; Start 03/25/17 at 21:00 Bisacodyl (Dulcolax Supp) 10 mg PRN DAILY PRN RC CONSTIPATION; Start 03/25/17 at 19:45 Levothyroxine Sodium 25 mcg/ Sodium Chloride 5 ml @ 100 mls/hr DAILY IVP Last administered on 03/26/17 08:48; Start 03/26/17 at 09:00 Diphenhydramine HCl (Benadryl) 25 mg PRN QHS PRN IVP INSOMNIA; Start 03/25/17 at 19:45 Throat Lozenges (Cepacol Sore Throat Lozenge) 1 katelynn PRN Q2HRS PRN PO SORE THROAT Last administered on 03/25/17 21:32; Start 03/25/17 at 20:30 Active Scripts Active Hydrocodone-Apap 5-325 (Hydrocodone Bit/Acetaminophen) 1 Each Tablet 1 Tab PO PRN Q6HRS PRN Reported Dulcolax (Bisacodyl) 10 Mg Supp.rect 10 Mg RC PRN DAILY PRN Fleet Enema (Na Phos,M-B/Na Phos,Di-Ba) 133 Ml Enema 1 Each RC DAILY PRN Tramadol Hcl 50 Mg Tablet 1 Tab PO PRN Q6HRS Mucinex (Guaifenesin) 600 Mg Tablet.er 1 Tab PO BID PRN Protonix (Pantoprazole Sodium) 40 Mg Tablet.dr 1 Tab PO DAILY Levothyroxine Sodium 50 Mcg Tablet 1 Tab PO DAILY Vitamin D (Cholecalciferol (Vitamin D3)) 2,000 Unit Capsule 2,000 Unit PO TID Cyclobenzaprine Hcl 10 Mg Tablet 10 Mg PO TID Lortab 5-325 mg Tablet (Hydrocodone/Acetaminophen) 1 Each Tablet 1 Tab PO PRN Q6HRS PRN Fioricet 50-300-40 Mg Capsule (Butalb/Acetaminophen/Caffeine) 1 Each Capsule 1 Each PO PRN Q4HRS PRN Gabapentin 100 Mg Capsule 300 Mg PO TID [gi cocktail] 500 Mg PO PRN PRN [Clonidine/Pump] [Fentanyl/Pump] Aspirin 325 Mg Tablet 1 Tab PO DAILY Bupivacaine 0.25% On-Q Pump (Bupivacaine Hcl/Pf) 100 Ml Els.supervisor vacuum metalizing.fr 100 Ml IJ PER PAIN PUMP Alprazolam 0.5 Mg Tab.rapdis 0.5 Mg PO PRN Zofran Odt (Ondansetron) 8 Mg Tab.rapdis 8 Mg PO PRN Ambien (Zolpidem Tartrate) 5 Mg Tablet 5 Mg PO HS Risperdal (Risperidone) 0.5 Mg Tablet 0.5 Mg PO HS [domperadone] 10mg Tablet 20 Mg PO TIDAC Zocor (Simvastatin) 20 Mg Tablet 20 Mg PO HS Wellbutrin (Bupropion Hcl) 100 Mg Tablet 150 Mg PO DAILY Vitals/I & O Vital Sign - Last 24 Hours 03/25/17 03/25/17 03/25/17 03/25/17 16:16 16:34 16:55 17:04 Temp 98.4 98.4 Pulse 107 80 Resp 24 22 13 B/P (MAP) 154/119 (131) 140/95 (110) 135/82 (99) Pulse Ox 98 97 93 O2 Delivery Room Air Room Air Room Air Room Air 03/25/17 03/25/17 03/25/17 03/25/17 17:44 18:03 18:14 18:33 Pulse 66 Resp 20 12 20 B/P (MAP) 137/80 (99) 135/77 (96) Pulse Ox 95 95 94 O2 Delivery Room Air Room Air Room Air Room Air 03/25/17 03/25/17 03/25/17 03/25/17 18:44 19:22 19:45 19:59 Temp 98.2 98.2 Pulse 66 66 72 Resp 12 17 18 B/P (MAP) 139/81 (100) 149/82 (104) 144/80 (101) Pulse Ox 99 93 O2 Delivery Room Air Room Air Nasal Cannula Room Air O2 Flow Rate 2.0 03/25/17 03/26/17 03/26/17 03/26/17 23:11 03:08 07:00 11:42 Temp 98.6 98.8 97.9 98.0 98.6 98.8 97.9 98.0 Pulse 84 68 69 70 Resp 18 18 18 18 B/P (MAP) 155/86 (109) 137/83 (101) 131/93 (106) 143/86 (105) Pulse Ox 96 97 92 93 O2 Delivery Room Air Room Air Room Air Room Air Intake and Output 03/25/17 03/25/17 03/26/17 15:00 23:00 07:00 Output Total 100 ml Balance -100 ml SANGEETA BARKLEY MD Mar 26, 2017 12:14
[2017-03-26 15:22] VITALS: BP 133/69
[2017-03-26] MEDS: ONDANSETRON PF 4 MG/2 ML VIAL. IV PRN (17:55)
[2017-03-26 19:00] VITALS: BP 144/85
[2017-03-26] MEDS ORDERED: fentaNYL PF VIAL 100 MCG/2 ML VIAL IV PRN (19:45)
[2017-03-26] MEDS: FAMOTIDINE 20 MG/2 ML VIAL IVP SCH (20:18)
[2017-03-26 23:00] VITALS: BP 138/83
[2017-03-27] MEDS ORDERED: ALPRAZolam 0.5 MG TABLET PO ONE (01:30)
[2017-03-27 03:00] VITALS: BP 137/71
[2017-03-27 07:00] VITALS: BP 114/70
--- NOTE | 2017-03-27 08:58 | RAD ---
Abdomen, 2 views, 03/27/2017: History: Abdominal pain, recent diarrhea Comparison is made to a study from 12/20/2016. Gas is present in large and small bowel in a nonspecific pattern. No free air is present in the abdomen. There is no evidence of organomegaly. Surgical clips are present in the abdomen and pelvis. Spinal stimulator leads extend into the thoracolumbar spinal canal. Surgical rods and screws are evident in the lower lumbar spine with an underlying laminectomy defect IMPRESSION: No acute abdominal abnormality is detected.
[2017-03-27] MEDS: LEVOTHYROXINE SODIUM 25 MCG in IV NORMAL SALINE 50ML 5 ML IVP SCH (09:17)
--- NOTE | 2017-03-27 09:57 | PDOC ---
SURGICAL PROGRESS NOTE Subjective some abdominal pain nausea + diarrhea Vital Signs Vital Signs Date Time Temp Pulse Resp B/P (MAP) Pulse Ox O2 Delivery O2 Flow Rate FiO2 03/27/17 08:00 Room Air 03/27/17 07:00 98.2 64 18 114/70 (85) 90 98.2 I&O Intake and Output 03/27/17 07:00 Intake Total 2155 ml Output Total 650 ml Balance 1505 ml Intake Oral 1150 ml IV Total 1005 ml Output Urine Total 650 ml General: Alert, Oriented X3, Cooperative, No acute distress Abdomen: Soft, Other (ND, tender lower abdomen) Labs Laboratory Tests Test 03/25/17 16:30 White Blood Count 8.5 x10^3/uL (4.0-11.0) Red Blood Count 4.99 x10^6/uL (3.50-5.40) Hemoglobin 13.4 g/dL (12.0-15.5) Hematocrit 42.0 % (36.0-47.0) Mean Corpuscular Volume 84 fL (79-100) Mean Corpuscular Hemoglobin 27 pg (25-35) Mean Corpuscular Hemoglobin Concent 32 g/dL (31-37) Red Cell Distribution Width 16.8 % (11.5-14.5) Platelet Count 383 x10^3/uL (140-400) Neutrophils (%) (Auto) 39 % (31-73) Lymphocytes (%) (Auto) 46 % (24-48) Monocytes (%) (Auto) 11 % (0-9) Eosinophils (%) (Auto) 3 % (0-3) Basophils (%) (Auto) 1 % (0-3) Neutrophils # (Auto) 3.4 x10^3uL (1.8-7.7) Lymphocytes # (Auto) 3.9 x10^3/uL (1.0-4.8) Monocytes # (Auto) 0.9 x10^3/uL (0.0-1.1) Eosinophils # (Auto) 0.2 x10^3/uL (0.0-0.7) Basophils # (Auto) 0.1 x10^3/uL (0.0-0.2) Sodium Level 142 mmol/L (136-145) Potassium Level 3.7 mmol/L (3.5-5.1) Chloride Level 104 mmol/L (98-107) Carbon Dioxide Level 27 mmol/L (21-32) Anion Gap 11 (6-14) Blood Urea Nitrogen 10 mg/dL (7-20) Creatinine 0.8 mg/dL (0.6-1.0) Estimated GFR (Cockcroft-Gault) 70.7 BUN/Creatinine Ratio 13 (6-20) Glucose Level 117 mg/dL (70-99) Calcium Level 9.7 mg/dL (8.5-10.1) Total Bilirubin 0.4 mg/dL (0.2-1.0) Aspartate Amino Transf (AST/SGOT) 34 U/L (15-37) Alanine Aminotransferase (ALT/SGPT) 32 U/L (14-59) Alkaline Phosphatase 113 U/L (46-116) Total Protein 7.7 g/dL (6.4-8.2) Albumin 3.4 g/dL (3.4-5.0) Albumin/Globulin Ratio 0.8 (1.0-1.7) Lipase 83 U/L (73-393) Assessment/Plan VIH, SBO xrays without obstruction will review with Dr Steele--surgical plans Problems: BRADLEY FRANCOIS APRN Mar 27, 2017 09:57
--- NOTE | 2017-03-27 10:01 | PDOC ---
SURGICAL PROGRESS NOTE Subjective still complains of pain having diarrhea, some nausea, no vomiting at bedside Vital Signs Vital Signs Date Time Temp Pulse Resp B/P (MAP) Pulse Ox O2 Delivery O2 Flow Rate FiO2 03/27/17 08:00 Room Air 03/27/17 07:00 98.2 64 18 114/70 (85) 90 98.2 I&O Intake and Output 03/27/17 07:00 Intake Total 2155 ml Output Total 650 ml Balance 1505 ml Intake Oral 1150 ml IV Total 1005 ml Output Urine Total 650 ml PATIENT HAS A ELLIOTT: No General: Alert, Oriented X3, No acute distress Abdomen: Soft, Other (minimally TTP, no evidence of incarcerated contents) Labs Laboratory Tests Test 03/25/17 16:30 White Blood Count 8.5 x10^3/uL (4.0-11.0) Red Blood Count 4.99 x10^6/uL (3.50-5.40) Hemoglobin 13.4 g/dL (12.0-15.5) Hematocrit 42.0 % (36.0-47.0) Mean Corpuscular Volume 84 fL (79-100) Mean Corpuscular Hemoglobin 27 pg (25-35) Mean Corpuscular Hemoglobin Concent 32 g/dL (31-37) Red Cell Distribution Width 16.8 % (11.5-14.5) Platelet Count 383 x10^3/uL (140-400) Neutrophils (%) (Auto) 39 % (31-73) Lymphocytes (%) (Auto) 46 % (24-48) Monocytes (%) (Auto) 11 % (0-9) Eosinophils (%) (Auto) 3 % (0-3) Basophils (%) (Auto) 1 % (0-3) Neutrophils # (Auto) 3.4 x10^3uL (1.8-7.7) Lymphocytes # (Auto) 3.9 x10^3/uL (1.0-4.8) Monocytes # (Auto) 0.9 x10^3/uL (0.0-1.1) Eosinophils # (Auto) 0.2 x10^3/uL (0.0-0.7) Basophils # (Auto) 0.1 x10^3/uL (0.0-0.2) Sodium Level 142 mmol/L (136-145) Potassium Level 3.7 mmol/L (3.5-5.1) Chloride Level 104 mmol/L (98-107) Carbon Dioxide Level 27 mmol/L (21-32) Anion Gap 11 (6-14) Blood Urea Nitrogen 10 mg/dL (7-20) Creatinine 0.8 mg/dL (0.6-1.0) Estimated GFR (Cockcroft-Gault) 70.7 BUN/Creatinine Ratio 13 (6-20) Glucose Level 117 mg/dL (70-99) Calcium Level 9.7 mg/dL (8.5-10.1) Total Bilirubin 0.4 mg/dL (0.2-1.0) Aspartate Amino Transf (AST/SGOT) 34 U/L (15-37) Alanine Aminotransferase (ALT/SGPT) 32 U/L (14-59) Alkaline Phosphatase 113 U/L (46-116) Total Protein 7.7 g/dL (6.4-8.2) Albumin 3.4 g/dL (3.4-5.0) Albumin/Globulin Ratio 0.8 (1.0-1.7) Lipase 83 U/L (73-393) I have reviewed the following plain films from this AM reviewed Assessment/Plan pSBO 2/2 recurrent VIH obesity chronic back and neck pain hx of colitis discussed issues surrounding surgery, increased risk of recurrence due to previous attempted repairs, weight, probable hostile abdomen also chance for her to continue to have pain despite hernia repair will d/w Dr Dora acuna clears ambulate Problems: TRESSA DAWN MD Mar 27, 2017 10:01
[2017-03-27 11:00] VITALS: BP 127/70
[2017-03-27] MEDS: ENOXAPARIN 40 MG/0.4 ML SYRINGE. SQ SCH (11:06)
[2017-03-27] MEDS: IV NORMAL SALINE 1000ML BAG 1,000 ML IV SCH (11:07)
[2017-03-27] MEDS ORDERED: DIPHENHYDRAMINE/ZINC ACETATE 2%/0.1% TOPICAL CREAM 28GM TUBE. TP PRN (11:30)
[2017-03-27] MEDS: BUTALB/APAP/CAFEIN 50/325/40MG TABLET. PO PRN ×2 (11:37→17:14)
--- NOTE | 2017-03-27 13:33 | PDOC ---
PROGRESS NOTES Chief Complaint Chief Complaint 1. Abd ventral hernia with fat and bowel in it with possible obstrxn 2. Hx multiple abd sxs in past Bambi fundoplication etc 3. Diastasis recti 4. HTN , Dyslipidemia, HYpothyroidism -chronic stable 5,. COugh 6. Obesity bMI 37.8 History of Present Illness History of Present Illness Looks good pain better Dr. John following, Dr. Cedric toussaint today She has had multiple abd surgeries in the past by Dr. John clear liquid diet, advance to fulls some intermittent colicky pain Cont IVF pain meds ALl po meds on hold synthroid to PO Dw her and RN at bedside Vitals Vitals Vital Signs Date Time Temp Pulse Resp B/P (MAP) Pulse Ox O2 Delivery O2 Flow Rate FiO2 03/27/17 11:00 97.8 59 18 127/70 (89) 92 Room Air 97.8 Physical Exam General: Alert, Oriented X3, No acute distress Heart: Regular rate Lungs: Clear, Other Abdomen: Soft, Other (minimally TTP, no evidence of incarcerated contents) Extremities: Other (recent TKR scar) Skin: No rashes Review of Systems Review of Systems abd pain better no event Assessment and Plan Assessmemt and Plan adat, cont current IV fluid surg following improved Problems: Comment Review of Relevant I have reviewed the following items néstor (where applicable) has been applied. Labs Laboratory Tests Test 03/25/17 16:30 White Blood Count 8.5 x10^3/uL (4.0-11.0) Red Blood Count 4.99 x10^6/uL (3.50-5.40) Hemoglobin 13.4 g/dL (12.0-15.5) Hematocrit 42.0 % (36.0-47.0) Mean Corpuscular Volume 84 fL (79-100) Mean Corpuscular Hemoglobin 27 pg (25-35) Mean Corpuscular Hemoglobin Concent 32 g/dL (31-37) Red Cell Distribution Width 16.8 % (11.5-14.5) Platelet Count 383 x10^3/uL (140-400) Neutrophils (%) (Auto) 39 % (31-73) Lymphocytes (%) (Auto) 46 % (24-48) Monocytes (%) (Auto) 11 % (0-9) Eosinophils (%) (Auto) 3 % (0-3) Basophils (%) (Auto) 1 % (0-3) Neutrophils # (Auto) 3.4 x10^3uL (1.8-7.7) Lymphocytes # (Auto) 3.9 x10^3/uL (1.0-4.8) Monocytes # (Auto) 0.9 x10^3/uL (0.0-1.1) Eosinophils # (Auto) 0.2 x10^3/uL (0.0-0.7) Basophils # (Auto) 0.1 x10^3/uL (0.0-0.2) Sodium Level 142 mmol/L (136-145) Potassium Level 3.7 mmol/L (3.5-5.1) Chloride Level 104 mmol/L (98-107) Carbon Dioxide Level 27 mmol/L (21-32) Anion Gap 11 (6-14) Blood Urea Nitrogen 10 mg/dL (7-20) Creatinine 0.8 mg/dL (0.6-1.0) Estimated GFR (Cockcroft-Gault) 70.7 BUN/Creatinine Ratio 13 (6-20) Glucose Level 117 mg/dL (70-99) Calcium Level 9.7 mg/dL (8.5-10.1) Total Bilirubin 0.4 mg/dL (0.2-1.0) Aspartate Amino Transf (AST/SGOT) 34 U/L (15-37) Alanine Aminotransferase (ALT/SGPT) 32 U/L (14-59) Alkaline Phosphatase 113 U/L (46-116) Total Protein 7.7 g/dL (6.4-8.2) Albumin 3.4 g/dL (3.4-5.0) Albumin/Globulin Ratio 0.8 (1.0-1.7) Lipase 83 U/L (73-393) Medications Current Medications Fentanyl Citrate (Fentanyl 2ml Vial) 50 mcg PRN Q15MIN PRN IV PAIN GREATER THAN 3/10 Last administered on 03/25/17 18:03; Start 03/25/17 at 17:00; Stop 03/25/17 at 19:35; Status DC Iohexol (Omnipaque 300 Mg/ml) 75 ml 1X ONCE IV Last administered on 17:40; Start 03/25/17 at 17:15; Stop 03/25/17 at 17:16; Status DC Info (Do NOT chart on this entry -- for MONITORING) 1 each PRN DAILY PRN MC SEE COMMENTS; Start 03/25/17 at 17:00; Stop 03/27/17 at 16:59 Ondansetron HCl (Zofran) 4 mg PRN Q8HRS PRN IV NAUSEA/VOMITING; Start at 18:30; Stop 03/25/17 at 19:35; Status DC Fentanyl Citrate (Fentanyl 2ml Vial) 50 mcg PRN Q2HR PRN IV PAIN Last administered on 03/26/17 16:38; Start 03/25/17 at 18:30; Stop 03/26/17 at 18 :29; Status DC Sodium Chloride 1,000 ml @ 75 mls/hr [id number] IV Last administered on 08:48; Start 03/25/17 at 19:00; Stop 03/26/17 at 18:59; Status DC Ondansetron HCl (Zofran) 4 mg PRN Q6HRS PRN IV NAUSEA/VOMITING Last administered on 03/26/17 17:55; Start 03/25/17 at 19:45 Famotidine (Pepcid Vial) 20 mg QHS IVP Last administered on 03/26/17 20:18; Start 03/25/17 at 21:00 Bisacodyl (Dulcolax Supp) 10 mg PRN DAILY PRN RC CONSTIPATION; Start 03/25/17 at 19:45 Levothyroxine Sodium 25 mcg/ Sodium Chloride 5 ml @ 100 mls/hr DAILY IVP Last administered on 03/27/17 09:17; Start 03/26/17 at 09:00 Diphenhydramine HCl (Benadryl) 25 mg PRN QHS PRN IVP INSOMNIA Last administered on 03/27/17 02:53; Start 03/25/17 at 19:45 Throat Lozenges (Cepacol Sore Throat Lozenge) 1 katelynn PRN Q2HRS PRN PO SORE THROAT Last administered on 03/25/17 21:32; Start 03/25/17 at 20:30 Fentanyl Citrate (Fentanyl 2ml Vial) 50 mcg PRN Q2HR PRN IV PAIN Last administered on 11/26/17at 20:14; Start 03/26/17 at 19:45 Sodium Chloride 1,000 ml @ 75 mls/hr [id number] IV Last administered on 11:07; Start 03/26/17 at 20:00 Alprazolam (Xanax) 0.5 mg 1X ONCE PO Last administered on 03/27/17 01:32; Start 03/27/17 at 01:30; Stop 03/27/17 at 01:31; Status DC Enoxaparin Sodium (Lovenox 40mg Syringe) 40 mg Q24H SQ Last administered on 11:06; Start 03/27/17 at 11:00 Zinc Acetate/ Diphenhydramine (Benadryl Topical) 1 astrid PRN Q4HRS PRN TP puritis Last administered on 03/27/17 11:37; Start 03/27/17 at 11:30 Acetaminophen/ Butalbital/ Caffeine (Fioricet) 1 tab PRN Q6HRS PRN PO MIGRAINE HEADACHE Last administered on 03/27/17 11:37; Start 03/27/17 at 11:30 Active Scripts Active Hydrocodone-Apap 5-325 (Hydrocodone Bit/Acetaminophen) 1 Each Tablet 1 Tab PO PRN Q6HRS PRN Reported Dulcolax (Bisacodyl) 10 Mg Supp.rect 10 Mg RC PRN DAILY PRN Fleet Enema (Na Phos,M-B/Na Phos,Di-Ba) 133 Ml Enema 1 Each RC DAILY PRN Tramadol Hcl 50 Mg Tablet 1 Tab PO PRN Q6HRS Mucinex (Guaifenesin) 600 Mg Tablet.er 1 Tab PO BID PRN Protonix (Pantoprazole Sodium) 40 Mg Tablet.dr 1 Tab PO DAILY Levothyroxine Sodium 50 Mcg Tablet 1 Tab PO DAILY Vitamin D (Cholecalciferol (Vitamin D3)) 2,000 Unit Capsule 2,000 Unit PO TID Cyclobenzaprine Hcl 10 Mg Tablet 10 Mg PO TID Lortab 5-325 mg Tablet (Hydrocodone/Acetaminophen) 1 Each Tablet 1 Tab PO PRN Q6HRS PRN Fioricet 50-300-40 Mg Capsule (Butalb/Acetaminophen/Caffeine) 1 Each Capsule 1 Each PO PRN Q4HRS PRN Gabapentin 100 Mg Capsule 300 Mg PO TID [gi cocktail] 500 Mg PO PRN PRN [Clonidine/Pump] [Fentanyl/Pump] Aspirin 325 Mg Tablet 1 Tab PO DAILY Bupivacaine 0.25% On-Q Pump (Bupivacaine Hcl/Pf) 100 Ml Els.cushion worker.fr 100 Ml IJ PER PAIN PUMP Alprazolam 0.5 Mg Tab.rapdis 0.5 Mg PO PRN Zofran Odt (Ondansetron) 8 Mg Tab.rapdis 8 Mg PO PRN Ambien (Zolpidem Tartrate) 5 Mg Tablet 5 Mg PO HS Risperdal (Risperidone) 0.5 Mg Tablet 0.5 Mg PO HS [domperadone] 10mg Tablet 20 Mg PO TIDAC Zocor (Simvastatin) 20 Mg Tablet 20 Mg PO HS Wellbutrin (Bupropion Hcl) 100 Mg Tablet 150 Mg PO DAILY Vitals/I & O Vital Sign - Last 24 Hours 03/26/17 03/26/17 03/26/17 03/26/17 15:22 16:38 19:00 20:14 Temp 98.1 98.1 98.1 98.1 Pulse 69 65 Resp 18 20 16 B/P (MAP) 133/69 (90) 144/85 (104) Pulse Ox 93 94 O2 Delivery Room Air Room Air Room Air Room Air 03/26/17 03/26/17 03/27/17 03/27/17 20:44 23:00 03:00 07:00 Temp 97.9 97.9 98.2 97.9 97.9 98.2 Pulse 82 77 64 Resp 16 16 18 B/P (MAP) 138/83 (101) 137/71 (93) 114/70 (85) Pulse Ox 95 95 90 O2 Delivery Room Air Room Air BiPAP/CPAP BiPAP/CPAP 03/27/17 03/27/17 08:00 11:00 Temp 97.8 97.8 Pulse 59 Resp 18 B/P (MAP) 127/70 (89) Pulse Ox 92 O2 Delivery Room Air Room Air Intake and Output 03/26/17 03/26/17 03/27/17 15:00 23:00 07:00 Intake Total 1005 ml 500 ml 650 ml Output Total 650 ml Balance 1005 ml 500 ml 0 ml CHIVO WATSON MD Mar 27, 2017 13:33
[2017-03-27 15:09] VITALS: BP 106/67
[2017-03-27] MEDS: ONDANSETRON PF 4 MG/2 ML VIAL. IV PRN (18:21)
[2017-03-27 19:00] VITALS: BP 139/80
[2017-03-27] MEDS: FAMOTIDINE 20 MG/2 ML VIAL IVP SCH (21:01)
[2017-03-27] MEDS: ALPRAZolam 0.5 MG TABLET PO PRN (22:31)
[2017-03-27] MEDS: ZOLPIDEM 5 MG TABLET. PO PRN (22:31)
[2017-03-27 23:00] VITALS: BP 109/72
[2017-03-28] MEDS: IV NORMAL SALINE 1000ML BAG 1,000 ML IV SCH (01:32)
[2017-03-28 03:00] VITALS: BP 102/66
[2017-03-28 07:00] VITALS: BP 103/56
[2017-03-28] MEDS: LEVOTHYROXINE SODIUM 25 MCG in IV NORMAL SALINE 50ML 5 ML IVP SCH (09:06)
[2017-03-28] MEDS: BUTALB/APAP/CAFEIN 50/325/40MG TABLET. PO PRN (10:09)
[2017-03-28 10:50] VITALS: BP 136/81
[2017-03-28] MEDS ORDERED: HYDROcodone/APAP 5/325MG 1 TAB TABLET PO PRN (11:45)
[2017-03-28] MEDS ORDERED: traMADol 50 MG TABLET PO PRN (11:45)
--- NOTE | 2017-03-28 11:50 | PDOC ---
PROGRESS NOTES Chief Complaint Chief Complaint 1. Abd ventral hernia with fat and bowel in it with possible obstrxn 2. Hx multiple abd sxs in past s/p Bambi fundoplication 3. Diastasis recti 4. HTN , Dyslipidemia, HYpothyroidism -chronic stable 5,. Cough 6. Obesity bMI 37.8 7. OA, knee pain, weakness, History of Present Illness History of Present Illness Looks imrpoved pain better Dr. John following, per patient, plan is for surgery in a few weeks, plan DC to rehab tomorrow lls some intermittent colicky pain dc IVF pain meds ALl po meds on hold synthroid to PO Dw her and RN at bedside Vitals Vitals Vital Signs Date Time Temp Pulse Resp B/P (MAP) Pulse Ox O2 Delivery O2 Flow Rate FiO2 03/28/17 10:50 97.9 65 18 136/81 (99) 94 Room Air 97.9 03/27/17 20:00 2.0 Physical Exam General: Alert, Oriented X3, No acute distress Heart: Regular rate Lungs: Clear, Other Abdomen: Soft, Other (minimally TTP, no evidence of incarcerated contents) Extremities: No clubbing, No edema, Other (recent TKR scar) Skin: No rashes Review of Systems Review of Systems cough knee pain slept well eldon full liquids, mostly Comment Review of Relevant I have reviewed the following items néstor (where applicable) has been applied. Medications Current Medications Fentanyl Citrate (Fentanyl 2ml Vial) 50 mcg PRN Q15MIN PRN IV PAIN GREATER THAN 3/10 Last administered on 03/25/17 18:03; Start 03/25/17 at 17:00; Stop 03/25/17 at 19:35; Status DC Iohexol (Omnipaque 300 Mg/ml) 75 ml 1X ONCE IV Last administered on 17:40; Start 03/25/17 at 17:15; Stop 03/25/17 at 17:16; Status DC Info (Do NOT chart on this entry -- for MONITORING) 1 each PRN DAILY PRN MC SEE COMMENTS; Start 03/25/17 at 17:00; Stop 03/27/17 at 16:59; Status DC Ondansetron HCl (Zofran) 4 mg PRN Q8HRS PRN IV NAUSEA/VOMITING; Start at 18:30; Stop 03/25/17 at 19:35; Status DC Fentanyl Citrate (Fentanyl 2ml Vial) 50 mcg PRN Q2HR PRN IV PAIN Last administered on 03/26/17 16:38; Start 03/25/17 at 18:30; Stop 03/26/17 at 18 :29; Status DC Sodium Chloride 1,000 ml @ 75 mls/hr [id number] IV Last administered on 08:48; Start 03/25/17 at 19:00; Stop 03/26/17 at 18:59; Status DC Ondansetron HCl (Zofran) 4 mg PRN Q6HRS PRN IV NAUSEA/VOMITING Last administered on 03/27/17 18:21; Start 03/25/17 at 19:45 Famotidine (Pepcid Vial) 20 mg QHS IVP Last administered on 03/27/17 21:01; Start 03/25/17 at 21:00 Bisacodyl (Dulcolax Supp) 10 mg PRN DAILY PRN RC CONSTIPATION; Start 03/25/17 at 19:45 Levothyroxine Sodium 25 mcg/ Sodium Chloride 5 ml @ 100 mls/hr DAILY IVP Last administered on 03/28/17 09:06; Start 03/26/17 at 09:00 Diphenhydramine HCl (Benadryl) 25 mg PRN QHS PRN IVP INSOMNIA Last administered on 03/27/17 02:53; Start 03/25/17 at 19:45 Throat Lozenges (Cepacol Sore Throat Lozenge) 1 katelynn PRN Q2HRS PRN PO SORE THROAT Last administered on 03/25/17 21:32; Start 03/25/17 at 20:30 Fentanyl Citrate (Fentanyl 2ml Vial) 50 mcg PRN Q2HR PRN IV PAIN Last administered on 03/26/17 20:14; Start 03/26/17 at 19:45 Sodium Chloride 1,000 ml @ 75 mls/hr [id number] IV Last administered on 01:32; Start 03/26/17 at 20:00 Alprazolam (Xanax) 0.5 mg 1X ONCE PO Last administered on 03/27/17 01:32; Start 03/27/17 at 01:30; Stop 03/27/17 at 01:31; Status DC Enoxaparin Sodium (Lovenox 40mg Syringe) 40 mg Q24H SQ Last administered on 11:06; Start 03/27/17 at 11:00 Zinc Acetate/ Diphenhydramine (Benadryl Topical) 1 astrid PRN Q4HRS PRN TP puritis Last administered on 03/27/17 11:37; Start 03/27/17 at 11:30 Acetaminophen/ Butalbital/ Caffeine (Fioricet) 1 tab PRN Q6HRS PRN PO MIGRAINE HEADACHE Last administered on 03/28/17 10:09; Start 03/27/17 at 11:30 Alprazolam (Xanax) 0.5 mg PRN Q8HRS PRN PO ANXIETY / AGITATION Last administered on 03/27/17 22:31; Start 03/27/17 at 22:15 Zolpidem Tartrate (Ambien) 5 mg PRN QHS PRN PO INSOMNIA Last administered on 22:31; Start 03/27/17 at 22:15 Active Scripts Active Hydrocodone-Apap 5-325 (Hydrocodone Bit/Acetaminophen) 1 Each Tablet 1 Tab PO PRN Q6HRS PRN Reported Dulcolax (Bisacodyl) 10 Mg Supp.rect 10 Mg RC PRN DAILY PRN Fleet Enema (Na Phos,M-B/Na Phos,Di-Ba) 133 Ml Enema 1 Each RC DAILY PRN Tramadol Hcl 50 Mg Tablet 1 Tab PO PRN Q6HRS Mucinex (Guaifenesin) 600 Mg Tablet.er 1 Tab PO BID PRN Protonix (Pantoprazole Sodium) 40 Mg Tablet.dr 1 Tab PO DAILY Levothyroxine Sodium 50 Mcg Tablet 1 Tab PO DAILY Vitamin D (Cholecalciferol (Vitamin D3)) 2,000 Unit Capsule 2,000 Unit PO TID Cyclobenzaprine Hcl 10 Mg Tablet 10 Mg PO TID Lortab 5-325 mg Tablet (Hydrocodone/Acetaminophen) 1 Each Tablet 1 Tab PO PRN Q6HRS PRN Fioricet 50-300-40 Mg Capsule (Butalb/Acetaminophen/Caffeine) 1 Each Capsule 1 Each PO PRN Q4HRS PRN Gabapentin 100 Mg Capsule 300 Mg PO TID [gi cocktail] 500 Mg PO PRN PRN [Clonidine/Pump] [Fentanyl/Pump] Aspirin 325 Mg Tablet 1 Tab PO DAILY Bupivacaine 0.25% On-Q Pump (Bupivacaine Hcl/Pf) 100 Ml Els.catalyst manufacturing operator.fr 100 Ml IJ PER PAIN PUMP Alprazolam 0.5 Mg Tab.rapdis 0.5 Mg PO PRN Zofran Odt (Ondansetron) 8 Mg Tab.rapdis 8 Mg PO PRN Ambien (Zolpidem Tartrate) 5 Mg Tablet 5 Mg PO HS Risperdal (Risperidone) 0.5 Mg Tablet 0.5 Mg PO HS [domperadone] 10mg Tablet 20 Mg PO TIDAC Zocor (Simvastatin) 20 Mg Tablet 20 Mg PO HS Wellbutrin (Bupropion Hcl) 100 Mg Tablet 150 Mg PO DAILY Vitals/I & O Vital Sign - Last 24 Hours 03/27/17 03/27/17 03/27/17 03/27/17 15:09 19:00 20:00 23:00 Temp 97.8 100.4 99.0 97.8 100.4 99.0 Pulse 74 69 79 Resp 18 18 18 B/P (MAP) 106/67 (80) 139/80 (99) 109/72 (84) Pulse Ox 92 94 96 O2 Delivery Room Air Room Air Room Air Room Air O2 Flow Rate 2.0 03/28/17 03/28/17 03/28/17 03:00 07:00 10:50 Temp 99.0 97.9 97.9 99.0 97.9 97.9 Pulse 74 58 65 Resp 18 18 18 B/P (MAP) 102/66 (78) 103/56 (72) 136/81 (99) Pulse Ox 96 90 94 O2 Delivery Room Air Room Air Room Air Intake and Output 03/27/17 03/27/17 03/28/17 15:00 23:00 07:00 Intake Total 1000 ml 800 ml 300 ml Output Total 200 ml Balance 1000 ml 600 ml 300 ml CHIVO WATSON MD Mar 28, 2017 11:50
[2017-03-28] MEDS: ENOXAPARIN 40 MG/0.4 ML SYRINGE. SQ SCH (12:00)
[2017-03-28] MEDS: buPROPion XL 150 MG TAB.ER.24H. PO SCH (12:00)
[2017-03-28] MEDS: guaiFENesin DM 200MG/20MG 10 ML SYRUP PO PRN ×2 (12:03→20:58)
--- NOTE | 2017-03-28 12:58 | PDOC ---
SURGICAL PROGRESS NOTE Subjective Pt without c/o, eldon PO, passing loose stools Vital Signs Vital Signs Date Time Temp Pulse Resp B/P (MAP) Pulse Ox O2 Delivery O2 Flow Rate FiO2 03/28/17 10:50 97.9 65 18 136/81 (99) 94 Room Air 97.9 03/27/17 20:00 2.0 I&O Intake and Output 03/28/17 07:00 Intake Total 2100 ml Output Total 200 ml Balance 1900 ml Intake Oral 1100 ml IV Total 1000 ml Output Urine Total 200 ml # Voids 5 General: Alert, Oriented X3, Cooperative Abdomen: Soft, No tenderness Problem List VIH plan elective repair OK to d/c from surg POV Problems: KEENA DEVLIN MD Mar 28, 2017 12:58
[2017-03-28] MEDS: CYCLOBENZAPRINE 10 MG TABLET. PO SCH ×2 (14:14→20:59)
[2017-03-28] MEDS: GABAPENTIN 300 MG CAPSULE. PO SCH ×2 (14:14→20:59)
[2017-03-28 15:00] VITALS: BP 94/57
[2017-03-28] MEDS: ONDANSETRON PF 4 MG/2 ML VIAL. IV PRN (18:26)
[2017-03-28 19:00] VITALS: BP 122/77
[2017-03-28] MEDS: BENZOCAINE/MENTHOL LOZENGE. PO PRN (20:58)
[2017-03-28] MEDS: ZOLPIDEM 5 MG TABLET. PO PRN (20:59)
[2017-03-28] MEDS: ALPRAZolam 0.5 MG TABLET PO PRN (20:59)
[2017-03-28] MEDS ORDERED: FAMOTIDINE 20 MG TABLET. PO SCH (21:00)
[2017-03-28] MEDS ORDERED: NYST15CR2 TP (22:49)
[2017-03-28 23:00] VITALS: BP 118/70
[2017-03-28] MEDS ORDERED: NYSTATIN 100,000 UNIT/GM TOPICAL CREAM 15GM TUBE. TP SCH (23:00)
[2017-03-28] MEDS ORDERED: TRIAMCINOLONE ACETONIDE 0.1% TOPICAL CREAM 15GM TUBE. TP SCH (23:00)
[2017-03-28] MEDS ORDERED: TRIAMCINOLONE ACETONIDE 0.1% TOPICAL CREAM 15GM TUBE. TP PRN (23:30)
[2017-03-29 03:00] VITALS: BP 105/69
[2017-03-29 07:00] VITALS: BP 110/75
[2017-03-29] MEDS ORDERED: LEVOTHYROXINE 50 MCG TABLET PO SCH (07:00)
[2017-03-29] MEDS: GABAPENTIN 300 MG CAPSULE. PO SCH (09:44)
[2017-03-29] MEDS: buPROPion XL 150 MG TAB.ER.24H. PO SCH (09:44)
[2017-03-29] MEDS: CYCLOBENZAPRINE 10 MG TABLET. PO SCH (09:44)
[2017-03-29 11:00] VITALS: BP 127/83
[2017-03-29] MEDS: ENOXAPARIN 40 MG/0.4 ML SYRINGE. SQ SCH (11:00)
[2017-03-29] MEDS: BENZOCAINE/MENTHOL LOZENGE. PO PRN (11:39)
[2017-03-29] MEDS: guaiFENesin DM 200MG/20MG 10 ML SYRUP PO PRN (11:39)
[2017-03-29] MEDS ORDERED: NYSTATIN 100,000 UNIT/GM TOPICAL CREAM 15GM TUBE. TP PRN (23:00)
== END 2017-03-29 12:00 | disposition home or self-care (01) | DRG 393 ==
LOC: ER 16:11 → 5 SOUTH 18:23
PROVIDERS: ADMIT Internal Medicine; ATTEND Internal Medicine
PROC: 5A09357 Assistance with Respiratory Ventilation, Less than 24 Consecutive Hours, Continuous Positive Airway Pressure (ICD-10-PCS; principal; 2017-03-25)
PROC: 5A09357 Assistance with Respiratory Ventilation, Less than 24 Consecutive Hours, Continuous Positive Airway Pressure (ICD-10-PCS; 2017-03-25)
DX: K43.6 Other and unspecified ventral hernia with obstruction, without gangrene (principal); Q79.59 Other congenital malformations of abdominal wall; K31.84 Gastroparesis; E03.9 Hypothyroidism, unspecified; E66.9 Obesity, unspecified; Z68.37 Body mass index [BMI] 37.0-37.9, adult; E78.5 Hyperlipidemia, unspecified; G89.29 Other chronic pain; I10 Essential (primary) hypertension; K21.9 Gastro-esophageal reflux disease without esophagitis; M17.10 Unilateral primary osteoarthritis, unspecified knee; Z86.73 Personal history of transient ischemic attack (TIA), and cerebral infarction without residual deficits; Z96.649 Presence of unspecified artificial hip joint; Z96.659 Presence of unspecified artificial knee joint; F32.9 Major depressive disorder, single episode, unspecified; F41.9 Anxiety disorder, unspecified; G43.909 Migraine, unspecified, not intractable, without status migrainosus; Z90.49 Acquired absence of other specified parts of digestive tract; Z88.5 Allergy status to narcotic agent; Z88.8 Allergy status to other drugs, medicaments and biological substances; Z88.1 Allergy status to other antibiotic agents; Z91.040 Latex allergy status
CPT/HCPCS: 36415; 74020; 74177; 80053; 83690; 85025; J1200; J1650; J2405; J3010; J7030; Q9967; S0028; 97116; 97530; 99285-25

== ENCOUNTER → 2017-03-31 | Outpatient (CLI) | payer MEDICARE, OTHER ==
[2017-03-29 11:00] VITALS: BP 127/83
[~2017-03-31] MED LIST changes: +BUPIVACAINE MPF 0.75% 30 ML VIAL. ONE; -IBUP200T43 PO; +IBUP200T44 PO; +LIDOCAINE/PRILOCAINE TOPICAL CREAM 5GM TUBE. TP ONE; +NYST15CR2 TP; +cloNIDine PF 5,000 MCG/10 ML VIAL EP ONE; +fentaNYL PF VIAL 250 MCG/5 ML VIAL ONE
--- NOTE | 2017-03-31 20:05 | PAIN ---
DATE OF SERVICE: 03/31/2017 PROGRESS NOTE FOR PAIN CLINIC DIAGNOSES: 1. Cervical radiculopathy with post-cervical laminectomy syndrome. 2. Bilateral knee and hip joint pain with primary osteoarthritis. 3. Lumbar degenerative disk disease. HISTORY OF PRESENT ILLNESS: The patient is a 71-year-old female who returns for followup status post intrathecal pump therapy as well as bilateral knee injections in the past as well as hip injections. The patient recently had her right knee replaced and doing quite well with this, having some back pain today, but otherwise doing fairly well. The patient reports her pain overall is controlled very well with her intrathecal pump and spinal cord stimulator and still having some pain in the back and the right hip and side a 10 on a 10 scale at its worst and a 4 on average and a 4 at its least and is a 4 today. The patient reports it is sharp pain in the back on the right side, also some pain in the right knee postoperatively, but it is getting better over time. The patient reports a stabbing pain in the right side of the low back. The knee is on and off, the pain in the low back is only come up for the last day and has been more aggravating. Woke up from sleep, felt like she slept weird on her left side and reports that this happens about once every 6 months and it gets better with some heat application and stretching. The patient reports no new motor or sensory deficits. Reports her pump is working well. Again, no side effects with approximately overall about 80% improvement. The patient reports no new motor or sensory deficits, no new bowel or bladder incontinence, no other complaints. Pain in her back right now is worse with activity, walking, standing, but better with lying down and she has not been having difficulty sleeping with it. PHYSICAL EXAMINATION: VITAL SIGNS: The patient's blood pressure 137/81, pulse 84, respirations 18, temperature is 98.2 degrees Fahrenheit. Height is 5 feet 2 inches, weight is 200 pounds. GENERAL: The patient is awake, alert, oriented, appropriate, very pleasant demeanor. HEENT: Head shows normocephalic, atraumatic. Extraocular movements are intact and symmetrical. Oral cavity shows mucous membranes moist and pink. Dentition is intact. NECK: Shows anterior throat supple without palpable lymphadenopathy noted. Swallow reflex is symmetrical. CHEST: Shows normal with inspection. Breath sounds are clear to auscultation bilaterally. HEART: Shows S1, S2 clear. ABDOMEN: Soft, nontender, nondistended. No palpable organomegaly. No rebound or guarding demonstrated. BACK: Shows spine grossly in the midline. Lumbar paraspinous muscle shows some moderate tenderness with palpation, but only diffusely in the upper, middle and lower distributions. Neck shows posterior cervical musculature with some moderate tenderness with palpation, but without radiation, without atrophy, hypertrophy. The patient has good rotational motion of the cervical spine without difficulty including extension, flexion, right and left lateral rotation as well as with lumbar spine. Some minor decrease in rotation to the right as she is having some muscle spasticity there and the muscles are very firm and tender over the lateral aspect of the posterior flank and superior to the iliac crest, but only diffusely tender without specific trigger points or radiation. EXTREMITIES: The patient's extremities show upper extremity deep tendon reflexes 1+ in the biceps, triceps tendons. Lower extremities show 1+ in the left patellar and zero over the right patella. A well-healed surgical scar is noted. Motor exam is intact; however, with dorsiflexion, extension, quadriceps and hamstring flexion rate approximately 4 on a scale of 5, but equal and symmetrical. Peripheral pulses are 2+ radial and 1+ posterior tibial and dorsalis pedis pulses. No peripheral edema is noted bilaterally. Options were discussed with the patient. The patient's old chart was reviewed as her current medication regimen and updated. Current review of systems updated today as well and we will refill the patient's intrathecal pump, which is easily palpable in the left lower quadrant of her abdomen without tenderness on palpation. Risks were discussed including but not limited to bleeding, infection, possibility of extravasation of the medication and possible resuscitative measures as necessary as well as mechanical pump failure and poor results regarding pain control. The patient understands and wished to proceed. The patient will return to the clinic for pump refill prior to 05/29/2017 or sooner as necessary. The patient was encouraged to increase her stretching and strengthening as well as heat application and ice application of the low back on the right side to decrease the pain there as well and increase activity as tolerated and as recommended with her rehabilitation therapy for her right knee replacement. DIAGNOSES: 1. Cervical post-laminectomy syndrome with cervical radiculopathy. 2. Primary osteoarthritis, bilateral knees and hip joints. 3. Lumbar degenerative disk disease. PROCEDURE: Intrathecal pump refill and reprogramming also PTM reprogramming under sterile prep and drape using local topical anesthetic with 22-gauge noncutting Osmosis Skincaretronic needle with pump entered without difficulty. A 2 mL removed from the old medication discarded. A 40 mL of a new medication containing bupivacaine, fentanyl and clonidine was replaced. Needle was withdrawn. Sterile bandage applied. Pump was then reprogrammed as to volume setting as well as PTM settings. The patient tolerated procedure well, had no complications. CHITRA EPPERSON MD DR: TRAV/benito JOB#: [id number] / [id number]
== END | disposition home or self-care (01) ==
LOC: PNCL 11:11
PROVIDERS: ATTEND Anesthesiology
DX: M51.36 Other intervertebral disc degeneration, lumbar region (principal); M17.0 Bilateral primary osteoarthritis of knee; M16.0 Bilateral primary osteoarthritis of hip; M96.1 Postlaminectomy syndrome, not elsewhere classified; M54.12 Radiculopathy, cervical region; E78.00 Pure hypercholesterolemia, unspecified; J44.9 Chronic obstructive pulmonary disease, unspecified; Z86.69 Personal history of other diseases of the nervous system and sense organs; Z86.73 Personal history of transient ischemic attack (TIA), and cerebral infarction without residual deficits; Z90.49 Acquired absence of other specified parts of digestive tract; Z90.710 Acquired absence of both cervix and uterus; Z87.440 Personal history of urinary (tract) infections; Z87.442 Personal history of urinary calculi; Z88.1 Allergy status to other antibiotic agents; Z91.040 Latex allergy status; Z88.8 Allergy status to other drugs, medicaments and biological substances; Z91.048 Other nonmedicinal substance allergy status
CPT/HCPCS: 62370; J0735; J3010; J3490; 95991

== ENCOUNTER → 2017-05-29 | Outpatient (CLI) | payer MEDICARE, OTHER ==
[~2017-05-29] MED LIST changes: -ACET500T68 PO; -ALPR0.5T10 PO; -ASPI-482 PO; -ASPI325T8 PO; -BISA10SU55 RC; +BUPIVACAINE MPF 0.75% 30 ML VIAL.; -BUPIVACAINE MPF 0.75% 30 ML VIAL. ONE; -BUPR100T6 PO; -BUTA-14 PO; -BUTA1CAP29 PO; -CHOL2000 PO; -CYCL10TA2 PO; -DICY10CA3 PO; -ESTR1TAB15 PO; -FENT1PAT17 TD; -FLUT16SP NS; -GABA-585 PO; -GUAI600T47 PO; -HYDR-2678 PO; -HYDR-2758 PO; -IBUP-1060 PO; -IBUP200T44 PO; -LEVO25TA4 PO; -LEVO50TA5 PO; +LIDOCAINE/PRILOCAINE TOPICAL CREAM 5GM TUBE. TP; -LIDOCAINE/PRILOCAINE TOPICAL CREAM 5GM TUBE. TP ONE; -MELO7.5T29 PO; -NA P133E2 RC; -NYST15CR2 TP; -OMEP40CA5 PO; -ONDA8TAB12 PO; -PANT40TA3 PO; -RISP0.5T24 PO; -SENN1TAB21 PO; -SIMV20TA PO; -TRAM50TA PO; -WARF-78 PO; -ZOLP5TAB PO; -[UNRECOGNIZED DRUG - CODE]; -[UNRECOGNIZED DRUG - CODE]; -[UNRECOGNIZED DRUG - CODE] IJ; -[UNRECOGNIZED DRUG - OTHER] PO; +cloNIDine PF 5,000 MCG/10 ML VIAL EP; -cloNIDine PF 5,000 MCG/10 ML VIAL EP ONE; +fentaNYL PF VIAL 250 MCG/5 ML VIAL; -fentaNYL PF VIAL 250 MCG/5 ML VIAL ONE; -gi cocktail PO
== END | disposition home or self-care (01) ==
LOC: PNCL 11:18
DX: M51.36 Other intervertebral disc degeneration, lumbar region (principal); M96.1 Postlaminectomy syndrome, not elsewhere classified; M17.0 Bilateral primary osteoarthritis of knee; J44.9 Chronic obstructive pulmonary disease, unspecified; E03.9 Hypothyroidism, unspecified; F41.9 Anxiety disorder, unspecified; F32.9 Major depressive disorder, single episode, unspecified; Z96.651 Presence of right artificial knee joint; Z86.69 Personal history of other diseases of the nervous system and sense organs; Z86.73 Personal history of transient ischemic attack (TIA), and cerebral infarction without residual deficits; Z98.890 Other specified postprocedural states; Z90.49 Acquired absence of other specified parts of digestive tract; Z87.442 Personal history of urinary calculi; Z87.39 Personal history of other diseases of the musculoskeletal system and connective tissue; Z87.440 Personal history of urinary (tract) infections; Z86.39 Personal history of other endocrine, nutritional and metabolic disease; Z88.1 Allergy status to other antibiotic agents; Z91.040 Latex allergy status; Z88.8 Allergy status to other drugs, medicaments and biological substances; Z91.048 Other nonmedicinal substance allergy status
CPT/HCPCS: 62370; 95991; J0735; J3010; J3490

== ENCOUNTER → 2017-07-27 | Outpatient (CLI) | payer MEDICARE, OTHER | END | disposition home or self-care (01) | LOC: PNCL 11:41 | DX: Z45.1 Encounter for adjustment and management of infusion pump (principal); M54.12 Radiculopathy, cervical region; M96.1 Postlaminectomy syndrome, not elsewhere classified; M17.0 Bilateral primary osteoarthritis of knee; M51.36 Other intervertebral disc degeneration, lumbar region; E78.00 Pure hypercholesterolemia, unspecified; J44.9 Chronic obstructive pulmonary disease, unspecified; M19.90 Unspecified osteoarthritis, unspecified site; G47.33 Obstructive sleep apnea (adult) (pediatric); E03.9 Hypothyroidism, unspecified; F32.9 Major depressive disorder, single episode, unspecified; F41.9 Anxiety disorder, unspecified; Z90.49 Acquired absence of other specified parts of digestive tract; Z98.890 Other specified postprocedural states; Z86.73 Personal history of transient ischemic attack (TIA), and cerebral infarction without residual deficits; Z90.710 Acquired absence of both cervix and uterus; Z79.899 Other long term (current) drug therapy; Z91.040 Latex allergy status; Z88.8 Allergy status to other drugs, medicaments and biological substances; Z79.82 Long term (current) use of aspirin; Z79.891 Long term (current) use of opiate analgesic | CPT/HCPCS: 95991; J0735; J3010; J3490 ==

== ENCOUNTER → 2017-09-01 | Outpatient (CLI) | payer MEDICARE, OTHER | END | disposition home or self-care (01) | LOC: KCIC CT 08:53 | DX: R41.3 Other amnesia (principal); E78.00 Pure hypercholesterolemia, unspecified; E78.5 Hyperlipidemia, unspecified; I10 Essential (primary) hypertension; E03.9 Hypothyroidism, unspecified; J44.9 Chronic obstructive pulmonary disease, unspecified | CPT/HCPCS: 70450 ==

== ENCOUNTER → 2017-09-08 | Outpatient (CLI) | payer MEDICARE, OTHER ==
[2017-09-08 14:59] LABS: THYROID STIM HORMONE (TSH) 1.385 uIU/mL (0.358-3.74)
[2017-09-08 15:44] LABS: SEDIMENTATION RATE 93 (0-25); VITAMIN-B12 270 pg/mL (247-911)
[2017-09-08 15:57] LABS: FOLATE > 20.00 ng/ml (3.2-20.0)
== END | disposition home or self-care (01) ==
LOC: LAB 13:58
DX: R41.3 Other amnesia (principal)
CPT/HCPCS: 36415; 82607; 82746; 84443; 85651

== ENCOUNTER → 2017-09-21 | Outpatient (CLI) | payer MEDICARE, OTHER ==
[~2017-09-21] MED LIST changes: -BUPIVACAINE MPF 0.75% 30 ML VIAL.; -cloNIDine PF 5,000 MCG/10 ML VIAL EP; -fentaNYL PF VIAL 250 MCG/5 ML VIAL
== END ==
LOC: PNCL 12:40
DX: M51.36 Other intervertebral disc degeneration, lumbar region (principal); M54.12 Radiculopathy, cervical region; M96.1 Postlaminectomy syndrome, not elsewhere classified; M17.0 Bilateral primary osteoarthritis of knee
CPT/HCPCS: 95991

== ENCOUNTER → 2017-10-16 | Outpatient (CLI) | payer MEDICARE, OTHER | END | disposition home or self-care (01) | LOC: RAD 14:24 | DX: Z01.818 Encounter for other preprocedural examination (principal); M17.12 Unilateral primary osteoarthritis, left knee; I10 Essential (primary) hypertension | CPT/HCPCS: 77073 ==

== ENCOUNTER → 2017-10-17 | Outpatient (CLI) | payer MEDICARE, OTHER ==
[2017-10-17 16:23] LABS: SEDIMENTATION RATE 24 (0-25)
== END | disposition home or self-care (01) ==
LOC: LAB 14:50
DX: Z47.1 Aftercare following joint replacement surgery (principal); Z96.651 Presence of right artificial knee joint
CPT/HCPCS: 36415; 85651; 86140

== ENCOUNTER → 2017-10-30 | Outpatient (CLI) | payer MEDICARE, OTHER ==
[2017-10-30 14:11] LABS: ADD MAN DIFF? NO
[2017-10-30 14:16] LABS: BASO # 0.1 x10^3/uL (0.0-0.2); BASO % 1 % (0-3); EOS # 0.2 x10^3/uL (0.0-0.7); EOS % 3 % (0-3); HEMATOCRIT 37.7 % (36.0-47.0); HEMOGLOBIN 12.2 g/dL (12.0-15.5); LYMPH # 2.2 x10^3/uL (1.0-4.8); LYMPH % 34 % (24-48); MEAN CORPUSCULAR HEMOGLOBIN 27 pg (25-35); MEAN CORPUSCULAR HGB CONC 32 g/dL (31-37); MEAN CORPUSCULAR VOLUME 84 fL (79-100); MONO # 0.8 x10^3/uL (0.0-1.1); MONO % 13 % (0-9); NEUT # 3.2 x10^3uL (1.8-7.7); NEUT % 50 % (31-73); PLATELET COUNT 386 x10^3/uL (140-400); RED CELL DISTRIBUTION WIDTH 18.1 % (11.5-14.5); WHITE BLOOD COUNT 6.5 x10^3/uL (4.0-11.0)
[2017-10-30 14:23] LABS: PARTIAL THROMBOPLASTIN TIME 24 SEC (24-38); PROTHROMBIN TIME PATIENT 12.4 SEC (11.7-14.0)
[2017-10-30 14:30] LABS: ALBUMIN 3.4 g/dL (3.4-5.0); ANION GAP 9 (6-14); BLOOD UREA NITROGEN 15 mg/dL (7-20); CALCIUM 9.3 mg/dL (8.5-10.1); CARBON DIOXIDE 26 mmol/L (21-32); CHLORIDE 105 mmol/L (98-107); CREATININE 1.2 mg/dL (0.6-1.0); GFR 44.2; GLUCOSE 114 mg/dL (70-99); POTASSIUM 4.3 mmol/L (3.5-5.1); SODIUM 140 mmol/L (136-145)
[2017-10-30 15:32] LABS: BILIRUBIN,URINE NEGATIVE (NEG); CLARITY,URINE CLEAR; COLOR,URINE YELLOW; GLUCOSE,URINE NEGATIVE (NEG); NITRITE,URINE NEGATIVE (NEG); PH,URINE 7.5; PROTEIN,URINE NEGATIVE (NEG-TRACE)
[2017-10-30 15:33] LABS: SEDIMENTATION RATE 30 (0-25)
[2017-10-30 15:38] LABS: BACTERIA,URINE FEW /HPF (0-FEW); RBC,URINE RARE /HPF (0-2); SQUAMOUS EPITHELIAL CELL,UR MOD /LPF
[2017-10-31 01:12] LABS: MRSA BY PCR Negative (Negative)
== END | disposition home or self-care (01) ==
LOC: SURGPAT 13:33
DX: Z01.818 Encounter for other preprocedural examination (principal); I51.7 Cardiomegaly; I10 Essential (primary) hypertension; E78.5 Hyperlipidemia, unspecified; E78.00 Pure hypercholesterolemia, unspecified; E03.9 Hypothyroidism, unspecified; J44.9 Chronic obstructive pulmonary disease, unspecified; K21.9 Gastro-esophageal reflux disease without esophagitis
CPT/HCPCS: 36415; 71046; 80048; 81001; 82040; 85025; 85610; 85651; 85730; 87086; 87641; 93005

== ENCOUNTER → 2017-11-17 | Outpatient (CLI) | payer MEDICARE, OTHER ==
[~2017-11-17] MED LIST changes: +BUPIVACAINE MPF 0.75% 30 ML VIAL.; -LIDOCAINE/PRILOCAINE TOPICAL CREAM 5GM TUBE. TP; +cloNIDine PF 5,000 MCG/10 ML VIAL EP; +fentaNYL PF VIAL 250 MCG/5 ML VIAL
== END | disposition home or self-care (01) ==
LOC: PNCL 11:06
DX: M51.36 Other intervertebral disc degeneration, lumbar region (principal); M96.1 Postlaminectomy syndrome, not elsewhere classified; M17.0 Bilateral primary osteoarthritis of knee; Z88.5 Allergy status to narcotic agent; Z88.1 Allergy status to other antibiotic agents; Z88.8 Allergy status to other drugs, medicaments and biological substances; Z91.040 Latex allergy status; Z86.73 Personal history of transient ischemic attack (TIA), and cerebral infarction without residual deficits; Z98.890 Other specified postprocedural states; E78.00 Pure hypercholesterolemia, unspecified; J44.9 Chronic obstructive pulmonary disease, unspecified; G47.30 Sleep apnea, unspecified; Z90.49 Acquired absence of other specified parts of digestive tract; E66.9 Obesity, unspecified; Z90.710 Acquired absence of both cervix and uterus; K21.9 Gastro-esophageal reflux disease without esophagitis; Z90.79 Acquired absence of other genital organ(s); Z90.721 Acquired absence of ovaries, unilateral; Z87.442 Personal history of urinary calculi; Z87.440 Personal history of urinary (tract) infections; M19.90 Unspecified osteoarthritis, unspecified site; Z96.651 Presence of right artificial knee joint; Z96.698 Presence of other orthopedic joint implants; F41.9 Anxiety disorder, unspecified; F32.9 Major depressive disorder, single episode, unspecified; Z82.49 Family history of ischemic heart disease and other diseases of the circulatory system; E89.0 Postprocedural hypothyroidism
CPT/HCPCS: 62370; 95991; J0735; J3010; J3490

== ENCOUNTER 2017-12-22 19:01 | Inpatient (IN) | payer MEDICARE, OTHER ==
[~2017-12-22] VITALS: Ht 154.9 cm; Wt 88.0 kg
[~2017-12-22 19:01] MED LIST changes: +ACET500T68 PO; +ALPR0.5T10 PO; +ASPI-482 PO; +ASPI325T8 PO; +BISA10SU55 RC; -BUPIVACAINE MPF 0.75% 30 ML VIAL.; +BUPR100T6 PO; +BUTA-14 PO; +BUTA1CAP29 PO; +CHOL2000 PO; +COLE1TAB2 PO; +CYCL10TA2 PO; +DICY10CA3 PO; +DOMPERIDONE PO; +ESTR1TAB15 PO; +FENT1PAT17 TD; +FLUC150T PO; +FLUT16SP NS; +GABA-585 PO; +GUAI600T47 PO; +HYDR-2678 PO; +HYDR-2758 PO; +IBUP-1060 PO; +IBUP200T44 PO; +LEVO25TA4 PO; +LEVO50TA5 PO; +MELA3TAB2 PO; +MELO15TA6 PO; +MELO7.5T29 PO; +NA P133E2 RC; +NYST15CR2 TP; +OMEP40CA5 PO; +ONDA8TAB12 PO; +PANT40TA3 PO; +RISP0.5T24 PO; +SENN1TAB21 PO; +SIMV20TA PO; +TRAM50TA PO; +WARF-78 PO; +ZOLP5TAB PO; +[UNRECOGNIZED DRUG - CODE]; +[UNRECOGNIZED DRUG - CODE]; +[UNRECOGNIZED DRUG - CODE] IJ; +[UNRECOGNIZED DRUG - OTHER] PO; -cloNIDine PF 5,000 MCG/10 ML VIAL EP; -fentaNYL PF VIAL 250 MCG/5 ML VIAL; +gi cocktail PO
[2017-12-22] MEDS ORDERED: IV NORMAL SALINE 1000ML BAG 1,000 ML IV ONE ×2 (19:15→22:15)
--- NOTE | 2017-12-22 19:19 | PHYS DOC ---
Past Medical History Past Medical History: Anxiety, Arthritis, Depression, Diverticulitis, GERD, Hypothyroid, Migraines, TIA, Other Additional Past Medical Histor: CHRONIC PAIN,GASTROPARESIS,pre DM,SBO,PAIN PUMP Past Surgical History: Cholecystectomy, , Knee Replacement, Tonsillectomy Additional Past Surgical Histo: HERNIA,BUNIONECTOMY BILAT FEET,FUNDOLICATION, SPINAL CORD STIMULATOR, Alcohol Use: Rarely Drug Use: None Adult General HPI HPI Patient is a 72 year old female with history of anxiety, depression, arthritis , gastroparesis, small bowel obstruction, abdominal surgeries, who presents today complaining of mild epigastric abdominal pain with nausea and vomiting since yesterday evening. Patient states it does not feel like her gastroparesis. Denies any hematemesis, denies any melena, denies any chance she is constipated, she states she had a normal bowel movement today. Denies any chest pain or shortness of breath. PCP Dr. Casper bennett Review of Systems Review of Systems Constitutional: Denies fever or chills [] Eyes: Denies change in visual acuity, redness, or eye pain [] HENT: Denies nasal congestion or sore throat [] Respiratory: Denies cough or shortness of breath [] Cardiovascular: No additional information not addressed in HPI [] GI: Reports epigastric abdominal pain with nausea and vomiting, denies bloody stools or diarrhea [] : Denies dysuria or hematuria [] Musculoskeletal: Denies back pain or joint pain [] Integument: Denies rash or skin lesions [] Neurologic: Denies headache, focal weakness or sensory changes [] All other systems were reviewed and found to be within normal limits, except as documented in this note. Current Medications Current Medications Current Medications Medications (Trade) Dose Ordered Sig/Suki Start Time Stop Time Status Last Admin Dose Admin Fentanyl Citrate (Fentanyl 2ml Vial) 50 mcg PRN Q2HR PRN 12/22/17 22:15 12/23/17 22:14 Info (CONTRAST GIVEN -- Rx MONITORING) 1 each PRN DAILY PRN 12/22/17 21:45 12/24/17 21:44 Iohexol (Omnipaque 300 Mg/ml) 100 ml 1X ONCE 12/22/17 21:45 12/22/17 21:46 DC Ondansetron HCl (Zofran) 4 mg PRN Q8HRS PRN 12/22/17 22:15 12/23/17 22:14 Pantoprazole Sodium (PROTONIX VIAL for IV PUSH) 40 mg DAILY 12/23/17 09:00 Sodium Chloride 1,000 ml @ 125 mls/hr 1X ONCE 12/22/17 22:15 12/23/17 06:14 Allergies Allergies Allergies Coded Allergies Type Severity Reaction Last Updated Verified prochlorperazine edisylate Allergy Severe Anaphylaxis 11/20/17 Yes prochlorperazine maleate Allergy Severe Anaphylaxis 11/20/17 Yes adhesive Allergy Intermediate 11/20/17 Yes clindamycin Allergy Intermediate extreme heartburn 11/20/17 Yes latex Allergy Intermediate 11/20/17 Yes ciprofloxacin Adverse Reaction Intermediate hallucinations 11/21/17 Yes ciprofloxacin HCl Adverse Reaction Intermediate hallucinations 11/21/17 Yes oxycodone Adverse Reaction Intermediate 11/21/17 Yes Physical Exam Physical Exam Constitutional: Well developed, well nourished, no acute distress, non-toxic appearance. [] HENT: Normocephalic, atraumatic, bilateral external ears normal, oropharynx moist, no oral exudates, nose normal. [] Eyes: PERRLA, EOMI, conjunctiva normal, no discharge. [] Neck: Normal range of motion, no tenderness, supple, no stridor. [] Cardiovascular:Heart rate regular rhythm, no murmur [] Lungs & Thorax: Bilateral breath sounds clear to auscultation [] Abdomen: Rounded distended abdomen. Bowel sounds normal, soft, slight tenderness at the epigastric region, no right lower quadrant tenderness, no right upper quadrant tenderness, no masses, no pulsatile masses. [] Skin: Warm, dry, no erythema, no rash. [] Back: No tenderness, no CVA tenderness. [] Extremities: No tenderness, no cyanosis, no clubbing, ROM intact, no edema. [] Neurologic: Alert and oriented X 3, normal motor function, normal sensory function, no focal deficits noted. [] Psychologic: Affect normal, judgement normal, mood normal. [] Current Patient Data Vital Signs Vital Signs Date Time Temp Pulse Resp B/P (MAP) Pulse Ox O2 Delivery O2 Flow Rate FiO2 12/22/17 20:02 17 12/22/17 19:10 99.8 87 125/72 (89) 93 Nasal Cannula 2.0 99.8 Lab Values Laboratory Tests Test 12/22/17 19:22 12/22/17 21:18 White Blood Count 7.5 x10^3/uL (4.0-11.0) Red Blood Count 3.90 x10^6/uL (3.50-5.40) Hemoglobin 11.1 g/dL (12.0-15.5) L Hematocrit 33.6 % (36.0-47.0) L Mean Corpuscular Volume 86 fL (79-100) Mean Corpuscular Hemoglobin 29 pg (25-35) Mean Corpuscular Hemoglobin Concent 33 g/dL (31-37) Red Cell Distribution Width 17.7 % (11.5-14.5) H Platelet Count 478 x10^3/uL (140-400) H Neutrophils (%) (Auto) 53 % (31-73) Lymphocytes (%) (Auto) 31 % (24-48) Monocytes (%) (Auto) 14 % (0-9) H Eosinophils (%) (Auto) 1 % (0-3) Basophils (%) (Auto) 1 % (0-3) Neutrophils # (Auto) 4.0 x10^3uL (1.8-7.7) Lymphocytes # (Auto) 2.4 x10^3/uL (1.0-4.8) Monocytes # (Auto) 1.0 x10^3/uL (0.0-1.1) Eosinophils # (Auto) 0.0 x10^3/uL (0.0-0.7) Basophils # (Auto) 0.1 x10^3/uL (0.0-0.2) Sodium Level 135 mmol/L (136-145) L Potassium Level 3.5 mmol/L (3.5-5.1) Chloride Level 105 mmol/L (98-107) Carbon Dioxide Level 26 mmol/L (21-32) Anion Gap 4 (6-14) L Blood Urea Nitrogen 11 mg/dL (7-20) Creatinine 0.9 mg/dL (0.6-1.0) Estimated GFR (Cockcroft-Gault) 61.5 BUN/Creatinine Ratio 12 (6-20) Glucose Level 129 mg/dL (70-99) H Calcium Level 9.1 mg/dL (8.5-10.1) Total Bilirubin 0.4 mg/dL (0.2-1.0) Aspartate Amino Transferase (AST) 29 U/L (15-37) Alanine Aminotransferase (ALT) 27 U/L (14-59) Alkaline Phosphatase 119 U/L (46-116) H Troponin I Quantitative < 0.017 ng/mL (0.000-0.055) Total Protein 7.1 g/dL (6.4-8.2) Albumin 3.0 g/dL (3.4-5.0) L Albumin/Globulin Ratio 0.7 (1.0-1.7) L Lipase 57 U/L (73-393) L Ethyl Alcohol Level < 10 mg/dL (0-10) Urine Collection Type Unknown Urine Color Yellow Urine Clarity Clear Urine pH 7.0 Urine Specific Hustler 1.010 Urine Protein Negative mg/dL (NEG-TRACE) Urine Glucose (UA) Negative mg/dL (NEG) Urine Ketones (Stick) Negative mg/dL (NEG) Urine Blood Negative (NEG) Urine Nitrite Negative (NEG) Urine Bilirubin Negative (NEG) Urine Urobilinogen Dipstick 1.0 mg/dL (0.2 mg/dL) Urine Leukocyte Esterase Trace (NEG) Urine RBC Occ /HPF (0-2) Urine WBC 5-10 /HPF (0-4) Urine Squamous Epithelial Cells Mod /LPF Urine Bacteria 0 /HPF (0-FEW) Urine Mucus Slight /LPF Urine Opiates Screen Pos (NEG) Urine Methadone Screen Neg (NEG) Urine Barbiturates Neg (NEG) Urine Phencyclidine Screen Neg (NEG) Urine Amphetamine/Methamphetamine Neg (NEG) Urine Benzodiazepines Screen Neg (NEG) Urine Cocaine Screen Neg (NEG) Urine Cannabinoids Screen Neg (NEG) Urine Ethyl Alcohol Neg (NEG) Laboratory Tests 12/22/17 19:22 Laboratory Tests 12/22/17 19:22 EKG EKG 20:[address] Bernard sinus rhythm heart rate 78 no STEMI[] Radiology/Procedures Radiology/Procedures []PROCEDURE: ACUTE ABDOMEN SERIES Indication: Low abdominal pain and shortness of breath for one day TECHNIQUE: Upright chest and 3 views of the abdomen and pelvis COMPARISON: None FINDINGS: Heart is top normal in size. Lungs are clear. No pneumothorax or pleural effusion. Stimulator leads are seen in the level of T5 and T6 vertebral bodies. No evidence of pneumoperitoneum. Dilated loops of small bowel are seen. Visualized bones are within normal limits. IMPRESSION: Distended loops of small bowel. Findings may be secondary to ileus or evolving small bowel obstruction. Follow-up KUB in 6 hours recommended. Electronically signed by: Luisito Morales DO (12/22/2017 9:49 PM) [facility] DICTATED and SIGNED BY: LUISITO MORALES DO DATE: 12/22/172146 Course & Med Decision Making Course & Med Decision Making Pertinent Labs and Imaging studies reviewed. (See chart for details) This is a 72-year-old female patient presented to the ED today with epigastric abdominal pain with nausea and vomiting. Patient's labs are negative for any acute findings. Acute abdominal series was noted for an illeus or small bowel obstruction. CT abdomen and pelvic was noted for diffusely distended loops of small bowel is with fluid nonspecific but may represent developing small bowel obstruction. KUB recommended in 6 hours. Large amount of stool also noted in the colon. Patient's nausea and vomiting as were controlled. She does not need an NG right now. She was made NPO. 22:08 Dr. Rodriguez accepted patient for admission Routine consult for general surgery Dragon Disclaimer Dragon Disclaimer This electronic medical record was generated, in whole or in part, using a voice recognition dictation system. Departure Departure Impression: Primary Impression: Adynamic ileus Additional Impressions: Constipation Small bowel obstruction Disposition: ADMITTED INPATIENT Condition: STABLE Referrals: DIMA BARAJAS MD (PCP) Problem Qualifiers Additional Impressions: Constipation Constipation type: unspecified constipation type Qualified Codes: K59.00 - Constipation, unspecified ABDIEL FLOYD CARDIO CLINICIAN Dec 22, 2017 19:19
[2017-12-22] MEDS ORDERED: fentaNYL PF VIAL 100 MCG/2 ML VIAL IV ONE (19:30)
[2017-12-22] MEDS ORDERED: PANTOPRAZOLE IV PUSH 40 MG VIAL. IVP ONE (19:30)
[2017-12-22] MEDS ORDERED: ONDANSETRON PF 4 MG/2 ML VIAL. IV ONE (19:30)
[2017-12-22 19:37] LABS: BASO # 0.1 x10^3/uL (0.0-0.2); BASO % 1 % (0-3); EOS % 1 % (0-3); HEMATOCRIT 33.6 % (36.0-47.0); HEMOGLOBIN 11.1 g/dL (12.0-15.5); LYMPH # 2.4 x10^3/uL (1.0-4.8); LYMPH % 31 % (24-48); MEAN CORPUSCULAR HEMOGLOBIN 29 pg (25-35); MEAN CORPUSCULAR HGB CONC 33 g/dL (31-37); MEAN CORPUSCULAR VOLUME 86 fL (79-100); MONO % 14 % (0-9); NEUT % 53 % (31-73); PLATELET COUNT 478 x10^3/uL (140-400); RED CELL DISTRIBUTION WIDTH 17.7 % (11.5-14.5); WHITE BLOOD COUNT 7.5 x10^3/uL (4.0-11.0)
[2017-12-22 19:48] LABS: CALCIUM 9.1 mg/dL (8.5-10.1); CREATININE 0.9 mg/dL (0.6-1.0); GFR 61.5; POTASSIUM 3.5 mmol/L (3.5-5.1)
[2017-12-22 19:56] LABS: ALBUMIN/GLOBULIN RATIO 0.7 (1.0-1.7); TOTAL BILIRUBIN 0.4 mg/dL (0.2-1.0); TOTAL PROTEIN 7.1 g/dL (6.4-8.2)
[2017-12-22 21:38] LABS: BILIRUBIN,URINE NEGATIVE (NEG); CLARITY,URINE CLEAR; COLOR,URINE YELLOW; NITRITE,URINE NEGATIVE (NEG); PROTEIN,URINE NEGATIVE (NEG-TRACE)
[2017-12-22 21:44] LABS: BARBITURATES NEG (NEG); BENZODIAZEPINES NEG (NEG); CANNABINOIDS NEG (NEG); COCAINE NEG (NEG); METHADONE NEG (NEG); OPIATES POS (NEG); PHENCYCLIDINE NEG (NEG)
[2017-12-22] MEDS ORDERED: CONTRAST GIVEN. MC PRN (21:45)
[2017-12-22] MEDS ORDERED: IOHEXOL 300 MG/ML 100ML VIAL. IV ONE (21:45)
[2017-12-22 21:46] LABS: AMPHETAMINE/METHAMPHETAMINE NEG (NEG)
[2017-12-22 21:48] LABS: BACTERIA,URINE 0 /HPF (0-FEW); RBC,URINE OCC /HPF (0-2); SQUAMOUS EPITHELIAL CELL,UR MOD /LPF
--- NOTE | 2017-12-22 21:52 | RAD ---
Indication: Low abdominal pain and shortness of breath for one day TECHNIQUE: Upright chest and 3 views of the abdomen and pelvis COMPARISON: None FINDINGS: Heart is top normal in size. Lungs are clear. No pneumothorax or pleural effusion. Stimulator leads are seen in the level of T5 and T6 vertebral bodies. No evidence of pneumoperitoneum. Dilated loops of small bowel are seen. Visualized bones are within normal limits. IMPRESSION: Distended loops of small bowel. Findings may be secondary to ileus or evolving small bowel obstruction. Follow-up KUB in 6 hours recommended. Electronically signed by: Luisito Morales DO (12/22/2017 9:49 PM) [facility]
--- NOTE | 2017-12-22 22:09 | RAD ---
PQRS Compliance statement: One or more of the following individualized dose reduction techniques were utilized for this examination: 1. Automated exposure control. 2. Adjustment of the mA and/or kV according to patient size. 3. Use of iterative reconstruction technique. Indication:ABD PAIN, HX HYSTERECTOMY, NURYS, EXPLORAT SX, HERNIA TECHNIQUE: CT abdomen and pelvis with IV contrast with multiplanar reformats. COMPARISON: 03/25/2017 FINDINGS: Heart is normal in size. No pericardial or pleural effusion. Clear lung bases. Liver, spleen, pancreas, adrenals within normal limits. Status post cholecystectomy. No hydronephrosis. Left extrarenal pelvis noted. Punctate nonobstructing right renal stone. No enlarged retroperitoneal or pelvic adenopathy. Large amount of stool is seen in the colon. Diffusely distended fluid-filled small bowel loops are seen. Urinary bladder within normal limits. Status post hysterectomy. No free pelvic fluid or ascites. No pneumoperitoneum. Left anterolateral abdominal wall stimulator device is seen with its lead visualized in the spinal canal. Status post posterior fusion at L4-L5. No suspicious bony lesion. IMPRESSION: 1. Diffusely distended loops of small bowel with fluid, nonspecific but may represent developing small bowel obstruction. Follow-up KUB recommended. 2. Punctate nonobstructing right renal stone. 3. Large amount of colonic stool burden, patient may be constipated. Electronically signed by: Luisito Morales DO (12/22/2017 10:06 PM) [facility]
[2017-12-22] MEDS ORDERED: ONDANSETRON PF 4 MG/2 ML VIAL. IV PRN (22:15)
[2017-12-22 23:25] VITALS: BP 148/80
[2017-12-23] MEDS ORDERED: [UNRECOGNIZED DRUG - OTHER] TP (00:51)
[2017-12-23] MEDS ORDERED: MULT1TAB52 PO (00:51)
[2017-12-23] MEDS ORDERED: ALPR0.5T PO (00:51)
[2017-12-23] MEDS ORDERED: NYST15CR TP (00:51)
[2017-12-23] MEDS ORDERED: SENN1TAB21 PO (00:51)
[2017-12-23] MEDS ORDERED: CHOL10003 PO (00:51)
[2017-12-23] MEDS ORDERED: lidoderm (00:51)
[2017-12-23] MEDS ORDERED: domperidone PO (00:51)
[2017-12-23] MEDS ORDERED: CALC200T3 PO (00:51)
[2017-12-23] MEDS ORDERED: ENOX40DI SQ (00:51)
[2017-12-23] MEDS ORDERED: PANT20TA2 PO (00:51)
[2017-12-23] MEDS ORDERED: OXYB5TAB7 PO (00:51)
[2017-12-23] MEDS ORDERED: CYCL10TA2 PO (00:51)
[2017-12-23] MEDS ORDERED: dulcolax PR (00:51)
[2017-12-23] MEDS ORDERED: lidoderm 5% TOP (00:51)
[2017-12-23] MEDS: fentaNYL PF VIAL 100 MCG/2 ML VIAL IV PRN ×5 (02:21→21:07)
[2017-12-23 03:00] VITALS: BP 110/62
[2017-12-23 05:19] LABS: BASO % 1 % (0-3); EOS # 0.1 x10^3/uL (0.0-0.7); EOS % 2 % (0-3); HEMATOCRIT 31.6 % (36.0-47.0); HEMOGLOBIN 10.2 g/dL (12.0-15.5); LYMPH # 2.5 x10^3/uL (1.0-4.8); LYMPH % 37 % (24-48); MEAN CORPUSCULAR HEMOGLOBIN 28 pg (25-35); MEAN CORPUSCULAR HGB CONC 32 g/dL (31-37); MEAN CORPUSCULAR VOLUME 87 fL (79-100); MONO % 15 % (0-9); NEUT % 45 % (31-73); PLATELET COUNT 419 x10^3/uL (140-400); RED BLOOD COUNT 3.65 x10^6/uL (3.50-5.40); RED CELL DISTRIBUTION WIDTH 17.4 % (11.5-14.5); WHITE BLOOD COUNT 6.7 x10^3/uL (4.0-11.0)
[2017-12-23 05:51] LABS: CREATININE 0.8 mg/dL (0.6-1.0); GFR 70.5; POTASSIUM 3.9 mmol/L (3.5-5.1)
[2017-12-23 07:00] VITALS: BP 109/69
--- NOTE | 2017-12-23 07:05 | EKG ---
[facility] [address] [place] [address] Test Date: 2017-12-22 Test Time: 19:59:09 Pat Name: RC MCMILLAN Department: Room: 428 1 Gender: F Baker Pie: : 1945 Requested By: ABDIEL FLOYD Order Number: [id number] Reading MD: Alberto Carranza MD Measurements Intervals [place] Rate: 77 P: 22 CT: 138 QRS: -54 QRSD: 102 T: 31 QT: 420 QTc: 482 Interpretive Statements SINUS RHYTHM ABNORMAL LEFT AXIS DEVIATION R-S TRANSITION ZONE IN V LEADS DISPLACED TO THE LEFT LEFT ANTERIOR FASCICULAR BLOCK NON SPECIFIC T ABNORMALITY PROLONGED QT Electronically Signed On 12-26-2017 9:03:26 CDT by Alberto Carranza MD
--- NOTE | 2017-12-23 08:32 | PDOC2 ---
BRADLEY FRANCOIS HOSPITALIST PHYSICIAN 12/23/17 0832: CONSULT Date of Consult Date of Consult DATE: 12/23/17 TIME: 08:28 Reason for Consult Reason for Consult: sbo vs ileus Referring Physician Referring Physician: ER Identification/Chief Complaint Chief Complaint abdominal pain Source Source: Chart review, Patient History of Present Illness Reason for Visit: Reports have abdominal pain and diarrhea, associated vomiting. Monday did not feel any better, sent to ER from [facility]. Reports normal stool yesterday, no flatus today, no pain now, no n/v Multiple abdominal surgeries, last was VIH by Dr John in May Past Medical History Cardiovascular: HTN, Hyperlipidemia CENTRAL NERVOUS SYSTEM: Migraine GI: Diverticulosis, GERD, Other Psych: Anxiety, Depression Endocrine: Hypothyroidism Past Surgical History Past Surgical History: Cholecystectomy, Hernia Repair, Total hip replacement, Total knee replacement, Other Family History Family History: No Significant, Other (noncontributory to current illness ) Social History No ALCOHOL: none Drugs: None Lives: [facility] Current Problem List Problem List Problems Medical Problems: (1) Adynamic ileus Status: Acute (2) Constipation Status: Acute Current Medications Current Medications Current Medications Sodium Chloride 1,000 ml @ 1,000 mls/hr 1X ONCE IV Last administered on at 19:57; Start 12/22/17 at 19:15; Stop 12/22/17 at 20:14; Status DC Pantoprazole Sodium (PROTONIX VIAL for IV PUSH) 40 mg 1X ONCE IVP Last administered on 12/22/17at 20:07; Start 12/22/17 at 19:30; Stop 12/22/17 at 19:31 ; Status DC Ondansetron HCl (Zofran) 4 mg 1X ONCE IV ; Start 12/22/17 at 19:30; Stop at 19:31; Status DC Fentanyl Citrate (Fentanyl 2ml Vial) 50 mcg 1X ONCE IV Last administered on at 20:02; Start 12/22/17 at 19:30; Stop 12/22/17 at 19:31; Status DC Iohexol (Omnipaque 300 Mg/ml) 100 ml 1X ONCE IV Last administered on at 21:45; Start 12/22/17 at 21:45; Stop 12/22/17 at 21:46; Status DC Info (CONTRAST GIVEN -- Rx MONITORING) 1 each PRN DAILY PRN MC SEE COMMENTS; Start 12/22/17 at 21:45; Stop 12/24/17 at 21:44 Ondansetron HCl (Zofran) 4 mg PRN Q8HRS PRN IV NAUSEA/VOMITING; Start 12/22/17 at 22:15; Stop 12/23/17 at 22:14 Fentanyl Citrate (Fentanyl 2ml Vial) 50 mcg PRN Q2HR PRN IV PAIN Last administered on 12/23/17at 02:21; Start 12/22/17 at 22:15; Stop 12/23/17 at 22:14 Pantoprazole Sodium (PROTONIX VIAL for IV PUSH) 40 mg DAILY IVP ; Start at 09:00 Sodium Chloride 1,000 ml @ 125 mls/hr 1X ONCE IV Last administered on at 00:15; Start 12/22/17 at 22:15; Stop 12/23/17 at 06:14; Status DC Pharmacy Consult (C.diff Med Screen By Rx) 1 each 1X ONCE MC ; Start 12/23/17 at 09:00; Stop 12/23/17 at 09:01 Enoxaparin Sodium (Lovenox 40mg Syringe) 40 mg DAILY SQ ; Start 12/23/17 at 09: 00 Nystatin (Mycostatin) 1 sara QID TP ; Start 12/23/17 at 09:00 Lidocaine (Lidoderm) 1 patch DAILY TP ; Start 12/23/17 at 09:00 Active Scripts Active Reported Cyclobenzaprine Hcl 10 Mg Tablet 1 Tab PO DAILY Nystatin 15 Gm Cream..g. 1 Sara TP QID apply to abdominal folds and groin [lidoerm 5%] 1 Patch TP DAILY apply to left lateral knee [lidoderm 5%] 1 Patch TOP DAILY [lidoderm] Lovenox (Enoxaparin Sodium) 40 Mg/0.4 Ml Disp.syrin 0.4 Ml SQ DAILY Oxybutynin Chloride 5 Mg Tablet 1 Tab PO BID [domperidone] 20 Mg PO TID Tums (Calcium Carbonate) 200 Mg Tab.chew 200 Mg PO PRN QID PRN Vitamin D3 (Cholecalciferol (Vitamin D3)) 1,000 Unit Tablet 2,000 Unit PO DAILY Multivitamins (Multivitamin) 1 Each Tablet 1 Tab PO DAILY Protonix (Pantoprazole Sodium) 20 Mg Tablet.dr 40 Mg PO DAILY Senna Plus Tablet (Sennosides/Docusate Sodium) 1 Each Tablet 1 Each PO DAILY [dulcolax] 10 Mg GA PRN DAILY PRN Xanax (Alprazolam) 0.5 Mg Tablet 0.5 Mg PO PRN Q8HRS PRN Melatonin 3 Mg Tablet 10 Mg PO QHS Colestipol Hcl 1 Gm Tablet 1 Gm PO PRN TID PRN Mucinex (Guaifenesin) 600 Mg Tablet.er 1 Tab PO BID PRN Levothyroxine Sodium 50 Mcg Tablet 1 Tab PO DAILY Vitamin D (Cholecalciferol (Vitamin D3)) 2,000 Unit Capsule 2,000 Unit PO TID Fioricet 50-300-40 Mg Capsule (Butalb/Acetaminophen/Caffeine) 1 Each Capsule 1 Each PO PRN Q4HRS PRN Gabapentin 100 Mg Capsule 300 Mg PO DAILY [Clonidine/Pump] Bupivacaine 0.25% On-Q Pump (Bupivacaine Hcl/Pf) 100 Ml Els.exhibit display representative.fr 100 Ml IJ PER PAIN PUMP Alprazolam 0.5 Mg Tab.rapdis 0.5 Mg PO DAILY Zofran Odt (Ondansetron) 8 Mg Tab.rapdis 8 Mg PO PRN Q8HRS PRN Risperdal (Risperidone) 0.5 Mg Tablet 0.5 Mg PO HS Zocor (Simvastatin) 20 Mg Tablet 20 Mg PO HS Wellbutrin (Bupropion Hcl) 100 Mg Tablet 150 Mg PO DAILY Allergies Allergies: Coded Allergies: prochlorperazine edisylate (Verified Allergy, Severe, Anaphylaxis, 11/20/17 ) prochlorperazine maleate (Verified Allergy, Severe, Anaphylaxis, 11/20/17) adhesive (Verified Allergy, Intermediate, 11/20/17) clindamycin (Verified Allergy, Intermediate, extreme heartburn, 11/20/17) latex (Verified Allergy, Intermediate, 11/20/17) ciprofloxacin (Verified Adverse Reaction, Intermediate, hallucinations, ) ciprofloxacin HCl (Verified Adverse Reaction, Intermediate, hallucinations , 11/21/17) oxycodone (Verified Adverse Reaction, Intermediate, 11/21/17) 'HALLUCINATIONS' ROS General: No: Chills, Other (fevers) PSYCHOLOGICAL ROS: No: Anxiety, Depression Eyes: No Blurry vision, No Double vision HEENT: No: Heacaches, Sore Throat Hematological and Lymphatic: No: Bleeding Problems, Blood Clots Respiratory: No: Cough, Shortness of breath Cardiovascular: No Chest Pain, No Palpitations Gastrointestinal: Yes Other (see hpi) Genitourinary: No Dysuria, No Hematuria Musculoskeletal: No Gait Disturbance, No Joint Pain Neurological: No Impaired Coord/balance, No Numbness/Tingling Skin: No Pruritus, No Rash Physical Exam General: Alert, Oriented X3, Cooperative, No acute distress HEENT: PERRLA, Mucous membr. moist/pink Lungs: Clear to auscultation, Normal air movement Heart: Regular rate, Normal S1, Normal S2, No murmurs Abdomen: Soft, No tenderness, Other (ND) Extremities: No clubbing, No cyanosis Skin: No rashes, No breakdown Neuro: Normal gait, Normal speech Psych/Mental Status: Mental status NL, Mood NL MUSCULOSKELETAL: No deformity, No swelling Vitals VITALS Vital Signs Date Time Temp Pulse Resp B/P (MAP) Pulse Ox O2 Delivery O2 Flow Rate FiO2 12/23/17 03:08 20 Nasal Cannula 2.0 12/23/17 03:00 98.8 70 110/62 (78) 94 98.8 Labs Labs Laboratory Tests Test 12/22/17 19:22 12/22/17 21:18 12/23/17 04:45 White Blood Count 7.5 x10^3/uL (4.0-11.0) 6.7 x10^3/uL (4.0-11.0) Red Blood Count 3.90 x10^6/uL (3.50-5.40) 3.65 x10^6/uL (3.50-5.40) Hemoglobin 11.1 g/dL (12.0-15.5) 10.2 g/dL (12.0-15.5) Hematocrit 33.6 % (36.0-47.0) 31.6 % (36.0-47.0) Mean Corpuscular Volume 86 fL (79-100) 87 fL (79-100) Mean Corpuscular Hemoglobin 29 pg (25-35) 28 pg (25-35) Mean Corpuscular Hemoglobin Concent 33 g/dL (31-37) 32 g/dL (31-37) Red Cell Distribution Width 17.7 % (11.5-14.5) 17.4 % (11.5-14.5) Platelet Count 478 x10^3/uL (140-400) 419 x10^3/uL (140-400) Neutrophils (%) (Auto) 53 % (31-73) 45 % (31-73) Lymphocytes (%) (Auto) 31 % (24-48) 37 % (24-48) Monocytes (%) (Auto) 14 % (0-9) 15 % (0-9) Eosinophils (%) (Auto) 1 % (0-3) 2 % (0-3) Basophils (%) (Auto) 1 % (0-3) 1 % (0-3) Neutrophils # (Auto) 4.0 x10^3uL (1.8-7.7) 3.0 x10^3uL (1.8-7.7) Lymphocytes # (Auto) 2.4 x10^3/uL (1.0-4.8) 2.5 x10^3/uL (1.0-4.8) Monocytes # (Auto) 1.0 x10^3/uL (0.0-1.1) 1.0 x10^3/uL (0.0-1.1) Eosinophils # (Auto) 0.0 x10^3/uL (0.0-0.7) 0.1 x10^3/uL (0.0-0.7) Basophils # (Auto) 0.1 x10^3/uL (0.0-0.2) 0.0 x10^3/uL (0.0-0.2) Sodium Level 135 mmol/L (136-145) 141 mmol/L (136-145) Potassium Level 3.5 mmol/L (3.5-5.1) 3.9 mmol/L (3.5-5.1) Chloride Level 105 mmol/L (98-107) 107 mmol/L (98-107) Carbon Dioxide Level 26 mmol/L (21-32) 26 mmol/L (21-32) Anion Gap 4 (6-14) 8 (6-14) Blood Urea Nitrogen 11 mg/dL (7-20) 10 mg/dL (7-20) Creatinine 0.9 mg/dL (0.6-1.0) 0.8 mg/dL (0.6-1.0) Estimated GFR (Cockcroft-Gault) 61.5 70.5 BUN/Creatinine Ratio 12 (6-20) Glucose Level 129 mg/dL (70-99) 104 mg/dL (70-99) Calcium Level 9.1 mg/dL (8.5-10.1) 8.0 mg/dL (8.5-10.1) Total Bilirubin 0.4 mg/dL (0.2-1.0) Aspartate Amino Transf (AST/SGOT) 29 U/L (15-37) Alanine Aminotransferase (ALT/SGPT) 27 U/L (14-59) Alkaline Phosphatase 119 U/L (46-116) Troponin I Quantitative < 0.017 ng/mL (0.000-0.055) Total Protein 7.1 g/dL (6.4-8.2) Albumin 3.0 g/dL (3.4-5.0) Albumin/Globulin Ratio 0.7 (1.0-1.7) Lipase 57 U/L (73-393) Ethyl Alcohol Level < 10 mg/dL (0-10) Urine Collection Type Unknown Urine Color Yellow Urine Clarity Clear Urine pH 7.0 Urine Specific [place] 1.010 Urine Protein Negative mg/dL (NEG-TRACE) Urine Glucose (UA) Negative mg/dL (NEG) Urine Ketones (Stick) Negative mg/dL (NEG) Urine Blood Negative (NEG) Urine Nitrite Negative (NEG) Urine Bilirubin Negative (NEG) Urine Urobilinogen Dipstick 1.0 mg/dL (0.2 mg/dL) Urine Leukocyte Esterase Trace (NEG) Urine RBC Occ /HPF (0-2) Urine WBC 5-10 /HPF (0-4) Urine Squamous Epithelial Cells Mod /LPF Urine Bacteria 0 /HPF (0-FEW) Urine Mucus Slight /LPF Urine Opiates Screen Pos (NEG) Urine Methadone Screen Neg (NEG) Urine Barbiturates Neg (NEG) Urine Phencyclidine Screen Neg (NEG) Urine Amphetamine/Methamphetamine Neg (NEG) Urine Benzodiazepines Screen Neg (NEG) Urine Cocaine Screen Neg (NEG) Urine Cannabinoids Screen Neg (NEG) Urine Ethyl Alcohol Neg (NEG) Laboratory Tests Test 12/22/17 19:22 12/22/17 21:18 12/23/17 04:45 White Blood Count 7.5 x10^3/uL (4.0-11.0) 6.7 x10^3/uL (4.0-11.0) Red Blood Count 3.90 x10^6/uL (3.50-5.40) 3.65 x10^6/uL (3.50-5.40) Hemoglobin 11.1 g/dL (12.0-15.5) 10.2 g/dL (12.0-15.5) Hematocrit 33.6 % (36.0-47.0) 31.6 % (36.0-47.0) Mean Corpuscular Volume 86 fL (79-100) 87 fL (79-100) Mean Corpuscular Hemoglobin 29 pg (25-35) 28 pg (25-35) Mean Corpuscular Hemoglobin Concent 33 g/dL (31-37) 32 g/dL (31-37) Red Cell Distribution Width 17.7 % (11.5-14.5) 17.4 % (11.5-14.5) Platelet Count 478 x10^3/uL (140-400) 419 x10^3/uL (140-400) Neutrophils (%) (Auto) 53 % (31-73) 45 % (31-73) Lymphocytes (%) (Auto) 31 % (24-48) 37 % (24-48) Monocytes (%) (Auto) 14 % (0-9) 15 % (0-9) Eosinophils (%) (Auto) 1 % (0-3) 2 % (0-3) Basophils (%) (Auto) 1 % (0-3) 1 % (0-3) Neutrophils # (Auto) 4.0 x10^3uL (1.8-7.7) 3.0 x10^3uL (1.8-7.7) Lymphocytes # (Auto) 2.4 x10^3/uL (1.0-4.8) 2.5 x10^3/uL (1.0-4.8) Monocytes # (Auto) 1.0 x10^3/uL (0.0-1.1) 1.0 x10^3/uL (0.0-1.1) Eosinophils # (Auto) 0.0 x10^3/uL (0.0-0.7) 0.1 x10^3/uL (0.0-0.7) Basophils # (Auto) 0.1 x10^3/uL (0.0-0.2) 0.0 x10^3/uL (0.0-0.2) Sodium Level 135 mmol/L (136-145) 141 mmol/L (136-145) Potassium Level 3.5 mmol/L (3.5-5.1) 3.9 mmol/L (3.5-5.1) Chloride Level 105 mmol/L (98-107) 107 mmol/L (98-107) Carbon Dioxide Level 26 mmol/L (21-32) 26 mmol/L (21-32) Anion Gap 4 (6-14) 8 (6-14) Blood Urea Nitrogen 11 mg/dL (7-20) 10 mg/dL (7-20) Creatinine 0.9 mg/dL (0.6-1.0) 0.8 mg/dL (0.6-1.0) Estimated GFR (Cockcroft-Gault) 61.5 70.5 BUN/Creatinine Ratio 12 (6-20) Glucose Level 129 mg/dL (70-99) 104 mg/dL (70-99) Calcium Level 9.1 mg/dL (8.5-10.1) 8.0 mg/dL (8.5-10.1) Total Bilirubin 0.4 mg/dL (0.2-1.0) Aspartate Amino Transf (AST/SGOT) 29 U/L (15-37) Alanine Aminotransferase (ALT/SGPT) 27 U/L (14-59) Alkaline Phosphatase 119 U/L (46-116) Troponin I Quantitative < 0.017 ng/mL (0.000-0.055) Total Protein 7.1 g/dL (6.4-8.2) Albumin 3.0 g/dL (3.4-5.0) Albumin/Globulin Ratio 0.7 (1.0-1.7) Lipase 57 U/L (73-393) Ethyl Alcohol Level < 10 mg/dL (0-10) Urine Collection Type Unknown Urine Color Yellow Urine Clarity Clear Urine pH 7.0 Urine Specific [place] 1.010 Urine Protein Negative mg/dL (NEG-TRACE) Urine Glucose (UA) Negative mg/dL (NEG) Urine Ketones (Stick) Negative mg/dL (NEG) Urine Blood Negative (NEG) Urine Nitrite Negative (NEG) Urine Bilirubin Negative (NEG) Urine Urobilinogen Dipstick 1.0 mg/dL (0.2 mg/dL) Urine Leukocyte Esterase Trace (NEG) Urine RBC Occ /HPF (0-2) Urine WBC 5-10 /HPF (0-4) Urine Squamous Epithelial Cells Mod /LPF Urine Bacteria 0 /HPF (0-FEW) Urine Mucus Slight /LPF Urine Opiates Screen Pos (NEG) Urine Methadone Screen Neg (NEG) Urine Barbiturates Neg (NEG) Urine Phencyclidine Screen Neg (NEG) Urine Amphetamine/Methamphetamine Neg (NEG) Urine Benzodiazepines Screen Neg (NEG) Urine Cocaine Screen Neg (NEG) Urine Cannabinoids Screen Neg (NEG) Urine Ethyl Alcohol Neg (NEG) Assessment/Plan Assessment/Plan SBO vs ileus--had stool yesterday, some diarrhea on , seems more c/w ileus/enteritis CT shows some constipation if KUB shows improvement start clears and bowel regimen ABA MARI MD 12/23/17 1644: CONSULT Assessment/Plan Assessment/Plan Patient seen and examined by me. Currently without complaints, would like ton eat. Abd is soft, ND NT She has not passed flatus and KUB showing dilated loops of small bowel. Hold on advancing diet. Agree with Gemma's assessment and plan. BRADLEY FRANCOIS APRN Dec 23, 2017 08:32 ABA MARI MD Dec 23, 2017 16:44
[2017-12-23] MEDS ORDERED: PANTOPRAZOLE IV PUSH 40 MG VIAL. IVP SCH (09:00)
[2017-12-23] MEDS: NYSTATIN 100,000 UNIT/GM TOPICAL CREAM 15GM TUBE. TP SCH ×4 (09:00→21:12)
[2017-12-23] MEDS ORDERED: ENOXAPARIN 40 MG/0.4 ML SYRINGE. SQ SCH (09:00)
[2017-12-23] MEDS ORDERED: C.DIFF MED SCREEN BY RX. MC ONE (09:00)
--- NOTE | 2017-12-23 09:00 | RAD ---
EXAM: Abdomen, single view. HISTORY: Small bowel obstruction. COMPARISON: CT obtained 12/22/2017. FINDINGS: A frontal view of the abdomen is obtained. There are distended air-filled loops of small bowel within the right abdomen. These are similar in caliber compared to the recent CT. There is contrast within the renal collecting system and bladder due to the recent contrast-enhanced exam. There are generators within the left inferior ventral abdominal wall and right flank, with catheters extending cephalad beyond the [id number]. There are cholecystectomy clips. There are left adnexal clips. IMPRESSION: Distended air-filled bowel within the right abdomen, similar in caliber compared to the recent CT. This favors persistent partial small bowel obstruction. Electronically signed by: Abbie Sanchez MD (12/23/2017 8:57 AM) [facility]
[2017-12-23] MEDS: LIDOCAINE (700MG/PATCH) PATCH. TP SCH (09:23)
--- NOTE | 2017-12-23 10:57 | CONS ---
DATE OF CONSULTATION: ATTENDING PHYSICIAN: Dr. Rodriguez. REASON FOR CONSULTATION: Persistent chronic cough. HISTORY OF PRESENT ILLNESS: The patient is a 72-year-old female who has no history of tobacco use. She has history of gastroparesis, small-bowel obstruction, and abdominal surgery who presented to the hospital with mid epigastric abdominal pain with nausea, vomiting and is being admitted for ileus. She also had a knee surgery about a month ago. I have been asked to see her for further evaluation for chronic cough. Apparently, her cough has been present for about a year or so. The patient stated the cough is present day and night and does not get worse at night time. No fever, no chills. She does have postnasal drainage. She also has history of gastroparesis after fundoplication surgery many years ago. The patient states she used to have birds for about 10-15 years, but then they were let go about 20 years ago. She had parrots. She also has history of obstructive sleep apnea. She has some secondhand exposure to tobacco. No weight loss. She was not raised on a farm. 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 I have been asked to see her for further evaluation. Chest x-ray did not reveal any definite infiltrates. PAST MEDICAL HISTORY: Significant for history of anxiety, arthritis, depression, diverticulitis, GERD, gastroparesis, chronic cough, and chronic pain. PAST SURGICAL HISTORY: Cholecystectomy, , knee replacement, tonsillectomy and many others. ALLERGIES: CIPRO, CLINDAMYCIN, OXYCODONE, PROCHLORPERAZINE. MEDICATIONS: All reviewed, as listed in the [facility]AD. REVIEW OF SYSTEMS: Twelve-point system obtained. Pertinent positives discussed in my history of present illness, otherwise noncontributory. All systems that were negative were reviewed as well. SOCIAL HISTORY: Nonsmoker, but had some secondhand tobacco exposures. FAMILY HISTORY: Noncontributory to lungs. PHYSICAL EXAMINATION: VITAL SIGNS: Reviewed. Stable. Pulse ox 89-94% on 2 liters. HEENT: Sclerae nonicteric. NECK: Supple. LUNGS: Clear. No crackles, no wheezes. CARDIOVASCULAR: Regular rate. ABDOMEN: Soft, distended. EXTREMITIES: With some swelling in the left knee where she had the surgery. LABORATORY DATA: Reviewed. White cell count 6.7, hemoglobin 10.2, and platelets are 419. BUN and creatinine are normal. IMPRESSION: 1. Chronic persistent cough for almost 1 year. It is present day and night. The cough can be multifactorial and includes a combination of acid reflux/post nasal drip and possible cough variant Asthma. She has a history of gastroparesis since her fundoplication surgery many years ago. She also has postnasal drainage, which is another contributing factor. The possibility of cough-variant asthma cannot be ruled out. The patient was born prematurely, but there were no history of recurrent infections growing as a child. The patient also used to have parrots for about 10-15 years, but she let them go 20 years ago and clinically less likely hypersensitivity pneumonitis. 2. No significant history of tobacco use. 3. Recent admission for ileus. RECOMMENDATIONS: 1. Would do a noncontrast CT chest to rule out any interstitial lung disease. 2. Would recommend treatment for postnasal drainage and acid reflux. Continue with PPI for now. 3. Trial of a steroid inhaler to see improvement in airway inflammation and indirectly improvement in her cough. We will use Pulmicort nebulizer while in the hospital. Discussed with the patient's , dietary precautions were given. She needs to keep her head of the bed elevated at 30 degrees and use 2 pillows while sleeping. Further recommendations will follow. DARNELL SHANNON MD DR: JANET/benito JOB#: [id number] / [id number] CAROLE
[2017-12-23 11:00] VITALS: BP 119/79
[2017-12-23] MEDS: FLUTICASONE 50MCG/NASAL SPRAY 16GM BOTTLE. NS SCH (11:00)
[2017-12-23] MEDS ORDERED: CALCIUM CARBONATE 500 MG TAB.CHEW PO PRN (11:30)
[2017-12-23] MEDS ORDERED: COLESTIPOL HCL 1 GM TABLET PO PRN (11:30)
[2017-12-23] MEDS ORDERED: ALPRAZolam 0.5 MG TABLET PO PRN (11:30)
[2017-12-23] MEDS ORDERED: DOCUSATE SODIUM 100 MG CAPSULE. PO PRN (11:45)
--- NOTE | 2017-12-23 14:57 | PDOC1 ---
History and Physical Date of Admission Date of Admission 12/22/17 Identification/Chief Complaint Chief Complaint abd pain Source Source: Chart review, Patient History of Present Illness History of Present Illness HPI HPI Patient is a 72 year old female with history of anxiety, depression, arthritis , gastroparesis, small bowel obstruction, abdominal surgeries, Came to ER for abd pain. Pt and her are poor historian, they told me they did not have sbo before. HE SAid she had multiple abd sx, but cannot tell me all details. She started to have middle abd pain 2 ds, ago, with N/V, still has BM, last night was yesterday , not sure if had gas or not. no fever, chills , cough, sob. CT showed sbo, KUB today showed partial sbo. Past Medical History Cardiovascular: HTN, Hyperlipidemia CENTRAL NERVOUS SYSTEM: Migraine GI: Diverticulosis, GERD, Other Psych: Anxiety, Depression Endocrine: Hypothyroidism Past Surgical History Past Surgical History: Cholecystectomy, Hernia Repair, Total hip replacement, Total knee replacement, Other Family History Family History: No Significant, Other (noncontributory to current illness ) Social History Smoke: No ALCOHOL: none Drugs: None Current Problem List Problem List Problems Medical Problems: (1) Adynamic ileus Status: Acute (2) Constipation Status: Acute Current Medications Current Medications Current Medications Medications (Trade) Dose Ordered Sig/Suki Start Time Stop Time Status Last Admin Dose Admin Acetaminophen (Tylenol) 650 mg PRN Q6HRS PRN 12/23/17 11:45 Alprazolam (Xanax) 0.5 mg PRN Q8HRS PRN 12/23/17 11:30 Amino Acids/ Glycerin/ Electrolytes 1,000 ml @ 80 mls/hr [id number] 12/23/17 11:45 Budesonide (Pulmicort) 0.5 mg RTBID 12/23/17 20:00 Bupropion HCl (Wellbutrin Xl) 150 mg DAILY 12/23/17 12:00 Calcium Carbonate/ Glycine (Tums) 500 mg PRN QID PRN 12/23/17 11:30 Colestipol HCl (Colestid) 1 gm PRN TID PRN 12/23/17 11:30 Docusate Sodium (Colace) 100 mg PRN DAILY PRN 12/23/17 11:45 Enoxaparin Sodium (Lovenox 40mg Syringe) 40 mg DAILY 12/23/17 09:00 12/23/17 09:23 40 MG Famotidine (Pepcid Vial) 20 mg BID 12/23/17 21:00 Fentanyl Citrate (Fentanyl 2ml Vial) 50 mcg PRN Q2HR PRN 12/22/17 22:15 12/23/17 22:14 12/23/17 14:19 50 MCG Fluticasone Propionate (Flonase) 2 spray DAILY 12/23/17 11:00 12/23/17 11:00 2 SPRAY Gabapentin (Neurontin) 300 mg DAILY 12/23/17 12:00 Info (CONTRAST GIVEN -- Rx MONITORING) 1 each PRN DAILY PRN 12/22/17 21:45 12/24/17 21:44 Iohexol (Omnipaque 300 Mg/ml) 100 ml 1X ONCE 12/22/17 21:45 12/22/17 21:46 DC 12/22/17 21:45 100 ML Levothyroxine Sodium (Synthroid) 50 mcg DAILY07 12/23/17 12:00 Lidocaine (Lidoderm) 1 patch DAILY 12/23/17 09:00 12/23/17 09:23 1 PATCH Nystatin (Mycostatin) 1 astrid QID 12/23/17 09:00 12/23/17 09:00 1 ASTRID Ondansetron HCl (Zofran) 4 mg PRN Q6HRS PRN 12/23/17 11:45 Pantoprazole Sodium (PROTONIX VIAL for IV PUSH) 40 mg DAILY 12/23/17 09:00 12/23/17 11:08 DC 12/23/17 09:24 40 MG Pharmacy Consult (C.diff Med Screen By Rx) 1 each 1X ONCE 12/23/17 09:00 12/23/17 09:01 Cancel Risperidone (RisperDAL) 0.5 mg QHS 12/23/17 21:00 Simvastatin (Zocor) 20 mg HS 12/23/17 21:00 Sodium Chloride 1,000 ml @ 125 mls/hr 1X ONCE 12/22/17 22:15 12/23/17 06:14 DC 12/23/17 00:15 125 MLS/HR Vitamin D (Vitamin D3) 2,000 unit DAILY 12/23/17 12:00 Allergies Allergies Allergies Coded Allergies Type Severity Reaction Last Updated Verified prochlorperazine edisylate Allergy Severe Anaphylaxis 11/20/17 Yes prochlorperazine maleate Allergy Severe Anaphylaxis 11/20/17 Yes adhesive Allergy Intermediate 11/20/17 Yes clindamycin Allergy Intermediate extreme heartburn 11/20/17 Yes latex Allergy Intermediate 11/20/17 Yes ciprofloxacin Adverse Reaction Intermediate hallucinations 11/21/17 Yes ciprofloxacin HCl Adverse Reaction Intermediate hallucinations 11/21/17 Yes oxycodone Adverse Reaction Intermediate 11/21/17 Yes ROS Review of System CONSTITUTIONAL: No fever or chills EYES: No recent changes SKIN: No rash or itching CARDIOVASCULAR: No chest pain, syncope, palpitations, or edema RESPIRATORY: No SOB or cough GASTROINTESTINAL: No nausea, vomiting or abdominal pain NEUROLOGICAL: No headaches or weakness ENDOCRINE: No cold or heat intolerance GENITOURINARY: No urgency or frequency of urination MUSCULOSKELETAL: No back pain or joint pain LYMPHATICS: No enlarged lymph nodes PSYCHIATRIC: No anxiety or depression Physical Exam Physical Exam GEN.: No apparent distress. Alert and oriented. HEENT: Head is normocephalic, atraumatic NECK: Supple. LUNGS: Clear to auscultation. HEART: RRR, S1, S2 present. Peripheral pulses intact ABDOMEN: Soft, mild distended abd, decreased bowel sounds. mild diffuse tenderness. EXTREMITIES: Without any cyanosis. NEUROLOGIC: Normal speech, normal tone PSYCHIATRIC: Normal affect, normal mood. SKIN: No ulcerations Vitals Vitals Vital Signs Date Time Temp Pulse Resp B/P (MAP) Pulse Ox O2 Delivery O2 Flow Rate FiO2 12/23/17 14:19 18 Nasal Cannula 12/23/17 11:00 98.0 78 119/79 (92) 91 98.0 12/23/17 07:00 2.0 Labs Labs Laboratory Tests Test 12/22/17 19:22 12/22/17 21:18 12/23/17 04:45 White Blood Count 7.5 x10^3/uL (4.0-11.0) 6.7 x10^3/uL (4.0-11.0) Red Blood Count 3.90 x10^6/uL (3.50-5.40) 3.65 x10^6/uL (3.50-5.40) Hemoglobin 11.1 g/dL (12.0-15.5) 10.2 g/dL (12.0-15.5) Hematocrit 33.6 % (36.0-47.0) 31.6 % (36.0-47.0) Mean Corpuscular Volume 86 fL (79-100) 87 fL (79-100) Mean Corpuscular Hemoglobin 29 pg (25-35) 28 pg (25-35) Mean Corpuscular Hemoglobin Concent 33 g/dL (31-37) 32 g/dL (31-37) Red Cell Distribution Width 17.7 % (11.5-14.5) 17.4 % (11.5-14.5) Platelet Count 478 x10^3/uL (140-400) 419 x10^3/uL (140-400) Neutrophils (%) (Auto) 53 % (31-73) 45 % (31-73) Lymphocytes (%) (Auto) 31 % (24-48) 37 % (24-48) Monocytes (%) (Auto) 14 % (0-9) 15 % (0-9) Eosinophils (%) (Auto) 1 % (0-3) 2 % (0-3) Basophils (%) (Auto) 1 % (0-3) 1 % (0-3) Neutrophils # (Auto) 4.0 x10^3uL (1.8-7.7) 3.0 x10^3uL (1.8-7.7) Lymphocytes # (Auto) 2.4 x10^3/uL (1.0-4.8) 2.5 x10^3/uL (1.0-4.8) Monocytes # (Auto) 1.0 x10^3/uL (0.0-1.1) 1.0 x10^3/uL (0.0-1.1) Eosinophils # (Auto) 0.0 x10^3/uL (0.0-0.7) 0.1 x10^3/uL (0.0-0.7) Basophils # (Auto) 0.1 x10^3/uL (0.0-0.2) 0.0 x10^3/uL (0.0-0.2) Sodium Level 135 mmol/L (136-145) 141 mmol/L (136-145) Potassium Level 3.5 mmol/L (3.5-5.1) 3.9 mmol/L (3.5-5.1) Chloride Level 105 mmol/L (98-107) 107 mmol/L (98-107) Carbon Dioxide Level 26 mmol/L (21-32) 26 mmol/L (21-32) Anion Gap 4 (6-14) 8 (6-14) Blood Urea Nitrogen 11 mg/dL (7-20) 10 mg/dL (7-20) Creatinine 0.9 mg/dL (0.6-1.0) 0.8 mg/dL (0.6-1.0) Estimated GFR (Cockcroft-Gault) 61.5 70.5 BUN/Creatinine Ratio 12 (6-20) Glucose Level 129 mg/dL (70-99) 104 mg/dL (70-99) Calcium Level 9.1 mg/dL (8.5-10.1) 8.0 mg/dL (8.5-10.1) Total Bilirubin 0.4 mg/dL (0.2-1.0) Aspartate Amino Transf (AST/SGOT) 29 U/L (15-37) Alanine Aminotransferase (ALT/SGPT) 27 U/L (14-59) Alkaline Phosphatase 119 U/L (46-116) Troponin I Quantitative < 0.017 ng/mL (0.000-0.055) Total Protein 7.1 g/dL (6.4-8.2) Albumin 3.0 g/dL (3.4-5.0) Albumin/Globulin Ratio 0.7 (1.0-1.7) Lipase 57 U/L (73-393) Ethyl Alcohol Level < 10 mg/dL (0-10) Urine Collection Type Unknown Urine Color Yellow Urine Clarity Clear Urine pH 7.0 Urine Specific [place] 1.010 Urine Protein Negative mg/dL (NEG-TRACE) Urine Glucose (UA) Negative mg/dL (NEG) Urine Ketones (Stick) Negative mg/dL (NEG) Urine Blood Negative (NEG) Urine Nitrite Negative (NEG) Urine Bilirubin Negative (NEG) Urine Urobilinogen Dipstick 1.0 mg/dL (0.2 mg/dL) Urine Leukocyte Esterase Trace (NEG) Urine RBC Occ /HPF (0-2) Urine WBC 5-10 /HPF (0-4) Urine Squamous Epithelial Cells Mod /LPF Urine Bacteria 0 /HPF (0-FEW) Urine Mucus Slight /LPF Urine Opiates Screen Pos (NEG) Urine Methadone Screen Neg (NEG) Urine Barbiturates Neg (NEG) Urine Phencyclidine Screen Neg (NEG) Urine Amphetamine/Methamphetamine Neg (NEG) Urine Benzodiazepines Screen Neg (NEG) Urine Cocaine Screen Neg (NEG) Urine Cannabinoids Screen Neg (NEG) Urine Ethyl Alcohol Neg (NEG) Laboratory Tests Test 12/22/17 19:22 12/22/17 21:18 12/23/17 04:45 White Blood Count 7.5 x10^3/uL (4.0-11.0) 6.7 x10^3/uL (4.0-11.0) Red Blood Count 3.90 x10^6/uL (3.50-5.40) 3.65 x10^6/uL (3.50-5.40) Hemoglobin 11.1 g/dL (12.0-15.5) 10.2 g/dL (12.0-15.5) Hematocrit 33.6 % (36.0-47.0) 31.6 % (36.0-47.0) Mean Corpuscular Volume 86 fL (79-100) 87 fL (79-100) Mean Corpuscular Hemoglobin 29 pg (25-35) 28 pg (25-35) Mean Corpuscular Hemoglobin Concent 33 g/dL (31-37) 32 g/dL (31-37) Red Cell Distribution Width 17.7 % (11.5-14.5) 17.4 % (11.5-14.5) Platelet Count 478 x10^3/uL (140-400) 419 x10^3/uL (140-400) Neutrophils (%) (Auto) 53 % (31-73) 45 % (31-73) Lymphocytes (%) (Auto) 31 % (24-48) 37 % (24-48) Monocytes (%) (Auto) 14 % (0-9) 15 % (0-9) Eosinophils (%) (Auto) 1 % (0-3) 2 % (0-3) Basophils (%) (Auto) 1 % (0-3) 1 % (0-3) Neutrophils # (Auto) 4.0 x10^3uL (1.8-7.7) 3.0 x10^3uL (1.8-7.7) Lymphocytes # (Auto) 2.4 x10^3/uL (1.0-4.8) 2.5 x10^3/uL (1.0-4.8) Monocytes # (Auto) 1.0 x10^3/uL (0.0-1.1) 1.0 x10^3/uL (0.0-1.1) Eosinophils # (Auto) 0.0 x10^3/uL (0.0-0.7) 0.1 x10^3/uL (0.0-0.7) Basophils # (Auto) 0.1 x10^3/uL (0.0-0.2) 0.0 x10^3/uL (0.0-0.2) Sodium Level 135 mmol/L (136-145) 141 mmol/L (136-145) Potassium Level 3.5 mmol/L (3.5-5.1) 3.9 mmol/L (3.5-5.1) Chloride Level 105 mmol/L (98-107) 107 mmol/L (98-107) Carbon Dioxide Level 26 mmol/L (21-32) 26 mmol/L (21-32) Anion Gap 4 (6-14) 8 (6-14) Blood Urea Nitrogen 11 mg/dL (7-20) 10 mg/dL (7-20) Creatinine 0.9 mg/dL (0.6-1.0) 0.8 mg/dL (0.6-1.0) Estimated GFR (Cockcroft-Gault) 61.5 70.5 BUN/Creatinine Ratio 12 (6-20) Glucose Level 129 mg/dL (70-99) 104 mg/dL (70-99) Calcium Level 9.1 mg/dL (8.5-10.1) 8.0 mg/dL (8.5-10.1) Total Bilirubin 0.4 mg/dL (0.2-1.0) Aspartate Amino Transf (AST/SGOT) 29 U/L (15-37) Alanine Aminotransferase (ALT/SGPT) 27 U/L (14-59) Alkaline Phosphatase 119 U/L (46-116) Troponin I Quantitative < 0.017 ng/mL (0.000-0.055) Total Protein 7.1 g/dL (6.4-8.2) Albumin 3.0 g/dL (3.4-5.0) Albumin/Globulin Ratio 0.7 (1.0-1.7) Lipase 57 U/L (73-393) Ethyl Alcohol Level < 10 mg/dL (0-10) Urine Collection Type Unknown Urine Color Yellow Urine Clarity Clear Urine pH 7.0 Urine Specific [place] 1.010 Urine Protein Negative mg/dL (NEG-TRACE) Urine Glucose (UA) Negative mg/dL (NEG) Urine Ketones (Stick) Negative mg/dL (NEG) Urine Blood Negative (NEG) Urine Nitrite Negative (NEG) Urine Bilirubin Negative (NEG) Urine Urobilinogen Dipstick 1.0 mg/dL (0.2 mg/dL) Urine Leukocyte Esterase Trace (NEG) Urine RBC Occ /HPF (0-2) Urine WBC 5-10 /HPF (0-4) Urine Squamous Epithelial Cells Mod /LPF Urine Bacteria 0 /HPF (0-FEW) Urine Mucus Slight /LPF Urine Opiates Screen Pos (NEG) Urine Methadone Screen Neg (NEG) Urine Barbiturates Neg (NEG) Urine Phencyclidine Screen Neg (NEG) Urine Amphetamine/Methamphetamine Neg (NEG) Urine Benzodiazepines Screen Neg (NEG) Urine Cocaine Screen Neg (NEG) Urine Cannabinoids Screen Neg (NEG) Urine Ethyl Alcohol Neg (NEG) VTE Prophylaxis Ordered VTE Prophylaxis Devices: Yes VTE Pharmacological Prophylaxi: Yes Assessment/Plan Assessment/Plan abd pain with partial SBO h/o multiple abd sx with hernia repair GERD gastroparesis with chronic abd pain anxiety morbid obesity hypothyroidism plan: sx consult, no sx for now, npo ivf KUB tmr pulm consult for chronic cough cont some po home meds dvt, gi ppx ANTONY SHANNON MD Dec 23, 2017 14:57
[2017-12-23 15:00] VITALS: BP 121/72
[2017-12-23] MEDS ORDERED: ALBUTEROL SULFATE 2.5 MG/3 ML NEBU. NEB PRN (15:00)
[2017-12-23] MEDS: AMINO AC 3%/ELECTROLYTE/GLYCER 1,000 ML IV SCH (16:39)
[2017-12-23] MEDS: GABAPENTIN 300 MG CAPSULE. PO SCH (16:40)
[2017-12-23] MEDS: buPROPion XL 150 MG TAB.ER.24H. PO SCH (16:40)
[2017-12-23] MEDS: CHOLECALCIFEROL (VITAMIN D3) 1,000 UNIT TABLET PO SCH (16:40)
[2017-12-23] MEDS: LEVOTHYROXINE 50 MCG TABLET PO SCH (16:40)
[2017-12-23 19:00] VITALS: BP 116/74
[2017-12-23] MEDS: BUDESONIDE 0.5 MG/2 ML NEBU. NEB SCH (20:00)
[2017-12-23] MEDS ORDERED: risperiDONE 1 MG TABLET. PO SCH (21:00)
[2017-12-23] MEDS: FAMOTIDINE 20 MG/2 ML VIAL IVP SCH (21:12)
[2017-12-23] MEDS: SIMVASTATIN 20 MG TABLET PO SCH (21:12)
--- NOTE | 2017-12-23 21:56 | RAD ---
EXAM: Chest CT without intravenous contrast. HISTORY: Interstitial lung disease. TECHNIQUE: Computed tomographic images of the chest were obtained without contrast. Multiplanar reformatting was performed. *One or more of the following individualized dose reduction techniques were utilized for this examination: 1. Automated exposure control. 2. Adjustment of the mA and/or kV according to patient size. 3. Use of iterative reconstruction technique. COMPARISON: Radiograph dated 10/30/2017. FINDINGS: There is no pneumothorax or pleural effusion. There is no infiltrate. There is minimal left greater than right infrahilar atelectasis. There is no suspicious pulmonary nodule. The heart is normal in size. There is no mediastinal or hilar lymphadenopathy. There is increased distal paraesophageal fat without a significant hernia. There is diastasis involving the superior ventral abdominal wall resulting in protrusion of fat and a portion of the wall of the stomach. There is evidence of ventral abdominal wall hernia repair. The gallbladder is surgically absent. There is common bile duct dilatation likely due to reservoir effect status post cholecystectomy. The pancreas, spleen and adrenal glands are unremarkable. There is contrast within the prominent left renal collecting system, incompletely evaluated on the current exam. There are dorsal column stimulator leads terminating within the upper mid thoracic central canal. There is and intrathecal pain pump extending cephalad beyond the [id number]. There is mild degenerative change of the thoracic spine. There is no suspicious osseous lesion. IMPRESSION: 1. No acute thoracic finding or evidence of chronic interstitial lung disease. 2. Minimal left greater than right infrahilar atelectasis. 3. Contrast within a mildly dilated left renal collecting system, partially excluded from the [id number]. This is better seen on the abdomen and pelvis CT performed one day prior. 4. Biliary ductal dilatation. 5. Superior ventral abdominal wall diastasis and evidence of prior hernia repair. 6. Please refer to the separate report for the abdomen and pelvis CT performed one day prior for additional abdominal findings. Electronically signed by: Abbie Sancehz MD (12/23/2017 9:53 PM) [facility]
[2017-12-23] MEDS: ACETAMINOPHEN 325 MG TABLET. PO PRN (22:17)
[2017-12-23] MEDS: HEPARIN PF for SUB-Q USE 5,000 UNIT/0.5 ML VIAL. SQ SCH (22:18)
[2017-12-23 22:40] VITALS: BP 107/67
[2017-12-24] MEDS: AMINO AC 3%/ELECTROLYTE/GLYCER 1,000 ML IV SCH ×2 (00:15→12:56)
[2017-12-24] MEDS ORDERED: ZOLPIDEM 5 MG TABLET. PO PRN (00:45)
[2017-12-24] MEDS ORDERED: HYDROcodone/APAP 5/325MG 1 TAB TABLET PO PRN ×2 (02:45)
[2017-12-24] MEDS ORDERED: fentaNYL PF VIAL 100 MCG/2 ML VIAL IV PRN (02:45)
[2017-12-24 02:50] VITALS: BP 139/92
[2017-12-24 05:32] LABS: BASO # 0.1 x10^3/uL (0.0-0.2); BASO % 1 % (0-3); EOS # 0.1 x10^3/uL (0.0-0.7); EOS % 2 % (0-3); HEMATOCRIT 35.3 % (36.0-47.0); HEMOGLOBIN 11.4 g/dL (12.0-15.5); LYMPH # 2.4 x10^3/uL (1.0-4.8); LYMPH % 36 % (24-48); MEAN CORPUSCULAR HEMOGLOBIN 28 pg (25-35); MEAN CORPUSCULAR HGB CONC 33 g/dL (31-37); MEAN CORPUSCULAR VOLUME 87 fL (79-100); MONO % 15 % (0-9); NEUT # 3.1 x10^3uL (1.8-7.7); NEUT % 46 % (31-73); PLATELET COUNT 474 x10^3/uL (140-400); RED BLOOD COUNT 4.07 x10^6/uL (3.50-5.40); RED CELL DISTRIBUTION WIDTH 17.2 % (11.5-14.5); WHITE BLOOD COUNT 6.6 x10^3/uL (4.0-11.0)
[2017-12-24] MEDS: HEPARIN PF for SUB-Q USE 5,000 UNIT/0.5 ML VIAL. SQ SCH ×3 (06:01→21:15)
[2017-12-24] MEDS: LEVOTHYROXINE 50 MCG TABLET PO SCH (06:01)
[2017-12-24 06:05] LABS: CALCIUM 8.9 mg/dL (8.5-10.1); GFR 54.5; POTASSIUM 3.6 mmol/L (3.5-5.1)
[2017-12-24 07:00] VITALS: BP 123/78
[2017-12-24] MEDS: BUDESONIDE 0.5 MG/2 ML NEBU. NEB SCH ×2 (07:48→19:46)
--- NOTE | 2017-12-24 08:32 | RAD ---
EXAM: Abdomen, single view. HISTORY: Pain COMPARISON: 12/23/2017 FINDINGS: A frontal view of the abdomen is obtained. There are minimally decreased distended air-filled loops of small bowel within the right midabdomen. There is a small amount of stool within the colon. No clear transition point is seen. There is instrumented fusion and laminectomy decompression involving the lumbar spine. There are spinal canal catheters extending cephalad beyond the [id number], with generator is within the left ventral abdominal wall and right flank. There are left pelvic clips. IMPRESSION: Minimally decreased air-filled loops of small bowel within the right abdomen. Electronically signed by: Abbie Sanchez MD (12/24/2017 8:29 AM) [facility]
[2017-12-24] MEDS: NYSTATIN 100,000 UNIT/GM TOPICAL CREAM 15GM TUBE. TP SCH ×4 (09:00→21:13)
--- NOTE | 2017-12-24 09:09 | PDOC ---
BRADLEY FRANCOIS EVENT MANAGER 12/24/17 0909: SURGICAL PROGRESS NOTE Subjective reports small BM, + flatus no pain, no nausea Vital Signs Vital Signs Date Time Temp Pulse Resp B/P (MAP) Pulse Ox O2 Delivery O2 Flow Rate FiO2 12/24/17 07:49 95 Room Air 12/24/17 07:00 97.6 74 18 123/78 (93) 97.6 12/23/17 22:40 2.0 I&O Intake and Output 12/24/17 07:00 Intake Total 250 ml Output Total 5 ml Balance 245 ml Intake Oral 250 ml Output Urine Total 5 ml # Voids 2 General: Alert, Oriented X3, Cooperative, No acute distress Abdomen: Soft, No tenderness Labs Laboratory Tests Test 12/22/17 19:22 12/22/17 21:18 12/22/17 23:57 12/23/17 04:45 White Blood Count 7.5 x10^3/uL (4.0-11.0) 6.7 x10^3/uL (4.0-11.0) Red Blood Count 3.90 x10^6/uL (3.50-5.40) 3.65 x10^6/uL (3.50-5.40) Hemoglobin 11.1 g/dL (12.0-15.5) 10.2 g/dL (12.0-15.5) Hematocrit 33.6 % (36.0-47.0) 31.6 % (36.0-47.0) Mean Corpuscular Volume 86 fL (79-100) 87 fL (79-100) Mean Corpuscular Hemoglobin 29 pg (25-35) 28 pg (25-35) Mean Corpuscular Hemoglobin Concent 33 g/dL (31-37) 32 g/dL (31-37) Red Cell Distribution Width 17.7 % (11.5-14.5) 17.4 % (11.5-14.5) Platelet Count 478 x10^3/uL (140-400) 419 x10^3/uL (140-400) Neutrophils (%) (Auto) 53 % (31-73) 45 % (31-73) Lymphocytes (%) (Auto) 31 % (24-48) 37 % (24-48) Monocytes (%) (Auto) 14 % (0-9) 15 % (0-9) Eosinophils (%) (Auto) 1 % (0-3) 2 % (0-3) Basophils (%) (Auto) 1 % (0-3) 1 % (0-3) Neutrophils # (Auto) 4.0 x10^3uL (1.8-7.7) 3.0 x10^3uL (1.8-7.7) Lymphocytes # (Auto) 2.4 x10^3/uL (1.0-4.8) 2.5 x10^3/uL (1.0-4.8) Monocytes # (Auto) 1.0 x10^3/uL (0.0-1.1) 1.0 x10^3/uL (0.0-1.1) Eosinophils # (Auto) 0.0 x10^3/uL (0.0-0.7) 0.1 x10^3/uL (0.0-0.7) Basophils # (Auto) 0.1 x10^3/uL (0.0-0.2) 0.0 x10^3/uL (0.0-0.2) Sodium Level 135 mmol/L (136-145) 141 mmol/L (136-145) Potassium Level 3.5 mmol/L (3.5-5.1) 3.9 mmol/L (3.5-5.1) Chloride Level 105 mmol/L (98-107) 107 mmol/L (98-107) Carbon Dioxide Level 26 mmol/L (21-32) 26 mmol/L (21-32) Anion Gap 4 (6-14) 8 (6-14) Blood Urea Nitrogen 11 mg/dL (7-20) 10 mg/dL (7-20) Creatinine 0.9 mg/dL (0.6-1.0) 0.8 mg/dL (0.6-1.0) Estimated GFR (Cockcroft-Gault) 61.5 70.5 BUN/Creatinine Ratio 12 (6-20) Glucose Level 129 mg/dL (70-99) 104 mg/dL (70-99) Calcium Level 9.1 mg/dL (8.5-10.1) 8.0 mg/dL (8.5-10.1) Total Bilirubin 0.4 mg/dL (0.2-1.0) Aspartate Amino Transf (AST/SGOT) 29 U/L (15-37) Alanine Aminotransferase (ALT/SGPT) 27 U/L (14-59) Alkaline Phosphatase 119 U/L (46-116) Troponin I Quantitative < 0.017 ng/mL (0.000-0.055) Total Protein 7.1 g/dL (6.4-8.2) Albumin 3.0 g/dL (3.4-5.0) Albumin/Globulin Ratio 0.7 (1.0-1.7) Lipase 57 U/L (73-393) Ethyl Alcohol Level < 10 mg/dL (0-10) Urine Collection Type Unknown Urine Color Yellow Urine Clarity Clear Urine pH 7.0 Urine Specific [place] 1.010 Urine Protein Negative mg/dL (NEG-TRACE) Urine Glucose (UA) Negative mg/dL (NEG) Urine Ketones (Stick) Negative mg/dL (NEG) Urine Blood Negative (NEG) Urine Nitrite Negative (NEG) Urine Bilirubin Negative (NEG) Urine Urobilinogen Dipstick 1.0 mg/dL (0.2 mg/dL) Urine Leukocyte Esterase Trace (NEG) Urine RBC Occ /HPF (0-2) Urine WBC 5-10 /HPF (0-4) Urine Squamous Epithelial Cells Mod /LPF Urine Bacteria 0 /HPF (0-FEW) Urine Mucus Slight /LPF Urine Opiates Screen Pos (NEG) Urine Methadone Screen Neg (NEG) Urine Barbiturates Neg (NEG) Urine Phencyclidine Screen Neg (NEG) Urine Amphetamine/Methamphetamine Neg (NEG) Urine Benzodiazepines Screen Neg (NEG) Urine Cocaine Screen Neg (NEG) Urine Cannabinoids Screen Neg (NEG) Urine Ethyl Alcohol Neg (NEG) Nasal Screen MRSA (PCR) Negative (Negative) Test 12/24/17 04:30 White Blood Count 6.6 x10^3/uL (4.0-11.0) Red Blood Count 4.07 x10^6/uL (3.50-5.40) Hemoglobin 11.4 g/dL (12.0-15.5) Hematocrit 35.3 % (36.0-47.0) Mean Corpuscular Volume 87 fL (79-100) Mean Corpuscular Hemoglobin 28 pg (25-35) Mean Corpuscular Hemoglobin Concent 33 g/dL (31-37) Red Cell Distribution Width 17.2 % (11.5-14.5) Platelet Count 474 x10^3/uL (140-400) Neutrophils (%) (Auto) 46 % (31-73) Lymphocytes (%) (Auto) 36 % (24-48) Monocytes (%) (Auto) 15 % (0-9) Eosinophils (%) (Auto) 2 % (0-3) Basophils (%) (Auto) 1 % (0-3) Neutrophils # (Auto) 3.1 x10^3uL (1.8-7.7) Lymphocytes # (Auto) 2.4 x10^3/uL (1.0-4.8) Monocytes # (Auto) 1.0 x10^3/uL (0.0-1.1) Eosinophils # (Auto) 0.1 x10^3/uL (0.0-0.7) Basophils # (Auto) 0.1 x10^3/uL (0.0-0.2) Sodium Level 137 mmol/L (136-145) Potassium Level 3.6 mmol/L (3.5-5.1) Chloride Level 102 mmol/L (98-107) Carbon Dioxide Level 28 mmol/L (21-32) Anion Gap 7 (6-14) Blood Urea Nitrogen 9 mg/dL (7-20) Creatinine 1.0 mg/dL (0.6-1.0) Estimated GFR (Cockcroft-Gault) 54.5 Glucose Level 111 mg/dL (70-99) Calcium Level 8.9 mg/dL (8.5-10.1) Laboratory Tests Test 12/24/17 04:30 White Blood Count 6.6 x10^3/uL (4.0-11.0) Red Blood Count 4.07 x10^6/uL (3.50-5.40) Hemoglobin 11.4 g/dL (12.0-15.5) Hematocrit 35.3 % (36.0-47.0) Mean Corpuscular Volume 87 fL (79-100) Mean Corpuscular Hemoglobin 28 pg (25-35) Mean Corpuscular Hemoglobin Concent 33 g/dL (31-37) Red Cell Distribution Width 17.2 % (11.5-14.5) Platelet Count 474 x10^3/uL (140-400) Neutrophils (%) (Auto) 46 % (31-73) Lymphocytes (%) (Auto) 36 % (24-48) Monocytes (%) (Auto) 15 % (0-9) Eosinophils (%) (Auto) 2 % (0-3) Basophils (%) (Auto) 1 % (0-3) Neutrophils # (Auto) 3.1 x10^3uL (1.8-7.7) Lymphocytes # (Auto) 2.4 x10^3/uL (1.0-4.8) Monocytes # (Auto) 1.0 x10^3/uL (0.0-1.1) Eosinophils # (Auto) 0.1 x10^3/uL (0.0-0.7) Basophils # (Auto) 0.1 x10^3/uL (0.0-0.2) Sodium Level 137 mmol/L (136-145) Potassium Level 3.6 mmol/L (3.5-5.1) Chloride Level 102 mmol/L (98-107) Carbon Dioxide Level 28 mmol/L (21-32) Anion Gap 7 (6-14) Blood Urea Nitrogen 9 mg/dL (7-20) Creatinine 1.0 mg/dL (0.6-1.0) Estimated GFR (Cockcroft-Gault) 54.5 Glucose Level 111 mg/dL (70-99) Calcium Level 8.9 mg/dL (8.5-10.1) Problem List Problems Medical Problems: (1) Adynamic ileus Status: Acute (2) Constipation Status: Acute Assessment/Plan some improvement in xray having some bowel function trial clears today ABA MARI MD 12/24/17 1245: SURGICAL PROGRESS NOTE Assessment/Plan Patient overall feeling improved with small bowel movement abdomen is soft nondistended agree with Nicole assessment and plan starting clear liquids BRADLEY FRANCOIS APRN Dec 24, 2017 09:09 ABA MARI MD Dec 24, 2017 12:45
[2017-12-24] MEDS: PANTOPRAZOLE IV PUSH 40 MG VIAL. IVP SCH (09:24)
[2017-12-24] MEDS: FAMOTIDINE 20 MG/2 ML VIAL IVP SCH ×2 (09:24→21:13)
[2017-12-24] MEDS: GABAPENTIN 300 MG CAPSULE. PO SCH ×2 (09:24→11:27)
[2017-12-24] MEDS: buPROPion XL 150 MG TAB.ER.24H. PO SCH ×2 (09:24→11:27)
[2017-12-24] MEDS: LIDOCAINE (700MG/PATCH) PATCH. TP SCH ×2 (09:24→14:29)
[2017-12-24 11:00] VITALS: BP 132/77
--- NOTE | 2017-12-24 11:07 | PDOC ---
PULMONARY PROGRESS NOTES Subjective cough significantly improved with pulmicort Vitals Vital Signs Date Time Temp Pulse Resp B/P (MAP) Pulse Ox O2 Delivery O2 Flow Rate FiO2 12/24/17 07:49 95 Room Air 12/24/17 07:00 97.6 74 18 123/78 (93) 97.6 12/23/17 22:40 2.0 General: Alert, Oriented X4 Lungs: Clear Cardiovascular: S1, S2 Abdomen: Soft Extremities: No Edema Skin: Warm Labs Laboratory Tests Test 12/22/17 19:22 12/22/17 21:18 12/22/17 23:57 12/23/17 04:45 White Blood Count 7.5 x10^3/uL (4.0-11.0) 6.7 x10^3/uL (4.0-11.0) Red Blood Count 3.90 x10^6/uL (3.50-5.40) 3.65 x10^6/uL (3.50-5.40) Hemoglobin 11.1 g/dL (12.0-15.5) 10.2 g/dL (12.0-15.5) Hematocrit 33.6 % (36.0-47.0) 31.6 % (36.0-47.0) Mean Corpuscular Volume 86 fL (79-100) 87 fL (79-100) Mean Corpuscular Hemoglobin 29 pg (25-35) 28 pg (25-35) Mean Corpuscular Hemoglobin Concent 33 g/dL (31-37) 32 g/dL (31-37) Red Cell Distribution Width 17.7 % (11.5-14.5) 17.4 % (11.5-14.5) Platelet Count 478 x10^3/uL (140-400) 419 x10^3/uL (140-400) Neutrophils (%) (Auto) 53 % (31-73) 45 % (31-73) Lymphocytes (%) (Auto) 31 % (24-48) 37 % (24-48) Monocytes (%) (Auto) 14 % (0-9) 15 % (0-9) Eosinophils (%) (Auto) 1 % (0-3) 2 % (0-3) Basophils (%) (Auto) 1 % (0-3) 1 % (0-3) Neutrophils # (Auto) 4.0 x10^3uL (1.8-7.7) 3.0 x10^3uL (1.8-7.7) Lymphocytes # (Auto) 2.4 x10^3/uL (1.0-4.8) 2.5 x10^3/uL (1.0-4.8) Monocytes # (Auto) 1.0 x10^3/uL (0.0-1.1) 1.0 x10^3/uL (0.0-1.1) Eosinophils # (Auto) 0.0 x10^3/uL (0.0-0.7) 0.1 x10^3/uL (0.0-0.7) Basophils # (Auto) 0.1 x10^3/uL (0.0-0.2) 0.0 x10^3/uL (0.0-0.2) Sodium Level 135 mmol/L (136-145) 141 mmol/L (136-145) Potassium Level 3.5 mmol/L (3.5-5.1) 3.9 mmol/L (3.5-5.1) Chloride Level 105 mmol/L (98-107) 107 mmol/L (98-107) Carbon Dioxide Level 26 mmol/L (21-32) 26 mmol/L (21-32) Anion Gap 4 (6-14) 8 (6-14) Blood Urea Nitrogen 11 mg/dL (7-20) 10 mg/dL (7-20) Creatinine 0.9 mg/dL (0.6-1.0) 0.8 mg/dL (0.6-1.0) Estimated GFR (Cockcroft-Gault) 61.5 70.5 BUN/Creatinine Ratio 12 (6-20) Glucose Level 129 mg/dL (70-99) 104 mg/dL (70-99) Calcium Level 9.1 mg/dL (8.5-10.1) 8.0 mg/dL (8.5-10.1) Total Bilirubin 0.4 mg/dL (0.2-1.0) Aspartate Amino Transf (AST/SGOT) 29 U/L (15-37) Alanine Aminotransferase (ALT/SGPT) 27 U/L (14-59) Alkaline Phosphatase 119 U/L (46-116) Troponin I Quantitative < 0.017 ng/mL (0.000-0.055) Total Protein 7.1 g/dL (6.4-8.2) Albumin 3.0 g/dL (3.4-5.0) Albumin/Globulin Ratio 0.7 (1.0-1.7) Lipase 57 U/L (73-393) Ethyl Alcohol Level < 10 mg/dL (0-10) Urine Collection Type Unknown Urine Color Yellow Urine Clarity Clear Urine pH 7.0 Urine Specific [place] 1.010 Urine Protein Negative mg/dL (NEG-TRACE) Urine Glucose (UA) Negative mg/dL (NEG) Urine Ketones (Stick) Negative mg/dL (NEG) Urine Blood Negative (NEG) Urine Nitrite Negative (NEG) Urine Bilirubin Negative (NEG) Urine Urobilinogen Dipstick 1.0 mg/dL (0.2 mg/dL) Urine Leukocyte Esterase Trace (NEG) Urine RBC Occ /HPF (0-2) Urine WBC 5-10 /HPF (0-4) Urine Squamous Epithelial Cells Mod /LPF Urine Bacteria 0 /HPF (0-FEW) Urine Mucus Slight /LPF Urine Opiates Screen Pos (NEG) Urine Methadone Screen Neg (NEG) Urine Barbiturates Neg (NEG) Urine Phencyclidine Screen Neg (NEG) Urine Amphetamine/Methamphetamine Neg (NEG) Urine Benzodiazepines Screen Neg (NEG) Urine Cocaine Screen Neg (NEG) Urine Cannabinoids Screen Neg (NEG) Urine Ethyl Alcohol Neg (NEG) Nasal Screen MRSA (PCR) Negative (Negative) Test 12/24/17 04:30 White Blood Count 6.6 x10^3/uL (4.0-11.0) Red Blood Count 4.07 x10^6/uL (3.50-5.40) Hemoglobin 11.4 g/dL (12.0-15.5) Hematocrit 35.3 % (36.0-47.0) Mean Corpuscular Volume 87 fL (79-100) Mean Corpuscular Hemoglobin 28 pg (25-35) Mean Corpuscular Hemoglobin Concent 33 g/dL (31-37) Red Cell Distribution Width 17.2 % (11.5-14.5) Platelet Count 474 x10^3/uL (140-400) Neutrophils (%) (Auto) 46 % (31-73) Lymphocytes (%) (Auto) 36 % (24-48) Monocytes (%) (Auto) 15 % (0-9) Eosinophils (%) (Auto) 2 % (0-3) Basophils (%) (Auto) 1 % (0-3) Neutrophils # (Auto) 3.1 x10^3uL (1.8-7.7) Lymphocytes # (Auto) 2.4 x10^3/uL (1.0-4.8) Monocytes # (Auto) 1.0 x10^3/uL (0.0-1.1) Eosinophils # (Auto) 0.1 x10^3/uL (0.0-0.7) Basophils # (Auto) 0.1 x10^3/uL (0.0-0.2) Sodium Level 137 mmol/L (136-145) Potassium Level 3.6 mmol/L (3.5-5.1) Chloride Level 102 mmol/L (98-107) Carbon Dioxide Level 28 mmol/L (21-32) Anion Gap 7 (6-14) Blood Urea Nitrogen 9 mg/dL (7-20) Creatinine 1.0 mg/dL (0.6-1.0) Estimated GFR (Cockcroft-Gault) 54.5 Glucose Level 111 mg/dL (70-99) Calcium Level 8.9 mg/dL (8.5-10.1) Laboratory Tests Test 12/24/17 04:30 White Blood Count 6.6 x10^3/uL (4.0-11.0) Red Blood Count 4.07 x10^6/uL (3.50-5.40) Hemoglobin 11.4 g/dL (12.0-15.5) Hematocrit 35.3 % (36.0-47.0) Mean Corpuscular Volume 87 fL (79-100) Mean Corpuscular Hemoglobin 28 pg (25-35) Mean Corpuscular Hemoglobin Concent 33 g/dL (31-37) Red Cell Distribution Width 17.2 % (11.5-14.5) Platelet Count 474 x10^3/uL (140-400) Neutrophils (%) (Auto) 46 % (31-73) Lymphocytes (%) (Auto) 36 % (24-48) Monocytes (%) (Auto) 15 % (0-9) Eosinophils (%) (Auto) 2 % (0-3) Basophils (%) (Auto) 1 % (0-3) Neutrophils # (Auto) 3.1 x10^3uL (1.8-7.7) Lymphocytes # (Auto) 2.4 x10^3/uL (1.0-4.8) Monocytes # (Auto) 1.0 x10^3/uL (0.0-1.1) Eosinophils # (Auto) 0.1 x10^3/uL (0.0-0.7) Basophils # (Auto) 0.1 x10^3/uL (0.0-0.2) Sodium Level 137 mmol/L (136-145) Potassium Level 3.6 mmol/L (3.5-5.1) Chloride Level 102 mmol/L (98-107) Carbon Dioxide Level 28 mmol/L (21-32) Anion Gap 7 (6-14) Blood Urea Nitrogen 9 mg/dL (7-20) Creatinine 1.0 mg/dL (0.6-1.0) Estimated GFR (Cockcroft-Gault) 54.5 Glucose Level 111 mg/dL (70-99) Calcium Level 8.9 mg/dL (8.5-10.1) Medications Active Scripts Medications Dose Route/Sig Max Daily Dose Days Date Category Dose Instructions Cyclobenzaprine Hcl 10 Mg Tablet 1 Tab PO DAILY 12/23/17 Reported Nystatin 15 Gm Cream..g. 1 Sara TP QID 12/23/17 Reported apply to abdominal folds and groin [lidoerm 5%] 1 Patch TP DAILY 12/23/17 Reported apply to left lateral knee [lidoderm 5%] 1 Patch TOP DAILY 12/23/17 Reported [lidoderm] 12/23/17 Reported Lovenox (Enoxaparin Sodium) 40 Mg/0.4 Ml Disp.syrin 0.4 Ml SQ DAILY 12/23/17 Reported Oxybutynin Chloride 5 Mg Tablet 1 Tab PO BID 12/23/17 Reported [domperidone] 20 Mg PO TID 12/23/17 Reported Tums (Calcium Carbonate) 200 Mg Tab.chew 200 Mg PO PRN QID PRN 12/23/17 Reported Vitamin D3 (Cholecalciferol (Vitamin D3)) 1,000 Unit Tablet 2,000 Unit PO DAILY 12/23/17 Reported Multivitamins (Multivitamin) 1 Each Tablet 1 Tab PO DAILY 12/23/17 Reported Protonix (Pantoprazole Sodium) 20 Mg Tablet.dr 40 Mg PO DAILY 12/23/17 Reported Senna Plus Tablet (Sennosides/Docusate Sodium) 1 Each Tablet 1 Each PO DAILY 12/23/17 Reported [dulcolax] 10 Mg AK PRN DAILY PRN 12/23/17 Reported Xanax (Alprazolam) 0.5 Mg Tablet 0.5 Mg PO PRN Q8HRS PRN 12/23/17 Reported Melatonin 3 Mg Tablet 10 Mg PO QHS 10/30/17 Reported Colestipol Hcl 1 Gm Tablet 1 Gm PO PRN TID PRN 04/28/17 Reported Mucinex (Guaifenesin) 600 Mg Tablet.er 1 Tab PO BID PRN 12/21/16 Reported Levothyroxine Sodium 50 Mcg Tablet 1 Tab PO DAILY 12/21/16 Reported Vitamin D (Cholecalciferol (Vitamin D3)) 2,000 Unit Capsule 2,000 Unit PO TID 11/18/16 Reported Fioricet 50-300-40 Mg Capsule (Butalb/Acetaminophen/Caffeine) 1 Each Capsule 1 Each PO PRN Q4HRS PRN 03/16/16 Reported Gabapentin 100 Mg Capsule 300 Mg PO DAILY 03/01/16 Reported [Clonidine/Pump] 05/04/15 Reported Bupivacaine 0.25% On-Q Pump (Bupivacaine Hcl/Pf) 100 Ml Els[email or web address] 100 Ml IJ PER PAIN PUMP 06/27/13 Reported Alprazolam 0.5 Mg Tab.rapdis 0.5 Mg PO DAILY 06/27/13 Reported Zofran Odt (Ondansetron) 8 Mg Tab.rapdis 8 Mg PO PRN Q8HRS PRN 06/27/13 Reported Risperdal (Risperidone) 0.5 Mg Tablet 0.5 Mg PO HS 06/27/13 Reported Zocor (Simvastatin) 20 Mg Tablet 20 Mg PO HS 06/27/13 Reported Wellbutrin (Bupropion Hcl) 100 Mg Tablet 150 Mg PO DAILY 06/27/13 Reported Impression . 1. Chronic persistent cough for almost 1 year. It is present day and night. The cough can be multifactorial and includes a combination of acid reflux/post nasal drip and likely cough variant Asthma. Significantly resolved after adding pulmicort Nebs she has a history of gastroparesis since her fundoplication surgery many years ago. She also has postnasal drainage, which is another contributing factor. The patient was born prematurely, but there were no history of recurrent infections growing as a child. The patient also used to have parrots for about 10-15 years, but she let them go 20 years ago and clinically less likely hypersensitivity pneumonitis. 2. No significant history of tobacco use. 3. Recent admission for ileus. Plan . 1. No sig. abnormality on noncontrast CT / Response to steroid Nebs highly suggest Cough manifestation of asthma. 2. Would recommend treatment for postnasal drainage and acid reflux. Continue with PPI for now. 3. Trial of a steroid inhaler flovent as OP post DARNELL Gilman MD Dec 24, 2017 11:07
[2017-12-24] MEDS: FLUTICASONE 50MCG/NASAL SPRAY 16GM BOTTLE. NS SCH (11:27)
[2017-12-24] MEDS: CHOLECALCIFEROL (VITAMIN D3) 1,000 UNIT TABLET PO SCH (11:27)
[2017-12-24] MEDS: traMADol 50 MG TABLET PO PRN (12:54)
--- NOTE | 2017-12-24 14:13 | PDOC ---
PROGRESS NOTES Chief Complaint Chief Complaint abd pain with partial SBO h/o multiple abd sx with hernia repair GERD gastroparesis with chronic abd pain anxiety morbid obesity hypothyroidism plan: sx consult, no sx for now, clear liquid today ivf pulm consult for chronic cough cont some po home meds dvt, gi ppx History of Present Illness History of Present Illness ROS: no fever, chills, sob, chest pain abd pain better, small bm today mild dementia, not remember when was last time BM before today ok take tramadol, lortab, not oxycodone KUB BETTER Vitals Vitals Vital Signs Date Time Temp Pulse Resp B/P (MAP) Pulse Ox O2 Delivery O2 Flow Rate FiO2 12/24/17 12:54 18 91 Room Air 12/24/17 11:00 98.6 80 132/77 (95) 98.6 12/23/17 22:40 2.0 Physical Exam General: Alert, Oriented X3, Cooperative, No acute distress Heart: Regular rate, Normal S1, Normal S2, No murmurs Lungs: Clear Abdomen: Soft, No tenderness, Other (deminished bs) Extremities: No clubbing, No cyanosis Skin: No rashes, No breakdown Labs LABS Laboratory Tests Test 12/24/17 04:30 White Blood Count 6.6 x10^3/uL (4.0-11.0) Red Blood Count 4.07 x10^6/uL (3.50-5.40) Hemoglobin 11.4 g/dL (12.0-15.5) Hematocrit 35.3 % (36.0-47.0) Mean Corpuscular Volume 87 fL (79-100) Mean Corpuscular Hemoglobin 28 pg (25-35) Mean Corpuscular Hemoglobin Concent 33 g/dL (31-37) Red Cell Distribution Width 17.2 % (11.5-14.5) Platelet Count 474 x10^3/uL (140-400) Neutrophils (%) (Auto) 46 % (31-73) Lymphocytes (%) (Auto) 36 % (24-48) Monocytes (%) (Auto) 15 % (0-9) Eosinophils (%) (Auto) 2 % (0-3) Basophils (%) (Auto) 1 % (0-3) Neutrophils # (Auto) 3.1 x10^3uL (1.8-7.7) Lymphocytes # (Auto) 2.4 x10^3/uL (1.0-4.8) Monocytes # (Auto) 1.0 x10^3/uL (0.0-1.1) Eosinophils # (Auto) 0.1 x10^3/uL (0.0-0.7) Basophils # (Auto) 0.1 x10^3/uL (0.0-0.2) Sodium Level 137 mmol/L (136-145) Potassium Level 3.6 mmol/L (3.5-5.1) Chloride Level 102 mmol/L (98-107) Carbon Dioxide Level 28 mmol/L (21-32) Anion Gap 7 (6-14) Blood Urea Nitrogen 9 mg/dL (7-20) Creatinine 1.0 mg/dL (0.6-1.0) Estimated GFR (Cockcroft-Gault) 54.5 Glucose Level 111 mg/dL (70-99) Calcium Level 8.9 mg/dL (8.5-10.1) Assessment and Plan Assessmemt and Plan Problems Medical Problems: (1) Adynamic ileus Status: Acute (2) Constipation Status: Acute Comment Review of Relevant I have reviewed the following items néstor (where applicable) has been applied. Labs Laboratory Tests Test 12/22/17 19:22 12/22/17 21:18 12/22/17 23:57 12/23/17 04:45 White Blood Count 7.5 x10^3/uL (4.0-11.0) 6.7 x10^3/uL (4.0-11.0) Red Blood Count 3.90 x10^6/uL (3.50-5.40) 3.65 x10^6/uL (3.50-5.40) Hemoglobin 11.1 g/dL (12.0-15.5) 10.2 g/dL (12.0-15.5) Hematocrit 33.6 % (36.0-47.0) 31.6 % (36.0-47.0) Mean Corpuscular Volume 86 fL (79-100) 87 fL (79-100) Mean Corpuscular Hemoglobin 29 pg (25-35) 28 pg (25-35) Mean Corpuscular Hemoglobin Concent 33 g/dL (31-37) 32 g/dL (31-37) Red Cell Distribution Width 17.7 % (11.5-14.5) 17.4 % (11.5-14.5) Platelet Count 478 x10^3/uL (140-400) 419 x10^3/uL (140-400) Neutrophils (%) (Auto) 53 % (31-73) 45 % (31-73) Lymphocytes (%) (Auto) 31 % (24-48) 37 % (24-48) Monocytes (%) (Auto) 14 % (0-9) 15 % (0-9) Eosinophils (%) (Auto) 1 % (0-3) 2 % (0-3) Basophils (%) (Auto) 1 % (0-3) 1 % (0-3) Neutrophils # (Auto) 4.0 x10^3uL (1.8-7.7) 3.0 x10^3uL (1.8-7.7) Lymphocytes # (Auto) 2.4 x10^3/uL (1.0-4.8) 2.5 x10^3/uL (1.0-4.8) Monocytes # (Auto) 1.0 x10^3/uL (0.0-1.1) 1.0 x10^3/uL (0.0-1.1) Eosinophils # (Auto) 0.0 x10^3/uL (0.0-0.7) 0.1 x10^3/uL (0.0-0.7) Basophils # (Auto) 0.1 x10^3/uL (0.0-0.2) 0.0 x10^3/uL (0.0-0.2) Sodium Level 135 mmol/L (136-145) 141 mmol/L (136-145) Potassium Level 3.5 mmol/L (3.5-5.1) 3.9 mmol/L (3.5-5.1) Chloride Level 105 mmol/L (98-107) 107 mmol/L (98-107) Carbon Dioxide Level 26 mmol/L (21-32) 26 mmol/L (21-32) Anion Gap 4 (6-14) 8 (6-14) Blood Urea Nitrogen 11 mg/dL (7-20) 10 mg/dL (7-20) Creatinine 0.9 mg/dL (0.6-1.0) 0.8 mg/dL (0.6-1.0) Estimated GFR (Cockcroft-Gault) 61.5 70.5 BUN/Creatinine Ratio 12 (6-20) Glucose Level 129 mg/dL (70-99) 104 mg/dL (70-99) Calcium Level 9.1 mg/dL (8.5-10.1) 8.0 mg/dL (8.5-10.1) Total Bilirubin 0.4 mg/dL (0.2-1.0) Aspartate Amino Transf (AST/SGOT) 29 U/L (15-37) Alanine Aminotransferase (ALT/SGPT) 27 U/L (14-59) Alkaline Phosphatase 119 U/L (46-116) Troponin I Quantitative < 0.017 ng/mL (0.000-0.055) Total Protein 7.1 g/dL (6.4-8.2) Albumin 3.0 g/dL (3.4-5.0) Albumin/Globulin Ratio 0.7 (1.0-1.7) Lipase 57 U/L (73-393) Ethyl Alcohol Level < 10 mg/dL (0-10) Urine Collection Type Unknown Urine Color Yellow Urine Clarity Clear Urine pH 7.0 Urine Specific [place] 1.010 Urine Protein Negative mg/dL (NEG-TRACE) Urine Glucose (UA) Negative mg/dL (NEG) Urine Ketones (Stick) Negative mg/dL (NEG) Urine Blood Negative (NEG) Urine Nitrite Negative (NEG) Urine Bilirubin Negative (NEG) Urine Urobilinogen Dipstick 1.0 mg/dL (0.2 mg/dL) Urine Leukocyte Esterase Trace (NEG) Urine RBC Occ /HPF (0-2) Urine WBC 5-10 /HPF (0-4) Urine Squamous Epithelial Cells Mod /LPF Urine Bacteria 0 /HPF (0-FEW) Urine Mucus Slight /LPF Urine Opiates Screen Pos (NEG) Urine Methadone Screen Neg (NEG) Urine Barbiturates Neg (NEG) Urine Phencyclidine Screen Neg (NEG) Urine Amphetamine/Methamphetamine Neg (NEG) Urine Benzodiazepines Screen Neg (NEG) Urine Cocaine Screen Neg (NEG) Urine Cannabinoids Screen Neg (NEG) Urine Ethyl Alcohol Neg (NEG) Nasal Screen MRSA (PCR) Negative (Negative) Test 12/24/17 04:30 White Blood Count 6.6 x10^3/uL (4.0-11.0) Red Blood Count 4.07 x10^6/uL (3.50-5.40) Hemoglobin 11.4 g/dL (12.0-15.5) Hematocrit 35.3 % (36.0-47.0) Mean Corpuscular Volume 87 fL (79-100) Mean Corpuscular Hemoglobin 28 pg (25-35) Mean Corpuscular Hemoglobin Concent 33 g/dL (31-37) Red Cell Distribution Width 17.2 % (11.5-14.5) Platelet Count 474 x10^3/uL (140-400) Neutrophils (%) (Auto) 46 % (31-73) Lymphocytes (%) (Auto) 36 % (24-48) Monocytes (%) (Auto) 15 % (0-9) Eosinophils (%) (Auto) 2 % (0-3) Basophils (%) (Auto) 1 % (0-3) Neutrophils # (Auto) 3.1 x10^3uL (1.8-7.7) Lymphocytes # (Auto) 2.4 x10^3/uL (1.0-4.8) Monocytes # (Auto) 1.0 x10^3/uL (0.0-1.1) Eosinophils # (Auto) 0.1 x10^3/uL (0.0-0.7) Basophils # (Auto) 0.1 x10^3/uL (0.0-0.2) Sodium Level 137 mmol/L (136-145) Potassium Level 3.6 mmol/L (3.5-5.1) Chloride Level 102 mmol/L (98-107) Carbon Dioxide Level 28 mmol/L (21-32) Anion Gap 7 (6-14) Blood Urea Nitrogen 9 mg/dL (7-20) Creatinine 1.0 mg/dL (0.6-1.0) Estimated GFR (Cockcroft-Gault) 54.5 Glucose Level 111 mg/dL (70-99) Calcium Level 8.9 mg/dL (8.5-10.1) Laboratory Tests Test 12/24/17 04:30 White Blood Count 6.6 x10^3/uL (4.0-11.0) Red Blood Count 4.07 x10^6/uL (3.50-5.40) Hemoglobin 11.4 g/dL (12.0-15.5) Hematocrit 35.3 % (36.0-47.0) Mean Corpuscular Volume 87 fL (79-100) Mean Corpuscular Hemoglobin 28 pg (25-35) Mean Corpuscular Hemoglobin Concent 33 g/dL (31-37) Red Cell Distribution Width 17.2 % (11.5-14.5) Platelet Count 474 x10^3/uL (140-400) Neutrophils (%) (Auto) 46 % (31-73) Lymphocytes (%) (Auto) 36 % (24-48) Monocytes (%) (Auto) 15 % (0-9) Eosinophils (%) (Auto) 2 % (0-3) Basophils (%) (Auto) 1 % (0-3) Neutrophils # (Auto) 3.1 x10^3uL (1.8-7.7) Lymphocytes # (Auto) 2.4 x10^3/uL (1.0-4.8) Monocytes # (Auto) 1.0 x10^3/uL (0.0-1.1) Eosinophils # (Auto) 0.1 x10^3/uL (0.0-0.7) Basophils # (Auto) 0.1 x10^3/uL (0.0-0.2) Sodium Level 137 mmol/L (136-145) Potassium Level 3.6 mmol/L (3.5-5.1) Chloride Level 102 mmol/L (98-107) Carbon Dioxide Level 28 mmol/L (21-32) Anion Gap 7 (6-14) Blood Urea Nitrogen 9 mg/dL (7-20) Creatinine 1.0 mg/dL (0.6-1.0) Estimated GFR (Cockcroft-Gault) 54.5 Glucose Level 111 mg/dL (70-99) Calcium Level 8.9 mg/dL (8.5-10.1) Medications Current Medications Sodium Chloride 1,000 ml @ 1,000 mls/hr 1X ONCE IV Last administered on at 19:57; Start 12/22/17 at 19:15; Stop 12/22/17 at 20:14; Status DC Pantoprazole Sodium (PROTONIX VIAL for IV PUSH) 40 mg 1X ONCE IVP Last administered on 12/22/17at 20:07; Start 12/22/17 at 19:30; Stop 12/22/17 at 19:31 ; Status DC Ondansetron HCl (Zofran) 4 mg 1X ONCE IV ; Start 12/22/17 at 19:30; Stop at 19:31; Status DC Fentanyl Citrate (Fentanyl 2ml Vial) 50 mcg 1X ONCE IV Last administered on at 20:02; Start 12/22/17 at 19:30; Stop 12/22/17 at 19:31; Status DC Iohexol (Omnipaque 300 Mg/ml) 100 ml 1X ONCE IV Last administered on at 21:45; Start 12/22/17 at 21:45; Stop 12/22/17 at 21:46; Status DC Info (CONTRAST GIVEN -- Rx MONITORING) 1 each PRN DAILY PRN MC SEE COMMENTS; Start 12/22/17 at 21:45; Stop 12/24/17 at 21:44 Ondansetron HCl (Zofran) 4 mg PRN Q8HRS PRN IV NAUSEA/VOMITING; Start 12/22/17 at 22:15; Stop 12/23/17 at 14:03; Status DC Fentanyl Citrate (Fentanyl 2ml Vial) 50 mcg PRN Q2HR PRN IV PAIN Last administered on 12/23/17at 21:07; Start 12/22/17 at 22:15; Stop 12/23/17 at 22:14 ; Status DC Pantoprazole Sodium (PROTONIX VIAL for IV PUSH) 40 mg DAILY IVP Last administered on 12/23/17at 09:24; Start 12/23/17 at 09:00; Stop 12/23/17 at 11:08 ; Status DC Sodium Chloride 1,000 ml @ 125 mls/hr 1X ONCE IV Last administered on at 00:15; Start 12/22/17 at 22:15; Stop 12/23/17 at 06:14; Status DC Pharmacy Consult (C.diff Med Screen By Rx) 1 each 1X ONCE MC ; Start 12/23/17 at 09:00; Stop 12/23/17 at 09:01; Status Cancel Enoxaparin Sodium (Lovenox 40mg Syringe) 40 mg DAILY SQ Last administered on 09:23; Start 12/23/17 at 09:00; Stop 12/23/17 at 14:54; Status DC Nystatin (Mycostatin) 1 sara QID TP Last administered on 12/24/17at 12:54; Start 12/23/17 at 09:00 Lidocaine (Lidoderm) 1 patch DAILY TP Last administered on 12/23/17 09:23; Start 12/23/17 at 09:00 Budesonide (Pulmicort) 0.5 mg RTBID NEB Last administered on 12/24/17 07:48; Start 12/23/17 at 20:00 Fluticasone Propionate (Flonase) 2 spray DAILY NS Last administered on 11:27; Start 12/23/17 at 11:00 Famotidine (Pepcid Vial) 20 mg BID IVP Last administered on 12/24/17 09:24; Start 12/23/17 at 21:00 Alprazolam (Xanax) 0.5 mg PRN Q8HRS PRN PO ANXIETY / AGITATION; Start 12/23/17 at 11:30; Stop 12/23/17 at 17:43; Status DC Bupropion HCl (Wellbutrin Xl) 150 mg DAILY PO Last administered on 12/24/17at 11 :27; Start 12/23/17 at 12:00 Calcium Carbonate/ Glycine (Tums) 500 mg PRN QID PRN PO HEARTBURN / GAS; Start 12/23/17 at 11:30 Vitamin D (Vitamin D3) 2,000 unit DAILY PO Last administered on 12/24/17at 11:27 ; Start 12/23/17 at 12:00 Colestipol HCl (Colestid) 1 gm PRN TID PRN PO DIARRHEA; Start 12/23/17 at 11:30 Gabapentin (Neurontin) 300 mg DAILY PO Last administered on 12/24/17at 11:27; Start 12/23/17 at 12:00 Levothyroxine Sodium (Synthroid) 50 mcg DAILY07 PO Last administered on at 06:01; Start 12/23/17 at 12:00 Risperidone (RisperDAL) 0.5 mg QHS PO ; Start 12/23/17 at 21:00; Stop 12/23/17 at 21:00; Status DC Simvastatin (Zocor) 20 mg HS PO Last administered on 12/23/17at 21:12; Start at 21:00 Amino Acids/ Glycerin/ Electrolytes 1,000 ml @ 80 mls/hr [id number] IV Last administered on 12/24/17at 12:56; Start 12/23/17 at 11:45 Acetaminophen (Tylenol) 650 mg PRN Q6HRS PRN PO FEVER Last administered on 12/23at 22:17; Start 12/23/17 at 11:45 Ondansetron HCl (Zofran) 4 mg PRN Q6HRS PRN IV NAUSEA/VOMITING; Start 12/23/17 at 11:45 Docusate Sodium (Colace) 100 mg PRN DAILY PRN PO CONSTIPATION; Start 12/23/17 at 11:45 Pantoprazole Sodium (PROTONIX VIAL for IV PUSH) 40 mg DAILYAC IVP Last administered on 12/24/17at 09:24; Start 12/24/17 at 07:30 Heparin Sodium (Porcine) (Heparin Sq) 5,000 unit Q8HRS SQ Last administered on 12/24/17at 06:01; Start 12/23/17 at 22:00 Albuterol Sulfate (Ventolin Neb Soln) 2.5 mg PRN Q4HRS PRN NEB SHORTNESS OF BREATH; Start 12/23/17 at 15:00 Zolpidem Tartrate (Ambien) 5 mg PRN QHS PRN PO INSOMNIA Last administered on at 00:53; Start 12/24/17 at 00:45 Fentanyl Citrate (Fentanyl 2ml Vial) 50 mcg PRN Q2HR PRN IV PAIN Last administered on 12/24/17at 03:26; Start 12/24/17 at 02:45 Acetaminophen/ Hydrocodone Bitart (Lortab 5/325) 1 tab PRN Q4HRS PRN PO PAIN; Start 12/24/17 at 02:45; Stop 12/24/17 at 02:45; Status DC Acetaminophen/ Hydrocodone Bitart (Lortab 5/325) 2 tab PRN Q4HRS PRN PO PAIN; Start 12/24/17 at 02:45; Stop 12/24/17 at 02:45; Status DC Tramadol HCl (Ultram) 50 mg PRN Q6HRS PRN PO MILD PAIN Last administered on at 12:54; Start 12/24/17 at 12:00 Active Scripts Active Reported Cyclobenzaprine Hcl 10 Mg Tablet 1 Tab PO DAILY Nystatin 15 Gm Cream..g. 1 Sara TP QID apply to abdominal folds and groin [lidoerm 5%] 1 Patch TP DAILY apply to left lateral knee [lidoderm 5%] 1 Patch TOP DAILY [lidoderm] Lovenox (Enoxaparin Sodium) 40 Mg/0.4 Ml Disp.syrin 0.4 Ml SQ DAILY Oxybutynin Chloride 5 Mg Tablet 1 Tab PO BID [domperidone] 20 Mg PO TID Tums (Calcium Carbonate) 200 Mg Tab.chew 200 Mg PO PRN QID PRN Vitamin D3 (Cholecalciferol (Vitamin D3)) 1,000 Unit Tablet 2,000 Unit PO DAILY Multivitamins (Multivitamin) 1 Each Tablet 1 Tab PO DAILY Protonix (Pantoprazole Sodium) 20 Mg Tablet.dr 40 Mg PO DAILY Senna Plus Tablet (Sennosides/Docusate Sodium) 1 Each Tablet 1 Each PO DAILY [dulcolax] 10 Mg MA PRN DAILY PRN Xanax (Alprazolam) 0.5 Mg Tablet 0.5 Mg PO PRN Q8HRS PRN Melatonin 3 Mg Tablet 10 Mg PO QHS Colestipol Hcl 1 Gm Tablet 1 Gm PO PRN TID PRN Mucinex (Guaifenesin) 600 Mg Tablet.er 1 Tab PO BID PRN Levothyroxine Sodium 50 Mcg Tablet 1 Tab PO DAILY Vitamin D (Cholecalciferol (Vitamin D3)) 2,000 Unit Capsule 2,000 Unit PO TID Fioricet 50-300-40 Mg Capsule (Butalb/Acetaminophen/Caffeine) 1 Each Capsule 1 Each PO PRN Q4HRS PRN Gabapentin 100 Mg Capsule 300 Mg PO DAILY [Clonidine/Pump] Bupivacaine 0.25% On-Q Pump (Bupivacaine Hcl/Pf) 100 Ml Els.side seam tender.fr 100 Ml IJ PER PAIN PUMP Alprazolam 0.5 Mg Tab.rapdis 0.5 Mg PO DAILY Zofran Odt (Ondansetron) 8 Mg Tab.rapdis 8 Mg PO PRN Q8HRS PRN Risperdal (Risperidone) 0.5 Mg Tablet 0.5 Mg PO HS Zocor (Simvastatin) 20 Mg Tablet 20 Mg PO HS Wellbutrin (Bupropion Hcl) 100 Mg Tablet 150 Mg PO DAILY Vitals/I & O Vital Sign - Last 24 Hours 12/23/17 12/23/17 12/23/17 12/23/17 14:19 15:00 16:39 19:00 Temp 97.8 98.7 97.8 98.7 Pulse 79 73 Resp 18 16 16 18 B/P (MAP) 121/72 (88) 116/74 (88) Pulse Ox 81 81 92 O2 Delivery Nasal Cannula Room Air Nasal Cannula Room Air O2 Flow Rate 2.0 12/23/17 12/23/17 12/23/17 12/23/17 20:00 21:07 21:50 22:40 Temp 98.5 98.5 Pulse 61 Resp 16 16 18 B/P (MAP) 107/67 (80) Pulse Ox 91 O2 Delivery Room Air Room Air Room Air Room Air O2 Flow Rate 2.0 12/24/17 12/24/17 12/24/17 12/24/17 02:50 03:26 04:06 07:00 Temp 97.7 97.6 97.7 97.6 Pulse 80 74 Resp 18 18 18 18 B/P (MAP) 139/92 (108) 123/78 (93) Pulse Ox 91 97 O2 Delivery Room Air Room Air Room Air Room Air 12/24/17 12/24/17 12/24/17 07:49 11:00 12:54 Temp 98.6 98.6 Pulse 80 Resp 18 18 B/P (MAP) 132/77 (95) Pulse Ox 95 91 91 O2 Delivery Room Air Room Air Room Air Intake and Output 12/23/17 12/23/17 12/24/17 15:00 23:00 07:00 Intake Total 250 ml Output Total 5 ml 0 ml Balance 245 ml 0 ml ANTONY SHANNON MD Dec 24, 2017 14:13
[2017-12-24 15:00] VITALS: BP 116/67
[2017-12-24 19:00] VITALS: BP 125/76
[2017-12-24] MEDS: SIMVASTATIN 20 MG TABLET PO SCH (21:13)
[2017-12-24 22:54] VITALS: BP 126/79
[2017-12-25 03:00] VITALS: BP 154/87
[2017-12-25] MEDS: HEPARIN PF for SUB-Q USE 5,000 UNIT/0.5 ML VIAL. SQ SCH ×3 (05:42→20:56)
[2017-12-25] MEDS: ONDANSETRON PF 4 MG/2 ML VIAL. IV PRN ×2 (05:52→12:53)
[2017-12-25 07:00] VITALS: BP 123/70
[2017-12-25] MEDS: BUDESONIDE 0.5 MG/2 ML NEBU. NEB SCH ×2 (07:21→19:42)
[2017-12-25] MEDS: LEVOTHYROXINE 50 MCG TABLET PO SCH (08:09)
[2017-12-25] MEDS: PANTOPRAZOLE IV PUSH 40 MG VIAL. IVP SCH (08:09)
[2017-12-25] MEDS: FLUTICASONE 50MCG/NASAL SPRAY 16GM BOTTLE. NS SCH (08:15)
[2017-12-25] MEDS: LIDOCAINE (700MG/PATCH) PATCH. TP SCH (08:15)
[2017-12-25] MEDS: NYSTATIN 100,000 UNIT/GM TOPICAL CREAM 15GM TUBE. TP SCH ×4 (08:16→20:56)
[2017-12-25] MEDS: FAMOTIDINE 20 MG/2 ML VIAL IVP SCH ×2 (08:16→20:55)
--- NOTE | 2017-12-25 09:09 | PDOC ---
PULMONARY PROGRESS NOTES Subjective cough is better Vitals Vital Signs Date Time Temp Pulse Resp B/P (MAP) Pulse Ox O2 Delivery O2 Flow Rate FiO2 12/25/17 07:23 91 Room Air 12/25/17 07:00 98.1 71 18 123/70 (87) 98.1 General: Alert, Oriented X4 Lungs: Clear Cardiovascular: S1, S2 Abdomen: Soft Extremities: No Edema Skin: Warm Labs Laboratory Tests Test 12/24/17 04:30 White Blood Count 6.6 x10^3/uL (4.0-11.0) Red Blood Count 4.07 x10^6/uL (3.50-5.40) Hemoglobin 11.4 g/dL (12.0-15.5) Hematocrit 35.3 % (36.0-47.0) Mean Corpuscular Volume 87 fL (79-100) Mean Corpuscular Hemoglobin 28 pg (25-35) Mean Corpuscular Hemoglobin Concent 33 g/dL (31-37) Red Cell Distribution Width 17.2 % (11.5-14.5) Platelet Count 474 x10^3/uL (140-400) Neutrophils (%) (Auto) 46 % (31-73) Lymphocytes (%) (Auto) 36 % (24-48) Monocytes (%) (Auto) 15 % (0-9) Eosinophils (%) (Auto) 2 % (0-3) Basophils (%) (Auto) 1 % (0-3) Neutrophils # (Auto) 3.1 x10^3uL (1.8-7.7) Lymphocytes # (Auto) 2.4 x10^3/uL (1.0-4.8) Monocytes # (Auto) 1.0 x10^3/uL (0.0-1.1) Eosinophils # (Auto) 0.1 x10^3/uL (0.0-0.7) Basophils # (Auto) 0.1 x10^3/uL (0.0-0.2) Sodium Level 137 mmol/L (136-145) Potassium Level 3.6 mmol/L (3.5-5.1) Chloride Level 102 mmol/L (98-107) Carbon Dioxide Level 28 mmol/L (21-32) Anion Gap 7 (6-14) Blood Urea Nitrogen 9 mg/dL (7-20) Creatinine 1.0 mg/dL (0.6-1.0) Estimated GFR (Cockcroft-Gault) 54.5 Glucose Level 111 mg/dL (70-99) Calcium Level 8.9 mg/dL (8.5-10.1) Medications Active Scripts Medications Dose Route/Sig Max Daily Dose Days Date Category Dose Instructions Cyclobenzaprine Hcl 10 Mg Tablet 1 Tab PO DAILY 12/23/17 Reported Nystatin 15 Gm Cream..g. 1 Sara TP QID 12/23/17 Reported apply to abdominal folds and groin [lidoerm 5%] 1 Patch TP DAILY 12/23/17 Reported apply to left lateral knee [lidoderm 5%] 1 Patch TOP DAILY 12/23/17 Reported [lidoderm] 12/23/17 Reported Lovenox (Enoxaparin Sodium) 40 Mg/0.4 Ml Disp.syrin 0.4 Ml SQ DAILY 12/23/17 Reported Oxybutynin Chloride 5 Mg Tablet 1 Tab PO BID 12/23/17 Reported [domperidone] 20 Mg PO TID 12/23/17 Reported Tums (Calcium Carbonate) 200 Mg Tab.chew 200 Mg PO PRN QID PRN 12/23/17 Reported Vitamin D3 (Cholecalciferol (Vitamin D3)) 1,000 Unit Tablet 2,000 Unit PO DAILY 12/23/17 Reported Multivitamins (Multivitamin) 1 Each Tablet 1 Tab PO DAILY 12/23/17 Reported Protonix (Pantoprazole Sodium) 20 Mg Tablet.dr 40 Mg PO DAILY 12/23/17 Reported Senna Plus Tablet (Sennosides/Docusate Sodium) 1 Each Tablet 1 Each PO DAILY 12/23/17 Reported [dulcolax] 10 Mg VT PRN DAILY PRN 12/23/17 Reported Xanax (Alprazolam) 0.5 Mg Tablet 0.5 Mg PO PRN Q8HRS PRN 12/23/17 Reported Melatonin 3 Mg Tablet 10 Mg PO QHS 10/30/17 Reported Colestipol Hcl 1 Gm Tablet 1 Gm PO PRN TID PRN 04/28/17 Reported Mucinex (Guaifenesin) 600 Mg Tablet.er 1 Tab PO BID PRN 12/21/16 Reported Levothyroxine Sodium 50 Mcg Tablet 1 Tab PO DAILY 12/21/16 Reported Vitamin D (Cholecalciferol (Vitamin D3)) 2,000 Unit Capsule 2,000 Unit PO TID 11/18/16 Reported Fioricet 50-300-40 Mg Capsule (Butalb/Acetaminophen/Caffeine) 1 Each Capsule 1 Each PO PRN Q4HRS PRN 03/16/16 Reported Gabapentin 100 Mg Capsule 300 Mg PO DAILY 03/01/16 Reported [Clonidine/Pump] 05/04/15 Reported Bupivacaine 0.25% On-Q Pump (Bupivacaine Hcl/Pf) 100 Ml 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 1. Chronic persistent cough for almost 1 year. It is present day and night. The cough can be multifactorial and includes a combination of acid reflux/post nasal drip and likely cough variant Asthma. Significantly resolved after adding pulmicort Nebs she has a history of gastroparesis since her fundoplication surgery many years ago. She also has postnasal drainage, which is another contributing factor. The patient was born prematurely, but there were no history of recurrent infections growing as a child. The patient also used to have parrots for about 10-15 years, but she let them go 20 years ago and clinically less likely hypersensitivity pneumonitis. 2. No significant history of tobacco use. 3. Recent admission for ileus. Plan . suspect mostly cough variant asthma and REFLUX home on flovent and albuterol antireflux med and lifestyle change LUBA LENZ MD Dec 25, 2017 09:09
[2017-12-25] MEDS: AMINO AC 3%/ELECTROLYTE/GLYCER 1,000 ML IV SCH (10:01)
[2017-12-25] MEDS: GABAPENTIN 300 MG CAPSULE. PO SCH (10:02)
[2017-12-25] MEDS: CHOLECALCIFEROL (VITAMIN D3) 1,000 UNIT TABLET PO SCH (10:02)
[2017-12-25] MEDS: buPROPion XL 150 MG TAB.ER.24H. PO SCH (10:02)
[2017-12-25 11:00] VITALS: BP 118/68
--- NOTE | 2017-12-25 12:17 | PDOC ---
PROGRESS NOTES Chief Complaint Chief Complaint memory difficulty abd pain with partial SBO h/o multiple abd sx with hernia repair GERD gastroparesis with chronic abd pain anxiety morbid obesity hypothyroidism History of Present Illness History of Present Illness Pt seen and examined Dw nurse Pt reports bowels have moved Pt is ready to eat Pt reports poor memory of past few days, believes may be medication related Vitals Vitals Vital Signs Date Time Temp Pulse Resp B/P (MAP) Pulse Ox O2 Delivery O2 Flow Rate FiO2 12/25/17 11:00 98.8 65 18 118/68 (85) 91 98.8 12/25/17 08:00 Room Air Physical Exam General: Alert, Cooperative, No acute distress Heart: Regular rate, Normal S1, Normal S2, No murmurs Lungs: Clear Abdomen: Normal bowel sounds, Soft, No tenderness Extremities: No clubbing, No cyanosis Skin: No rashes, No breakdown Review of Systems Review of Systems CO memory difficulty CO hunger Assessment and Plan Assessmemt and Plan Problems Medical Problems: (1) Adynamic ileus Status: Acute (2) Constipation Status: Acute memory difficulty abd pain with partial SBO h/o multiple abd sx with hernia repair GERD gastroparesis with chronic abd pain anxiety morbid obesity hypothyroidism Plan: Discuss with surgery about advancing diet Consult Dr. Kim Decrease PPN to 50 cc/hr PT/OT Monitor labs Comment Review of Relevant I have reviewed the following items néstor (where applicable) has been applied. Labs Laboratory Tests Test 12/24/17 04:30 White Blood Count 6.6 x10^3/uL (4.0-11.0) Red Blood Count 4.07 x10^6/uL (3.50-5.40) Hemoglobin 11.4 g/dL (12.0-15.5) Hematocrit 35.3 % (36.0-47.0) Mean Corpuscular Volume 87 fL (79-100) Mean Corpuscular Hemoglobin 28 pg (25-35) Mean Corpuscular Hemoglobin Concent 33 g/dL (31-37) Red Cell Distribution Width 17.2 % (11.5-14.5) Platelet Count 474 x10^3/uL (140-400) Neutrophils (%) (Auto) 46 % (31-73) Lymphocytes (%) (Auto) 36 % (24-48) Monocytes (%) (Auto) 15 % (0-9) Eosinophils (%) (Auto) 2 % (0-3) Basophils (%) (Auto) 1 % (0-3) Neutrophils # (Auto) 3.1 x10^3uL (1.8-7.7) Lymphocytes # (Auto) 2.4 x10^3/uL (1.0-4.8) Monocytes # (Auto) 1.0 x10^3/uL (0.0-1.1) Eosinophils # (Auto) 0.1 x10^3/uL (0.0-0.7) Basophils # (Auto) 0.1 x10^3/uL (0.0-0.2) Sodium Level 137 mmol/L (136-145) Potassium Level 3.6 mmol/L (3.5-5.1) Chloride Level 102 mmol/L (98-107) Carbon Dioxide Level 28 mmol/L (21-32) Anion Gap 7 (6-14) Blood Urea Nitrogen 9 mg/dL (7-20) Creatinine 1.0 mg/dL (0.6-1.0) Estimated GFR (Cockcroft-Gault) 54.5 Glucose Level 111 mg/dL (70-99) Calcium Level 8.9 mg/dL (8.5-10.1) Medications Current Medications Sodium Chloride 1,000 ml @ 1,000 mls/hr 1X ONCE IV Last administered on at 19:57; Start 12/22/17 at 19:15; Stop 12/22/17 at 20:14; Status DC Pantoprazole Sodium (PROTONIX VIAL for IV PUSH) 40 mg 1X ONCE IVP Last administered on 12/22/17at 20:07; Start 12/22/17 at 19:30; Stop 12/22/17 at 19:31 ; Status DC Ondansetron HCl (Zofran) 4 mg 1X ONCE IV ; Start 12/22/17 at 19:30; Stop at 19:31; Status DC Fentanyl Citrate (Fentanyl 2ml Vial) 50 mcg 1X ONCE IV Last administered on at 20:02; Start 12/22/17 at 19:30; Stop 12/22/17 at 19:31; Status DC Iohexol (Omnipaque 300 Mg/ml) 100 ml 1X ONCE IV Last administered on at 21:45; Start 12/22/17 at 21:45; Stop 12/22/17 at 21:46; Status DC Info (CONTRAST GIVEN -- Rx MONITORING) 1 each PRN DAILY PRN MC SEE COMMENTS; Start 12/22/17 at 21:45; Stop 12/24/17 at 21:44; Status DC Ondansetron HCl (Zofran) 4 mg PRN Q8HRS PRN IV NAUSEA/VOMITING; Start 12/22/17 at 22:15; Stop 12/23/17 at 14:03; Status DC Fentanyl Citrate (Fentanyl 2ml Vial) 50 mcg PRN Q2HR PRN IV PAIN Last administered on 12/23/17at 21:07; Start 12/22/17 at 22:15; Stop 12/23/17 at 22:14 ; Status DC Pantoprazole Sodium (PROTONIX VIAL for IV PUSH) 40 mg DAILY IVP Last administered on 12/23/17at 09:24; Start 12/23/17 at 09:00; Stop 12/23/17 at 11:08 ; Status DC Sodium Chloride 1,000 ml @ 125 mls/hr 1X ONCE IV Last administered on at 00:15; Start 12/22/17 at 22:15; Stop 12/23/17 at 06:14; Status DC Pharmacy Consult (C.diff Med Screen By Rx) 1 each 1X ONCE MC ; Start 12/23/17 at 09:00; Stop 12/23/17 at 09:01; Status Cancel Enoxaparin Sodium (Lovenox 40mg Syringe) 40 mg DAILY SQ Last administered on at 09:23; Start 12/23/17 at 09:00; Stop 12/23/17 at 14:54; Status DC Nystatin (Mycostatin) 1 sara QID TP Last administered on 12/25/17at 08:16; Start 12/23/17 at 09:00 Lidocaine (Lidoderm) 1 patch DAILY TP Last administered on 12/25/17at 08:15; Start 12/23/17 at 09:00 Budesonide (Pulmicort) 0.5 mg RTBID NEB Last administered on 12/25/17at 07:21; Start 12/23/17 at 20:00 Fluticasone Propionate (Flonase) 2 spray DAILY NS Last administered on 08:15; Start 12/23/17 at 11:00 Famotidine (Pepcid Vial) 20 mg BID IVP Last administered on 12/25/17 08:16; Start 12/23/17 at 21:00 Alprazolam (Xanax) 0.5 mg PRN Q8HRS PRN PO ANXIETY / AGITATION; Start 12/23/17 at 11:30; Stop 12/23/17 at 17:43; Status DC Bupropion HCl (Wellbutrin Xl) 150 mg DAILY PO Last administered on 12/25/17 10 :02; Start 12/23/17 at 12:00 Calcium Carbonate/ Glycine (Tums) 500 mg PRN QID PRN PO HEARTBURN / GAS; Start 12/23/17 at 11:30 Vitamin D (Vitamin D3) 2,000 unit DAILY PO Last administered on 12/25/17 10:02 ; Start 12/23/17 at 12:00 Colestipol HCl (Colestid) 1 gm PRN TID PRN PO DIARRHEA; Start 12/23/17 at 11:30 Gabapentin (Neurontin) 300 mg DAILY PO Last administered on 12/25/17 10:02; Start 12/23/17 at 12:00 Levothyroxine Sodium (Synthroid) 50 mcg DAILY07 PO Last administered on 08:09; Start 12/23/17 at 12:00 Risperidone (RisperDAL) 0.5 mg QHS PO ; Start 12/23/17 at 21:00; Stop 12/23/17 at 21:00; Status DC Simvastatin (Zocor) 20 mg HS PO Last administered on 12/24/17at 21:13; Start at 21:00 Amino Acids/ Glycerin/ Electrolytes 1,000 ml @ 50 mls/hr Q20H IV Last administered on 12/25/17at 10:01; Start 12/23/17 at 11:45 Acetaminophen (Tylenol) 650 mg PRN Q6HRS PRN PO FEVER Last administered on 12/23at 22:17; Start 12/23/17 at 11:45 Ondansetron HCl (Zofran) 4 mg PRN Q6HRS PRN IV NAUSEA/VOMITING Last administered on 8/27/18at 05:52; Start 12/23/17 at 11:45 Docusate Sodium (Colace) 100 mg PRN DAILY PRN PO CONSTIPATION; Start 12/23/17 at 11:45 Pantoprazole Sodium (PROTONIX VIAL for IV PUSH) 40 mg DAILYAC IVP Last administered on 12/25/17at 08:09; Start 12/24/17 at 07:30 Heparin Sodium (Porcine) (Heparin Sq) 5,000 unit Q8HRS SQ Last administered on 12/25/17at 05:42; Start 12/23/17 at 22:00 Albuterol Sulfate (Ventolin Neb Soln) 2.5 mg PRN Q4HRS PRN NEB SHORTNESS OF BREATH; Start 12/23/17 at 15:00 Zolpidem Tartrate (Ambien) 5 mg PRN QHS PRN PO INSOMNIA Last administered on at 00:53; Start 12/24/17 at 00:45 Fentanyl Citrate (Fentanyl 2ml Vial) 50 mcg PRN Q2HR PRN IV PAIN Last administered on 12/24/17at 03:26; Start 12/24/17 at 02:45 Acetaminophen/ Hydrocodone Bitart (Lortab 5/325) 1 tab PRN Q4HRS PRN PO PAIN; Start 12/24/17 at 02:45; Stop 12/24/17 at 02:45; Status DC Acetaminophen/ Hydrocodone Bitart (Lortab 5/325) 2 tab PRN Q4HRS PRN PO PAIN; Start 12/24/17 at 02:45; Stop 12/24/17 at 02:45; Status DC Tramadol HCl (Ultram) 50 mg PRN Q6HRS PRN PO MILD PAIN Last administered on at 12:54; Start 12/24/17 at 12:00 Active Scripts Active Reported Cyclobenzaprine Hcl 10 Mg Tablet 1 Tab PO DAILY Nystatin 15 Gm Cream..g. 1 Sara TP QID apply to abdominal folds and groin [lidoerm 5%] 1 Patch TP DAILY apply to left lateral knee [lidoderm 5%] 1 Patch TOP DAILY [lidoderm] Lovenox (Enoxaparin Sodium) 40 Mg/0.4 Ml Disp.syrin 0.4 Ml SQ DAILY Oxybutynin Chloride 5 Mg Tablet 1 Tab PO BID [domperidone] 20 Mg PO TID Tums (Calcium Carbonate) 200 Mg Tab.chew 200 Mg PO PRN QID PRN Vitamin D3 (Cholecalciferol (Vitamin D3)) 1,000 Unit Tablet 2,000 Unit PO DAILY Multivitamins (Multivitamin) 1 Each Tablet 1 Tab PO DAILY Protonix (Pantoprazole Sodium) 20 Mg Tablet.dr 40 Mg PO DAILY Senna Plus Tablet (Sennosides/Docusate Sodium) 1 Each Tablet 1 Each PO DAILY [dulcolax] 10 Mg NE PRN DAILY PRN Xanax (Alprazolam) 0.5 Mg Tablet 0.5 Mg PO PRN Q8HRS PRN Melatonin 3 Mg Tablet 10 Mg PO QHS Colestipol Hcl 1 Gm Tablet 1 Gm PO PRN TID PRN Mucinex (Guaifenesin) 600 Mg Tablet.er 1 Tab PO BID PRN Levothyroxine Sodium 50 Mcg Tablet 1 Tab PO DAILY Vitamin D (Cholecalciferol (Vitamin D3)) 2,000 Unit Capsule 2,000 Unit PO TID Fioricet 50-300-40 Mg Capsule (Butalb/Acetaminophen/Caffeine) 1 Each Capsule 1 Each PO PRN Q4HRS PRN Gabapentin 100 Mg Capsule 300 Mg PO DAILY [Clonidine/Pump] Bupivacaine 0.25% On-Q Pump (Bupivacaine Hcl/Pf) 100 Ml Els.wood fence erector.fr 100 Ml IJ PER PAIN PUMP Alprazolam 0.5 Mg Tab.rapdis 0.5 Mg PO DAILY Zofran Odt (Ondansetron) 8 Mg Tab.rapdis 8 Mg PO PRN Q8HRS PRN Risperdal (Risperidone) 0.5 Mg Tablet 0.5 Mg PO HS Zocor (Simvastatin) 20 Mg Tablet 20 Mg PO HS Wellbutrin (Bupropion Hcl) 100 Mg Tablet 150 Mg PO DAILY Vitals/I & O Vital Sign - Last 24 Hours 12/24/17 12/24/17 12/24/17 12/24/17 12:54 14:00 15:00 19:00 Temp 97.7 97.9 97.7 97.9 Pulse 77 77 Resp 18 18 16 16 B/P (MAP) 116/67 (83) 125/76 (92) Pulse Ox 91 91 92 93 O2 Delivery Room Air Room Air Room Air Room Air 812/24/17 12/24/17 12/25/17 19:48 20:00 22:54 03:00 Temp 98.1 97.4 98.1 97.4 Pulse 84 89 Resp 18 18 B/P (MAP) 126/79 (95) 154/87 (109) Pulse Ox 96 94 O2 Delivery Room Air Room Air Room Air 12/25/17 12/25/17 12/25/17 12/25/17 07:00 07:23 08:00 11:00 Temp 98.1 98.8 98.1 98.8 Pulse 71 65 Resp 18 18 B/P (MAP) 123/70 (87) 118/68 (85) Pulse Ox 91 91 91 O2 Delivery Room Air Room Air Intake and Output 12/24/17 12/24/17 12/25/17 15:00 23:00 07:00 Intake Total 300 ml Balance 300 ml MISA HERNANDEZ III DO Dec 25, 2017 12:17
--- NOTE | 2017-12-25 13:28 | PDOC ---
BRADLEY FRANCOIS FI[employer]ARDEN 12/25/17 1328: SURGICAL PROGRESS NOTE Subjective more abdominal cramping and nausea feels somewhat distended 2 stools yesterday, no flatus today Vital Signs Vital Signs Date Time Temp Pulse Resp B/P (MAP) Pulse Ox O2 Delivery O2 Flow Rate FiO2 12/25/17 11:00 98.8 65 18 118/68 (85) 91 98.8 12/25/17 08:00 Room Air I&O Intake and Output 12/25/17 07:00 Intake Total 300 ml Balance 300 ml Intake Oral 300 ml # Voids 16 # Bowel Movements 2 General: Alert, Oriented X3, Cooperative, No acute distress Abdomen: Soft, Other (TTP lower abdomen ) Labs Laboratory Tests Test 12/24/17 04:30 White Blood Count 6.6 x10^3/uL (4.0-11.0) Red Blood Count 4.07 x10^6/uL (3.50-5.40) Hemoglobin 11.4 g/dL (12.0-15.5) Hematocrit 35.3 % (36.0-47.0) Mean Corpuscular Volume 87 fL (79-100) Mean Corpuscular Hemoglobin 28 pg (25-35) Mean Corpuscular Hemoglobin Concent 33 g/dL (31-37) Red Cell Distribution Width 17.2 % (11.5-14.5) Platelet Count 474 x10^3/uL (140-400) Neutrophils (%) (Auto) 46 % (31-73) Lymphocytes (%) (Auto) 36 % (24-48) Monocytes (%) (Auto) 15 % (0-9) Eosinophils (%) (Auto) 2 % (0-3) Basophils (%) (Auto) 1 % (0-3) Neutrophils # (Auto) 3.1 x10^3uL (1.8-7.7) Lymphocytes # (Auto) 2.4 x10^3/uL (1.0-4.8) Monocytes # (Auto) 1.0 x10^3/uL (0.0-1.1) Eosinophils # (Auto) 0.1 x10^3/uL (0.0-0.7) Basophils # (Auto) 0.1 x10^3/uL (0.0-0.2) Sodium Level 137 mmol/L (136-145) Potassium Level 3.6 mmol/L (3.5-5.1) Chloride Level 102 mmol/L (98-107) Carbon Dioxide Level 28 mmol/L (21-32) Anion Gap 7 (6-14) Blood Urea Nitrogen 9 mg/dL (7-20) Creatinine 1.0 mg/dL (0.6-1.0) Estimated GFR (Cockcroft-Gault) 54.5 Glucose Level 111 mg/dL (70-99) Calcium Level 8.9 mg/dL (8.5-10.1) Problem List Problems Medical Problems: (1) Adynamic ileus Status: Acute (2) Constipation Status: Acute Assessment/Plan will check xrays, may need to consider SBFT KEENA DEVLIN MD 12/25/17 1450: SURGICAL PROGRESS NOTE Assessment/Plan Pt seen and examined. Agree with Ms. Francois's note Pt with c/o abd cramping, mild forgetfulness, noted previously abd soft, mild distended will check SBFT in am D/w pt and pt's supportive BRADLEY FRANCOIS APRN Dec 25, 2017 13:28 KEENA DEVLIN MD Dec 25, 2017 14:50
[2017-12-25 15:00] VITALS: BP 137/82
--- NOTE | 2017-12-25 15:38 | RAD ---
Acute abdomen series with chest, 3 views, 12/25/2017: HISTORY: Abdominal pain There are spinal stimulator type devices projected over the lower abdomen and pelvis with leads extending into the spinal canal. Surgical implants are evident at the L4-5 level. There are surgical clips in the right upper quadrant of the abdomen and in the pelvis. The abdominal gas pattern is unremarkable without evidence of obstruction. No free air seen in the abdomen. There is no evidence organomegaly. The heart is at the upper limits of normal in size. The pulmonary vascularity is normal. No pulmonary infiltrate is seen. There is no evidence of pleural fluid. IMPRESSION: 1. Postsurgical changes as described above. 2. No acute abdominal abnormality is detected Electronically signed by: Darshan Figueroa MD (12/25/2017 3:35 PM) [facility]
--- NOTE | 2017-12-25 17:02 | PDOC2 ---
NEUROLOGY CONSULT Date of Admission Date of Admission DATE: 12/25/17 TIME: 16:46 Reason for Consult Reason for Consult: IMPRESSION: Memory loss. Confusion. Cognitive function impairment. UTI. HTN. HLD. Hypothyroidism. Glucose intolerance? Chronic narcotics use, dependent. Obesity. Inactive life style. RECOMMENDATIONS/PLAN: EEG. Lab: see orders. Treat medical diseases. Avoid Narcotic abuse. Weight reduction. Mental and physical exercise. Cognitive function and neurobehavior tests as out patients base. Discussed in great detail with her at bedside on 12/25/17. HISTORY OF THE PRESENT ILLNESS: 72-y-old female patient with above medical diseases and chronic Narcotic use for more than 10 years. She had multiple surgeries including back surgery, knee replacement and has been taken Narcotics 1 to 3 or 4 times a day in the past 10 years or longer. She was noted memory decline, forgetfulness, unable to come up with correct words in conversations sometimes. She does not do physical exercise. 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 She was admitted on 12/22/17 and her has been seeing her on a daily basis, but she did not remember that. Past Medical History Cardiovascular: HTN, Hyperlipidemia CENTRAL NERVOUS SYSTEM: Migraine GI: Diverticulosis, GERD, Other Psych: Anxiety, Depression Endocrine: Hypothyroidism Past Surgical History Cholecystectomy, Hernia Repair, Total hip replacement, Total knee replacement, Other Family History No Significant, Other (noncontributory to current illness ) Social History Smoke: No ALCOHOL: none Drugs: None Lives with her at home. MEDICATIONS: Refer to [facility] REVIEW OF SYSTEMS: Constitutional:Obesity. Head: No traumatic brain or head injury. Skin: No edema, or rash. Ear: No infection. Eyes: No vision loss or color blindness. Nose: No bleeding or purulent discharges. Hearing: Hearing decrease. Neck: No injury. Breast: No history of cancer, masses,or discharges. Cardiac: HTN, HLD. Pulmonary: No COPD. GI: No GI ulcer, GI bleeding. Urinary/genital: UTI. Endocrinologic: Diabetes Mellitus? hypothyroidism, obesity. Skeletomuscular: No muscular atrophy. Neurological: see HP. Psychiatric: Narcotic use/abuse. Otherwise, not [id number] review of systems. PHYSICAL EXAMINATION: General appearance is in no acute distress. HEENT: Normocephalic and nontraumatic. Eyes, nose, ears, and throat are unremarkable. Neck is supple. No lymphadenopathy. No bruits are heard over the carotid artery. No crepitus. Cardiovascular: S1, S2, regular rate and rhythm. Pulmonary: Clear to auscultation bilaterally. Abdomen: Bowel sounds are positive. Abdomen is soft, nontender, and nondistended. Extremities: No rash, lesions, or edema. No restriction of range of motion NEUROLOGICAL EXAMINATION: Alert Oriented to time, place and person. PERRL. EOMI. CN: no focal findings. Muscle tone: within normal. Muscle strength: 5- UE, 4- LE DTR: 2- UE, o-1 at knee. Plantar reflex: Flexor response bilaterally Gait: not examined in bed. Sensory exam: no abnormal findings. No cerebellar signs elicited. F-T-N test fine. Current Medications Current Medications Current Medications Sodium Chloride 1,000 ml @ 1,000 mls/hr 1X ONCE IV Last administered on at 19:57; Start 12/22/17 at 19:15; Stop 12/22/17 at 20:14; Status DC Pantoprazole Sodium (PROTONIX VIAL for IV PUSH) 40 mg 1X ONCE IVP Last administered on 12/22/17at 20:07; Start 12/22/17 at 19:30; Stop 12/22/17 at 19:31 ; Status DC Ondansetron HCl (Zofran) 4 mg 1X ONCE IV ; Start 12/22/17 at 19:30; Stop at 19:31; Status DC Fentanyl Citrate (Fentanyl 2ml Vial) 50 mcg 1X ONCE IV Last administered on at 20:02; Start 12/22/17 at 19:30; Stop 12/22/17 at 19:31; Status DC Iohexol (Omnipaque 300 Mg/ml) 100 ml 1X ONCE IV Last administered on at 21:45; Start 12/22/17 at 21:45; Stop 12/22/17 at 21:46; Status DC Info (CONTRAST GIVEN -- Rx MONITORING) 1 each PRN DAILY PRN MC SEE COMMENTS; Start 12/22/17 at 21:45; Stop 12/24/17 at 21:44; Status DC Ondansetron HCl (Zofran) 4 mg PRN Q8HRS PRN IV NAUSEA/VOMITING; Start 12/22/17 at 22:15; Stop 12/23/17 at 14:03; Status DC Fentanyl Citrate (Fentanyl 2ml Vial) 50 mcg PRN Q2HR PRN IV PAIN Last administered on 12/23/17at 21:07; Start 12/22/17 at 22:15; Stop 12/23/17 at 22:14 ; Status DC Pantoprazole Sodium (PROTONIX VIAL for IV PUSH) 40 mg DAILY IVP Last administered on 12/23/17at 09:24; Start 12/23/17 at 09:00; Stop 12/23/17 at 11:08 ; Status DC Sodium Chloride 1,000 ml @ 125 mls/hr 1X ONCE IV Last administered on at 00:15; Start 12/22/17 at 22:15; Stop 12/23/17 at 06:14; Status DC Pharmacy Consult (C.diff Med Screen By Rx) 1 each 1X ONCE MC ; Start 12/23/17 at 09:00; Stop 12/23/17 at 09:01; Status Cancel Enoxaparin Sodium (Lovenox 40mg Syringe) 40 mg DAILY SQ Last administered on at 09:23; Start 12/23/17 at 09:00; Stop 12/23/17 at 14:54; Status DC Nystatin (Mycostatin) 1 sara QID TP Last administered on 12/25/17at 08:16; Start 12/23/17 at 09:00 Lidocaine (Lidoderm) 1 patch DAILY TP Last administered on 12/25/17at 08:15; Start 12/23/17 at 09:00 Budesonide (Pulmicort) 0.5 mg RTBID NEB Last administered on 12/25/17at 07:21; Start 12/23/17 at 20:00 Fluticasone Propionate (Flonase) 2 spray DAILY NS Last administered on 08:15; Start 12/23/17 at 11:00 Famotidine (Pepcid Vial) 20 mg BID IVP Last administered on 12/25/17at 08:16; Start 12/23/17 at 21:00 Alprazolam (Xanax) 0.5 mg PRN Q8HRS PRN PO ANXIETY / AGITATION; Start 12/23/17 at 11:30; Stop 12/23/17 at 17:43; Status DC Bupropion HCl (Wellbutrin Xl) 150 mg DAILY PO Last administered on 12/25/17at 10 :02; Start 12/23/17 at 12:00 Calcium Carbonate/ Glycine (Tums) 500 mg PRN QID PRN PO HEARTBURN / GAS; Start 12/23/17 at 11:30 Vitamin D (Vitamin D3) 2,000 unit DAILY PO Last administered on 12/25/17at 10:02 ; Start 12/23/17 at 12:00 Colestipol HCl (Colestid) 1 gm PRN TID PRN PO DIARRHEA; Start 12/23/17 at 11:30 Gabapentin (Neurontin) 300 mg DAILY PO Last administered on 12/25/17 10:02; Start 12/23/17 at 12:00 Levothyroxine Sodium (Synthroid) 50 mcg DAILY07 PO Last administered on at 08:09; Start 12/23/17 at 12:00 Risperidone (RisperDAL) 0.5 mg QHS PO ; Start 12/23/17 at 21:00; Stop 12/23/17 at 21:00; Status DC Simvastatin (Zocor) 20 mg HS PO Last administered on 12/24/17at 21:13; Start at 21:00 Amino Acids/ Glycerin/ Electrolytes 1,000 ml @ 50 mls/hr Q20H IV Last administered on 12/25/17at 10:01; Start 12/23/17 at 11:45 Acetaminophen (Tylenol) 650 mg PRN Q6HRS PRN PO FEVER Last administered on 12/23at 22:17; Start 12/23/17 at 11:45 Ondansetron HCl (Zofran) 4 mg PRN Q6HRS PRN IV NAUSEA/VOMITING Last administered on 12/25/17at 12:53; Start 12/23/17 at 11:45 Docusate Sodium (Colace) 100 mg PRN DAILY PRN PO CONSTIPATION; Start 12/23/17 at 11:45 Pantoprazole Sodium (PROTONIX VIAL for IV PUSH) 40 mg DAILYAC IVP Last administered on 12/25/17at 08:09; Start 12/24/17 at 07:30 Heparin Sodium (Porcine) (Heparin Sq) 5,000 unit Q8HRS SQ Last administered on 12/25/17at 12:58; Start 12/23/17 at 22:00 Albuterol Sulfate (Ventolin Neb Soln) 2.5 mg PRN Q4HRS PRN NEB SHORTNESS OF BREATH; Start 12/23/17 at 15:00 Zolpidem Tartrate (Ambien) 5 mg PRN QHS PRN PO INSOMNIA Last administered on at 00:53; Start 12/24/17 at 00:45 Fentanyl Citrate (Fentanyl 2ml Vial) 50 mcg PRN Q2HR PRN IV PAIN Last administered on 12/24/17at 03:26; Start 12/24/17 at 02:45 Acetaminophen/ Hydrocodone Bitart (Lortab 5/325) 1 tab PRN Q4HRS PRN PO PAIN; Start 12/24/17 at 02:45; Stop 12/24/17 at 02:45; Status DC Acetaminophen/ Hydrocodone Bitart (Lortab 5/325) 2 tab PRN Q4HRS PRN PO PAIN; Start 12/24/17 at 02:45; Stop 12/24/17 at 02:45; Status DC Tramadol HCl (Ultram) 50 mg PRN Q6HRS PRN PO MILD PAIN Last administered on at 12:54; Start 12/24/17 at 12:00 Active Scripts Active Reported Cyclobenzaprine Hcl 10 Mg Tablet 1 Tab PO DAILY Nystatin 15 Gm Cream..g. 1 Sara TP QID apply to abdominal folds and groin [lidoerm 5%] 1 Patch TP DAILY apply to left lateral knee [lidoderm 5%] 1 Patch TOP DAILY [lidoderm] Lovenox (Enoxaparin Sodium) 40 Mg/0.4 Ml Disp.syrin 0.4 Ml SQ DAILY Oxybutynin Chloride 5 Mg Tablet 1 Tab PO BID [domperidone] 20 Mg PO TID Tums (Calcium Carbonate) 200 Mg Tab.chew 200 Mg PO PRN QID PRN Vitamin D3 (Cholecalciferol (Vitamin D3)) 1,000 Unit Tablet 2,000 Unit PO DAILY Multivitamins (Multivitamin) 1 Each Tablet 1 Tab PO DAILY Protonix (Pantoprazole Sodium) 20 Mg Tablet.dr 40 Mg PO DAILY Senna Plus Tablet (Sennosides/Docusate Sodium) 1 Each Tablet 1 Each PO DAILY [dulcolax] 10 Mg AK PRN DAILY PRN Xanax (Alprazolam) 0.5 Mg Tablet 0.5 Mg PO PRN Q8HRS PRN Melatonin 3 Mg Tablet 10 Mg PO QHS Colestipol Hcl 1 Gm Tablet 1 Gm PO PRN TID PRN Mucinex (Guaifenesin) 600 Mg Tablet.er 1 Tab PO BID PRN Levothyroxine Sodium 50 Mcg Tablet 1 Tab PO DAILY Vitamin D (Cholecalciferol (Vitamin D3)) 2,000 Unit Capsule 2,000 Unit PO TID Fioricet 50-300-40 Mg Capsule (Butalb/Acetaminophen/Caffeine) 1 Each Capsule 1 Each PO PRN Q4HRS PRN Gabapentin 100 Mg Capsule 300 Mg PO DAILY [Clonidine/Pump] Bupivacaine 0.25% On-Q Pump (Bupivacaine Hcl/Pf) 100 Ml Els.slag expander.fr 100 Ml IJ PER PAIN PUMP Alprazolam 0.5 Mg Tab.rapdis 0.5 Mg PO DAILY Zofran Odt (Ondansetron) 8 Mg Tab.rapdis 8 Mg PO PRN Q8HRS PRN Risperdal (Risperidone) 0.5 Mg Tablet 0.5 Mg PO HS Zocor (Simvastatin) 20 Mg Tablet 20 Mg PO HS Wellbutrin (Bupropion Hcl) 100 Mg Tablet 150 Mg PO DAILY Allergies Allergies: Allergies Coded Allergies Type Severity Reaction Last Updated Verified prochlorperazine edisylate Allergy Severe Anaphylaxis 11/20/17 Yes prochlorperazine maleate Allergy Severe Anaphylaxis 11/20/17 Yes adhesive Allergy Intermediate 11/20/17 Yes clindamycin Allergy Intermediate extreme heartburn 11/20/17 Yes latex Allergy Intermediate 11/20/17 Yes alprazolam Adverse Reaction Severe confusion 12/23/17 Yes cyclobenzaprine Adverse Reaction Severe confusion 12/23/17 Yes risperidone Adverse Reaction Severe confusion 12/23/17 Yes ciprofloxacin Adverse Reaction Intermediate hallucinations 11/21/17 Yes ciprofloxacin HCl Adverse Reaction Intermediate hallucinations 11/21/17 Yes oxycodone Adverse Reaction Intermediate 11/21/17 Yes ROS Review of System The patient denies any associated fevers, chills, headache, ear pain, rhinorrhea , sore throat, stiff neck, productive cough, chest pain, shortness of breath, back or flank pain, abdominal pain, nausea, vomiting, diarrhea, constipation, dysuria, rash, numbness, weakness, tingling, incontinence, difficulty ambulating, or diaphoresis. Physical Exam Physical Exam General: Well developed, well nourished, no acute distress, well appearing HEENT: Pupils equally round and reactive to light, EOMI, no discharge, normal conjunctiva Neck: Supple, no nuchal rigidity, no JVD, trachea midline, no tenderness Cardiac: RRR, no murmurs, no gallops, no rubs Chest/Lungs: CTAB, no wheeze, no rhonchi, no crackles Abdomen: soft, non-distended, no guarding, no peritoneal signs, non-tender Back: No tenderness Extremities: no edema, pulses intact, non-tender,capillary refill <3 sec bilateral upper and lower extremities, Neuro: Alert and oriented x 4, no focal deficits, normal speech Vitals Vitals: Vital Signs Date Time Temp Pulse Resp B/P (MAP) Pulse Ox O2 Delivery O2 Flow Rate FiO2 12/25/17 15:00 98.9 77 18 137/82 (100) 93 98.9 12/25/17 08:00 Room Air Labs Labs Laboratory Tests Test 12/24/17 04:30 White Blood Count 6.6 x10^3/uL (4.0-11.0) Red Blood Count 4.07 x10^6/uL (3.50-5.40) Hemoglobin 11.4 g/dL (12.0-15.5) Hematocrit 35.3 % (36.0-47.0) Mean Corpuscular Volume 87 fL (79-100) Mean Corpuscular Hemoglobin 28 pg (25-35) Mean Corpuscular Hemoglobin Concent 33 g/dL (31-37) Red Cell Distribution Width 17.2 % (11.5-14.5) Platelet Count 474 x10^3/uL (140-400) Neutrophils (%) (Auto) 46 % (31-73) Lymphocytes (%) (Auto) 36 % (24-48) Monocytes (%) (Auto) 15 % (0-9) Eosinophils (%) (Auto) 2 % (0-3) Basophils (%) (Auto) 1 % (0-3) Neutrophils # (Auto) 3.1 x10^3uL (1.8-7.7) Lymphocytes # (Auto) 2.4 x10^3/uL (1.0-4.8) Monocytes # (Auto) 1.0 x10^3/uL (0.0-1.1) Eosinophils # (Auto) 0.1 x10^3/uL (0.0-0.7) Basophils # (Auto) 0.1 x10^3/uL (0.0-0.2) Sodium Level 137 mmol/L (136-145) Potassium Level 3.6 mmol/L (3.5-5.1) Chloride Level 102 mmol/L (98-107) Carbon Dioxide Level 28 mmol/L (21-32) Anion Gap 7 (6-14) Blood Urea Nitrogen 9 mg/dL (7-20) Creatinine 1.0 mg/dL (0.6-1.0) Estimated GFR (Cockcroft-Gault) 54.5 Glucose Level 111 mg/dL (70-99) Calcium Level 8.9 mg/dL (8.5-10.1) MISBAH ENCISO MD Dec 25, 2017 17:02
[2017-12-25 19:00] VITALS: BP 147/74
[2017-12-25] MEDS: SIMVASTATIN 20 MG TABLET PO SCH (20:56)
[2017-12-25 23:00] VITALS: BP 129/86
[2017-12-26 03:00] VITALS: BP 127/74
[2017-12-26] MEDS: AMINO AC 3%/ELECTROLYTE/GLYCER 1,000 ML IV SCH ×2 (03:31→14:59)
[2017-12-26] MEDS: LEVOTHYROXINE 50 MCG TABLET PO SCH (06:04)
[2017-12-26] MEDS: PANTOPRAZOLE IV PUSH 40 MG VIAL. IVP SCH (06:04)
[2017-12-26] MEDS: HEPARIN PF for SUB-Q USE 5,000 UNIT/0.5 ML VIAL. SQ SCH ×3 (06:06→21:19)
[2017-12-26] MEDS: traMADol 50 MG TABLET PO PRN (06:29)
[2017-12-26 07:00] VITALS: BP 136/81
[2017-12-26] MEDS: BUDESONIDE 0.5 MG/2 ML NEBU. NEB SCH ×2 (07:01→20:00)
[2017-12-26] MEDS: CHOLECALCIFEROL (VITAMIN D3) 1,000 UNIT TABLET PO SCH (07:21)
[2017-12-26] MEDS: buPROPion XL 150 MG TAB.ER.24H. PO SCH (07:21)
[2017-12-26] MEDS: GABAPENTIN 300 MG CAPSULE. PO SCH (07:22)
[2017-12-26] MEDS ORDERED: BARIUM SULFATE 60% 355 ML SUSP PO ONE (08:15)
--- NOTE | 2017-12-26 08:59 | PDOC ---
BRADLEY FRANCOIS APRN 12/26/17 0859: SURGICAL PROGRESS NOTE Subjective down for SBFT will fu on results Vital Signs Vital Signs Date Time Temp Pulse Resp B/P (MAP) Pulse Ox O2 Delivery O2 Flow Rate FiO2 12/26/17 07:03 95 Room Air 12/26/17 07:00 97.9 72 24 136/81 (99) 97.9 12/25/17 20:27 2.0 I&O Intake and Output 12/26/17 07:00 Intake Total 1838 ml Balance 1838 ml Intake Oral 1100 ml IV Total 738 ml # Voids 7 Problem List Problems Medical Problems: (1) Adynamic ileus Status: Acute (2) Constipation Status: Acute KEENA DEVLIN MD 12/26/17 1618: SURGICAL PROGRESS NOTE Assessment/Plan Pt seen and examined. Agree with Ms. Francois's note Pt reports feeling mildly better, eldon PO abd soft, ND, NTTP SBFT with no obstruction will ADAT and plan d/c home pending tolerating diet BRADLEY FRANCOIS APRN Dec 26, 2017 08:59 KEENA DEVLIN MD Dec 26, 2017 16:18
--- NOTE | 2017-12-26 12:00 | RAD ---
Small bowel series, 12/26/2017: History: Small bowel obstruction versus ileus, abdominal pain The preliminary abdominal image demonstrates gas in large and small bowel in a nonspecific pattern. Postsurgical changes are again noted as described on yesterday's acute abdomen series. Routine serial radiographs and fluoroscopic spot images were obtained following oral ingestion of liquid barium. 1.1 minutes of fluoroscopy time was utilized. 4 fluoroscopic spot images were recorded. There is a 3 cm diverticulum arising from the third portion of the duodenum. The proximal small bowel loops are mildly dilated. The mid and distal small bowel loops are of normal caliber. A discrete transition zone is not evident. The barium reached the cecum at 2 hours. The terminal ileum cannot be clearly delineated due to other overlying bowel loops, however, the distal ileal loops showed no specific abnormality. No fold thickening is evident. IMPRESSION: 1. Small duodenal diverticulum. 2. Mild transient dilatation of proximal small bowel loops without evidence of significant obstruction.
[2017-12-26] MEDS: NYSTATIN 100,000 UNIT/GM TOPICAL CREAM 15GM TUBE. TP SCH ×4 (13:00→21:15)
--- NOTE | 2017-12-26 13:09 | PDOC ---
PROGRESS NOTES Assessment Assessment Memory loss. Confusion. Cognitive function impairment. UTI. HTN. HLD. Hypothyroidism. Vit B 12 insufficiency. Glucose intolerance? Chronic narcotics use, dependent. Degenerative knee joint disease. Obesity. Inactive life style. RECOMMENDATIONS/PLAN: EEG. Vit B12 supplement, 1 mg daily. Treat medical diseases. Avoid Narcotic abuse. Weight reduction. Mental and physical exercise. Cognitive function and neurobehavior tests as out patients base. Discussed in great detail with her at bedside on 12/25/17. HISTORY OF THE PRESENT ILLNESS: 72-y-old female patient with above medical diseases and chronic Narcotic use for more than 10 years. She had multiple surgeries including back surgery, knee replacement and has been taken Narcotics 1 to 3 or 4 times a day in the past 10 years or longer. She was noted memory decline, forgetfulness, unable to come up with correct words in conversations sometimes. She does not do physical exercise. 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 She was admitted on 12/22/17 and her has been seeing her on a daily basis, but she did not remember that. Past Medical History Cardiovascular: HTN, Hyperlipidemia CENTRAL NERVOUS SYSTEM: Migraine GI: Diverticulosis, GERD, Other Psych: Anxiety, Depression Endocrine: Hypothyroidism Past Surgical History Cholecystectomy, Hernia Repair, Total hip replacement, Total knee replacement, Other Family History No Significant, Other (noncontributory to current illness ) Social History Smoke: No ALCOHOL: none Drugs: None Lives with her at home. MEDICATIONS: Refer to [facility] REVIEW OF SYSTEMS: Constitutional:Obesity. Head: No traumatic brain or head injury. Skin: No edema, or rash. Ear: No infection. Eyes: No vision loss or color blindness. Nose: No bleeding or purulent discharges. Hearing: Hearing decrease. Neck: No injury. Breast: No history of cancer, masses,or discharges. Cardiac: HTN, HLD. Pulmonary: No COPD. GI: No GI ulcer, GI bleeding. Urinary/genital: UTI. Endocrinologic: Diabetes Mellitus? hypothyroidism, obesity. Skeletomuscular: No muscular atrophy. Neurological: see HP. Psychiatric: Narcotic use/abuse. Otherwise, not [id number] review of systems. PHYSICAL EXAMINATION: General appearance is in no acute distress. HEENT: Normocephalic and nontraumatic. Eyes, nose, ears, and throat are unremarkable. Neck is supple. No lymphadenopathy. No bruits are heard over the carotid artery. No crepitus. Cardiovascular: S1, S2, regular rate and rhythm. Pulmonary: Clear to auscultation bilaterally. Abdomen: Bowel sounds are positive. Abdomen is soft, nontender, and nondistended. Extremities: No rash, lesions, or edema. No restriction of range of motion NEUROLOGICAL EXAMINATION: Alert Oriented to time, place and person. PERRL. EOMI. CN: no focal findings. Muscle tone: within normal. Muscle strength: 5 UE, 4- LE DTR: 2- UE, 0-1 at knee. Plantar reflex: Flexor response bilaterally Gait: not examined in bed. Sensory exam: no abnormal findings. No cerebellar signs elicited. F-T-N test fine. Objective Objective Vital Signs Date Time Temp Pulse Resp B/P (MAP) Pulse Ox O2 Delivery O2 Flow Rate FiO2 12/26/17 09:44 Room Air 12/26/17 08:00 2.0 12/26/17 07:03 95 12/26/17 07:00 97.9 72 24 136/81 (99) 97.9 Intake and Output 12/26/17 07:00 Intake Total 1838 ml Balance 1838 ml Intake Oral 1100 ml IV Total 738 ml # Voids 7 Vitals Signs Vitals VS - Last 72 Hours, by Label Date Time Temp Pulse Resp B/P (MAP) Pulse Ox O2 Delivery O2 Flow Rate FiO2 12/26/17 09:44 Room Air 12/26/17 08:00 Room Air 2.0 12/26/17 07:03 95 Room Air 12/26/17 07:00 97.9 72 24 136/81 (99) 93 Room Air 97.9 12/26/17 06:29 16 97 Room Air 12/26/17 03:00 97.7 69 20 127/74 (91) 91 Room Air 97.7 12/25/17 23:00 99.7 82 20 129/86 (100) 90 Nasal Cannula 99.7 12/25/17 20:27 Room Air 2.0 12/25/17 19:42 Room Air 12/25/17 19:00 100.8 78 18 147/74 (98) 93 Room Air 100.8 12/25/17 15:00 98.9 77 18 137/82 (100) 93 98.9 12/25/17 11:00 98.8 65 18 118/68 (85) 91 98.8 12/25/17 08:00 Room Air 12/25/17 07:23 91 Room Air 12/25/17 07:00 98.1 71 18 123/70 (87) 91 98.1 Laboratory Laboratory Microbiology 12/22/17 Urine Culture - Final, Complete 12/22/17 Urine Culture Result 1 (FARHEEN) - Final, Complete Medication Medications Current Medications Barium Sulfate (Liquid E-Z Paque) 710 ml 1X ONCE PO Last administered on at 08:38; Start 12/26/17 at 08:15; Stop 12/26/17 at 08:16; Status DC Cyanocobalamin (Vitamin B-12) 1,000 mcg DAILY PO ; Start 12/26/17 at 12:00 Comment Review of Relevant I have reviewed the following items néstor (where applicable) has been applied. MISBAH ENCISO MD Dec 26, 2017 13:09
--- NOTE | 2017-12-26 13:11 | PDOC ---
PROGRESS NOTES Chief Complaint Chief Complaint CC: Adynamic ileus Memory difficulty Abd pain with partial SBO h/o multiple abd sx with hernia repair GERD Gastroparesis with chronic abd pain Anxiety Morbid obesity Hypothyroidism History of Present Illness History of Present Illness Pt seen and examined VSS GI workup was in progress; awaiting SBFT and EGD results DW nurse and surgical staff Pt. is concerned about L knee swelling post surgery; ortho was consulted Vitals Vitals Vital Signs Date Time Temp Pulse Resp B/P (MAP) Pulse Ox O2 Delivery O2 Flow Rate FiO2 12/26/17 09:44 Room Air 12/26/17 08:00 2.0 12/26/17 07:03 95 12/26/17 07:00 97.9 72 24 136/81 (99) 97.9 Physical Exam General: Alert, Oriented X3, Cooperative, No acute distress Heart: Regular rate, Normal S1, Normal S2, No murmurs Lungs: Clear Abdomen: Normal bowel sounds, Soft, Other (TTP lower abdomen ) Extremities: No clubbing, No cyanosis Skin: No rashes, No breakdown Review of Systems Review of Systems C/O L knee pain C/O weakness Assessment and Plan Assessmemt and Plan CC: Adynamic ileus Memory difficulty Abd pain with partial SBO h/o multiple abd sx with hernia repair GERD Gastroparesis with chronic abd pain Anxiety Morbid obesity Hypothyroidism Assessment: Adynamic ileus Memory difficulty Abd pain with partial SBO h/o multiple abd sx with hernia repair GERD Gastroparesis with chronic abd pain Anxiety Morbid obesity Hypothyroidism Plan: Follow up with neuro consult; appreciate input Follow up with Drs. Borja , antonina subspecialist input Consult Ortho PT/OT Monitor labs Continue current diet Await SBFT and EGD results Comment Review of Relevant I have reviewed the following items néstor (where applicable) has been applied. Labs Microbiology 12/22/17 Urine Culture - Final, Complete 12/22/17 Urine Culture Result 1 (FARHEEN) - Final, Complete Medications Current Medications Sodium Chloride 1,000 ml @ 1,000 mls/hr 1X ONCE IV Last administered on at 19:57; Start 12/22/17 at 19:15; Stop 12/22/17 at 20:14; Status DC Pantoprazole Sodium (PROTONIX VIAL for IV PUSH) 40 mg 1X ONCE IVP Last administered on 12/22/17at 20:07; Start 12/22/17 at 19:30; Stop 12/22/17 at 19:31 ; Status DC Ondansetron HCl (Zofran) 4 mg 1X ONCE IV ; Start 12/22/17 at 19:30; Stop at 19:31; Status DC Fentanyl Citrate (Fentanyl 2ml Vial) 50 mcg 1X ONCE IV Last administered on at 20:02; Start 12/22/17 at 19:30; Stop 12/22/17 at 19:31; Status DC Iohexol (Omnipaque 300 Mg/ml) 100 ml 1X ONCE IV Last administered on at 21:45; Start 12/22/17 at 21:45; Stop 12/22/17 at 21:46; Status DC Info (CONTRAST GIVEN -- Rx MONITORING) 1 each PRN DAILY PRN MC SEE COMMENTS; Start 12/22/17 at 21:45; Stop 12/24/17 at 21:44; Status DC Ondansetron HCl (Zofran) 4 mg PRN Q8HRS PRN IV NAUSEA/VOMITING; Start 12/22/17 at 22:15; Stop 12/23/17 at 14:03; Status DC Fentanyl Citrate (Fentanyl 2ml Vial) 50 mcg PRN Q2HR PRN IV PAIN Last administered on 12/23/17at 21:07; Start 12/22/17 at 22:15; Stop 12/23/17 at 22:14 ; Status DC Pantoprazole Sodium (PROTONIX VIAL for IV PUSH) 40 mg DAILY IVP Last administered on 12/23/17at 09:24; Start 12/23/17 at 09:00; Stop 12/23/17 at 11:08 ; Status DC Sodium Chloride 1,000 ml @ 125 mls/hr 1X ONCE IV Last administered on at 00:15; Start 12/22/17 at 22:15; Stop 12/23/17 at 06:14; Status DC Pharmacy Consult (C.diff Med Screen By Rx) 1 each 1X ONCE MC ; Start 12/23/17 at 09:00; Stop 12/23/17 at 09:01; Status Cancel Enoxaparin Sodium (Lovenox 40mg Syringe) 40 mg DAILY SQ Last administered on at 09:23; Start 12/23/17 at 09:00; Stop 12/23/17 at 14:54; Status DC Nystatin (Mycostatin) 1 sara QID TP Last administered on 12/25/17 08:16; Start 12/23/17 at 09:00 Lidocaine (Lidoderm) 1 patch DAILY TP Last administered on 12/25/17at 08:15; Start 12/23/17 at 09:00 Budesonide (Pulmicort) 0.5 mg RTBID NEB Last administered on 12/26/17at 07:01; Start 12/23/17 at 20:00 Fluticasone Propionate (Flonase) 2 spray DAILY NS Last administered on 08:15; Start 12/23/17 at 11:00 Famotidine (Pepcid Vial) 20 mg BID IVP Last administered on 12/25/17at 20:55; Start 12/23/17 at 21:00 Alprazolam (Xanax) 0.5 mg PRN Q8HRS PRN PO ANXIETY / AGITATION; Start 12/23/17 at 11:30; Stop 12/23/17 at 17:43; Status DC Bupropion HCl (Wellbutrin Xl) 150 mg DAILY PO Last administered on 12/25/17at 10 :02; Start 12/23/17 at 12:00 Calcium Carbonate/ Glycine (Tums) 500 mg PRN QID PRN PO HEARTBURN / GAS; Start 12/23/17 at 11:30 Vitamin D (Vitamin D3) 2,000 unit DAILY PO Last administered on 12/25/17at 10:02 ; Start 12/23/17 at 12:00 Colestipol HCl (Colestid) 1 gm PRN TID PRN PO DIARRHEA; Start 12/23/17 at 11:30 Gabapentin (Neurontin) 300 mg DAILY PO Last administered on 12/25/17at 10:02; Start 12/23/17 at 12:00 Levothyroxine Sodium (Synthroid) 50 mcg DAILY07 PO Last administered on at 06:04; Start 12/23/17 at 12:00 Risperidone (RisperDAL) 0.5 mg QHS PO ; Start 12/23/17 at 21:00; Stop 12/23/17 at 21:00; Status DC Simvastatin (Zocor) 20 mg HS PO Last administered on 12/25/17at 20:56; Start at 21:00 Amino Acids/ Glycerin/ Electrolytes 1,000 ml @ 50 mls/hr Q20H IV Last administered on 12/26/17at 03:31; Start 12/23/17 at 11:45 Acetaminophen (Tylenol) 650 mg PRN Q6HRS PRN PO FEVER Last administered on 12/23at 22:17; Start 12/23/17 at 11:45 Ondansetron HCl (Zofran) 4 mg PRN Q6HRS PRN IV NAUSEA/VOMITING Last administered on 12/25/17at 12:53; Start 12/23/17 at 11:45 Docusate Sodium (Colace) 100 mg PRN DAILY PRN PO CONSTIPATION; Start 12/23/17 at 11:45 Pantoprazole Sodium (PROTONIX VIAL for IV PUSH) 40 mg DAILYAC IVP Last administered on 12/26/17at 06:04; Start 12/24/17 at 07:30 Heparin Sodium (Porcine) (Heparin Sq) 5,000 unit Q8HRS SQ Last administered on 12/26/17at 06:06; Start 12/23/17 at 22:00 Albuterol Sulfate (Ventolin Neb Soln) 2.5 mg PRN Q4HRS PRN NEB SHORTNESS OF BREATH; Start 12/23/17 at 15:00 Zolpidem Tartrate (Ambien) 5 mg PRN QHS PRN PO INSOMNIA Last administered on at 00:53; Start 12/24/17 at 00:45 Fentanyl Citrate (Fentanyl 2ml Vial) 50 mcg PRN Q2HR PRN IV PAIN Last administered on 12/24/17at 03:26; Start 12/24/17 at 02:45 Acetaminophen/ Hydrocodone Bitart (Lortab 5/325) 1 tab PRN Q4HRS PRN PO PAIN; Start 12/24/17 at 02:45; Stop 12/24/17 at 02:45; Status DC Acetaminophen/ Hydrocodone Bitart (Lortab 5/325) 2 tab PRN Q4HRS PRN PO PAIN; Start 12/24/17 at 02:45; Stop 12/24/17 at 02:45; Status DC Tramadol HCl (Ultram) 50 mg PRN Q6HRS PRN PO MILD PAIN Last administered on at 06:29; Start 12/24/17 at 12:00 Barium Sulfate (Liquid E-Z Paque) 710 ml 1X ONCE PO Last administered on at 08:38; Start 12/26/17 at 08:15; Stop 12/26/17 at 08:16; Status DC Cyanocobalamin (Vitamin B-12) 1,000 mcg DAILY PO ; Start 12/26/17 at 12:00 Active Scripts Active Reported Cyclobenzaprine Hcl 10 Mg Tablet 1 Tab PO DAILY Nystatin 15 Gm Cream..g. 1 Sara TP QID apply to abdominal folds and groin [lidoerm 5%] 1 Patch TP DAILY apply to left lateral knee [lidoderm 5%] 1 Patch TOP DAILY [lidoderm] Lovenox (Enoxaparin Sodium) 40 Mg/0.4 Ml Disp.syrin 0.4 Ml SQ DAILY Oxybutynin Chloride 5 Mg Tablet 1 Tab PO BID [domperidone] 20 Mg PO TID Tums (Calcium Carbonate) 200 Mg Tab.chew 200 Mg PO PRN QID PRN Vitamin D3 (Cholecalciferol (Vitamin D3)) 1,000 Unit Tablet 2,000 Unit PO DAILY Multivitamins (Multivitamin) 1 Each Tablet 1 Tab PO DAILY Protonix (Pantoprazole Sodium) 20 Mg Tablet.dr 40 Mg PO DAILY Senna Plus Tablet (Sennosides/Docusate Sodium) 1 Each Tablet 1 Each PO DAILY [dulcolax] 10 Mg VT PRN DAILY PRN Xanax (Alprazolam) 0.5 Mg Tablet 0.5 Mg PO PRN Q8HRS PRN Melatonin 3 Mg Tablet 10 Mg PO QHS Colestipol Hcl 1 Gm Tablet 1 Gm PO PRN TID PRN Mucinex (Guaifenesin) 600 Mg Tablet.er 1 Tab PO BID PRN Levothyroxine Sodium 50 Mcg Tablet 1 Tab PO DAILY Vitamin D (Cholecalciferol (Vitamin D3)) 2,000 Unit Capsule 2,000 Unit PO TID Fioricet 50-300-40 Mg Capsule (Butalb/Acetaminophen/Caffeine) 1 Each Capsule 1 Each PO PRN Q4HRS PRN Gabapentin 100 Mg Capsule 300 Mg PO DAILY [Clonidine/Pump] Bupivacaine 0.25% On-Q Pump (Bupivacaine Hcl/Pf) 100 Ml Els.computerized table cutter.fr 100 Ml IJ PER PAIN PUMP Alprazolam 0.5 Mg Tab.rapdis 0.5 Mg PO DAILY Zofran Odt (Ondansetron) 8 Mg Tab.rapdis 8 Mg PO PRN Q8HRS PRN Risperdal (Risperidone) 0.5 Mg Tablet 0.5 Mg PO HS Zocor (Simvastatin) 20 Mg Tablet 20 Mg PO HS Wellbutrin (Bupropion Hcl) 100 Mg Tablet 150 Mg PO DAILY Vitals/I & O Vital Sign - Last 24 Hours 12/25/17 12/25/17 12/25/17 12/25/17 15:00 19:00 19:42 20:27 Temp 98.9 100.8 98.9 100.8 Pulse 77 78 Resp 18 18 B/P (MAP) 137/82 (100) 147/74 (98) Pulse Ox 93 93 O2 Delivery Room Air Room Air Room Air O2 Flow Rate 2.0 12/25/17 12/26/17 12/26/17 12/26/17 23:00 03:00 06:29 07:00 Temp 99.7 97.7 97.9 99.7 97.7 97.9 Pulse 82 69 72 Resp 20 20 16 24 B/P (MAP) 129/86 (100) 127/74 (91) 136/81 (99) Pulse Ox 90 91 97 93 O2 Delivery Nasal Cannula Room Air Room Air Room Air 12/26/17 12/26/17 12/26/17 07:03 08:00 09:44 Pulse Ox 95 O2 Delivery Room Air Room Air Room Air O2 Flow Rate 2.0 Intake and Output 12/25/17 12/25/17 12/26/17 15:00 23:00 07:00 Intake Total 1738 ml 100 ml Balance 1738 ml 100 ml MISA HERNANDEZ III DO Dec 26, 2017 13:11
[2017-12-26 14:58] VITALS: BP 123/88
[2017-12-26] MEDS: CYANOCOBALAMIN (VITAMIN B-12) 1,000 MCG TABLET. PO SCH (14:58)
[2017-12-26] MEDS: FLUTICASONE 50MCG/NASAL SPRAY 16GM BOTTLE. NS SCH (14:58)
[2017-12-26] MEDS: FAMOTIDINE 20 MG/2 ML VIAL IVP SCH ×2 (14:59→21:16)
[2017-12-26] MEDS: LIDOCAINE (700MG/PATCH) PATCH. TP SCH (15:00)
[2017-12-26 19:00] VITALS: BP 115/67
--- NOTE | 2017-12-26 19:40 | PDOC ---
PULMONARY PROGRESS NOTES Subjective cough is better Vitals Vital Signs Date Time Temp Pulse Resp B/P (MAP) Pulse Ox O2 Delivery O2 Flow Rate FiO2 12/26/17 14:58 98.6 84 18 123/88 (100) 95 Room Air 98.6 12/26/17 08:00 2.0 General: Alert, Oriented X4 Lungs: Clear Cardiovascular: S1, S2 Abdomen: Soft Extremities: No Edema Skin: Warm Medications Active Scripts Medications Dose Route/Sig Max Daily Dose Days Date Category Dose Instructions Cyclobenzaprine Hcl 10 Mg Tablet 1 Tab PO DAILY 12/23/17 Reported Nystatin 15 Gm Cream..g. 1 Sara TP QID 12/23/17 Reported apply to abdominal folds and groin [lidoerm 5%] 1 Patch TP DAILY 12/23/17 Reported apply to left lateral knee [lidoderm 5%] 1 Patch TOP DAILY 12/23/17 Reported [lidoderm] 12/23/17 Reported Lovenox (Enoxaparin Sodium) 40 Mg/0.4 Ml Disp.syrin 0.4 Ml SQ DAILY 12/23/17 Reported Oxybutynin Chloride 5 Mg Tablet 1 Tab PO BID 12/23/17 Reported [domperidone] 20 Mg PO TID 12/23/17 Reported Tums (Calcium Carbonate) 200 Mg Tab.chew 200 Mg PO PRN QID PRN 12/23/17 Reported Vitamin D3 (Cholecalciferol (Vitamin D3)) 1,000 Unit Tablet 2,000 Unit PO DAILY 12/23/17 Reported Multivitamins (Multivitamin) 1 Each Tablet 1 Tab PO DAILY 12/23/17 Reported Protonix (Pantoprazole Sodium) 20 Mg Tablet.dr 40 Mg PO DAILY 12/23/17 Reported Senna Plus Tablet (Sennosides/Docusate Sodium) 1 Each Tablet 1 Each PO DAILY 12/23/17 Reported [dulcolax] 10 Mg AL PRN DAILY PRN 12/23/17 Reported Xanax (Alprazolam) 0.5 Mg Tablet 0.5 Mg PO PRN Q8HRS PRN 12/23/17 Reported Melatonin 3 Mg Tablet 10 Mg PO QHS 10/30/17 Reported Colestipol Hcl 1 Gm Tablet 1 Gm PO PRN TID PRN 04/28/17 Reported Mucinex (Guaifenesin) 600 Mg Tablet.er 1 Tab PO BID PRN 12/21/16 Reported Levothyroxine Sodium 50 Mcg Tablet 1 Tab PO DAILY 12/21/16 Reported Vitamin D (Cholecalciferol (Vitamin D3)) 2,000 Unit Capsule 2,000 Unit PO TID 11/18/16 Reported Fioricet 50-300-40 Mg Capsule (Butalb/Acetaminophen/Caffeine) 1 Each Capsule 1 Each PO PRN Q4HRS PRN 03/16/16 Reported Gabapentin 100 Mg Capsule 300 Mg PO DAILY 03/01/16 Reported [Clonidine/Pump] 05/04/15 Reported Bupivacaine 0.25% On-Q Pump (Bupivacaine Hcl/Pf) 100 Ml Els.railroad repairer.fr 100 Ml IJ PER PAIN PUMP 06/27/13 Reported Alprazolam 0.5 Mg Tab.rapdis 0.5 Mg PO DAILY 06/27/13 Reported Zofran Odt (Ondansetron) 8 Mg Tab.rapdis 8 Mg PO PRN Q8HRS PRN 06/27/13 Reported Risperdal (Risperidone) 0.5 Mg Tablet 0.5 Mg PO HS 06/27/13 Reported Zocor (Simvastatin) 20 Mg Tablet 20 Mg PO HS 06/27/13 Reported Wellbutrin (Bupropion Hcl) 100 Mg Tablet 150 Mg PO DAILY 06/27/13 Reported Impression . 1. Chronic persistent cough for almost 1 year. It is present day and night. The cough can be multifactorial and includes a combination of acid reflux/post nasal drip and likely cough variant Asthma. Significantly resolved after adding pulmicort Nebs she has a history of gastroparesis since her fundoplication surgery many years ago. She also has postnasal drainage, which is another contributing factor. The patient was born prematurely, but there were no history of recurrent infections growing as a child. The patient also used to have parrots for about 10-15 years, but she let them go 20 years ago and clinically less likely hypersensitivity pneumonitis. 2. No significant history of tobacco use. 3. Recent admission for ileus. Plan . WILL CONTINUE THE SAME HAVE SPEECH EVALUATE suspect mostly cough variant asthma and REFLUX home on flovent and albuterol antireflux med and lifestyle change LUBA LENZ MD Dec 26, 2017 19:40
[2017-12-26] MEDS: ACETAMINOPHEN 325 MG TABLET. PO PRN (21:15)
[2017-12-26] MEDS: SIMVASTATIN 20 MG TABLET PO SCH (21:15)
[2017-12-26 23:00] VITALS: BP 150/87
[2017-12-27 03:00] VITALS: BP 153/85
[2017-12-27] MEDS: LEVOTHYROXINE 50 MCG TABLET PO SCH (06:00)
[2017-12-27] MEDS: PANTOPRAZOLE IV PUSH 40 MG VIAL. IVP SCH (06:00)
[2017-12-27] MEDS: AMINO AC 3%/ELECTROLYTE/GLYCER 1,000 ML IV SCH (06:01)
[2017-12-27] MEDS: ONDANSETRON PF 4 MG/2 ML VIAL. IV PRN (06:03)
[2017-12-27] MEDS: HEPARIN PF for SUB-Q USE 5,000 UNIT/0.5 ML VIAL. SQ SCH ×2 (06:07→14:00)
[2017-12-27 07:00] VITALS: BP 130/77
[2017-12-27] MEDS: BUDESONIDE 0.5 MG/2 ML NEBU. NEB SCH (07:26)
[2017-12-27] MEDS: buPROPion XL 150 MG TAB.ER.24H. PO SCH (08:18)
[2017-12-27] MEDS: GABAPENTIN 300 MG CAPSULE. PO SCH (08:18)
[2017-12-27] MEDS: FAMOTIDINE 20 MG/2 ML VIAL IVP SCH (08:18)
[2017-12-27] MEDS: FLUTICASONE 50MCG/NASAL SPRAY 16GM BOTTLE. NS SCH (08:18)
[2017-12-27] MEDS: CYANOCOBALAMIN (VITAMIN B-12) 1,000 MCG TABLET. PO SCH (08:18)
[2017-12-27] MEDS: NYSTATIN 100,000 UNIT/GM TOPICAL CREAM 15GM TUBE. TP SCH ×2 (08:19→13:00)
[2017-12-27] MEDS: CHOLECALCIFEROL (VITAMIN D3) 1,000 UNIT TABLET PO SCH (08:19)
[2017-12-27] MEDS: LIDOCAINE (700MG/PATCH) PATCH. TP SCH (08:23)
[2017-12-27] MEDS: ACETAMINOPHEN 325 MG TABLET. PO PRN (09:47)
--- NOTE | 2017-12-27 10:21 | PDOC ---
PULMONARY PROGRESS NOTES Subjective cough is better Vitals Vital Signs Date Time Temp Pulse Resp B/P (MAP) Pulse Ox O2 Delivery O2 Flow Rate FiO2 12/27/17 07:00 97.7 76 18 130/77 (94) 93 Room Air 97.7 12/26/17 08:00 2.0 General: Alert, Oriented X4 Lungs: Clear Cardiovascular: S1, S2 Abdomen: Soft Extremities: No Edema Skin: Warm Medications Active Scripts Medications Dose Route/Sig Max Daily Dose Days Date Category Dose Instructions Cyclobenzaprine Hcl 10 Mg Tablet 1 Tab PO DAILY 12/23/17 Reported Nystatin 15 Gm Cream..g. 1 Sara TP QID 12/23/17 Reported apply to abdominal folds and groin [lidoerm 5%] 1 Patch TP DAILY 12/23/17 Reported apply to left lateral knee [lidoderm 5%] 1 Patch TOP DAILY 12/23/17 Reported [lidoderm] 12/23/17 Reported Lovenox (Enoxaparin Sodium) 40 Mg/0.4 Ml Disp.syrin 0.4 Ml SQ DAILY 12/23/17 Reported Oxybutynin Chloride 5 Mg Tablet 1 Tab PO BID 12/23/17 Reported [domperidone] 20 Mg PO TID 12/23/17 Reported Tums (Calcium Carbonate) 200 Mg Tab.chew 200 Mg PO PRN QID PRN 12/23/17 Reported Vitamin D3 (Cholecalciferol (Vitamin D3)) 1,000 Unit Tablet 2,000 Unit PO DAILY 12/23/17 Reported Multivitamins (Multivitamin) 1 Each Tablet 1 Tab PO DAILY 12/23/17 Reported Protonix (Pantoprazole Sodium) 20 Mg Tablet.dr 40 Mg PO DAILY 12/23/17 Reported Senna Plus Tablet (Sennosides/Docusate Sodium) 1 Each Tablet 1 Each PO DAILY 12/23/17 Reported [dulcolax] 10 Mg DE PRN DAILY PRN 12/23/17 Reported Xanax (Alprazolam) 0.5 Mg Tablet 0.5 Mg PO PRN Q8HRS PRN 12/23/17 Reported Melatonin 3 Mg Tablet 10 Mg PO QHS 10/30/17 Reported Colestipol Hcl 1 Gm Tablet 1 Gm PO PRN TID PRN 04/28/17 Reported Mucinex (Guaifenesin) 600 Mg Tablet.er 1 Tab PO BID PRN 12/21/16 Reported Levothyroxine Sodium 50 Mcg Tablet 1 Tab PO DAILY 12/21/16 Reported Vitamin D (Cholecalciferol (Vitamin D3)) 2,000 Unit Capsule 2,000 Unit PO TID 11/18/16 Reported Fioricet 50-300-40 Mg Capsule (Butalb/Acetaminophen/Caffeine) 1 Each Capsule 1 Each PO PRN Q4HRS PRN 03/16/16 Reported Gabapentin 100 Mg Capsule 300 Mg PO DAILY 03/01/16 Reported [Clonidine/Pump] 05/04/15 Reported Bupivacaine 0.25% On-Q Pump (Bupivacaine Hcl/Pf) 100 Ml Els.investigation division lieutenant.fr 100 Ml IJ PER PAIN PUMP 06/27/13 Reported Alprazolam 0.5 Mg Tab.rapdis 0.5 Mg PO DAILY 06/27/13 Reported Zofran Odt (Ondansetron) 8 Mg Tab.rapdis 8 Mg PO PRN Q8HRS PRN 06/27/13 Reported Risperdal (Risperidone) 0.5 Mg Tablet 0.5 Mg PO HS 06/27/13 Reported Zocor (Simvastatin) 20 Mg Tablet 20 Mg PO HS 06/27/13 Reported Wellbutrin (Bupropion Hcl) 100 Mg Tablet 150 Mg PO DAILY 06/27/13 Reported Impression . 1. Chronic persistent cough for almost 1 year. It is present day and night. The cough can be multifactorial and includes a combination of acid reflux/post nasal drip and likely cough variant Asthma. Significantly resolved after adding pulmicort Nebs she has a history of gastroparesis since her fundoplication surgery many years ago. She also has postnasal drainage, which is another contributing factor. The patient was born prematurely, but there were no history of recurrent infections growing as a child. The patient also used to have parrots for about 10-15 years, but she let them go 20 years ago and clinically less likely hypersensitivity pneumonitis. 2. No significant history of tobacco use. 3. Recent admission for ileus. Plan . WILL CONTINUE THE SAME HAVE SPEECH EVALUATE suspect mostly cough variant asthma and REFLUX home on flovent and albuterol antireflux med and lifestyle change LUBA LENZ MD Dec 27, 2017 10:21
[2017-12-27 11:00] VITALS: BP 136/85
--- NOTE | 2017-12-27 12:18 | PDOC ---
SURGICAL PROGRESS NOTE Subjective Pt with c/o nausea and insomnia, denies pain Vital Signs Vital Signs Date Time Temp Pulse Resp B/P (MAP) Pulse Ox O2 Delivery O2 Flow Rate FiO2 12/27/17 11:00 98.1 73 16 136/85 (102) 96 Room Air 98.1 12/26/17 08:00 2.0 I&O Intake and Output 12/27/17 07:00 Intake Total 280 ml Balance 280 ml Intake Oral 280 ml # Voids 6 General: Alert, Oriented X3, Cooperative, No acute distress Abdomen: Soft, No tenderness Problem List Problems Medical Problems: (1) Adynamic ileus Status: Acute (2) Constipation Status: Acute Assessment/Plan chronic bowel dysmotility suspect issues are related to chronic bowel dysmotility no obvious obstruction encourage OOB and ADAT d/c home when appropriate, no surgical plans KEENA DEVLIN MD Dec 27, 2017 12:18
[2017-12-27 15:00] VITALS: BP 153/85
--- NOTE | 2017-12-27 15:02 | PDOC ---
PROGRESS NOTES Chief Complaint Chief Complaint CC: Adynamic ileus Memory difficulty Abd pain with partial SBO h/o multiple abd sx with hernia repair GERD Gastroparesis with chronic abd pain Anxiety Morbid obesity Hypothyroidism History of Present Illness History of Present Illness Pt seen and examined Pt. exhibited memory difficulties; possible early dementia (could not remember that SBFT and EGD were performed) VSS SBFT and EGD completed DW nurse Vitals Vitals Vital Signs Date Time Temp Pulse Resp B/P (MAP) Pulse Ox O2 Delivery O2 Flow Rate FiO2 12/27/17 11:00 98.1 73 16 136/85 (102) 96 Room Air 98.1 12/26/17 08:00 2.0 Physical Exam General: Alert, Oriented X3, Cooperative, No acute distress Heart: Regular rate, Normal S1, Normal S2, No murmurs Lungs: Clear Abdomen: Soft, No tenderness Extremities: No clubbing, No cyanosis Skin: No rashes, No breakdown Review of Systems Review of Systems Pt. denies pain Pt. denies weakness Assessment and Plan Assessmemt and Plan CC: Adynamic ileus Memory difficulty Abd pain with partial SBO h/o multiple abd sx with hernia repair GERD Gastroparesis with chronic abd pain Anxiety Morbid obesity Hypothyroidism Assessment: Adynamic ileus Memory difficulty Abd pain with partial SBO h/o multiple abd sx with hernia repair GERD Gastroparesis with chronic abd pain Anxiety Morbid obesity Hypothyroidism Plan: Pt. discharged to SNU Continue to monitor neuro status for dementia progression PT/OT Advance diet as tolerable Monitor labs Continue meds Comment Review of Relevant I have reviewed the following items néstor (where applicable) has been applied. Labs Microbiology 12/22/17 Urine Culture - Final, Complete 12/22/17 Urine Culture Result 1 (FARHEEN) - Final, Complete Medications Current Medications Sodium Chloride 1,000 ml @ 1,000 mls/hr 1X ONCE IV Last administered on at 19:57; Start 12/22/17 at 19:15; Stop 12/22/17 at 20:14; Status DC Pantoprazole Sodium (PROTONIX VIAL for IV PUSH) 40 mg 1X ONCE IVP Last administered on 12/22/17at 20:07; Start 12/22/17 at 19:30; Stop 12/22/17 at 19:31 ; Status DC Ondansetron HCl (Zofran) 4 mg 1X ONCE IV ; Start 12/22/17 at 19:30; Stop at 19:31; Status DC Fentanyl Citrate (Fentanyl 2ml Vial) 50 mcg 1X ONCE IV Last administered on at 20:02; Start 12/22/17 at 19:30; Stop 12/22/17 at 19:31; Status DC Iohexol (Omnipaque 300 Mg/ml) 100 ml 1X ONCE IV Last administered on at 21:45; Start 12/22/17 at 21:45; Stop 12/22/17 at 21:46; Status DC Info (CONTRAST GIVEN -- Rx MONITORING) 1 each PRN DAILY PRN MC SEE COMMENTS; Start 12/22/17 at 21:45; Stop 12/24/17 at 21:44; Status DC Ondansetron HCl (Zofran) 4 mg PRN Q8HRS PRN IV NAUSEA/VOMITING; Start 12/22/17 at 22:15; Stop 12/23/17 at 14:03; Status DC Fentanyl Citrate (Fentanyl 2ml Vial) 50 mcg PRN Q2HR PRN IV PAIN Last administered on 12/23/17at 21:07; Start 12/22/17 at 22:15; Stop 12/23/17 at 22:14 ; Status DC Pantoprazole Sodium (PROTONIX VIAL for IV PUSH) 40 mg DAILY IVP Last administered on 12/23/17at 09:24; Start 12/23/17 at 09:00; Stop 12/23/17 at 11:08 ; Status DC Sodium Chloride 1,000 ml @ 125 mls/hr 1X ONCE IV Last administered on at 00:15; Start 12/22/17 at 22:15; Stop 12/23/17 at 06:14; Status DC Pharmacy Consult (C.diff Med Screen By Rx) 1 each 1X ONCE MC ; Start 12/23/17 at 09:00; Stop 12/23/17 at 09:01; Status Cancel Enoxaparin Sodium (Lovenox 40mg Syringe) 40 mg DAILY SQ Last administered on at 09:23; Start 12/23/17 at 09:00; Stop 12/23/17 at 14:54; Status DC Nystatin (Mycostatin) 1 astrid QID TP Last administered on 12/27/17at 08:19; Start 12/23/17 at 09:00 Lidocaine (Lidoderm) 1 patch DAILY TP Last administered on 12/27/17 08:23; Start 12/23/17 at 09:00 Budesonide (Pulmicort) 0.5 mg RTBID NEB Last administered on 12/26/17at 07:01; Start 12/23/17 at 20:00 Fluticasone Propionate (Flonase) 2 spray DAILY NS Last administered on 08:18; Start 12/23/17 at 11:00 Famotidine (Pepcid Vial) 20 mg BID IVP Last administered on 12/27/17 08:18; Start 12/23/17 at 21:00; Stop 12/27/17 at 13:29; Status DC Alprazolam (Xanax) 0.5 mg PRN Q8HRS PRN PO ANXIETY / AGITATION; Start 12/23/17 at 11:30; Stop 12/23/17 at 17:43; Status DC Bupropion HCl (Wellbutrin Xl) 150 mg DAILY PO Last administered on 12/27/17 08 :18; Start 12/23/17 at 12:00 Calcium Carbonate/ Glycine (Tums) 500 mg PRN QID PRN PO HEARTBURN / GAS; Start 12/23/17 at 11:30 Vitamin D (Vitamin D3) 2,000 unit DAILY PO Last administered on 12/27/17 08:19 ; Start 12/23/17 at 12:00 Colestipol HCl (Colestid) 1 gm PRN TID PRN PO DIARRHEA; Start 12/23/17 at 11:30 Gabapentin (Neurontin) 300 mg DAILY PO Last administered on 12/27/17 08:18; Start 12/23/17 at 12:00 Levothyroxine Sodium (Synthroid) 50 mcg DAILY07 PO Last administered on 06:00; Start 12/23/17 at 12:00 Risperidone (RisperDAL) 0.5 mg QHS PO ; Start 12/23/17 at 21:00; Stop 12/23/17 at 21:00; Status DC Simvastatin (Zocor) 20 mg HS PO Last administered on 12/26/17at 21:15; Start at 21:00 Amino Acids/ Glycerin/ Electrolytes 1,000 ml @ 50 mls/hr Q20H IV Last administered on 12/27/17 06:01; Start 12/23/17 at 11:45 Acetaminophen (Tylenol) 650 mg PRN Q6HRS PRN PO FEVER Last administered on 12/27 09:47; Start 12/23/17 at 11:45 Ondansetron HCl (Zofran) 4 mg PRN Q6HRS PRN IV NAUSEA/VOMITING 1ST CHOICE Last administered on 12/27/17 06:03; Start 12/23/17 at 11:45 Docusate Sodium (Colace) 100 mg PRN DAILY PRN PO CONSTIPATION 1ST CHOICE; Start 12/23/17 at 11:45 Pantoprazole Sodium (PROTONIX VIAL for IV PUSH) 40 mg DAILYAC IVP Last administered on 12/27/17 06:00; Start 12/24/17 at 07:30 Heparin Sodium (Porcine) (Heparin Sq) 5,000 unit Q8HRS SQ Last administered on 12/27/17at 14:00; Start 12/23/17 at 22:00 Albuterol Sulfate (Ventolin Neb Soln) 2.5 mg PRN Q4HRS PRN NEB SHORTNESS OF BREATH; Start 12/23/17 at 15:00 Zolpidem Tartrate (Ambien) 5 mg PRN QHS PRN PO INSOMNIA Last administered on at 00:53; Start 12/24/17 at 00:45 Fentanyl Citrate (Fentanyl 2ml Vial) 50 mcg PRN Q2HR PRN IV SEVERE PAIN Last administered on 12/24/17at 03:26; Start 12/24/17 at 02:45 Acetaminophen/ Hydrocodone Bitart (Lortab 5/325) 1 tab PRN Q4HRS PRN PO PAIN; Start 12/24/17 at 02:45; Stop 12/24/17 at 02:45; Status DC Acetaminophen/ Hydrocodone Bitart (Lortab 5/325) 2 tab PRN Q4HRS PRN PO PAIN; Start 12/24/17 at 02:45; Stop 12/24/17 at 02:45; Status DC Tramadol HCl (Ultram) 50 mg PRN Q6HRS PRN PO MILD PAIN Last administered on 8/ 28/18at 06:29; Start 12/24/17 at 12:00 Barium Sulfate (Liquid E-Z Paque) 710 ml 1X ONCE PO Last administered on at 08:38; Start 12/26/17 at 08:15; Stop 12/26/17 at 08:16; Status DC Cyanocobalamin (Vitamin B-12) 1,000 mcg DAILY PO Last administered on at 08:18; Start 12/26/17 at 12:00 Famotidine (Pepcid) 20 mg BID PO ; Start 12/27/17 at 21:00 Active Scripts Active Reported Cyclobenzaprine Hcl 10 Mg Tablet 1 Tab PO DAILY Nystatin 15 Gm Cream..g. 1 Astrid TP QID apply to abdominal folds and groin [lidoerm 5%] 1 Patch TP DAILY apply to left lateral knee [lidoderm 5%] 1 Patch TOP DAILY [lidoderm] Lovenox (Enoxaparin Sodium) 40 Mg/0.4 Ml Disp.syrin 0.4 Ml SQ DAILY Oxybutynin Chloride 5 Mg Tablet 1 Tab PO BID [domperidone] 20 Mg PO TID Tums (Calcium Carbonate) 200 Mg Tab.chew 200 Mg PO PRN QID PRN Vitamin D3 (Cholecalciferol (Vitamin D3)) 1,000 Unit Tablet 2,000 Unit PO DAILY Multivitamins (Multivitamin) 1 Each Tablet 1 Tab PO DAILY Protonix (Pantoprazole Sodium) 20 Mg Tablet.dr 40 Mg PO DAILY Senna Plus Tablet (Sennosides/Docusate Sodium) 1 Each Tablet 1 Each PO DAILY [dulcolax] 10 Mg KS PRN DAILY PRN Xanax (Alprazolam) 0.5 Mg Tablet 0.5 Mg PO PRN Q8HRS PRN Melatonin 3 Mg Tablet 10 Mg PO QHS Colestipol Hcl 1 Gm Tablet 1 Gm PO PRN TID PRN Mucinex (Guaifenesin) 600 Mg Tablet.er 1 Tab PO BID PRN Levothyroxine Sodium 50 Mcg Tablet 1 Tab PO DAILY Vitamin D (Cholecalciferol (Vitamin D3)) 2,000 Unit Capsule 2,000 Unit PO TID Fioricet 50-300-40 Mg Capsule (Butalb/Acetaminophen/Caffeine) 1 Each Capsule 1 Each PO PRN Q4HRS PRN Gabapentin 100 Mg Capsule 300 Mg PO DAILY [Clonidine/Pump] Bupivacaine 0.25% On-Q Pump (Bupivacaine Hcl/Pf) 100 Ml Els.heel scourer.fr 100 Ml IJ PER PAIN PUMP Alprazolam 0.5 Mg Tab.rapdis 0.5 Mg PO DAILY Zofran Odt (Ondansetron) 8 Mg Tab.rapdis 8 Mg PO PRN Q8HRS PRN Risperdal (Risperidone) 0.5 Mg Tablet 0.5 Mg PO HS Zocor (Simvastatin) 20 Mg Tablet 20 Mg PO HS Wellbutrin (Bupropion Hcl) 100 Mg Tablet 150 Mg PO DAILY Vitals/I & O Vital Sign - Last 24 Hours 12/26/17 12/26/17 12/26/17 12/26/17 14:58 19:00 20:00 20:19 Temp 98.6 98.2 98.6 98.2 Pulse 84 76 Resp 18 18 B/P (MAP) 123/88 (100) 115/67 (83) Pulse Ox 95 91 95 O2 Delivery Room Air Room Air Room Air Room Air 12/26/17 12/27/17 12/27/17 12/27/17 23:00 03:00 07:00 07:00 Temp 98.3 98.6 97.7 98.3 98.6 97.7 Pulse 72 85 76 Resp 18 18 18 B/P (MAP) 150/87 (108) 153/85 (107) 130/77 (94) Pulse Ox 93 94 93 O2 Delivery Room Air Room Air Room Air Room Air 12/27/17 11:00 Temp 98.1 98.1 Pulse 73 Resp 16 B/P (MAP) 136/85 (102) Pulse Ox 96 O2 Delivery Room Air Intake and Output 12/26/17 12/26/17 12/27/17 15:00 23:00 07:00 Intake Total 280 ml Balance 280 ml MISA HERNANDEZ III DO Dec 27, 2017 15:02
--- NOTE | 2017-12-27 17:39 | PDOC ---
PROGRESS NOTES Assessment Assessment Memory loss. Confusion. Cognitive function impairment. UTI. HTN. HLD. Hypothyroidism. Vit B 12 insufficiency. Glucose intolerance? Chronic narcotics use, dependent. Degenerative knee joint disease. Obesity. Inactive life style. RECOMMENDATIONS/PLAN: Vit B12 supplement, 1 mg daily. Treat medical diseases. Avoid Narcotic abuse. Weight reduction. Mental and physical exercise. Cognitive function and neurobehavior tests as out patients base. Discussed in great detail with her at bedside on 12/25/17. EEG on 12/26: The posterior dominant rhythm of 7-8 Hz/s is mildly slow for age. HISTORY OF THE PRESENT ILLNESS: 72-y-old female patient with above medical diseases and chronic Narcotic use for more than 10 years. She had multiple surgeries including back surgery, knee replacement and has been taken Narcotics 1 to 3 or 4 times a day in the past 10 years or longer. She was noted memory decline, forgetfulness, unable to come up with correct words in conversations sometimes. She does not do physical exercise. 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 She was admitted on 12/22/17 and her has been seeing her on a daily basis, but she did not remember that. Past Medical History Cardiovascular: HTN, Hyperlipidemia CENTRAL NERVOUS SYSTEM: Migraine GI: Diverticulosis, GERD, Other Psych: Anxiety, Depression Endocrine: Hypothyroidism Past Surgical History Cholecystectomy, Hernia Repair, Total hip replacement, Total knee replacement, Other Family History No Significant, Other (noncontributory to current illness ) Social History Smoke: No ALCOHOL: none Drugs: None Lives with her at home. MEDICATIONS: Refer to MAR REVIEW OF SYSTEMS: Constitutional:Obesity. Head: No traumatic brain or head injury. Skin: No edema, or rash. Ear: No infection. Eyes: No vision loss or color blindness. Nose: No bleeding or purulent discharges. Hearing: Hearing decrease. Neck: No injury. Breast: No history of cancer, masses,or discharges. Cardiac: HTN, HLD. Pulmonary: No COPD. GI: No GI ulcer, GI bleeding. Urinary/genital: UTI. Endocrinologic: Diabetes Mellitus? hypothyroidism, obesity. Skeletomuscular: No muscular atrophy. Neurological: see HP. Psychiatric: Narcotic use/abuse. Otherwise, not [id number] review of systems. PHYSICAL EXAMINATION: General appearance is in no acute distress. HEENT: Normocephalic and nontraumatic. Eyes, nose, ears, and throat are unremarkable. Neck is supple. No lymphadenopathy. No bruits are heard over the carotid artery. No crepitus. Cardiovascular: S1, S2, regular rate and rhythm. Pulmonary: Clear to auscultation bilaterally. Abdomen: Bowel sounds are positive. Abdomen is soft, nontender, and nondistended. Extremities: No rash, lesions, or edema. No restriction of range of motion NEUROLOGICAL EXAMINATION: Alert Oriented to time, place and person. PERRL. EOMI. CN: no focal findings. Muscle tone: within normal. Muscle strength: 5 UE, 4- LE DTR: 2- UE, 0-1 at knee. Plantar reflex: Flexor response bilaterally Gait: not examined in chair. Sensory exam: no abnormal findings. No cerebellar signs elicited. F-T-N test fine. Objective Objective Vital Signs Date Time Temp Pulse Resp B/P (MAP) Pulse Ox O2 Delivery O2 Flow Rate FiO2 12/27/17 15:00 98.2 77 16 153/85 (107) 95 Room Air 98.2 12/26/17 08:00 2.0 Intake and Output 12/27/17 07:00 Intake Total 280 ml Balance 280 ml Intake Oral 280 ml # Voids 6 Vitals Signs Vitals VS - Last 72 Hours, by Label Date Time Temp Pulse Resp B/P (MAP) Pulse Ox O2 Delivery O2 Flow Rate FiO2 12/27/17 15:00 98.2 77 16 153/85 (107) 95 Room Air 98.2 12/27/17 11:00 98.1 73 16 136/85 (102) 96 Room Air 98.1 12/27/17 07:00 97.7 76 18 130/77 (94) 93 Room Air 97.7 12/27/17 07:00 Room Air 12/27/17 03:00 98.6 85 18 153/85 (107) 94 Room Air 98.6 12/26/17 23:00 98.3 72 18 150/87 (108) 93 Room Air 98.3 12/26/17 20:19 95 Room Air 12/26/17 20:00 Room Air 12/26/17 19:00 98.2 76 18 115/67 (83) 91 Room Air 98.2 12/26/17 14:58 98.6 84 18 123/88 (100) 95 Room Air 98.6 12/26/17 09:44 Room Air 12/26/17 08:00 Room Air 2.0 12/26/17 07:03 95 Room Air 12/26/17 07:00 97.9 72 24 136/81 (99) 93 Room Air 97.9 Laboratory Laboratory Microbiology 12/22/17 Urine Culture - Final, Complete 12/22/17 Urine Culture Result 1 (FARHEEN) - Final, Complete Medication Medications Current Medications Famotidine (Pepcid) 20 mg BID PO ; Start 12/27/17 at 21:00; Stop 12/27/17 at 21: 00; Status DC Comment Review of Relevant I have reviewed the following items néstor (where applicable) has been applied. MISBAH ENCISO MD Dec 27, 2017 17:39
[2017-12-27] MEDS ORDERED: FAMOTIDINE 20 MG TABLET. PO SCH (21:00)
--- NOTE | 2017-12-27 21:59 | EEG ---
DATE OF SERVICE: 12/26/2017 EEG NUMBER: [id number] OBJECTIVE: This is a 72-year-old female patient with history of memory loss and confusional episodes. EEG was requested to evaluate cerebral activity and help rule out subclinical seizures. METHODS: Twenty electrodes were applied according to the international 10-20 electrode placement system. EKG monitoring, hyperventilation, intermittent photic stimulation, monopolar and bipolar montages are routinely utilized. The record was obtained on a digital system with video monitoring. FINDINGS: 1. Background: The patient was recorded in the awake, drowsy and brief sleep states. The overall background amplitude is 10-20 microvolts. A posterior dominant rhythm of 7-8 Hz is observed. 2. Abnormalities: No specific epileptiform discharge or electrographic seizure is seen. No focal or diffuse slowing. 3. Activation: Hyperventilation was performed with good efforts and normal response. Intermittent photic stimulation was performed with photic driving. IMPRESSION: This EEG is a mildly abnormal study for the awake, drowsy and sleep states. The posterior dominant rhythm of 7-8 Hz is slow for age. No focal, lateralizing, specific epileptiform discharge or electrographic seizure is seen. MISBAH ENCISO MD DR: FRANCIS/benito JOB#: [id number] / [id number] CAROLE
--- NOTE | 2017-12-28 18:24 | DS ---
DATE OF DISCHARGE: 12/27/2017 ADMISSION DIAGNOSES: Ileus, small-bowel obstruction, previous history of multiple abdominal surgeries with hernia repairs, gastroesophageal reflux disease, gastroparesis, anxiety, hypothyroidism. DISCHARGE DIAGNOSES: Resolving small-bowel obstruction, resolving ileus, suspected chronic bowel dysmotility. PROCEDURES: Small-bowel follow through. CONSULTS: Dr. John, Dr. Lea Ryder and Dr. Jayesh Borja. HOSPITAL COURSE: The patient is a pleasant elderly female who basically presented with abdominal pain and an ileus. She was admitted. We gave her antiemetics and fluids and tried to slowly advance her diet. She was not doing very well in the beginning, but we eventually were able to advance her diet. We did do a small bowel follow through, which showed adynamic gut. No surgical intervention was required. She was discharged with close outpatient followup. DISPOSITION: Home. ACTIVITY: As tolerated. DIET: Low sodium. MEDICATIONS: Please see MRAD. TOTAL TIME: 33 minutes. MISA HERNANDEZ DO DR: JAYA/benito JOB#: [id number] / [id number]
== END 2017-12-27 16:45 | DRG 388 ==
LOC: ER 19:01 → 4 NORTH 22:09
PROVIDERS: ADMIT Internal Medicine; ATTEND Internal Medicine
DX: K56.600 Partial intestinal obstruction, unspecified as to cause (principal); J96.20 Acute and chronic respiratory failure, unspecified whether with hypoxia or hypercapnia; N39.0 Urinary tract infection, site not specified; K56.0 Paralytic ileus; K21.9 Gastro-esophageal reflux disease without esophagitis; E66.01 Morbid (severe) obesity due to excess calories; M19.90 Unspecified osteoarthritis, unspecified site; F32.9 Major depressive disorder, single episode, unspecified; F41.9 Anxiety disorder, unspecified; E03.9 Hypothyroidism, unspecified; K31.84 Gastroparesis; Z96.649 Presence of unspecified artificial hip joint; Z96.659 Presence of unspecified artificial knee joint; I10 Essential (primary) hypertension; E78.5 Hyperlipidemia, unspecified; G89.29 Other chronic pain; G47.33 Obstructive sleep apnea (adult) (pediatric); J45.991 Cough variant asthma; F03.90 Unspecified dementia, unspecified severity, without behavioral disturbance, psychotic disturbance, mood disturbance, and anxiety; Z86.73 Personal history of transient ischemic attack (TIA), and cerebral infarction without residual deficits; Z68.36 Body mass index [BMI] 36.0-36.9, adult; Z79.891 Long term (current) use of opiate analgesic; Z91.040 Latex allergy status; Z88.8 Allergy status to other drugs, medicaments and biological substances; Z91.048 Other nonmedicinal substance allergy status
CPT/HCPCS: 36415; 71250; 74018; 74022; 74177; 74250; 80048; 80053; 80307; 81001; 82607; 83690; 84443; 84484; 85025; 87086; 87641; 93005; 94640; 94660; 94760; 95816; 96361; 96374; 96375; C9113; G0480; J1650; J2405; J3010; J7030; J7626; Q9967; S0028; 92610; 97110; 97116; 97530; 99285-25; G0479

== ENCOUNTER → 2018-01-15 | Outpatient (CLI) | payer MEDICARE, OTHER ==
[2017-12-27 15:00] VITALS: BP 153/85
[~2018-01-15] VITALS: Ht 154.9 cm; Wt 95.3 kg
[~2018-01-15] MED LIST changes: +ALPR0.5T PO; +BUPIVACAINE MPF 0.75% 30 ML VIAL. ONE; +CALC200T3 PO; +CHOL10003 PO; +ENOX40DI SQ; +MULT1TAB52 PO; +NYST15CR TP; +OXYB5TAB7 PO; +PANT20TA2 PO; +[UNRECOGNIZED DRUG - OTHER] TP; +cloNIDine PF 5,000 MCG/10 ML VIAL EP ONE; +domperidone PO; +dulcolax PR; +fentaNYL PF VIAL 250 MCG/5 ML VIAL ONE; +lidoderm; +lidoderm 5% TOP
--- NOTE | 2018-01-15 13:49 | PAIN ---
DATE OF SERVICE: 01/15/2018 PROGRESS NOTE FOR PAIN CLINIC DIAGNOSES: 1. Cervical radiculopathy with post-cervical laminectomy syndrome. 2. Bilateral knee joint pain with osteoarthritis. 3. Lumbar degenerative disk disease with post-intrathecal pump and spinal cord stimulator. HISTORY OF PRESENT ILLNESS: The patient is a 72-year-old female who returns for followup status post intrathecal pump therapy and medication management. The patient is doing very well, has recently had her left knee replaced about 2 months ago and is doing well. She is still doing her rehabilitation but feels much better with respect to her knee, still has some pain in the neck and the base of the shoulders as well as in the low back itself, described as sharp and aching with movements of the neck, burning at times in the upper back and shoulders and somewhat worse with using a walker, which she has been doing with her rehab on her knee. The patient reports the pain is only at 2 on a scale of 10 at its worse, 2 on average, 1 at its least and is a 1 today. The patient reports it is fairly well controlled. She has been decreasing her hydrocodone use as well at home. Still taking Fioricet for headaches but doing much better and describes getting back on tramadol as well. The patient reports no new motor or sensory deficits. No new bowel or bladder incontinence or other complaints. No significant side effects with her medication. Reports overall about 80% improvement with the intrathecal pump and the spinal cord stimulator combined. PHYSICAL EXAMINATION: VITAL SIGNS: Today, the patient's blood pressure is 122/71, pulse 83, respirations are 18, temperature 97.9 degrees Fahrenheit and weight is 200 pounds. GENERAL: The patient is awake, alert, oriented, appropriate and very pleasant demeanor. HEENT: Head shows normocephalic and atraumatic. Extraocular movements are intact and symmetrical. Oral cavity: Mucous membranes moist and pink. Dentition is intact. NECK: Shows anterior throat supple without palpable lymphadenopathy noted. Swallow reflex symmetrical. CHEST: Shows normal on inspection. Breath sounds are clear to auscultation bilaterally. HEART: Shows S1 and S2 clear. No murmurs auscultated. ABDOMEN: Soft, nontender and nondistended. Easily palpable left lower quadrant intrathecal pump is palpable, which is nontender and mobile. BACK: The patient's back shows spine grossly in the midline. Normal appearing thoracic and lumbar lordotic curvature. Thoracic kyphotic curvature and lumbar paraspinous muscle shows some mild tenderness with palpation. Cervical paraspinous muscle shows some moderate tenderness in the inferior aspect of the cervical paraspinous muscles and also superior medial trapezius bilaterally but only diffusely. The patient shows good rotational motion of the lumbar spine without difficulty. Easily palpable spinal cord stimulator battery, is palpable in the right posterior gluteus, which is nontender as well. EXTREMITIES: Lower extremities show deep tendon reflexes 1+ in the patellar and tendo-calcaneus tendons. Motor exam is approximately 4 on a scale of 5 but equal and symmetrical. The patient with well-healed scar over the left knee from recent surgery. Peripheral pulses are 1+ posterior tibia. No peripheral edema is noted bilaterally. Options were discussed with the patient. The patient's old chart was reviewed as well as her current medication regimen updated. Current review of systems updated today as well. We will refill the patient's intrathecal pump today with reprogramming and PTM reprogramming as well. Risks were discussed including but not limited to bleeding, infection, possibility of extravasation of medication and resuscitative measures if necessary as well as poor results regarding pain control. The patient understands and wished to proceed. The patient will return to the clinic for pump refill prior to 03/15/2018 and we will check with the PTM as well. The patient given refill for Fioricet with instructions, side effects to be aware of also. DIAGNOSES: Cervical radiculopathy with post-cervical laminectomy syndrome and lumbar degenerative disk disease. PROCEDURE: Intrathecal pump refill and reprogramming under sterile prep and drape using local anesthetic. Using a 22-gauge noncutting Pythagoras Solartronic needle with easy access into the intrathecal pump, 2 mL of old medication was withdrawn and discarded and 40 mL of the new medication containing bupivacaine, clonidine and fentanyl was then replaced in the pump without difficulty. Needle was removed. Sterile bandage was applied. Pump was reprogrammed for volume and settings as well as PTMs settings and PTM reprogram handheld unit as well. CONDITION AT DISCHARGE: Stable. The patient tolerated the procedure well and had no complications. CHITRA EPPERSON MD DR: TRAV/benito JOB#: [id number] / [id number]
== END | disposition home or self-care (01) ==
LOC: PNCL 11:27
PROVIDERS: ATTEND Anesthesiology
DX: M96.1 Postlaminectomy syndrome, not elsewhere classified (principal); M51.36 Other intervertebral disc degeneration, lumbar region; M54.12 Radiculopathy, cervical region; M17.0 Bilateral primary osteoarthritis of knee; Z88.1 Allergy status to other antibiotic agents; Z88.5 Allergy status to narcotic agent; Z88.8 Allergy status to other drugs, medicaments and biological substances; Z91.040 Latex allergy status
CPT/HCPCS: 95991

== ENCOUNTER 2018-01-20 14:45 | Emergency (ER) | payer MEDICARE, OTHER ==
[~2018-01-20] VITALS: Ht 154.9 cm; Wt 95.3 kg
[~2018-01-20 14:45] MED LIST changes: -BUPIVACAINE MPF 0.75% 30 ML VIAL. ONE; -cloNIDine PF 5,000 MCG/10 ML VIAL EP ONE; -fentaNYL PF VIAL 250 MCG/5 ML VIAL ONE
[2018-01-20] MEDS ORDERED: ONDANSETRON PF 4 MG/2 ML VIAL. IV ONE (15:30)
[2018-01-20] MEDS ORDERED: IV NORMAL SALINE 1000ML BAG 1,000 ML IV ONE (15:30)
[2018-01-20 15:39] LABS: BASO # 0.1 x10^3/uL (0.0-0.2); BASO % 1 % (0-3); EOS # 0.1 x10^3/uL (0.0-0.7); EOS % 1 % (0-3); HEMOGLOBIN 13.3 g/dL (12.0-15.5); LYMPH # 2.9 x10^3/uL (1.0-4.8); LYMPH % 40 % (24-48); MEAN CORPUSCULAR HEMOGLOBIN 28 pg (25-35); MEAN CORPUSCULAR HGB CONC 32 g/dL (31-37); MEAN CORPUSCULAR VOLUME 86 fL (79-100); MONO # 0.9 x10^3/uL (0.0-1.1); MONO % 13 % (0-9); NEUT # 3.2 x10^3uL (1.8-7.7); NEUT % 45 % (31-73); PLATELET COUNT 422 x10^3/uL (140-400); RED BLOOD COUNT 4.79 x10^6/uL (3.50-5.40); RED CELL DISTRIBUTION WIDTH 16.7 % (11.5-14.5); WHITE BLOOD COUNT 7.1 x10^3/uL (4.0-11.0)
[2018-01-20 15:45] LABS: PROTHROMBIN TIME PATIENT 12.8 SEC (11.7-14.0)
[2018-01-20 15:46] LABS: CALCIUM 9.4 mg/dL (8.5-10.1); CREATININE 0.9 mg/dL (0.6-1.0); GFR 61.5; POTASSIUM 3.7 mmol/L (3.5-5.1)
[2018-01-20 15:52] LABS: ALBUMIN 3.7 g/dL (3.4-5.0); ALBUMIN/GLOBULIN RATIO 0.9 (1.0-1.7); TOTAL BILIRUBIN 0.4 mg/dL (0.2-1.0)
[2018-01-20] MEDS ORDERED: IOHEXOL 300 MG/ML 100ML VIAL. IV ONE (16:30)
[2018-01-20] MEDS ORDERED: CONTRAST GIVEN. MC PRN (16:30)
[2018-01-20 16:40] LABS: BILIRUBIN,URINE NEGATIVE (NEG); CLARITY,URINE CLEAR; NITRITE,URINE NEGATIVE (NEG); PROTEIN,URINE NEGATIVE (NEG-TRACE); UROBILINOGEN,URINE 0.2 mg/dL (0.2 mg/dL)
[2018-01-20 16:55] LABS: COLOR,URINE STRAW
[2018-01-20 16:57] LABS: BACTERIA,URINE 0 /HPF (0-FEW); RBC,URINE RARE /HPF (0-2); SQUAMOUS EPITHELIAL CELL,UR FEW /LPF; WBC,URINE 0 /HPF (0-4)
--- NOTE | 2018-01-20 17:52 | RAD ---
CT study of the abdomen and pelvis with contrast Clinical indications: Nausea for one day with epigastric pain. Diarrhea today. But technique: After IV infusion of 75 cc of Omnipaque 300, helical CT scanning of the abdomen and pelvis was performed. No GI contrast was administered. This may decrease the sensitivity to detect GI tract pathology. PQRS compliance Statement One or more of the following individualized dose reduction techniques were utilized for this study: 1. Automated exposure control 2. Adjustment of the mA and/or kV according to patient size 3. Use of iterative reconstruction technique COMPARISON: December 22, 2017. FINDINGS: The liver and spleen and pancreas are unremarkable. The gallbladder is surgically absent. There is mild stable dilatation of the extra hepatic biliary tree most likely secondary to the reservoir effect after a cholecystectomy. No adrenal mass is evident. Small nonobstructing stone of the lower pole right kidney is again evident. No hydronephrosis or renal mass or hydroureter is evident on either side. Urinary bladder wall is smooth. Mild sigmoid diverticulosis is seen without diverticulitis. There is mild segmental wall thickening of the colon which may be seen with colitis. No pericolic inflammatory change is evident. No free fluid or free air or mesenteric edema is seen. The appendix is normal. No obstructive bowel pattern is evident. Mild atelectasis of the medial left lung base is evident. No osteolytic process is evident. IMPRESSION: Segmental wall thickening of the colon which may be seen with colitis or colonic spasm. No bowel obstruction or free air or free fluid is seen. Electronically signed by: Roman Licona MD (01/20/2018 5:48 PM) [id number]
--- NOTE | 2018-01-20 18:05 | PHYS DOC ---
Past Medical History Past Medical History: Anxiety, Arthritis, Depression, Diverticulitis, GERD, Hypothyroid, Migraines, TIA, Other Additional Past Medical Histor: CHRONIC PAIN,GASTROPARESIS,pre DM,SBO,PAIN PUMP Past Surgical History: Cholecystectomy, , Knee Replacement, Tonsillectomy Additional Past Surgical Histo: HERNIA,BUNIONECTOMY BILAT FEET,FUNDOLICATION, SPINAL CORD STIMULATOR, Alcohol Use: None Drug Use: None Adult General Chief Complaint Chief Complaint: ABDOMINAL PAIN HPI HPI Patient is a 72 year old F brought in by her for abdominal pain and nausea since overnight last night. Pt has a history of bowel obstructions and mutiple abd surgeries so they were concerned. Review of Systems Review of Systems Constitutional: Denies fever or chills Respiratory: Denies cough or shortness of breath Cardiovascular: Denies chest pain. GI: Reports abdominal pain, diarrhea and nausea. : Denies dysuria or hematuria Musculoskeletal: Denies back pain or joint pain Integument: Denies rash or skin lesions Neurologic: Denies headache, focal weakness or sensory changes All other systems were reviewed and found to be within normal limits, except as documented in this note. Current Medications Current Medications Current Medications Medications (Trade) Dose Ordered Sig/Suki Start Time Stop Time Status Last Admin Dose Admin Info (CONTRAST GIVEN -- Rx MONITORING) 1 each PRN DAILY PRN 01/20/18 16:30 01/20/18 18:43 DC Iohexol (Omnipaque 300 Mg/ml) 75 ml 1X ONCE 01/20/18 16:30 01/20/18 16:31 DC 01/20/18 16:41 75 ML Metronidazole (Flagyl) 500 mg 1X ONCE 01/20/18 18:30 01/20/18 18:31 DC 01/20/18 18:26 500 MG Ondansetron HCl (Zofran) 4 mg 1X ONCE 01/20/18 15:30 01/20/18 15:31 DC 01/20/18 15:34 4 MG Sodium Chloride 1,000 ml @ 125 mls/hr 1X ONCE 01/20/18 15:30 01/20/18 18:43 DC 01/20/18 15:34 125 MLS/HR Allergies Allergies Allergies Coded Allergies Type Severity Reaction Last Updated Verified prochlorperazine edisylate Allergy Severe Anaphylaxis 11/20/17 Yes prochlorperazine maleate Allergy Severe Anaphylaxis 11/20/17 Yes adhesive Allergy Intermediate 11/20/17 Yes clindamycin Allergy Intermediate extreme heartburn 11/20/17 Yes latex Allergy Intermediate 11/20/17 Yes alprazolam Adverse Reaction Severe confusion 12/23/17 Yes cyclobenzaprine Adverse Reaction Severe confusion 12/23/17 Yes risperidone Adverse Reaction Severe confusion 12/23/17 Yes ciprofloxacin Adverse Reaction Intermediate hallucinations 11/21/17 Yes ciprofloxacin HCl Adverse Reaction Intermediate hallucinations 11/21/17 Yes oxycodone Adverse Reaction Intermediate 11/21/17 Yes Physical Exam Physical Exam Constitutional: Well developed, well nourished, no acute distress, non-toxic appearance. Appears uncomfortable and pale. HENT: Normocephalic, atraumatic, bilateral external ears normal, oropharynx moist, no oral exudates, nose normal. Neck: Normal range of motion, no tenderness, supple, no stridor. Cardiovascular:Heart rate regular rhythm, no murmur Lungs & Thorax: Bilateral breath sounds clear to auscultation Abdomen: Bowel sounds normal, soft, mild diffuse tenderness throughout Skin: Warm, dry, no erythema, no rash. Back: No tenderness, no CVA tenderness. Extremities: No tenderness, no cyanosis, no clubbing, ROM intact, no edema. Neurologic: Alert and oriented X 3, normal motor function, normal sensory function, no focal deficits noted. Psychologic: Affect normal, judgement normal, mood normal. Current Patient Data Vital Signs Vital Signs Date Time Temp Pulse Resp B/P (MAP) Pulse Ox O2 Delivery O2 Flow Rate FiO2 01/20/18 18:10 84 155/99 (117) 97 Room Air 01/20/18 15:07 99.4 20 99.4 Lab Values Laboratory Tests Test 01/20/18 15:17 01/20/18 16:26 White Blood Count 7.1 x10^3/uL (4.0-11.0) Red Blood Count 4.79 x10^6/uL (3.50-5.40) Hemoglobin 13.3 g/dL (12.0-15.5) Hematocrit 41.0 % (36.0-47.0) Mean Corpuscular Volume 86 fL (79-100) Mean Corpuscular Hemoglobin 28 pg (25-35) Mean Corpuscular Hemoglobin Concent 32 g/dL (31-37) Red Cell Distribution Width 16.7 % (11.5-14.5) H Platelet Count 422 x10^3/uL (140-400) H Neutrophils (%) (Auto) 45 % (31-73) Lymphocytes (%) (Auto) 40 % (24-48) Monocytes (%) (Auto) 13 % (0-9) H Eosinophils (%) (Auto) 1 % (0-3) Basophils (%) (Auto) 1 % (0-3) Neutrophils # (Auto) 3.2 x10^3uL (1.8-7.7) Lymphocytes # (Auto) 2.9 x10^3/uL (1.0-4.8) Monocytes # (Auto) 0.9 x10^3/uL (0.0-1.1) Eosinophils # (Auto) 0.1 x10^3/uL (0.0-0.7) Basophils # (Auto) 0.1 x10^3/uL (0.0-0.2) Prothrombin Time 12.8 SEC (11.7-14.0) Prothrombin Time INR 1.0 (0.8-1.1) PTT 23 SEC (24-38) L Sodium Level 143 mmol/L (136-145) Potassium Level 3.7 mmol/L (3.5-5.1) Chloride Level 105 mmol/L (98-107) Carbon Dioxide Level 23 mmol/L (21-32) Anion Gap 15 (6-14) H Blood Urea Nitrogen 11 mg/dL (7-20) Creatinine 0.9 mg/dL (0.6-1.0) Estimated GFR (Cockcroft-Gault) 61.5 BUN/Creatinine Ratio 12 (6-20) Glucose Level 119 mg/dL (70-99) H Calcium Level 9.4 mg/dL (8.5-10.1) Total Bilirubin 0.4 mg/dL (0.2-1.0) Aspartate Amino Transferase (AST) 66 U/L (15-37) H Alanine Aminotransferase (ALT) 51 U/L (14-59) Alkaline Phosphatase 111 U/L (46-116) Troponin I Quantitative < 0.017 ng/mL (0.000-0.055) ZN-Lnc-C-Type Natriuretic Peptide 227 pg/mL (0-124) H Total Protein 8.0 g/dL (6.4-8.2) Albumin 3.7 g/dL (3.4-5.0) Albumin/Globulin Ratio 0.9 (1.0-1.7) L Lipase 101 U/L (73-393) Urine Collection Type Void Urine Color Straw Urine Clarity Clear Urine pH 7.0 Urine Specific [place] 1.010 Urine Protein Negative mg/dL (NEG-TRACE) Urine Glucose (UA) Negative mg/dL (NEG) Urine Ketones (Stick) Negative mg/dL (NEG) Urine Blood Negative (NEG) Urine Nitrite Negative (NEG) Urine Bilirubin Negative (NEG) Urine Urobilinogen Dipstick 0.2 mg/dL (0.2 mg/dL) Urine Leukocyte Esterase Negative (NEG) Urine RBC Rare /HPF (0-2) Urine WBC 0 /HPF (0-4) Urine Squamous Epithelial Cells Few /LPF Urine Bacteria 0 /HPF (0-FEW) Urine Mucus Slight /LPF Laboratory Tests 01/20/18 15:17 Laboratory Tests 01/20/18 15:17 EKG EKG sinus rhythm at 88bpm, no ST elevation or ischemic findings. Radiology/Procedures Radiology/Procedures [] Course & Med Decision Making Course & Med Decision Making Pertinent Labs and Imaging studies reviewed. (See chart for details) Pt's labs and CT are very reassuring. She does fit clinical picture of colitis with diffuse abd pain and diarrhea. Will cover with flagyl and zofran and per pt request, Diflucan. Discussed rest, fluids and bland diet and pt has a f/u appt with her PCP on Monday of this week. Pt to return if symptoms worsen at anytime. Pt is visibly feeling better. She has more color in her cheeks, appears more hydrated and is smiling and talkative with in her room. Dragon Disclaimer Dragon Disclaimer This electronic medical record was generated, in whole or in part, using a voice recognition dictation system. Departure Departure Impression: Primary Impression: Colitis Additional Impressions: Nausea Abdominal pain Disposition: 01 HOME, SELF-CARE Condition: IMPROVED Referrals: DIMA BARAJAS MD (PCP) Patient Instructions: Colitis Scripts Fluconazole (DIFLUCAN) 150 Mg Tablet 1 TAB PO ONCE, #1 TAB 1 Refill Prov: DIVYA HERNANDEZ 01/20/18 Ondansetron (ZOFRAN ODT) 4 Mg Tab.rapdis 1 TAB SL Q8HRS, #10 TAB Prov: DIVYA HERNADNEZ 01/20/18 Metronidazole (FLAGYL) 500 Mg Tablet 1 TAB PO BID, #14 TAB Prov: DIVYA HERNANDEZ 01/20/18 Problem Qualifiers DIVYA HERNANDEZ Jan 20, 2018 18:05
[2018-01-20] MEDS ORDERED: ONDA4TAB10 SL (18:07)
[2018-01-20] MEDS ORDERED: METR500T PO (18:07)
[2018-01-20 18:10] VITALS: BP 155/99
[2018-01-20] MEDS ORDERED: FLUC150T PO (18:21)
[2018-01-20] MEDS ORDERED: metroNIDAZOLE 500 MG TABLET PO ONE (18:30)
--- NOTE | 2018-01-21 21:13 | EKG ---
[facility] [address] [place] [address] Test Date: 2018-01-20 Test Time: 15:22:57 Pat Name: RC MCMILLAN Department: Room: Gender: F [employer] Operator: : 1945 Requested By: DIVYA HERNANDEZ Order Number: [id number] Reading MD: Richar Diamond Measurements Intervals [place] Rate: 88 P: 38 PA: 128 QRS: -63 QRSD: 98 T: 28 QT: 384 QTc: 468 Interpretive Statements SINUS RHYTHM VENTRICULAR PREMATURE COMPLEX(ES) ABNORMAL LEFT AXIS DEVIATION LEFT ANTERIOR FASCICULAR BLOCK QRS(T) CONTOUR ABNORMALITY CONSIDER ANTEROSEPTAL MYOCARDIAL DAMAGE ABNORMAL ECG Electronically Signed On 01-23-2018 10:56:30 CDT by Richar Diamond
== END 2018-01-20 18:42 | disposition home or self-care (01) ==
LOC: ER 14:45
DX: K52.9 Noninfective gastroenteritis and colitis, unspecified (principal); E03.9 Hypothyroidism, unspecified; K21.9 Gastro-esophageal reflux disease without esophagitis; G43.909 Migraine, unspecified, not intractable, without status migrainosus; G89.29 Other chronic pain; Z90.49 Acquired absence of other specified parts of digestive tract; Z87.19 Personal history of other diseases of the digestive system; Z86.73 Personal history of transient ischemic attack (TIA), and cerebral infarction without residual deficits; Z91.040 Latex allergy status; Z88.1 Allergy status to other antibiotic agents; Z88.5 Allergy status to narcotic agent; Z88.8 Allergy status to other drugs, medicaments and biological substances
CPT/HCPCS: 36415; 74177; 80053; 81001; 83690; 83880; 84484; 85025; 85610; 85730; 93005; 96361; 96374; 99285; J2405; J7030; Q9967

== ENCOUNTER → 2018-02-01 | Outpatient (CLI) | payer MEDICARE, OTHER ==
[2018-01-20 18:10] VITALS: BP 155/99
[~2018-02-01] MED LIST changes: +METR500T PO; +ONDA4TAB10 SL
--- NOTE | 2018-02-01 12:40 | KCIC ---
Examination: ABDOMEN COMPLETE History: Hepatitis C Comparison/Correlation: CT abdomen and pelvis with contrast 01/20/2018 Findings: Mild fatty infiltration of the liver is present. Portal venous color Doppler imaging is normal. Cholecystectomy noted. Common bile duct measures 0.3 cm. Liver length is 21.6 cm. No biliary dilatation. Right kidney measures 10.1 cm x 4 cm x 4 cm. Left kidney measures 10.5 cm x 2.6 cm x 4.7 cm. No hydronephrosis. Normal renal contours and echotexture. Renal cortical thinning is evident. Spleen measures 8.6 cm longitudinal. Proximal pancreas is unremarkable although not optimally delineated. Distal pancreas is obscured by bowel gas. Abdominal aorta and inferior vena cava are obscured by bowel gas. Impression: Mild fatty infiltration of the liver. Hepatomegaly. Electronically signed by: Leonardo Rincon MD (02/01/2018 12:36 PM) [id number]
== END | disposition home or self-care (01) ==
LOC: KCIC US 10:51
PROVIDERS: ATTEND Physician Assistant
DX: K76.0 Fatty (change of) liver, not elsewhere classified (principal); R16.0 Hepatomegaly, not elsewhere classified
CPT/HCPCS: 76700

== ENCOUNTER 2018-02-10 18:27 | Emergency (ER) | payer MEDICARE, OTHER ==
[~2018-02-10] VITALS: Ht 154.9 cm; Wt 90.3 kg
[2018-02-10 19:01] LABS: BILIRUBIN,URINE NEGATIVE (NEG); CLARITY,URINE CLOUDY; COLOR,URINE YELLOW; NITRITE,URINE POSITIVE (NEG); PH,URINE 5.5; PROTEIN,URINE NEGATIVE (NEG-TRACE)
[2018-02-10 19:34] LABS: BACTERIA,URINE MANY /HPF (0-FEW); RBC,URINE 0 /HPF (0-2); SQUAMOUS EPITHELIAL CELL,UR MOD /LPF; WBC,URINE TNTC /HPF (0-4)
[2018-02-10 19:39] LABS: BASO # 0.1 x10^3/uL (0.0-0.2); BASO % 1 % (0-3); EOS # 0.2 x10^3/uL (0.0-0.7); EOS % 2 % (0-3); HEMATOCRIT 37.8 % (36.0-47.0); HEMOGLOBIN 12.3 g/dL (12.0-15.5); LYMPH # 2.6 x10^3/uL (1.0-4.8); LYMPH % 33 % (24-48); MEAN CORPUSCULAR HEMOGLOBIN 29 pg (25-35); MEAN CORPUSCULAR HGB CONC 33 g/dL (31-37); MEAN CORPUSCULAR VOLUME 88 fL (79-100); MONO # 0.9 x10^3/uL (0.0-1.1); MONO % 11 % (0-9); NEUT # 4.2 x10^3uL (1.8-7.7); NEUT % 53 % (31-73); PLATELET COUNT 382 x10^3/uL (140-400); RED BLOOD COUNT 4.31 x10^6/uL (3.50-5.40); RED CELL DISTRIBUTION WIDTH 18.1 % (11.5-14.5); WHITE BLOOD COUNT 7.9 x10^3/uL (4.0-11.0)
[2018-02-10 19:44] LABS: CALCIUM 8.9 mg/dL (8.5-10.1); GFR 54.5; POTASSIUM 4.4 mmol/L (3.5-5.1)
[2018-02-10 19:50] LABS: ALBUMIN 3.2 g/dL (3.4-5.0); ALBUMIN/GLOBULIN RATIO 0.9 (1.0-1.7); TOTAL BILIRUBIN 0.3 mg/dL (0.2-1.0); TOTAL PROTEIN 6.8 g/dL (6.4-8.2)
[2018-02-10] MEDS ORDERED: FLUCONAZOLE 100 MG TABLET. PO ONE (20:15)
[2018-02-10 20:30] VITALS: BP 122/69
[2018-02-10] MEDS ORDERED: SULF1TAB24 PO (21:07)
[2018-02-10] MEDS ORDERED: FLUC50TA PO (21:07)
--- NOTE | 2018-02-10 21:09 | PHYS DOC ---
Past Medical History Past Medical History: Anxiety, Arthritis, Depression, Diverticulitis, GERD, Hypothyroid, Migraines, TIA, Other Additional Past Medical Histor: CHRONIC PAIN,GASTROPARESIS,pre DM,SBO,PAIN PUMP Past Surgical History: Cholecystectomy, , Knee Replacement, Tonsillectomy Additional Past Surgical Histo: HERNIA,BUNIONECTOMY BILAT FEET,FUNDOLICATION, SPINAL CORD STIMULATOR, Alcohol Use: None Drug Use: None Adult General Chief Complaint Chief Complaint: URINARY FREQUENCY HPI HPI Patient is a 72 year old female who presents with history of recurrent UTIs. Patient states she's had symptoms of dysuria for the past 2 weeks and was diagnosed and finished a 10 day course of Bactrim approximately 6 days ago. Patient is redeveloped the symptoms and is here for further evaluation and management. Patient apparently has a distant history of a complication from abdominal surgery where one of her ureters was tied off and she had to have some reconstructive surgery which caused subsequent recurrent UTIs. Patient was followed by urologist at one point that had her on a low-dose antibiotic for. Of urinate half which she responded well to. That urologist unfortunately and she has not established care with a new neurologist for many years. Patient states she does have an appointment coming up this to establish care with a new neurologist but was here today because she didn't want to wait given the fact that she has become septic in the past from urinary tract infections. She has no abdominal pain complains only of dysuria and denies any nausea vomiting and diarrhea. Patient is alert and relaxed and has no other acute complaints. Review of Systems Review of Systems Constitutional: Denies fever or chills [] Eyes: Denies change in visual acuity, redness, or eye pain [] HENT: Denies nasal congestion or sore throat [] Respiratory: Denies cough or shortness of breath [] Cardiovascular: No additional information not addressed in HPI [] GI: Denies abdominal pain, nausea, vomiting, bloody stools or diarrhea [] : Positive for dysuria denies hematuria [] Musculoskeletal: Denies back pain or joint pain [] Integument: Denies rash or skin lesions [] Neurologic: Denies headache, focal weakness or sensory changes [] Endocrine: Denies polyuria or polydipsia [] All other systems were reviewed and found to be within normal limits, except as documented in this note. Current Medications Current Medications Current Medications Medications (Trade) Dose Ordered Sig/Suki Start Time Stop Time Status Last Admin Dose Admin Ceftriaxone Sodium 50 ml @ 100 mls/hr 1X ONCE 02/10/18 20:30 02/10/18 20:59 02/10/18 20:29 100 MLS/HR Fluconazole (Diflucan) 100 mg 1X ONCE 02/10/18 20:15 02/10/18 20:16 DC 02/10/18 20:29 100 MG Allergies Allergies Allergies Coded Allergies Type Severity Reaction Last Updated Verified prochlorperazine edisylate Allergy Severe Anaphylaxis 11/20/17 Yes prochlorperazine maleate Allergy Severe Anaphylaxis 11/20/17 Yes adhesive Allergy Intermediate 11/20/17 Yes clindamycin Allergy Intermediate extreme heartburn 11/20/17 Yes latex Allergy Intermediate 11/20/17 Yes alprazolam Adverse Reaction Severe confusion 12/23/17 Yes cyclobenzaprine Adverse Reaction Severe confusion 12/23/17 Yes risperidone Adverse Reaction Severe confusion 12/23/17 Yes ciprofloxacin Adverse Reaction Intermediate hallucinations 11/21/17 Yes ciprofloxacin HCl Adverse Reaction Intermediate hallucinations 11/21/17 Yes oxycodone Adverse Reaction Intermediate 11/21/17 Yes Physical Exam Physical Exam Constitutional: Well developed, well nourished, no acute distress, non-toxic appearance. [] HENT: Normocephalic, atraumatic, bilateral external ears normal, oropharynx moist, no oral exudates, nose normal. [] Eyes: PERRLA, EOMI, conjunctiva normal, no discharge. [] Neck: Normal range of motion, no tenderness, supple, no stridor. [] Cardiovascular:Heart rate regular rhythm, no murmur [] Lungs & Thorax: Bilateral breath sounds clear to auscultation [] Abdomen: Bowel sounds normal, soft, no tenderness, no masses, no pulsatile masses. [] Skin: Warm, dry, no erythema, no rash. [] Back: No tenderness, no CVA tenderness. [] Extremities: No tenderness, no cyanosis, no clubbing, ROM intact, no edema. [] Neurologic: Alert and oriented X 3, normal motor function, normal sensory function, no focal deficits noted. [] Psychologic: Affect normal, judgement normal, mood normal. [] Current Patient Data Vital Signs Vital Signs Date Time Temp Pulse Resp B/P (MAP) Pulse Ox O2 Delivery O2 Flow Rate FiO2 02/10/18 18:45 98.2 94 18 139/91 (107) 94 Room Air 98.2 Lab Values Laboratory Tests Test 02/10/18 18:45 02/10/18 19:10 Urine Collection Type Unknown Urine Color Yellow Urine Clarity Cloudy Urine pH 5.5 Urine Specific [place] 1.015 Urine Protein Negative mg/dL (NEG-TRACE) Urine Glucose (UA) Negative mg/dL (NEG) Urine Ketones (Stick) Negative mg/dL (NEG) Urine Blood Trace (NEG) Urine Nitrite Positive (NEG) Urine Bilirubin Negative (NEG) Urine Urobilinogen Dipstick 1.0 mg/dL (0.2 mg/dL) Urine Leukocyte Esterase Large (NEG) Urine RBC 0 /HPF (0-2) Urine WBC Tntc /HPF (0-4) Urine Squamous Epithelial Cells Mod /LPF Urine Bacteria Many /HPF (0-FEW) Urine Mucus Mod /LPF White Blood Count 7.9 x10^3/uL (4.0-11.0) Red Blood Count 4.31 x10^6/uL (3.50-5.40) Hemoglobin 12.3 g/dL (12.0-15.5) Hematocrit 37.8 % (36.0-47.0) Mean Corpuscular Volume 88 fL (79-100) Mean Corpuscular Hemoglobin 29 pg (25-35) Mean Corpuscular Hemoglobin Concent 33 g/dL (31-37) Red Cell Distribution Width 18.1 % (11.5-14.5) H Platelet Count 382 x10^3/uL (140-400) Neutrophils (%) (Auto) 53 % (31-73) Lymphocytes (%) (Auto) 33 % (24-48) Monocytes (%) (Auto) 11 % (0-9) H Eosinophils (%) (Auto) 2 % (0-3) Basophils (%) (Auto) 1 % (0-3) Neutrophils # (Auto) 4.2 x10^3uL (1.8-7.7) Lymphocytes # (Auto) 2.6 x10^3/uL (1.0-4.8) Monocytes # (Auto) 0.9 x10^3/uL (0.0-1.1) Eosinophils # (Auto) 0.2 x10^3/uL (0.0-0.7) Basophils # (Auto) 0.1 x10^3/uL (0.0-0.2) Sodium Level 141 mmol/L (136-145) Potassium Level 4.4 mmol/L (3.5-5.1) Chloride Level 104 mmol/L (98-107) Carbon Dioxide Level 27 mmol/L (21-32) Anion Gap 10 (6-14) Blood Urea Nitrogen 15 mg/dL (7-20) Creatinine 1.0 mg/dL (0.6-1.0) Estimated GFR (Cockcroft-Gault) 54.5 BUN/Creatinine Ratio 15 (6-20) Glucose Level 120 mg/dL (70-99) H Calcium Level 8.9 mg/dL (8.5-10.1) Total Bilirubin 0.3 mg/dL (0.2-1.0) Aspartate Amino Transferase (AST) 36 U/L (15-37) Alanine Aminotransferase (ALT) 36 U/L (14-59) Alkaline Phosphatase 75 U/L (46-116) Total Protein 6.8 g/dL (6.4-8.2) Albumin 3.2 g/dL (3.4-5.0) L Albumin/Globulin Ratio 0.9 (1.0-1.7) L Laboratory Tests 02/10/18 19:10 Laboratory Tests 02/10/18 19:10 EKG EKG [] Radiology/Procedures Radiology/Procedures [] Course & Med Decision Making Course & Med Decision Making Pertinent Labs and Imaging studies reviewed. (See chart for details) In review of the patient's documented urine cultures is noted that she consistently is sensitive to Bactrim. She was given third-generation cephalosporin in the ER, Rocephin given her most recent susceptibility profile. Agreed-upon plan post discharge will be to start the Bactrim and then follow-up with the urologist on at which time the culture results should be back sweaty modification and treatment can be continued at that time. Patient also requested a 5 day supply of Diflucan stating that the single dose never stops a yeast infection from occurring and that she finds the 5 day course is the only thing that helps her. [] Dragon Disclaimer Dragon Disclaimer This electronic medical record was generated, in whole or in part, using a voice recognition dictation system. Departure Departure Impression: Primary Impression: UTI (urinary tract infection) Disposition: 01 HOME, SELF-CARE Condition: STABLE Referrals: DIMA BARAJAS MD (PCP) Patient Instructions: Urinary Tract Infection, [id number] Scripts Fluconazole (DIFLUCAN) 50 Mg Tablet 50 MG PO DAILY for 4 Days, #4 TAB Prov: JAMAL ANTHONY MD 02/10/18 Sulfamethoxazole/Trimethoprim (BACTRIM DS TABLET) 1 Each Tablet 1 TAB PO BID, #20 TAB Prov: JAMAL ANTHONY MD 02/10/18 JAMAL ANTHONY MD Feb 10, 2018 21:09
== END 2018-02-10 21:50 | disposition home or self-care (01) ==
LOC: ER 18:27
DX: N39.0 Urinary tract infection, site not specified (principal); K21.9 Gastro-esophageal reflux disease without esophagitis; E03.9 Hypothyroidism, unspecified; G43.909 Migraine, unspecified, not intractable, without status migrainosus; Z86.73 Personal history of transient ischemic attack (TIA), and cerebral infarction without residual deficits; G89.29 Other chronic pain; Z90.49 Acquired absence of other specified parts of digestive tract; Z87.19 Personal history of other diseases of the digestive system; Z88.1 Allergy status to other antibiotic agents; Z88.5 Allergy status to narcotic agent; Z88.8 Allergy status to other drugs, medicaments and biological substances; Z91.040 Latex allergy status
CPT/HCPCS: 36415; 80053; 81001; 85025; 87086; 96365; 99284; J0690

== ENCOUNTER 2018-02-18 17:07 | Emergency (ER) | payer MEDICARE, OTHER ==
[~2018-02-18] VITALS: Ht 154.9 cm; Wt 90.3 kg
[~2018-02-18 17:07] MED LIST changes: +FLUC50TA PO; +SULF1TAB24 PO
[2018-02-18 17:50] VITALS: BP 123/78
[2018-02-18 19:06] LABS: BASO # 0.1 x10^3/uL (0.0-0.2); BASO % 1 % (0-3); EOS # 0.1 x10^3/uL (0.0-0.7); EOS % 2 % (0-3); HEMATOCRIT 38.3 % (36.0-47.0); HEMOGLOBIN 12.7 g/dL (12.0-15.5); LYMPH # 2.5 x10^3/uL (1.0-4.8); LYMPH % 35 % (24-48); MEAN CORPUSCULAR HEMOGLOBIN 29 pg (25-35); MEAN CORPUSCULAR HGB CONC 33 g/dL (31-37); MEAN CORPUSCULAR VOLUME 88 fL (79-100); MONO % 14 % (0-9); NEUT # 3.5 x10^3uL (1.8-7.7); NEUT % 48 % (31-73); PLATELET COUNT 342 x10^3/uL (140-400); RED BLOOD COUNT 4.36 x10^6/uL (3.50-5.40); RED CELL DISTRIBUTION WIDTH 18.5 % (11.5-14.5); WHITE BLOOD COUNT 7.2 x10^3/uL (4.0-11.0)
[2018-02-18 19:17] LABS: CALCIUM 9.1 mg/dL (8.5-10.1); CREATININE 0.9 mg/dL (0.6-1.0); GFR 61.5; POTASSIUM 4.2 mmol/L (3.5-5.1)
[2018-02-18 19:22] LABS: ALBUMIN 3.3 g/dL (3.4-5.0); ALBUMIN/GLOBULIN RATIO 0.8 (1.0-1.7); TOTAL BILIRUBIN 0.3 mg/dL (0.2-1.0); TOTAL PROTEIN 7.3 g/dL (6.4-8.2)
[2018-02-18 19:23] LABS: BILIRUBIN,URINE NEGATIVE (NEG); CLARITY,URINE CLEAR; COLOR,URINE YELLOW; NITRITE,URINE NEGATIVE (NEG); PH,URINE 6.5; PROTEIN,URINE NEGATIVE (NEG-TRACE); UROBILINOGEN,URINE 0.2 mg/dL (0.2 mg/dL)
[2018-02-18 19:29] LABS: BACTERIA,URINE 0 /HPF (0-FEW); RBC,URINE 0 /HPF (0-2); SQUAMOUS EPITHELIAL CELL,UR FEW /LPF
[2018-02-18] MEDS ORDERED: CEPH500C PO (20:19)
--- NOTE | 2018-02-18 20:19 | PHYS DOC ---
Past Medical History Past Medical History: Anxiety, Arthritis, Depression, Diverticulitis, GERD, Hypothyroid, Migraines, TIA, UTI, Other Additional Past Medical Histor: CHRONIC PAIN,GASTROPARESIS,pre DM,SBO,PAIN PUMP Past Surgical History: Cholecystectomy, , Knee Replacement, Tonsillectomy Additional Past Surgical Histo: HERNIA,BUNIONECTOMY BILAT FEET,FUNDOLICATION, SPINAL CORD STIMULATOR, Alcohol Use: None Drug Use: None Adult General Chief Complaint Chief Complaint: URINARY FREQUENCY HPI HPI Patient is a 72 year old female who presents to the emergency Department with concerns of a continued urinary tract infection. Patient states that she was diagnosed with a urinary tract infection at her primary care provider's office around 2-3 weeks ago she was prescribed 10 days of Bactrim. She states that the symptoms persisted and she returned to the emergency room and was given 1 dose of IV antibiotics and prescribed more Bactrim last week. Patient states she has completed that medication and last night she was up every 5 minutes having the urge to urinate. She denies any back pain, fever, nausea, vomiting, diarrhea, abdominal pain, or incontinence. Review of Systems Review of Systems Constitutional: Denies fever or chills [] Eyes: Denies change in visual acuity, redness, or eye pain [] HENT: Denies nasal congestion or sore throat [] Respiratory: Denies cough or shortness of breath [] Cardiovascular: No additional information not addressed in HPI [] GI: Denies abdominal pain, nausea, vomiting, or diarrhea [] : Denies dysuria or hematuria; reports increased urinary frequency see history of present illness [] Musculoskeletal: Denies back pain or joint pain [] Integument: Denies rash or skin lesions [] Neurologic: Denies headache, focal weakness or sensory changes [] All other systems were reviewed and found to be within normal limits, except as documented in this note. Current Medications Current Medications Current Medications Medications (Trade) Dose Ordered Sig/Suki Start Time Stop Time Status Last Admin Dose Admin Ceftriaxone Sodium 50 ml @ 100 mls/hr 1X ONCE 02/18/18 20:30 02/18/18 20:44 DC 02/18/18 20:07 100 MLS/HR Allergies Allergies Allergies Coded Allergies Type Severity Reaction Last Updated Verified prochlorperazine edisylate Allergy Severe Anaphylaxis 11/20/17 Yes prochlorperazine maleate Allergy Severe Anaphylaxis 11/20/17 Yes adhesive Allergy Intermediate 11/20/17 Yes clindamycin Allergy Intermediate extreme heartburn 11/20/17 Yes latex Allergy Intermediate 11/20/17 Yes alprazolam Adverse Reaction Severe confusion 12/23/17 Yes cyclobenzaprine Adverse Reaction Severe confusion 12/23/17 Yes risperidone Adverse Reaction Severe confusion 12/23/17 Yes ciprofloxacin Adverse Reaction Intermediate hallucinations 11/21/17 Yes ciprofloxacin HCl Adverse Reaction Intermediate hallucinations 11/21/17 Yes oxycodone Adverse Reaction Intermediate 11/21/17 Yes Physical Exam Physical Exam Constitutional: Well developed, well nourished, no acute distress, non-toxic appearance, obese. [] HENT: Normocephalic, atraumatic, bilateral external ears normal, nose normal. [] Eyes: PERRLA, conjunctiva normal, no discharge. [] Cardiovascular:Heart rate regular rhythm, no murmur [] Lungs & Thorax: Bilateral breath sounds clear to auscultation [] Abdomen: Bowel sounds normal, soft, no tenderness, no masses, no pulsatile masses. [] Skin: Warm, dry, no erythema, no rash. [] Extremities: No cyanosis, no clubbing, ROM intact, no edema. [] Neurologic: Alert and oriented X 3, normal motor function, normal sensory function, no focal deficits noted. [] Psychologic: Affect normal, judgement normal, mood normal. [] Current Patient Data Vital Signs Vital Signs Date Time Temp Pulse Resp B/P (MAP) Pulse Ox O2 Delivery O2 Flow Rate FiO2 02/18/18 17:50 98.2 84 20 123/78 (93) 90 Room Air 98.2 Lab Values Laboratory Tests Test 02/18/18 18:54 02/18/18 19:11 White Blood Count 7.2 x10^3/uL (4.0-11.0) Red Blood Count 4.36 x10^6/uL (3.50-5.40) Hemoglobin 12.7 g/dL (12.0-15.5) Hematocrit 38.3 % (36.0-47.0) Mean Corpuscular Volume 88 fL (79-100) Mean Corpuscular Hemoglobin 29 pg (25-35) Mean Corpuscular Hemoglobin Concent 33 g/dL (31-37) Red Cell Distribution Width 18.5 % (11.5-14.5) H Platelet Count 342 x10^3/uL (140-400) Neutrophils (%) (Auto) 48 % (31-73) Lymphocytes (%) (Auto) 35 % (24-48) Monocytes (%) (Auto) 14 % (0-9) H Eosinophils (%) (Auto) 2 % (0-3) Basophils (%) (Auto) 1 % (0-3) Neutrophils # (Auto) 3.5 x10^3uL (1.8-7.7) Lymphocytes # (Auto) 2.5 x10^3/uL (1.0-4.8) Monocytes # (Auto) 1.0 x10^3/uL (0.0-1.1) Eosinophils # (Auto) 0.1 x10^3/uL (0.0-0.7) Basophils # (Auto) 0.1 x10^3/uL (0.0-0.2) Sodium Level 140 mmol/L (136-145) Potassium Level 4.2 mmol/L (3.5-5.1) Chloride Level 103 mmol/L (98-107) Carbon Dioxide Level 27 mmol/L (21-32) Anion Gap 10 (6-14) Blood Urea Nitrogen 10 mg/dL (7-20) Creatinine 0.9 mg/dL (0.6-1.0) Estimated GFR (Cockcroft-Gault) 61.5 BUN/Creatinine Ratio 11 (6-20) Glucose Level 103 mg/dL (70-99) H Calcium Level 9.1 mg/dL (8.5-10.1) Total Bilirubin 0.3 mg/dL (0.2-1.0) Aspartate Amino Transferase (AST) 70 U/L (15-37) H Alanine Aminotransferase (ALT) 51 U/L (14-59) Alkaline Phosphatase 70 U/L (46-116) Total Protein 7.3 g/dL (6.4-8.2) Albumin 3.3 g/dL (3.4-5.0) L Albumin/Globulin Ratio 0.8 (1.0-1.7) L Urine Collection Type Unknown Urine Color Yellow Urine Clarity Clear Urine pH 6.5 Urine Specific [place] 1.010 Urine Protein Negative mg/dL (NEG-TRACE) Urine Glucose (UA) Negative mg/dL (NEG) Urine Ketones (Stick) Negative mg/dL (NEG) Urine Blood Negative (NEG) Urine Nitrite Negative (NEG) Urine Bilirubin Negative (NEG) Urine Urobilinogen Dipstick 0.2 mg/dL (0.2 mg/dL) Urine Leukocyte Esterase Trace (NEG) Urine RBC 0 /HPF (0-2) Urine WBC 1-4 /HPF (0-4) Urine Squamous Epithelial Cells Few /LPF Urine Bacteria 0 /HPF (0-FEW) Urine Mucus Slight /LPF Laboratory Tests 02/18/18 18:54 Laboratory Tests 02/18/18 18:54 EKG EKG [] Radiology/Procedures Radiology/Procedures [] Course & Med Decision Making Course & Med Decision Making Pertinent Labs and Imaging studies reviewed. (See chart for details) dx: uti Pt was given one dose of Rocephin 1 gm IV in the ER. Prescription for keflex written. Increase clear fluid intake. Avoid bladder irritants such as carbonation, caffeine, and spicy foods. Follow-up with your primary care doctor in the next 2 days. Return to the ER for symptoms worsen. []Patient verbalized an understanding of home care, medications, follow-up, and return to ED instructions and was in agreement with the plan of care. Dragon Disclaimer Dragon Disclaimer This electronic medical record was generated, in whole or in part, using a voice recognition dictation system. Departure Departure Impression: Primary Impression: UTI (urinary tract infection) Disposition: 01 HOME, SELF-CARE Condition: STABLE Referrals: DIMA BARAJAS MD (PCP) Patient Instructions: Urinary Tract Infection, [id number] Additional Instructions: Fill prescription and use as directed. Increase clear fluid intake. Avoid bladder irritants such as carbonation, caffeine, and spicy foods. Follow-up with your primary care doctor in the next 2 days. Return to the ER for symptoms worsen. Scripts Cephalexin (CEPHALEXIN) 500 Mg Capsule 1 CAP PO BID, #14 CAP 0 Refills Prov: JASON AGUERO APRN 02/18/18 Problem Qualifiers Primary Impression: UTI (urinary tract infection) Urinary tract infection type: site unspecified Hematuria presence: without hematuria Qualified Codes: N39.0 - Urinary tract infection, site not specified JASON AGUERO APRN Feb 18, 2018 20:19
== END 2018-02-18 20:44 | disposition home or self-care (01) ==
LOC: ER 17:07
DX: N39.0 Urinary tract infection, site not specified (principal); K21.9 Gastro-esophageal reflux disease without esophagitis; E03.9 Hypothyroidism, unspecified; G43.909 Migraine, unspecified, not intractable, without status migrainosus; G89.29 Other chronic pain; Z86.73 Personal history of transient ischemic attack (TIA), and cerebral infarction without residual deficits; Z88.5 Allergy status to narcotic agent; Z88.8 Allergy status to other drugs, medicaments and biological substances; Z88.1 Allergy status to other antibiotic agents; Z91.040 Latex allergy status
CPT/HCPCS: 36415; 80053; 81001; 85025; 96365; 99284; J0690; 87086

== ENCOUNTER → 2018-03-15 | Outpatient (CLI) | payer MEDICARE, OTHER ==
[2018-02-18 17:50] VITALS: BP 123/78
[~2018-03-15] MED LIST changes: +BUPIVACAINE MPF 0.75% 30 ML VIAL. ONE; +CEPH500C PO; +cloNIDine PF 5,000 MCG/10 ML VIAL EP ONE; +fentaNYL PF VIAL 250 MCG/5 ML VIAL ONE
--- NOTE | 2018-03-15 18:05 | PAIN ---
DATE OF SERVICE: 03/15/2018 PROGRESS NOTE FOR PAIN CLINIC DIAGNOSES: 1. Cervical radiculopathy with post-cervical laminectomy syndrome. 2. Bilateral knee joint pain with primary osteoarthritis, bilateral knee joints. 3. Lumbar degenerative disk disease with intrathecal pump and spinal cord stimulation therapy. HISTORY OF PRESENT ILLNESS: The patient is a 72-year-old female who returns for followup status post intrathecal pump management as well as spinal cord stimulator management, also medicine management orally. The patient reports she is doing fairly well with all these modalities with about a 70-80% improvement overall without any significant side effects. The patient is here for pump refill today. She reports her PTM is working well and still gets good response with the boluses, reports no new motor or sensory deficits, no new bowel or bladder incontinence or other complaints, sleeping well at night. The patient reports her main complaint is pain in the base of the neck and shoulders, also in the low back. The patient reports it is burning, aching, sharp, on and off in intensity, worse with activity, better with lying down. She has had a cold recently with a cough, which has exacerbated some of the back pain as well. The patient reports otherwise her pain a 1 on a scale of 10 at its worst, average and at its least and is a 1 on a scale of 10 today. The patient reports no other changes. PHYSICAL EXAMINATION: VITAL SIGNS: The patient's blood pressure is 158/93, pulse 83, respirations 18, temperature 97.9 degrees Fahrenheit. Height is 5 feet 2 inches, weighs 195 pounds. GENERAL: The patient is awake, alert, oriented, appropriate, very pleasant demeanor. HEENT: Head is normocephalic, atraumatic. Extraocular muscles are intact and symmetrical. Oral cavity: Mucous membranes moist and pink. Dentition is intact. NECK: Shows anterior throat supple without palpable lymphadenopathy noted. Swallow reflex is symmetrical. CHEST: Shows normal on inspection. Breath sounds clear to auscultation bilaterally. HEART: Shows S1, S2 clear. No murmurs auscultated. ABDOMEN: Soft, nontender, nondistended. No palpable organomegaly is noted. No rebound or guarding demonstrated. BACK: Shows spine grossly in the midline. Normal appearing thoracic kyphosis. Some slight increase in thoracic curvature. Lumbar paraspinous muscle shows symmetrical with moderate tenderness with palpation in the lumbar paraspinous muscles, but without radiation. Cervical paraspinous muscle shows some moderate tenderness as well with palpation, some slight flattening of cervical lordotic curvature, but without radiation as well. The patient has good rotational motion of cervical spine, both laterally as well as extension and flexion without significant difficulty or pain reported. It is good for low back with rotation as well without difficulty with right to left greater than 10 degrees rotation, extension 10 degrees, forward flexion 45 degrees without significant pain reported. EXTREMITIES: The patient's lower extremities show deep tendon reflexes 1+ in the patellar and tendo-calcaneus tendons with equal motor exam is approximately 4 on a scale of 5, but equal and symmetrical bilaterally. Upper extremities show deep tendon reflexes 2+ in the biceps and triceps tendons. Motor exam is strong with dryerman/woman strength rated 5/5. Peripheral pulses are 2+ radial, 1+ posterior tibia. No peripheral edema is noted. PLAN: Options were discussed with the patient. The patient's old chart was reviewed as her current medication regimen updated. Current review of systems updated today as well. We will proceed with intrathecal pump refill and reprogramming as well as PTM reprogramming today. Risks were discussed including but not limited to bleeding, infection, possibility of extravasation of medication and possible associated measures as well as poor results regarding pain control. The patient understands and wished to proceed. The patient is to return to clinic prior to 05/13/2018, which is her next refill date. She was also given refill prescription for Fioricet as she does well with the headaches. She was given instructions, side effects to be aware of discussed each of medications. The patient will follow up as scheduled. DIAGNOSES: 1. Cervical radiculopathy with post-cervical laminectomy syndrome. 2. Bilateral knee joint pain with primary osteoarthritis of knee joint. 3. Lumbar degenerative disk disease. PROCEDURE: Intrathecal pump refill and reprogramming and PTM reprogramming under sterile prep and drape using local anesthetic topical. MEDICATIONS: Two mL of the old medication was withdrawn and discarded. A 22-gauge non-cutting [employer] kit needle and 4 mL of medication was replaced containing fentanyl, clonidine and bupivacaine as documented. Needle was removed. Sterile bandage was applied. The patient tolerated procedure well, had no complications. Pump was then reprogrammed for volume as well as PTM settings. CHITRA EPPERSON MD DR: TRAV/benito JOB#: [id number] / [id number]
== END | disposition home or self-care (01) ==
LOC: PNCL 11:57
PROVIDERS: ATTEND Anesthesiology
DX: M51.16 Intervertebral disc disorders with radiculopathy, lumbar region (principal); M96.1 Postlaminectomy syndrome, not elsewhere classified; M17.0 Bilateral primary osteoarthritis of knee; Z88.1 Allergy status to other antibiotic agents; Z88.5 Allergy status to narcotic agent; Z88.8 Allergy status to other drugs, medicaments and biological substances; Z91.040 Latex allergy status
CPT/HCPCS: 95991; J0735; J3010; J3490

== ENCOUNTER → 2018-04-09 | Outpatient (CLI) | payer MEDICARE, OTHER ==
[~2018-04-09] MED LIST changes: -BUPIVACAINE MPF 0.75% 30 ML VIAL. ONE; -HYDR-2758 PO; +HYDR-2761 PO; -cloNIDine PF 5,000 MCG/10 ML VIAL EP ONE; -fentaNYL PF VIAL 250 MCG/5 ML VIAL ONE
--- NOTE | 2018-04-09 14:12 | KCIC ---
CT ABDOMEN PELVIS WO CONTRAST Indication: Abdominal pain. Patient has a pain stimulator. Umbilical and epigastric pain for one month. History of cholecystectomy and hernia repair. Exposure: One or more of the following individualized dose reduction techniques were utilized for this examination: 1. Automated exposure control 2. Adjustment of the mA and/or kV according to patient size 3. Use of iterative reconstruction technique. Comparison: 01/20/2018 Contrast: No intravenous contrast given. No oral contrast per request. Evaluation of solid viscera, bowel and vasculature is compromised by the noncontrast technique. Lower thorax: Lung bases are clear. Liver: Unremarkable Spleen: Unremarkable Pancreas: Unremarkable Adrenals: No evidence of mass. Kidneys: No obvious mass. Urinary tracts: Tiny nonobstructive calculus lower pole right kidney Gallbladder: Surgically absent Aorta: Nonaneurysmal Lymph nodes: No significant enlargement GI tract: Diverticulosis. No evidence of an acute colitis. No evidence of bowel obstruction. Appendix is normal. Reproductive organs:No evidence of mass. Urinary bladder: Unremarkable. Peritoneum: No evidence of pneumoperitoneum. No free fluid. Abdominal wall: Small fat-containing shallow hernia at the anterior upper abdominal wall, similar to prior study. Spine: Degenerative spondylosis. Postsurgical changes of the lower spine. Spinal stimulator leads and PAC are identified. Bones: No destructive process identified. External Soft Tissue: No acute findings. IMPRESSION: 1. Tiny nonobstructive right lower pole renal calculus is stable. 2. No acute findings in the abdomen or pelvis. 3. Mild diverticulosis. Electronically signed by: Clark Martinez MD (04/09/2018 2:08 PM) [id number]
== END | disposition home or self-care (01) ==
LOC: KCIC CT 10:15
PROVIDERS: ATTEND Internal Medicine Gastroenterology
DX: N20.0 Calculus of kidney (principal); K57.30 Diverticulosis of large intestine without perforation or abscess without bleeding; M47.896 Other spondylosis, lumbar region; E11.9 Type 2 diabetes mellitus without complications; Z90.49 Acquired absence of other specified parts of digestive tract; Z86.69 Personal history of other diseases of the nervous system and sense organs
CPT/HCPCS: 74176

== ENCOUNTER → 2018-05-11 | Outpatient (CLI) | payer MEDICARE, OTHER ==
[~2018-05-11] MED LIST changes: +BUPIVACAINE MPF 0.75% 30 ML VIAL. ONE; +ESZO3TAB28 PO; -PANT40TA3 PO; +PANT40TA77 PO; -SENN1TAB21 PO; +SENN1TAB62 PO; +SIMV20TA3 PO; +cloNIDine PF 5,000 MCG/10 ML VIAL EP ONE; +fentaNYL PF VIAL 250 MCG/5 ML VIAL ONE
--- NOTE | 2018-05-11 21:25 | PAIN ---
DATE OF SERVICE: 05/11/2018 PROGRESS NOTE FOR PAIN CLINIC DIAGNOSES: 1. Cervical radiculopathy with cervical post-laminectomy syndrome. 2. Bilateral knee joint pain with primary osteoarthritis, bilateral knees. 3. Lumbar degenerative disk disease with intrathecal pump and spinal cord stimulator therapy. HISTORY OF PRESENT ILLNESS: The patient is a 72-year-old female who returns for followup status post intrathecal pump management and PTM management and also spinal cord stimulator management and oral medication management. The patient reports she is doing fairly well, has been on very stable regimen with the medications and had no side effects significantly, is here for pump refill today and reprogramming. The patient reports still significant pain in the base of the neck and shoulders as well as the low back, mid back but some days, worse than others and most days, she is doing fairly well. The patient still maintains good mobility. She has had both knees replaced, one most recently and doing fairly well except for with stairs. The patient reports that she sleeps well at night. The pain is much less with sitting or lying down, does not awaken her from sleep. The patient reports the pain is off and on in intensity, aching and tight in the shoulders, neck as well as the low back and legs and hips. The patient reports still some knee pain but much better since her surgeries. The patient reports the pain is a 5 on a scale of 10 at its worst, 5 on average and 1 at its least and is a 5 today. The patient reports no new motor or sensory deficits and no new changes. Again, no side effects with medications and using her stimulator with good coverage and good stimulation keeping it charged as well. PHYSICAL EXAMINATION: VITAL SIGNS: The patient's blood pressure 130/84, pulse 78, respirations 18 and temperature 98.1 degrees Fahrenheit. Height is 5 feet 2 inches and weight is 191 pounds. GENERAL: The patient is awake, alert, oriented, appropriate and very pleasant demeanor. The patient is accompanied by her . HEENT: Head shows normocephalic and atraumatic. The patient is wearing eyeglasses. Extraocular movements are intact and symmetrical. Oral cavity: Mucous membranes moist and pink. Dentition is intact. NECK: Shows anterior throat supple without palpable lymphadenopathy noted. Swallow reflex symmetrical. CHEST: Shows normal with inspection. Breath sounds clear to auscultation bilaterally. HEART: Shows S1 and S2 clear. No murmurs auscultated. ABDOMEN: Soft, nontender and nondistended. No palpable organomegaly is noted. No rebound or guarding demonstrated. BACK: Shows spine grossly in the midline. Slight exaggeration of the thoracic kyphosis and flattening of lumbar lordotic curvature. Cervical paraspinous muscle shows symmetrical on inspection, with palpation shows some moderate tenderness diffusely throughout the upper, middle and lower distribution of the paraspinous muscles as well as superior medial trapezius but without trigger points, without radiation. The patient has good rotational motion of the cervical spine, both laterally as well as extension and flexion without significant difficulty. The patient's lumbar spine shows some moderate tenderness diffusely as well throughout the upper, middle and lower distributions but with good rotation, extension, flexion as well without significant pain reported. ABDOMEN: The patient's abdomen shows easily palpable intrathecal pump in the left lower quadrant, which is nontender and well-healed surgical scarring above the pump. EXTREMITIES: Lower extremities show deep tendon reflexes 1+ in the patellar and tendo-calcaneus tendons. Motor exam is approximately 4 on a scale of 5 but symmetrical dorsiflexion, extension and equal. Peripheral pulses are 1+ posterior tibial. Upper extremities show deep tendon reflexes at 2+ biceps and triceps tendons. Motor exam is approximately 4 on a scale of 5 with clay plant treater strength but symmetrical as well and no peripheral edema is noted. Peripheral pulses are 2+ in the radial distribution. Options were discussed with the patient. The patient's old chart was reviewed as well as his current medication regimen updated. Current review of systems updated today as well and we will refill the patient's medication, both tramadol and hydrocodone with instructions, side effects to be aware of for 2-month period. The patient had appropriate K-TRACS reporting as well as appropriate urinalysis. We will renew the patient's narcotic contract today as well as urinalysis today as a routine screening. The patient was given instruction as well as side effects to be aware of with each of these medications. Also, we will proceed with intrathecal pump refill and reprogramming as well as PTM reprogramming. Risks were discussed including but not limited to bleeding, infection, extravasation of medication and possible associated measures as well as poor results regarding pain control. The patient understands and wished to proceed. The patient will return to the clinic prior to July 09 as will be the next refill date and she will keep an eye on the refill date with the PTM adjustment as well. DIAGNOSES: Cervical radiculopathy with post-cervical laminectomy syndrome, bilateral knee joint pain with osteoarthritis and lumbar degenerative disk disease. PROCEDURE: Intrathecal pump refill and reprogramming and PTM reprogramming under sterile prep and drape using a topical local anesthetic. A 22-gauge noncutting Docalyticstronic needle used to enter the pump without difficulty. A 5 mL of the old medication was withdrawn and discarded and 40 mL of the new medication containing bupivacaine, fentanyl and clonidine was then replaced in the pump. Needle was removed. Sterile bandage was applied. Pump was then reprogrammed for volume as well as PTM settings. The patient tolerated procedure well and had no complications. CHITRA EPPERSON MD DR: TRAV/benito JOB#: [id number] / [id number]
== END | disposition home or self-care (01) ==
LOC: PNCL 11:04
PROVIDERS: ATTEND Anesthesiology
DX: M96.1 Postlaminectomy syndrome, not elsewhere classified (principal); M51.36 Other intervertebral disc degeneration, lumbar region; M17.0 Bilateral primary osteoarthritis of knee; Z88.1 Allergy status to other antibiotic agents; Z88.5 Allergy status to narcotic agent; Z88.8 Allergy status to other drugs, medicaments and biological substances; Z91.040 Latex allergy status
CPT/HCPCS: 62370; 95991; J0735; J3010; J3490

== ENCOUNTER → 2018-07-09 | Outpatient (CLI) | payer MEDICARE, OTHER ==
[~2018-07-09] MED LIST changes: +LIDOCAINE/PRILOCAINE TOPICAL CREAM 5GM TUBE. TP ONE; +PANT40TA3 PO; -PANT40TA77 PO
--- NOTE | 2018-07-09 23:40 | PAIN ---
DATE OF SERVICE: 07/09/2018 PROGRESS NOTE FOR PAIN CLINIC DIAGNOSES: 1. Cervical radiculopathy with cervical post-laminectomy syndrome. 2. Bilateral knee joint pain with osteoarthritis. 3. Lumbar degenerative disk disease. HISTORY OF PRESENT ILLNESS: The patient is a 72-year-old female who returns for a followup, status post intrathecal pump and spinal cord stimulator therapy. The patient is due for a pump refill today and reprogramming. The patient reports she has been using her PTM more often as she has some pain in the right shoulder as well and it does help that as well significantly. The patient also reports good control of pain in the neck and shoulders with the medication and with the spinal cord stimulator in the low back and legs. The patient reports she is still keeping the stimulator charged with good paresthesia and good coverage as well as good coverage with the intrathecal pump and PTM without significant side effects. The patient reports she has lost some weight as she has been dieting and indeed she has dropped her weight to 189 pounds on today's visit. At last visit, it was 191. The patient reports no new motor or sensory deficits, no side effects or other complaints. Still some pain in the base of the neck and shoulders, more on the right than the left; in the right upper extremity; also some low back pain. Again, is very well controlled with a combination of the spinal cord stimulator and the intrathecal pump. The patient reports pain is a 9 on a scale of 10 at its worst, 5 on average and a 2 at its least and is a 2 today. The patient reports it is achy and tight at times, especially after a long day when she has been up on her feet quite a bit and then when she is lying down in bed, she notices it more as a burning, cramping pain in her low back. It is constant, unbearable at times, severe. All of these qualities depending on the day. She is still taking her tramadol as well as hydrocodone, which does decrease the pain significantly and again without side effects as well. The patient reports overall reduction in pain by about 75%. PHYSICAL EXAMINATION: VITAL SIGNS: Today, the patient's blood pressure is 159/93, pulse 67, respirations are 16, temperature is 98.2 degrees Fahrenheit, height is 5 feet 2 inches and weight is 189 pounds. GENERAL: The patient is awake, alert, oriented, appropriate, very pleasant demeanor. HEENT: Head shows normocephalic, atraumatic. Extraocular movements intact and symmetrical. Oral cavity: Mucous membranes are moist and pink. Dentition is intact. NECK: Shows anterior throat supple without palpable lymphadenopathy noted. Swallow reflex symmetrical. CHEST: Shows normal with inspection. Breath sounds are clear to auscultation bilaterally. HEART: Shows S1 and S2 clear. No murmurs auscultated. ABDOMEN: Obese, soft, nontender, nondistended. No palpable organomegaly is noted. No rebound or guarding demonstrated. Well-healed surgical scarring is noted and she has easily palpable intrathecal pump over the left lower quadrant, which is mobile, but nontender. BACK: The patient's back shows spine grossly in the midline. Slight exaggeration of thoracic kyphosis, some minor cervical lordotic flattening and lumbar lordotic flattening. The patient shows some moderate tenderness with palpation of the paraspinous musculature in the cervical distribution bilaterally, but only diffusely without significant radiation. The patient has good rotational motion of the cervical spine without significant difficulty in both right and left, greater than 45 degrees as well as extension and flexion without difficulty. EXTREMITIES: The patient's upper extremities show deep tendon reflexes 2+ in the biceps and triceps tendons. Motor exam is strong with approximately 4 on a scale of 5. Customs Agent strength is equal and symmetrical, right and left. Peripheral pulses are 2+ in radial distribution. No peripheral edema is noted bilaterally. The patient's lower extremities show deep tendon reflexes at 1+/4 in the bilateral patellar and tendocalcaneus tendons. Well-healed surgical scar is noted on both of the knees. Peripheral pulses are 1+ in the posterior tibia. No peripheral edema is noted. Options were discussed with the patient. The patient's old chart was reviewed as her current medication regimen updated. Current review of systems updated today as well and we will refill the patient's intrathecal pump. Also, reprogramming with PTM reprogramming as well. Risks were discussed including but not limited to bleeding, infection, possibility of intravascular injection sequelae, extravasation of the pump, medication requiring resuscitative measures as necessary as well as poor results regarding pain control. The patient understands and wished to proceed. The patient will return to the clinic prior to August 27 as her pump battery is due to be replaced. We will make the arrangements through outpatient surgery to replace the intrathecal pump with refill done at that time at the end of July. DIAGNOSES: 1. Cervical radiculopathy with post-cervical laminectomy syndrome. 2. Bilateral knee joint pain with osteoarthritis. 3. Lumbar degenerative disk disease. PROCEDURE: Intrathecal pump refill and reprogramming and PTM reprogramming. Under sterile prep and drape using local anesthetic topical, the patient's pump was easily identified in the left lower quadrant. Using IdeaOffer kit needle, it was entered using a 22-gauge noncutting needle without difficulty. A 2 mL of old medication was withdrawn and discarded and 40 mL of the new medication containing bupivacaine, fentanyl and clonidine was then replaced. Needle was withdrawn. Sterile bandage was applied. Pump was then reprogrammed for volume and settings as well as PTM settings and PTM handheld was reprogrammed as well. The patient tolerated the procedure well, had no complications. CHITRA EPPERSON MD DR: TRAV/benito JOB#: [id number] / [id number]
== END | disposition home or self-care (01) ==
LOC: PNCL 11:19
PROVIDERS: ATTEND Anesthesiology
DX: M51.36 Other intervertebral disc degeneration, lumbar region (principal); M17.0 Bilateral primary osteoarthritis of knee; M96.1 Postlaminectomy syndrome, not elsewhere classified; Z88.1 Allergy status to other antibiotic agents; Z88.5 Allergy status to narcotic agent; Z88.8 Allergy status to other drugs, medicaments and biological substances; Z91.040 Latex allergy status; Z91.048 Other nonmedicinal substance allergy status
CPT/HCPCS: 62370; J0735; J3010; J3490; 95991

== ENCOUNTER 2018-08-24 11:13 | Day surgery (SDC) | payer MEDICARE, OTHER ==
--- NOTE | 2018-08-24 11:08 | PREOP HP ---
DATE OF SERVICE: 08/24/2018 PRE-OPERATIVE HISTORY AND PHYSICAL: DIAGNOSES: 1. Cervical radiculopathy with cervical post-laminectomy syndrome. 2. Bilateral knee joint pain with osteoarthritis. 3. Lumbar degenerative disk disease. HISTORY OF PRESENT ILLNESS: This is a 73-year-old female with intrathecal pump and spinal cord stimulator therapy. The patient's pump is due for exchange as the battery is nearing its end of life span. The patient reports she is using PTM more often, has some pain in the right shoulder as well. It does help her in getting significantly good pain control in the neck and shoulders with the medication and the spinal cord stimulator in the low back and legs. The patient reports she is still keeping her stimulator charged with good paresthesia and good coverage as well with the intrathecal pump and PTM use without significant side effects. The patient still has some pain in the base of the neck and shoulders, more on the right than the left. The right upper extremity is well controlled again with the stimulator and intrathecal pump. The patient reports her pain is 9 on a scale of 10 at its worst, 5 on average and 2 at its least, is a 2 at time of this dictation. PHYSICAL EXAMINATION: VITAL SIGNS: The patient's blood pressure is 159/93, pulse 67, respirations 16, temperature 98.2 degrees Fahrenheit, height is 5 feet 2 inches, weight is 189 pounds. GENERAL: The patient is awake, alert, oriented, appropriate, very pleasant demeanor. HEENT: Shows normocephalic, atraumatic. Extraocular movements are intact and symmetrical. Oral cavity, mucous membranes are moist and pink. Dentition is intact. NECK: Shows anterior throat supple without palpable lymphadenopathy noted. Swallow reflex symmetrical. CHEST: Shows normal on inspection. Breath sounds are clear bilaterally. HEART: Shows S1, S2 clear. No murmurs auscultated. ABDOMEN: Obese, soft, nontender, nondistended. No palpable organomegaly is noted. No rebound or guarding demonstrated. A well-healed surgical scarring is noted. Easily palpable intrathecal pump over the left lower quadrant mobile, but nontender. BACK: The patient's back shows spine grossly in the midline. Slight exaggeration of thoracic kyphosis, some minor cervical lordotic flattening and lumbar lordotic flattening. The patient shows moderate tenderness with palpation of paraspinous muscles in the cervical distribution bilaterally, but only diffusely without significant radiation. EXTREMITIES: Show upper extremity deep tendon reflexes 2+ in the biceps and triceps tendons. Motor exam is strong with 4 out of a scale of 5 with internal medicine specialist strength, bicep and tricep flexion and symmetrical. Peripheral pulses are 2+ radial distribution. No peripheral edema is noted. PLAN: Options were discussed with the patient. The patient's old chart was reviewed as was her current medication updated and review of systems updated today. We will plan on scheduling for intrathecal pump replacement as outlined. We will have intrathecal pump refill available for the surgical procedure as well for the new pump. CHITRA EPPERSON MD DR: TRAV/benito JOB#: [id number] / [id number]
[~2018-08-24 11:13] MED LIST changes: +IV RINGERS,LACTATED 1000ML 1,000 ML IV SCH; -LIDOCAINE/PRILOCAINE TOPICAL CREAM 5GM TUBE. TP ONE
[2018-08-24] MEDS ORDERED: LIDOCAINE 1%/EPI 1:100,000 20 ML VIAL. ONE (12:35)
[2018-08-24] MEDS ORDERED: PROPOFOL 50 ML IV ONE (13:13)
[2018-08-24] MEDS ORDERED: PROPOFOL 20 ML IV ONE ×3 (13:16→14:02)
[2018-08-24] MEDS ORDERED: LIDOCAINE 2% PF 5 ML VIAL. ONE (13:16)
[2018-08-24] MEDS ORDERED: ePHEDrine PF IN SALINE 50 MG/10 ML SYRINGE. IV ONE (13:49)
[2018-08-24] MEDS ORDERED: MORPHINE SULFATE 2 MG/ML VIAL. IV PRN (14:20)
[2018-08-24] MEDS ORDERED: fentaNYL PF VIAL 100 MCG/2 ML VIAL IV PRN ×2 (14:20)
[2018-08-24] MEDS ORDERED: ONDANSETRON PF 4 MG/2 ML VIAL. IV PRN (14:20)
[2018-08-24] MEDS ORDERED: HYDROmorphone 2 MG/ML VIAL IV PRN (14:20)
[2018-08-24] MEDS ORDERED: MORPHINE SULFATE 4 MG/ML VIAL. IV PRN (14:20)
[2018-08-24] MEDS ORDERED: PROCHLORPERAZINE 10 MG/2 ML VIAL. IV PRN (14:20)
--- NOTE | 2018-08-24 14:20 | DISCH ---
DISCHARGE INSTRUCTIONS Condition on Discharge Condition on Discharge: Stable Activity After Discharge Activity Instructions for Disc: Activity as tolerated, Avoid exertion Bathing Instructions: Shower-keep dressing dry, No Tub Bath until see Lifting Instructions after Dis: No heavy lifting Exercise Instruction after Dis: Exercise per therapy, Progress as tolerated Driving Instructions after Dis: Do not drive Weight Bearing Status after Di: Full weight bearing Diet after Discharge Diet after Discharge: Regular Diet Texture: Regular Liquid Texture: Thin Liquid Swallowing Supervision: None needed Wound Incision Care Wound/Incision Care: Ice to area for comfort, Keep wound/cast CDI, Keep wound elevated, Do not change dressing Contacting the [facility] after DC Call your doctor for: Concerns you may have Treatment/Equipment after DC Adaptive Equipment Issued: None CHITRA EPPERSON MD Aug 24, 2018 14:20
[2018-08-24] MEDS ORDERED: fentaNYL PF VIAL 100 MCG/2 ML VIAL ONE (14:35)
[2018-08-24 16:06] VITALS: BP 153/72
--- NOTE | 2018-08-27 12:22 | OP ---
DATE OF SURGERY: 08/24/2018 PREOPERATIVE DIAGNOSES: Cervical radiculopathy with cervical post-laminectomy syndrome as well as lumbar degenerative disk disease. Intrathecal pump battery failure, at end of life span. POSTOPERATIVE DIAGNOSES: Cervical radiculopathy with cervical post-laminectomy syndrome as well as lumbar degenerative disk disease. Intrathecal pump battery failure, at end of life span. PROCEDURE: Intrathecal pump removal and replacement. BLOOD LOSS: Less than 10 mL. ANESTHESIA: General LMA. DESCRIPTION OF PROCEDURE: The patient was consented for procedure with risks discussed with she and her including, but not limited to bleeding, infection, possibility of revision of the entire system with intrathecal access and tubing replacement as well as postoperative pain and poor results regarding pain control. The patient and her understand. The patient wished to proceed. The patient was taken to the operating room #8 and transferred to bed in supine position on her own power. ASA monitors were then placed. General anesthesia was induced with pressure points padded. The patient's abdomen was identified. I then sterilely prepped and draped in usual fashion with draping after 3 minutes of prep time to drive with Dilaudid. Examining the patient's left lower quadrant, there was easily palpable intrathecal pump and a previous surgical scar. 1% lidocaine without epinephrine was used to instill subcutaneous tissue parallel to the previous scar in a transverse fashion lateral to medial approximately 10 cm. At this time, a 10 blade scalpel was used to incise the area of anesthetized skin and to dissect through the subcutaneous tissues. Local hemorrhage was controlled using pressure and irrigation. The intrathecal pump was easily identified and using both blunt and sharp dissection, the connective tissue covering it was incised and the pump was expressed from the pocket without difficulty. Pump was inspected showing no obvious signs of damage. The intrathecal pump tubing was connected and secured in good condition as well without any signs of damage on the tubing that was visible also. The patient's new pump was previously primed with new medication containing clonidine, bupivacaine and morphine and primed through its internal systems. The old pump was removed with pressure on the non-suturing connection from the previous pump, which was removed very easily. Old pump was set aside on the backtable. New pump was identified and placed on to the tubing again using the suture-less connector without difficulty. This was secured and verified easily to rotate, but without any slippage when pulled away from the connection point. At this time, the pocket was again identified. No local hemorrhage was identified within the pocket itself or through the subcutaneous tissues leading to the incision. The pocket was then irrigated x 3 with bacitracin irrigation, again reinspected without any local hemorrhage noted. Pump was then placed into the pocket and using 2-0 silk suture, was secured at the lateral aspect of the pump anchoring device without difficulty. At this time, 2-0 Vicryl sutures were used to close the subcutaneous tissues and fascia over the new pump. We will verify that the access port was facing outward of the abdominal wall for access. This was done in interrupted fashion with 2-0 Vicryl and then, running suture of 2-0 Vicryl was used to close the more superficial fatty fascial layer in running fashion once again and the skin was then closed using a running fashion 3-0 Vicryl. Sterile bandage was applied, Steri-Strips and island dressing with Tegaderm. The patient tolerated procedure well, had no immediate complications and was taken to recovery room in awake good and stable condition. We will have the patient follow up in the office approximately 1 week for wound check at that time. CHITRA EPPERSON MD DR: TRAV/benito JOB#: [id number] / [id number]
--- NOTE | 2018-09-18 11:06 | PDOC4 ---
OPERATIVE NOTE Date: Date: Aug 24, 2018 Pre-Op Diagnosis: post laminectomy syndrome; failed intrathecal pump Post-Op Diagnosis: same Procedure Performed: removal and replacement intrathecal pump Surgeon: Michael Anesthesia Type: GEN Blood Loss: 10cc Specimans Obtained: old intrathecal pump Findings: as dictated Complications: None CHTIRA EPPERSON MD September 18, 2018 11:06
== END 2018-08-24 16:24 | disposition home or self-care (01) ==
LOC: SURG 11:13
PROVIDERS: ATTEND Anesthesiology
DX: Z45.1 Encounter for adjustment and management of infusion pump (principal); M51.36 Other intervertebral disc degeneration, lumbar region; M96.1 Postlaminectomy syndrome, not elsewhere classified; M17.0 Bilateral primary osteoarthritis of knee; Z88.1 Allergy status to other antibiotic agents; Z88.5 Allergy status to narcotic agent; Z88.8 Allergy status to other drugs, medicaments and biological substances; Z91.048 Other nonmedicinal substance allergy status
CPT/HCPCS: 62362; C1772; J0171; J0690; J0735; J2001; J2704; J3010; J3490

== ENCOUNTER → 2018-08-31 | Outpatient (CLI) | payer MEDICARE, OTHER ==
[2018-08-24 16:06] VITALS: BP 153/72
[~2018-08-31] MED LIST changes: -BUPIVACAINE MPF 0.75% 30 ML VIAL. ONE; -IV RINGERS,LACTATED 1000ML 1,000 ML IV SCH; -cloNIDine PF 5,000 MCG/10 ML VIAL EP ONE; -fentaNYL PF VIAL 250 MCG/5 ML VIAL ONE
--- NOTE | 2018-09-01 00:15 | PAIN ---
DATE OF SERVICE: 08/31/2018 DIAGNOSES: 1. Cervical radiculopathy with post-cervical laminectomy syndrome. 2. Bilateral knee joint pain with primary osteoarthritis. 3. Degenerative disk disease, lumbar, with intrathecal pump and spinal cord stimulation therapy HISTORY OF PRESENT ILLNESS: The patient is a 73-year-old female who returns for followup status post intrathecal pump replacement one week ago. The patient returns for evaluation and for a pump interrogation and reprogramming if necessary. The patient reports she is doing very well. The abdomen on the left lower side is sore from the procedure, but otherwise doing quite well. She was up walking around, going to the store on the day after the procedure without significant increase in pain. The patient reports she has only used her PTM device 3 times since last week and feels that the level of the pump set at this time is adequate, and she has not been very active, but we discussed that if this changes with activity, then we will reprogram in the future. Otherwise, she is doing quite well. No side effects and is quite pleased with her ability to sleep at night. She is comfortable during the day. Again, only used the PTM 3 times in 1 week. The patient reports no new motor or sensory deficits or other complaints, still some significant bruising in the abdomen from the procedure, but otherwise doing quite well. The patient reports no new other concerns. PHYSICAL EXAMINATION: VITAL SIGNS: The patient's blood pressure 137/83, pulse 77, respirations 18, temperature 97.5 degrees Fahrenheit. Height is 5 feet 2 inches, weighs 182 pounds. GENERAL: The patient is awake, alert, oriented, appropriate, very pleasant demeanor. The patient is accompanied by her . HEENT: Shows normocephalic, atraumatic. Extraocular movements intact and symmetrical. Oral cavity: Mucous membranes moist and intact. NECK: Shows anterior throat supple. CHEST: Shows breath sounds clear to auscultation bilaterally. HEART: Shows S1, S2, clear. ABDOMEN: Shows soft, with some significant bruising in the left lower quadrant. Well-healing surgical scar with Steri-Strips still in place over the left lower quadrant and intrathecal pump, which is easily palpable, but nontender. No erythema, no discharge, no dehiscence of the wound or other abnormal findings. Options were discussed with the patient. The patient's old chart was reviewed as her current medication regimen updated. Current review of systems updated today as well. We will interrogate the patient's pump today with the refill date of maximum use of the PTM of 11/07. The patient is currently set at 4.35 mg per day bupivacaine driving medication, which is 25% decrease from the previous settings, but again, the patient is doing well with the current settings and will reprogram this in the future if necessary. Again, with no side effects. We will keep current settings for now. The patient will follow up prior to 11/07 and sooner if necessary if reprogramming is necessary as well. CHITRA EPPERSON MD DR: TRAV/benito JOB#: [id number] / [id number]
== END | disposition home or self-care (01) ==
LOC: PNCL 08:30
PROVIDERS: ATTEND Anesthesiology
DX: M54.12 Radiculopathy, cervical region (principal); M17.0 Bilateral primary osteoarthritis of knee; M51.36 Other intervertebral disc degeneration, lumbar region; M96.1 Postlaminectomy syndrome, not elsewhere classified
CPT/HCPCS: G0463

== ENCOUNTER → 2018-10-30 | Outpatient (CLI) | payer MEDICARE, OTHER ==
[~2018-10-30] MED LIST changes: +BUPIVACAINE MPF 0.25% 10 ML VIAL. ONE; +IOHEXOL 180 MG/ML 10 ML VIAL. ONE; -PANT40TA3 PO; +PANT40TA77 PO; +methylPREDNISolone ACETATE 80 MG/ML VIAL. ONE
--- NOTE | 2018-10-30 21:17 | PAIN ---
DATE OF SERVICE: 10/30/2018 PROGRESS NOTE FOR PAIN CLINIC DIAGNOSES: 1. Cervical radiculopathy with post-cervical laminectomy syndrome. 2. Bilateral knee joint pain with osteoarthritis. 3. Degenerative disk disease of lumbar spine with intrathecal pump therapy and spinal cord stimulation therapy. 4. Right shoulder joint pain with osteoarthritis of the right shoulder joint. HISTORY OF PRESENT ILLNESS: The patient is a 73-year-old female who returns for followup status post intrathecal pump refill and replacement on 08/31/2018 or just prior to that with reprogramming and refill. The patient has been doing well, and does report about a 70% improvement without significant side effects. Her chief complaint today is right shoulder pain. She has had some pain over the past few weeks, increasing when she using her cane, when she is walking and putting weight on her right shoulder. The patient reports the pain is worse with walking, standing, putting pressure on it, also lifting items, holding arms at her side, any weightbearing on the right shoulder as well as motion of the right shoulder, especially with reaching forward with pain at the top of the shoulder itself. The patient reports it is aching and sharp often when moving, on and off in intensity, but it can be constant with weightbearing. The patient reports it is a 10 on a scale of 10 at its worst, is a 6 on average, and a 1 at its least and is a 1 today. The patient reports no new motor or sensory deficits, and no other complaints. No side effects with her medications or intrathecal pump and the spinal cord stimulator has good cover. She is keeping it charged and is doing well also. PHYSICAL EXAMINATION: VITAL SIGNS: The patient's blood pressure 126/83, pulse 72, respirations 18, temperature 98.0 degrees Fahrenheit, weight is 180 pounds. GENERAL: The patient is awake, alert, oriented, appropriate, very pleasant demeanor. HEENT: Head shows normocephalic, atraumatic. Extraocular movements are intact and symmetrical. Oral cavity: Mucous membranes moist and pink. Dentition is intact. NECK: Shows anterior throat supple without palpable lymphadenopathy noted. Swallow reflex is symmetrical. CHEST: Shows normal with inspection. Breath sounds are clear bilaterally. HEART: Shows S1, S2 clear. No murmurs auscultated. ABDOMEN: Soft, nontender, nondistended. BACK: Shows spine grossly in the midline. Normal-appearing thoracic kyphosis and lumbar lordotic curvature is slightly decreased with well-healed surgical scarring noted. Shoulder shows left side nontender with full rotational motion. Right side shows significant tenderness over the acromioclavicular joint, mostly in the anterior and superior aspects of the joint and some on the posterior as well, worse with abduction, also with forward reaching and rear reaching, and pain on the upper aspect of the acromioclavicular joint. The patient has good rotation of motion; however, the glenohumeral joint, both laterally as well as reaching over her head. She is mildly tender on the top of the shoulder with good rotation, both actively and passively. EXTREMITIES: Upper extremity deep tendon reflexes are 2+ in biceps and triceps tendons. Peripheral pulses are 2+ in the range of distribution bilaterally. Options were discussed with the patient. The patient's old chart was reviewed as was current medication regimen updated. Current review of systems is updated today as well. We will proceed with a right acromioclavicular joint injection today with fluoroscopic guidance. Risks were again discussed, including, but not limited to bleeding, infection, possibility of intravascular injection sequelae, spread of local anesthetic and numbness, side effects of steroid medication, exposure to fluoroscopy and poor results regarding pain control. The patient understands and wished to proceed. The patient will return to clinic in approximately 2 weeks for followup and then in our office in about 4 weeks for followup. She was counseled on the return appointment, activity level, and side effects to be aware of. DIAGNOSES: Right shoulder joint pain with primary osteoarthritis of right shoulder joint. PROCEDURE: Right acromioclavicular joint injection using C-arm fluoroscopic guidance under sterile prep and drape using local anesthetic. MEDICATION INJECTED: A total of 80 mg of Depo-Medrol plus total of 2 mL of 0.25% bupivacaine and 0.5 mL of contrast. CONDITION AT DISCHARGE: Stable. The patient tolerated the procedure well, had no complications. CHITRA EPPERSON MD DR: TRAV/benito JOB#: [id number] / [id number]
== END ==
LOC: PNCL 09:25
PROVIDERS: ATTEND Anesthesiology
DX: M19.011 Primary osteoarthritis, right shoulder (principal); M54.12 Radiculopathy, cervical region; M96.1 Postlaminectomy syndrome, not elsewhere classified; M51.36 Other intervertebral disc degeneration, lumbar region
CPT/HCPCS: 20605; 77002; J1040; J3490; Q9965; 20610

== ENCOUNTER → 2018-11-15 | Outpatient (CLI) | payer MEDICARE, OTHER ==
[~2018-11-15] MED LIST changes: -BUPIVACAINE MPF 0.25% 10 ML VIAL. ONE; +BUPIVACAINE MPF 0.75% 30 ML VIAL. ONE; -IOHEXOL 180 MG/ML 10 ML VIAL. ONE; +cloNIDine PF 5,000 MCG/10 ML VIAL EP ONE; +fentaNYL PF VIAL 250 MCG/5 ML VIAL ONE; -methylPREDNISolone ACETATE 80 MG/ML VIAL. ONE
--- NOTE | 2018-11-16 04:11 | PAIN ---
DATE OF SERVICE: 11/15/2018 PROGRESS NOTE FOR PAIN CLINIC DIAGNOSES: 1. Cervical radiculopathy with cervical post-laminectomy syndrome. 2. Bilateral knee joint pain with primary osteoarthritis. 3. Lumbar degenerative disk disease with intrathecal pump and spinal cord stimulator. HISTORY OF PRESENT ILLNESS: The patient is a 73-year- old female who returns for followup status post intrathecal pump replacement and refill. The patient had contacted the office as her pump was beeping at home. We had scheduled her from yesterday to come in today and have this refilled. The patient reports no withdrawal symptoms, is feeling well and reports that her boluses seem to have been helping, but she is not using them at the maximum level allowed. The patient reports no new motor or sensory deficits, no new bowel or bladder incontinence or other complaints. She rates her pain as a 7 on a scale of 10 in the last week at its worst, 7 on average and 1 at its least and is 7 today. The patient reports no new motor or sensory deficits. No new complaints. The patient has recently had bilateral knee replacement and is improving with range of motion, is quite pleased with this, walking with only a cane now where she was using a walker. PHYSICAL EXAMINATION: VITAL SIGNS: The patient's blood pressure is 140/97, pulse 83, respirations 22, temperature is 98.2 degrees Fahrenheit, weight is 182 pounds. GENERAL: The patient is awake, alert, oriented, appropriate, very pleasant demeanor. The patient is accompanied by her . HEENT: Head is normocephalic, atraumatic. Extraocular movements are intact and symmetrical. The patient wears eye glasses. Oral cavity: Mucous membranes moist and pink. NECK: Shows anterior throat supple. CHEST: Shows normal on inspection. ABDOMEN: Soft, nontender, nondistended. Easily palpable intrathecal pump in the left lower quadrant with well-healed surgical scars noted, but nontender. BACK: The patient's back shows spine grossly in the midline. Previous surgical scars in the anterior cervical distribution. The patient has good rotational motion of the cervical spine; however, both laterally as well as extension and flexion without significant increase in pain. Likewise good rotational motion of the lumbar spine, both lateral rotation, left and right, as well as extension and flexion without significant difficulty. Options were discussed with the patient. The patient's old chart was reviewed as her current medication regimen updated. Current review of systems updated today as well. We will proceed with refill of intrathecal pump under sterile prep and drape. Risks were again discussed including, but not limited to bleeding, infection, possibility of extravasation of new medication and possible resuscitative measures if necessary as well as exposure to fluoroscopy and poor results regarding pain control. The patient understands and wished to proceed. The patient will return to the clinic prior to 02/01 for next refill date. The patient was also given refill prescription for tramadol, also Fioricet and hydrocodone with instructions, side effects to be aware of. The patient had appropriate K-TRACS reporting as well as appropriate urinalysis to date and we will refill this for 1 month prescription on each. The patient will follow up as scheduled. DIAGNOSES: 1. Cervical radiculopathy with post-cervical laminectomy syndrome. 2. Degenerative disk disease, lumbar spine and bilateral knee osteoarthritis. PROCEDURE: Intrathecal pump refill and reprogramming. Under sterile prep and drape using a 22-gauge noncutting [employer] kit needle, pump was difficult to access. We then used fluoroscopy for guidance with the pump at an inverted angle and superior to inferior from a cephalad to caudad with a caudad angle more posterior. It was easily visualized with this fluoroscopy and a pump refill port was entered without difficulty, 1 mL approximately was withdrawn from the pump and 40 mL of the new medication containing clonidine, bupivacaine, and fentanyl was then infused without difficulty or resistance. Needle was removed. Sterile bandage was applied. The patient tolerated procedure well, had no complications. CHITRA EPPERSON MD DR: TRAV/nts JOB#: [id number] / [id number]
== END ==
LOC: PNCL 12:42
PROVIDERS: ATTEND Anesthesiology
DX: M17.0 Bilateral primary osteoarthritis of knee (principal); M51.36 Other intervertebral disc degeneration, lumbar region; M50.10 Cervical disc disorder with radiculopathy, unspecified cervical region
CPT/HCPCS: 95991; J0735; J3010; J3490

== ENCOUNTER → 2019-01-14 | Outpatient (CLI) | payer MEDICARE, OTHER ==
[~2019-01-14] MED LIST changes: +BUPIVACAINE MPF 0.25% 10 ML VIAL. ONE; -BUPIVACAINE MPF 0.75% 30 ML VIAL. ONE; +CEPH250C PO; +ESTR30CR VG; +IOHEXOL 180 MG/ML 10 ML VIAL. ONE; +LACT1CAP2 PO; -MELA3TAB2 PO; +MELA3TAB56 PO; +METH1TAB PO; +MIRA25TA PO; -cloNIDine PF 5,000 MCG/10 ML VIAL EP ONE; -fentaNYL PF VIAL 250 MCG/5 ML VIAL ONE; +methylPREDNISolone ACETATE 80 MG/ML VIAL. ONE
--- NOTE | 2019-01-14 23:36 | PAIN ---
DATE OF SERVICE: 01/14/2019 PROGRESS NOTE FOR PAIN CLINIC DIAGNOSES: 1. Cervical radiculopathy with cervical post-laminectomy syndrome. 2. Bilateral knee joint pain with osteoarthritis. 3. Lumbar degenerative disk disease. Intrathecal pump and spinal cord stimulation therapy. 4. Right shoulder joint pain with osteoarthritis. HISTORY OF PRESENT ILLNESS: The patient is a 73-year-old female who returns for followup status post both right acromioclavicular joint injections as well as medication management and intrathecal pump management. The patient is doing very well. Reports significant decrease in pain overall, but her chief complaint is right shoulder pain today. She had, had an acromioclavicular joint injection on 10/30 and did very well with this with about 80% improvement. The patient reports the pain is returning now, worse with lifting or holding items at her side on her right arm, reaching over her head or reaching forward, any repetitive motions or weightbearing. The patient reports it is 7 on a scale of 10 at its worst over the past week, 7 on average and a 2 at its least and is a 7 today. The patient reports aching, sharp, dull, length of the arm is aching, the tip of the shoulder is sharp and dull with the length of the arm as well. The patient reports no new motor or sensory deficits. Reports no side effects from the intrathecal pump. The spinal cord stimulator is still functioning well with good paresthesia coverage as well. The patient has been doing household activities with greater ease and comfort after her last shoulder injection as well. PHYSICAL EXAMINATION: VITAL SIGNS: The patient's blood pressure 115/73, pulse 56, respirations 16, temperature 98.0 degrees Fahrenheit, height is 5 feet 2 inches, weight is 179 pounds. GENERAL: The patient is awake, alert, oriented, appropriate, very pleasant demeanor. HEENT: Head shows normocephalic, atraumatic. Extraocular movements are intact and symmetrical. Oral cavity: Mucous membranes moist and pink. Dentition is intact. NECK: Shows anterior throat is supple without palpable lymphadenopathy noted. Swallow reflex symmetrical. CHEST: Shows normal on inspection. Breath sounds clear to auscultation bilaterally. HEART: Shows S1, S2 clear. No murmurs auscultated. ABDOMEN: Soft, nontender, nondistended. No palpable organomegaly is noted. No rebound or guarding demonstrated. BACK: Shows spine grossly in the midline. Slightly increased thoracic kyphotic curvature and slightly flattened lumbar lordotic curvature. ABDOMEN: Shows well-healed surgical scarring and easily palpable intrathecal pump, which is nontender. EXTREMITIES: The patient's upper extremities show deep tendon reflexes 2+ in the biceps and triceps tendons. Edge Setter strength 4 on a scale of 5, but equal and symmetrical. The patient's right acromioclavicular joint shows significant tenderness with palpation over the anterior and superior aspect of the joint as well as the posterior aspect of the joint, very tender, very sharp pain with deep palpation without radiation. The patient shows good rotational motion of the shoulder, but with significant pain with abduction of the shoulder past about 40 degrees. Peripheral pulses are 1+ posterior tibia. No peripheral edema is noted. Options were discussed with the patient. The patient's old chart was reviewed as her current medication regimen updated. Current review of systems updated today as well. We will proceed with right acromioclavicular joint injection today with fluoroscopic guidance. Risks were again discussed including, but not limited to bleeding, infection, possibility of intravascular injection sequelae, spread of local anesthetic and numbness, side effects of steroid medication, exposure to fluoroscopy and poor results regarding pain control. The patient understands and wished to proceed. The patient will return to clinic in approximately 2 weeks for followup. She was counseled on return appointment, activity level and side effects to be aware of. DIAGNOSIS: Right shoulder joint pain with osteoarthritis, right acromioclavicular joint. PROCEDURE: Right acromioclavicular joint injection under C-arm fluoroscopic guidance under sterile prep and drape using local anesthetic. MEDICATION INJECTED: A total of 80 mg Depo-Medrol plus a total 2 mL of 0.25% bupivacaine and 1 mL of contrast. CONDITION AT DISCHARGE: Stable. The patient tolerated the procedure well, had no complications. CHITRA EPPERSON MD DR: TRAV/benito JOB#: [id number] / [id number]
== END ==
LOC: PNCL 11:32
PROVIDERS: ATTEND Anesthesiology
DX: M19.011 Primary osteoarthritis, right shoulder (principal); M17.0 Bilateral primary osteoarthritis of knee; M51.36 Other intervertebral disc degeneration, lumbar region; M50.10 Cervical disc disorder with radiculopathy, unspecified cervical region
CPT/HCPCS: 20605; 77002; J1040; J3490; Q9965

== ENCOUNTER → 2019-01-31 | Outpatient (CLI) | payer MEDICARE, OTHER ==
[~2019-01-31] MED LIST changes: -BUPIVACAINE MPF 0.25% 10 ML VIAL. ONE; +BUPIVACAINE MPF 0.75% 30 ML VIAL. ONE; -IOHEXOL 180 MG/ML 10 ML VIAL. ONE; +OMEP40CA45 PO; -OMEP40CA5 PO; +OXYB5TAB10 PO; -OXYB5TAB7 PO; +cloNIDine PF 5,000 MCG/10 ML VIAL EP ONE; +fentaNYL PF VIAL 250 MCG/5 ML VIAL ONE; -methylPREDNISolone ACETATE 80 MG/ML VIAL. ONE
--- NOTE | 2019-01-31 19:44 | PAIN ---
DATE OF SERVICE: 01/31/2019 PROGRESS NOTE FOR PAIN CLINIC DIAGNOSES: 1. Cervical radiculopathy with cervical post-laminectomy syndrome. 2. Lumbar degenerative disk disease with lumbar stenosis. 3. Bilateral knee joint pain with osteoarthritis. 4. Right shoulder joint pain with osteoarthritis. HISTORY OF PRESENT ILLNESS: The patient is a 73-year-old female who returns for followup status post intrathecal pump therapy as well as spinal cord stimulator therapy and oral medical management. The patient reports she is doing fairly well. She is here for pump refill today on the intrathecal pump and she is using her PTM less frequently. She reports she had less pain over the past month or so. The patient reports still significant pain in the mid back, low back and neck, base of the neck and shoulders as well as into the lower extremities. The patient reports she is fairly well controlled, however, with the combination of intrathecal pump and spinal cord stimulator and oral medications. The patient reports no side effects with the medications or the pump. The patient reports no new findings, no new bowel or bladder incontinence or other concerns at this time. The patient rates her pain as a 6 on a scale of 10 at its worst, the past week 0 with the pump on average and 0 at its least on average and is 0 today with the pump with using her PTM. The patient reports the pain is aching, dull made at the base of neck and shoulder, some in the low back as well, can be constant with activity, which she has been doing fairly well in the past month and has no new motor or sensory deficits. The patient reports it awakens her from sleep occasionally, but not usually more frequently than every 8 hours and she is sleeping fairly well. PHYSICAL EXAMINATION: VITAL SIGNS: The patient's blood pressure 126/74, pulse 76, respirations are 18, temperature is 98.2 degrees Fahrenheit, height is 5 feet 2 inches, weight is 179 pounds. GENERAL: The patient is awake, alert, oriented, appropriate, very pleasant demeanor. The patient is accompanied by her . HEENT: Shows normocephalic, atraumatic. Extraocular movements are intact and symmetrical. Oral cavity: Mucous membranes moist and pink. Dentition is intact. NECK: Shows anterior throat supple without palpable lymphadenopathy noted. Swallow reflex symmetrical. CHEST: Shows normal on inspection. Breath sounds clear to auscultation bilaterally. HEART: Shows S1, S2 clear. No murmurs auscultated. ABDOMEN: Obese, soft, nontender, nondistended. Well-healed surgical scars noted in the left lower quadrant. Easily palpable intrathecal pump is noted as well, which is nontender, but mobile. BACK: The patient's upper extremities show deep tendon reflexes at 2+ in the biceps, triceps tendons. Cuff Runner strength is approximately 4 on a scale of 5, but equal and symmetrical with diecast machine operator strength, bicep and tricep flexion. The patient's right shoulder shows some only mild tenderness with palpation over the right acromioclavicular joint. She did very well after recent acromioclavicular joint injection on the right. EXTREMITIES: The patient's lower extremities show deep tendon reflexes 1+ in the patellar and tendo calcaneus tendons. Motor exam is 4 on a scale of 5, but symmetrical with dorsiflexion, extension, quadriceps and hamstring flexion. Peripheral pulses are 1+. No peripheral edema is noted bilaterally. Options were discussed with the patient. The patient's old chart was reviewed as her current medication regimen updated. Current review of systems updated today as well. We will proceed with refill of the intrathecal pump today and reprogramming as well as PTM programming. The patient will follow up in approximately 1 month for medication refill as needed and new refill date 04/19/2019 for intrathecal pump at current PTM usage. DIAGNOSES: Cervical radiculopathy with post-cervical laminectomy syndrome and lumbar degenerative disk disease with bilateral knee joint pain, osteoarthritis and right shoulder joint pain, osteoarthritis. PROCEDURE: Intrathecal pump refill and reprogramming with PTM reprogramming as well under sterile prep and drape using local anesthetic. MEDICATIONS: A 4 mL of the old medication was removed using a 22-gauge [employer] noncutting intrathecal access needle for the pump total of 40 mL of new medication was placed containing bupivacaine, fentanyl and clonidine. Needle was withdrawn. Sterile bandage was applied. The patient tolerated procedure well, had no complications. Pump was then reprogrammed for volume as well as PTM settings. CONDITION AT DISCHARGE: Stable. The patient tolerated the procedure well, had no complications. CHITRA EPPERSON MD DR: TRAV/benito JOB#: [id number] / [id number]
== END ==
LOC: PNCL 09:07
PROVIDERS: ATTEND Anesthesiology
DX: M54.12 Radiculopathy, cervical region (principal); M96.1 Postlaminectomy syndrome, not elsewhere classified; M51.36 Other intervertebral disc degeneration, lumbar region; M19.011 Primary osteoarthritis, right shoulder; M17.0 Bilateral primary osteoarthritis of knee
CPT/HCPCS: 95991; J0735; J3010; J3490

== ENCOUNTER → 2019-04-22 | Outpatient (CLI) | payer MEDICARE, OTHER ==
[~2019-04-22] MED LIST changes: +LIDOCAINE/PRILOCAINE TOPICAL CREAM 5GM TUBE. TP ONE; +SIMV20TA18 PO; -SIMV20TA3 PO
--- NOTE | 2019-04-23 01:20 | PAIN ---
DATE OF SERVICE: 04/22/2019 PROGRESS NOTE FOR PAIN CLINIC DIAGNOSES: 1. Cervical radiculopathy with cervical post-laminectomy syndrome. 2. Bilateral knee joint pain with osteoarthritis. 3. Lumbar degenerative disk disease with intrathecal pump and spinal cord stimulator therapy. HISTORY OF PRESENT ILLNESS: The patient is a 73-year-old female who returns for followup status post intrathecal pump therapy as well as medication management. The patient reports she is doing well with both tramadol and hydrocodone as well as intrathecal pump with bupivacaine, clonidine, and fentanyl. The patient reports her pain is fairly well controlled, about 75% improvement overall with the combination medication management as well as intrathecal pump. She has been on very stable regimen now for several years. The patient reports her pain can be as high as a 6 on a scale of 10 at its worst over the past week, 3 on average, 2 at its least, and is a 2 today. The patient reports it is a burning and aching in the base of neck and shoulders, upper back, mid back, low back, to some extent as well, mostly in the shoulders and upper extremities, also some knee joint pain with walking and standing, but the patient reports she has been doing fairly well. Recently, they have returned from a trip to [place], [place], where she had a lot of walking done. It did, by her report, fairly well as she did use a seated scooter while she was there and a wheelchair at times. The patient reports no new motor or sensory deficits, no new bowel or bladder incontinence, no side effects with medications. PHYSICAL EXAMINATION: VITAL SIGNS: The patient's blood pressure is 123/76, pulse is 90, respirations are 18, and temperature is 98.2 degrees Fahrenheit. GENERAL: The patient is awake, alert, oriented, appropriate, very pleasant demeanor. HEENT: Head shows normocephalic, atraumatic. Extraocular movements are intact and symmetrical. Oral cavity shows mucous membranes moist and pink. Dentition is intact. NECK: Shows anterior throat is supple without palpable lymphadenopathy noted. Swallow reflex is symmetrical. CHEST: Shows normal on inspection. Breath sounds are clear bilaterally. HEART: Shows S1, S2 clear. Obese, soft, nontender, and nondistended. Easily palpable intrathecal pump is noted in the left lower quadrant and with well-healed surgical scar present as well. BACK: The patient's back shows spine grossly in midline, slight exaggeration of thoracic kyphosis. There is some minor flattening of cervical lordotic curvature and lumbar lordotic curvatures, moderate tenderness with palpation of the posterior cervical paraspinous musculature as well as the superior medial trapezius bilaterally, but only diffusely without radiation. The patient has good rotational motion of cervical spine, both laterally as well as extension and flexion without significant increase in pain. The patient's lumbar spine shows some moderate tenderness with palpation, but symmetrical on inspection with paraspinous musculature throughout the upper, middle, and lower distribution of paraspinous muscles. No trigger points, no radiation of pain. The patient does show good rotational motion of lumbar spine as well with extension, flexion, right and left lateral rotation without significant increase in pain. EXTREMITIES: The patient's extremities show upper extremity deep tendon reflexes 2+ in biceps, triceps tendons. Racquet Maker strength at approximately 4 on a scale of 5, but symmetrical. Peripheral pulses are 2+ radial distribution. Lower extremities show deep tendon reflexes are 1+ in the patellar and tendo calcaneus tendons. Motor exam is approximately 4 on a scale of 5 as well, but symmetrical right and left without deficits. Peripheral pulses are 1+ posterior tibia. No peripheral edema is noted in the lower extremities or upper extremities bilaterally. Options were discussed with the patient. The patient's old chart was reviewed as her current medication regimen updated. Current review of systems updated today as well. We will proceed with intrathecal pump refill and reprogramming as well as medication management. refill of both hydrocodone and tramadol. The patient has had appropriate K-TRACS reporting as well as appropriate urinalysis to-date. We will refill the medications for 2-month period. The pump will be refilled today with reprogramming as well with volume as well as alarm volume status. The patient has had appropriate K-TRACS reporting as well as appropriate urinalysis. She will have urinalysis done today as well as will have routine screening. Also, we have renewed the patient's narcotic contract. The patient was given a copy of this as well. The patient will follow up in approximately 2 months or sooner as necessary. DIAGNOSES: 1. Cervical radiculopathy with cervical post-laminectomy syndrome. 2. Bilateral knee joint pain with primary osteoarthritis. 3. Lumbar degenerative disk disease. PROCEDURE: Intrathecal pump refill and reprogramming under sterile prep and drape using local anesthetic topical, using a 22-gauge noncutting [employer] kit needle. Pump was entered without difficulty. 2 mL of the old medication was withdrawn and discarded and 40 mL of new medication containing fentanyl, bupivacaine, and clonidine was then replaced. Needle was withdrawn. Sterile bandage was applied. The patient tolerated the procedure well, had no complications. CONDITION AT DISCHARGE: Stable. CHITRA EPPERSON MD DR: TRAV/nts JOB#: [id number] / [id number]
== END ==
LOC: PNCL 13:26
PROVIDERS: ATTEND Anesthesiology
DX: M54.12 Radiculopathy, cervical region (principal); M96.1 Postlaminectomy syndrome, not elsewhere classified; M51.36 Other intervertebral disc degeneration, lumbar region; M17.0 Bilateral primary osteoarthritis of knee
CPT/HCPCS: 95991; J0735; J3010; J3490

== ENCOUNTER → 2019-05-09 | Outpatient (CLI) | payer BC, MEDICARE ==
[~2019-05-09] MED LIST changes: +BUPIVACAINE MPF 0.25% 10 ML VIAL. ONE; -BUPIVACAINE MPF 0.75% 30 ML VIAL. ONE; +IOHEXOL 180 MG/ML 10 ML VIAL. ONE; -LIDOCAINE/PRILOCAINE TOPICAL CREAM 5GM TUBE. TP ONE; -cloNIDine PF 5,000 MCG/10 ML VIAL EP ONE; -fentaNYL PF VIAL 250 MCG/5 ML VIAL ONE; +methylPREDNISolone ACETATE 80 MG/ML VIAL. ONE
--- NOTE | 2019-05-10 00:11 | PAIN ---
DATE OF SERVICE: 05/09/2019 PROGRESS NOTE FOR PAIN CLINIC DIAGNOSES: 1. Cervical radiculopathy with cervical post-laminectomy syndrome. 2. Bilateral knee joint pain with osteoarthritis. 3. Lumbar degenerative disk disease with intrathecal pump and spinal cord stimulator therapy. 4. Right shoulder joint pain with osteoarthritis. HISTORY OF PRESENT ILLNESS: The patient is a 73-year-old female who returns for followup status post intrathecal pump management as well as spinal cord stimulator management and right shoulder joint injection in the acromioclavicular joint. The patient reports she is doing very well, but her shoulder has been causing significant pain on the right side. The patient reports no loss of motor function, but significant pain with reaching for items with her right arm weightbearing, especially holding her arm to her side and holding her purse in her hand with some traction on her arm is becoming much more painful. The patient has had this previously and has done very well with acromioclavicular joint injections. The patient reports the pain is a 10 on a scale of 10 at its worst over the past week, 6 on average, and a 3 at its least and is a 6 today. The patient reports it is aching, sharp, and shooting, sometimes severe with movement and becomes constant. The patient reports no new motor or sensory deficits. No new changes. PHYSICAL EXAMINATION: VITAL SIGNS: The patient's blood pressure is 117/72, pulse 71, respirations 16, and temperature 97.7 degrees Fahrenheit. GENERAL: The patient is awake, alert, oriented, and appropriate. Very pleasant demeanor. HEENT: Head is normocephalic and atraumatic. The patient is wearing eyeglasses. Extraocular movements are intact and symmetrical. Oral cavity shows mucous membranes are moist and pink. NECK: Anterior throat supple. CHEST: Normal on inspection. Breath sounds are clear bilaterally. ABDOMEN: Soft, nontender, and nondistended. Easily palpable intrathecal pump is again noted in the left lower quadrant with a well-healed surgical scarring and is mobile but nontender. BACK: The patient's back shows spine grossly in the midline. Exaggeration of thoracic kyphosis and some flattening of lumbar lordotic curvature. Again, well-healed surgical scar is noted. EXTREMITIES: The patient's upper extremities show deep tendon reflexes at 2+ in the biceps and triceps tendons. Motor exam is strong with powder worker strength about 4 on a scale of 5, but equal and symmetrical, right and left. Biceps and triceps flexion 4/5 and equal bilaterally as well. The patient has significant tenderness with palpation over the right acromioclavicular joint, especially on the anterior and superior aspect of the joint, mildly on the posterior aspect, but very tender on both the anterior aspect and the superior aspect. This is worse with abduction of the shoulder to 90 degrees with resistance on the right only. Left side is nontender. Peripheral pulses are 2+ radial. No peripheral edema is noted. Options were discussed with the patient. The patient's old chart was reviewed. Her current medication regimen is updated. Current review of systems is updated today as well. We will proceed with a right acromioclavicular joint injection with fluoroscopic guidance. Risks were again discussed including but not limited to bleeding, infection, possibility of intravascular injection sequelae, spread of local anesthetic and numbness, side effects of steroid medication, exposure to fluoroscopy, and poor results regarding pain control. The patient understands and wished to proceed. The patient will return to clinic in approximately 2 weeks for followup as scheduled and was counseled as to return appointment, activity level, and side effects to be aware of. DIAGNOSIS: Right shoulder acromioclavicular joint pain with primary osteoarthritis. PROCEDURE: Right acromioclavicular joint injection using C-arm fluoroscopic guidance under sterile prep and drape using local anesthetic. MEDICATION INJECTED: A total of 3 mL of 0.25% bupivacaine and 80 mg of Depo-Medrol, 1.5 mL of contrast. CONDITION AT DISCHARGE: Stable. The patient tolerated the procedure well and had no complications. CHITRA EPPERSON MD DR: TRAV/benito JOB#: [id number] / [id number]
== END ==
LOC: PNCL 13:55
PROVIDERS: ATTEND Anesthesiology
DX: M19.011 Primary osteoarthritis, right shoulder (principal); M54.12 Radiculopathy, cervical region; M96.1 Postlaminectomy syndrome, not elsewhere classified; M17.0 Bilateral primary osteoarthritis of knee; M51.36 Other intervertebral disc degeneration, lumbar region
CPT/HCPCS: 20605; 77002; J1040; J3490; Q9965

== ENCOUNTER → 2019-06-04 | Outpatient (CLI) | payer MEDICARE ==
[~2019-06-04] MED LIST changes: -BUPIVACAINE MPF 0.25% 10 ML VIAL. ONE; +CONTRAST GIVEN. MC PRN; -IOHEXOL 180 MG/ML 10 ML VIAL. ONE; +IOHEXOL 240 MG/ML 50ML VIAL. PO ONE; +IOHEXOL 300 MG/ML 100ML VIAL. IV ONE; -methylPREDNISolone ACETATE 80 MG/ML VIAL. ONE
--- NOTE | 2019-06-04 16:19 | KCIC ---
CT study of the abdomen and pelvis with contrast Clinical indications: Lower abdominal pain for one year. History of diverticulitis. TECHNIQUE: After IV infusion of 100 cc of Omnipaque 300, helical CT scanning of the abdomen and pelvis was performed. GI contrast was administered per mouth. PQRS compliance Statement One or more of the following individualized dose reduction techniques were utilized for this study: 1. Automated exposure control 2. Adjustment of the mA and/or kV according to patient size 3. Use of iterative reconstruction technique COMPARISON: April 09, 2018. FINDINGS: The gallbladder is surgically absent. There is dilatation of the intrahepatic and extrahepatic biliary tree down into the head of the pancreas to the level of the ampulla. There is dilatation of the main pancreatic duct as well down to the ampulla. This was seen previously and may be due to the reservoir effect after cholecystectomy. Common bile duct measures 13 mm within the head of the pancreas. It previously measured 12 mm. The common hepatic duct measures 22 mm. It previously measured 17. Therefore, there has been a mild increase in size. Pancreas enhances homogeneously without a pancreatic mass. The spleen is not enlarged. No adrenal mass is evident. Nonobstructing punctate stone of the right kidney is again evident. Mild left-sided hydronephrosis is seen down to the UPJ without a stone. No hydroureter is seen. No ureteral stone is evident. Urinary bladder wall is smooth. No focal aneurysmal dilatation of the abdominal aorta is seen. No enlarged abdominal pelvic lymphadenopathy is evident. Sigmoid diverticulosis is seen without diverticulitis. Terminal ileum is unremarkable. The appendix is normal. No obstructive bowel pattern is seen. Small hiatal hernia is seen. There is an anterior abdominal wall hernia within the upper abdomen containing only fat and no inflammatory change is seen here. This is unchanged. No bowel wall thickening is seen. No mesenteric edema or free fluid or free air is seen. Surgical clips are seen within the left side of the anatomic pelvis. The uterus is surgically absent. No lung base consolidation is evident. No lytic process is seen. IMPRESSION: Mild increase in size of biliary tree. This may be secondary to the reservoir effect after cholecystectomy but correlation with liver function tests is recommended to exclude a distal common bile duct obstruction. New finding of mild left-sided hydronephrosis down to the UPJ without a stone. Small nonobstructing stone of the right kidney is noted. Sigmoid diverticulosis without diverticulitis. Electronically signed by: Roman Licona MD (06/04/2019 4:16 PM) [facility] – [place]
== END | disposition home or self-care (01) ==
LOC: KCIC CT 08:15
PROVIDERS: ATTEND Internal Medicine Gastroenterology
DX: K57.30 Diverticulosis of large intestine without perforation or abscess without bleeding (principal); K44.9 Diaphragmatic hernia without obstruction or gangrene; N20.0 Calculus of kidney; N13.30 Unspecified hydronephrosis; Z90.49 Acquired absence of other specified parts of digestive tract
CPT/HCPCS: 74177; Q9966; Q9967

== ENCOUNTER → 2019-07-11 | Outpatient (CLI) | payer MEDICARE ==
[~2019-07-11] MED LIST changes: +BUPIVACAINE MPF 0.75% 30 ML VIAL. ONE; -CONTRAST GIVEN. MC PRN; -IOHEXOL 240 MG/ML 50ML VIAL. PO ONE; -IOHEXOL 300 MG/ML 100ML VIAL. IV ONE; +LIDOCAINE/PRILOCAINE TOPICAL CREAM 5GM TUBE. TP ONE; +MELA3TAB4 PO; -MELA3TAB56 PO; -METH1TAB PO; +METH1TAB54 PO; +cloNIDine PF 5,000 MCG/10 ML VIAL EP ONE; +fentaNYL PF VIAL 250 MCG/5 ML VIAL ONE
--- NOTE | 2019-07-11 14:28 | PAIN ---
DATE OF SERVICE: PROGRESS NOTE FOR PAIN CLINIC DIAGNOSES: 1. Cervical radiculopathy with post-cervical laminectomy syndrome. 2. Bilateral knee joint pain with osteoarthritis. 3. Lumbar degenerative disk disease with intrathecal pump therapy and spinal cord stimulator. 4. Right shoulder acromioclavicular joint pain with osteoarthritis. HISTORY OF PRESENT ILLNESS: The patient is a 73-year-old female who returns for followup status post intrathecal pump therapy as well as knee injections and the spinal cord stimulator. The patient reports she is doing fairly well with a fairly standard or stable i.e. regimen of medication as well as oral medications and intrathecal pump as well as stimulator with good balance and good functionality. The patient reports about 50% overall with the decrease in her pain with all the modalities combined. The patient is here for pump refill today. The patient reports the pain is a 2 on a scale of 10 at its worst, 2 on average over the past week and 0 at its least and is a 2 today. The patient reports she has not been using the PTM as often as her pain level has been a little bit lower over the past month or so. The patient reports no new motor or sensory deficits. Reports she is sleeping well at night. We did have a right acromioclavicular joint injection on her last visit and she did well with this with about 50% improvement overall with that as well. Sanjana patient reports no new changes, no side effects with medications, oral medications as well without side effects and good stable regimen also. The patient reports the pain is made in the base of the neck at this time, but radiating, aching at times, but otherwise doing fairly well. PHYSICAL EXAMINATION: VITAL SIGNS: The patient's blood pressure 120/82, pulse 73, respirations 18, temperature 97.3 degrees Fahrenheit, height is 5 feet 2 inches, weight is 192 pounds. GENERAL: The patient is awake, alert, oriented, appropriate, very pleasant demeanor. HEENT: Head is normocephalic, atraumatic. Extraocular movements are intact and symmetrical. Oral cavity: Mucous membranes moist and pink. The patient wears eyeglasses. NECK: Shows anterior throat supple without palpable lymphadenopathy noted. Swallow reflex symmetrical. CHEST: Shows normal on inspection. Breath sounds clear to auscultation bilaterally. HEART: Shows S1, S2 clear. No murmurs auscultated. ABDOMEN: Soft, nontender, nondistended. No palpable organomegaly is noted. No rebound or guarding demonstrated. BACK: Shows spine grossly in the midline. Normal appearing thoracic kyphosis and some slight flattening of lumbar lordotic curvature. Lumbar paraspinous muscle shows symmetrical on inspection, on palpation some moderate tenderness diffusely bilaterally, but only diffusely without significant radiation. EXTREMITIES: The patient's lower extremities show deep tendon reflexes 1+ in the patellar and tendo calcaneus tendons. Motor exam is strong with approximately 4 on a scale of 5, but equal and symmetrical dorsiflexion, extension, quadriceps and hamstring flexion. Upper extremities show deep tendon reflexes 2+ in the biceps and triceps tendons. Motor exam 4/5 with ice guard tester strength, bicep and tricep flexion equal and symmetrical as well. Options were discussed with the patient. The patient's old chart was reviewed as her current medication regimen updated. Current review of systems updated today as well. We will proceed with a intrathecal pump refill and reprogramming today as well as PTM reprogramming. Risks were discussed including but not limited to bleeding, infection, possibility of extravasation of the intrathecal medication and possible resuscitative measures as necessary as well as poor results regarding pain control. The patient understands and wished to proceed. The patient will return to the clinic in approximately prior to or before 09/29/2019 for pump refill. Also, will have the patient return for medication management refill prior to that as scheduled. The patient is counseled as to activity level as well as side effects to be aware of. CHITRA EPPERSON MD DR: TRAV/benito JOB#: [id number] / [id number]
== END ==
LOC: PNCL 10:54
PROVIDERS: ATTEND Anesthesiology
DX: M51.16 Intervertebral disc disorders with radiculopathy, lumbar region (principal); M17.0 Bilateral primary osteoarthritis of knee; M19.011 Primary osteoarthritis, right shoulder; M96.1 Postlaminectomy syndrome, not elsewhere classified
CPT/HCPCS: 95991; J0735; J3010; J3490

== ENCOUNTER → 2019-09-25 | Outpatient (CLI) | payer MEDICARE ==
[~2019-09-25] MED LIST changes: +BUPIVACAINE MPF 0.25% 10 ML VIAL. ONE; -BUPIVACAINE MPF 0.75% 30 ML VIAL. ONE; +IOHEXOL 180 MG/ML 10 ML VIAL. ONE; -LIDOCAINE/PRILOCAINE TOPICAL CREAM 5GM TUBE. TP ONE; -cloNIDine PF 5,000 MCG/10 ML VIAL EP ONE; -fentaNYL PF VIAL 250 MCG/5 ML VIAL ONE; +methylPREDNISolone ACETATE 80 MG/ML VIAL. ONE
--- NOTE | 2019-09-25 22:05 | PAIN ---
DATE OF SERVICE: 09/25/2019 PROGRESS NOTE FOR PAIN CLINIC DIAGNOSES: 1. Right shoulder joint pain with osteoarthritis, right acromioclavicular joint. 2. Cervical radiculopathy with post-cervical laminectomy syndrome. 3. Bilateral knee joint pain with osteoarthritis. 4. Lumbar degenerative disk disease with intrathecal pump and spinal cord stimulator therapy. HISTORY OF PRESENT ILLNESS: The patient is a 74-year-old female who returns for followup status post intrathecal pump therapy as well as right shoulder acromioclavicular joint injection on 05/09/2019. The patient did very well with about 50% improvement overall, about 80% improvement initially and still about 50% better, but still pain is returning with increased activity and the use of the right shoulder and arm. The patient reports weightbearing, lifting items, reaching out to the side or up above her head with her right hand, becoming much more tender, especially carrying items at her right side. The patient reports it is aching, sharp when reaching and shooting when reaching, radiating into the anterior bicep region to the elbow. The patient reports it is on and off in intensity, does not generally awaken her from sleep at night. The patient reports the pain is an 8 on a scale of 10 at its worst in the past week, 4-5 on an average and 4/5 at its least and is a 4 today. The patient reports no new motor or sensory deficits, no new changes. PHYSICAL EXAMINATION: VITAL SIGNS: The patient's blood pressure 136/89, pulse 77, respirations 18, temperature 98.4 degrees Fahrenheit, weight is 201 pounds. GENERAL: The patient is awake, alert, oriented, appropriate, very pleasant demeanor. The patient is accompanied by her . HEENT: Shows normocephalic, atraumatic. Extraocular movements are intact and symmetrical. Oral cavity: Mucous membranes moist and pink. Dentition is intact. NECK: Shows anterior throat supple without palpable lymphadenopathy noted. Swallow reflex symmetrical. CHEST: Shows normal on inspection. Breath sounds are clear bilaterally. No rales, rhonchi or wheezes auscultated. HEART: Shows S1, S2 clear. No murmurs auscultated. ABDOMEN: Obese, but soft, nontender, nondistended. Easily palpable intrathecal pump is noted without tenderness and a well-healed surgical scarring. BACK: The patient's right shoulder shows significant tenderness over the right acromioclavicular joint with palpation compared to the left, which is only very mildly tender. EXTREMITIES: Upper extremities show deep tendon reflexes 2+ in the biceps and triceps tendons. Motor exam is strong with chiller technician strength rated at 4/5 on the right and 5/5 on the left with bicep and tricep flexion. Peripheral pulses are 2+ radial. No peripheral edema is noted in the upper extremities bilaterally. Options were discussed with the patient. The patient's old chart was reviewed. Her current medication regimen updated. Current review of systems updated today as well. We will proceed with a right acromioclavicular joint injection with fluoroscopic guidance today. Risks were discussed including but not limited to bleeding, infection, possibility of intravascular injection sequelae, spread of local anesthetic and numbness, exposure to fluoroscopy as well as poor results regarding pain control. The patient understands and wished to proceed. The patient will return to clinic in approximately 2 weeks for followup, was counseled as on return appointment, activity level an side effects to be aware of. DIAGNOSIS: Right shoulder joint pain with primary osteoarthritis, right acromioclavicular joint. PROCEDURE: Right acromioclavicular shoulder joint injection using C-arm fluoroscopic guidance under sterile prep and drape using local anesthetic. MEDICATION INJECTED: A total of 80 mg Depo-Medrol plus 2 mL of 0.25% bupivacaine and 1 mL of contrast. CONDITION AT DISCHARGE: Stable. The patient tolerated procedure well, had no complications. CHITRA EPPERSON MD DR: TRAV/benito JOB#: [id number] / [id number]
== END ==
LOC: PNCL 13:32
PROVIDERS: ATTEND Anesthesiology
DX: M19.011 Primary osteoarthritis, right shoulder (principal); J44.9 Chronic obstructive pulmonary disease, unspecified; E78.00 Pure hypercholesterolemia, unspecified; K21.9 Gastro-esophageal reflux disease without esophagitis; G47.33 Obstructive sleep apnea (adult) (pediatric); Z86.73 Personal history of transient ischemic attack (TIA), and cerebral infarction without residual deficits; M19.90 Unspecified osteoarthritis, unspecified site; F32.9 Major depressive disorder, single episode, unspecified; F41.9 Anxiety disorder, unspecified; E03.9 Hypothyroidism, unspecified; Z87.442 Personal history of urinary calculi; Z87.440 Personal history of urinary (tract) infections; Z90.710 Acquired absence of both cervix and uterus; Z90.49 Acquired absence of other specified parts of digestive tract; Z90.721 Acquired absence of ovaries, unilateral; Z96.651 Presence of right artificial knee joint; Z96.698 Presence of other orthopedic joint implants; Z98.890 Other specified postprocedural states
CPT/HCPCS: 20605; J1040; J3490; Q9965

== ENCOUNTER → 2019-09-27 | Outpatient (CLI) | payer MEDICARE ==
[~2019-09-27] MED LIST changes: -BUPIVACAINE MPF 0.25% 10 ML VIAL. ONE; +BUPIVACAINE MPF 0.75% 30 ML VIAL. ONE; -IOHEXOL 180 MG/ML 10 ML VIAL. ONE; +cloNIDine PF 5,000 MCG/10 ML VIAL EP ONE; +fentaNYL PF VIAL 250 MCG/5 ML VIAL ONE; -methylPREDNISolone ACETATE 80 MG/ML VIAL. ONE
--- NOTE | 2019-09-27 12:26 | PAIN ---
DATE OF SERVICE: 09/27/2019 PROGRESS NOTE FOR PAIN CLINIC DIAGNOSES: 1. Cervical radiculopathy with cervical post-laminectomy syndrome. 2. Lumbar degenerative disk disease with intrathecal pump and spinal cord stimulator therapy. 3. Bilateral knee joint pain with osteoarthritis. 4. Right shoulder joint pain with osteoarthritis. HISTORY OF PRESENT ILLNESS: The patient is a 74-year-old female who returns for followup status post right acromioclavicular joint injection on 09/25/2019. The patient reports she is doing much better, about 75% improvement with the shoulder. She is here for pump refill today with her intrathecal pump. The patient reports still doing well. No side effects with the medication. Also, with spinal cord stimulator which is getting good coverage of the low back and legs, which does help to by about 20-30% improvement overall. The patient is taking hydrocodone on an as needed basis, which does help by 50% or more as well without specific side effects. The patient reports no side effects with medication. Her PTM is functioning well and she can tell a difference when she uses it. The patient reports the pain as a 4 on a scale of 10 at its worst over the past week, 4 on average, 1 at its least and is a 1 today. The patient reports no new motor or sensory deficits, no new concerns again right shoulder doing much better after injection a few days ago. PHYSICAL EXAMINATION: VITAL SIGNS: The patient's blood pressure 135/91, pulse 95, respirations are 20, temperature 97.9 degrees Fahrenheit, weight is 196 pounds. GENERAL: The patient is awake, alert, oriented, appropriate, very pleasant demeanor. HEENT: Shows normocephalic, atraumatic. Extraocular movements are intact and symmetrical. Oral cavity: Mucous membranes moist and pink. Dentition is intact. NECK: Shows anterior throat supple without palpable lymphadenopathy noted. Swallow reflex symmetrical. CHEST: Shows normal on inspection. Breath sounds are clear bilaterally. HEART: Shows S1, S2 clear. No murmurs auscultated. ABDOMEN: Soft, nontender, nondistended. No palpable organomegaly is noted. No rebound or guarding demonstrated. BACK: Shows spine grossly in the midline. Normal-appearing cervical lordotic curvatures increase in thoracic kyphosis and flattening of lumbar lordotic curvature with well-healed surgical scar noted in the anterior cervical distribution. Easily palpable spinal cord stimulator and easily palpable intrathecal pump on the left lower quadrant of the abdomen is present, spinal cord stimulator in the right gluteus. The patient's upper extremities show deep tendon reflexes at 2+ in the biceps and triceps tendons. Motor exam is strong with offset assistant press operator strength rated at approximately 4/5, but symmetrical. Right acromioclavicular joint much less tender than on previous exam, left side is only very minimally tender. EXTREMITIES: The patient's lower extremities show deep tendon reflexes 1+ in the patellar and tendo calcaneus tendons. Motor exam is about 4/5 with dorsiflexion, extension, quadriceps and hamstring flexion and equal. Peripheral pulses are 2+ radial, 1+ posterior tibial. No peripheral edema in upper or lower extremities noted. Options were discussed with the patient. The patient's old chart was reviewed as her current medication regimen updated. Current review of systems updated today as well. We will proceed with intrathecal pump, refill and reprogramming, as well as PTM reprogramming under sterile prep and drape. Risks were discussed including but not limited to bleeding, infection, possibility of extravasation of the patient's pump medication and possible resuscitative measures as necessary, as well as poor results regarding pain control. The patient understands and wished to proceed. The patient will return to the clinic prior to 12/16/2019, which would be her next refill date or sooner as necessary. DIAGNOSES: 1. Cervical radiculopathy with cervical post-laminectomy syndrome. 2. Lumbar degenerative disk disease. 3. Bilateral knee joint pain with osteoarthritis. 4. Right shoulder joint pain with osteoarthritis. PROCEDURE IN DETAIL: Intrathecal pump refill and reprogramming under sterile prep and drape using local anesthetic topical. Using a 22-gauge noncutting Likeable Localtronic needle, pump was entered without difficulty. A 3 mL of the old medication was withdrawn and discarded and 40 mL of new medication containing bupivacaine, fentanyl and clonidine was then replaced. Needle was withdrawn. Sterile bandage was applied. Pump was then reprogrammed for volume, alarm settings as well as PTM settings. The patient tolerated the procedure well, had no complications. CHITRA EPPERSON MD DR: TRAV/benito JOB#: [id number] / [id number]
== END ==
LOC: PNCL 11:06
PROVIDERS: ATTEND Anesthesiology
DX: M54.12 Radiculopathy, cervical region (principal); M51.36 Other intervertebral disc degeneration, lumbar region; M17.0 Bilateral primary osteoarthritis of knee; M19.011 Primary osteoarthritis, right shoulder
CPT/HCPCS: 95991; J0735; J3010; J3490

== ENCOUNTER → 2019-12-16 | Outpatient (CLI) | payer MEDICARE ==
[~2019-12-16] MED LIST changes: +ESTR-113 PO; -ESTR1TAB15 PO; +LIDOCAINE/PRILOCAINE TOPICAL CREAM 5GM TUBE. TP ONE; +MULT-445 PO; -MULT1TAB52 PO; -WARF-78 PO; +WARF5TAB2 PO
--- NOTE | 2019-12-16 12:45 | PDOC ---
Progress Note - Pain Clinic Date of Service: DOS: DATE: 12/16/19 TIME: 12:40 Diagnosis: Dx: Cervical radiculopathy with cervical postlaminectomy syndrome Bilateral knee joint pain with osteoarthritis Lumbar degenerative disc disease Right shoulder joint pain with osteoarthritis History or Present Illness: HPI: 74-year-old female turns follow-up status post intrathecal pump therapy as well as spinal cord stimulator therapy. Patient reports doing fairly well been on a very stable regimen with oral analgesics as well as intrathecal pump and spinal cord stimulation. Patient reports no significant side effects and reports that more or less she is doing fairly well with about a 75% improvement with her pain on a day-to-day basis. Patient pushing her 's not been very active over the past several months and not been traveling much like they normally would but her pain is been very well controlled she is not using her PTM as frequently. Patient rates her pain is 8 on scale 10 is worse over the past week 7 on average for this least is a 4 today. Patient ports pain the base the neck and shoulders upper back mid back as well as the low back again fairly well-controlled with with intrathecal pump therapy oral medication management and spinal cord stimulation. Patient reports he sleeps fairly well at night does not generally awaken her from sleeping. Physical Exam: VS: Blood pressure is 134/92 pulse 85 respiration 16 temperature 90.2 F 5 feet 2 inches weight is 197 pounds PE: PHYSICAL EXAMINATION: GENERAL: The patient is awake, alert, oriented, appropriate, very pleasant demeanor HEENT: Shows normocephalic, atraumatic. Extraocular movements are intact and symmetrical. Oral cavity: Mucous membranes moist and pink. Dentition is intact. NECK: Shows anterior throat supple without palpable lymphadenopathy noted. Swallow reflex symmetrical. CHEST: Shows normal on inspection. Breath sounds are clear bilaterally, no rales rhonchi or wheezes auscultated. HEART: Shows S1, S2 clear. No murmurs auscultated. ABDOMEN: Soft, nontender, nondistended, obese. Easily palpable intrathecal pump in the left lower quadrant with well-healed surgical scarring and is nontender, no palpable organomegaly is noted. No rebound or guarding demonstrated. BACK: Shows spine grossly in the midline. Normal-appearing cervical lordotic curvature. There is slightly increased thoracic kyphosis, some minor flattening of the lumbar lordotic curvature. Lumbar paraspinous muscles show symmetrical on inspection, on palpation shows some moderate tenderness diffusely throughout the upper, middle and lower distribution of the paraspinous muscles bilaterally and also into the lower thoracic paraspinous musculature, firm and tender, but without specific trigger points, without radiation of pain. The patient has good rotational motion of the lumbar spine, both laterally as well as extension and flexion without significant difficulty. No tenderness over the spinous processes, sacrum or sacroiliac regions. EXTREMITIES: Lower extremities show deep tendon reflexes 1+ in the patellar and tendo calcaneus tendons. Motor exam is 4 on a scale of 5 with right dorsiflexion, extension, quadriceps and hamstring flexion and 4/5 on the left. Peripheral pulses are 1+ posterior tibial. No peripheral edema is noted bilaterally. Lower extremities are warm and dry to touch, equal in color and appearance. SKIN: Shows warm and dry, good turgor. No edema. No sores, rashes or bruising throughout. Procedure: Procedure: Options discussed with the patient. Patient's old chart was reviewed as her current medication regimen updated current review of systems updated today as well and we will proceed with intrathecal pump refill and reprogramming. Risks are again discussed including but not limited to bleeding infection possibility of extravasation of intrathecal pump material as well as resuscitative measures as necessary and poor results regarding pain control. Patient understands wishes to proceed. Medication Injected: Med Injected: Under sterile prep and drape using topical anesthetic patient's intrathecal pump was accessed using a 22-gauge noncutting Medtronic kit needle. Pump was entered without difficulty 4 cc of old medication was withdrawn and 40 cc of medication containing bupivacaine clonidine and fentanyl as documented were then replaced. Needle was removed sterile bandage was applied. Patient's pump was then reprogrammed for volume alarm settings as well as the PTM reprogrammed. Patient tolerated procedure well had no complications. Condition at Discharge: Condition at Discharge: Condition at discharge stable patient tolerated procedure well had no complications. Patient is given refill prescription for hydrocodone with instructions side effects to be aware of as well. CHITRA EPPERSON MD Dec 16, 2019 12:45
== END | disposition home or self-care (01) ==
LOC: PNCL 11:39
PROVIDERS: ATTEND Anesthesiology
DX: M54.12 Radiculopathy, cervical region (principal); M51.36 Other intervertebral disc degeneration, lumbar region; M19.011 Primary osteoarthritis, right shoulder; M17.0 Bilateral primary osteoarthritis of knee; M96.1 Postlaminectomy syndrome, not elsewhere classified; K21.9 Gastro-esophageal reflux disease without esophagitis; Z88.8 Allergy status to other drugs, medicaments and biological substances; Z79.899 Other long term (current) drug therapy
CPT/HCPCS: 95991; J0735; J3010; J3490

== ENCOUNTER → 2020-01-03 | Outpatient (CLI) | payer MEDICARE ==
[~2020-01-03] MED LIST changes: +BUPIVACAINE MPF 0.25% 10 ML VIAL. ONE; -BUPIVACAINE MPF 0.75% 30 ML VIAL. ONE; +IOHEXOL 180 MG/ML 10 ML VIAL. ONE; -LIDOCAINE/PRILOCAINE TOPICAL CREAM 5GM TUBE. TP ONE; -cloNIDine PF 5,000 MCG/10 ML VIAL EP ONE; -fentaNYL PF VIAL 250 MCG/5 ML VIAL ONE; +methylPREDNISolone ACETATE 80 MG/ML VIAL. ONE
--- NOTE | 2020-01-03 10:01 | PDOC ---
Progress Note - Pain Clinic Date of Service: DOS: DATE: 01/03/20 TIME: 09:53 Diagnosis: Dx: Right shoulder joint pain with osteoarthritis right shoulder joint Cervical radiculopathy with cervical post cervical laminectomy syndrome Bilateral knee joint pain with osteoarthritis Lumbar degenerative disc disease with intrathecal therapy and spinal cord stimulator therapy History or Present Illness: HPI: 74-year-old female returns follow-up status post recent pump refill for intrathecal pump as well as injection for her right acromioclavicular joint last injected September 25, 2019. Patient which did very well after the injection with 8090% improvement at that time the pain is returned now on the right shoulder with reaching forward lifting items while reaching as well as carrying items at her side or picking things up with her right arm. Patient kaya pain is in the top of the shoulder radiating into the anterior shoulder slightly sometimes in the posterior shoulder but not further down the arm patient reports is cramping pain in the base the neck aching and sharp at times can be severe and unbearable with reaching and lifting at the same time. Patient kaya wakes her from sleep about once every 6 hours of the right shoulder otherwise she is doing fairly well rates her pain as a 9 on a scale of 10 at its worst 9 on average and a 5 its least is a 5 today. Reports no new motor or sensory deficits no new bowel or bladder incontinence or other complaints. Physical Exam: VS: Blood pressure is 136/87 pulse 69 respirations 18 temperature 98.2 F weight is 198 pounds PE: PHYSICAL EXAMINATION: GENERAL: The patient is awake, alert, oriented, appropriate, very pleasant demeanor HEENT: Shows normocephalic, atraumatic. Extraocular movements are intact and symmetrical. Oral cavity: Mucous membranes moist and pink. NECK: Shows anterior throat supple without palpable lymphadenopathy noted. Swallow reflex symmetrical. CHEST: Shows normal on inspection. Breath sounds are clear bilaterally, no rales rhonchi or wheezes auscultated. HEART: Shows S1, S2 clear. No murmurs auscultated. ABDOMEN: Soft, nontender, nondistended. No palpable organomegaly is noted. No rebound or guarding demonstrated. BACK: Shows spine grossly in the midline. Normal-appearing cervical lordotic curvature. There is slightly increased thoracic kyphosis, some minor flattening of the lumbar lordotic curvature. Lumbar paraspinous muscles show symmetrical on inspection, on palpation shows some moderate tenderness diffusely throughout the upper, middle and lower distribution of the paraspinous muscles bilaterally and also into the lower thoracic paraspinous musculature, firm and tender, but without specific trigger points, without radiation of pain. The patient has good rotational motion of the lumbar spine, both laterally as well as extension and flexion without significant difficulty. No tenderness over the spinous processes, sacrum or sacroiliac regions. EXTREMITIES: upper extremities show deep tendon reflexes 2 in the patellar and tendo calcaneus tendons. Motor exam is 4 on a scale of 5 with right biceps triceps and charge entry clerk flexion and 5/5 on the left. Peripheral pulses are 2+ radial. [] peripheral edema is noted bilaterally. upper extremities are warm and dry to touch, equal in color and appearance. Shoulder shrug is strong and intact without loss of strength on resistance as is abduction of the shoulders but significant pain in the right shoulder with resistance on the right side at the acromioclavicular joint. Palpation of the joint itself on the right side shows significant tenderness in the anterior superior and posterior aspect of the acr omioclavicular joint but without specific radiation. Left side is nontender. SKIN: Shows warm and dry, good turgor. No edema. No sores, rashes or bruising throughout. Procedure: Procedure: Options were discussed with the patient. Patient will chart reviews her current medication regimen updated current review of systems updated today as well. We will proceed with a right sided acromioclavicular joint injection with fluoroscopic guidance today. Risks are discussed including but not limited to bleeding infection possibility of intravascular injection sequelae spread local anesthetic numbness side effects of steroid medication and portal scarring pain control. Patient understands wished to proceed. Patient return to clinic in possibly 4 weeks as scheduled was counseled as return appointment to level and side effects to be aware of. Medication Injected: Med Injected: Under sterile prep and drape using C-arm fluoroscopic guidance patient's right shoulder was visualized and right acromioclavicular joint visualized. Using 1% lidocaine area over the joint was anesthetized and using a 25-gauge needle joint was entered under direct fluoroscopic vision with 0.5 cc of contrast injected with good spread within the joint without washout. At this time 2 cc 02 5% bupivacaine and 80 mg Depo-Medrol was then injected into the joint needle was removed sterile bandage was applied. Patient tolerated procedure well had no complications. Condition at Discharge: Condition at Discharge: Patient discharged stable patient on the procedure well had no complications. CHITRA EPPERSON MD Jan 03, 2020 10:01
== END | disposition home or self-care (01) ==
LOC: PNCL 09:04
PROVIDERS: ATTEND Anesthesiology
DX: M19.011 Primary osteoarthritis, right shoulder (principal); M17.0 Bilateral primary osteoarthritis of knee; M51.36 Other intervertebral disc degeneration, lumbar region; M54.12 Radiculopathy, cervical region; K21.9 Gastro-esophageal reflux disease without esophagitis; Z88.8 Allergy status to other drugs, medicaments and biological substances; Z98.890 Other specified postprocedural states; Z79.899 Other long term (current) drug therapy; Z79.82 Long term (current) use of aspirin
CPT/HCPCS: 20605; J1040; J3490; Q9965

== ENCOUNTER → 2020-01-13 | Outpatient (CLI) | payer MEDICARE ==
--- NOTE | 2020-01-13 10:12 | PDOC ---
Progress Note - Pain Clinic Date of Service: DOS: DATE: 01/13/20 TIME: 10:05 Diagnosis: Dx: Right shoulder joint pain with primary osteoarthritis Cervical radiculopathy with cervical postlaminectomy syndrome Bilateral knee joint pain with osteoarthritis Lumbar degenerative disc disease with intrathecal pump and spinal cord stimulator therapy History or Present Illness: HPI: 74-year-old female returns follow-up status post right acromioclavicular joint injection January 03, 2020. Patient reports only minimal decrease in pain and the pain is worse now with reaching forward and lifting items with weightbearing. Patient relays that reaching to her side of her bed to grab a glass of water and pick it up is becoming more more painful in the joint itself and not as much on the acromioclavicular region. Patient reports no new motor or sensory deficits no loss of function but significant disability from the pain in the right shoulder. Left shoulder is nontender and with full range of motion. Patient rates the pain is 8 on a scale of 10 is worst average and a 3 at its least is an 8 today patient describes it as aching sharp can be severe with movement and reaching constant at times on and off in intensity other times. Patient reports no loss of motor function but significant fatigability with the right shoulder especially with reaching and weightbearing. Reports it wakes her from sleep about every 3 to 4 hours each night over the past week. Physical Exam: VS: Blood pressure is 123/77 pulse 61 respiration 16 temperature 90.0 F height is 5 feet 2 inches PE: PHYSICAL EXAMINATION: GENERAL: The patient is awake, alert, oriented, appropriate, very pleasant demeanor HEENT: Shows normocephalic, atraumatic. Extraocular movements are intact and symmetrical. Oral cavity: Mucous membranes moist and pink. Dentition is intact. NECK: Shows anterior throat supple without palpable lymphadenopathy noted. Swallow reflex symmetrical. Good rotation of motion both laterally as well as extension flexion without significant difficulty. CHEST: Shows normal on inspection. Breath sounds are clear bilaterally. HEART: Shows S1, S2 clear. No murmurs auscultated. ABDOMEN: Soft, nontender, nondistended. No palpable organomegaly is noted. No rebound or guarding demonstrated. BACK: Shows spine grossly in the midline. Normal-appearing cervical lordotic curvature. There is increased thoracic kyphosis, some minor flattening of the lumbar lordotic curvature. Lumbar paraspinous muscles show symmetrical on inspection, on palpation shows some moderate tenderness diffusely throughout the upper, middle and lower distribution of the paraspinous muscles bilaterally and also into the lower thoracic paraspinous musculature, firm and tender, but without specific trigger points, without radiation of pain. The patient has good rotational motion of the lumbar spine, both laterally as well as extension and flexion without significant difficulty. No tenderness over the spinous processes, sacrum or sacroiliac regions. EXTREMITIES: upper extremities show deep tendon reflexes 2+ in the biceps and tricep tendons. Motor exam is 4 on a scale of 5 with right correctional officer chief, bicep and tricep flexion and 5/5 on the left. Peripheral pulses are 2+ radial. No peripheral edema is noted bilaterally. upper extremities are warm and dry to touch, equal in color and appearance. Patient's right shoulder shows signif icant tenderness with external abduction as well as forward reaching and weight resistance. No crepitus over the joints and no ratcheting with range of motion both actively or passively. Left is with full rotation of motion and nontender. SKIN: Shows warm and dry, good turgor. No edema. No sores, rashes or bruising throughout. Procedure: Procedure: Options were discussed with the patient. Patient's old chart was reviewed as her current medication regimen updated current review of systems updated today as well. We will proceed with a right glenohumeral joint injection with fluoroscopic guidance. Risks are discussed including but not limited to bleeding infection possibility of intravascular injection sequelae spread of local anesthetic and numbness side effects of steroid medication exposure fluoroscopy and poor results regarding pain control. Patient understands wished to proceed. Patient will return to clinic in approximately 2 weeks. Patient was counseled as activity level as well as side effects to be aware of. Medication Injected: Med Injected: Under sterile prep and drape patient's right shoulder was visualized using C-arm fluoroscopic guidance and using 1% lidocaine to anesthetize the area over the glenohumeral joint, 22-gauge spinal needle with stylette was then used with direct fluoroscopic view to enter the right glenohumeral shoulder joint without difficulty stylet was removed at this time 1 cc of contrast was injected with go od spread within the glenohumeral joint on the right without washout. After 30 seconds re-fluoroscopy showed no spread of the contrast or washout. At this time 3 cc 0.25% bupivacaine and 80 mg Depo-Medrol was injected at the joint needle was then removed sterile bandage applied. Patient tolerated procedure well had no complications. Condition at Discharge: Condition at Discharge: Patient discharged stable patient alert procedure well had no complications. CHITRA EPPERSON MD Jan 13, 2020 10:12
== END | disposition home or self-care (01) ==
LOC: PNCL 09:02
PROVIDERS: ATTEND Anesthesiology
DX: M19.011 Primary osteoarthritis, right shoulder (principal); M96.1 Postlaminectomy syndrome, not elsewhere classified; M17.0 Bilateral primary osteoarthritis of knee; M54.12 Radiculopathy, cervical region; J44.9 Chronic obstructive pulmonary disease, unspecified; G47.30 Sleep apnea, unspecified; M51.36 Other intervertebral disc degeneration, lumbar region; K21.9 Gastro-esophageal reflux disease without esophagitis; Z88.8 Allergy status to other drugs, medicaments and biological substances; Z79.82 Long term (current) use of aspirin; Z79.899 Other long term (current) drug therapy
CPT/HCPCS: 20610; 77002; J1040; J3490; Q9965

== ENCOUNTER → 2020-02-28 | Outpatient (CLI) | payer MEDICARE ==
[~2020-02-28] MED LIST changes: -BUPIVACAINE MPF 0.25% 10 ML VIAL. ONE; +BUPIVACAINE MPF 0.75% 30 ML VIAL. ONE; -IOHEXOL 180 MG/ML 10 ML VIAL. ONE; +cloNIDine PF 5,000 MCG/10 ML VIAL EP ONE; +fentaNYL PF VIAL 250 MCG/5 ML VIAL ONE; -methylPREDNISolone ACETATE 80 MG/ML VIAL. ONE
--- NOTE | 2020-02-28 10:56 | PDOC ---
Progress Note - Pain Clinic Date of Service: DOS: DATE: 02/28/20 TIME: 10:50 Diagnosis: Dx: Cervical radiculopathy with cervical postlaminectomy syndrome Bilateral knee joint pain with primary osteoarthritis Lumbar degenerative disc disease with intrathecal pump and spinal cord stimulator therapy Right shoulder joint pain with osteoarthritis History or Present Illness: HPI: 74-year-old female returns follow-up status post intrathecal pump therapy for refill pump and reprogramming as well as PTM reprogramming today. Patient reports still significant pain in the low back mid back base of the neck and shoulders upper extremities lower extremities also some pain in the knee especially on the left. Patient reports the pain is aching burning on and off intensity worse with activity worse with walking standing changing positions. Patient reports that she has been fairly inactive lately and this is contributed to some of the pain being worse with changes of position. Patient reports it generally does not awaken her from sleep at night but has over the past few nights with the pain in the low back as well as in the left knee. Patient reports no new motor or sensory deficits no new bowel or bladder incontinence no side effects with the medication. Patient been on very stable medication regimen as well as intrathecal pump and spinal cord stimulator therapy without significant side effects. Physical Exam: VS: Blood pressure is 143/60 pulse 74 respirations are 18 temperature 97.9 F weight is 200 pounds PE: PHYSICAL EXAMINATION: GENERAL: The patient is awake, alert, oriented, appropriate, very pleasant demeanor HEENT: Shows normocephalic, atraumatic. Extraocular movements are intact and symmetrical. Oral cavity: Mucous membranes moist and pink. Dentition is intact. NECK: Shows anterior throat supple without palpable lymphadenopathy noted. Swallow reflex symmetrical. CHEST: Shows normal on inspection. Breath sounds are clear bilaterally, no rales rhonchi wheezes auscultated. HEART: Shows S1, S2 clear. No murmurs auscultated. ABDOMEN: Soft, nontender, nondistended, obese. Easily palpable intrathecal pump is noted in the left lower quadrant with well-healed surgical scarring noted. No palpable organomegaly is noted. No rebound or guarding demonstrated. BACK: Shows spine grossly in the midline. Normal-appearing cervical lordotic curvature. There is increased thoracic kyphosis, some minor flattening of the lumbar lordotic curvature. Lumbar paraspinous muscles show symmetrical on inspection, on palpation shows some moderate tenderness diffusely throughout the upper, middle and lower distribution of the paraspinous muscles bilaterally without specific trigger points, without radiation of pain. The patient has good rotational motion of the lumbar spine, both laterally as well as extension and flexion without significant difficulty. No tenderness over the spinous processes, sacrum or sacroiliac regions. EXTREMITIES: Lower extremities show deep tendon reflexes 1+ in the patellar and tendo calcaneus tendons. Motor exam is 4 on a scale of 5 with right dorsiflexion, extension, quadriceps and hamstring flexion and 4/5 on the left. Peripheral pulses are 1+ posterior tibial. No peripheral edema is noted bilaterally. Lower extremities are warm and dry to touch, equal in color and appearance. SKIN: Shows warm and dry, good turgor. No edema. No sores, rashes or bruising throughout. Procedure: Procedure: Pressure discussed with the patient. Patient's old chart was reviewed as her current medication regimen updated current review of systems updated today as well. We will proceed with refill of intrathecal pump risks are discussed including but not limited to bleeding infection possibility of extravasation of refill medication and possible resuscitative measures necessary as well as exposure fluoroscopy and poor results regarding pain control. Patient understands wished to proceed. Patient will return to clinic for refill prior to May 18, 2020 which will be her next refill date at full maximum use of the PTM. Patient's PTM was reprogrammed as well Medication Injected: Med Injected: Secondary to patient's body habitus and obesity status C-arm fluoroscopic guidance was used for intrathecal pump access. Under sterile prep and drape using C-arm fluoroscopic guidance patient's left lower quadrant was notified and patient intrathecal pump was identified and using 22-gauge noncutting Medtr[employer] needle was entered under direct fluoroscopic vision. 7 cc of all medication was withdrawn and discarded and 40 cc of the new medication containing Vivacaine clonidine and fentanyl was then replaced. Needle was withdrawn and sterile bandage was applied. Patient's pump was refilled program for alarm settings following settings as well as PTM reprogrammed for PTM settings. Condition at Discharge: Condition at Discharge: Condition at discharge is stable patient on the procedure well had no complications. Patient follow-up prior to May 18 which will be her next refill date also have her return prior to that for medication management refill as scheduled. CHITRA EPPERSON MD Feb 28, 2020 10:56
== END ==
LOC: PNCL 10:12
PROVIDERS: ATTEND Anesthesiology
DX: M17.0 Bilateral primary osteoarthritis of knee (principal); M19.011 Primary osteoarthritis, right shoulder; M46.1 Sacroiliitis, not elsewhere classified; M54.12 Radiculopathy, cervical region; M51.36 Other intervertebral disc degeneration, lumbar region; K21.9 Gastro-esophageal reflux disease without esophagitis; J44.9 Chronic obstructive pulmonary disease, unspecified; F41.9 Anxiety disorder, unspecified; F32.9 Major depressive disorder, single episode, unspecified; G47.30 Sleep apnea, unspecified; E78.00 Pure hypercholesterolemia, unspecified; E03.9 Hypothyroidism, unspecified; Z88.8 Allergy status to other drugs, medicaments and biological substances; Z79.899 Other long term (current) drug therapy
CPT/HCPCS: 95991; J0735; J3010; J3490

== ENCOUNTER → 2020-03-10 | Outpatient (CLI) | payer MEDICARE ==
[~2020-03-10] MED LIST changes: +0.9 % SODIUM CHLORIDE 10 ML DISP.SYRIN. ID ONE; -BUPIVACAINE MPF 0.75% 30 ML VIAL. ONE; +CONTRAST GIVEN. MC PRN; +IOHEXOL 300 MG/ML 50 ML VIAL. INT ART ONE; +LIDOCAINE 1% Multi-Dose 20 ML VIAL. ID ONE; -cloNIDine PF 5,000 MCG/10 ML VIAL EP ONE; -fentaNYL PF VIAL 250 MCG/5 ML VIAL ONE
--- NOTE | 2020-03-10 10:26 | KCIC ---
FLUOROSCOPICALLY GUIDED RIGHT SHOULDER ARTHROGRAM 1. INDICATION: The patient is a 74 years old Female who presented with chronic right shoulder pain and decreased range of motion. 2. CONSENT: The risks, benefits, treatment options, potential complications and personnel to be involved were discussed (including the risks of radiation exposure, instruments to be used, contrast and anesthesia administration) with the patient. All questions were answered and consent was obtained. The patient indicated willingness to proceed. 3. GENERAL: a) Medication Reconciliation: The patient's medications and allergies were reviewed in the electronic medical record and reconciled to the proposed procedure/treatment. b) Positioning: The patient was placed Supine on the fluoroscopy table. c) The shoulder was then sterilely prepped and draped. d) Time Out: A time out was performed immediately prior to procedure start with the nursing, anesthesia and interventional team, correctly identifying the patient name, date of , procedure, anatomy (including marking of site and side), patient position, procedure consent form, relevant diagnostic and radiology test results, antibiotic administration, safety precautions, and procedure-specific equipment needs. Procedure Start Time / Timeout Time: 09:30 e) Anesthesia Type: Local anesthesia: 2 mL 1% Lidocaine 4. PROCEDURE: a) Procedure Details: A 20g spinal needle was inserted into the shoulder joint. 1 mL Omnipaque 300 was injected to confirm intra-articular placement of needle. Contrast was observed to flow into the intra-articular space of the joint without significant resistance. 12 mL of injectate was administered into the joint . The needle was removed. Images were stored to the permanent digital archive documenting needle position. b) Injectate Contents: 15 mL Omnipaque 300 5 mL Normal Saline c) Estimated Blood Loss: 0 mL RADIATION DOSE: Fluoroscopic Radiation Summary: Fluoro time: 0:06 min:sec POST PROCEDURE: a) Hemostasis: Hemostasis was achieved using light manual compression. b) Procedure End Time: 09:37 c) Conclusion: The patient was discharged from the radiology department in stable condition. COMPLICATIONS: a) Significant Patient Complication: None If other, explain: b) Complications during the procedure: None If other, explain: 5. RESULTS: Contrast was injected into the joint. 6. IMPRESSION: SUCCESSFUL FLUOROSCOPICALLY GUIDED ARTHROGRAM OF THE RIGHT SHOULDER DESCRIBED ABOVE. Electronically signed by: David Sy DO (03/10/2020 10:23 AM) [id number]
--- NOTE | 2020-03-10 10:47 | KCIC ---
CT ARTHROGRAM RIGHT SHOULDER CLINICAL HISTORY: Chronic right shoulder pain and decreased range of motion with symptoms of weakness and frozen shoulder. History of remote rotator cuff repair. TECHNIQUE: Serial axial images obtained through the right shoulder with sagittal and coronal reconstructions following intra-articular administration of iodinated contrast. Procedural portion of the arthrogram reported separately. CT Dose Reduction Employed: One or more of the following individualized dose reduction techniques were utilized for this examination: 1. Automated exposure control 2. Adjustment of the mA and/or kV according to patient size 3. Use of iterative reconstruction technique. COMPARISON: Right shoulder radiographs 10/09/2019 FINDINGS: Rotator cuff tendons intact without evidence of discrete tear. Long head biceps tendon intact and appropriately located. Rotator cuff and deltoid muscle bulk maintained. Circumferential labral degeneration without discrete tear. Large areas of high grade partial-thickness chondral loss in the humeral head and glenoid. Mild hypertrophic acromioclavicular degenerative changes. No evidence of acute fracture or destructive osseous lesion. Surrounding soft tissues and partially visualized right lung is unremarkable. IMPRESSION: No full-thickness rotator cuff tear. Labral degeneration without discrete tear. Glenohumeral and acromioclavicular degenerative changes as described. Electronically signed by: David Sy DO (03/10/2020 10:45 AM) [id number]
== END | disposition home or self-care (01) ==
LOC: KCIC 08:55
PROVIDERS: ATTEND Orthopaedic Surgery
DX: M25.511 Pain in right shoulder (principal); E78.00 Pure hypercholesterolemia, unspecified; J44.9 Chronic obstructive pulmonary disease, unspecified; E66.9 Obesity, unspecified; G47.30 Sleep apnea, unspecified; K21.9 Gastro-esophageal reflux disease without esophagitis; F41.9 Anxiety disorder, unspecified; F32.9 Major depressive disorder, single episode, unspecified; E03.9 Hypothyroidism, unspecified; M19.90 Unspecified osteoarthritis, unspecified site; Z79.899 Other long term (current) drug therapy; Z98.890 Other specified postprocedural states; Z90.49 Acquired absence of other specified parts of digestive tract; Z88.0 Allergy status to penicillin; Z88.1 Allergy status to other antibiotic agents; Z82.49 Family history of ischemic heart disease and other diseases of the circulatory system
CPT/HCPCS: 23350; 73201; 77002; J3490; Q9967; 73040

== ENCOUNTER → 2020-05-18 | Outpatient (CLI) | payer MEDICARE ==
[~2020-05-18] MED LIST changes: -0.9 % SODIUM CHLORIDE 10 ML DISP.SYRIN. ID ONE; +BUPIVACAINE MPF 0.75% 30 ML VIAL. ONE; -CONTRAST GIVEN. MC PRN; -IOHEXOL 300 MG/ML 50 ML VIAL. INT ART ONE; -LIDOCAINE 1% Multi-Dose 20 ML VIAL. ID ONE; +cloNIDine PF 5,000 MCG/10 ML VIAL EP ONE; +fentaNYL PF VIAL 250 MCG/5 ML VIAL ONE
--- NOTE | 2020-05-18 11:16 | PDOC ---
Progress Note - Pain Clinic Date of Service: DOS: DATE: 05/18/20 TIME: 11:12 Diagnosis: Dx: Cervical radiculopathy with cervical postlaminectomy syndrome Bilateral knee joint pain with osteoarthritis Lumbar degenerative disc disease Right shoulder joint pain with osteoarthritis Intrathecal pump and spinal cord stimulator therapy History or Present Illness: HPI: 74-year-old female returns for follow-up status post intrathecal pump management as well as medication management. Patient already doing very well with approximately 70% improvement with the medications and without significant side effects. Patient is taking tramadol as well as hydrocodone orally and has intrathecal pump with morphine clonidine and bupivacaine. Patient returns today for intrathecal pump refill and reprogramming patient using PTM with less use over the past month or so as she has been since less active and has been at home with the colder weather. Patient reports he is doing well with the neck upper extremities right shoulder pain as well as knee pain and is attending physical therapy for her right shoulder which is helping significantly by about 80%. Patient rates her pain is a 2 on scale 10 is worse over the past week 2 on average and a 0 at its least is a 2 today. Reports most of the pain now is in the back of the neck and shoulders as well as the low back but is very manageable with her current regimen intrathecal therapy and oral therapy. Physical Exam: VS: Blood pressure is 139/79 pulse 65 respiration 16 temperature 98.4 F height is 5 feet 2 inches weight is 197 pounds PE: PHYSICAL EXAMINATION: GENERAL: The patient is awake, alert, oriented, appropriate, very pleasant demeanor HEENT: Shows normocephalic, atraumatic. Extraocular movements are intact and symmetrical. Oral cavity: Mucous membranes moist and pink. NECK: Shows anterior throat supple without palpable lymphadenopathy noted. Swallow reflex symmetrical. CHEST: Shows normal on inspection. Breath sounds are clear bilaterally, no rales or rhonchi. HEART: Shows S1, S2 clear. No murmurs auscultated. ABDOMEN: Soft, nontender, nondistended, obese. Well-healed surgical scars noted with easily palpable intrathecal pump in the left lower quadrant. No palpable organomegaly is noted. No rebound or guarding demonstrated. BACK: Shows spine grossly in the midline. Normal-appearing cervical lordotic curvature. There is slightly increased thoracic kyphosis, some minor flattening of the lumbar lordotic curvature. Lumbar paraspinous muscles show symmetrical on inspection, on palpation shows some moderate tenderness diffusely throughout the upper, middle and lower distribution of the paraspinous muscles, but without specific trigger points, without radiation of pain. The patient has good r otational motion of the lumbar spine, both laterally as well as extension and flexion without significant difficulty. No tenderness over the spinous processes, sacrum or sacroiliac regions. EXTREMITIES: Lower extremities show deep tendon reflexes 1+ in the patellar and tendo calcaneus tendons. Motor exam is 4 on a scale of 5 with right dorsiflexion, extension, quadriceps and hamstring flexion and 4/5 on the left. Peripheral pulses are 1+ posterior tibial. No peripheral edema is noted bilaterally. Lower extremities are warm and dry to touch, equal in color and appearance. SKIN: Shows warm and dry, good turgor. No edema. No sores, rashes or bruising throughout. Procedure: Procedure: Options were discussed with the patient and patient's spouse who accompanied her at her visit today. We will proceed with intrathecal pump refill and reprogramming as well as PTM reprogramming today. Risks discussed including but not limited to bleeding infection possibility of extravasation of medication and positive wart associated measures if necessary as well as exposure to fluoroscopy and portal surrounding pain control. Patient understands wished to proceed. Secondary to patient's obesity we will use fluoroscopic guidance as her pump has been traditionally recently very difficult to find without fluoroscopic guidance secondary to BMI. Medication Injected: Med Injected: Under sterile prep and drape patient's abdomen was prepped over the intrathecal pump, using a 22-gauge noncutting [employer] brand needle the pump was entered without difficulty. Aspiration showed removal of 4 cc of old medication which was discarded. 40 cc of new medication containing bupivacaine clonidine and fentanyl was then replaced. Needle was withdrawn and sterile bandage was applied;pump was then reprogrammed for volume as well as alarm settings and PTM reprogrammed as well. Patient tolerated procedure well had no complications. Condition at Discharge: Condition at Discharge: Condition at discharge stable, patient tolerated procedure well had no complications. Patient return to clinic prior to August 06 which is her refill date with PTM full usage. Patient was given refill prescription for hydroco done, with instructions and side effects to be aware of. CHITRA EPPERSON MD May 18, 2020 11:16
== END | disposition home or self-care (01) ==
LOC: PNCL 09:45
PROVIDERS: ATTEND Anesthesiology
DX: M54.12 Radiculopathy, cervical region (principal); Z45.1 Encounter for adjustment and management of infusion pump; M17.0 Bilateral primary osteoarthritis of knee; M51.36 Other intervertebral disc degeneration, lumbar region; M19.011 Primary osteoarthritis, right shoulder; M96.1 Postlaminectomy syndrome, not elsewhere classified; Z98.890 Other specified postprocedural states; Z91.048 Other nonmedicinal substance allergy status; Z88.1 Allergy status to other antibiotic agents; Z88.8 Allergy status to other drugs, medicaments and biological substances
CPT/HCPCS: 95991; J0735; J3010; J3490

== ENCOUNTER → 2020-08-06 | Outpatient (CLI) | payer MEDICARE ==
[~2020-08-06] MED LIST changes: +FLUC100T4 PO; +LIDOCAINE/PRILOCAINE TOPICAL CREAM 5GM TUBE. TP ONE; +RISP0.253 PO
--- NOTE | 2020-08-06 10:01 | PDOC ---
Progress Note - Pain Clinic Date of Service: DOS: DATE: 08/06/20 TIME: 09:57 Diagnosis: Dx: Cervical radiculopathy with cervical postlaminectomy syndrome Bilateral knee joint pain with osteoarthritis Lumbar degenerative disc disease Right shoulder joint pain with osteoarthritis Intrathecal pump therapy Spinal cord stimulator therapy History or Present Illness: HPI: 75-year-old female returns for follow-up status post intrathecal pump therapy and doing quite well also with medication management orally. Patient reports no specific side effects has been trying to cut down on her hydrocodone and tramadol as she feels that she may have some cognitive memory issues but is seeing a neuropsychologist for this currently as well. Patient reports otherwise doing very well with the medications without any side effects. Patient reports intrathecal pump is functioning well also without any significant problems and without any side effects from it as well. Patient reports no new motor or sensory deficit still complains of pain base the neck and shoulder especially in the left shoulder also upper back mid back and low back but is using heat therapy to decrease the pain as well patient describes pain as aching and tight can be cramping burning at night in the neck especially at bedtime can be constant but is generally off-and-on in intensity during the day better with night and generally is not awaken her from sleep patient reports her pain is a 7 on scale 10 is worse over the past week 5 on average 1 its least is a 5 today. Physical Exam: VS: Blood pressure is 150/95 pulse 87 respirations 18 temperature 90.8 F weight is 196 pounds PE: PHYSICAL EXAMINATION: GENERAL: The patient is awake, alert, oriented, appropriate, very pleasant dem eanor, accompanied by her HEENT: Shows normocephalic, atraumatic. Extraocular movements are intact and symmetrical. Oral cavity: Mucous membranes moist and pink. NECK: Shows anterior throat supple without palpable lymphadenopathy noted. Swallow reflex symmetrical. CHEST: Shows normal on inspection. Breath sounds are clear bilaterally, distant but no rales or rhonchi. HEART: Shows S1, S2 clear. No murmurs auscultated. ABDOMEN: Soft, nontender, nondistended, obese. No palpable organomegaly is n oted. No rebound or guarding demonstrated. Easily palpable intrathecal pump in the left lower quadrant which is mobile but nontender. BACK: Shows spine grossly in the midline. Normal-appearing cervical lordotic curvature. There is slightly increased thoracic kyphosis, some minor flattening of the lumbar lordotic curvature. Lumbar paraspinous muscles show symmetrical on inspection, on palpation shows some moderate tenderness diffusely throughout the upper, middle and lower distribution of the paraspinous muscles without specific trigger points, without radiation of pain. The patient has good rotational motion of the lumbar spine, both laterally as well as extension and flexion without significant difficulty. No tenderness over the spinous processes, sacrum or sacroiliac regions. EXTREMITIES: Lower extremities show deep tendon reflexes 1+ in the patellar and tendo calcaneus tendons. Motor exam is 4 on a scale of 5 with right dorsiflexion, extension, quadriceps and hamstring flexion and 4/5 on the left. Peripheral pulses are 1+ posterior tibial. No peripheral edema is noted bilaterally. Lower extremities are warm and dry to touch, equal in color and appearance. SKIN: Shows warm and dry, good turgor. No edema. No sores, rashes or bruising throughout. Procedure: Procedure: Options were discussed with the patient. Patient chart reviews her current medication regimen updated current review of systems updated today as well. We will refill patient's intrathecal pump also with reprogramming and PTM reprogramming as well today. Risk were discussed including but not limited to bleeding infection possibility of extravasation of intrathecal medication as well as resuscitative measures as necessary exposure fluoroscopy as well as poor results regarding pain control. Patient understands wished to proceed. Patient also be given refill prescription for hydrocodone as well as tramadol with instructions side effects aware of each of the medications discussed with she and her spouse. Patient will follow up for intrathecal pump refill prior to October 25, 2020 or sooner as necessary. Medication Injected: Med Injected: Under sterile prep and drape patient's abdomen was prepped over the intrathecal pump, using a 22-gauge noncutting [employer] brand needle the pump was entered without difficulty. Aspiration showed removal of 3 cc of old medication which was discarded. 40 cc of new medication containing bupivacaine clonidine and fentanyl was then replaced. Needle was withdrawn and sterile bandage was applied;pump was then reprogrammed for volume as well as alarm settings and PTM reprogrammed as well. Patient tolerated procedure well had no complications. Condition at Discharge: Condition at Discharge: Condition at discharge stable, patient tolerated procedure well and had no complications. CHITRA EPPERSON MD Aug 06, 2020 10:01
--- NOTE | 2020-08-06 10:02 | PDOC4 ---
PROCEDURE Procedure Patient was consented for intrathecal pump refill and reprogramming. Risks are discussed including but not limited to bleeding infection possibility of extravasation of intrathecal pump medication as well as resuscitative measures exposure to fluoroscopy and poor results regarding pain control. Patient understands wished to proceed. Under sterile prep and drape patient's abdomen was prepped over the intrathecal pump, using a 22-gauge noncutting [employer] brand needle the pump was entered without difficulty. Aspiration showed removal of 3 cc of old medication which was discarded. 40 cc of new medication containing bupivacaine clonidine and fentanyl was then replaced. Needle was withdrawn and sterile bandage was applied;pump was then reprogrammed for volume as well as alarm settings and PTM reprogrammed as well. Patient tolerated procedure well had no complications. CHITRA EPPERSON MD Aug 06, 2020 10:02
== END | disposition home or self-care (01) ==
LOC: PNCL 08:59
PROVIDERS: ATTEND Anesthesiology
DX: M51.36 Other intervertebral disc degeneration, lumbar region (principal); M54.12 Radiculopathy, cervical region; M17.0 Bilateral primary osteoarthritis of knee; M19.011 Primary osteoarthritis, right shoulder; E78.00 Pure hypercholesterolemia, unspecified; J44.9 Chronic obstructive pulmonary disease, unspecified; G47.30 Sleep apnea, unspecified; E66.9 Obesity, unspecified; K21.9 Gastro-esophageal reflux disease without esophagitis; M19.90 Unspecified osteoarthritis, unspecified site; E03.9 Hypothyroidism, unspecified; F41.9 Anxiety disorder, unspecified; F32.9 Major depressive disorder, single episode, unspecified; Z87.440 Personal history of urinary (tract) infections; Z86.73 Personal history of transient ischemic attack (TIA), and cerebral infarction without residual deficits; Z90.710 Acquired absence of both cervix and uterus; Z98.890 Other specified postprocedural states; Z79.899 Other long term (current) drug therapy; Z88.1 Allergy status to other antibiotic agents; Z88.8 Allergy status to other drugs, medicaments and biological substances
CPT/HCPCS: 95991; J0735; J3010; J3490; 77002

== ENCOUNTER → 2020-10-23 | Outpatient (CLI) | payer MEDICARE ==
[~2020-10-23] MED LIST changes: +GABA300C18 PO; -LIDOCAINE/PRILOCAINE TOPICAL CREAM 5GM TUBE. TP ONE; -OMEP40CA45 PO; +OMEP40CA7 PO; +SOLI10TA2 PO
--- NOTE | 2020-10-23 13:37 | PDOC ---
Progress Note - Pain Clinic Date of Service: DOS: DATE: 10/23/20 TIME: 13:32 Diagnosis: Dx: Cervical radiculopathy with cervical postlaminectomy syndrome Bilateral knee joint pain with osteoarthritis Right shoulder joint pain with osteoarthritis Lumbar degenerative disc disease with intrathecal therapy and spinal cord stimulation therapy History or Present Illness: HPI: 75-year-old female returns in follow-up status post intrathecal pump and oral analgesic medicine management. Patient reports doing fairly well. Percent p rovement after last visit but she has been very sedentary patient reports also she is having some pain in her left calf which comes on and off usually at night but is not there every day or every night but is very excruciating when it does occur. Patient reports no swelling of the calf or warmth temperature change but very very painful back in the knee and into the calf mostly at night patient reports her pain is currently 0 scale 10 that her medications are doing very well and is here for pump refill and reprogramming today. Patient reports no new motor or sensory deficits no new bowel or bladder incontinence or other complaints no side effects with the medications reports overall with the medications alone the oral medications, is about a 75% improvement. With the intrathecal pump addition in the spinal cord stimulator is close to 200% most days. Again, patient has not been very active recently. Physical Exam: VS: Blood pressure is 133/82 pulse 68 respirations 18 temperature 98.2 F height is 5 foot 1 inches weight is 196 pounds PE: PHYSICAL EXAMINATION: GENERAL: The patient is awake, alert, oriented, appropriate, very pleasant in demeanor, patient accompanied by her spouse. HEENT: Shows normocephalic, atraumatic. Extraocular movements are intact and symmetrical. Oral cavity: Mucous membranes moist and pink. NECK: Shows anterior throat supple without palpable lymphadenopathy noted. Swallow reflex symmetrical. CHEST: Shows normal on inspection. Breath sounds are clear bilaterally, distant but no rales or rhonchi auscultated. HEART: Shows S1, S2 clear. No murmurs auscultated. ABDOMEN: Soft, nontender, nondistended, obese. No palpable organomegaly is noted. No rebound or guarding demonstrated. Easily palpable intrathecal pump in the left lower quadrant which is quite mobile with even mild palpation but nontender. Patient has well-healed surgical scarring above the pump itself from placement. BACK: Shows spine grossly in the midline. Normal-appearing cervical lordotic curvature. There is increased thoracic kyphosis, some flattening of the lumbar lordotic curvature. Lumbar paraspinous muscles show symmetrical on inspection, on palpation shows some moderate tenderness diffusely throughout the upper, middle and lower distribution of the paraspinous muscles, but without specific trigger points, without radiation of pain. The patient has good rotational motion of the lumbar spine, both laterally as well as extension and flexion without significant difficulty. No tenderness over the spinous processes, sacrum or sacroiliac regions. EXTREMITIES: Lower extremities show deep tendon reflexes 1+ in the patellar and tendo calcaneus tendons. Motor exam is 4 on a scale of 5 with right dorsiflexion, extension, quadriceps and hamstring flexion and 4/5 on the left. Peripheral pulses are 1+ posterior tibial. No peripheral edema is noted bilaterally. Lower extremities are warm and dry to touch, equal in color and appearance. No specific tenderness with palpation over the left calf or the right calf and negative Homans' sign bilaterally. SKIN: Shows warm and dry, good turgor. No edema. No sores, rashes or bruising throughout. Procedure: Procedure: Options were discussed with the patient patient spouse who accompanied her visit today. We will proceed with intrathecal pump refill and reprogram with C-arm fluoroscopic guidance secondary to patient's BMI and significant obesity, as attempts without fluoroscopic guidance have been impossible previously. Medication Injected: Med Injected: Under sterile prep and drape patient's abdomen was prepped over the intrathecal pump, with C-arm fluoroscopic guidance, using a 22-gauge noncutting [employer] brand needle the pump was entered without difficulty. Aspiration showed removal of 4 cc of old medication which was discarded. 40 cc of new medication containing bupivacaine clonidine and fentanyl was then replaced. Needle was withdrawn and sterile bandage was applied;pump was then reprogrammed for volume as well as alarm settings and PTM reprogrammed as well. Patient tolerated procedure well had no complications. Condition at Discharge: Condition at Discharge: Condition at discharge stable, patient with the procedure well and had no complications. Patient will be sent for ultrasound of the left calf to rule out venous thrombosis. CHITRA EPPERSON MD Oct 23, 2020 13:37
--- NOTE | 2020-10-23 13:38 | PDOC4 ---
Procedure Note: Procedure Note: Patient was consented for intrathecal pump refill and reprogram with C-arm fluoroscopic guidance secondary to patient's obesity. Risk were discussed including but not limited to bleeding infection possibility of extravasation of medication and resuscitative measures necessary as well as poor results regarding pain control and exposure to fluoroscopy. Under sterile prep and drape patient's abdomen was prepped over the intrathecal pump, with C-arm fluoroscopic guidance, using a 22-gauge noncutting [employer] brand needle the pump was entered without difficulty. Aspiration showed removal of 4 cc of old medication which was discarded. 40 cc of new medication containing bupivacaine clonidine and fentanyl was then replaced. Needle was withdrawn and sterile bandage was applied;pump was then reprogrammed for volume as well as alarm settings and PTM reprogrammed as well. Patient tolerated procedure well had no complications. CHITRA EPPERSON MD Oct 23, 2020 13:38
--- NOTE | 2020-10-23 14:11 | RAD ---
Examination: Left Lower Extremity Venous Doppler Ultrasound History: Left calf pain Comparison: None Procedure: Melendez scale, color flow 2D and spectal waveform analysis images are obtained with and witho ut compression in the area of the common femoral vein, superficial femoral vein - femoral vein juncti on, main femoral vein (superficial femoral vein) and popliteal vein. Veins of the proximal calf are a lso imaged. Findings: There is normal duplex flow, color flow and compressibility of all visualized vein segments. No evide nce of deep venous thrombus is present. Impression: No evidence of DVT in the left lower extremity venous system. Electronically signed by: Sourav Lockett MD (10/23/2020 2:08 PM) [id number]
--- NOTE | 2020-11-04 16:01 | FMN ---
PT PROBLEMS Addendum for visit of October 23, 2020: Patient returns for intrathecal pump refill and reprogramming with PTM reprogramming. Patient reports new finding of calf pain in the left lower extremity which is been keeping her awake for several weeks now after she returned from the [place] while she was vacationing with her spouse. Patient reports the Pain keeps her awake and is quite concerned about it. Patient also reports new Acacian change of gabapentin added to her regimen 300 g nightly also solifenacin 10 mg. We will order ultrasound of the left lower extremity to rule out DVT. CHIRTA EPPERSON MD Nov 04, 2020 16:01
== END | disposition home or self-care (01) ==
LOC: PNCL 11:37
PROVIDERS: ATTEND Anesthesiology
DX: M51.36 Other intervertebral disc degeneration, lumbar region (principal); M54.12 Radiculopathy, cervical region; M96.1 Postlaminectomy syndrome, not elsewhere classified; M17.0 Bilateral primary osteoarthritis of knee; M19.011 Primary osteoarthritis, right shoulder; M79.662 Pain in left lower leg; J44.9 Chronic obstructive pulmonary disease, unspecified; E78.00 Pure hypercholesterolemia, unspecified; M19.90 Unspecified osteoarthritis, unspecified site; G47.30 Sleep apnea, unspecified; E66.9 Obesity, unspecified; E03.9 Hypothyroidism, unspecified; F41.9 Anxiety disorder, unspecified; F32.9 Major depressive disorder, single episode, unspecified; Z90.710 Acquired absence of both cervix and uterus; Z98.890 Other specified postprocedural states; Z79.899 Other long term (current) drug therapy; Z79.82 Long term (current) use of aspirin; Z88.1 Allergy status to other antibiotic agents; Z88.8 Allergy status to other drugs, medicaments and biological substances; Z82.49 Family history of ischemic heart disease and other diseases of the circulatory system
CPT/HCPCS: 62370; 93971; J0735; J3010; J3490; 77002

== ENCOUNTER → 2020-12-31 | Outpatient (CLI) | payer MEDICARE ==
[~2020-12-31] MED LIST changes: +ALPR0.5T6 PO; -BUPIVACAINE MPF 0.75% 30 ML VIAL. ONE; +CALC500T54 PO; +CHOL10003 IM; -CHOL10003 PO; +RISP0.5T62 PO; -cloNIDine PF 5,000 MCG/10 ML VIAL EP ONE; -fentaNYL PF VIAL 250 MCG/5 ML VIAL ONE
== END ==
LOC: LAB 13:13
PROVIDERS: ATTEND Podiatrist
DX: M20.22 Hallux rigidus, left foot (principal); Z79.899 Other long term (current) drug therapy
CPT/HCPCS: 36415; 82306; 82310

== ENCOUNTER 2021-01-06 06:01 | Inpatient (IN) | payer MEDICARE ==
[2021-01-06] VITALS (8 sets, daily range): BP systolic 121–148; BP diastolic 55–85
[~2021-01-06] VITALS: Ht 154.9 cm; Wt 87.1 kg
[~2021-01-06 06:01] MED LIST changes: -ALPR0.5T6 PO; +IV RINGERS,LACTATED 1000ML 1,000 ML IV SCH; +MORPHINE SULFATE 2 MG/ML INJ. IVP PRN; +PROCHLORPERAZINE 10 MG/2 ML VIAL. IVP PRN; +fentaNYL PF VIAL 100 MCG/2 ML VIAL IVP PRN
[2021-01-06] MEDS ORDERED: LIDOCAINE 2% PF 5 ML VIAL. ONE (06:51)
[2021-01-06] MEDS ORDERED: PROPOFOL 10 MG/ML (20ML) VIAL. IV ONE ×2 (06:51→08:51)
[2021-01-06] MEDS ORDERED: ONDANSETRON PF 4 MG/2 ML VIAL. ONE (06:51)
[2021-01-06] MEDS ORDERED: DEXAMETHASONE SOD PHOS 4 MG/ML VIAL ONE (06:51)
[2021-01-06] MEDS ORDERED: BUPIVACAINE MPF 0.5% 30 ML VIAL. ONE (07:03)
[2021-01-06] MEDS ORDERED: MIDAZOLAM HCL/PF 2 MG/2 ML VIAL. ONE (07:32)
[2021-01-06] MEDS ORDERED: fentaNYL PF VIAL 100 MCG/2 ML VIAL ONE (07:37)
[2021-01-06] MEDS ORDERED: KETAMINE HCL IN NACL, ISO-OSM 50 MG/5 ML SYRINGE ONE (07:38)
--- NOTE | 2021-01-06 07:44 | PDOC1 ---
History and Physical Date of Service: DOS: DATE: 01/06/21 TIME: 07:34 Chief Complaint: Problems: (1) Bunion Chief Complain: foot pain History of Present Illness: HPI: Patient here for bunion surgery, asked to evaluate for H&P by Podiatry. Patient seen at bedside without complaint. Eager for surgery. She denies any cardiac problems. Denies any diabetes. Believes she may have had a stroke in the past but was never seen in hospital for it. Reports some memory loss after last time she had anesthesia. She has an intrathecal pump and spinal cord stimulator in place for pain control. Past Medical/Surgical History: PMH/PSH: UTI on chronic suppression, psychosis, hypothyroid No hx cardiac, diabetes, stroke Allergies: Allergies: Coded Allergies: prochlorperazine edisylate (Verified Allergy, Severe, Anaphylaxis, 01/06/21) prochlorperazine maleate (Verified Allergy, Severe, Anaphylaxis, 01/06/21) adhesive (Verified Allergy, Intermediate, RASH AND SKIN COMES OFF, 01/06/21) WITH BANDAIDS ciprofloxacin (Verified Adverse Reaction, Intermediate, hallucinations, 01/06/21) ciprofloxacin HCl (Verified Adverse Reaction, Intermediate, hallucinations, 01/06/21) clindamycin (Verified Adverse Reaction, Intermediate, extreme heartburn, 01/06/21) oxycodone (Verified Adverse Reaction, Intermediate, 01/06/21) 'HALLUCINATIONS' Family History: Family History: Noncontribuatory Social History: Social History: Denies alcohol, tobacco, drug use Current Medications: Current Medications Current Medications Fentanyl Citrate (Fentanyl 2ml Vial) 25 mcg PRN Q5MIN PRN IVP MILD PAIN 1-3; Start 01/06/21 at 06:00; Stop 01/06/21 at 20:00 Fentanyl Citrate (Fentanyl 2ml Vial) 50 mcg PRN Q5MIN PRN IVP MODERATE PAIN 4- 6; Start 01/06/21 at 06:00; Stop 01/06/21 at 20:00 Morphine Sulfate (Morphine Sulfate) 1 mg PRN Q10MIN PRN IVP SEVERE PAIN 7-10; Start 01/06/21 at 06:00; Stop 01/06/21 at 20:00 Ringer's Solution 1,000 ml @ 30 mls/hr Q24H IV Last administered on 01/06/21at 06:40; Start 01/06/21 at 06:00; Stop 01/06/21 at 17:59 Hydromorphone HCl (Dilaudid) 0.5 mg PRN Q10MIN PRN IVP SEVERE PAIN 7-10, 2nd CHOICE; Start 01/06/21 at 06:00; Stop 01/06/21 at 20:00 Prochlorperazine Edisylate (Compazine) 5 mg PACU PRN PRN IVP NAUSEA, MRX1; Start 01/06/21 at 06:00; Stop 01/07/21 at 05:59; Status UNV Cefazolin Sodium/ Dextrose 50 ml @ 100 mls/hr 1X PREOP PRN IV PRIOR TO PROCEDURE; Start 01/06/21 at 06:00; Stop 01/06/21 at 18:00 Propofol (Diprivan) 200 mg STK-MED ONCE IV ; Start 01/06/21 at 06:51; Stop 01/06/21 at 06:51; Status DC Lidocaine HCl (Lidocaine Pf 2% Vial) 5 ml STK-MED ONCE .ROUTE ; Start 01/06/21 at 06:51; Stop 01/06/21 at 06:51; Status DC Dexamethasone Sodium Phosphate (Decadron) 4 mg STK-MED ONCE .ROUTE ; Start 01/06/21 at 06:51; Stop 01/06/21 at 06:51; Status DC Ondansetron HCl (Zofran) 4 mg STK-MED ONCE .ROUTE ; Start 01/06/21 at 06:51; Stop 01/06/21 at 06:51; Status DC Bupivacaine HCl (Sensorcaine Mpf 0.5%) 30 ml STK-MED ONCE .ROUTE ; Start 01/06/21 at 07:03; Stop 01/06/21 at 07:04; Status DC Midazolam HCl (Versed) 2 mg STK-MED ONCE .ROUTE ; Start 01/06/21 at 07:32; Stop 01/06/21 at 07:32; Status DC Active Scripts Active Zofran Odt (Ondansetron) 4 Mg Tab.rapdis 1 Tab SL Q8HRS Reported Risperidone 0.5 Mg Tablet 0.25 Mg PO DAILY Calcium (Calcium Carbonate) 500 Mg Tab.chew 600 Mg PO DAILY Vesicare (Solifenacin Succinate) 10 Mg Tablet 1 Tab PO DAILY 30 Days Gabapentin (Gabapentin) 300 Mg Capsule 300 Mg PO HS Pantoprazole Sodium (Pantoprazole Sodium) 40 Mg Tablet.dr 40 Mg PO DAILYAC Hiprex (Methenamine Hippurate) 1 Gm Tablet 1 Gm PO DAILY Aspirin 325 Mg Tablet 325 Mg PO DAILY Tramadol Hcl 50 Mg Tablet 50 Mg PO DAILY PRN Hydrocodone-Apap 5-325 (Hydrocodone Bit/Acetaminophen) 1 Tab Tablet 1 Tab PO PRN Q6HRS PRN [domperidone] 10 Mg PO TID Vitamin D3 (Cholecalciferol (Vitamin D3)) 1,000 Unit Tablet 50,000 Unit IM WEEKLY Multivitamins (Multivitamin) 1 Each Tablet 1 Tab PO DAILY Xanax (Alprazolam) 0.5 Mg Tablet 0.5 Mg PO BID PRN Melatonin 3 Mg Tablet 10 Mg PO QHS Levothyroxine Sodium 50 Mcg Tablet 1 Tab PO DAILY Wellbutrin (Bupropion Hcl) 100 Mg Tablet 100 Mg PO DAILY ROS: Review of Systems Review of System Negative unless noted in hpi Physical Exam: Vital Signs: Vital Signs Date Time Temp Pulse Resp B/P (MAP) Pulse Ox O2 Delivery O2 Flow Rate FiO2 01/06/21 06:36 97.7 78 20 95 97.7 01/06/21 06:18 148/85 Room Air Physcial Exam: GEN: No apparent distress. Alert and oriented HEENT: Normal cephalic, atraumatic, external auditory canals are patent EYES: Extraocular muscles are intact, pupil are equally round and reactive to light and accommodation MUSCULOSKELETAL: Well developed , well nourished, good range of motion ENDOCRINE: No thyromegaly was palpated LYMPHATICS: No cervical chain or axillary nodes were noted HEMATOPOIETIC: No bruising NECK: Supple, no JVD, no thyromegaly was noted LUNGS: Clear to auscultation in all lung muse without rhonchi or wheezing HEART: RRR, S1, S2 present. Peripheral pulses intact, no obvious murmurs noted ABDOMEN: Soft, nontender. Positive bowel sounds, no organomegaly, normal bowel sounds EXTREMITIES: Without clubbing, cyanosis, or edema. Pedal pulses intact. Negative Homans sign NEUROLOGIC: Normal speech and tone. A&O x 3, moves all extremities, no obvious focal deficits PSYCHIATRIC: Normal affect, normal mood. Stable SKIN: No ulcerations or rashes, good skin turgor, no jaundice VASCULAR: Good capillary refill, neurovascular bundle appears to be intact Labs: Labs: Labs reviewed Assessment/Plan Assessment/Plan Pre-Op Bunion Surgery. Joseph score of either 0 or 1 depending on stroke history. Either way low risk for surgery, clear to proceed from my perspective. Home meds reviewed, can resume after surgery. Discussed wtih Dr Logan, patient to see PT/OT in PACU to evaluate if admission required post surgery Justifications for Admission Other Justification SHAINA PIPER MD Jan 06, 2021 07:44
[2021-01-06] MEDS ORDERED: PHENYLEPHRINE in 0.9% NACL PF 1 MG/10 ML SYRINGE. IV ONE (07:57)
[2021-01-06] MEDS ORDERED: KETOROLAC 30 MG/ML VIAL. ONE (08:30)
[2021-01-06] MEDS ORDERED: SEVOFLURANE > 120 MINUTES. IH ONE (08:48)
--- NOTE | 2021-01-06 10:25 | PDOC4 ---
OPERATIVE NOTE Date: Date: May 02, 2017 Pre-Op Diagnosis: Left hallux rigidus, arthritis and bunion deformity Post-Op Diagnosis: Same as above Procedure Performed: Left first MTPJ arthrodesis Surgeon: Ame Oropeza DPM Anesthesia Type: General with LMA Blood Loss: 5 cc Specimans Obtained: None Findings: Significant periarticular osteophyte with at least a 90% articular cartilage erosion across the first MTPJ with arthritic sesamoids plantarly. The bone was soft throughout the first ray. Satisfactory/moderate soft tissue bleeding was noted. Complications: None Operative Note: Under mild sedation, patient was brought into the operating room and placed on operating table in a supine position. A formal timeout confirming patient's identity, procedure, procedure site was carried out. Following IV prophylactic antibiotics, general anesthesia, a well-padded high ankle tourniquet was placed on the left lower extremity. The left lower extremity was then scrubbed, prepped and draped using aseptic techniques. The left lower extremity was exsanguinated and then the tourniquet was inflated to 225 mill mercury. The attention was directed to the dorsal medial aspect of the first MTPJ of the left lower extremity. A linear incision was carried out followed by blunt deep tissue dissection with care to protect and retract all the neurovascular bundles and tendon. A linear capsulotomy was made across the dorsal medial aspect of the first MTPJ in line with the skin incision. The joint capsule was elevated off the first metatarsal head and the base of the proximal hallux with care to avoid over dissection to the lateral aspect of the joint to avoid possible AVN. At this time, we noted a significant periarticular osteophyte across the joint, the articular cartilage was eroded by at least 90% however without significant subchondral cyst. The hallux was abducted off the first metatarsal head at least 20 degrees abutting the second digit. The plantar sesamoids appeared sclerotic and arthritic as well. The bone was also found soft throughout the first ray. Then the osseous prominence was removed with a combination of a bone rongeur and a sagittal saw. Then the articular cartilage across the first MTPJ was debrided with a cone reamer system. The guidewire was confirmed on the lateral x-ray with adequate and satisfactory position to allow adequate joint apposition later. Copious saline solution was used to irrigate the joint. Then the subchondral bone was fenestrated with a combination of an osteotome and 2.0 mm drill bit. At this time, paprika sign was noted. The first MTPJ was positioned with the joint 10 degrees dorsiflexed, 5 degrees abducted, the nail plate was parallel to the weightbearing surface. The position was temporarily fixated with two 0.054 inch K wires traversing the joint. X-ray was utilized to confirm the adequate positioning and joint apposition. Then using standard AO techniques, a 3.5 millimeter screw was placed from distal lateral to proximal medial across the first MTPJ, lag by design. Then a dorsal plate was placed across the joint with a combination of 3.5 mm and 4.3 millimeter screws. The most lateral proximal screw hole was left unfilled as the under drill was collided with the homerun screw and the risk of possible plantar sesamoid irritation. The decision was made to leave the screw hole unfilled to avoid hardware failure. Other than that, intraoperative x-ray remarked adequate hardware length, position, joint apposition, and joint position. Then the surgical site was irrigated with copious saline solution. The capsule was closed with 3-0 Vicryl and skin was closed with 4-0 Monocryl and 4-0 nylon. 10 cc of 0.25% Marcaine plain was infiltrated to the procedure site. At the site was dressed with Betadine soaked Adaptic, 4 x 4 gauze, and ABD. The left lower extremity was then immobilized in a well-padded Rodriguez compression splint. At this time, tourniquet was let down and adequate digital perfusion was noted. Patient tolerated anesthesia and procedure well with vital signs stable and neurovascular status intact. Patient was then transferred to PACU for continuous recovery. Pending left foot 3 view x-ray. AME OROPEZA DPM Jan 06, 2021 10:25
[2021-01-06] MEDS ORDERED: ONDANSETRON PF 4 MG/2 ML VIAL. IVP PRN (10:30)
[2021-01-06] MEDS ORDERED: oxyCODONE/APAP 5/325 1 TAB TABLET PO ONE ×2 (10:30→20:30)
[2021-01-06] MEDS ORDERED: ACETAMINOPHEN 325 MG TABLET. PO ONE (10:30)
[2021-01-06] MEDS ORDERED: GABAPENTIN 100 MG CAPSULE. PO ONE (10:30)
[2021-01-06] MEDS ORDERED: HYDROmorphone 2 MG/ML VIAL ONE (10:38)
[2021-01-06] MEDS: HYDROmorphone 2 MG/ML VIAL IVP PRN ×4 (10:42→15:25)
[2021-01-06] MEDS ORDERED: ONDANSETRON PF 4 MG/2 ML VIAL. IVP ONE (11:00)
[2021-01-06] MEDS: HYDROcodone/APAP 5/325MG 1 TAB TABLET PO ONE ×2 (11:10→13:30)
--- NOTE | 2021-01-06 14:38 | HP ---
ADMIT DATE: 01/06/2021 CHIEF COMPLAINT: Postop left first metatarsophalangeal fusion. HISTORY OF PRESENT ILLNESS: The patient is a pleasant elderly female who has multiple comorbidities. This is her 31st surgery. She underwent a left first metatarsophalangeal fusion today. Dr. Logan performed the surgery and postoperatively, they tried to get her up walking, but it just is not working out. She is too weak. She has got too much pain. She is supposed to be nonweightbearing. I have accepted the patient as admission. We are going to try to get her to senior living. PAST MEDICAL HISTORY: Extensive including anxiety; 31 previous surgeries, cataract surgeries, multiple podiatry surgery, hypothyroidism, depression, chronic pain, arthritis, possible early cognitive issues, but we are not confirmed on that. Her states she is going to see a neurologist pretty soon, UTIs, neuropathy, chronic pain, constipation, GERD, incontinence, bladder spasms, chronic anticoagulation, insomnia, hyperlipidemia, muscle spasms, polypharmacy, gastroparesis, migraines, and hepatitis C. ALLERGIES: None. FAMILY HISTORY: Hypertension. SOCIAL HISTORY: She is . She does not drink, smoke or take drugs. MEDICATIONS: Reviewed. Please refer to the [facility]AD. REVIEW OF SYSTEMS: GENERAL: No history of weight change, weakness or fevers. SKIN: No bruising, hair changes or rashes. EYES: No blurred, double or loss of vision. NOSE AND THROAT: No history of nosebleeds, hoarseness or sore throat. HEART: No history of palpitations, chest pain or shortness of breath on exertion. LUNGS: Denies cough, hemoptysis, wheezing or shortness of breath. GASTROINTESTINAL: Denies changes in appetite, nausea, vomiting, diarrhea or constipation. GENITOURINARY: No history of frequency, urgency, hesitancy or nocturia. NEUROLOGIC: Denies history of numbness, tingling, tremor or weakness. PSYCHIATRIC: No history of panic, anxiety or depression. ENDOCRINE: No history of heat or cold intolerance, polyuria or polydipsia. EXTREMITIES: She complains of left toe pain. PHYSICAL EXAMINATION: VITALS: Within normal limits and are stable. GENERAL: No apparent distress. Alert and oriented. HEENT: Normal cephalic atraumatic, external auditory canals are patent EYES: Extraocular muscles are intact, pupils are equally round and reactive to light and accommodation MUSCULOSKELETAL: Well developed, well nourished, good range of motion. ENDOCRINE: No thyromegaly was palpated. LYMPHATICS: No cervical chain or axillary nodes were noted. HEMATOPOIETIC: No bruising. NECK: Supple, no JVD, no thyromegaly was noted. LUNGS: Clear to auscultation in all lung muse without rhonchi or wheezing. HEART: RRR, S1, S2 present. Peripheral pulses intact, no obvious murmurs were noted. ABDOMEN: Soft, nontender. Positive bowel sounds no organomegaly, normal bowel sounds. EXTREMITIES: She has a cast on the left foot. NEUROLOGIC: Normal speech, normal tone. A and O x3, moves all extremities, no obvious focal deficits. PSYCHIATRIC: Normal affect, normal mood. Stable. SKIN: No ulcerations or rashes, good skin turgor, no jaundice. VASCULAR: Good capillary refill, neurovascular bundle appears to be intact. ASSESSMENT AND PLAN: Postoperative left first metatarsophalangeal fusion with intractable pain and inability to walk. The patient has been admitted. We will consult Dr. Logan, Wound Care, IV antibiotics, PT, OT., p.r.n. pain meds, DVT prophylaxis. Full code. Consult [facility] for senior living. JAYA/SHAI DR: JAYA/benito TID: [id number]
[2021-01-06] MEDS ORDERED: ONDANSETRON ODT 4 MG TAB.RAPDIS. PO PRN (15:15)
--- NOTE | 2021-01-06 17:28 | RAD ---
EXAM: XR FOOT_LEFT 3 VIEWS 01/06/2021 10:22 AM CLINICAL INDICATION: Postop COMPARISON: Bilateral foot radiograph 12/28/2020 TECHNIQUE: 3 views of the left foot FINDINGS: An overlying bandage obscures bony detail. There are surgical changes of hallux valgus cor rection and arthrodesis of the great toe MTP joint. No evidence of hardware complication. Evaluation for osseous bridging is limited due to overlying bandage of hardware. No definite acute fracture. The re is soft tissue swelling along the dorsum of the forefoot. IMPRESSION: New surgical changes of great toe MTP joint arthrodesis. Electronically signed by: Marie Brownlee MD (01/06/2021 5:26 PM) [id number]
--- NOTE | 2021-01-06 18:23 | NUR ---
received from pacu. she is alert and oriented x4. at bedside. she had foot/toe surgery. left foot elevated on 2 pillows and ice bag under knee. she has some numbness in toes but has movement in the toes that are visible.
[2021-01-06] MEDS: risperiDONE 0.25 MG TABLET. PO SCH (20:21)
[2021-01-06] MEDS: OXYBUTYNIN CHLORIDE 5 MG TABLET PO SCH (20:21)
[2021-01-06] MEDS: ALPRAZolam 0.5 MG TABLET PO PRN (20:22)
[2021-01-06] MEDS ORDERED: ACETAMINOPHEN 325 MG TABLET. PO PRN (20:45)
[2021-01-06] MEDS ORDERED: GABAPENTIN 300 MG CAPSULE. PO SCH (21:00)
[2021-01-06] MEDS ORDERED: NON FORMULARY ITEM (Melatonin 10 MG) PO SCH (21:00)
[2021-01-06] MEDS ORDERED: GABAPENTIN 100 MG CAPSULE. PO SCH (21:00)
[2021-01-06] MEDS ORDERED: MORPHINE SULFATE 2 MG/ML INJ. IVP PRN (21:45)
[2021-01-07] MEDS: HYDROcodone/APAP 5/325MG 1 TAB TABLET PO PRN ×2 (01:50→15:18)
[2021-01-07 03:00] VITALS: BP 119/58
[2021-01-07] MEDS: traMADol 50 MG TABLET PO PRN ×3 (05:52→22:25)
[2021-01-07] MEDS: LEVOTHYROXINE 50 MCG TABLET PO SCH (05:52)
[2021-01-07] MEDS: PANTOPRAZOLE 40 MG TABLET.DR. PO SCH (05:52)
[2021-01-07] MEDS: ACETAMINOPHEN 325 MG TABLET. PO SCH ×4 (05:54→17:42)
[2021-01-07 07:00] VITALS: BP 139/70
[2021-01-07] MEDS: OXYBUTYNIN CHLORIDE 5 MG TABLET PO SCH ×3 (08:29→20:03)
[2021-01-07] MEDS: MULTIVITAMIN with MINERAL TABLET. PO SCH (08:29)
[2021-01-07] MEDS: ASPIRIN 325 MG TABLET PO SCH (08:29)
[2021-01-07] MEDS: GABAPENTIN 100 MG CAPSULE. PO SCH ×3 (08:29→20:04)
[2021-01-07] MEDS: CALCIUM CARBONATE 500 MG TABLET PO SCH (08:29)
[2021-01-07] MEDS ORDERED: METHENAMINE HIPPURATE 1 GM PO SCH (09:00)
--- NOTE | 2021-01-07 09:37 | PDOC ---
PROGRESS NOTES Date of Service DATE: 01/07/21 TIME: 09:35 Subjective Subjective [DOS January 06, 2021] left first MTPJ fusion Patient was seen at bedside. Denies overnight events or constitutional symptoms. The dressing has been kept clean and dry and tolerated well. The surgical foot is elevated on two pillows with the toes near the heart level. The pain is well managed with current medicine, and rated 4/10, throbbing in nature localized to left big toe joint. Otherwise, patient has been working well with physical therapy. Objective Objective Vital Signs Date Time Temp Pulse Resp B/P (MAP) Pulse Ox O2 Delivery O2 Flow Rate FiO2 01/07/21 07:00 97.7 76 18 139/70 (93) 92 Room Air 97.7 01/06/21 21:27 2.0 Intake and Output 01/07/21 07:00 Intake Total 2600 ml Output Total 5 ml Balance 2595 ml Intake Oral 300 ml IV Total 2300 ml Output Estimated Blood Loss 5 ml # Voids 8 Physical Exam Physical Exam General: Pleasant without apparent distress, AOx3 Dermatology: -The postoperative splint and dressing are Clean, dry and intact. There is no strikethrough Vascular: -Digits are warm to touch with adequate CFT<3 seconds Neurology: -Light touch sensation diminished to the level of digits 1 through 5 MSK: -Able to move digits -Calf is soft and nontender Diagnosis DIAGNOSIS Left first MTPJ arthritis, hallux valgus Assessment Assessment S/p left first MTPJ fusion on January 06, 2021 Plan Plan of Care -Explained intraoperative findings with patient. The bones across the first ray were soft concerning for possible delayed healing. I reiterated the importance of nonweightbearing restriction to avoid hardware failure. -Keep the postoperative splint and dressing clean, dry and intact -Weightbearing restriction: Strict nonweightbearing to the left surgical foot -Physical therapy: Please help with upper body mobility, sit, pivot and chair transfer while keeping the pressure and weight of the left foot -Nurse communication: - Elevate the surgical foot with at least two pillows behind the calf so that the heel is floated with toes elevated to the level of the heart, per tolerance 45 min/h -Ice behind the knee 15 mins/h for pain as needed -Pain management: Scheduled Tylenol, gabapentin, as needed hydrocodone, tramadol -Encouraged compliance with incentive spirometry -DVT prophylaxis with 81 mg aspirin daily until fully weight-bearing Dispo: -From my perspective no further intervention from my department is indicated du ring her stay at the hospital -Per PT recommendation, continue with postoperative PT with possible SNF placement. Appreciate social workers help on placement -Please refer to a forementioned weightbearing restriction, elevation, icing -Pain management as above: Tylenol 650 mg 4 times daily, as needed, tramadol 50 mg 4 times 4 times daily, as needed, Tony 5 mg/325mg 4 times daily, as needed for 5 to 10 days after surgery -Continue with 50,000 international units of vitamin D3 weekly -DVT prophylaxis with 81 mg aspirin daily until fully weight-bearing -Return for 2-week postoperative follow-up in the clinic. Our office will call for appointment Comment Review of Relevant I have reviewed the following items néstor (where applicable) has been applied. Medications Current Medications Fentanyl Citrate (Fentanyl 2ml Vial) 25 mcg PRN Q5MIN PRN IVP MILD PAIN 1-3; Start 01/06/21 at 06:00; Stop 01/06/21 at 20:00; Status DC Fentanyl Citrate (Fentanyl 2ml Vial) 50 mcg PRN Q5MIN PRN IVP MODERATE PAIN 4- 6; Start 01/06/21 at 06:00; Stop 01/06/21 at 20:00; Status DC Morphine Sulfate (Morphine Sulfate) 1 mg PRN Q10MIN PRN IVP SEVERE PAIN 7-10; Start 01/06/21 at 06:00; Stop 01/06/21 at 20:00; Status DC Ringer's Solution 1,000 ml @ 30 mls/hr Q24H IV Last administered on 01/06/21at 06:40; Start 01/06/21 at 06:00; Stop 01/06/21 at 17:59; Status DC Hydromorphone HCl (Dilaudid) 0.5 mg PRN Q10MIN PRN IVP SEVERE PAIN 7-10, 2nd CHOICE Last administered on 01/06/21at 15:25; Start 01/06/21 at 06:00; Stop 01/06/21 at 20:00; Status DC Prochlorperazine Edisylate (Compazine) 5 mg PACU PRN PRN IVP NAUSEA, MRX1; Start 01/06/21 at 06:00; Stop 01/07/21 at 05:59; Status UNV Cefazolin Sodium/ Dextrose 50 ml @ 100 mls/hr 1X PREOP PRN IV PRIOR TO PROCEDURE Last administered on 01/06/21at 07:36; Start 01/06/21 at 06:00; Stop 01/06/21 at 18:00; Status DC Propofol (Diprivan) 200 mg STK-MED ONCE IV ; Start 01/06/21 at 06:51; Stop 01/06/21 at 06:51; Status DC Lidocaine HCl (Lidocaine Pf 2% Vial) 5 ml STK-MED ONCE .ROUTE ; Start 01/06/21 at 06:51; Stop 01/06/21 at 06:51; Status DC Dexamethasone Sodium Phosphate (Decadron) 4 mg STK-MED ONCE .ROUTE ; Start 01/06/21 at 06:51; Stop 01/06/21 at 06:51; Status DC Ondansetron HCl (Zofran) 4 mg STK-MED ONCE .ROUTE ; Start 01/06/21 at 06:51; Stop 01/06/21 at 06:51; Status DC Bupivacaine HCl (Sensorcaine Mpf 0.5%) 30 ml STK-MED ONCE .ROUTE Last administered on 01/06/21at 07:44; Start 01/06/21 at 07:03; Stop 01/06/21 at 07:04; Status DC Midazolam HCl (Versed) 2 mg STK-MED ONCE .ROUTE ; Start 01/06/21 at 07:32; Stop 01/06/21 at 07:32; Status DC Fentanyl Citrate (Fentanyl 2ml Vial) 100 mcg STK-MED ONCE .ROUTE ; Start 01/06/21 at 07:37; Stop 01/06/21 at 07:37; Status DC Ketamine HCl (Ketamine) 50 mg STK-MED ONCE .ROUTE ; Start 01/06/21 at 07:38; Stop 01/06/21 at 07:39; Status DC Phenylephrine HCl (PHENYLEPHRINE in 0.9% NACL PF) 1 mg STK-MED ONCE IV ; Start 01/06/21 at 07:57; Stop 01/06/21 at 07:57; Status DC Ketorolac Tromethamine (Toradol 30mg Vial) 30 mg STK-MED ONCE .ROUTE ; Start 01/06/21 at 08:30; Stop 01/06/21 at 08:30; Status DC Sevoflurane (Ultane) 90 ml STK-MED ONCE IH ; Start 01/06/21 at 08:48; Stop 01/06/21 at 08:48; Status DC Propofol (Diprivan) 200 mg STK-MED ONCE IV ; Start 01/06/21 at 08:51; Stop 01/06/21 at 08:51; Status DC Ondansetron HCl (Zofran) 4 mg PRN Q4HRS PRN IVP NAUSEA/VOMITING; Start 01/06/21 at 10:30 Gabapentin (Neurontin) 100 mg ONCE ONCE PO Last administered on 01/06/21at 11:10; Start 01/06/21 at 10:30; Stop 01/06/21 at 10:31; Status DC Acetaminophen (Tylenol) 650 mg 1X ONCE PO Last administered on 01/06/21at 11:10; Start 01/06/21 at 10:30; Stop 01/06/21 at 10:31; Status DC Oxycodone/ Acetaminophen (Percocet 5/325) 1 tab 1X ONCE PO ; Start 01/06/21 at 10:30; Stop 01/06/21 at 10:31; Status DC Hydromorphone HCl (Dilaudid) 2 mg STK-MED ONCE .ROUTE ; Start 01/06/21 at 10:38; Stop 01/06/21 at 10:39; Status DC Acetaminophen/ Hydrocodone Bitart (Lortab 5/325) 1 tab 1X ONCE PO Last administered on 01/06/21at 13:30; Start 01/06/21 at 11:00; Stop 01/06/21 at 11:01; Status DC Ondansetron HCl (Zofran) 4 mg 1X ONCE IVP Last administered on 01/06/21at 11:00; Start 01/06/21 at 11:00; Stop 01/06/21 at 11:01; Status DC Alprazolam (Xanax) 0.5 mg PRN BID PRN PO ANXIETY / AGITATION Last administered on 01/06/21at 20:22; Start 01/06/21 at 15:15 Aspirin (Ale Aspirin) 325 mg DAILY PO Last administered on 01/07/21at 08:29; Start 01/07/21 at 09:00 Bupropion HCl (Wellbutrin) 100 mg DAILY PO ; Start 01/07/21 at 09:00 Ergocalciferol (Vitamin D2) 50,000 unit WEEKLY PO ; Start 01/13/21 at 09:00 Gabapentin (Neurontin) 300 mg HS PO Last administered on 01/06/21at 20:21; Start 01/06/21 at 21:00; Stop 01/06/21 at 20:39; Status DC Levothyroxine Sodium (Synthroid) 50 mcg DAILY06 PO Last administered on 01/07/21at 05:52; Start 01/07/21 at 06:00 Ondansetron HCl (Zofran Odt) 4 mg PRN Q8HRS PRN PO NAUSEA; Start 01/06/21 at 15:15 Pantoprazole Sodium (Protonix) 40 mg DAILYAC PO Last administered on 01/07/21at 05:52; Start 01/07/21 at 07:30 Calcium Carbonate/ Glycine (Oscal) 500 mg DAILY PO Last administered on 01/07/21at 08:29; Start 01/07/21 at 09:00 Non-Formulary Medication (Melatonin ) 10 mg QHS PO ; Start 01/06/21 at 21:00; St atus UNV Non-Formulary Medication (Methenamine Hippurate (Hiprex)) 1 gm DAILY PO ; Start 01/07/21 at 09:00; Status UNV Multivitamins (Thera M Plus) 1 tab DAILY PO Last administered on 01/07/21at 08:29; Start 01/07/21 at 09:00 Risperidone (RisperDAL) 0.25 mg QHS PO Last administered on 01/06/21at 20:21; Start 01/06/21 at 21:00 Oxybutynin Chloride (Ditropan) 5 mg [id number] PO Last administered on 01/07/21at 08:29; Start 01/06/21 at 21:00 Non-Formulary Medication ([domperidone] ) 10 mg TID PO ; Start 01/06/21 at 21:00; Status UNV Oxycodone/ Acetaminophen (Percocet 5/325) 1 tab 1X ONCE PO Last administered on 01/06/21at 20:57; Start 01/06/21 at 20:30; Stop 01/06/21 at 20:31; Status DC Acetaminophen/ Hydrocodone Bitart (Lortab 5/325) 1 tab PRN Q6HRS PRN PO PAIN Last administered on 01/07/21at 01:50; Start 01/06/21 at 20:45 Gabapentin (Neurontin) 100 mg TID PO ; Start 01/06/21 at 21:00; Stop 01/06/21 at 20:39; Status DC Acetaminophen (Tylenol) 325 mg PRN Q6HRS PRN PO MILD PAIN / TEMP > 100.3'F; Start 01/06/21 at 20:45; Status Cancel Tramadol HCl (Ultram) 50 mg PRN Q6HRS PRN PO PAIN Last administered on 01/07/21at 05:52; Start 01/06/21 at 20:45 Gabapentin (Neurontin) 100 mg TID PO Last administered on 01/07/21at 08:29; Start 01/07/21 at 09:00 Acetaminophen (Tylenol) 650 mg Q6HRS PO Last administered on 01/07/21at 05:54; Start 01/07/21 at 00:00 Morphine Sulfate (Morphine Sulfate) 1 mg PRN Q2HR PRN IVP SEVERE PAIN 7-10; Start 01/06/21 at 21:45 Active Scripts Active Zofran Odt (Ondansetron) 4 Mg Tab.rapdis 1 Tab SL Q8HRS Reported Risperidone 0.5 Mg Tablet 0.25 Mg PO DAILY Calcium (Calcium Carbonate) 500 Mg Tab.chew 600 Mg PO DAILY Vesicare (Solifenacin Succinate) 10 Mg Tablet 1 Tab PO DAILY 30 Days Gabapentin (Gabapentin) 300 Mg Capsule 300 Mg PO HS Pantoprazole Sodium (Pantoprazole Sodium) 40 Mg Tablet.dr 40 Mg PO DAILYAC Hiprex (Methenamine Hippurate) 1 Gm Tablet 1 Gm PO DAILY Aspirin 325 Mg Tablet 325 Mg PO DAILY Tramadol Hcl 50 Mg Tablet 50 Mg PO DAILY PRN Hydrocodone-Apap 5-325 (Hydrocodone Bit/Acetaminophen) 1 Tab Tablet 1 Tab PO PRN Q6HRS PRN [domperidone] 10 Mg PO TID Vitamin D3 (Cholecalciferol (Vitamin D3)) 1,000 Unit Tablet 50,000 Unit IM WEEKLY Multivitamins (Multivitamin) 1 Each Tablet 1 Tab PO DAILY Xanax (Alprazolam) 0.5 Mg Tablet 0.5 Mg PO BID PRN Melatonin 3 Mg Tablet 10 Mg PO QHS Levothyroxine Sodium 50 Mcg Tablet 1 Tab PO DAILY Wellbutrin (Bupropion Hcl) 100 Mg Tablet 100 Mg PO DAILY Vitals/I & O Vital Sign - Last 24 Hours 01/06/21 01/06/21 01/06/21 01/06/21 10:13 10:13 10:26 10:41 Temp 97.0 97.0 Pulse 51 66 68 Resp 21 B/P (MAP) 121/68 153/103 150/86 Pulse Ox 99 99 92 O2 Delivery Simple Mask Mask Simple Mask Room Air O2 Flow Rate 6 6 6 01/06/21 01/06/21 01/06/21 01/06/21 10:56 11:11 16:00 16:15 Temp 98.2 98.2 Pulse 68 68 55 52 Resp 28 24 20 16 B/P (MAP) 143/80 147/88 130/66 (87) 129/65 (86) Pulse Ox 93 92 94 92 O2 Delivery Room Air Room Air Room Air Room Air 01/06/21 01/06/21 01/06/21 01/06/21 16:46 17:02 17:30 17:30 Pulse 55 55 61 Resp 16 16 16 B/P (MAP) 133/55 (81) 121/64 (83) 131/72 (91) Pulse Ox 88 94 95 O2 Delivery Room Air Room Air Nasal Cannula Nasal Cannula O2 Flow Rate 1.0 1.0 01/06/21 01/06/21 01/06/21 01/06/21 18:30 19:00 20:00 21:27 Temp 98.0 98.0 Pulse 57 69 Resp 16 16 20 B/P (MAP) 130/80 (97) 132/70 (90) Pulse Ox 92 94 92 O2 Delivery Nasal Cannula Nasal Cannula Room Air Room Air O2 Flow Rate 1.0 1.0 2.0 01/06/21 01/07/21 01/07/21 01/07/21 22:45 01:50 03:00 06:22 Temp 98.0 98.1 98.0 98.1 Pulse 47 55 Resp 18 18 20 B/P (MAP) 133/65 (87) 119/58 (78) Pulse Ox 92 92 O2 Delivery BiPAP/CPAP Room Air BiPAP/CPAP Nasal Cannula 01/07/21 07:00 Temp 97.7 97.7 Pulse 76 Resp 18 B/P (MAP) 139/70 (93) Pulse Ox 92 O2 Delivery Room Air Intake and Output 01/06/21 01/06/21 01/07/21 15:00 23:00 07:00 Intake Total 1350 ml 1150 ml 100 ml Output Total 5 ml Balance 1345 ml 1150 ml 100 ml Justifications for Admission Other Justification AME OROPEZA DPM Jan 07, 2021 09:37
[2021-01-07] MEDS: buPROPion 100 MG TABLET. PO SCH (10:49)
[2021-01-07 11:00] VITALS: BP 117/63
[2021-01-07 15:00] VITALS: BP 122/70
[2021-01-07 19:00] VITALS: BP 103/67
[2021-01-07] MEDS: ALPRAZolam 0.5 MG TABLET PO PRN (20:03)
[2021-01-07] MEDS: risperiDONE 0.25 MG TABLET. PO SCH (20:03)
[2021-01-07 22:43] VITALS: BP 124/71
[2021-01-08] MEDS: ACETAMINOPHEN 325 MG TABLET. PO SCH ×4 (00:10→18:00)
[2021-01-08] MEDS: HYDROcodone/APAP 5/325MG 1 TAB TABLET PO PRN ×3 (00:11→19:44)
[2021-01-08 02:46] VITALS: BP 165/94
[2021-01-08] MEDS: traMADol 50 MG TABLET PO PRN (05:56)
[2021-01-08] MEDS: LEVOTHYROXINE 50 MCG TABLET PO SCH ×2 (05:56→11:56)
[2021-01-08] MEDS: PANTOPRAZOLE 40 MG TABLET.DR. PO SCH (05:57)
[2021-01-08 07:00] VITALS: BP 126/59
[2021-01-08] MEDS: ASPIRIN 325 MG TABLET PO SCH (08:18)
[2021-01-08] MEDS: MULTIVITAMIN with MINERAL TABLET. PO SCH (08:19)
[2021-01-08] MEDS: buPROPion 100 MG TABLET. PO SCH (08:19)
[2021-01-08] MEDS: OXYBUTYNIN CHLORIDE 5 MG TABLET PO SCH ×3 (08:19→21:40)
[2021-01-08] MEDS: CALCIUM CARBONATE 500 MG TABLET PO SCH (08:19)
[2021-01-08] MEDS: GABAPENTIN 100 MG CAPSULE. PO SCH ×3 (08:19→21:40)
[2021-01-08 10:46] VITALS: BP 127/73
--- NOTE | 2021-01-08 14:42 | PDOC ---
[facility] PROGRESS NOTE Date of Service DOS: DATE: 01/08/21 TIME: 14:41 Chief Complaint Chief Complaint Postop day 2 left first metatarsophalangeal fusion History of the following: anxiety; 31 previous surgeries, cataract surgeries, multiple podiatry surgery, hypothyroidism, depression, chronic pain, arthritis, possible early cognitive issues, but we are not confirmed on that. Her states she is going to see a neurologist pretty soon, UTIs, neuropathy, chronic pain, constipation, GERD, incontinence, bladder spasms, chronic anticoagulation, insomnia, hyperlipidemia, muscle spasms, polypharmacy, gastroparesis, migraines, and hepatitis C. History of Present Illness History of Present Illness 01/08/2021 Patient seen and examined exam discussed with RN Chart reviewed Vitals/I&O Vitals/I&O: Vital Signs Date Time Temp Pulse Resp B/P (MAP) Pulse Ox O2 Delivery O2 Flow Rate FiO2 01/08/21 10:46 98.2 64 18 127/73 (91) 91 Room Air 98.2 01/08/21 02:38 2.0 I & O 01/07/21 01/07/21 01/08/21 15:00 23:00 07:00 Intake Total 480 ml Balance 480 ml Physical Exam General: Alert Heart: Regular rate Lungs: Clear Abdomen: Normal bowel sounds Extremities: No clubbing, Other (Left foot with clean dry intact dressing and a cast) Skin: No rashes Labs Labs: Laboratory Tests Test 01/07/21 16:45 SARS-CoV-2 RNA (TRACE) Negative (Negative) SARS-CoV-2 Antigen (Rapid) Negative (NEGATIVE) Assessment and Plan Assessmemt and Plan Postop day 2 left first metatarsophalangeal fusion History of the following: anxiety; 31 previous surgeries, cataract surgeries, multiple podiatry surgery, hypothyroidism, depression, chronic pain, arthritis, possible early cognitive issues, but we are not confirmed on that. Her states she is going to see a neurologist pretty soon, UTIs, neuropathy, chronic pain, constipation, GERD, incontinence, bladder spasms, chronic anticoagulation, insomnia, hyperlipidemia, muscle spasms, polypharmacy, gastroparesis, migraines, and hepatitis C. Plan Wound care As needed pain meds PT OT Home meds DVT prophylaxis Full code Discharge disposition pending Comment Review of Relevant I have reviewed the following items néstor (where applicable) has been applied. Justifications for Admission Other Justification MISA HERNANDEZ III DO Jan 08, 2021 14:42
[2021-01-08 14:52] VITALS: BP 128/60
[2021-01-08 20:10] VITALS: BP 167/76
[2021-01-08] MEDS: risperiDONE 0.25 MG TABLET. PO SCH (21:40)
[2021-01-08 23:15] VITALS: BP 149/79
[2021-01-09] MEDS: ACETAMINOPHEN 325 MG TABLET. PO SCH ×5 (00:20→22:17)
[2021-01-09 03:13] VITALS: BP 106/51
[2021-01-09 07:00] VITALS: BP 161/80
[2021-01-09] MEDS: GABAPENTIN 100 MG CAPSULE. PO SCH ×3 (08:35→20:14)
[2021-01-09] MEDS: MULTIVITAMIN with MINERAL TABLET. PO SCH (08:36)
[2021-01-09] MEDS: PANTOPRAZOLE 40 MG TABLET.DR. PO SCH (08:36)
[2021-01-09] MEDS: buPROPion 100 MG TABLET. PO SCH (08:36)
[2021-01-09] MEDS: ASPIRIN 325 MG TABLET PO SCH (08:36)
[2021-01-09] MEDS: CALCIUM CARBONATE 500 MG TABLET PO SCH (08:36)
[2021-01-09] MEDS: HYDROcodone/APAP 5/325MG 1 TAB TABLET PO PRN (08:36)
[2021-01-09] MEDS: OXYBUTYNIN CHLORIDE 5 MG TABLET PO SCH ×3 (08:36→20:14)
--- NOTE | 2021-01-09 10:28 | PDOC ---
[facility] PROGRESS NOTE Date of Service DOS: DATE: 01/09/21 TIME: 10:17 Chief Complaint Chief Complaint Left first metatarsophalangeal fusion Anxiety Cataract surgery Multiple podiatry surgeries hypothyroidism Depression chronic pain arthritis possible early cognitive issues chronic pain constipation GERD Incontinence Bladder spasms chronic anticoagulation insomnia hyperlipidemia muscle spasms polypharmacy gastroparesis migraines hepatitis C History of Present Illness History of Present Illness 01/08/2021 Patient seen and examined exam discussed with RN Chart reviewed 01/09: Mrs. Mcqueen was seen and evaluated in her room this morning. She was seated at the edge of her bed, working with PT for walking. Her wound was bandaged with slight discharge. PT reports that she was only able to walk about 8 ft as of yesterday. We discussed the patient's current disposition with both her nurse and PT/OT, as well as reviewed her chart. Vitals/I&O Vitals/I&O: Vital Signs Date Time Temp Pulse Resp B/P (MAP) Pulse Ox O2 Delivery O2 Flow Rate FiO2 01/09/21 09:06 Room Air 01/09/21 07:00 98.7 69 18 161/80 (107) 93 98.7 Physical Exam General: Alert, Oriented X3, Cooperative Heart: Regular rate, No murmurs Lungs: Clear Abdomen: Normal bowel sounds Extremities: No clubbing, Other (Left foot with clean dry intact dressing and a cast) Skin: No rashes Review of Systems Review of Systems: No vomiting No rashes Assessment and Plan Assessmemt and Plan Assessment: 1. Left first metatarsophalangeal fusion 2. Anxiety 3. Cataract surgery 4. Multiple podiatry surgeries 5. hypothyroidism 6. Depression 7. chronic pain 8. arthritis 9. possible early cognitive issues 10. chronic pain 11. constipation 12. GERD 13. Incontinence 14. Bladder spasms 15. chronic anticoagulation 16. insomnia 17. hyperlipidemia 18. muscle spasms 19. polypharmacy 20. gastroparesis 21. migraines 22. hepatitis C Plan: 1. Continue PT/OT 2. Continue DVT Prophylaxis 3. Continue wound care 4. Full code 5. Home medications Comment Review of Relevant I have reviewed the following items néstor (where applicable) has been applied. Justifications for Admission Other Justification MISA HERNANDEZ III DO Jan 09, 2021 10:28
[2021-01-09 11:00] VITALS: BP 156/63
[2021-01-09 15:00] VITALS: BP 171/80
[2021-01-09 19:10] VITALS: BP 151/77
[2021-01-09] MEDS: risperiDONE 0.25 MG TABLET. PO SCH (20:18)
[2021-01-09 23:28] VITALS: BP 164/79
[2021-01-10 03:26] VITALS: BP 118/64
[2021-01-10] MEDS: LEVOTHYROXINE 50 MCG TABLET PO SCH (05:55)
[2021-01-10] MEDS: ACETAMINOPHEN 325 MG TABLET. PO SCH ×4 (06:00→23:57)
[2021-01-10 07:00] VITALS: BP 111/67
[2021-01-10] MEDS: OXYBUTYNIN CHLORIDE 5 MG TABLET PO SCH ×3 (09:05→20:44)
[2021-01-10] MEDS: ASPIRIN 325 MG TABLET PO SCH (09:05)
[2021-01-10] MEDS: PANTOPRAZOLE 40 MG TABLET.DR. PO SCH (09:05)
[2021-01-10] MEDS: GABAPENTIN 100 MG CAPSULE. PO SCH ×3 (09:05→20:44)
[2021-01-10] MEDS: CALCIUM CARBONATE 500 MG TABLET PO SCH (09:05)
[2021-01-10] MEDS: buPROPion 100 MG TABLET. PO SCH (09:05)
[2021-01-10] MEDS: MULTIVITAMIN with MINERAL TABLET. PO SCH (09:05)
[2021-01-10 11:00] VITALS: BP 154/72
--- NOTE | 2021-01-10 11:48 | PDOC ---
[facility] PROGRESS NOTE Date of Service DOS: DATE: 01/10/21 TIME: 11:45 Chief Complaint Chief Complaint Left first metatarsophalangeal fusion Anxiety Cataract surgery Multiple podiatry surgeries hypothyroidism Depression chronic pain arthritis possible early cognitive issues chronic pain constipation GERD Incontinence Bladder spasms chronic anticoagulation insomnia hyperlipidemia muscle spasms polypharmacy gastroparesis migraines hepatitis C History of Present Illness History of Present Illness 01/08/2021 Patient seen and examined exam discussed with RN Chart reviewed 01/09: Mrs. Mcqueen was seen and evaluated in her room this morning. She was seated at the edge of her bed, working with PT for walking. Her wound was bandaged with slight discharge. PT reports that she was only able to walk about 8 ft as of yesterday. We discussed the patient's current disposition with both her nurse and PT/OT, as well as reviewed her chart. 01/10: Mrs. Mcqueen was seen and evaluated in her room at bedside this morning. She was sitting up on the edge of her bed. This morning, she was able to eat her breakfast, but did experience diarrhea. She states she is feeling better now. We discussed the patient's current disposition with her nurse and reviewed her chart. Mrs. Mcqueen's wound appeared clean, intact and dry. Vitals/I&O Vitals/I&O: Vital Signs Date Time Temp Pulse Resp B/P (MAP) Pulse Ox O2 Delivery O2 Flow Rate FiO2 01/10/21 08:13 Room Air 01/10/21 07:00 98.6 49 18 111/67 (82) 98 98.6 I & O 01/09/21 01/09/21 01/10/21 15:00 23:00 07:00 Intake Total 400 ml 300 ml Output Total 300 ml Balance 400 ml 300 ml -300 ml Physical Exam General: Alert, Oriented X3, Cooperative Heart: Regular rate, No murmurs Lungs: Clear Abdomen: Normal bowel sounds Extremities: No clubbing, Other (Left foot with clean dry intact dressing and a cast) Skin: No rashes Review of Systems Review of Systems: No headache. No rashes. Assessment and Plan Assessmemt and Plan Assessment: 1. Left first metatarsophalangeal fusion 2. Anxiety 3. Cataract surgery 4. Multiple podiatry surgeries 5. hypothyroidism 6. Depression 7. chronic pain 8. arthritis 9. possible early cognitive issues 10. chronic pain 11. constipation 12. GERD 13. Incontinence 14. Bladder spasms 15. chronic anticoagulation 16. insomnia 17. hyperlipidemia 18. muscle spasms 19. polypharmacy 20. gastroparesis 21. migraines 22. hepatitis C Plan: 1. Continue DVT Prophylaxis 2. Continue PT/OT (Standing/Walking) 3. Continue wound care 4. Home medications 5. Full code. Comment Review of Relevant I have reviewed the following items néstor (where applicable) has been applied. Justifications for Admission Other Justification MISA HERNANDEZ III DO Jan 10, 2021 11:48
[2021-01-10 15:00] VITALS: BP 132/63
[2021-01-10] MEDS: HYDROcodone/APAP 5/325MG 1 TAB TABLET PO PRN ×2 (16:42→23:54)
[2021-01-10 19:00] VITALS: BP 145/77
[2021-01-10] MEDS: risperiDONE 0.25 MG TABLET. PO SCH (20:44)
[2021-01-10 23:00] VITALS: BP 164/77
[2021-01-11 03:00] VITALS: BP 114/65
[2021-01-11] MEDS: LEVOTHYROXINE 50 MCG TABLET PO SCH (06:44)
[2021-01-11] MEDS: ACETAMINOPHEN 325 MG TABLET. PO SCH ×2 (06:44→11:55)
[2021-01-11] MEDS: PANTOPRAZOLE 40 MG TABLET.DR. PO SCH (06:44)
[2021-01-11 07:00] VITALS: BP 121/75
[2021-01-11] MEDS: CALCIUM CARBONATE 500 MG TABLET PO SCH (08:30)
[2021-01-11] MEDS: MULTIVITAMIN with MINERAL TABLET. PO SCH (08:30)
[2021-01-11] MEDS: buPROPion 100 MG TABLET. PO SCH (08:30)
[2021-01-11] MEDS: GABAPENTIN 100 MG CAPSULE. PO SCH ×2 (08:30→14:01)
[2021-01-11] MEDS: OXYBUTYNIN CHLORIDE 5 MG TABLET PO SCH ×2 (08:31→14:01)
[2021-01-11] MEDS: HYDROcodone/APAP 5/325MG 1 TAB TABLET PO PRN (08:31)
[2021-01-11] MEDS: ASPIRIN 325 MG TABLET PO SCH (08:31)
--- NOTE | 2021-01-11 09:15 | PDOC ---
[facility] PROGRESS NOTE Date of Service DOS: DATE: 01/11/21 TIME: 09:13 Chief Complaint Chief Complaint Left first metatarsophalangeal fusion Anxiety Cataract surgery Multiple podiatry surgeries hypothyroidism Depression chronic pain arthritis possible early cognitive issues chronic pain constipation GERD Incontinence Bladder spasms chronic anticoagulation insomnia hyperlipidemia muscle spasms polypharmacy gastroparesis migraines hepatitis C History of Present Illness History of Present Illness 01/08/2021 Patient seen and examined exam discussed with RN Chart reviewed 01/09: Mrs. Mcqueen was seen and evaluated in her room this morning. She was seated at the edge of her bed, working with PT for walking. Her wound was bandaged with slight discharge. PT reports that she was only able to walk about 8 ft as of yesterday. We discussed the patient's current disposition with both her nurse and PT/OT, as well as reviewed her chart. 01/10: Mrs. Mcqueen was seen and evaluated in her room at bedside this morning. She was sitting up on the edge of her bed. This morning, she was able to eat her breakfast, but did experience diarrhea. She states she is feeling better now. We discussed the patient's current disposition with her nurse and reviewed her chart. Mrs. Mcqueen's wound appeared clean, intact and dry. 01/11: Afebrile, currently breathing on room air. No acute events overnight. She will discharge to SNU today. Greater than 30 minutes were spent managing the discharge of this patient. Vitals/I&O Vitals/I&O: Vital Signs Date Time Temp Pulse Resp B/P (MAP) Pulse Ox O2 Delivery O2 Flow Rate FiO2 01/11/21 07:00 97.9 55 16 121/75 (90) 93 Room Air 97.9 Physical Exam General: Alert, Oriented X3, Cooperative Heart: Regular rate, No murmurs Lungs: Clear Abdomen: Normal bowel sounds Extremities: No clubbing, Other (Left foot with clean dry intact dressing and a cast) Skin: No rashes Comment Review of Relevant I have reviewed the following items néstor (where applicable) has been applied. Justifications for Admission Other Justification PARTH PETERSEN MD Jan 11, 2021 09:15
--- NOTE | 2021-01-11 09:22 | PDOC3 ---
Discharge Summary Visit Information Date of Admission: Jan 06, 2021 Date of Discharge: Jan 11, 2021 Brief Hospital Course Allergies Allergies Coded Allergies Type Severity Reaction Last Updated Verified prochlorperazine edisylate Allergy Severe Anaphylaxis 01/06/21 Yes prochlorperazine maleate Allergy Severe Anaphylaxis 01/06/21 Yes adhesive Allergy Intermediate RASH AND SKIN COMES OFF 01/06/21 Yes ciprofloxacin Adverse Reaction Intermediate hallucinations 01/06/21 Yes ciprofloxacin HCl Adverse Reaction Intermediate hallucinations 01/06/21 Yes clindamycin Adverse Reaction Intermediate extreme heartburn 01/06/21 Yes oxycodone Adverse Reaction Intermediate 01/06/21 Yes Vital Signs Vital Signs Date Time Temp Pulse Resp B/P (MAP) Pulse Ox O2 Delivery O2 Flow Rate FiO2 01/11/21 07:00 97.9 55 16 121/75 (90) 93 Room Air 97.9 Brief Hospital Course Ms. Mcqueen is a 75 old female who presented with left hallux rigidus, arthritis, bunion deformity. She had left first MTPJ arthrodesis. Work with physical therapy and recommended SNU. She was discharged to [facility]. Discharge Information Condition at Discharge: Improved Disposition/Orders: D/C to Another Facility Scheduled Aspirin (Aspirin) 325 Mg Tablet, 325 MG PO DAILY for anticoag, (Reported) Entered as Reported by: NIKKI WARD on 05/11/18 1145 Last Taken: Unknown Dose on 01/01/21 Last Action: Continued on 01/06/21 1516 by ABBEY GONZALEZ RN Bupropion Hcl (Wellbutrin) 100 Mg Tablet, 100 MG PO DAILY for DEPRESSION, (Reported) Entered as Reported by: ROSAURA FREDERICK on 06/27/13 210 Last Taken: Unknown Dose on 01/05/21 Last Action: Continued on 01/06/21 1516 by ABBEY GONZALEZ RN Calcium Carbonate (Calcium) 500 Mg Tab.chew, 600 MG PO DAILY for supplement, (Reported) Entered as Reported by: Marlen Baldwin on 01/01/21 1615 Last Taken: Unknown Dose on 01/05/21 Last Action: Converted on 01/06/21 1516 by ABBEY GONZALEZ RN Cholecalciferol (Vitamin D3) (Vitamin D3) 1,000 Unit Tablet, 50,000 UNIT IM WEEKLY for supplement, (Reported) Entered as Reported by: BATSHEVA GUZMAN on 12/23/17 005 Last Taken: Unknown Dose on 01/05/21 Last Action: Continued on 01/06/211515 by ABBEY GONZALEZ RN Gabapentin (Gabapentin ) 300 Mg Capsule, 300 MG PO HS for NEUROGENIC PAIN, (Reported) Entered as Reported by: ANGELIKA HERRERA on 10/23/20 1227 Last Taken: Unknown Dose on 01/05/21 Last Action: Continued on 01/06/211515 by ABBEY GONZALEZ RN Levothyroxine Sodium (Levothyroxine Sodium) 50 Mcg Tablet, 1 TAB PO DAILY, #30 Ref 5 (Reported) Entered as Reported by: HARRY RAMIREZ on 12/21/16 0711 Last Taken: Unknown Dose on 01/05/21 Last Action: Continued on 01/06/211515 by ABBEY GONZALEZ RN Melatonin (Melatonin) 3 Mg Tablet, 10 MG PO QHS, (Reported) Entered as Reported by: KIERSTEN HOPKINS on 10/30/17 1406 Last Taken: Unknown Dose on 01/05/21 Last Action: Converted on 01/06/211515 by ABBEY GONZALEZ RN Methenamine Hippurate (Hiprex) 1 Gm Tablet, 1 GM PO DAILY for unk, (Reported) Entered as Reported by: ZACH PAVON on 01/16/19 1628 Last Taken: Unknown Dose on 01/05/21 Last Action: Converted on 01/06/211515 by ABBEY GONZALEZ RN Multivitamin (Multivitamins) 1 Each Tablet, 1 TAB PO DAILY, #90 Ref 3 (Reported) Entered as Reported by: BATSHEVA GUZMAN on 12/23/1750 Last Taken: Unknown Dose on 01/05/21 Last Action: Converted on 01/06/211515 by ABBEY GONZALEZ RN Ondansetron (Zofran Odt) 4 Mg Tab.rapdis, 1 TAB SL Q8HRS, #10 Prescribed by: ELIZABETH MARRERO on 01/20/18 1807 Last Taken: Unknown Dose on 01/04/21 Last Action: Continued on 01/06/211515 by ABBEY GONZALEZ RN Pantoprazole Sodium (Pantoprazole Sodium ) 40 Mg Tablet.dr, 40 MG PO DAILYAC for GERD, (Reported) Entered as Reported by: ZACH PAVON on 09/25/19 1430 Last Taken: Unknown Dose on 01/05/21 Last Action: Continued on 01/06/211515 by ABBEY GONZALEZ RN Risperidone (Risperidone) 0.5 Mg Tablet, 0.25 MG PO DAILY for psychosis, (Reported) Entered as Reported by: Marlen Jacqueline Baldwin on 01/01/21 1615 Last Taken: Unknown Dose on 01/05/21 Last Action: Converted on 01/06/211515 by ABBEY GONZALEZ RN Solifenacin Succinate (Vesicare) 10 Mg Tablet, 1 TAB PO DAILY for overactive bladder for 30 Days, #30 Ref 0 (Reported) Entered as Reported by: ANGELIKA HERRERA on 10/23/20 1227 Last Taken: Unknown Dose on 01/05/21 Last Action: Converted on 01/06/211515 by ABBEY GONZALEZ RN [domperidone] , 10 MG PO TID, (Reported) Entered as Reported by: BATSHEVA GUZMAN on 12/23/17 005 Last Taken: Unknown Dose on 01/04/21 Last Action: Converted on 01/06/211515 by ABBEY GONZALEZ RN Scheduled PRN Alprazolam (Xanax) 0.5 Mg Tablet, 0.5 MG PO BID PRN for ANXIETY / AGITATION, Ref 0 (Reported) Entered as Reported by: BATSHEVA GUZMAN on 12/23/17 005 Last Taken: Unknown Dose on 01/05/21 Last Action: Continued on 01/06/211515 by ABBEY GONZALEZ RN Hydrocodone Bit/Acetaminophen (Hydrocodone-Apap 5-325 ) 1 Tab Tablet, 1 TAB PO PRN Q6HRS PRN for PAIN, Ref 0 (Reported) Entered as Reported by: NIKKI WARD on 05/11/18 1144 Last Taken: Unknown Dose on 01/05/21 Last Action: Last Taken Edited on 01/06/21630 by ILDA BRAND Tramadol Hcl (Tramadol Hcl) 50 Mg Tablet, 50 MG PO DAILY PRN for PAIN, Ref 0 (Reported) Entered as Reported by: NIKKI WARD on 05/11/18 1144 Last Taken: Unknown Dose on 01/05/21 Last Action: Last Taken Edited on 01/06/21630 by ILDA BRAND Justicifation of Admission Dx: Justifications for Admission: Justification of Admission Dx: Yes PARTH PETERSEN MD Jan 11, 2021 09:22
--- NOTE | 2021-01-11 09:25 | SNU/HH DC ---
DISCHARGE ORDERS DISCHARGE INFORMATION: DISCHARGE DATE: Jan 11, 2021 CONDITION ON DISCHARGE: Stable CODE STATUS: Code Status: Full INTERMEDIATE: SNF STAY <30 DAYS: Yes POST DISCHARGE ORDERS: ACTIVITY ORDERS: Activity as tolerated, Avoid exertion WEIGHT BEARING STATUS: Full weight bearing BATHING ORDERS: Shower-keep dressing dry, No Tub Bath until see DIET AFTER DISCHARGE: Regular WOUND/INCISION CARE: Ice to area for comfort, Keep wound/cast CDI, Keep wound elevated, Do not change dressing TREATMENT/EQUIPMENT ORDERS: ADAPTIVE EQUIPMENT NEEDED: None, Front wheeled walker Physical Therapy For: Evalulation/Treatment Occupational Therapy For: Evaluation/Treatment DISCHARGE MEDICATIONS: Home Meds Active Scripts Ondansetron (ZOFRAN ODT) 4 Mg Tab.rapdis, 1 TAB SL Q8HRS, #10 TAB Prov:DIVYA HERNANDEZ 01/20/18 Reported Medications Risperidone (RISPERIDONE) 0.5 Mg Tablet, 0.25 MG PO DAILY for psychosis, TAB 01/01/21 Calcium Carbonate (CALCIUM) 500 Mg Tab.chew, 600 MG PO DAILY for supplement, TAB.CHEW 01/01/21 Solifenacin Succinate (VESICARE) 10 Mg Tablet, 1 TAB PO DAILY for overactive bladder for 30 Days, #30 TAB 0 Refills 10/23/20 Gabapentin (GABAPENTIN ) 300 Mg Capsule, 300 MG PO HS for NEUROGENIC PAIN, CAP 10/23/20 Pantoprazole Sodium (PANTOPRAZOLE SODIUM ) 40 Mg Tablet.dr, 40 MG PO DAILYAC for GERD, TAB 09/25/19 Methenamine Hippurate (HIPREX) 1 Gm Tablet, 1 GM PO DAILY for unk, TAB 01/16/19 Aspirin (ASPIRIN) 325 Mg Tablet, 325 MG PO DAILY for anticoag, TAB 05/11/18 Tramadol Hcl (TRAMADOL HCL) 50 Mg Tablet, 50 MG PO DAILY PRN for PAIN, TAB 0 Refills 05/11/18 Hydrocodone Bit/Acetaminophen (HYDROCODONE-APAP 5-325 ) 1 Tab Tablet, 1 TAB PO PRN Q6HRS PRN for PAIN, TAB 0 Refills 05/11/18 [domperidone] No Conflict Check, 10 MG PO TID 12/23/17 Cholecalciferol (Vitamin D3) (VITAMIN D3) 1,000 Unit Tablet, 71744 UNIT IM WEEKLY for supplement, TAB 12/23/17 Multivitamin (MULTIVITAMINS) 1 Each Tablet, 1 TAB PO DAILY, #90 TAB 3 Refills 12/23/17 Alprazolam (XANAX) 0.5 Mg Tablet, 0.5 MG PO BID PRN for ANXIETY / AGITATION, TAB 0 Refills 12/23/17 Melatonin (MELATONIN) 3 Mg Tablet, 10 MG PO QHS, TAB 10/30/17 Levothyroxine Sodium (LEVOTHYROXINE SODIUM) 50 Mcg Tablet, 1 TAB PO DAILY, #30 TAB 5 Refills 12/21/16 Bupropion Hcl (WELLBUTRIN) 100 Mg Tablet, 100 MG PO DAILY for DEPRESSION 06/27/13 PARTH PETERSEN MD Jan 11, 2021 09:24
[2021-01-11 11:00] VITALS: BP 132/86
[2021-01-11] MEDS ORDERED: ALPR0.5T6 PO (12:20)
[2021-01-11] MEDS ORDERED: HYDR-2761 PO (12:20)
--- NOTE | 2021-01-11 14:30 | NUR ---
Patient transferred to [facility] via wheelchair by transportation service. Left lower extremity splint is clean, dry, and intact.
[2021-01-13] MEDS ORDERED: ERGOCALCIFEROL (VITAMIN D2) 50,000 UNIT CAPSULE. PO SCH (09:00)
== END 2021-01-11 14:30 | DRG 505 ==
LOC: SURG 06:01 → 4 NORTH 15:45
PROVIDERS: ADMIT Podiatrist; ATTEND Podiatrist
PROC: 0SGN04Z Fusion of Left Metatarsal-Phalangeal Joint with Internal Fixation Device, Open Approach (ICD-10-PCS; principal; 2021-01-06 07:30)
DX: M20.5X2 Other deformities of toe(s) (acquired), left foot (principal); M20.22 Hallux rigidus, left foot; F32.9 Major depressive disorder, single episode, unspecified; E03.9 Hypothyroidism, unspecified; B19.20 Unspecified viral hepatitis C without hepatic coma; M21.612 Bunion of left foot; F41.9 Anxiety disorder, unspecified; G89.29 Other chronic pain; K21.9 Gastro-esophageal reflux disease without esophagitis; E78.5 Hyperlipidemia, unspecified; G43.909 Migraine, unspecified, not intractable, without status migrainosus; R26.2 Difficulty in walking, not elsewhere classified; K59.00 Constipation, unspecified; R32 Unspecified urinary incontinence; M62.838 Other muscle spasm; K31.84 Gastroparesis; Z79.899 Other long term (current) drug therapy; Z79.82 Long term (current) use of aspirin; Z86.73 Personal history of transient ischemic attack (TIA), and cerebral infarction without residual deficits; Z98.41 Cataract extraction status, right eye; Z98.42 Cataract extraction status, left eye; Z79.01 Long term (current) use of anticoagulants; Z82.49 Family history of ischemic heart disease and other diseases of the circulatory system
CPT/HCPCS: 73630; 87426; A4209; A4657; A4930; A6223; A6253; A6402; A6449; A6457; C1713; J0690; J1100; J1170; J1885; J2250; J2270; J2370; J2405; J2704; J3010; J3490; U0003; U0005; 97110-GP; 97116-GP; 97530-GP; 97535-GO; G0378

== ENCOUNTER → 2021-01-11 | Outpatient (CLI) | payer MEDICARE ==
[~2021-01-11] MED LIST changes: +ALPR0.5T6 PO; +BUPIVACAINE MPF 0.75% 30 ML VIAL. ONE; -IV RINGERS,LACTATED 1000ML 1,000 ML IV SCH; +LIDOCAINE/PRILOCAINE TOPICAL CREAM 5GM TUBE. TP ONE; -MORPHINE SULFATE 2 MG/ML INJ. IVP PRN; -PROCHLORPERAZINE 10 MG/2 ML VIAL. IVP PRN; +cloNIDine PF 5,000 MCG/10 ML VIAL EP ONE; -fentaNYL PF VIAL 100 MCG/2 ML VIAL IVP PRN; +fentaNYL PF VIAL 250 MCG/5 ML VIAL ONE
[2021-01-11 11:00] VITALS: BP 132/86
--- NOTE | 2021-01-11 15:27 | PDOC ---
Progress Note - Pain Clinic Date of Service: DOS: DATE: 01/11/21 TIME: 15:21 Diagnosis: Dx: Cervical radiculopathy with cervical postlaminectomy syndrome Lumbar radiculopathy lumbar degenerative disc disease and postlaminectomy syndrome Right shoulder joint pain with osteoarthritis Bilateral knee joint pain with osteoarthritis Intrathecal pump therapy and spinal cord stimulator therapy History or Present Illness: HPI: 75-year-old female returns for follow-up post for pump refill and reprogramming today. Patient just been discharged from the hospital after surgery on her left foot with ORIF. Patient reports she is doing fairly well is going to rehab now it is time for the pump to be refilled and she reports that she is doing fairly well with the medication in the pump she does report some new pain in the left lower extremity which is radicular in quality and description usually worse at night or with standing. Patient reports that it Is about twice a week and occurrence is not present at all times. Patient reports otherwise doing fairly well describes the pain in the back and neck is aching and sharp also the pain in the left leg is shooting and severe when it does occur and can awaken her from sleep at night. Patient reports no side effects with her medications currently is keeping her spinal cord stimulator charged with good results as well. Physical Exam: VS: Blood pressure is 140/76 pulse 81 respirations are 18 temperature is 98.3 F height is 5 feet 1 inches, weight is 195 pounds. PE: PHYSICAL EXAMINATION: GENERAL: The patient is awake, alert, oriented, appropriate, very pleasant in demeanor, patient companied by her spouse HEENT: Shows normocephalic, atraumatic. Extraocular movements are intact and symmetrical. Oral cavity: Mucous membranes moist and pink. NECK: Shows anterior throat supple without palpable lymphadenopathy noted. Swa llow reflex symmetrical. CHEST: Shows normal on inspection. Breath sounds are clear bilaterally, distant but no rales or rhonchi. HEART: Shows S1, S2 clear. No murmurs auscultated. ABDOMEN: Soft, nontender, nondistended. No palpable organomegaly is noted, obese. Palpable intrathecal pump is noted in the left lower quadrant, with moderate mobility but nontender. No rebound or guarding demonstrated. BACK: Shows spine grossly in the midline. Normal-appearing cervical lordotic curvature. There is slightly increased thoracic kyphosis, some minor flattening of the lumbar lordotic curvature. Lumbar paraspinous muscles show symmetrical on inspection, on palpation shows some moderate tenderness diffusely throughout the upper, middle and lower distribution of the paraspinous muscles, but without specific trigger points, without radiation of pain. The patient has good rotational motion of the lumbar spine, both laterally as well as extension and flexion without significant difficulty. No tenderness over the spinous processes, sacrum or sacroiliac regions. EXTREMITIES: Lower extremities show deep tendon reflexes 1+ in the patellar and tendo calcaneus tendons. Motor exam is 4 on a scale of 5 with right dorsiflexion, extension, quadriceps and hamstring flexion and 4/5 on the left. Peripheral pulses are 1+ posterior tibial. No peripheral edema is noted bilaterally. Lower extremities are warm and dry to touch, patient with bandage and casted left ankle and foot. SKIN: Shows warm and dry, good turgor. No edema. No sores, rashes or bruising throughout. Procedure: Procedure: Options discussed with the patient. Patient's old chart was reviewed as her current medication regimen updated current review of systems updated today as well. We will proceed with intrathecal pump refill and reprogramming as well as PTM reprogramming with fluoroscopic guidance as patient's habitus and obesity require fluoroscopic guidance to access the pump. Patient will return to the clinic in approximate 4 weeks as scheduled, refill date for the pump at this time is April 01, 2021. Medication Injected: Med Injected: Under sterile prep and drape patient's abdomen was prepped and using C-arm fluoroscopic guidance, the intrathecal pump was visualized, using a 22-gauge noncutting [employer] brand needle the pump was entered with fluoroscopic guidance without difficulty. Aspiration showed removal of 4cc of old medication which was discarded. 40 cc of new medication containing bupivacaine clonidine and fentanyl was then replaced. Needle was withdrawn and sterile bandage was applied;pump was then reprogrammed for volume as well as alarm settings and PTM reprogrammed as well. Patient tolerated procedure well had no complications. Condition at Discharge: Condition at Discharge: Condition at discharge stable, patient already the procedure well and had no complications. CHITRA EPPERSON MD Jan 11, 2021 15:27
--- NOTE | 2021-01-11 15:28 | PDOC4 ---
Procedure Note: ICD 10 Code: ICD 10 Code: M54.12 M 96.1 M54.16 M51.36 Z 79.899 Procedure Note: Patient was consented for intrathecal pump refill and reprogramming with fluoroscopic guidance secondary to patient's body habitus. Risks discussed including but not limited to bleeding infection possibly intravascular injection sequelae extravasation of intrathecal contents including resuscitative measures if necessary as well as poor results regarding pain control. Patient understands wishes to proceed. Under sterile prep and drape patient's abdomen was prepped and using C-arm fluoroscopic guidance, the intrathecal pump was visualized, using a 22-gauge noncutting [employer] brand needle the pump was entered with fluoroscopic guidance without difficulty. Aspiration showed removal of 4cc of old medication which was discarded. 40 cc of new medication containing bupivacaine clonidine and fentanyl was then replaced. Needle was withdrawn and sterile bandage was applied;pump was then reprogrammed for volume as well as alarm settings and PTM reprogrammed as well. Patient tolerated procedure well had no complications. CHITRA EPPERSON MD Jan 11, 2021 15:28
== END | disposition home or self-care (01) ==
LOC: PNCL 14:40
PROVIDERS: ATTEND Anesthesiology
DX: M51.16 Intervertebral disc disorders with radiculopathy, lumbar region (principal); M96.1 Postlaminectomy syndrome, not elsewhere classified; M17.0 Bilateral primary osteoarthritis of knee; M19.011 Primary osteoarthritis, right shoulder; E78.00 Pure hypercholesterolemia, unspecified; J44.9 Chronic obstructive pulmonary disease, unspecified; G47.30 Sleep apnea, unspecified; E66.9 Obesity, unspecified; K21.9 Gastro-esophageal reflux disease without esophagitis; E03.9 Hypothyroidism, unspecified; F41.9 Anxiety disorder, unspecified; F32.9 Major depressive disorder, single episode, unspecified; Z86.73 Personal history of transient ischemic attack (TIA), and cerebral infarction without residual deficits; Z85.828 Personal history of other malignant neoplasm of skin; Z87.440 Personal history of urinary (tract) infections; Z90.710 Acquired absence of both cervix and uterus; Z98.890 Other specified postprocedural states; Z79.899 Other long term (current) drug therapy; Z79.82 Long term (current) use of aspirin; Z88.1 Allergy status to other antibiotic agents; Z88.8 Allergy status to other drugs, medicaments and biological substances
CPT/HCPCS: 62370; 77002; J0735; J3010; J3490

== ENCOUNTER → 2021-03-15 | Outpatient (CLI) | payer MEDICARE ==
[~2021-03-15] MED LIST changes: -BUPIVACAINE MPF 0.75% 30 ML VIAL. ONE; +CYCL10TA19 PO; -CYCL10TA2 PO; +IOHEXOL 180 MG/ML 10 ML VIAL. ONE; -LIDOCAINE/PRILOCAINE TOPICAL CREAM 5GM TUBE. TP ONE; -cloNIDine PF 5,000 MCG/10 ML VIAL EP ONE; -fentaNYL PF VIAL 250 MCG/5 ML VIAL ONE; +methylPREDNISolone ACETATE 40 MG/ML VIAL. ONE; +methylPREDNISolone ACETATE 80 MG/ML VIAL. ONE
--- NOTE | 2021-03-15 13:18 | PDOC ---
Progress Note - Pain Clinic Date of Service: DOS: DATE: 03/15/21 TIME: 13:15 Diagnosis: Dx: Lumbar radiculopathy with lumbar degenerative disc disease Cervical radiculopathy with cervical postlaminectomy syndrome Intrathecal therapy Spinal cord stimulator therapy Bilateral knee joint pain with osteoarthritis Right shoulder joint pain with osteoarthritis History or Present Illness: HPI: 5-year-old female returns for follow-up last seen January 11, 2021 for intrathecal pump refill patient ports been doing fairly well but over the past week to 2 weeks and increased pain in the low back rating the right lower extremity posterior gluteus posterior thigh posterior calf to the ankle and foot was becoming much more difficult even put a small amount of weightbearing on it some difficulty getting up and down changing positions walking is becoming unbearable patient reports her pain is a 10 on scale 10 is worst least and average over the past week and is a 10 today. Patient reported sharp and dull alternating the back shooting in the leg stabbing can be constant and severe patient reports again worse with weightbearing standing walking better with sitting or laying down but is been waking her from sleep about every 3 hours. Patient reports no bowel or bladder incontinence no loss of motor function with significant fatigability and significant pain radiating to the level of the foot on the right side. Physical Exam: VS: Blood pressure is 136/81 pulse 65 respirations 18 temperature 98.5 Fahrenheit height is 5 feet 2 inches weight is 198 pounds PE: PHYSICAL EXAMINATION: GENERAL: The patient is awake, alert, oriented, appropriate, very pleasant in demeanor, patient accompanied by her HEENT: Shows normocephalic, atraumatic. Extraocular movements are intact and symmetrical. Patient wearing eyeglasses. Oral cavity: Mucous membranes moist and pink. NECK: Shows anterior throat supple without palpable lymphadenopathy noted. Swallow reflex symmetrical. CHEST: Shows normal on inspection. Breath sounds are clear bilaterally, distant but no rales or rhonchi. HEART: Shows S1, S2 clear. No murmurs auscultated. ABDOMEN: Soft, nontender, nondistended, obese with easily palpable intrathecal pump in the left lower quadrant. No palpable organomegaly is noted. No rebound or guarding demonstrated. BACK: Shows spine grossly in the midline. Normal-appearing cervical lordotic curvature. There is slightly increased thoracic kyphosis, some minor flattening of the lumbar lordotic curvature. Lumbar paraspinous muscles show symmetrical on inspection, on palpation shows some moderate tenderness diffusely throughout the upper, middle and lower distribution of the paraspinous muscles without specific trigger points, without radiation of pain. The patient has good rotational motion of the lumbar spine, both laterally as well as extension and flexion without significant difficulty. No tenderness over the spinous processes, sacrum or sacroiliac regions. EXTREMITIES: Lower extremities show deep tendon reflexes 1+ in the patellar and tendo calcaneus tendons. Motor exam is 4 on a scale of 5 with right dorsiflexion, extension, quadriceps and hamstring flexion and 4/5 on the left. Peripheral pulses are 1+ posterior tibial. No peripheral edema is noted bilaterally. Positive straight leg raise at about 30 degrees on the right side decreased with knee flexion but not relieved. Left side is negative. Lower extremities are warm and dry. SKIN: Shows warm and dry, good turgor. No edema. No sores, rashes or bruising throughout. Procedure: Procedure: Options discussed with patient. Patient chart was reviewed as her current medication regimen updated current review of systems updated today as well. We will proceed with a lumbar epidural steroid injection today with fluoroscopic guidance. Risks were discussed including but not limited to: Bleeding, infection, possibility of epidural hematoma and subsequent neurological compromise, dural puncture, headaches, spinal cord and/or nerve damage, side effects of steroid medication, and poor results regarding pain control. Patient understands and wished to proceed. Patient will return to clinic in approximate 4 weeks as scheduled, was counseled as to return appointment, activity level, and side effect to be aware of. Medication Injected: Med Injected: Procedure is lumbar epidural steroid injection under local anesthetic using sterile prep and drape at the L5-S1 level using C-arm fluoroscopic guidance in both AP and lateral views medications injected is 120 mg Depo-Medrol +10mL preservative-free normal saline and 2 mL contrast- condition at discharge is stable patient tolerated procedure well had no complications. Condition at Discharge: Condition at Discharge: Condition at discharge stable, patient tolerated procedure well and had no complications. CHITRA EPPERSON MD Mar 15, 2021 13:18
--- NOTE | 2021-03-15 13:19 | PDOC4 ---
Procedure Note: ICD 10 Code: ICD 10 Code: M54.17 M five 1.87 M4 8.07 Procedure Note: Patient was consented for lumbar epidural steroid injection with fluoroscopic guidance. Risks were discussed including but not limited to: Bleeding, infection, possibility of epidural hematoma and subsequent neurological compromise, dural puncture, headaches, spinal cord and/or nerve damage, side effects of steroid medication, and poor results regarding pain control. Patient understands and wished to proceed. Procedure is lumbar epidural steroid injection under local anesthetic using sterile prep and drape at the L5-S1 level using C-arm fluoroscopic guidance in both AP and lateral views medications injected is 120 mg Depo-Medrol +10mL preservative-free normal saline and 2 mL contrast- condition at discharge is stable patient tolerated procedure well had no complications. CHITRA EPPERSON MD Mar 15, 2021 13:19
== END | disposition home or self-care (01) ==
LOC: PNCL 12:04
PROVIDERS: ATTEND Anesthesiology
DX: M51.16 Intervertebral disc disorders with radiculopathy, lumbar region (principal); M96.1 Postlaminectomy syndrome, not elsewhere classified; M17.0 Bilateral primary osteoarthritis of knee; M19.011 Primary osteoarthritis, right shoulder; E78.00 Pure hypercholesterolemia, unspecified; J44.9 Chronic obstructive pulmonary disease, unspecified; K21.9 Gastro-esophageal reflux disease without esophagitis; E66.9 Obesity, unspecified; G47.30 Sleep apnea, unspecified; E03.9 Hypothyroidism, unspecified; F41.9 Anxiety disorder, unspecified; F32.9 Major depressive disorder, single episode, unspecified; Z85.828 Personal history of other malignant neoplasm of skin; Z87.440 Personal history of urinary (tract) infections; Z90.710 Acquired absence of both cervix and uterus; Z98.890 Other specified postprocedural states; Z86.73 Personal history of transient ischemic attack (TIA), and cerebral infarction without residual deficits; Z79.82 Long term (current) use of aspirin; Z79.899 Other long term (current) drug therapy; Z88.1 Allergy status to other antibiotic agents; Z88.8 Allergy status to other drugs, medicaments and biological substances
CPT/HCPCS: 62323; J1030; J1040; Q9965

== ENCOUNTER → 2021-04-01 | Outpatient (CLI) | payer MEDICARE ==
[~2021-04-01] MED LIST changes: +BUPIVACAINE MPF 0.75% 30 ML VIAL. ONE; -IOHEXOL 180 MG/ML 10 ML VIAL. ONE; +cloNIDine PF 5,000 MCG/10 ML VIAL EP ONE; +fentaNYL PF VIAL 250 MCG/5 ML VIAL ONE; -methylPREDNISolone ACETATE 40 MG/ML VIAL. ONE; -methylPREDNISolone ACETATE 80 MG/ML VIAL. ONE
--- NOTE | 2021-04-01 12:25 | PDOC ---
Progress Note - Pain Clinic Date of Service: DOS: DATE: 04/01/21 TIME: 12:20 Diagnosis: Dx: Cervical radiculopathy with cervical postlaminectomy syndrome Lumbar radiculopathy lumbar degenerative disc disease with intrathecal pump and spinal cord stimulation system Bilateral knee joint pain with osteoarthritis Right shoulder joint pain with osteoarthritis History or Present Illness: HPI: 75-year-old female returns for follow-up status post intrathecal pump therapy as well as oral analgesics and medication management patient report about 80% improvement overall with her pain situation patient [place] few days earlier though however with some significant pain in the low back and the right lower extremity which was out of proportion but after taking a hydrocodone patient reports pain went down has not returned significantly patient has pain low back and right lower extremity the posterior gluteus posterior thigh posterior calf on the right side but is here today for her intrathecal pump refill and reprogramming as well as PTM reprogramming. Patient rates her pain as a 6 on scale 10 is worse over the past week 5 on average 1 its least and is a 3 today. Patient reports no new motor or sensory deficits describes pain in the base the neck and shoulders are sharp and aching in the back is aching and burning on and off in intensity can be tight at times as well shooting the lower extremities but rarely in the upper extremities. Patient reports no significant side effects with medication has had appropriate K tracks portables appropriate urinalyses to date. Physical Exam: VS: Blood pressure is 142/85 pulse 71 respirations 18 temperature 97.3 F height is 5 feet 2 inches weight 191 pounds. PE: PHYSICAL EXAMINATION: GENERAL: The patient is awake, alert, oriented, appropriate, very pleasant in demeanor, patient [place] by her HEENT: Shows normocephalic, atraumatic. Extraocular movements are intact and symmetrical. Oral cavity: Mucous membranes moist and pink. Dentition is inta ct. NECK: Shows anterior throat supple without palpable lymphadenopathy noted. Swallow reflex symmetrical. CHEST: Shows normal on inspection. Breath sounds are clear bilaterally, distant but no rales or rhonchi. HEART: Shows S1, S2 clear. No murmurs auscultated. ABDOMEN: Soft, nontender, nondistended, obese. No palpable organomegaly is noted. No rebound or guarding demonstrated. Easily palpable intrathecal pump in the left lower quadrant with well-healed surgical scarring noted. BACK: Shows spine grossly in the midline. Normal-appearing cervical lordotic curvature. There is slightly increased thoracic kyphosis, some minor flattening of the lumbar lordotic curvature. Lumbar paraspinous muscles show symmetrical on inspection, on palpation shows some moderate tenderness diffusely throughout the upper, middle and lower distribution of the paraspinous muscles without specific trigger points, without radiation of pain. The patient has good rotational motion of the lumbar spine, both laterally as well as extension and flexion without significant difficulty. EXTREMITIES: Lower extremities show deep tendon reflexes 1+ in the patellar and tendo calcaneus tendons. Motor exam is 4 on a scale of 5 with right dorsiflexion, extension, quadriceps and hamstring flexion and 4/5 on the left. Peripheral pulses are 1 posterior tibial. No peripheral edema is noted bilaterally. Lower extremities are warm and dry to touch, equal in color and appearance. SKIN: Shows warm and dry, good turgor. No edema. No sores, rashes or bruising throughout. Procedure: Procedure: Options were discussed with the patient. Patient's old chart reviews her current medication regimen updated current review of systems updated today as well. We will proceed with intrathecal pump refill and reprogramming as well as PTM reprogrammed today with fluoroscopic guidance, secondary to patient's obesity. Risk discussed including not limited to bleeding infection possibility of extravasation of medication and resuscitative measures necessary as well as poor results regarding pain control and exposure to fluoroscopy. Patient understands wished to proceed. Patient will return for pump refill prior to June 20, 2021. Patient also given refill for tramadol 50 mg with instructions side effects aware discussed, again patient has had appropriate K tracks report as well as appropriate urinalysis to date. Medication Injected: Med Injected: Under sterile prep and drape patient's abdomen was prepped over the intrathecal pump, using a 22-gauge noncutting Medtronic brand needle the pump was entered without difficulty. Aspiration showed removal of 4 cc of old medication which was discarded. 40 cc of new medication containing bupivacaine clonidine and fentanyl was then replaced. Needle was withdrawn and sterile bandage was applied;pump was then reprogrammed for volume as well as alarm settings and PTM reprogrammed as well. Patient tolerated procedure well had no complications. Condition at Discharge: Condition at Discharge: Condition at discharge stable, patient tolerated procedure well and had no complications. CHITRA EPPERSON MD Apr 01, 2021 12:25
--- NOTE | 2021-04-01 12:26 | PDOC4 ---
Procedure Note: ICD 10 Code: ICD 10 Code: M54.12 And five 4.16 M51.36 722.81 Z 79.899 Procedure Note: Patient was consented for intrathecal pump refill and reprogramming with PTM reprogramming with fluoroscopic guidance secondary to patient's obesity Risk discussed including not limited to bleeding infection possibility of intravascular injection sequelae, extravasation of the medication and potential resuscitative measures as well as poor results running pain control and exposure to fluoroscopy. Patient understands wished to proceed. Under sterile prep and drape patient's abdomen was prepped over the intrathecal pump, using a 22-gauge noncutting Celotor brand needle the pump was entered w ithout difficulty. Aspiration showed removal of 4 cc of old medication which was discarded. 40 cc of new medication containing bupivacaine clonidine and fentanyl was then replaced. Needle was withdrawn and sterile bandage was applied;pump was then reprogrammed for volume as well as alarm settings and PTM reprogrammed as well. Patient tolerated procedure well had no complications. CHITRA EPPERSON MD Apr 01, 2021 12:26
== END | disposition home or self-care (01) ==
LOC: PNCL 11:13
PROVIDERS: ATTEND Anesthesiology
DX: M51.16 Intervertebral disc disorders with radiculopathy, lumbar region (principal); M96.1 Postlaminectomy syndrome, not elsewhere classified; M17.0 Bilateral primary osteoarthritis of knee; M19.011 Primary osteoarthritis, right shoulder; E78.00 Pure hypercholesterolemia, unspecified; J44.9 Chronic obstructive pulmonary disease, unspecified; G47.30 Sleep apnea, unspecified; E66.9 Obesity, unspecified; K21.9 Gastro-esophageal reflux disease without esophagitis; E03.9 Hypothyroidism, unspecified; F41.9 Anxiety disorder, unspecified; F32.9 Major depressive disorder, single episode, unspecified; Z86.73 Personal history of transient ischemic attack (TIA), and cerebral infarction without residual deficits; Z85.828 Personal history of other malignant neoplasm of skin; Z90.49 Acquired absence of other specified parts of digestive tract; Z90.710 Acquired absence of both cervix and uterus; Z98.890 Other specified postprocedural states; Z79.82 Long term (current) use of aspirin; Z79.899 Other long term (current) drug therapy; Z88.1 Allergy status to other antibiotic agents; Z88.8 Allergy status to other drugs, medicaments and biological substances
CPT/HCPCS: 62370; J0735; J3010; J3490; 77002

== ENCOUNTER 2021-05-14 09:14 | Day surgery (SDC) | payer MEDICARE ==
[2021-05-14] VITALS (14 sets, daily range): BP systolic 108–133; BP diastolic 62–86
[~2021-05-14] VITALS: Ht 175.3 cm; Wt 85.0 kg
[~2021-05-14 09:14] MED LIST changes: -BUPIVACAINE MPF 0.75% 30 ML VIAL. ONE; -FLUC100T4 PO; +FLUC100T6 PO; -cloNIDine PF 5,000 MCG/10 ML VIAL EP ONE; -fentaNYL PF VIAL 250 MCG/5 ML VIAL ONE
[2021-05-14] MEDS ORDERED: LIDOCAINE WITH 8.4% SOD BICARB 3 ML DISP.SYRIN. ONE (10:36)
[2021-05-14] MEDS ORDERED: MIDAZOLAM HCL/PF 2 MG/2 ML VIAL. ONE (10:42)
[2021-05-14] MEDS ORDERED: fentaNYL PF VIAL 100 MCG/2 ML VIAL ONE (10:42)
[2021-05-14] MEDS ORDERED: ALBU2.5V14 NEB (10:49)
[2021-05-14] MEDS ORDERED: FURO40TA4 IV (10:49)
[2021-05-14] MEDS ORDERED: MERO500V24 IV (10:49)
[2021-05-14] MEDS ORDERED: heparin SQ (10:49)
[2021-05-14] MEDS ORDERED: morphine IV (10:49)
[2021-05-14] MEDS ORDERED: VANC125C10 PO (10:49)
[2021-05-14] MEDS ORDERED: DAPT350V IV (10:49)
[2021-05-14] MEDS ORDERED: MICA100V3 IV (10:49)
[2021-05-14] MEDS ORDERED: MIDAZOLAM HCL/PF 2 MG/2 ML VIAL. IV ONE (11:15)
[2021-05-14] MEDS ORDERED: fentaNYL PF VIAL 100 MCG/2 ML VIAL IV ONE (11:15)
[2021-05-14] MEDS ORDERED: LIDOCAINE WITH 8.4% SOD BICARB 3 ML DISP.SYRIN. IJ ONE (11:15)
--- NOTE | 2021-05-14 12:24 | NUR ---
pt discharged to [facility] via [facility]. Report called to select RN.
--- NOTE | 2021-05-14 13:57 | RAD ---
Site ID: [id number] EXAMINATION: 1. CT-guided drain placement. (Chest tube with image guidance CPT 18704) 2. CT-guided drain placement in the left flank (retroperitoneal CPT 95656) 3. Ultrasound-guided chest tube placement, CPT 97530. 4. Moderate sedation (CPT fill) One or more of the following radiation dose reduction techniques was used: automated exposure control , adjustment of mA and/or KV according to patient size, and/or utilization of iterative reconstructio n technique. INDICATION: Loculated fluid collections in the left pleural cavity and the large fluid collection in the left flank region. SEDATION: Under physician supervision, Versed and fentanyl were administered intravenously for moder ate sedation. Pulse oximetry, heart rate, and BP were continuously monitored by an independent train ed observer present. The physician spent 62 minutes of feyj-vu-bwlx sedation time with the patient. CONSENT: Informed consent was obtained. The risks, benefits, potential complications and alternatives were reviewed and all questions answered. PROCEDURE: After maximal sterile barrier preparation and draping, 1% lidocaine was utilized for local anesthesia. 1. Left chest tube placement-medial: With the patient in right side down position, posterior intercostal approach was selected. A 19-gauge One step sheathed needle was introduced utilizing CT guidance into the medial loculated pleural fluid collection. CT images confirm appropriate positioning. After standard over a guidewire exchange tech nique and after serial dilatation, a 8 Greenlandic drain is placed and distal loop formed in the collecti on. A 30 ml of brown cloudy fluid is aspirated and sent to microbiology. The drainage catheter is connected to vacuum drainage bag . 2. Left chest tube placement-lateral collection With the patient in right side down position, a approach was selected. A 19-gauge One step sheathed needle was introduced utilizing live ultrasound guidance into the loculated lateral pleural fluid col lection. Ultrasound images documented to confirm appropriate positioning. After standard over a guide wire exchange technique and after serial dilatation, a 8 Greenlandic drain is placed and distal loop form ed in the collection. The patient tolerated the procedure well with no immediate complications. 3. Left flank retroperitoneal drain placement: With the patient in right side down position, posterior left flank approach was selected. A 19-gaugeO ne step sheathed needle was introduced utilizing CT guidance into the left flank catheter fluid colle ction. CT images confirm appropriate positioning. After standard over a guidewire exchange technique and after serial dilatation, a 14 Greenlandic drain is placed and distal loop formed in the collection. A 10 ml of thick dark brown cloudy fluid is aspirated and sent to microbiology. The drainage catheter is connected to vacuum drainage bag . FINDINGS: 2 loculated fluid collections in the left pleural cavity and the thick probably loculated collection in the left flank retroperitoneal area also seen. IMPRESSION: 1. Successful CT-guided, 8 Greenlandic, drain placement in lateral left pleural fluid collection. 2. Successful ultrasound guided, 8 Greenlandic drain placement in medial left the pleural fluid collection . 3. Successful CT-guided placement of 14 Greenlandic drain in the left retroperitoneal flank fluid collecti on. Electronically signed by: Nino Anderson MD (05/14/2021 1:55 PM) [id number]
--- NOTE | 2021-05-14 13:57 | RAD ---
Site ID: [id number] EXAMINATION: 1. CT-guided drain placement. (Chest tube with image guidance CPT 45271) 2. CT-guided drain placement in the left flank (retroperitoneal CPT 09095) 3. Ultrasound-guided chest tube placement, CPT 56656. 4. Moderate sedation (CPT fill) One or more of the following radiation dose reduction techniques was used: automated exposure control , adjustment of mA and/or KV according to patient size, and/or utilization of iterative reconstructio n technique. INDICATION: Loculated fluid collections in the left pleural cavity and the large fluid collection in the left flank region. SEDATION: Under physician supervision, Versed and fentanyl were administered intravenously for moder ate sedation. Pulse oximetry, heart rate, and BP were continuously monitored by an independent train ed observer present. The physician spent 62 minutes of eyqg-ue-eeiv sedation time with the patient. CONSENT: Informed consent was obtained. The risks, benefits, potential complications and alternatives were reviewed and all questions answered. PROCEDURE: After maximal sterile barrier preparation and draping, 1% lidocaine was utilized for local anesthesia. 1. Left chest tube placement-medial: With the patient in right side down position, posterior intercostal approach was selected. A 19-gauge One step sheathed needle was introduced utilizing CT guidance into the medial loculated pleural fluid collection. CT images confirm appropriate positioning. After standard over a guidewire exchange tech nique and after serial dilatation, a 8 Scottish drain is placed and distal loop formed in the collecti on. A 30 ml of brown cloudy fluid is aspirated and sent to microbiology. The drainage catheter is connected to vacuum drainage bag . 2. Left chest tube placement-lateral collection With the patient in right side down position, a approach was selected. A 19-gauge One step sheathed needle was introduced utilizing live ultrasound guidance into the loculated lateral pleural fluid col lection. Ultrasound images documented to confirm appropriate positioning. After standard over a guide wire exchange technique and after serial dilatation, a 8 Scottish drain is placed and distal loop form ed in the collection. The patient tolerated the procedure well with no immediate complications. 3. Left flank retroperitoneal drain placement: With the patient in right side down position, posterior left flank approach was selected. A 19-gaugeO ne step sheathed needle was introduced utilizing CT guidance into the left flank catheter fluid colle ction. CT images confirm appropriate positioning. After standard over a guidewire exchange technique and after serial dilatation, a 14 Scottish drain is placed and distal loop formed in the collection. A 10 ml of thick dark brown cloudy fluid is aspirated and sent to microbiology. The drainage catheter is connected to vacuum drainage bag . FINDINGS: 2 loculated fluid collections in the left pleural cavity and the thick probably loculated collection in the left flank retroperitoneal area also seen. IMPRESSION: 1. Successful CT-guided, 8 Scottish, drain placement in lateral left pleural fluid collection. 2. Successful ultrasound guided, 8 Scottish drain placement in medial left the pleural fluid collection . 3. Successful CT-guided placement of 14 Scottish drain in the left retroperitoneal flank fluid collecti on. Electronically signed by: Nino Anderson MD (05/14/2021 1:55 PM) [id number]
--- NOTE | 2021-05-14 13:57 | RAD ---
Site ID: [id number] EXAMINATION: 1. CT-guided drain placement. (Chest tube with image guidance CPT 82616) 2. CT-guided drain placement in the left flank (retroperitoneal CPT 88276) 3. Ultrasound-guided chest tube placement, CPT 11436. 4. Moderate sedation (CPT fill) One or more of the following radiation dose reduction techniques was used: automated exposure control , adjustment of mA and/or KV according to patient size, and/or utilization of iterative reconstructio n technique. INDICATION: Loculated fluid collections in the left pleural cavity and the large fluid collection in the left flank region. SEDATION: Under physician supervision, Versed and fentanyl were administered intravenously for moder ate sedation. Pulse oximetry, heart rate, and BP were continuously monitored by an independent train ed observer present. The physician spent 62 minutes of isgl-ep-mwid sedation time with the patient. CONSENT: Informed consent was obtained. The risks, benefits, potential complications and alternatives were reviewed and all questions answered. PROCEDURE: After maximal sterile barrier preparation and draping, 1% lidocaine was utilized for local anesthesia. 1. Left chest tube placement-medial: With the patient in right side down position, posterior intercostal approach was selected. A 19-gauge One step sheathed needle was introduced utilizing CT guidance into the medial loculated pleural fluid collection. CT images confirm appropriate positioning. After standard over a guidewire exchange tech nique and after serial dilatation, a 8 Polish drain is placed and distal loop formed in the collecti on. A 30 ml of brown cloudy fluid is aspirated and sent to microbiology. The drainage catheter is connected to vacuum drainage bag . 2. Left chest tube placement-lateral collection With the patient in right side down position, a approach was selected. A 19-gauge One step sheathed needle was introduced utilizing live ultrasound guidance into the loculated lateral pleural fluid col lection. Ultrasound images documented to confirm appropriate positioning. After standard over a guide wire exchange technique and after serial dilatation, a 8 Polish drain is placed and distal loop form ed in the collection. The patient tolerated the procedure well with no immediate complications. 3. Left flank retroperitoneal drain placement: With the patient in right side down position, posterior left flank approach was selected. A 19-gaugeO ne step sheathed needle was introduced utilizing CT guidance into the left flank catheter fluid colle ction. CT images confirm appropriate positioning. After standard over a guidewire exchange technique and after serial dilatation, a 14 Polish drain is placed and distal loop formed in the collection. A 10 ml of thick dark brown cloudy fluid is aspirated and sent to microbiology. The drainage catheter is connected to vacuum drainage bag . FINDINGS: 2 loculated fluid collections in the left pleural cavity and the thick probably loculated collection in the left flank retroperitoneal area also seen. IMPRESSION: 1. Successful CT-guided, 8 Polish, drain placement in lateral left pleural fluid collection. 2. Successful ultrasound guided, 8 Polish drain placement in medial left the pleural fluid collection . 3. Successful CT-guided placement of 14 Polish drain in the left retroperitoneal flank fluid collecti on. Electronically signed by: Nino Anderson MD (05/14/2021 1:55 PM) [id number]
--- NOTE | 2021-05-19 18:08 | PATHOLOGY ---
Note [facility] Accession Number: [id number] TESTS RESULT FLAG UNITS REF RANGE LAB Clinician Provided Cytology Information No. of containers..01 Other (Miscellaneous) Source: 01 L PLEURAL FLUID DIAGNOSIS: 02 L PLEURAL FLUID NEGATIVE FOR MALIGNANT CELLS. DEGENERATED RED BLOOD CELLS AND INFLAMMATORY CELLS AND NECROTIC TISSUE PRESENT Signed out by: 02 Edwin Virgen MD, Pathologist NPI- [id number] Performed by: Roya Morrison, Double Needle Operator ([facility]) Gross description: 01 30ML, BROWN, TURBID /LCS 05/14/2021 2247 Local FLAG LEGEND: L-Low Normal,H-High Normal,LL-Alert Low,HH-Alert High <-Panic Low,>-Panic High,A-Abnormal,AA-Critical Abnormal Performed at: [address] [facility] [place] [address] Vitor Castaneda MD, 02 [facility] [address] [place] [address] Edwin Virgen MD, Performed at: [address], [place], [place] [id number] MD Vitor Castaneda MD Phone: [phone]
== END 2021-05-14 12:30 | disposition home or self-care (01) ==
LOC: INTRAD 09:14 → EDSTATUS 10:00 → INTRAD 12:30
PROVIDERS: ATTEND Internal Medicine
DX: J91.8 Pleural effusion in other conditions classified elsewhere (principal); I10 Essential (primary) hypertension; J44.9 Chronic obstructive pulmonary disease, unspecified; G47.30 Sleep apnea, unspecified; E66.9 Obesity, unspecified; K21.9 Gastro-esophageal reflux disease without esophagitis; M19.90 Unspecified osteoarthritis, unspecified site; E03.9 Hypothyroidism, unspecified; F41.9 Anxiety disorder, unspecified; F32.9 Major depressive disorder, single episode, unspecified; Z79.899 Other long term (current) drug therapy; Z98.890 Other specified postprocedural states
CPT/HCPCS: 32557; 49406; 87071; 87075; 87077; 87102; 88112; 88305; 99152; 99153; C1769; C1892; C1894; J2250; J3010; J3490

== ENCOUNTER → 2021-09-09 | Outpatient (CLI) | payer MEDICARE ==
[2021-06-03 10:55] VITALS: BP 147/86
[~2021-09-09] MED LIST changes: +ACET325T21 GT; +ALBU2.5V14 NEB; +ALPR0.254 JT; +ASPI-630 PO; +BUPIVACAINE MPF 0.75% 30 ML VIAL. ONE; +CHOL5000 JT; +CYAN100031 JT; +DAPT350V IV; +ESCITALOPRA5 MG/5 ML JT; +FOLI20CA PO; +FURO40TA4 IV; +FURO40TA4 JT; +GABA300C18 JT; +HEPA1DIS11 IV; +LACT1CAP37 JT; +LIDO700A21 TP; +LOPE2TAB27 JT; +MELA5TAB20 JT; +MERO500V24 IV; +METO25TA4 JT; +MICA100V3 IV; +MIRT-36 PO; +MULT-650 JT; +PANT20TA2 JT; +POLY17PO29 JT; +QUET25TA5 PO; +VANC125C10 PO; +cloNIDine PF 5,000 MCG/10 ML VIAL EP ONE; +fentaNYL PF VIAL 250 MCG/5 ML VIAL ONE; +heparin SQ; +morphine IV
--- NOTE | 2021-09-09 14:09 | PDOC ---
Progress Note - Pain Clinic Date of Service: DOS: DATE: 09/09/21 TIME: 14:04 Diagnosis: Dx: Cervical radiculopathy with cervical postlaminectomy syndrome Lumbar to colopathy with lumbar degenerative disc disease Intrathecal pump Spinal cord stimulator Bilateral knee joint pain with osteoarthritis Right shoulder joint pain with osteoarthritis History or Present Illness: HPI: 76-year-old female returns for follow-up status post intrathecal pump therapy as well as medical stimulator therapy patient returns today for intrathecal pump evaluation and reprogramming as well as refill of medication. Patient reports he is doing fairly well she is been recently hospitalized however with significant pancreatitis with a long hospital course approximately 2months and still has 2 CONSTANTIN drains at the site of recent resection and surgery in the upper abdomen patient reports her pain has been increased because of this but she has mainly been bedridden since the hospitalization rates her pain as a 10 on scale 10 is worse over the past week 7 on average 2 to [place] is a 7 today. Patient reports pain in the back mid back upper back low back as well as base of neck and shoulders as well as lower extremities patient reports tingling in the legs and burning in the back aching in the back as well. Worse with changing positions again patient is using a hoist to transfer from wheelchair to chair or bed and reverse. Patient reports no side effects with the medications however and her pain level is fairly well controlled except for the recent surgery with the intrathecal pump and spinal cord stimulator combined by about 75%. Patient reports no significant side effects from the medications at this time. Patient reports difficulty sleeping however over the past month or so. Physical Exam: VS: Blood pressure is 149/81 pulse 67 respirations 18 temperature 97.9 F height 5 feet 2 inches weight 185 pounds. PE: PHYSICAL EXAMINATION: GENERAL: The patient is awake, alert, oriented, appropriate, very pleasant in demeanor, patient companied by her . Patient in reclining wheelchair with pressure points padded. HEENT: Shows normocephalic, atraumatic. Extraocular movements are intact and symmetrical. Oral cavity: Mucous membranes moist and pink. NECK: Shows anterior throat supple without palpable lymphadenopathy noted. Swallow reflex symmetrical. CHEST: Shows normal on inspection. Breath sounds are clear bilaterally, distant slightly coarse but no rales or rhonchi auscultated no wheezes.. HEART: Shows S1, S2 clear. No murmurs auscultated. ABDOMEN: Soft, nontender, nondistended. No palpable organomegaly is noted. Easily palpable intrathecal pump in the left lower quadrant with well-healed surgical scarring noted also CONSTANTIN drains present as noted. BACK: Shows spine grossly in the midline. Normal-appearing cervical lordotic curvature. There is slightly increased thoracic kyphosis, some minor flattening of the lumbar lordotic curvature. Lumbar paraspinous muscles show symmetrical on inspection, on palpation shows some moderate tenderness diffusely throughout the upper, middle and lower distribution of the paraspinous muscles, but without specific trigger points, without radiation of pain. EXTREMITIES: Lower extremities show deep tendon reflexes 1+ in the patellar and tendo calcaneus tendons. Motor exam is 4 on a scale of 5 with right dorsiflexion, extension, quadriceps and hamstring flexion and 4/5 on the left. Peripheral pulses are 1+ posterior tibial. 1+ peripheral edema is noted bilaterally. Lower extremities are warm and dry. SKIN: Shows warm and dry, good turgor. No edema. No sores, rashes or bruising throughout. Procedure: Procedure: Options were discussed with the patient. Patient's old chart was reviewed as her current medication regimen updated current review of systems updated today as well. We will refill and reprogramming to thecal pump as well as PTM reprogramming today. Risk were discussed including not limited to bleeding infection possibility of extravasation of medication and possible resuscitative measures as necessary as well as poor results regarding pain control. Patient understands and wishes to proceed. Patient will return to the clinic for pump refill prior to November 25, 2021 as this is the date for her refill at the alarm volume as set with PTM full use. Medication Injected: Med Injected: Under sterile prep and drape patient's abdomen was prepped over the intrathecal pump, using a 22-gauge noncutting Medtronic brand needle the pump was entered without difficulty. Aspiration showed removal of 5 cc of old medication which was discarded. 40 cc of new medication containing bupivacaine clonidine and fentanyl was then replaced. Needle was withdrawn and sterile bandage was applied;pump was then reprogrammed for volume as well as alarm settings and PTM reprogrammed as well. Patient tolerated procedure well had no complications. Condition at Discharge: Condition at Discharge: Condition at discharge stable, patient tolerated procedure well and had no complications. CHITRA EPPERSON MD September 09, 2021 14:09
--- NOTE | 2021-09-09 14:11 | PDOC4 ---
Procedure Note: ICD 10 Code: ICD 10 Code: M54.12 722.81 M54.16 M51.36 Procedure Note: Patient was consented for intrathecal pump refill and reprogramming with PTM reprogramming. Risk were discussed including but not limited to bleeding infection possibility of extravasation of medication with resuscitative measures as necessary as well as poor results regarding pain control. Patient understands and wishes to proceed. Under sterile prep and drape patient's abdomen was prepped over the intrathecal pump, using a 22-gauge noncutting [place] brand needle the pump was entered without difficulty. Aspiration showed removal of 5 cc of old medication which was discarded. 40 cc of new medication containing bupivacaine clonidine and fentanyl was then replaced. Needle was withdrawn and sterile bandage was applied;pump was then reprogrammed for volume as well as alarm settings and PTM reprogrammed as well. Patient tolerated procedure well had no complications. CHITRA EPPERSON MD September 09, 2021 14:11
== END | disposition home or self-care (01) ==
LOC: PNCL 12:50
PROVIDERS: ATTEND Anesthesiology
DX: M51.16 Intervertebral disc disorders with radiculopathy, lumbar region (principal); M96.1 Postlaminectomy syndrome, not elsewhere classified; M17.0 Bilateral primary osteoarthritis of knee; M19.011 Primary osteoarthritis, right shoulder; E78.00 Pure hypercholesterolemia, unspecified; J44.9 Chronic obstructive pulmonary disease, unspecified; G47.30 Sleep apnea, unspecified; K21.9 Gastro-esophageal reflux disease without esophagitis; E66.9 Obesity, unspecified; E03.9 Hypothyroidism, unspecified; F41.9 Anxiety disorder, unspecified; F32.9 Major depressive disorder, single episode, unspecified; Z85.828 Personal history of other malignant neoplasm of skin; Z87.440 Personal history of urinary (tract) infections; Z90.49 Acquired absence of other specified parts of digestive tract; Z90.710 Acquired absence of both cervix and uterus; Z98.890 Other specified postprocedural states; Z79.899 Other long term (current) drug therapy; Z88.1 Allergy status to other antibiotic agents; Z88.8 Allergy status to other drugs, medicaments and biological substances
CPT/HCPCS: 62370; J0735; J3010; J3490